=== PATIENT | male | born 1960 | race Caucasian/White ===

== ENCOUNTER 2017-08-20 09:49 | Day surgery (SDC) | payer OTHER, SELFPAY ==
--- NOTE | 2017-08-14 09:18 | EKG12_ITS ---
Test Reason : PRE OP Blood Pressure : / mmHG Vent. Rate : 047 BPM Atrial Rate : 047 BPM P-R Int : 220 ms QRS Dur : 098 ms QT Int : 470 ms P-R-T Axes : 069 -06 012 degrees QTc Int : 415 ms Marked sinus bradycardia with 1st degree A-V block Abnormal ECG Confirmed by LIZ BLAKE, ALEX ([id number]), deputy editor in chief MARICRUZ ARANA ([id number]) on 08/15/2017 3:18:30 PM Referred By: Sarkis Mcdonald Confirmed By:ALEX HILL MD
[2017-08-14 11:27] LABS: Anion Gap 5 (5-15); BUN 16 mg/dL (7-18); BUN/Creat Ratio 15.7 RATIO (10-20); Calcium,Total 8.6 mg/dL (8.5-10.1); Chloride 106 mmol/L (98-107); Creatinine, Serum 1.02 mg/dL (0.70-1.30); EST Glomerular Filtration Rate 80 mL/min (>60); Est Glom Filt Rate - Afr Amer 97 mL/min (>60); Glucose 104 mg/dL (74-106); Potassium 3.9 mmol/L (3.5-5.1); Sodium Level 141 mmol/L (136-145)
--- NOTE | 2017-08-20 | TUR_PTH ---
PATIENT: ALEYDA PEPE [place] [facility] [id number] AGE/SX: 56/M ROOM: RE08/20/[address]: Dr. Sarkis Mcdonald MD : [id number] BED: DIS: 08/20/2017 SPEC #: [id number] RECD: 08/20/17 14:33 STATUS: PAPA TORI #: [id number] MIKE: 08/20/17 00:[address]: Sarkis Mcdonald DEPT: SURGICAL PATHOLOGY RECD BY: Channing Richardson ENTERED: 08/20/17 14:33 SP TYPE: TURBINATES OTHR DR: Dr. Octavio García MD Tissues: Nasal turbinate, NOS Procedures: Surgery Specimen Level IV HEADER OPERATION: Submucous resection inferior turbinates, bilaterally PRE-OP DIAGNOSIS: Nasal congestion hypertrophy of nasal turbinates TISSUE SUBMITTED: Turbinate tissue, right and left MICROSCOPIC DIAGNOSIS Turbinate tissue, right and left: Fragments of respiratory mucosal tissue with minimal chronic inflammation, fibroconnective tissue and blood clots. ANIKA:octavio 08/21/17 MICROSCOPIC DESCRIPTION Slides are reviewed. GROSS DESCRIPTION Received in fixative is one container labeled with the patient's name and designated right and left turbinate tissue. The specimen consists of multiple irregular fragments of light mclain soft tissue that in aggregate measure 1 x 0.5 x 0.1 cm. The specimen is totally submitted in one cassette. / AM:octavio 08/20/17 TC:3 CPT: 32405
[2017-08-20 10:06] VITALS: BP 139/91; PULSE 52; RESP 16; TEMP 35.6; O2SAT 96; BMI 29.9
[2017-08-20 10:06] LABS: Hematocrit 41.8 % (40-54); Hemoglobin 14.5 g/dl (13.0-16.5); Mean Corp Hgb Conc 34.7 g/gl (32-36); Mean Corpuscular Hgb 29.3 pg (27.0-32.0); Mean Corpuscular Volume 84.4 fL (80-94); Mean Platelet Vol. 10.1 fl (6.2-12.0); Platelet Count 90 K/mm3 (150-450); RBC Distribution Width CV 13.2 % (11.6-14.6); RBC Distribution Width SD 40.3 fl (35.1-43.9); Red Blood Count 4.95 M/mm3 (4.6-6.2); White Blood Count 2.4 K/mm3 (4.4-11.0)
[2017-08-20 10:07] LABS: Scan Indicated on CBC? Y/N NO
--- NOTE | 2017-08-20 10:12 | PCM.DC ---
You will use the following diet at home:: Regular Discharge Activity: Return to Normal Activity, - - No nose blowing Additional Activity Instructions:: Start saline irrigation 3x/day on 08/21/17. Allergies/Adverse Reactions: Allergies fluoxetine [From Prozac] Allergy (Verified 08/13/17 10:00) Hives oxycodone Adverse Reaction (Verified 08/13/17 10:00) HICCUPS Medications to take at Discharge B Complex with Vitamin C [Vitamin B-Complex with Vit C] 1 each PO DAILY 09/29/16 Doxazosin Mesylate [Cardura] 8 mg PO DAILY 09/29/16 Fish Oil/Dha/Epa [Fish Oil 1,200 mg Fish Oil] 1 each PO BID 09/29/16 Milk Thistle Seed Extract [Milk Thistle] 250 mg PO BID 09/29/16 Multivitamin [Multiple Vitamins] 1 each PO DAILY 09/29/16 Nadolol [Corgard (Beta Chaitanya)] 80 mg PO DAILY 09/29/16 Omeprazole [Prilosec] 40 mg PO DAILY 09/29/16 RX: Hydrochlorothiazide 12.5 mg PO DAILY 09/29/16 RX: Melatonin 10 mg PO QHS 08/13/17 RX: Naproxen 500 mg PO PRN PRN 08/13/17 Rizatriptan Benzoate [Rizatriptan] 10 mg PO PRN PRN 08/13/17 Verapamil HCl [Verapamil ER] 180 mg PO DAILY 08/13/17 Primary Care Physician: Octavio García MD [Primary Care Provider] -
[2017-08-20] MEDS: Mupirocin Ointment 22gm Tube 1 APPLIC (11:00)
[2017-08-20] MEDS: Oxymetazoline 0.05% 1 SPRAY SPRAY.BTL 15 SPRAY (11:00)
--- NOTE | 2017-08-20 11:14 | PCM.OPRPT ---
Report of Operation Date of Procedure: 08/20/17 Pre-Operative Diagnosis: nasal airway obstruction. Inferior turbinate hypertrophy bilaterally Post-Operative Diagnosis: same Surgery/Procedure Performed:: Bilateral submucous resection inferior turbinates Description of Surgical Findings:: 4+ turbinates Type of Anesthesia:: General Anesthesiologist: Rudi Nazario Specimen's removed: turbinate contents Estimated Blood Loss (mL): minimal Description of Procedure: The patient was taken to the OR on 08/20/17. He was placed in the supine position on the operating room table. He was given sufficient general anesthesia. He was draped steriley. 1% lidocaine with epinephrine ([id number]) was injected into the nasal septum, bilateral anterior portion of the inferior turbinates. I made an incision on the left side at the mucocutaneous junction of the anterior end of the inferior turbinate. I then made a submucosal plane with a [place] elevator. Next, submucous resection was carried out with a microdebrider. Afrin pledgets were used for hemostasis. I then closed the incision with a 4-0 chromic. I made an incision on the right side at the mucocutaneous junction of the anterior end of the inferior turbinate. I then made a submucosal plane with a Oscar elevator. Next, submucous resection was carried out with a microdebrider. Afrin pledgets were used for hemostasis. I then closed the incision with a 4-0 chromic. Jean-Pierre was applied to both incisions. Correia nasal splints were applied to each side of the septum and sewn through and through with 3-0 silk. The procedure was terminated. The patient was awoken and brought to the recovery room in stable condition. Blood loss minimal, replacement none. Sponge, needle and instrument count were correct at the end of the procedure.
--- NOTE | 2017-08-20 11:21 | OP.PCM_ITS ---
Report of Operation Date of Procedure: 08/20/17 Pre-Operative Diagnosis: nasal airway obstruction. Inferior turbinate hypertrophy bilaterally Post-Operative Diagnosis: same Surgery/Procedure Performed:: Bilateral submucous resection inferior turbinates Description of Surgical Findings:: 4+ turbinates Type of Anesthesia:: General Anesthesiologist: Rudi Nazario Specimen's removed: turbinate contents Estimated Blood Loss (mL): minimal Description of Procedure: The patient was taken to the OR on 08/20/17. He was placed in the supine position on the operating room table. He was given sufficient general anesthesia. He was draped steriley. 1% lidocaine with epinephrine (1:[id number]) was injected into the nasal septum, bilateral anterior portion of the inferior turbinates. I made an incision on the left side at the mucocutaneous junction of the anterior end of the inferior turbinate. I then made a submucosal plane with a [employer] [place] elevator. Next, submucous resection was carried out with a microdebrider. Afrin pledgets were used for hemostasis. I then closed the incision with a 4-0 chromic. I made an incision on the right side at the mucocutaneous junction of the anterior end of the inferior turbinate. I then made a submucosal plane with a Oscar elevator. Next, submucous resection was carried out with a microdebrider. Afrin pledgets were used for hemostasis. I then closed the incision with a 4-0 chromic. Jean-Pierre was applied to both incisions. Correia nasal splints were applied to each side of the septum and sewn through and through with 3-0 silk. The procedure was terminated. The patient was awoken and brought to the recovery room in stable condition. Blood loss minimal, replacement none. Sponge, needle and instrument count were correct at the end of the procedure.
[2017-08-20 11:23] VITALS: BP 139/91; BP 154/99; PULSE 68; RESP 16; TEMP 36.4; O2SAT 95
[2017-08-20 11:30] VITALS: BP 139/91; BP 162/108; PULSE 67; RESP 16; O2SAT 95
[2017-08-20 11:45] VITALS: BP 139/91; BP 176/107; PULSE 60; RESP 16; O2SAT 95
[2017-08-20 12:00] VITALS: BP 139/91; BP 187/99; PULSE 59; RESP 16; TEMP 36.2; O2SAT 94
[2017-08-20 13:06] VITALS: BP 139/91
== END 2017-08-20 13:12 | disposition home or self-care (01) ==
LOC: SDC 09:50 → AC 09:50
PROVIDERS: Anesthesiology; Family Provider Family Medicine; PCP Family Medicine; Visit Provider Otolaryngology
PROC: (CPT 30520; principal; 2017-08-20 10:50)
DX: J34.3 Hypertrophy of nasal turbinates (principal); J34.89 Other specified disorders of nose and nasal sinuses; I10 Essential (primary) hypertension; K21.9 Gastro-esophageal reflux disease without esophagitis; G43.909 Migraine, unspecified, not intractable, without status migrainosus; Z79.899 Other long term (current) drug therapy; Z82.49 Family history of ischemic heart disease and other diseases of the circulatory system
CPT/HCPCS: 00160; 30140; 36415; 80048; 85027; 88304; 88305; J7120

== ENCOUNTER → 2020-09-24 07:29 | Outpatient (CLI) | payer OTHER, SELFPAY ==
--- NOTE | 2020-09-24 07:38 | US_ITS ---
STUDY: ABDOMINAL ULTRASOUND REASON FOR EXAM: Male, 59 years old. ALCOHOLIC CIRRHOSIS TECHNIQUE: Transabdominal ultrasound was performed with real-time and static corado scale imaging. TECHNICAL QUALITY: Adequate. COMPARISON: None. FINDINGS: Liver: The liver measures 17.3 cm. There is a heterogeneous echogenicity of the liver. The bile ducts are within normal limits. There is hepatic color flow. The direction of portal flow is hepatopetal. There is no demonstrated mass lesion. Portal vein measurement: Gallbladder: The patient is status post cholecystectomy. Common Bile Duct (C.B.D.): The common bile duct measures 5 mm. Pancreas: There is nonvisualization of the pancreas due to overlying bowel gas. Spleen: There is splenomegaly. The spleen measures 19.1 cm x 10.3 cm x 9.2 cm. Right Kidney: Normal size of the right kidney. The right kidney measures 12.6 cm x 5.9 cm x 7.2 cm. Normal renal cortex. The right cortex measures 2.3 cm. There is no demonstrated renal mass or cyst. There is no right hydronephrosis. Left Kidney: Normal size of the left kidney. The left kidney measures 13.1 cm x 5.5 cm x 5.3 cm. Normal renal cortex. The left cortex measures 1.6 cm. There is a 2.6 cm x 1.8 cm x 2.5 cm cyst in the upper pole of the left kidney. There is no left hydronephrosis. Aorta: Unremarkable I.V.C.: The IVC is patent. There is no ascites. US/Abdomen Complete IMPRESSION: Heterogeneous echotexture of the liver. Splenomegaly. Left renal cyst. Electronically Signed: Tam Valdez MD at 10:06 EDT , Service support ,
== END ==
PROVIDERS: PCP Family Medicine; Referring Provider Internal Medicine Gastroenterology; Visit Provider Internal Medicine Gastroenterology
DX: K70.30 Alcoholic cirrhosis of liver without ascites (principal); R16.1 Splenomegaly, not elsewhere classified; D69.6 Thrombocytopenia, unspecified
CPT/HCPCS: 76700

== ENCOUNTER → 2021-10-07 | Outpatient (CLI) | payer OTHER, SELFPAY | END | disposition home or self-care (01) | PROVIDERS: PCP Family Medicine; Visit Provider Otolaryngology | DX: G47.33 Obstructive sleep apnea (adult) (pediatric) (principal) | CPT/HCPCS: 95810 ==

== ENCOUNTER → 2021-12-28 | Outpatient (CLI) | payer OTHER, SELFPAY ==
[2021-12-28 17:42] LABS: Absolute Lymphocyte Count 0.52 X10^3/uL (0.83-4.51); Absolute Neutrophil Count 2.1 X10^3/uL (2.0-7.7); Basophil# 0.01 X10^3/uL; Basophil% 0.3 % (0-1); Eosinophil# 0.03 X10^3/uL; Hemoglobin 15.4 g/dL (13.0-16.5); Lymphocyte # 0.52 X10^3/ul (0.83-4.51); Lymphocyte % 17.6 % (19-41); Mean Corp Hgb Conc 33.5 g/dL (32-36); Mean Corpuscular Hgb 29.2 pg (27.0-32.0); Mean Corpuscular Volume 87.1 fL (80-94); Mean Platelet Vol. 11.1 fl (6.2-12.0); Monocyte# 0.27 X10^3/uL; Monocyte% 9.2 % (0-10); NRBC Flagged by Analyzer 0 % (0-5); Neutrophil # 2.11 X10^3/uL (2.7-7.7); Neutrophil % 71.6 % (47-70); POSITIVE COUNT YES; POSITIVE DIFFERENTIAL YES; Platelet Count 72 K/mm3 (150-450); RBC Distribution Width CV 13.7 % (11.6-14.6); RBC Distribution Width SD 44.2 fl (35.1-43.9); Red Blood Count 5.28 M/mm3 (4.6-6.2)
[2021-12-28 17:48] LABS: Differential Indicated SCAN CRITERIA MET
[2021-12-28 18:07] LABS: Differential Comment SCANNED
[2021-12-28 18:09] LABS: ALB/GLOB Ratio 1.2 RATIO (0.9-2.4); AST(SGOT) 28 U/L (15-37); Alanine Aminotransfer ALT/SGPT 42 U/L (16-61); Albumin, Serum 3.9 g/dL (3.2-5.0); Alkaline Phosphatase 68 U/L (45-117); Anion Gap 7 (5-15); BUN 29 mg/dL (7-18); BUN/Creat Ratio 20.7 RATIO (10-20); Calcium,Total 9.1 mg/dL (8.5-10.1); Chloride 108 mmol/L (98-107); EST Glomerular Filtration Rate 55 mL/min (>60); Est Glom Filt Rate - Afr Amer 66 mL/min (>60); Globulin 3.2 g/dL (2.2-4.2); Glucose 103 mg/dL (74-106); Potassium 3.9 mmol/L (3.5-5.1); Protein, Total 7.1 g/dL (6.4-8.2); Sodium Level 141 mmol/L (136-145)
[2021-12-29 13:22] LABS: Pathologist Review Reviewed
[2021-12-30 10:27] LABS: AFP, Tumor Marker 4.8 ng/mL (0.0-8.4)
== END | disposition home or self-care (01) ==
PROVIDERS: PCP Family Medicine; Referring Provider Internal Medicine Gastroenterology; Visit Provider Internal Medicine Gastroenterology
DX: K74.60 Unspecified cirrhosis of liver (principal)
CPT/HCPCS: 36415; 80053; 82105; 85025; 85730; 87086

== ENCOUNTER → 2022-01-04 | Outpatient (CLI) | payer OTHER, SELFPAY ==
--- NOTE | 2022-01-04 13:00 | MRI_ITS ---
EXAM: MR ABDOMEN WITHOUT AND WITH INTRAVENOUS CONTRAST CLINICAL INDICATION: CIRRHOSIS TECHNIQUE: Multiplanar and multisequence MR images of the abdomen without and with intravenous contrast. This report was created using [employer] report [employer] technology. CONTRAST: IV 22ml Dotarem COMPARISON: None. FINDINGS: LOWER THORAX: Unremarkable. No pleural effusion. LIVER: There is a diffuse contour abnormality of the liver consistent with cirrhotic changes. GALLBLADDER AND BILE DUCTS: There is non-visualization of the gallbladder, which may be secondary to either contraction or a prior cholecystectomy. No intra- or extrahepatic biliary ductal dilation. PANCREAS: Unremarkable. No focal cystic or solid mass. SPLEEN: There is severe splenomegaly. ADRENALS: Unremarkable. No nodules. KIDNEYS AND URETERS: Unremarkable. Normal renal size and position. No hydronephrosis. INTRAPERITONEAL SPACE: Unremarkable. No ascites or other fluid collection. No free air. VASCULATURE: Unremarkable. Abdominal aorta is non-dilated. LYMPH NODES: No enlarged lymph nodes. MRI/MRI Abd WITH and W/O Contrast IMPRESSION: 1. There is a diffuse contour abnormality of the liver consistent with cirrhotic changes. 2. There is severe splenomegaly. Electronically Signed: Derian Padilla MD at 20:10 EDT ,
== END | disposition home or self-care (01) ==
LOC: MRI 12:16
PROVIDERS: PCP Family Medicine; Visit Provider Internal Medicine Gastroenterology
DX: K74.60 Unspecified cirrhosis of liver (principal); R16.1 Splenomegaly, not elsewhere classified
CPT/HCPCS: 74183; A9575; A4216

== ENCOUNTER → 2023-05-21 | Outpatient (CLI) | payer OTHER, SELFPAY ==
--- NOTE | 2023-05-21 06:35 | EKG12_ITS ---
Test Reason : PREOP Blood Pressure : / mmHG Vent. Rate : 062 BPM Atrial Rate : 062 BPM P-R Int : 216 ms QRS Dur : 092 ms QT Int : 432 ms P-R-T Axes : 061 -13 006 degrees QTc Int : 438 ms Sinus rhythm with 1st degree A-V block with Premature atrial complexes Otherwise normal ECG Confirmed by LIZ BLAKE, ALEX ([id number]), food editor HALLEY MCCORMICK ([id number]) on 05/21/2023 2:32:42 PM Referred By: Sarkis Mcdonald Confirmed By:ALEX HILL MD
[2023-05-21 07:04] LABS: Hematocrit 41.9 % (40-54); Mean Corp Hgb Conc 33.4 g/dL (32-36); Mean Corpuscular Hgb 28.7 pg (27.0-32.0); Mean Platelet Vol. 11.3 fl (6.2-12.0); Platelet Count 102 K/mm3 (150-450); RBC Distribution Width CV 13.5 % (11.6-14.6); RBC Distribution Width SD 42.3 fl (35.1-43.9); Red Blood Count 4.87 M/mm3 (4.6-6.2); White Blood Count 3.4 K/mm3 (4.4-11.0)
[2023-05-21 07:32] LABS: Anion Gap 5 (5-15); BUN 24 mg/dL (7-18); BUN/Creat Ratio 25.5 RATIO (10-20); Calcium,Total 8.9 mg/dL (8.5-10.1); Chloride 110 mmol/L (98-107); Creatinine, Serum 0.94 mg/dL (0.70-1.30); EST Glomerular Filtration Rate 86 mL/min (>60); Est Glom Filt Rate - Afr Amer 104 mL/min (>60); Glucose 107 mg/dL (74-106); Potassium 4.2 mmol/L (3.5-5.1); Sodium Level 141 mmol/L (136-145)
== END | disposition home or self-care (01) ==
LOC: PSN 06:35
PROVIDERS: Referring Provider Otolaryngology; Visit Provider Otolaryngology
DX: Z01.818 Encounter for other preprocedural examination (principal)
CPT/HCPCS: 36415; 80048; 85027; 93005

== ENCOUNTER → 2024-02-29 | Outpatient (CLI) | payer OTHER, SELFPAY ==
[2024-02-29 10:29] LABS: Absolute Lymphocyte Count 0.79 X10^3/uL (0.83-4.51); Absolute Neutrophil Count 2.4 X10^3/uL (2.0-7.7); Basophil# 0.03 X10^3/uL; Basophil% 0.8 % (0-1); Eosinophil# 0.04 X10^3/uL; Eosinophils% 1.1 % (0-5); Hematocrit 45.2 % (40-54); Hemoglobin 14.9 g/dL (13.0-16.5); Lymphocyte # 0.79 X10^3/ul (0.83-4.51); Lymphocyte % 21.8 % (19-41); Mean Corpuscular Hgb 28.1 pg (27.0-32.0); Mean Corpuscular Volume 85.3 fL (80-94); Mean Platelet Vol. 10.9 fl (6.2-12.0); Monocyte# 0.36 X10^3/uL; Monocyte% 9.9 % (0-10); NRBC Flagged by Analyzer 0 % (0-5); Neutrophil # 2.39 X10^3/uL (2.7-7.7); Neutrophil % 66.1 % (47-70); POSITIVE COUNT YES; Platelet Count 94 K/mm3 (150-450); RBC Distribution Width SD 43.3 fl (35.1-43.9); White Blood Count 3.6 K/mm3 (4.4-11.0)
[2024-02-29 10:36] LABS: Differential Indicated SCAN CRITERIA MET
[2024-02-29 10:52] LABS: Hemoglobin A1c 5.3 % (3.8-5.6)
[2024-02-29 10:58] LABS: ALB/GLOB Ratio 1.2 RATIO (0.9-2.4); AST(SGOT) 24 U/L (15-37); Alanine Aminotransfer ALT/SGPT 32 U/L (16-61); Albumin, Serum 4.1 g/dL (3.2-5.0); Alkaline Phosphatase 66 U/L (45-117); Anion Gap 5 (5-15); BUN 19 mg/dL (7-18); BUN/Creat Ratio 21.3 RATIO (10-20); CRP < 2.90 mg/L (0.0-3.0); Calcium,Total 9.2 mg/dL (8.5-10.1); Chloride 109 mmol/L (98-107); Cholesterol 207 mg/dL (200); Creatinine, Serum 0.89 mg/dL (0.70-1.30); EST Glomerular Filtration Rate 91 mL/min (>60); Est Glom Filt Rate - Afr Amer 110 mL/min (>60); Ferritin 54 ng/mL (26-388); Globulin 3.3 g/dL (2.2-4.2); Glucose 102 mg/dL (74-106); High Density Lipoprotein 45 mg/dL; Iron 101 ug/dL (65-175); Iron Binding Capacity,Total 374 ug/dL (250-450); Potassium 3.7 mmol/L (3.5-5.1); Protein, Total 7.4 g/dL (6.4-8.2); Sodium Level 140 mmol/L (136-145); Triglycerides 79 mg/dL; Very Low Density Lipoprotein 16 mg/dL (5-40)
[2024-02-29 10:59] LABS: International Normalized Ratio 1.3; Prothrombin Time (Protime)PT. 16.6 SECONDS (11.7-14.9)
[2024-02-29 11:08] LABS: Platelet Estimate MOD DEC (ADEQ)
[2024-02-29 11:14] LABS: HIV - WCH Non-Reactive (Nonreactive); Vitamin D,25 Hydroxy 62.4 ng/mL
[2024-03-03 13:08] LABS: ANTINUCLEAR ANTIBODIES DIRECT Negative (Negative); Anti-Centromere B Ab <0.2 AI (0.0-0.9); Anti-Chromatin <0.2 AI (0.0-0.9); Anti-Jo <0.2 AI (0.0-0.9); Anti-Mitochondrial AB <20.0 Units (0.0-20.0); Anti-Scleroderma-70 AB <0.2 AI (0.0-0.9); Anti-dsDNA Ab <1 IU/mL (0-9); RNP Ab <0.2 AI (0.0-0.9); SJOGREN'S Anti-SS-A test < 0.2 AI (0.0-0.9); SJOGREN'S Anti-SS-B test < 0.2 AI (0.0-0.9); Smith Ab <0.2 AI (0.0-0.9)
[2024-03-06 00:06] LABS: AFP, Tumor Marker 4.6 ng/mL (0.0-8.4); Albumin 3.7 g/dL (2.9-4.4); Alpha-1-Globulins 0.2 g/dL (0.0-0.4); Alpha-2-Globulins 0.7 g/dL (0.4-1.0); Angiotensin Convert Enzyme 27 U/L (14-82); Anti-Smooth Muscle ABS 9 Units (0-19); Ceruloplasmin 17.9 mg/dL (16.0-31.0); Copper, Serum or Plasma 70 ug/dL (69-132); Cytoplasmic Ab (C-ANCA) <1:20 titer (Neg:<1:20); Free Kappa Light Chains 21.1 mg/L (3.3-19.4); Free Lambda Light Chains 18.4 mg/L (5.7-26.3); Gamma Globulin 1.2 g/dL (0.4-1.8); HCV Quant. RNA PCR HCV Not Detected IU/mL (.); HEPATITIS B SURFACE AG Negative (Negative); Haptoglobin 35 mg/dL (32-363); Hep C Antibodies Non Reactive (Non Reactive); Hepatitis A IgM Antibody Negative (Negative); Hepatitis B Core AB IgM Negative (Negative); Immunoglobulin A 169 mg/dL (61-437); Immunoglobulin E 21 IU/mL (6-495); Immunoglobulin G 1089 mg/dL (603-1613); Immunoglobulin M 43 mg/dL (20-172); PROEL- TOTAL PROTEIN 6.9 g/dL (6.0-8.5); Perinuclear Ab (P-ANCA) <1:20 titer (Neg:<1:20)
== END | disposition home or self-care (01) ==
LOC: LAB 09:44
PROVIDERS: Referring Provider Internal Medicine; Visit Provider Internal Medicine
DX: K70.30 Alcoholic cirrhosis of liver without ascites (principal); K21.9 Gastro-esophageal reflux disease without esophagitis; D69.6 Thrombocytopenia, unspecified; I10 Essential (primary) hypertension; B19.20 Unspecified viral hepatitis C without hepatic coma
CPT/HCPCS: 36415; 80053; 80061; 80074; 82105; 82140; 82164; 82306; 82390; 82525; 82728; 82784; 82785; 83010; 83036; 83516; 83540; 83550; 83883; 84165; 84443; 85025; 85610; 86038; 86140; 86225; 86235; 86256; 86334; 86703; 87522

== ENCOUNTER → 2024-06-13 | Outpatient (CLI) | payer OTHER, SELFPAY ==
--- NOTE | 2024-06-13 07:11 | US_ITS ---
STUDY: ABDOMINAL ULTRASOUND - RIGHT UPPER QUADRANT; ELASTOGRAPHY REASON FOR VISIT: Male, 63 years old. Cirrhosis. TECHNIQUE: Ultrasound evaluation of the right upper quadrant was performed with real-time and static corado-scale imaging. Point quantification shear wave elastography was performed ([employer]). TECHNICAL QUALITY: Adequate. COMPARISON: Comparison is made with prior study September 24, 2020. FINDINGS: Liver: The liver measures 16.7 cm. There is a heterogeneous echogenicity of the liver. The bile ducts are within normal limits. There is hepatic color flow. The direction of portal flow is hepatopetal. There is no demonstrated mass lesion. Median liver stiffness measured 13.2 kPa. Gallbladder: The patient is status post cholecystectomy. Common Bile Duct (C.B.D.): The common bile duct measures 4 mm. Pancreas: The pancreas is not visualized due to overlying bowel gas. Right Kidney: Normal size of the right kidney. The right kidney measures 12 cm x 6.1 cm x 6.4 cm. Normal renal cortex. The right cortex measures 1.6 cm. There is no demonstrated renal mass or cyst. There is no right hydronephrosis. IMPRESSION: 1. Liver stiffness measures 13.2 kPa compatible with F3-F4 (Moderate to severe liver fibrosis) Metavir score. Electronically Signed: Tam Valdez MD at 13:22 EST , STUDY: ABDOMINAL ULTRASOUND - LEFT UPPER QUADRANT REASON FOR EXAM: Male, 63 years old. CIRRHOSIS -- including spleen, R/O ascites TECHNIQUE: Transabdominal ultrasound was performed with real-time and static corado scale imaging. TECHNICAL QUALITY: Adequate. COMPARISON: None. FINDINGS: Spleen: There is splenomegaly. The spleen measures 17.2 cm x 9.8 cm x 6.8 cm. US/ABD Limited w/ Elastography IMPRESSION: Splenomegaly. Electronically Signed: Tam Valdez MD at 13:22 EST ,
== END | disposition home or self-care (01) ==
LOC: US 07:09
PROVIDERS: Referring Provider Internal Medicine; Visit Provider Internal Medicine
DX: K70.30 Alcoholic cirrhosis of liver without ascites (principal); K21.9 Gastro-esophageal reflux disease without esophagitis; I10 Essential (primary) hypertension
CPT/HCPCS: 76705; 76981

== ENCOUNTER 2024-07-22 10:35 | Day surgery (SDC) | payer OTHER, SELFPAY ==
--- NOTE | 2024-07-17 17:00 | PAT.ANE_ITS ---
Pre-Assessment Diagnosis/Proposed Procedure Planned Operative Procedure(s): EGD Anesthesia History Anesthesia History - gear tester: Anesthesia History - gear tester Hx Hospitalization No 07/17/24 14:55 Any Problems With Anesthesia No 07/17/24 14:55 Cholinesterase deficiency No 07/17/24 14:55 You/Your Family Experience No 07/17/24 14:55 fever (hyperthermia) with Relationship Recent Exposure to Contagious No 02/29/24 09:30 Disease Does patient have nerve No 07/17/24 14:55 stimulator Patient instructed to have device shut off --Does patient have Pacemaker or ICD? When Was Last Pacemaker Check QUESTION #4 FULL TEXT: You/Your Family Experience fever (hyperthermia) with Anesthesia Last Oral Intake Last Oral intake: Last Oral Intake NPO since Meds taken in AM with sips of water? Meds patient instructed to take am of surgery PONV PONV - gear tester: PONV - gear tester Female No 07/17/24 14:55 HX of Motion Sickness No 07/17/24 14:55 HX of N/V After Surgery No 07/17/24 14:55 Non-Smoker Yes 07/17/24 14:55 Duration of Surgery greater No 07/17/24 14:55 than 60 minutes Number of Risk Factors 1 07/17/24 14:55 PONV Score Low Risk 07/17/24 14:55 Height & Weight Height & Weight: Anesthesia: Height & Weight Height 6 ft 4 in 05/13/24 08:36 Respiratory Assessment Respiratory Assessment - gear tester: Respiratory Tract Infection Hx - gear tester Hx Respiratory Tract Infection No 07/17/24 14:55 STOP Sleep Apnea STOP Sleep Apnea - gear tester: STOP Sleep Apnea - gear tester Hx Hypertension Yes: ON MEDS/NOT ALWAYS 07/17/24 14:55 CONTROLLED Hx Sleep Apnea No 07/17/24 14:55 CPAP No 07/17/24 14:55 BIPAP Do you snore loudly (louder No 07/17/24 14:55 than talking or can be heard Do you often feel tired/ No 07/17/24 14:55 fatigued/ sleepy during daytime? Has anyone observed you stop No 07/17/24 14:55 breathing during sleep? STOP Results Negative 07/17/24 14:55 QUESTION #5 FULL TEXT : Do you snore loudly (louder than talking or can be heard through closed doors)? 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 Specify any problems Hx of Preganancy in last 3 N/A 07/17/24 14:55 Months Nurse Filling Out Transfusion MGRIRADHAITH 07/17/24 14:55 & Questions: Date: 07/17/24 07/17/24 14:55 Time: 14:57 07/17/24 14:55 Patient unable to answer at this time (ie. confused, unrespo /Reproduction History /Reproductive History - gear tester: /Reproductive Hx- gear tester Hx Now Gestational Age (in weeks): EDC: Hx Hx Para Hx [facility] Medical History (Updated 07/17/24 @ 15:02 by Gladys iDetz) Wears hearing aid Wears glasses Cirrhosis Migraine headache Gastric reflux Non-smoker Palpitations Low back pain Dyslipidemia Urinary incontinence, functional Hypertension Erectile dysfunction Chronic migraine Prostate cancer Thrombocytopenia Alcohol abuse Arthritis Hiatal hernia GERD (gastroesophageal reflux disease) Alcoholic cirrhosis of liver Restless leg syndrome Home Medications ?Medication ?Instructions ?Recorded ?Last Taken ?Type multivitamin (Multiple Vitamins 1 ea PO DAILY 09/29/16 Unknown History tablet) coenzyme Q10 75 mg capsule (Ultra 400 mg PO DAILY 10/03 10/23 Unknown History CoQ10) rimegepant 75 mg disintegrating 75 mg PO ONCE PRN migr morelia headache 10/26/21 Unknown History tablet (Nurtec ODT) sumatriptan succinate 100 mg tablet 100 mg PO ONCE PRN migraine 10/26/21 Unknown History headache carvedilol 6.25 mg tablet 12.5 mg PO BID 02/29/24 Unkn own History cholecalciferol (vitamin D3) 125 125 mcg PO QDAY 02/28 Unknown History mcg (5,000 unit) tablet omeprazole 20 mg capsule,delayed 20 mg PO QDAY 4 Unknown History release valsartan 80 mg tablet 80 mg PO QDAY 02/29/24 Unkno wn History verapamil 180 mg tablet,extended 180 mg PO BID 4 Unknown History release vitamin B complex 1 cap PO QDAY 02/29/24 Unkno wn History tadalafil 20 mg tablet 20 mg PO DAILY PRN sexual ac tivity 07/10/24 Unknown History Allergy/AdvReac Type Severity Reaction Status Date / Time fluoxetine (From [facility]) Allergy Hives Verified 07/17/24 14:51 sertraline Allergy Rash Verified 07/17/24 14:51 doxazosin AdvReac Weakness Verified 07/17/24 14:51 oxycodone AdvReac HICCUPS Verified 07/17/24 14:51 Family History Mother Arthritis Hypertension Father CAD (coronary artery disease) Heart disease Brother Cancer Liver Other Alcoholism Surgical History (Updated 07/17/24 @ 14:55 by Gladys Dietz) History of hernia surgery History of esophagogastroduodenoscopy (EGD) History of colonoscopy History of vasectomy History of toe surgery History of radical prostatectomy History of total left knee replacement H/O prostatectomy History of cholecystectomy Social History Smoking Status: Never smoker alcohol intake: former year quit: 2008 substance use type: does not use Audit: Pertinent Findings Pertinent Findings EKG Perinent findings: May 21, 2023. Sinus rhythm with first-degree AV block with premature atrial complexes. Recommendation Anesthesia Recommendation Anesthesia recommendation: OPTIMIZED for anesthesia
[2024-07-22] VITALS (8 sets, daily range): BP systolic 134–160; BP diastolic 90–100; PULSE 49–72; RESP 12–18; TEMP 36.1–36.4; O2SAT 94–97; BMI 29.7
--- NOTE | 2024-07-22 11:49 | PRE.ANES_ITS ---
ASA Classification* ASA Classification ASA Classification: 3 Assessment & Plan Anesthesia* Anesthesia Assessment Anesthesia Assessment: Discussed sedation and/or anesthesia options, risks, benefits, and alternatives with patient/parents/legal guardian/POA. Questions invited. The patient/parents/legal guardian/POA seems to understand and agrees to proceed with anesthesia plan. Reviewed the physical assessment, medical history, allergy history and patient home medications list prior to surgery/procedure/anesthetic and documented any changes. Performed airway and anesthesia risk assessments. Anesthesia Type Anesthesia Type: MAC History Source History Obtained from:: Patient and Chart Anesthesia Focused Assessment* Temperature: 97.6 F Pulse Rate: 49 Blood Pressure: 135/91 Respiratory Rate: 16 Pulse Ox: 97 Oxygen Delivery Method: Room Air Airway Assessment Mouth opens: >3 cm Mallampati Score: III Teeth Condition: Caps/Crowns (Patient has several crowns. They are all tight.) Neck Range of motion (ROM): Full ROM Focused Labs Anesthesia Preop lab: CBC WBC 3.6 K/mm3 (4.4-11.0) L 02/29/24 09:47 02/29/24 RBC 5.30 M/mm3 (4.6-6.2) 02/29/24 09:47 02/29/24 Hgb 14.9 g/dL (13.0-16.5) 02/29/24 09:47 02/29/24 Hct 45.2 % (40-54) 02/29/24 09:47 02/29/24 Plt Count 94 K/mm3 (150-450) L 02/29/24 09:47 02/29/24 CHEMISTRY Potassium 3.7 mmol/L (3.5-5.1) 02/29/24 09:47 02/29/24 Sodium 140 mmol/L (136-145) 02/29/24 09:47 02/29/24 BUN 19 mg/dL (7-18) H 02/29/24 09:47 02/29/24 Creatinine 0.89 mg/dL (0.70-1.30) 02/29/24 09:47 02/29/24 Glucose 102 mg/dL (74-106) 02/29/24 09:47 02/29/24 TSH 1.220 uIU/mL (0.358-3.740) 02/29/24 09:47 02/03 12/25 COAG PT 16.6 SECONDS (11.7-14.9) H 02/29/24 09:47 02/03 12/25 Pre-Assessment Diagnosis/Proposed Procedure Planned Operative Procedure(s): EGD Anesthesia History 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 When Was Last Pacemaker Check QUESTION #4 FULL TEXT: You/Your Family Experience fever (hyperthermia) with Anesthesia Last Oral Intake Last Oral intake: Last Oral Intake NPO since 07:00 07/22/24 11:05 Meds taken in AM with sips of water? Meds patient instructed to take am of surgery Any additional information?: Yes NPO since: 07:00 (Patient had coffee and water all completed by 7 AM.) Meds taken in AM with sips of water?: Yes PONV PONV - building engineer: PONV - building engineer Female No 07/17/24 14:55 HX of Motion Sickness No 07/17/24 14:55 HX of N/V After Surgery No 07/17/24 14:55 Non-Smoker Yes 07/17/24 14:55 Duration of Surgery greater No 07/17/24 14:55 than 60 minutes Number of Risk Factors 1 07/17/24 14:55 PONV Score Low Risk 07/17/24 14:55 Height & Weight Height & Weight: Anesthesia: Height & Weight Height 6 ft 4 in 07/22/24 11:05 Weight: 110.9 kg 07/22/24 11:05 Body Mass Index (BMI) 29.7 07/22/24 11:05 Respiratory Assessment Respiratory Assessment - building engineer: Respiratory Tract Infection Hx - building engineer Hx Respiratory Tract Infection No 07/17/24 14:55 STOP Sleep Apnea STOP Sleep Apnea - building engineer: STOP Sleep Apnea - building engineer Hx Hypertension Yes: ON MEDS/NOT ALWAYS 07/17/24 14:55 CONTROLLED Hx Sleep Apnea No 07/17/24 14:55 CPAP No 07/17/24 14:55 BIPAP Do you snore loudly (louder No 07/17/24 14:55 than talking or can be heard Do you often feel tired/ No 07/17/24 14:55 fatigued/ sleepy during daytime? Has anyone observed you stop No 07/17/24 14:55 breathing during sleep? STOP Results Negative 07/17/24 14:55 QUESTION #5 FULL TEXT : Do you snore loudly (louder than talking or can be heard through closed doors)? 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 Specify any problems Hx of Preganancy in last 3 N/A 07/17/24 14:55 Months Nurse Filling Out Transfusion MGRIANN 07/17/24 14:55 & Questions: Date: 07/17/24 07/17/24 14:55 Time: 14:57 07/17/24 14:55 Patient unable to answer at this time (ie. confused, unrespo /Reproduction History /Reproductive History - building engineer: /Reproductive Hx- building engineer Hx Now Gestational Age (in weeks): EDC: Hx Hx Para Hx Section SAB PFSH Medical History Wears hearing aid Wears glasses Cirrhosis Migraine headache Gastric reflux Non-smoker Palpitations Low back pain Dyslipidemia Urinary incontinence, functional Hypertension Erectile dysfunction Chronic migraine Prostate cancer Thrombocytopenia Alcohol abuse Arthritis Hiatal hernia GERD (gastroesophageal reflux disease) Alcoholic cirrhosis of liver Restless leg syndrome Home Medications ?Medication ?Instructions ?Recorded ?Last Taken ?Type multivitamin (Multiple Vitamins 1 ea PO DAILY 09/29/16 Unknown History tablet) rimegepant 75 mg disintegrating 75 mg PO ONCE PRN migr morelia headache 10/26/21 Unknown History tablet (Nurtec ODT) sumatriptan succinate 100 mg tablet 100 mg PO ONCE PRN migraine 10/26/21 Unknown History headache cholecalciferol (vitamin D3) 125 125 mcg PO QDAY 02/28 Unknown History mcg (5,000 unit) tablet omeprazole 20 mg capsule,delayed 20 mg PO QDAY 4 07/22/24 06:02 History release vitamin B complex 1 cap PO QDAY 02/29/24 Unkno wn History tadalafil 20 mg tablet 20 mg PO DAILY PRN sexual ac tivity 07/10/24 Unknown History amlodipine 10 mg tablet 10 mg PO QDAY #90 tabs 07/1807/22/24 06:00 Rx carvedilol 25 mg tablet 25 mg PO BID #180 tabs 07/1807/22/24 06:01 Rx coenzyme Q10 400 mg capsule 400 mg PO QDAY 07/18/24 Un known History lactobacillus combination no.4 3 3,000 mmu cells PO QD AY 07/18/24 Unknown History billion cell capsule (Probiotic) valsartan 160 mg tablet 160 mg PO QDAY #90 tabs 07/0507/22/24 06:01 Rx Allergy/AdvReac Type Severity Reaction Status Date / Time fluoxetine (From Prozac) Allergy Hives Verified 07/22/24 10:59 sertraline Allergy Rash Verified 07/22/24 10:59 doxazosin AdvReac Weakness Verified 07/22/24 10:59 oxycodone AdvReac HICCUPS Verified 07/22/24 10:59 Family History Mother Arthritis Hypertension Father CAD (coronary artery disease) Heart disease Brother Cancer Liver Other Alcoholism Surgical History History of hernia surgery History of esophagogastroduodenoscopy (EGD) History of colonoscopy History of vasectomy History of toe surgery History of radical prostatectomy History of total left knee replacement History of cholecystectomy Social History Smoking Status: Never smoker alcohol intake: former year quit: 2008 substance use type: does not use caffeine: Yes Type: coffee Number of servings: 2 Review of Systems (Anesthesia) ROS Narrative System reviewed and no additional complaints, except as documented.
--- NOTE | 2024-07-22 12:00 | IMM_PTH ---
PATIENT: ALEYDA PEPE LOC: EN U#:[id number] AGE/SX: 63/M ROOM: RE07/22/[address]: Dr. Bismark Montoya DO : 1960 BED: DIS: 07/22/2024 SPEC #: [id number] RECD: 07/23/24 08:34 STATUS: PAPA YVONLuly #: [id number] MIKE: 07/22/24 12:[address]: Bismark Montoya DEPT: IMMUNOHISTOCHEMISTRY RECD BY: Adelso Fields ENTERED: 07/23/24 08:34 SP TYPE: IMMUNO OTHR DR: Dr. Kevon Mackey DO Tissues: Gastric mucous membrane Procedures: H Pylori (initial) PHYSICIAN & INSTITUTION [place] [id number] SPECIMEN INFORMATION: Tissue Source: Gastric body biopsy Clinical Info: Alcoholic cirrhosis of liver, dyslipidemia Specimen Number: [id number] CPT code: 95906 METHODOLOGY: Deparaffinized sections of prefer/formalin-fixed tissue or PAP/DQ stained slides are incubated with monoclonal/polyclonal antibodies/oligonucleotide probes. Localization is made via biotin free immunoperoxidase method. Appropriate controls are performed and reacted as expected. Results on target cell population are indicated in the following table: RESULTS: ANTIBODY / CLONE RESULT H Pylori (polyclonal) negative These tests were developed and their performance characteristics determined by [facility]. They may not have been cleared or approved by the U.S. Food and Drug Administration. The FDA has determined that such clearance or approval is not necessary. The above immunohistochemical/dualISH markers are ordered and reviewed by the Pathologist. INTERPRETATION: Gastric body, biopsy: Negative for Helicobacter pylori organisms. 07/24/2024
--- NOTE | 2024-07-22 12:00 | EGD_PTH ---
PATIENT: ALEYDA PEPE LOC: EN U#:[id number] AGE/SX: 63/M ROOM: RE07/22/[address]: Dr. Bismark Montoya DO : 1960 BED: DIS: 07/22/2024 SPEC #: [id number] RECD: 07/22/24 14:40 STATUS: PAPA [place] #: [id number] MIKE: 07/22/24 12:[address]: Bismark Montoya DEPT: SURGICAL PATHOLOGY RECD BY: Aundrea Chin ENTERED: 07/23/24 07:50 SP TYPE: EGD BIOPSY NEGRO DR: Dr. Kevon Mackey, DO Tissues: Gastric mucous membrane Procedures: Surgery Specimen Level IV HEADER OPERATION: EGD, biopsy, banding PRE-OP DIAGNOSIS: Alcoholic cirrhosis of liver, dyslipidemia TISSUE SUBMITTED: Gastric body biopsy MICROSCOPIC DIAGNOSIS Gastric body, biopsy: Mild gastritis. See microscopic description and comment. 07/24/2024 COMMENT The results of immunohistochemistry for Helicobacter pylori will be reported separately ([id number]). MICROSCOPIC DESCRIPTION Slides are reviewed. The specimen shows fragments of gastric mucosa with chronic inflammatory cell infiltrates in the lamina propria consisting of lymphocytes and plasma cells, consistent with mild chronic gastritis. Focal mucosal congestion is also noted. GROSS DESCRIPTION Received in fixative is one container labeled with the patient's name and designated Gastric body biopsy. The specimen consists of two irregular fragments of light mclain soft tissue that in aggregate measure 1 x 0.5 x 0.1 cm. The specimen is totally submitted in one cassette. 07/23/2024 TC:3 CPT:77210
--- NOTE | 2024-07-22 12:24 | HP.PCM_ITS ---
[facility] - General General Date of Admission: 07/22/24 Date of Service: 07/22/24 Chief Complaint: varices screening [facility] Narrative ALEYDA PEPE, is a 63 M who presents for an EGD regarding variceal screening. Previously established with Dr. Marr for chronic liver issues. PMH alcoholic cirrhosis of liver, history of alcohol abuse, thrombocytopenia d/t liver disease, GERD. Cessation of alcohol in 2008. Omeprazole taken for GERD, symptoms under control. He is working hard with diet and exercise to lose weight. Denies any family related primary liver pathology but is a brother from [place] cancer metastasized to liver. 01.05.20 CT abdomen w/ contrast- liver is heterogenous with a micronodular contour consistent with given history of cirrhosis. No definite focal lesion identified. S/P cholecystectomy. Spleen heterogenous and enlarged. Portal vein measures 1.7 cm and appears patent. A subcentimeter RIGHT renal hypodensity is too small to accurately characterized but likely represents a cyst. A LEFT renal cycst is also shown. Small hiatal hernia. Atherosclerotic changes shown in the normal caliber aorta. Findings consistent with given history of cirrhosis with evidence of portal hypertension. 01.04.22 MRI abdomen w/wo contrast- Diffuse contour abnormality of liver consistent with cirrhotic changes. Severe splenomegaly. 11.20.22 US abdomen, Liver demonstrates heterogenous echogenicity with a lobulated border. A left renal cyst measures 2.6 x 2.8 x 2.3 cm. Spleen enlarged measures 17.8 x17.9 x 5.7. EGD, trace esophageal varices. No acute complaint. Patient quit alcohol about 15 years ago in 2008. 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 Kuo till now. Last blood work from January [address] abdomen and MRI reviewed. No recent history of GI bleed, ascites, jaundice or bleeding. Cirrhosis seems compensate 02.29.24- MELDna 9 OV 12..24- Pt well since last visit. Denies abdominal pain, changes in bowels, dizziness, confusion or swelling. No complaints today. [facility] Medical History (Updated 07/22/24 @ 12:[address] Sofia Friend, DO) Wears hearing aid Wears glasses Cirrhosis Migraine headache Gastric reflux Non-smoker Palpitations Low back pain Dyslipidemia Urinary incontinence, functional Hypertension Erectile dysfunction Chronic migraine Prostate cancer Thrombocytopenia Alcohol abuse Arthritis Hiatal hernia GERD (gastroesophageal reflux disease) Alcoholic cirrhosis of liver Restless leg syndrome Home Medications ?Medication ?Instructions ?Recorded ?Last Taken ?Type multivitamin (Multiple Vitamins 1 ea PO DAILY 09/29/16 Unknown History tablet) rimegepant 75 mg disintegrating 75 mg PO ONCE PRN migr morelia headache 10/26/21 Unknown History tablet (Nurtec ODT) sumatriptan succinate 100 mg tablet 100 mg PO ONCE PRN migraine 10/26/21 Unknown History headache cholecalciferol (vitamin D3) 125 125 mcg PO QDAY 02/28 Unknown History mcg (5,000 unit) tablet omeprazole 20 mg capsule,delayed 20 mg PO QDAY 4 07/22/24 06:02 History release vitamin B complex 1 cap PO QDAY 02/29/24 Unkno wn History tadalafil 20 mg tablet 20 mg PO DAILY PRN sexual ac tivity 07/10/24 Unknown History amlodipine 10 mg tablet 10 mg PO QDAY #90 tabs 07/1807/22/24 06:00 Rx carvedilol 25 mg tablet 25 mg PO BID #180 tabs 07/1807/22/24 06:01 Rx coenzyme Q10 400 mg capsule 400 mg PO QDAY 07/18/24 Un known History lactobacillus combination no.4 3 3,000 mmu cells PO QD AY 07/18/24 Unknown History billion cell capsule (Probiotic) valsartan 160 mg tablet 160 mg PO QDAY #90 tabs 07/0507/22/24 06:01 Rx Allergy/AdvReac Type Severity Reaction Status Date / Time fluoxetine (From Prozac) Allergy Hives Verified 07/22/24 10:59 sertraline Allergy Rash Verified 07/22/24 10:59 doxazosin AdvReac Weakness Verified 07/22/24 10:59 oxycodone AdvReac HICCUPS Verified 07/22/24 10:59 Family History Mother Arthritis Hypertension Father CAD (coronary artery disease) Heart disease Brother Cancer Liver Other Alcoholism Surgical History History of hernia surgery History of esophagogastroduodenoscopy (EGD) History of colonoscopy History of vasectomy History of toe surgery History of radical prostatectomy History of total left knee replacement History of cholecystectomy Social History Smoking Status: Never smoker alcohol intake: former year quit: 2008 substance use type: does not use caffeine: Yes Type: coffee Number of servings: 2 ROS Constitutional Constitutional: Denies fatigue, fever(s), poor appetite, weight gain or weight loss Gastrointestinal Gastrointestinal: Denies belching, bloating, change in bowel habits, change in stool character, chewing difficulty, coffee ground emesis, constipation, cramping, diarrhea, dyspepsia, dysphagia, early satiety, excessive flatus, fecal incontinence, heartburn, hematemesis, hematochezia, hemorrhoids, loose stools, melena, nausea, odynophagia, rectal bleeding, tenesmus, vomiting or weight changes Vital Signs Vital Signs Vital Signs: 07/22/24 11:05 07/22/24 11:05 07/22/24 12:00 Temperature 97.6 F L 97.6 F L Temperature Source Temporal Pulse Rate 49 L 49 L Respiratory Rate 16 16 Respiratory Pattern Normal Blood Pressure 135/91 H 135/91 H Blood Pressure Mean 105 Blood Pressure Source Monitor Blood Pressure Position Semi-Fowlers Blood Pressure Location Left Arm Pulse Ox 97 97 Oxygen Delivery Method Room Air Room Air Weight Weight: 244 lb 7.882 oz Body Mass Index (BMI) 29.7 Physical Exam Const alert, oriented x3, no apparent distress and healthy appearing General Appearance: cooperative GI normal to inspection, nondistended, normoactive bowel sounds, soft to palpation, non-tender and non-distended Percussion: normal to percussion Rectal Exam: deferred Assessment & Plan Assessment/Plan (1) Cirrhosis: (2) Varices of esophagus determined by endoscopy: PLAN: Plan Assessment and Plan Assessment and Plan (1) Alcoholic cirrhosis of liver: Status: Chronic Qualifiers: Ascites presence: without ascites Qualified Code(s): K70.30 - Alcoholic cirrhosis of liver without ascites Plan: Overall assessment seems compensated alcoholic cirrhosis with no recent features of GI bleed/variceal bleed, jaundice, ascites, hepatic hydrothorax or colopathy. Patient has chronic thrombocytopenia. Patient is physically active. Labs from February 2024 were reviewed with the patient. Viral hepatitis, autoimmune markers, HELEN, ceruloplasmin, ferritin and serologies in normal limit. Overall it seems the etiology is alcohol. Patient stated he has been diagnosed cirrhosis about 14 to 15 years ago. Last triple phage abdomen MRI January 2022 reviewed with the patient does not show liver mass but seen by splenomegaly. Prior to that patient also had CT abdomen with IV contrast. Patient is status postcholecystectomy. Micronodular contour of liver suggestive of cirrhosis. Spleen reported enlarged. Portal vein patent. Pancreas no focal cystic or solid mass. Patient is vaccinated with hepatitis A and B. MELD Na score is 9, CTP score is class A, 5 points Liver ultrasound with elastography ordered. EGD to be scheduled. MELD labs ordered. Follow-up in 4 months (2) Dyslipidemia: Status: Chronic Plan: Fasting profile is abnormal. TC 207, LDL 146. HDL 45. Discussed about different statins including atorvastatin and rosuvastatin. Patient wants to try diet and exercise first. Monitor fasting profile in 3 to 4 months Orders: Orders ABD Limited w/ Elastography 1 Month I10 - Essential (primary) hypertension, K21.9 - Gastro-esophageal reflux disease without esophagitis, K70.30 - Alcoholic cirrhosis of liver without ascites CBC W/Diff, Automated 4 Months I10 - Essential (primary) hypertension, K21.9 - Gastro-esophageal reflux disease without esophagitis, K70.30 - Alcoholic cirrhosis of liver without ascites Comprehensive Metabolic Profil 4 Months I10 - Essential (primary) hypertension, K21.9 - Gastro-esophageal reflux disease without esophagitis, K70.30 - Alcoholic cirrhosis of liver without ascites Prothrombin Time w/INR 4 Months I10 - Essential (primary) hypertension, K21.9 - Gastro-esophageal reflux disease without esophagitis, K70.30 - Alcoholic cirrhosis of liver without ascites Lipid Profile 4 Months
--- NOTE | 2024-07-22 12:50 | OP.EGD_ITS ---
Patient Name: Srinath Villatoro Procedure Date: 07/22/2024 12:26 PM Date of : 1960 Age: 63 Procedure: Upper GI endoscopy Indications: Cirrhosis with suspected esophageal varices Providers: Bismark Montoya DO Referring MD: Kevon Mackey Do Medicines: Monitored Anesthesia Care Patient Profile: This is a 63 year old male. Refer to note in patient chart for documentation of history and physical. Patient has symptoms. Complications: No immediate complications. Procedure: Pre-Anesthesia Assessment: - Prior to the procedure, a History and Physical was performed, and patient medications and allergies were reviewed. The patient is competent. The risks and benefits of the procedure and the sedation options and risks were discussed with the patient. All questions were answered and informed consent was obtained. Patient identification and proposed procedure were verified by the physician in the pre-procedure area. Mental Status Examination: alert and oriented. Airway Examination: normal oropharyngeal airway and neck mobility. Respiratory Examination: clear to auscultation. CV Examination: normal. Prophylactic Antibiotics: The patient does not require prophylactic antibiotics. Prior Anticoagulants: The patient has taken no anticoagulant or antiplatelet agents except for NSAID medication. ASA Grade Assessment: III - A patient with severe systemic disease. After reviewing the risks and benefits, the patient was deemed in satisfactory condition to undergo the procedure. The anesthesia plan was to use monitored anesthesia care (MAC). Immediately prior to administration of medications, the patient was re-assessed for adequacy to receive sedatives. The heart rate, respiratory rate, oxygen saturations, blood pressure, adequacy of pulmonary ventilation, and response to care were monitored throughout the procedure. The physical status of the patient was re-assessed after the procedure. After obtaining informed consent, the endoscope was passed under direct vision. Throughout the procedure, the patient's blood pressure, pulse, and oxygen saturations were monitored continuously. The Endoscope was introduced through the mouth, and advanced to the second part of duodenum. The upper GI endoscopy was accomplished without difficulty. The patient tolerated the procedure well. Scope In: 12:35:02 PM Scope Out: 12:43:20 PM Total Procedure Duration Time 0 hours 8 minutes 18 seconds Findings: Grade II varices were found in the middle third of the esophagus and in the lower third of the esophagus. They were 10 mm in largest diameter. Three bands were successfully placed with incomplete eradication of varices. There was no bleeding during and at the end of the procedure. Severe portal hypertensive gastropathy was found in the entire examined stomach. Biopsies were taken with a cold forceps for histology. Verification of patient identification for the specimen was done. Estimated blood loss was minimal. No gross lesions were noted in the first portion of the duodenum. Impression: - Grade II esophageal varices. Incompletely eradicated. Banded. - Portal hypertensive gastropathy. Biopsied. - No gross lesions in the first portion of the duodenum. Recommendation: - Discharge patient to home. - Full liquid diet today. - Continue present medications. - Await pathology results. - Repeat upper endoscopy in 3 months for retreatment. Procedure Code(s): --- Professional --- 20815, Esophagogastroduodenoscopy, flexible, transoral; with band ligation of esophageal/gastric varices 11463, Esophagogastroduodenoscopy, flexible, transoral; with biopsy, single or multiple CPT copyright 2021 [employer]. All rights reserved. The codes documented in this report are preliminary and upon product planner review may be revised to meet current compliance requirements. Bismark Montoya DO 07/22/2024 12:50:14 PM This report has been signed electronically. Number of Addenda: 0 Note Initiated On: 07/22/2024 12:26 PM
--- NOTE | 2024-07-22 12:50 | OP.CCLET_ITS ---
07/22/2024 Kevon Mackey Do Re : Upper GI endoscopy procedure for Srinath Irving Dear Dr. Mackey This procedure was performed on Monday, July 22, 2024. My impressions and recommendations are as follows: Impressions : - Grade II esophageal varices. Incompletely eradicated. Banded. - Portal hypertensive gastropathy. Biopsied. - No gross lesions in the first portion of the duodenum. Recommendations : - Discharge patient to home. - Full liquid diet today. - Continue present medications. - Await pathology results. - Repeat upper endoscopy in 3 months for retreatment. My findings are described in the full procedure note, which is enclosed. If I can be of further assistance, please feel free to contact me at . Sincerely, Bismark Friend, 07/22/2024 12:50:14 PM This report has been signed electronically.
--- NOTE | 2024-07-22 12:53 | PCM.POST.ANE ---
Anesthesia: Postop Eval I Current Vital Signs Temperature: 97.1 F Pulse Rate: 70 Blood Pressure: 142/99 Respiratory Rate: 16 Pulse Ox: 96 Oxygen Delivery Method: Room Air Assessment Airway patent: Yes Spontaneous unlabored respirations: Yes Mental status: Asleep nausea: No Vomiting: No Anesthesia Complication: No Fluid Hydration Crystalloid volume administer (ml): 30 Total IV fluid infused: 30 Progress Note Anesthesia document: Postop Eval 1 completed: Yes
--- NOTE | 2024-07-22 14:09 | PCM.POSTANE2 ---
Anesthesia Postop Eval I Sum Postop Eval Completion status Anesthesia document: Postop Eval 1 completed: Yes Anesthesia Postop Eval I Summary Anesthesia Postop Eval I Summary: Anesthesia Postop Eval I: Assessment Summary Airway patent Yes 07/22/24 12:54 [email or web address] Spontaneous unlabored Yes 07/22/24 12:54 [email or web address] respirations Mental status Asleep 07/22/24 12:54 [email or web address] nausea No 07/22/24 12:54 [email or web address] Vomiting No 07/22/24 12:54 [email or web address] Anesthesia Postop Eval I: Fluid Summary Crystalloid volume administer 30 07/22/24 12:54 [email or web address] (ml) Colloids volume administered ( ml) Blood Product volume administered (ml) Total IV fluid infused 30 07/22/24 12:54 [email or web address] Anesthesia Postop Eval I: Summary Notes Anesthesia Complication No 07/22/24 12:54 [email or web address] Anesthesia Complication Comment: Post-operative progress note Anesthesia: Postop Eval II Evaluation Mental status: Awake and Calm Pain Level: 0 nausea: No Vomiting: No Complications Anesthesia Complication: No
== END 2024-07-22 13:26 | disposition home or self-care (01) ==
LOC: EN 10:36 → AC 10:39
PROVIDERS: Visit Provider Internal Medicine Gastroenterology
PROC: 0DJ08ZZ Inspection of Upper Intestinal Tract, Via Natural or Artificial Opening Endoscopic (ICD-10-PCS; CPT 43235; principal; 2024-07-22 11:55)
DX: I85.00 Esophageal varices without bleeding (principal); K76.6 Portal hypertension; K70.30 Alcoholic cirrhosis of liver without ascites; K21.9 Gastro-esophageal reflux disease without esophagitis; K29.70 Gastritis, unspecified, without bleeding; G43.709 Chronic migraine without aura, not intractable, without status migrainosus; E78.5 Hyperlipidemia, unspecified; I10 Essential (primary) hypertension; Z80.0 Family history of malignant neoplasm of digestive organs; Z79.899 Other long term (current) drug therapy
CPT/HCPCS: 43244; 43239; 88305; 88342; A4216; J2405

== ENCOUNTER → 2024-08-21 | Outpatient (CLI) | payer OTHER, SELFPAY ==
--- NOTE | 2024-08-21 13:09 | ECHOD_ITS ---
Reason For Study Reason For Study: HYPERTENSION Procedure This was a 2D Doppler, Color Flow transthoracic echocardiogram. Exam performed in department. Left Ventricle Normal LV size. Mild concentric left ventricular hypertrophy. Left ventricular systolic function is normal. The left ventricular ejection fraction is 60 %. No regional wall motion abnormalities noted. Right Ventricle Normal RV size. Normal systolic function. Atria Normal left atrium. Normal right atrium. Mitral Valve Normal mitral valve. Tricuspid Valve Normal tricuspid valve. Mild (1+) tricuspid valve insufficiency. Pulmonary artery systolic pressure is 27 mmHg. Aortic Valve Trisinus/trileaflet aortic valve. Pulmonic Valve Normal pulmonic valve. Great Vessels Normal aortic root. The pulmonary artery is normal size. Inferior vena cava collapse with respiration. Pericardium/Pleural No pericardial effusion. MMode/2D Measurements & Calculations LVIDd: 5.7 cm IVSd: 1.2 cm Ao root diam: 4.0 cm LVIDs: 3.3 cm LVPWd: 1.2 cm FS: 41.1 % LAV(MOD-bp): 103.4 ml LVAd ap4: 39.7 cm2 LVAd ap2: 26.2 cm2 LAV(MOD-bp) Indexed: 42.8 ml/m2 LVLd ap4: 9.2 cm LVLd ap2: 8.3 cm LAV(MOD-sp2): 78.8 ml EDV(MOD-sp4): 137.5 ml EDV(MOD-sp2): 70.6 ml LAV(MOD-sp4): 123.3 ml EDV(sp4-el): 144.8 ml EDV(sp2-el): 70.4 ml LVAs ap4: 21.4 cm2 LVAs ap2: 15.2 cm2 LVLs ap4: 8.0 cm LVLs ap2: 7.3 cm ESV(MOD-sp4): 47.5 ml ESV(MOD-sp2): 27.5 ml ESV(sp4-el): 48.6 ml ESV(sp2-el): 26.8 ml EF(MOD-sp4): 65.4 % EF(MOD-sp2): 61.1 % EF(sp4-el): 66.5 % SV(MOD-sp4): 89.9 ml SV(MOD-sp2): 43.1 ml SV(sp4-el): 96.2 ml SI(MOD-sp4): 37.2 ml/m2 SI(MOD-sp2): 17.8 ml/m2 LA A4 area: 31.0 cm2 LA dimension(2D): 5.2 cm RA A4 area: 22.3 cm2 TAPSE: 2.9 cm Time Measurements MV dec time: 0.22 sec Doppler Measurements & Calculations MV E max dave: 77.8 cm/sec Lat Peak E' Dave: 15.2 cm/sec Med Peak E' Dave: 10.0 cm/sec MV A max dave: 38.4 cm/sec E/E' lat: 5.1 E/E' med: 7.8 MV E/A: 2.0 MV V2 max: 84.9 cm/sec MV P1/2t max dave: 84.2 cm/sec Ao V2 max: 103.8 cm/sec MV max P.9 mmHg MV P1/2t: 62.3 msec Ao max P.3 mmHg MV V2 mean: 38.3 cm/sec Ao V2 mean: 69.2 cm/sec MV mean P.71 mmHg MV dec slope: 395.5 cm/sec2 Ao mean P.1 mmHg MV V2 VTI: 24.2 cm MVA(P1/2t): 3.5 cm2 Ao V2 VTI: 24.4 cm AV (velocity ratio): 0.80 LV V1 max: 86.7 cm/sec PA V2 max: 93.0 cm/sec TR max dave: 248.5 cm/sec LV V1 max P.0 mmHg TR max P.7 mmHg LV V1 mean P.5 mmHg LV V1 mean: 58.7 cm/sec LV V1 VTI: 19.6 cm ECHO/Echo Complete Interpretation Summary Normal LV size. Left ventricular systolic function is normal. The left ventricular ejection fraction is 60 %. Mild concentric left ventricular hypertrophy. Pulmonary artery systolic pressure is 27 mmHg. Ordering Physician: Jonathan Saleem Referring Physician: Kevon Mackey Performed By: Jessica Garcia, LÁZARO, RVT
== END | disposition home or self-care (01) ==
LOC: CVS 13:08
PROVIDERS: Referring Provider Internal Medicine Cardiovascular Disease; Visit Provider Internal Medicine Cardiovascular Disease
DX: I10 Essential (primary) hypertension (principal)
CPT/HCPCS: 93306

== ENCOUNTER → 2024-09-01 | Outpatient (CLI) | payer OTHER, SELFPAY ==
[2024-09-01 16:56] LABS: Absolute Lymphocyte Count 1.47 X10^3/uL (0.83-4.51); Absolute Neutrophil Count 3.1 X10^3/uL (2.0-7.7); Basophil# 0.03 X10^3/uL; Basophil% 0.6 % (0-1); Eosinophil# 0.08 X10^3/uL; Eosinophils% 1.5 % (0-5); Hematocrit 45.6 % (40-54); Hemoglobin 15.7 g/dL (13.0-16.5); Lymphocyte # 1.47 X10^3/ul (0.83-4.51); Lymphocyte % 28.4 % (19-41); Mean Corp Hgb Conc 34.4 g/dL (32-36); Mean Corpuscular Hgb 29.3 pg (27.0-32.0); Mean Corpuscular Volume 85.1 fL (80-94); Mean Platelet Vol. 10.6 fl (6.2-12.0); Monocyte# 0.53 X10^3/uL; Monocyte% 10.3 % (0-10); NRBC Flagged by Analyzer 0 % (0-5); Neutrophil # 3.05 X10^3/uL (2.7-7.7); Platelet Count 112 K/mm3 (150-450); RBC Distribution Width CV 13.5 % (11.6-14.6); RBC Distribution Width SD 42.1 fl (35.1-43.9); Red Blood Count 5.36 M/mm3 (4.6-6.2); White Blood Count 5.2 K/mm3 (4.4-11.0)
[2024-09-01 17:02] LABS: International Normalized Ratio 1.1; Prothrombin Time (Protime)PT. 14.7 SECONDS (11.7-14.9)
[2024-09-01 17:28] LABS: ALB/GLOB Ratio 1.7 RATIO (0.9-2.4); AST(SGOT) 32 U/L (<=37); Alanine Aminotransfer ALT/SGPT 32 U/L (<=46); Albumin, Serum 4.7 g/dL (3.4-4.8); Alkaline Phosphatase 71 U/L (40-129); Anion Gap 11 (5-15); BUN 26 mg/dL (4-19); BUN/Creat Ratio 27.7 RATIO (10-20); Calcium,Total 9.5 mg/dL (7.6-11.0); Carbon Dioxide 23.5 mmol/L (21.0-32.0); Chloride 105 mmol/L (98-108); Cholesterol 182 mg/dL (<=200); Creatinine, Serum 0.94 mg/dL (0.70-1.20); EST Glomerular Filtration Rate 91 (>60); Globulin 2.8 g/dL (2.2-4.2); Glucose 97 mg/dL (70-99); High Density Lipoprotein 48 mg/dL; Low Density Lipoprotein Calc. 119 mg/dL; Protein, Total 7.4 g/dL (5.9-8.4); Sodium Level 139 mmol/L (133-145); Total Bilirubin 0.89 mg/dL (0.00-1.30); Triglycerides 74 mg/dL; Very Low Density Lipoprotein 15 mg/dL (5-40); cholesterol:hdl ratio screen 3.81
== END | disposition home or self-care (01) ==
LOC: LAB 16:01
PROVIDERS: Referring Provider Internal Medicine; Visit Provider Internal Medicine
DX: E78.5 Hyperlipidemia, unspecified (principal); K70.30 Alcoholic cirrhosis of liver without ascites; I10 Essential (primary) hypertension; K21.9 Gastro-esophageal reflux disease without esophagitis
CPT/HCPCS: 36415; 80053; 80061; 85025; 85610

== ENCOUNTER → 2024-10-03 | Outpatient (CLI) | payer OTHER, SELFPAY ==
[2024-10-03 11:40] LABS: Anion Gap 11 (5-15); BUN 25 mg/dL (4-19); BUN/Creat Ratio 25.5 RATIO (10-20); Calcium,Total 9.3 mg/dL (7.6-11.0); Carbon Dioxide 23.3 mmol/L (21.0-32.0); Chloride 104 mmol/L (98-108); Creatinine, Serum 0.99 mg/dL (0.70-1.20); EST Glomerular Filtration Rate 85 (>60); Glucose 126 mg/dL (70-99); Potassium 3.6 mmol/L (3.3-5.1); Sodium Level 139 mmol/L (133-145)
[2024-10-03 12:32] LABS: AST(SGOT) 30 U/L (<=37); Alanine Aminotransfer ALT/SGPT 31 U/L (<=46); Albumin, Serum 4.3 g/dL (3.4-4.8); Alkaline Phosphatase 68 U/L (40-129); Bilirubin, Direct 0.29 mg/dL (0.00-0.30); Cholesterol 156 mg/dL (<=200); Globulin 2.5 g/dL (2.2-4.2); High Density Lipoprotein 41 mg/dL; Low Density Lipoprotein Calc. 98 mg/dL; Protein, Total 6.8 g/dL (5.9-8.4); Triglycerides 81 mg/dL; Very Low Density Lipoprotein 16 mg/dL (5-40); cholesterol:hdl ratio screen 3.77
== END | disposition home or self-care (01) ==
LOC: LAB 10:00
PROVIDERS: Physician Assistant Medical; Referring Provider Nurse Practitioner Gerontology; Visit Provider Nurse Practitioner Gerontology
DX: I25.10 Atherosclerotic heart disease of native coronary artery without angina pectoris (principal); I10 Essential (primary) hypertension; R00.2 Palpitations
CPT/HCPCS: 36415; 80048; 80061; 80076

== ENCOUNTER 2024-11-17 05:51 | Day surgery (SDC) | payer OTHER, SELFPAY ==
--- NOTE | 2024-11-13 15:04 | PAT.ANE_ITS ---
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 When Was Last Pacemaker Check QUESTION #4 FULL TEXT: You/Your Family Experience fever (hyperthermia) with Anesthesia Last Oral Intake Last Oral intake: Last Oral Intake NPO since Meds taken in AM with sips of water? 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 Female Yes 11/13/24 14:50 HX of Motion Sickness No 11/13/24 14:50 HX of N/V After Surgery No 11/13/24 14:50 Non-Smoker Yes 11/13/24 14:50 Duration of Surgery greater No 11/13/24 14:50 than 60 minutes Number of Risk Factors 2 11/13/24 14:50 PONV Score Moderate Risk 11/13/24 14:50 Height & Weight Height & Weight: Anesthesia: Height & Weight Height 6 ft 4 in 10/16/24 12:11 Respiratory Assessment Respiratory Assessment - sales store checker: Respiratory Tract Infection Hx - sales store checker Hx Respiratory Tract Infection No 11/13/24 14:50 STOP Sleep Apnea STOP Sleep Apnea - sales store checker: STOP Sleep Apnea - sales store checker Hx Hypertension Yes: CONTROLLED WITH MEDS 11/13/24 14:50 Hx Sleep Apnea No 11/13/24 14:50 CPAP No 07/22/24 12:48 BIPAP Do you snore loudly (louder No 11/13/24 14:50 than talking or can be heard Do you often feel tired/ No 11/13/24 14:50 fatigued/ sleepy during daytime? Has anyone observed you stop No 11/13/24 14:50 breathing during sleep? STOP Results Negative 11/13/24 14:50 QUESTION #5 FULL TEXT : Do you snore loudly (louder than talking or can be heard through closed doors)? 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 Specify any problems Hx of Preganancy in last 3 N/A 11/13/24 14:50 Months Nurse Filling Out Transfusion [email or web address] 11/13/24 14:50 & Questions: Date: 11/13/24 11/13/24 14:50 Time: 14:51 11/13/24 14:50 Patient unable to answer at this time (ie. confused, unrespo /Reproduction History /Reproductive History - sales store checker: /Reproductive Hx- sales store checker Hx Now No 11/13/24 14:50 Gestational Age (in weeks): EDC: Hx Hx Para Hx Section SAB No 11/13/24 14:50 PFSH Medical History (Updated 11/13/24 @ 14:54 by Gerardo Montes) History of hiatal hernia History of echocardiogram Cardiology follow-up encounter CAD (coronary artery disease) Wears hearing aid Wears glasses Migraine headache Gastric reflux Non-smoker Palpitations Low back pain Dyslipidemia Urinary incontinence, functional Hypertension Erectile dysfunction Chronic migraine Prostate cancer Thrombocytopenia Alcohol abuse Arthritis Hiatal hernia GERD (gastroesophageal reflux disease) Alcoholic cirrhosis of liver Restless leg syndrome Home Medications ?Medication ?Instructions ?Recorded ?Last Taken ?Type multivitamin (Multiple Vitamins 1 ea PO DAILY 09/29/16 Unknown History tablet) rimegepant 75 mg disintegrating 75 mg PO ONCE PRN migr morelia headache 10/26/21 Unknown History tablet (Nurtec ODT) sumatriptan succinate 100 mg tablet 100 mg PO ONCE PRN migraine 10/26/21 Unknown History headache cholecalciferol (vitamin D3) 125 125 mcg PO QDAY 02/28 Unknown History mcg (5,000 unit) tablet omeprazole 20 mg capsule,delayed 20 mg PO QDAY 4 07/22/24 06:02 History release vitamin B complex 1 cap PO QDAY 02/29/24 Unkno wn History tadalafil 20 mg tablet 20 mg PO DAILY PRN sexual ac tivity 07/10/24 Unknown History carvedilol 25 mg tablet 25 mg PO BID #180 tabs 07/1807/22/24 06:01 Rx coenzyme Q10 400 mg capsule 400 mg PO QDAY 07/18/24 Un known History lactobacillus combination no.4 3 3,000 mmu cells PO QD AY 07/18/24 Unknown History billion cell capsule (Probiotic) ezetimibe 10 mg tablet (Zetia) 10 mg PO QDAY #90 tabs 10/16/24 Unknown Rx hydrochlorothiazide 25 mg tablet 25 mg PO QDAY #90 tab s 10/16/24 Unknown Rx valsartan 320 mg tablet 320 mg PO QDAY #90 tabs 10/02 10/26 Unknown Rx Allergy/AdvReac Type Severity Reaction Status Date / Time fluoxetine (From Prozac) Allergy Hives Verified 11/13/24 14:48 sertraline Allergy Rash Verified 11/13/24 14:48 amlodipine AdvReac Severe Swelling Verified 11/13/24 14:48 doxazosin AdvReac Weakness Verified 11/13/24 14:48 oxycodone AdvReac HICCUPS Verified 10/16/24 12:13 Family History Mother Arthritis Hypertension Father CAD (coronary artery disease) Heart disease Brother Cancer Liver Other Alcoholism Surgical History (Updated 11/13/24 @ 14:54 by Gerardo Montes) History of hernia surgery History of esophagogastroduodenoscopy (EGD) History of colonoscopy History of vasectomy History of toe surgery History of radical prostatectomy History of total left knee replacement History of cholecystectomy Social History Smoking Status: Never smoker alcohol intake: former year quit: 2008 substance use type: does not use caffeine: Yes Type: coffee Number of servings: 2 Audit: Pertinent Findings Pertinent Findings EKG Perinent findings: 07/18/2024. Marked sinus bradycardia. Echo (EF%) pertinent findings: 08/21/2024. EF 60% mild LVH. Pulmonary artery pressure 27 mmHg. Consult pertinent findings: Cardiology 10/16/2024. Chronic hypertension. Slightly elevated today. Increase medication valsartan to 320 mg a day. Recommendation Anesthesia Recommendation Anesthesia recommendation: OPTIMIZED for anesthesia
[2024-11-17] VITALS (9 sets, daily range): BP systolic 107–154; BP diastolic 78–91; PULSE 52–61; RESP 14–16; TEMP 36.3–36.6; O2SAT 95–99; BMI 29.2
--- OUTSIDE RECORDS SUMMARY | 2024-11-17 05:54 | XMS RPT_ITS | CCD ---
Author Organization [facility] Inform ion [facility] Care Team Providers Care Engine Boss Name Role Phone DEBRA MADISON Admitting UnavailDEBRA Murcia Attending Unavailabl e MARK SMITH DO Primary Care Physician [phone] Mark Smith DO Primary Care Provider [phone] Dr. Mark Smith Primary Care Provider Dr. Mark Smith Referring Provider Michele NGUYEN, CRISTOPHER Huff Attending Provider KEVON MACKEY DO Primary Care Physician Mark Smith DO Primary Care Provider [phone] Kevon Mackey DO Primary Care Provider Mark Smith DO Primary Care Provider [phone] Dr. Kevon Mackey Primary Care Provider Dr. Jonathan Saleem Attending Provider [phone] Sarkis Mcdonald Referring Provider [phone] ANA VILLA MD Attending Unavailable KEVON MACKEY DO Primary Care Unavailable KEVON MACKEY DO Attending Unavailable KEVON MACKEY DO Primary Care Unavailable ANA VILLA MD Attending Unavailable KEVON MACKEY DO Primary Care Unavailable LENARD ASENCIO MD Attending Unavaila KEVON Staples DO Primary Care Unavailable LENARD ASENCIO MD Attending Unavaila KEVON Staples DO Primary Care Unavailable LENARD ASENCIO MD Attending Unavaila KEVON Staples DO Primary Care Unavailable KEVON MACKEY Primary Care Unavailable GRATER, MATEO Referring Unavailable GRATER, MATEO Attending Unavailable KEVON MACKEY Primary Care Unavailable GRATER, MATEO Attending Unavailable JESE, MATEO Referring Unavailable KEVON MACKEY Primary Care Unavailable KEVON MACKEY Primary Care Unavailable Kevon Mackey DO Primary Care Provider [phone] Mark Smith DO Primary Care Provider [phone] KEVON MACKEY DO Primary Care Unavailable DAISY BLAKE, ANA Zamudio Attending Unavailable DAISY BLAKE, ANA Zamudio Attending Unavailable NARENDRA REES, KEVON E Primary Care Unavailable NARENDRA REES, KEVON E Primary Care Unavailable DAISY BLAKE, ANA Zamudio Attending Unavailable Narendra REES, Dr. Lund Primary Care Provider [phone] Dr. Kevon Mackey DO Referring Provider [phone] Franki BLAKE, Dr. Spaulding Attending Provider Dr. Jasson Doan MD Referring Provider Dr. Jonathan Saleem MD Attending Provider Lindsay REES, Dr. Sofia Attending Provider iLndsay REES, Dr. Sofia Other Provider Harper BLAKE, Dr. Castillo Referring Provider Referred, Self Attending Provider Unavailable Dr. Kevon Mackey DO Primary Care Provider [phone] Dr. Jasson Doan MD Attending Provider Dr. Kevon Mackey DO Referring Provider [phone] Adalgisa Erickson Attending Provider Adalgisa Erickson Referring Provider Dr. Kevon Mackey DO Primary Care Provider [phone] Dr. Jasson Doan MD Attending Provider Franki BLAKE, Dr. Spaulding Referring Provider Kevon Mackey Primary Care Unavailable Harper, Jonathan Referring Unavailable Harper, Jonathan Attending Unavailable Referred, Self Attending Unavailable Kevon Mackey Primary Care Unavailable Harper, [place] Referring Unavailable Kevon Mackey Primary Care Unavailable Harper, Jonathan Attending Unavailable Friend, Bismark Attending Unavailable Friend, Bismark Consulting Unavailable Mackey, Kevon Primary Care Unavailable Mackey, Kevon Referring Unavailable Mackey, Kevon Primary Care Unavailable Franki, Jasson Attending Unavailable Mackey, Kevon Referring Unavailable Mackey, Kevon Primary Care Unavailable Harper, [place] Attending Unavailable Mackey, Kevon Referring Unavailable Mackey, Kevon Primary Care Unavailable Mackey, Kevon Referring Unavailable Franki, Jasson Attending Unavailable Mackey, Kevon Primary Care Unavailable Mackey, Kevon Referring Unavailable Harper, [place] Attending Unavailable Mackey, Kevon Primary Care Unavailable Mackey, Kevon Referring Unavailable Franki, Jasson Attending Unavailable Mackey, Kevon Primary Care Unavailable Franki, Jasson Attending Unavailable Franki, Jasson Referring Unavailable Mackey, Kevon Primary Care Unavailable Harper, [place] Referring Unavailable Harper, Jonathan Attending Unavailable Mackey, Kevon Primary Care Unavailable Franki, Jasson Attending Unavailable Franki, Jasson Referring Unavailable Mackey, Kevon Primary Care Unavailable Lee ANALYTICS DIRECTOR, Adalgisa Referring Unavailable Lee ANALYTICS DIRECTOR, Adalgisa Attending Unavailable Mackey, Kevon Primary Care Unavailable Franki, Jasson Attending Unavailable Franki, Jasson Referring Unavailable Friend, Bismark Attending Unavailable Mackey, Kevon Primary Care Unavailable Mackey, Kevon Referring Unavailable Friend, Bismark Attending Unavailable Mackey, Kevon Referring Unavailable Mackey, Kevon Primary Care Unavailable Allergies Allergy Classification Reported Allergen(s) Allergy Type Date of Onset Reaction(s) Facility (20 sources) Acetaminophen; Translations: [ACETAMINOPHEN] Drug Allergy 6 Other: See Comments [facility] Repository (20 sources) FLUoxetine; Translations: [FLUOXETINE HCL] Drug Allergy 0 Rash [facility] Repository (20 sources) oxyCODONE; Translations: [OXYCODONE] Drug Allergy 6 Cough [facility] Repository (20 sources) FLUoxetine; Translations: [fluoxetine] Drug Allergy 8 [facility], [facility] (20 sources) Sertraline; Translations: [sertraline] Drug Allergy 3 [facility] (20 sources) Doxazosin; Translations: [doxazosin] Drug Allergy 3 Other: See Comments [facility] (1 source) amLODIPine Drug Allergy 5 Swelling [facility] (1 source) amLODIPine Drug Allergy 5 [facility] Repository (1 source) Doxazosin Drug Allergy 5 [facility] Repository (1 source) FLUoxetine Drug Allergy 5 [facility] Repository (1 source) Sertraline Drug Allergy 5 [facility] Repository Medications Current Medications Medication Drug Class(es) Dates Sig (Normalized) Sig (Original) Tylenol (2 sources) Start: 01-29-2024 Tylenol Oral, 0 Refill(s) Start Date: 01/29/24 Status: Ordered albuterol MDI (90 mcg/inh) CFC free inhalation aerosol (2 sources) Start: 08-28-2022 take 1 puff(s) by inhalation every four hours albuterol MDI (90 mcg/inh) CFC free inhalation aerosol 1 puff(s), Inhalation, q4h, # 18 gram(s), 0 Refill(s), Pharmacy: [facility], [facility], , 08/28/22 15:00:00 EDT, Height Start Date: 08/28/22 Status: Ordered amoxicillin 500 mg oral capsule (2 sources) Penicillin-class Antibacterial Start: 03-21-2021 amoxicillin 500 mg oral capsule 0 Refill(s) Start Date: 03/21/21 Status: Ordered ascorbic acid 500 mg oral tablet (19 sources) Vitamin C Start: 11-23-2022 End: 12-07-2022 take 1 tablet by mouth twice daily at mealtime ascorbic acid, vitamin C, (VITAMIN C) 500 mg tablet Take 1 tablet by mouth twice daily with meals for 27 doses. 27 tablet 11/23/2022 Active Start: 02-09-2022 Vitamin C qDay , 0 Refill(s) Start Date: 02/09/22 Status: Ordered Comment on above: Take 1 tablet by jenniefr th twice daily with meals for 27 doses. aspirin 81 mg delayed release oral tablet (13 sources) Platelet Aggregation Inhibitor, Nonsteroidal Anti-inflammatory Drug Start: 11-23-2022 End: 12-21-2022 take 1 tablet by mouth twice daily aspirin, enteric coated (ASPIRIN, ENTERIC COATED) 81 mg EC tablet Take 1 tablet by mouth twice daily for 28 days. 56 tablet 11/23/2022 Active Comment on above: Take 1 tablet by jennifer th twice daily for 28 days. B-Complex SR (11 sources) Start: 01-01-2014 take 1 tablet by mouth once daily B-Complex SR Dose = 1 tab(s), Oral, qDay Start Date: 01/01/14 Status: Ordered B-Complex With Vitamin C (4 sources) Start: 09-29-2016 B-Complex With Vitamin C Active 1 EACH PO DAILY September 29, 2016 3:09pm Start: 09-29-2016 End: 10-26-2021 B-Complex With Vitamin C Dis continued 1 EACH PO DAILY September 28, 2016 11:00pm October 26, 2021 6:43am Start: 09-29-2016 End: 10-26-2021 B-Complex With Vitamin C Dis continued 1 EACH PO DAILY September 29, 2016 12:00am October 26, 2021 7:43am carvedilol 25 mg oral tablet (15 sources) alpha-Adrenergic Chaitanya, beta-Adrenergic Chaitanya Start: 07-18-2024 take 1 tablet by mouth twice daily at mealtime Carvedilol 25 mg tablet Active 25 mg PO TWICE A DAY 180 July 18, 2024 1:00am must administer with a meal/food Start: 03-03-2024 carvedilol 6.2 5 mg oral tablet Dose : 6.25 mg = 1 tab(s), Oral, BID, # 180 tab(s), 3 Refill(s), Pharmacy: [facility]/pharmacy #[id number], 193, cm, 03/03/24 11:13:00 EDT, Height, kg, 03/03/24 11:13:00 EDT, Dosing Weight Start Date: 03/03/24 Status: Ordered Start: 02-29-2024 End: 07-18-2024 take 2 tablets by mouth twice daily Carvedilol 6.25 mg tablet Discontinued 12.5 mg PO TWICE A DAY February 29, 2024 12:00am July 18, 2024 3:36pm Start: 02-26-2023 take 1 tablet by jennifer th once daily, then take 1 tablet by mouth twice daily carvedilol 6.25 mg oral tablet Daily, TAKE ONE TABLET BY MOUTH DAILY FOR 7 DAYS THEN TAKE ONE TABLET TWICE DAILY Start Date: 02/26/23 Status: Ordered Start: 02-24-2022 carvedilol 3.1 25 mg oral tablet Dose : 3.125 mg = 1 tab(s), Oral, BID, pt to take one tab at HS for 7 days then one tab BID., 0 Refill(s) Start Date: 02/24/22 Status: Ordered cholecalciferol 0.125 mg oral tablet (4 sources) Vitamin D Start: 02-29-2024 take 1 tablet by mouth once daily Cholecalciferol (Vitamin D3) 125 mcg (5,000 unit) tablet Active 125 ug PO daily February 29, 2024 12:00am cholecalciferol, vitamin D3, (VITAMIN D3 ORAL) (16 sources) cholecalciferol, vitamin D3, (VITAMIN D3 ORAL) Take by mouth. Active cholecalciferol, vitamin D3, (VITAMIN D3 ORAL) Take by mouth. 0 Active Comment on above: Take by mouth. Co-Q10 (20 sources) Start: 9 take 1 dose by mouth once daily Co-Q10 Dose : 400 mg =, Oral, Daily Start Date: 12/10/18 Status: Ordered diclofenac sodium 50 mg delayed release oral tablet (1 source) Nonsteroidal Anti-inflammatory Drug Start: 2 End: 2 take 1 tablet by mouth twice daily diclofenac, EC, (VOLTAREN) 50 mg EC tablet Indications: Acute pain of left knee , Knee swelling , S/P total knee arthroplasty, left Take 1 tablet by mouth twice daily. 60 tablet 0 11/01/2021 12/01/2021 Active Comment on above: Take 1 tablet by [facility] twice daily. doxazosin 8 mg oral tablet (20 sources) alpha-Adrenergic Chaitanya Start: 2 doxazosin 8 mg oral tablet Dose : 8 mg = 1 tab(s), Oral, qDay, TAKE ONE TABLET BY MOUTH AT BEDTIME, # 90 tab(s), 3 Refill(s), Pharmacy: [facility], BPH associated with nocturia Hypertension, 195, cm, 09/30/21 8:24:00 EDT, Height, kg, 09/30/21 8:24:00 EDT, D... Start Date: 09/30/21 Status: Ordered Start: 05-17-2021 doxazosin 8 mg oral tablet Dose : 8 mg = 1 tab(s), Oral, qDay, TAKE ONE TABLET BY MOUTH AT BEDTIME, # 90 tab(s), 1 Refill(s), Pharmacy: [facility], BPH associated with nocturia Hypertension, 193, cm, 05/09/21 7:55:00 EST, Height, kg, 05/09/21 7:55:00 EST, D... Start Date: 05/17/21 Status: Ordered Start: 05-18-2020 doxazosin 8 mg oral tablet Dose : 8 mg = 1 tab(s), Oral, qDay, TAKE ONE TABLET BY MOUTH AT BEDTIME, # 90 tab(s), 3 Refill(s), Pharmacy: [facility], BPH associated with nocturia Hypertension, 196.5, cm, 05/18/20 8:09:00 EST, Height, kg, 05/18/20 8:09:00 EST,... Start Date: 05/18/20 Status: Ordered Start: 09-29-2016 End: 02-29-2024 take 2 tablets by mouth once daily Doxazosin 4 MG tablet Discontinued 8 mg PO DAILY September 29, 2016 12:00am February 29, 2024 8:28am Start: 09-29-2016 take 8 mg by mouth once daily Doxazosin Active 8 MG PO DAILY September 28, 2016 11:00pm Start: 03-14-2010 End: 11-06-2022 take 1 tablet by mouth once daily at bedtime doxazosin (CARDURA) 4 mg ORAL Tab Indications: Pancytopenia Take one(1) tablet daily at bedtime 03/14/2010 11/06/2022 Discontinued Comment on above: Take one(1) tablet d aily at bedtime Emgality Prefilled Pen 120 mg/mL subcutaneous solution (10 sources) Start: 11-16-19 inject 1 mL by subcutaneous injection every month Emgality Prefilled Pen 120 mg/mL subcutaneous solution Inject 1 mL every month by subcutaneous route. Start Date: 11/15/20 Status: Ordered ezetimibe 10 mg oral tablet (5 sources) Dietary Cholesterol Absorption Inhibitor Start: 08-23-19 End: 10-17-19 take 1 tablet by mouth once daily Ezetimibe (Zetia) 10 mg tablet Active 10 mg PO daily October 16, 2024 12:16pm Fish Oil-Dha-Epa (4 sources) Start: 09-30-19 Fish Oil-Dha-Epa Active 1 EACH PO TWICE A DAY September 29, 2016 3:09pm Start: 09-29-2016 End: 10-26-2021 Fish Oil-Dha-Epa Discontinue d 1 EACH PO TWICE A DAY September 28, 2016 11:00pm October 26, 2021 6:44am Start: 09-29-2016 End: 10-26-2021 Fish Oil-Dha-Epa Discontinue d 1 EACH PO TWICE A DAY September 29, 2016 12:00am October 26, 2021 7:44am Fish Oils (11 sources) Start: 01-01-2014 Fish Oil 1200 mg oral capsule Dose : 1,200 mg = 1 cap(s), Oral, Daily Start Date: 01/01/14 Status: Ordered 1 ml galcanezumab-gnlm 120 mg/ml auto-injector (2 sources) Start: 11-15-2020 inject 1 mL by subcutaneous injection every month Emgality Prefilled Pen 120 mg/mL subcutaneous solution Inject 1 mL every month by subcutaneous route. Start Date: 11/15/20 Status: Ordered hydroCHLOROthiazide 25 mg oral tablet (20 sources) Thiazide Diuretic Start: 09-26-2024 End: 10-16-2024 take 1 tablet by mouth once daily Hydrochlorothiazide 25 mg tablet Active 25 mg PO daily October 16, 2024 12:16pm Start: 09-29-2016 End: 11-06-2022 take 1 tablet by mouth once daily Hydrochlorothiazide 12.5 MG tablet Discontinued 12.5 mg PO DAILY September 29, 2016 12:00am October 26, 2021 7:44am Comment on above: Take 12.5 mg by mout h once daily. Lactobacillus Combination No.4 (Probiotic) 3 billion cell capsule (4 sources) Start: 5 take 3 capsules by mouth once daily Lactobacillus Combination No.4 (Probiotic) 3 billion cell capsule Active 3000 NMA PO daily July 18, 2024 1:00am administer with a meal Magnesium complex 400 mg (3 sources) Start: Magnesium complex 400 mg 0 Refill(s), 113 Start Date: 12/24/20 Status: Ordered magnesium oxide 400 mg oral tablet (20 sources) Start: magnesium oxide 400 mg oral tablet Dose : 400 mg = 1 tab(s), Oral, qHS Start Date: 04/21/21 Status: Ordered Milk Thistle Seed Extract (20 sources) Start: 7 take 250 mg by mouth twice daily Milk Thistle Seed Extract Active 250 MG PO TWICE A DAY September 29, 2016 3:09pm Start: 09-29-2016 End: 10-26-2021 Milk Thistle Seed Extract 20 0 MG capsule Discontinued 250 mg PO TWICE A DAY September 29, 2016 12:00am October 26, 2021 7:45am Start: 09-29-2016 End: 10-26-2021 take 250 mg by mouth twice daily Milk Thistle Seed Extract Discontinued 250 MG PO TWICE A DAY September 28, 2016 11:00pm October 26, 2021 6:45am Start: 09-29-2016 End: 10-26-2021 take 250 mg by mouth twice daily Milk Thistle Seed Extract Discontinued 250 MG PO TWICE A DAY September 29, 2016 12:00am October 26, 2021 7:45am End: 11-06-2022 take 250 mg by mouth once daily MILK THISTLE ORAL Indications: Alcoholic cirrhosis of liver without ascites (HCC) Take 250 mg by mouth once daily. 11/06/2022 Discontinued End: 11-06-2022 take 250 mg by mouth once daily MILK THISTLE ORAL Indications: Alcoholic cirrhosis of liver without ascites (HCC) Take 250 mg by mouth once daily. 0 11/06/2022 Discontinued take 250 mg by mouth once daily MILK THISTLE ORAL Indications: Alcoholic cirrhosis of liver without ascites (HCC) Take 250 mg by mouth once daily. 0 Active Comment on above: Take 250 mg by mouth once daily. Multiple Vitamins oral capsule (8 sources) Start: 08-14-2022 take 1 capsule by mouth once daily Multiple Vitamins oral capsule Dose = 1 cap(s), Oral, Daily, 0 Refill(s) Start Date: 08/14/22 Status: Ordered Multivitamin (Multiple Vitamins) 1 EACH tablet (8 sources) Start: 09-29-2016 take 1 tablet by mouth once daily Multivitamin (Multiple Vitamins) 1 EACH tablet Active 1 EACH PO DAILY September 29, 2016 3:09pm Start: 09-29-2016 take 1 tablet by jennifer once daily Multivitamin (Multiple Vitamins) 1 EACH tablet Active 1 NMA PO DAILY September 29, 2016 12:00am Start: 09-29-2016 take 1 tablet by jennifer th once daily Multivitamin (Multiple Vitamins) 1 EACH tablet Active 1 EACH PO DAILY September 28, 2016 11:00pm Start: 09-29-2016 take 1 tablet by jennifer th once daily Multivitamin (Multiple Vitamins) 1 EACH tablet Active 1 EACH PO DAILY September 29, 2016 12:00am Multivitamin preparation (3 sources) Start: 01-01-2014 take 1 tablet by mouth once daily Multivitamin Dose = 1 tab(s), Oral, Daily Start Date: 01/01/14 Status: Ordered multivitamin tablet (20 sources) Start: 03-22-2010 multivitamin tablet Take one(1) tablet daily. 0 03/22/2010 Active Comment on above: Take one(1) tablet d aily. mupirocin 0.02 mg/mg topical ointment (2 sources) RNA Synthetase Inhibitor Antibacterial Start: 11-06-2022 End: 11-22-2022 mupirocin (BACTROBAN) 2 % ointment Indications: Preoperative examination Apply 0.5 inch with cotton swab (Q-tip) to each nostril in the morning and evening for 5 days prior to and including day of surgery. 22 g 0 11/06/2022 11/22/2022 Active Comment on above: Apply 0.5 inch with cotton swab (Q-tip) to each nostril in the morning and evening for 5 days prior to and including day of surgery. 24 hr propranolol hydrochloride 60 mg extended release oral capsule (20 sources) beta-Adrenergic Chaitanya Start: 03-24-2021 propranolol 60 mg oral capsule, extended release Dose : 60 mg = 1 cap(s), Oral, qHS, 0 Refill(s) Start Date: 03/24/21 Status: Ordered Start: 03-24-2021 propranolol 60 mg oral capsule, extended release Dose : 60 mg = 1 cap(s), Oral, qHS, 0 Refill(s) Start Date: 03/24/21 Status: Ordered Start: 03-24-2021 propranolol 60 mg oral capsule, extended release Dose : 60 mg = 1 cap(s), Oral, qDay, # 30 cap(s), 0 Refill(s) Start Date: 03/24/21 Status: Ordered End: 11-06-2022 take 1 tablet by mouth three times daily propranolol (INDERAL) 60 mg tablet Take 60 mg by mouth three times daily. 0 11/06/2022 Discontinued Comment on above: Take 60 mg by mouth three times daily. rimegepant 75 mg disintegrating oral tablet (20 sources) Start: 2 take 1 tablet by mouth once as needed for headache Rimegepant (Nurtec Odt) 75 mg tablet,disintegrati ng Active 75 mg PO ONCE as needed for migraine headache October 26, 2021 12:00am as a single dose Start: 09-30-2021 End: 10-02-2022 Nurtec ODT 75 mg oral tablet , disintegrating Dose : 75 mg = 1 tab(s), Oral, Once, PRN as needed for migraine headache, # 8 tab(s), 0 Refill(s) Start Date: 09/30/21 Status: Ordered Comment on above: Take 1 tablet by jennifer th as needed for migraine - Limit 1 tablet per 24 hours rimegepant sulfate (NURTEC ODT ORAL) (16 sources) rimegepant sulfa te (NURTEC ODT ORAL) Take by mouth. Takes as needed for migraines Active rimegepant sulfa te (NURTEC ODT ORAL) Take by mouth. Takes as needed for migraines 0 Active rimegepant sulfa te (NURTEC ODT ORAL) Take by mouth. 0 Active Comment on above: Take by mouth. Take by mouth. Takes as needed for migraines sildenafil 20 mg oral tablet (10 sources) Phosphodiesterase 5 Inhibitor Start: 06-13-19 take 1 tablet by mouth once daily, then take 1-5 tablets by mouth every hour, then take 5 tablets by mouth every twenty-four hours sildenafil 20 mg oral tablet Dose : 20 mg =, Oral, qDay, Patient to take 1 to 5 tablets p.o. 1 hour prior to intercourse. (Patient to not exceed 5 tablets in 24 hours), # 30 tab(s), 11 Refill(s), Pharmacy: [facility], Prostate cancer, 193, cm, 06/13/21 9:23:00... Start Date: 06/13/21 Status: Ordered SUMAtriptan 100 mg oral tablet (20 sources) Serotonin-1b and Serotonin-1d Receptor Agonist Start: 02-27-20 take 1 tablet by mouth every twenty-four hours SUMAtriptan 100 mg oral tablet Dose : 100 mg = 1 tab(s), Oral, qDay, PRN as needed for migraine headache, may repeat dose after 2 hours up to a maximum of 200 mg in 24 hours, # 18 tab(s), 0 Refill(s) Start Date: 02/26/23 Status: Ordered Start: 10-26-2021 take 1 tablet by jennifer th once as needed for headache Sumatriptan Succinate 100 mg tablet Active 100 mg PO ONCE as needed for migraine headache October 26, 2021 12:00am Start: 11-15-2020 take 1 tablet by jennifer th every two hours, then take 2 tablets by mouth every twenty-four hours SUMAtriptan 100 mg oral tablet TAKE ONE TABLET BY MOUTH AT ONSET OF migraine. may repeat in 2 hours but no more than 2 tablets in 24 hours Start Date: 11/15/20 Status: Ordered Comment on above: Take 100 mg by mouth as needed. tadalafil 20 mg oral tablet (20 sources) Phosphodiesterase 5 Inhibitor Start: take 1 tablet by mouth once daily as needed Tadalafil 20 mg tablet Active 20 mg PO DAILY as needed for sexual activity July 10, 2024 1:00am Start: 01-03-2024 End: 02-29-2024 take 1 tablet by mouth every twenty-four hours Tadalafil (Cialis) 20 mg tablet Discontinued 20 mg PO DAILY as needed January 03, 2024 12:00am February 29, 2024 8:28am administer approximately 30min before sexual activity; do not use more than 1 dose per 24hrs Start: 10-09-2023 Cialis 20 mg o ral tablet Dose : 20 mg = 1 tab(s), Oral, qDay, # 6 tab(s), 11 Refill(s), Pharmacy: [facility], Prostate cancer -- [facility] 04/2021 PSA >10, 193, cm, 06/15/23 12:57:00 EST, Height, kg, 06/15/23 12:57:00 EST, Dosing Weight Start Date: 10/09/23 Status: Ordered Start: 08-03-2022 Cialis 20 mg o ral tablet Dose : 20 mg = 1 tab(s), Oral, qDay, # 6 tab(s), 11 Refill(s), Pharmacy: [facility], Prostate cancer -- [facility] 04/2021 PSA >10, 193, cm, 08/03/22 8:13:00 EST, Height, kg, 08/03/22 8:13:00 EST, Dosing Weight Start Date: 08/03/22 Status: Ordered Start: 01-16-2022 Cialis 20 mg o ral tablet Dose : 20 mg = 1 tab(s), Oral, qDay, # 6 tab(s), 11 Refill(s), Pharmacy: [facility], Prostate cancer -- [facility] 04/2021 PSA >10, 193, cm, 01/16/22 7:51:00 EDT, Height Start Date: 01/16/22 Status: Ordered ubidecarenone 400 mg oral capsule (20 sources) Start: 07-18-2024 take 10 capsules by mouth once daily Coenzyme Q10 400 mg capsule Active 400 mg PO daily July 18, 2024 1:00am Start: 10-26-2021 End: 07-18-2024 Coenzyme Q10 (Ultra Coq10) 7 5 mg capsule Discontinued 400 mg PO DAILY October 26, 2021 12:00am July 18, 2024 2:39pm Start: 12-10-2018 Coenzyme Q10 4 00 mg cap Take by mouth. 12/10/2018 Active Start: 03-19-2018 End: 10-02-2022 coenzyme Q10 (COQ-10) 100 mg cap capsule 03/19/2018 10/02/2022 Discontinued (Duplicate Entry) Comment on above: Take by mouth. valsartan 160 mg oral tablet (20 sources) Angiotensin 2 Receptor Chaitanya Start: 07-18-2024 take 1 tablet by mouth once daily Valsartan 160 mg tablet Active 160 mg PO daily July 18, 2024 1:00am Start: 02-29-2024 End: 07-18-2024 take 1 tablet by mouth once daily Valsartan 80 mg tablet Discontinued 80 mg PO daily February 29, 2024 12:00am July 18, 2024 3:37pm Start: 01-02-2023 valsartan 80 m g oral tablet Dose : 80 mg = 1 tab(s), Oral, qDay, # 90 tab(s), 3 Refill(s), Pharmacy: [facility], 195, cm, 01/01/23 8:25:00 EDT, Height, kg, 01/01/23 8:25:00 EDT, Dosing Weight Start Date: 01/02/23 Status: Ordered Start: 04-17-2022 valsartan 160 mg oral tablet Dose : 160 mg = 1 tab(s), Oral, qDay, # 90 tab(s), 3 Refill(s), Pharmacy: [facility], 193, cm, 08/14/22 9:29:00 EDT, Height, kg, 08/14/22 9:29:00 EDT, Dosing Weight Start Date: 08/14/22 Status: Ordered Start: 02-09-2022 valsartan 320 mg oral tablet Dose : 320 mg = 1 tab(s), Oral, qDay, increased dose, # 90 tab(s), 1 Refill(s), Pharmacy: [facility], Hypertension, 195, cm, 02/09/22 9:03:00 EDT, Height Start Date: 02/09/22 Status: Ordered Start: 01-09-2022 valsartan 80 m g oral tablet Dose : 80 mg = 1 tab(s), Oral, qHS, # 30 tab(s), 1 Refill(s), Pharmacy: [facility], Hypertension, 195.5, cm, 01/09/22 11:21:00 EDT, Height Start Date: 01/09/22 Status: Ordered Comment on above: Take 160 mg by mouth once daily. 24 hr verapamil hydrochloride 180 mg extended release oral capsule (20 sources) Calcium Channel Chaitanya Start: 03-03-2024 take 1 capsule by mouth twice daily verapamil 180 mg/24 hours oral capsule, extended release 1 cap(s), Oral, BID, # 180 cap(s), 3 Refill(s), Pharmacy: [facility]/pharmacy #[id number], 193, cm, 03/03/24 11:13:00 EDT, Height, kg, 03/03/24 11:13:00 EDT, Dosing Weight Start Date: 03/03/24 Status: Ordered Start: 02-29-2024 End: 07-18-2024 take 1 tablet by mouth twice daily Verapamil 180 mg tablet extended release Discontinued 180 mg PO TWICE A DAY February 29, 2024 8:26am July 18, 2024 3:37pm Start: 04-17-2022 take 1 capsule by mo uth every hour, then take 1 capsule by mouth twice daily, then take 1 capsule by mouth once daily verapamil 180 mg/24 hours oral capsule, extended release Dose : 180 mg = 1 cap(s), Oral, BID, TAKE ONE CAPSULE BY MOUTH EVERY DAY, # 180 cap(s), 3 Refill(s), Pharmacy: [facility], Hypertension, 193, cm, 04/03/22 8:47:00 EDT, Height, kg, 04/03/22 8:47:00 EDT, Dosing Weight Start Date: 04/17/22 Status: Ordered Start: 09-30-2021 take 1 capsule by mo uth every hour, then take 1 capsule by mouth once daily, then take 1 capsule by mouth once daily verapamil 180 mg/24 hours oral capsule, extended release Dose : 180 mg = 1 cap(s), Oral, qDay, TAKE ONE CAPSULE BY MOUTH EVERY DAY, # 90 cap(s), 3 Refill(s), Pharmacy: [facility], Hypertension, 195, cm, 09/30/21 8:24:00 EDT, Height, kg, 09/30/21 8:24:00 EDT, Dosing Weight Start Date: 09/30/21 Status: Ordered Start: 05-17-2021 take 1 capsule by mo uth every hour, then take 1 capsule by mouth once daily, then take 1 capsule by mouth once daily verapamil 180 mg/24 hours oral capsule, extended release Dose : 180 mg = 1 cap(s), Oral, qDay, TAKE ONE CAPSULE BY MOUTH EVERY DAY, # 90 cap(s), 1 Refill(s), Pharmacy: [facility], Hypertension, 193, cm, 05/09/21 7:55:00 EST, Height, kg, 05/09/21 7:55:00 EST, Dosing Weight Start Date: 05/17/21 Status: Ordered Start: 05-17-2021 take 1 capsule by mo uth every hour, then take 1 capsule by mouth once daily, then take 1 capsule by mouth once daily verapamil 180 mg/24 hours oral capsule, extended release Dose : 180 mg = 1 cap(s), Oral, qDay, TAKE ONE CAPSULE BY MOUTH EVERY DAY, # 90 cap(s), 1 Refill(s), Pharmacy: [facility], Hypertension, 193, cm, 05/09/21 7:55:00 EST, Height, kg, 05/09/21 7:55:00 EST, Dosing Weight Start Date: 05/17/21 Status: Ordered Start: 05-18-2020 take 1 capsule by mo [facility] every hour, then take 1 capsule by mouth once daily, then take 1 capsule by mouth once daily verapamil 180 mg/24 hours oral capsule, extended release Dose : 180 mg = 1 cap(s), Oral, qDay, TAKE ONE CAPSULE BY MOUTH EVERY DAY, # 90 cap(s), 3 Refill(s), Pharmacy: [facility], Hypertension, 196.5, cm, 05/18/20 8:09:00 EST, Height, kg, 05/18/20 8:09:00 EST, Dosing Weight Start Date: 05/18/20 Status: Ordered Start: 08-13-2017 End: 02-29-2024 take 1 tablet by mouth once daily Verapamil 180 MG tablet extended release Discontinued 180 mg PO DAILY August 13, 2017 12:00am February 29, 2024 8:29am Start: 05-07-2017 take 1 capsule by [facility] twice daily verapamil ER 180 mg 24 hr capsule Indications: Alcoholic cirrhosis of liver without ascites (HCC) Take 180 mg by mouth twice daily. 05/07/2017 Active Start: 05-07-2017 verapamil ER 1 80 mg 24 hr capsule Comment on above: Take 180 mg by mouth twice daily. Vitamin B Complex 100 (13 sources) Start: 05-09-2021 Vitamin B Complex 100 0 Refill(s) Start Date: 05/09/21 Status: Ordered Vitamin B Complex capsule (4 sources) Start: 02-29-2024 Vitamin B Complex capsule Active 1 NMA PO daily February 29, 2024 12:00am VITAMIN B COMPLEX ORAL (20 sources) take 1 tablet by mouth once daily VITAMIN B COMPLEX ORAL Indications: Alcoholic cirrhosis of liver without ascites (HCC) Take 1 tablet by mouth once daily. Active take 1 tablet by mouth once gustavo y VITAMIN B COMPLEX ORAL Indications: Alcoholic cirrhosis of liver without ascites (HCC) Take 1 tablet by mouth once daily. 0 Active Comment on above: [facility] Vitamin B Complex oral capsule (17 sources) Start: 08-14-2022 take 1 capsule by mouth once daily Vitamin B Complex oral capsule Dose = 1 cap(s), Oral, Daily, 0 Refill(s) Start Date: 08/14/22 Status: Ordered Start: 04-03-2022 take 1 capsule by mo [facility] once daily Vitamin B Complex oral capsule Dose = 1 cap(s), Oral, Daily, 0 Refill(s) Start Date: 04/03/22 Status: Ordered Start: 01-16-2022 take 1 capsule by mo [facility] once daily Vitamin B Complex oral capsule Dose = 1 cap(s), Oral, Daily, 0 Refill(s) Start Date: 01/16/22 Status: Ordered Vitamin D3 125 mcg (5000 int l units) oral capsule (4 sources) Start: 06-15-2023 Vitamin D3 125 mcg (5000 intl units) oral capsule Dose : 125 mcg = 1 cap(s), Oral, qDay, # 100 cap(s), 0 Refill(s) Start Date: 06/15/23 Status: Ordered Completed/Discontinued Medications Medication Drug Class(es) Dates Sig (Normalized) Sig (Original) acetaminophen 325 mg / HYDROcodone bitartrate 5 mg oral tablet (8 sources) Opioid Agonist Start: 11-23-2022 End: 12-07-2022 take 1-2 tablets by mouth every six hours as needed for pain HYDROcodone-acetami nophen (NORCO) 5-325 mg per tablet Indications: S/P revision of total knee, left Take 1-2 tablets by mouth every 6 hours as needed for pain. 50 tablet 12/01/2022 12/07/2022 Discontinued Start: 10-24-2021 End: 10-27-2021 take 1 tablet by mouth every eight hours as needed for pain [place] 325- 5 mg oral tablet Dose = 1 tab(s), Oral, q8h, PRN as needed for pain, X 3 day(s), # 9 tab(s), 0 Refill(s), Knee sprain, 116 Start Date: 10/24/21 Stop Date: 10/27/21 Status: Ordered Start: 04-30-2021 End: 05-07-2021 [place] 325- 5 mg oral tablet Dose = 1 tab(s), Oral, q4h, PRN Pain, scale 4-6, X 7 day(s), # 12 tab(s), 0 Refill(s), CA - Cancer of prostate, 111.2 Start Date: 04/30/21 Stop Date: 05/07/21 Status: Ordered Comment on above: Take 1-2 tablets by mouth every 6 hours as needed for pain. amLODIPine 10 mg oral tablet (4 sources) Dihydropyridine Calcium Channel Chaitanya Start: 025 End: 025 take 1 tablet by mouth once daily Amlodipine 10 mg tablet Discontinued 10 mg PO daily July 18, 2024 1:00am September 26, 2024 9:54am B-Complex With Vitamin C 1 EACH tablet (4 sources) Start: 017 End: 022 take 1 tablet by mouth once daily B-Complex With Vitamin C 1 EACH tablet Discontinued 1 NMA PO DAILY September 29, 2016 12:00am October 26, 2021 7:43am calcium ascorbate 500 mg oral tablet (7 sources) Start: 022 End: 024 take 1 tablet by mouth once daily Ascorbate Calcium (Vitamin C) 500 mg tablet Discontinued 500 mg PO DAILY October 26, 2021 12:00am February 29, 2024 8:25am docosahexanoic acid/epa (FISH OIL ORAL) (16 sources) End: 023 docosahexanoic acid/epa (FISH OIL ORAL) Indications: Alcoholic cirrhosis of liver without ascites (HCC) Take by mouth. 11/06/2022 Discontinued End: 11-06-2022 docosahexanoic acid/epa (FIS H OIL ORAL) Indications: Alcoholic cirrhosis of liver without ascites (HCC) Take by mouth. 0 11/06/2022 Discontinued docosahexanoic a antwon/epa (FISH OIL ORAL) Indications: Alcoholic cirrhosis of liver without ascites (HCC) Take by mouth. 0 Active Comment on above: Take by mouth. docusate sodium 100 mg oral capsule (8 sources) Start: 3 End: 3 take 1 capsule by mouth every twelve hours as needed docusate sodium (COLACE) 100 mg capsule Take 1 capsule by mouth twice daily as needed for constipation. 60 capsule 11/23/2022 12/23/2022 Comment on above: Take 1 capsule by mo ut twice daily as needed for constipation. doxycycline hyclate 100 mg oral capsule (9 sources) Tetracycline-class Drug Start: 3 End: 3 take 1 capsule by mouth every twelve hours doxycycline hyclate (VIBRAMYCIN) 100 mg capsule Take 1 capsule by mouth every 12 hours 6am/6pm for 82 doses. 82 capsule 11/23/2022 12/21/2022 Discontinued Comment on above: Take 1 capsule by mo ut every 12 hours 6am/6pm for 82 doses. Take 1 capsule by mo ut every 12 hours 6am/6pm for 14 doses. Fish Oil-Dha-Epa 1 EACH capsule (4 sources) Start: 7 End: 2 take 1 capsule by mouth twice daily Fish Oil-Dha-Epa 1 EACH capsule Discontinued 1 NMA PO TWICE A DAY September 29, 2016 12:00am October 26, 2021 7:44am 10 ml lidocaine hydrochloride 10 mg/ml injection (1 source) Antiarrhythmic, Amide Local Anesthetic Start: 2 End: 2 lidocaine (PF) 10 mg/mL (1 %) 3 mL injection (XYLOCAINE) Start: 12-30-2021 End: 12-30-2021 lidocaine (PF) 10 mg/mL (1 % ) 3 mL injection (XYLOCAINE) Magnesium (7 sources) Start: 10-26-2021 End: 02-29-2024 Magnesium 250 mg tablet Disc ontinued 400 mg PO DAILY October 26, 2021 12:00am February 29, 2024 8:28am Start: 10-26-2021 take 400 mg by mouth once gustavo y Magnesium Active 400 MG PO DAILY October 25, 2021 11:00pm Start: 10-26-2021 take 400 mg by mouth once gustavo y Magnesium Active 400 MG PO DAILY October 26, 2021 12:00am melatonin 10 mg oral capsule (20 sources) Start: 08-13-2017 End: 11-06-2022 take 1 capsule by mouth at bedtime Melatonin 10 MG capsule Discontinued 10 mg PO AT BEDTIME August 13, 2017 12:00am October 26, 2021 7:45am Comment on above: Take by mouth once d aily. methylPREDNISolone 4 mg oral tablet (2 sources) Corticosteroid Start: 10-25-2021 methylPREDNISolone (MEDROL, RODNEY,) 4 mg Dose-Pack Take 1 tablet by mouth as directed. As directed on package 1 Package 0 10/25/2021 Active Comment on above: Take 1 tablet by jennifer as directed. As directed on package multivitamin (DAILY MULTIVITAMIN) ORAL tablet (7 sources) Start: 03-22-2010 take 1 tablet by mouth once daily multivitamin (DAILY MULTIVITAMIN) ORAL tablet Take one(1) tablet daily. 0 03/22/2010 Active Comment on above: Take one(1) tablet d aily. nadolol 80 mg oral tablet (8 sources) beta-Adrenergic Chaitanya Start: 09-29-2016 End: 10-26-2021 take 1 tablet by mouth once daily Nadolol (Corgard (Beta Chaitanya)) 80 MG tablet Discontinued 80 mg PO DAILY September 29, 2016 12:00am October 26, 2021 7:45am naproxen 500 mg oral tablet (20 sources) Nonsteroidal Anti-inflammatory Drug Start: 06-17-2018 End: 11-01-2021 take 1 tablet by mouth every twelve hours as needed naproxen (NAPROSYN) 500 mg tablet Take 1 tablet by mouth twice daily as needed (for migraine). FOR PAIN. TAKE WITH FOOD. 45 tablet 3 06/17/2018 11/01/2021 Discontinued Start: 08-13-2017 End: 02-29-2024 Naproxen 500 MG tablet,delay ed release (/EC) Discontinued 500 mg PO NEEDED as needed for Migraine Symptoms August 13, 2017 12:00am February 29, 2024 8:28am Comment on above: Take 1 tablet by jennifer twice daily as needed (for migraine). FOR PAIN. TAKE WITH FOOD. omeprazole 40 mg delayed release oral capsule (20 sources) Proton Pump Inhibitor Start: 7 End: take 1 capsule by mouth once daily Omeprazole (Prilosec) 40 MG capsule Discontinued 40 mg PO DAILY September 29, 2016 12:00am February 29, 2024 8:26am Start: 07-06-2009 take 1 capsule by mo [facility] once daily Omeprazole 20 mg capsule,delayed release(DR/EC) Active 20 mg PO daily February 29, 2024 12:00am take 1 tablet by jennifer th once daily Omeprazole Magnesium 20 mg tablet Take 20 mg by mouth once daily. Active Comment on above: Take one(1) capsule daily. Take 20 mg by mouth once daily. polyethylene glycol 3350 58353 mg powder for oral solution (5 sources) Osmotic Laxative Start: 11-23-2022 End: 12-07-2022 polyethylene glycol 3350 17 gram/dose powder Take 17 g by mouth once daily as needed for constipation for up to 10 days. Dissolve dose in 4 - 8 ounces of liquid and take as directed. 238 g 11/23/2022 12/07/2022 Comment on above: Take 17 g by mouth o nce daily as needed for constipation for up to 10 days. Dissolve dose in 4 - 8 ounces of liquid and take as directed. rizatriptan 10 mg oral tablet (20 sources) Serotonin-1b and Serotonin-1d Receptor Agonist Start: 06-17-2018 End: 11-06-2022 rizatriptan (MAXALT) 10 mg tablet Take 1 po at ONSET OF HEADACHE. MAY REPEAT once AFTER 2 HOURS. DO NOT use on more than 2 days per given week. 27 tablet 3 06/17/2018 11/06/2022 Discontinued Start: 08-13-2017 End: 10-26-2021 Rizatriptan 10 MG tablet,dis integrating Discontinued 10 mg PO NEEDED as needed for MIGRAINES August 13, 2017 12:00am October 26, 2021 7:45am Comment on above: Take 1 po at ONSET O F HEADACHE. MAY REPEAT once AFTER 2 HOURS. DO NOT use on more than 2 days per given week. rOPINIRole 0.5 mg oral tablet (7 sources) Nonergot Dopamine Agonist Start: 10-27-19 End: 02-29-20 Ropinirole 0.5 mg tablet Discontinued 0.5 mg PO DAILY 60 October 26, 2021 12:00am February 29, 2024 8:28am 1 tab 1-2 hours before bed, on 4th night may increase to 2 tabs spironolactone 25 mg oral tablet (20 sources) Aldosterone Antagonist Start: 08-15-19 23 End: 02-29-20 24 take 1 tablet by mouth once daily Spironolactone 25 mg tablet Discontinued 25 mg PO DAILY January 03, 2024 12:00am February 29, 2024 8:28am Start: 04-03-2022 spironolactone 25 mg oral tablet Dose : 25 mg = 1 tab(s), Oral, qDay, # 30 tab(s), 5 Refill(s), Pharmacy: [facility], 193, cm, 04/03/22 8:47:00 EDT, Height Start Date: 04/03/22 Status: Ordered Comment on above: Take 25 mg by mouth once daily. topiramate 100 mg oral tablet (16 sources) Start: 9 End: 3 take 1 tablet by mouth once daily at bedtime topiramate (TOPAMAX) 100 mg tablet Take 1 tablet by mouth daily at bedtime. 90 tablet 3 06/17/2018 11/06/2022 Discontinued Comment on above: Take 1 tablet by jennifer th daily at bedtime. traMADol hydrochloride 50 mg oral tablet (14 sources) Opioid Agonist Start: 3 End: 3 take 1 tablet by mouth every six hours as needed for pain traMADol (ULTRAM) 50 mg tablet Indications: Status post revision of total replacement of left knee Take 1 tablet by mouth every 6 hours as needed for pain for up to 7 days. for pain. 28 tablet 0 2022 12/21/2022 Discontinued Start: 08-20-2017 End: 10-26-2021 take 1 tablet by mouth every four hours as needed for pain Tramadol 50 MG tablet Discontinued 50 mg PO EVERY 4 HOURS NEEDED as needed for Pain August 20, 2017 12:00am October 26, 2021 7:45am Comment on above: Take 1 tablet by jennifer th every 6 hours as needed for pain for up to 7 days. for pain. Problems Active Problems Problem Classification Problem Date Documented Date Episodic/Chronic Abdominal hernia (13 sources) Hiatal hernia; Translations: [Diaphragmatic hernia without obstruction or gangrene] 06-13-2022 Episodic Acquired foot deformities (20 sources) Acquired hallux rigidus 04-03-2016 Chronic Comment on above: Right foot Alcohol-related disorders (20 sources) Alcoholic cirrhosis of liver without ascites; Translations: [Alcoholic liver damage] Onset: 11-21-2016 01-01-2014 Chronic Cancer of prostate (20 sources) Malignant tumor of prostate 04-17-2021 Chronic Cancer of prostate (20 sources) History of malignant neoplasm of prostate; Translations: [Personal history of malignant neoplasm of prostate] Onset: 11-06-2022 07-24-2022 Episodic Chronic obstructive pulmonary disease and bronchiectasis (20 sources) Bronchitis 11-20-2020 Episodic Coagulation and hemorrhagic disorders (20 sources) Platelet count below reference range; Translations: [Thrombocytopenia, unspecified] Onset: 06-15-2015 06-15-2015 Chronic Comment on above: d/t liver disease Coronary atherosclerosis and other heart disease (5 sources) Coronary arteriosclerosis; Translations: [Atherosclerotic heart disease of nondalton coronary artery without angina pectoris] Onset: 10-08-2024 08-22-2024 Chronic Deficiency and other anemia (20 sources) Pancytopenia; Translations: [Pancytopenia] Onset: 03-14-2010 03-14-2010 Chronic Diseases of white blood cells (17 sources) Leukopenia; Translations: [Decreased white blood cell count, unspecified] Onset: 11-06-2022 Chronic Disorders of lipid metabolism (9 sources) Dyslipidemia; Translations: [Hyperlipidemia, unspecified] Onset: 09-04-2024 07-10-2024 Chronic Esophageal disorders (20 sources) Gastroesophageal reflux disease without esophagitis; Translations: [Esophageal varices] Onset: 08-09-2011 03-12-2019 Chronic Essential hypertension (20 sources) Hypertensive disorder; Translations: [Essential (primary) hypertension] Onset: 06-15-2015 01-01-2014 Chronic Genitourinary symptoms and ill-defined conditions (20 sources) Unspecified urinary incontinence; Translations: [Functional urinary incontinence] Onset: 05-06-2021 Chronic Headache; including migraine (20 sources) Migraine; Translations: [Refractory migraine without aura] Onset: 06-17-2018 11-26-2019 Chronic Joint disorders and dislocations; trauma-related (1 source) Knee joint laxity; Translations: [Other internal derangements of left knee] Chronic Osteoarthritis (20 sources) Osteoarthritis of left knee joint; Translations: [Unilateral primary osteoarthritis, left knee] Onset: 11-11-2013 Resolved: 06-28-2015 02-26-2015 Chronic Other connective tissue disease (10 sources) History of total knee arthroplasty; Translations: [Presence of left artificial knee joint] Chronic Other connective tissue disease (19 sources) History of revision of left total knee arthroplasty; Translations: [Presence of left artificial knee joint] Onset: 11-23-2022 11-23-2022 Chronic Other connective tissue disease (1 source) Artificial knee joint present; Translations: [Presence of left artificial knee joint] Chronic Other hereditary and degenerative nervous system conditions (7 sources) Restless legs; Translations: [Restless legs syndrome] 10-26-2021 Chronic Other hereditary and degenerative nervous system conditions (2 sources) Restless legs syndrome; Translations: [Restless legs syndrome (RLS)] Chronic Other liver diseases (20 sources) Cirrhosis of liver; Translations: [Unspecified cirrhosis of liver] Onset: 08-09-2011 08-09-2011 Chronic Other liver diseases (2 sources) Unspecified cirrhosis of liver; Translations: [Unspecified cirrhosis of liver] Onset: 02-29-2024 Chronic Other male genital disorders (13 sources) Impotence; Translations: [Male erectile dysfunction, unspecified] 08-03-2022 Chronic Other nervous system disorders (20 sources) Walking difficulty due to pelvic region and thigh; Translations: [Difficulty in walking, not elsewhere classified] Onset: 07-05-2015 07-05-2015 Chronic Other nervous system disorders (1 source) Other chronic pain; Translations: [Chronic pain of left knee] Onset: 07-05-2015 Chronic Other nervous system disorders (1 source) Difficulty walking; Translations: [Difficulty in walking, not elsewhere classified] Onset: 07-05-2015 07-05-2015 Chronic Other non-traumatic joint disorders (20 sources) Pain in left knee; Translations: [Pain in joint, lower leg] Onset: 07-05-2015 Episodic Other non-traumatic joint disorders (5 sources) Swollen knee region; Translations: [Effusion, unspecified knee] Episodic Other non-traumatic joint disorders (3 sources) Effusion of joint of left knee; Translations: [Effusion, left knee] Episodic Other non-traumatic joint disorders (1 source) Stiffness of left knee; Translations: [Stiffness of left knee, not elsewhere classified] Episodic Other non-traumatic joint disorders (1 source) Knee stiff; Translations: [Stiffness of left knee, not elsewhere classified] Episodic Other screening for suspected conditions (not mental disorders or infectious disease) (20 sources) Platelet count below reference range; Translations: [Raised prostate specific antigen] 03-12-2019 Episodic Residual codes; unclassified (7 sources) Daytime hypersomnia; Translations: [Hypersomnia, unspecified] 10-26-2021 Chronic Residual codes; unclassified (2 sources) Hypersomnia, unspecified; Translations: [Hypersomnia, unspecified] Chronic Residual codes; unclassified (20 sources) Requires vaccination 03-11-2020 Episodic Residual codes; unclassified (19 sources) Needs influenza immunization 04-27-2021 Episodic Spondylosis; intervertebral disc disorders; other back problems (20 sources) Spasm of back muscles; Translations: [Low back pain] 04-03-2016 Episodic Sprains and strains (1 source) Sprain of knee; Translations: [Sprain of unspecified site of unspecified knee, initial encounter] Onset: 10-24-2021 Episodic Unclassified (20 sources) Patient encounter status 12-23-2020 Unclassified (9 sources) Grade A1 albuminuria 07-24-2022 Unclassified (9 sources) Long-term current use of proton pump inhibitor therapy 06-13-2022 Viral infection (3 sources) Disease caused by 2019-nCoV; Translations: [COVID-19] Onset: 11-07-2021 Past or Other Problems Problem Classification Problem Date Documented Da te Episodic/Chronic Cardiac dysrhythmias (20 sources) Palpitations; Translations: [Palpitations] Onset: 07-18-2024 09-30-2021 Episodic Complication of device; implant or graft (12 sources) Mechanical complication of genitourinary device, implant AND/OR graft; Translations: [Other mechanical complication of other urinary catheter, initial encounter] Onset: 05-06-2021 Resolved: 11-23-2022 Episodic Malaise and fatigue (20 sources) Asthenia; Translations: [Weakness] Onset: 07-05-2015 07-05-2015 Episodic Other gastrointestinal disorders (1 source) Splenomegaly, not elsewhere classified; Translations: [Splenomegaly, not elsewhere classified] Onset: 04-04-2010 Episodic Other gastrointestinal disorders (20 sources) Splenomegaly; Translations: [Splenomegaly, not elsewhere classified] Onset: 04-04-2010 04-04-2010 Episodic Results Test Name Value Interpretation Reference Range Facility /[facility] 11-13-2024 MR/PAT.[facility] Medical Records Department [address] [facility] [address] PAT - Anesthesia 11/13/24 1504 MR#: [id number] Acct: [id number] Name: SRINATH PEPE Rep #: [id number] : [id number] 63 From: Rudi Nazario MD PCP: Dr. 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 When Was Last Pacemaker Check QUESTION #4 FULL TEXT: You/Your Family Experience fever (hyperthermia) with Anesthesia Last Oral Intake Last Oral intake: Last Oral Intake NPO since Meds taken in AM with sips of water? Meds patient instructed to take am of surgery PONV PONV - sales representative electric service: PONV - sales representative electric service Female Yes 11/13/24 14:50 HX of Motion Sickness No 11/13/24 14:50 HX of N/V After Surgery No 11/13/24 14:50 Non-Smoker Yes 11/13/24 14:50 Duration of Surgery greater No 11/13/24 14:50 than 60 minutes Number of Risk Factors 2 11/13/24 14:50 PONV Score Moderate Risk 11/13/24 14:50 Height Weight Height Weight: Anesthesia: Height Weight Height 6 ft 4 in 10/16/24 12:11 Respiratory Assessment Respiratory Assessment - sales representative electric service: Respiratory Tract Infection Hx - sales representative electric service Hx Respiratory Tract Infection No 11/13/24 14:50 STOP Sleep Apnea STOP Sleep Apnea - sales representative electric service: STOP Sleep Apnea - sales representative electric service Hx Hypertension Yes: CONTROLLED WITH MEDS 11/13/24 14:50 Hx Sleep Apnea No 11/13/24 14:50 CPAP No 07/22/24 12:48 BIPAP Do you snore loudly (louder No 11/13/24 14:50 than talking or can be heard Do you often feel tired/ No 11/13/24 14:50 fatigued/ sleepy during daytime? Has anyone observed you stop No 11/13/24 14:50 breathing during sleep? STOP Results Negative 11/13/24 14:50 QUESTION #5 FULL TEXT : Do you snore loudly (louder than talking or can be heard through closed doors)? Tobacco Use History Tobacco Use History - sales representative electric service: Tobacco Use History - sales representative electric service Tobacco Use Smoking Status Never smoker 11/13/24 14:50 Hx Tobacco Use No 11/13/24 14:50 Years Smoking Packs Smoked per Day Smoking Cessation Date was within the last 15 years Hx Smoking Cessation Date Hx Smoking Cessation Counseling Hematologic Medial History Hematologic Hx - sales representative electric service: Hematologic Medical Hx - adjutant general Hx of Blood Transfusion No 11/13/24 14:50 Hx of Transfusion in last 3 No 11/13/24 14:50 Months Date of Last Transfusion (if within last 3 months) Ever experience any problems No 11/13/24 14:50 with transfusion(s)? Specify any problems Hx of Preganancy in last 3 N/A 11/13/24 14:50 Months Nurse Filling Out Transfusion [email or web address] 11/13/24 14:50 Questions: Date: 11/13/24 11/13/24 14:50 Time: 14:51 11/13/24 14:50 Patient unable to answer at this time (ie. confused, unrespo /Reproduction History /Reproductive History - sales representative electric service: /Reproductive Hx- sales representative electric service Hx Now No 11/13/24 14:50 Gestational Age (in weeks): EDC: Hx Hx Para Hx Section SAB No 11/13/24 14:50 PFSH Medical History (Updated 11/13/24 @ 14:54 by Gerardo Montes) History of hiatal hernia History of echocardiogram Cardiology follow-up encounter CAD (coronary artery disease) Wears hearing aid Wears glasses Migraine headache Gastric reflux Non-smoker Palpitations Low back pain Dyslipidemia Urinary incontinence, functional Hypertension Erectile dysfunction Chronic migraine Prostate cancer Thrombocytopenia Alcohol abuse Arthritis Hiatal hernia GERD (gastroesophageal reflux disease) Alcoholic cirrhosis of liver Restless leg syndrome Home Medications ???Medication ???Instructions ???Recorded ???Last Taken ???Type multivitamin (Multiple Vitamins 1 ea PO DAILY 09/29/16 Unknown His tory tablet) rimegepant 75 mg disintegrating 75 mg PO ONCE PRN migraine headach e 10/26/21 Unknown History tablet (Nurtec ODT) sumatriptan succinate 100 mg tablet 100 mg PO ONCE PRN migraine Unknown History (more content not included)... Normal [facility] Cardiology Visit Reporton Cardiology Visit Report [facility] [address] [place] [address] OFFICE VISIT Date of Service: 10/16/24 MR#: [id number] Acct: [id number] Name: SRINATH PEPE Rep #: [id number] : 1960 Provider: Dr. Jonathan Saleem MD Age/Sex: 63/M Location: [facility] [place] Status: Signed HPI HPI History of Present Illness Details: 63-year-old man with a history of hypertension who presents here for a follow-up evaluation. He had been seen here initially for hypertension and also with underlying cirrhosis. As part of his workup he underwent a series of investigations including an echocardiogram demonstrating ejection fraction of 60%, mild concentric low ventricular hypertrophy. He also had a coronary calcium score done. He tells me that he has lost some weight on his current GLP-1 agonist. He denies any chest pain or shortness breath or paroxysmal nocturnal dyspnea or pedal edema no neck arm or jaw discomfort suggest angina. Intake Vital Signs 07/18/24 13:34 09/10/24 08:19 10/16/24 12:11 Height 6 ft 4 in 6 ft 4 in 6 ft 4 in Weight: 251 lb 243 lb BMI 30.5 29.5 BP 113/75 159/88 H Blood Pressure Location Lt brachial Position Sitting Respiration 16 14 Pulse 64 51 L Pulse Source Monitor Pulse Oximetry (%) 94 Oxygen Delivery Method room air Intake Visit Reasons: 3 M FU Impregnation Operator Required: No Accompanied by: Self Is patient in pain?: No Allergies fluoxetine (From Prozac) Allergy (Verified 10/16/24 12:13) Hives sertraline Allergy (Verified 10/16/24 12:13) Rash amlodipine Adverse Reaction (Severe, Verified 10/16/24 12:13) Swelling doxazosin Adverse Reaction (Verified 10/16/24 12:13) Weakness oxycodone Adverse Reaction (Verified 10/16/24 12:13) HICCUPS Medications ???Medication ???Instructions ???Recorded ???Confirmed ???Type multivitamin (Multiple Vitamins 1 ea PO DAILY 09/29/16 10/16/24 Hi story tablet) rimegepant 75 mg disintegrating 75 mg PO ONCE PRN migraine headach e 10/26/21 10/16/24 History tablet (Nurtec ODT) sumatriptan succinate 100 mg tablet 100 mg PO ONCE PRN migraine 10/16/24 History headache cholecalciferol (vitamin D3) 125 125 mcg PO QDAY 02/29/24 10/16/24 History mcg (5,000 unit) tablet omeprazole 20 mg capsule,delayed 20 mg PO QDAY 02/29/24 10/16/24 Hi story release vitamin B complex 1 cap PO QDAY 02/29/24 10/16/24 Hi story tadalafil 20 mg tablet 20 mg PO DAILY PRN sexual activity 07/10/24 10/16/24 History carvedilol 25 mg tablet 25 mg PO BID #180 tabs 07/18/24 Rx coenzyme Q10 400 mg capsule 400 mg PO QDAY 07/18/24 10/16/24 H istory lactobacillus combination no.4 3 3,000 mmu cells PO QDAY 07/18/24 0 10/16/24 History billion cell capsule (Probiotic) ezetimibe 10 mg tablet (Zetia) 10 mg PO QDAY #90 tabs 10/16/24 Rx hydrochlorothiazide 25 mg tablet 25 mg PO QDAY #90 tabs 10/16/24 Rx valsartan 320 mg tablet 320 mg PO QDAY #90 tabs 10/16/24 0 10/16/24 Rx Have you fallen in the past year?: No PFSH Medical History CAD (coronary artery disease) Wears hearing aid Wears glasses Migraine headache Gastric reflux Non-smoker Palpitations Low back pain Dyslipidemia Urinary incontinence, functional Hypertension Erectile dysfunction Chronic migraine Prostate cancer Thrombocytopenia Alcohol abuse Arthritis Hiatal hernia GERD (gastroesophageal reflux disease) Alcoholic cirrhosis of liver Restless leg syndrome Surgical History History of hernia surgery History of esophagogastroduodenoscopy (EGD) History of colonoscopy History of vasectomy History of toe surgery History of radical prostatectomy History of total left knee replacement History of cholecystectomy Family History Mother Arthritis Hypertension Father CAD (coronary artery disease) Heart disease Brother Cancer Liver Other Alcoholism Social History Smoking Status: Never smoker alcohol intake: former year quit: 2008 substance use type: does not use caffeine: Yes Type: coffee Number of servings: 2 ROS Const Const: Negative for fatigue, weakness, headache(s), daytime sleepiness or difficulty sleeping ENT ENT: Negative for headache(s), dizziness or Nosebleed/epistaxis Cardio Chest Pain: No Palpitations: No Edema: None Resp Respiratory: Negative for SOB with activity, SOB at rest, SOB orthopnea SOB lying down or Cough GI GI: Negative nausea, vomiting or heartburn Neuro Neuro: Negative for dizziness, lightheadedness, near syncope, headache(s) or weakness Endo Endo: (more content not included)... Normal [facility] Anion gap in Serum or Plasma Ordered By: Adalgisa Lee on 10-03-2024 Anion gap [Moles/Vol] 11 mmol/L 10-16 [facility] BUN/creatinine ratioOrdered By: Adalgisa Lee on 10-03-2024 Urea nitrogen/Creatinine [Mass ratio] 25.5 mg/mg High 03-23 [facility] Basic Metabolic Profile (BMP )on 10-03-2024 BUN/CRE 25.5 RATIO High 03-23 [facility] Comment on above: Performed By: #### L 500.2500 ####[facility] [address] [place], [address] Calcium [Mass/Vol] 9.3 mg/dL Normal 7.6-11.0 [facility] Comment on above: Performed By: #### L 500.2500 ####[facility] [address] [place], [address] Chloride [Moles/Vol] 104 mmol/L Normal 98-108 [facility] Comment on above: Performed By: #### L 500.2500 ####[facility] [address] [place], [address] CO2 [Moles/Vol] 23.3 mmol/L Normal 21.0-32.0 [facility] Comment on above: Performed By: #### L 500.2500 ####[facility] [address] [place], [address] Creatinine [Mass/Vol] 0.99 mg/dL Normal 0.70-1.20 [facility] Comment on above: Performed By: #### L 500.2500 ####[facility] [address] [place], [address] GAP 11 Normal 5-15 [facility] Comment on above: Performed By: #### L 500.2500 ####[facility] [address] [place], [address] GFR/1.73 sq M.predicted among non-blacks MDRD (S/P/Bld) [Vol rate/Area] 85 mL/min/{1.73_m2} Normal >60 [facility] Comment on above: Result Comment: mL/m in/1.73m2 CKD-EPI Creatinine Equation (2020) Performed By: #### L 500.2500 ####[facility] [address] [place], [address] Glucose [Mass/Vol] 126 mg/dL High 70-99 [facility] Comment on above: Performed By: #### L 500.2500 ####[facility] [address] [place], [address] Potassium [Moles/Vol] 3.6 mmol/L Normal 3.3-5.1 [facility] Comment on above: Performed By: #### L 500.2500 ####[facility] [address] [place], [place], [id number] Sodium [Moles/Vol] 139 mmol/L Normal 133-145 [facility] Comment on above: Performed By: #### L 500.2500 ####[facility] [address] [place], [place], [id number] Urea nitrogen [Mass/Vol] 25 mg/dL High 4-19 [facility] Comment on above: Performed By: #### L 500.2500 ####[facility] [address] [place], [place], [id number] Bilirubin directOrdered By: Magdalene Driver on 10-03-2024 Bilirubin.direct [Mass/Vol] 0.29 mg/dL 0.00-0.30 [facility] Bilirubin, totalOrdered By: Magdalene Driver on 10-03-2024 Bilirubin [Mass/Vol] 0.60 mg/dL 0.00-1.30 [facility] Calculated very low density lipoprotein (VLDL) cholesterol measurementOrdered By: Magdalene Driver on 10-03-2024 Calculated very low density lipoprotein (VLDL) cholesterol measurement 16 mg/dL 5-40 [facility] Carbon dioxide, total [Moles /volume] in Central venous bloodOrdered By: Adalgisa Lee on 10-03-2024 CO2 [Moles/Vol] 23.3 mmol/L 21.0-32.0 [facility] Chloride assayOrdered By: Jarett Lee on 10-03-2024 Chloride [Moles/Vol] 104 mmol/L 98-108 [facility] Glomerular filtration rate ( GFR) estimation/1.73 sq m using serum, plasma, or whole bOrdered By: Adalgisa Lee on 10-03-2024 GFR/1.73 sq M.predicted among non-blacks MDRD (S/P/Bld) [Vol rate/Area] 85 mL/min/{1.73_m2} >60 [facility] Comment on above: mL/min/1.73m2 CKD-EP I Creatinine Equation (2021) LDL calc ser/plasOrdered By: Magdalene Driver on 10-03-2024 Cholesterol in LDL [Mass/Vol] 98 mg/dL [facility] Comment on above: Zajuscaxgx=454-762 m g/dL & Higher Xuar=385 mg/dL or greater Laboratory - Chemistry and C hemistry - challengeOrdered By: Magdalene Driver on 10-03-2024 AST [Catalytic activity/Vol] 30 U/L <38 [facility] Lipid Profileon 10-03-2024 CHOL:HDL 3.77 Normal [facility] Comment on above: Performed By: #### L 500.4100, L500.3400 ####[facility] [address] [place], [address] Cholesterol [Mass/Vol] 156 mg/dL Normal <=200 [facility] Comment on above: Result Comment: Chol esterol level, Desirable <200 mg/dL Borderline high cholesterol 200-239 mg/dL High cholesterol >=240 mg/dL Recommendations of the NCEP Adult Treatment Panel for the following risk-cutoff thresholds for the [place] population. Performed By: #### L 500.4100, L500.3400 ####[facility] [address] [place], [address] Cholesterol in HDL [Mass/Vol] 41 mg/dL Normal [facility] Comment on above: Result Comment: [place]att [place] Cholesterol Education Program (NCEP) guidelines: <40 mg/dL: Low HDL-cholesterol (major risk factor for CHD) >= 60 mg/dL: High HDL-cholesterol (negative risk factor for CHD) HDL-cholesterol is affected by a number of factors, e.g. smoking, exercise, hormones, sex and age. Performed By: #### L 500.4100, L500.3400 ####[facility] [address] [place], [address] Cholesterol in LDL [Mass/Vol] 98 mg/dL Normal [facility] Comment on above: Result Comment: Bord mtwvmm=394-877 mg/dL Higher Pxow=961 mg/dL or greater Performed By: #### L 500.4100, L500.3400 ####[facility] [address] [place], [address] Cholesterol in VLDL [Mass/Vol] 16 mg/dL Normal 5-40 [facility] Comment on above: Performed By: #### L 500.4100, L500.3400 ####[facility] [address] [place], [address] Triglyceride [Mass/Vol] 81 mg/dL Normal [facility] Comment on above: Result Comment: The drugs N-Acetylcysteine and Metamizole may falsely depress this assay. Normal range: <150 mg/dL Borderline High: 150-199 mg/dL High: 200-499 mg/dL Very High: >500 mg/dL Performed By: #### L 500.4100, L500.3400 ####[facility] [address] [place], [address] Liver Profileon 10-03-2024 Albumin [Mass/Vol] 4.3 g/dL Normal 3.4-4.8 [facility] Comment on above: Performed By: #### L 500.4100, L500.3400 ####[facility] [address] [place], [address] ALK PHOS 68 U/L Normal 40-129 [facility] Comment on above: Performed By: #### L 500.4100, L500.3400 ####[facility] [address] [place], [address] ALT [Catalytic activity/Vol] 31 U/L Normal <=46 [facility] Comment on above: Performed By: #### L 500.4100, L500.3400 ####[facility] [address] [place], [address] AST [Catalytic activity/Vol] 30 U/L Normal <=37 [facility] Comment on above: Performed By: #### L 500.4100, L500.3400 ####[facility] [address] [place], [address] Bilirubin [Mass/Vol] 0.60 mg/dL Normal 0.00-1.30 [facility] Comment on above: Performed By: #### L 500.4100, L500.3400 ####[facility] [address] [place], [address] Bilirubin.direct [Mass/Vol] 0.29 mg/dL Normal 0.00-0.30 [facility] Comment on above: Performed By: #### L 500.4100, L500.3400 ####[facility] [address] [place], [address] Globulin (S) [Mass/Vol] 2.5 g/dL Normal 2.2-4.2 [facility] Comment on above: Performed By: #### L 500.4100, L500.3400 ####[facility] [address] [place], [address] T PROT 6.8 g/dL Normal 5.9-8.4 [facility] Comment on above: Performed By: #### L 500.4100, L500.3400 ####[facility] [address] [place], [address] Potassium measurement (mass/ volume)Ordered By: Adalgisa Lee on 10-03-2024 Potassium (Unsp spec) [Mass/Vol] 3.6 mmol/L 3.3-5.1 [facility] Screening total cholesterol/ high density lipoprotein (HDL) cholesterol ratioOrdered By: Magdalene Driver on 10-03-2024 Cholesterol.total/Cho lesterol in HDL [Mass ratio] 3.77 {ratio} [facility] Serum creatinine measurement (mass/volume)Ordered By: Adalgisa Lee on 10-03-2024 Creatinine [Mass/Vol] 0.99 mg/dL 0.70-1.20 [facility] Serum globulin measurementOr dered By: Magdalene Driver on 10-03-2024 Globulin (S) [Mass/Vol] 2.5 g/dL 2.2-4.2 [facility] Serum glucose measurement (m ass/volume)Ordered By: Adalgisa eLe on 10-03-2024 Glucose [Mass/Vol] 126 mg/dL High 70-99 [facility] Serum or plasma alanine crowe otransferase (ALT) measurementOrdered By: Magdalene Driver on 10-03-2024 ALT [Catalytic activity/Vol] 31 U/L <47 [facility] Serum or plasma albumin martha urement (mass/volume)Ordered By: Magdalene Driver on 10-03-2024 Albumin [Mass/Vol] 4.3 g/dL 3.4-4.8 [facility] Serum or plasma alkaline filomena sphatase measurementOrdered By: Magdalene Driver on 10-03-2024 ALP [Catalytic activity/Vol] 68 U/L 40-129 [facility] Serum or plasma calcium martha urement (mass/volume)Ordered By: Adalgisa Lee on 10-03-2024 Calcium [Mass/Vol] 9.3 mg/dL 7.6-11.0 [facility] Serum or plasma cholesterol in HDL measurement (mass/volume)Ordered By: Magdalene Driver on 10-03-2024 Cholesterol in HDL [Mass/Vol] 41 mg/dL >40 [facility] Comment on above: National Cholesterol Education Program (NCEP) guidelines:<40 mg/dL: Low HDL-cholesterol (major risk factor for CHD)>= 60 mg/dL: High HDL-cholesterol (negative risk factor for CHD)HDL-cholesterol is affected by a number of factors, e.g. smoking, exercise, hormones, sex and age. Serum or plasma cholesterol measurement (mass/volume)Ordered By: Magdalene Driver on 10-03-2024 Cholesterol [Mass/Vol] 156 mg/dL <201 [facility] Comment on above: Cholesterol level, D esirable <200 mg/dLBorderline high cholesterol 200-239 mg/dLHigh cholesterol >=240 mg/dLRecommendations of the NCEP Adult Treatment Panel for the following risk-cutoff thresholds for the [place] population. Serum or plasma urea nitroge n measurement (mass/volume)Ordered By: Adalgisa Lee on 10-03-2024 Urea nitrogen [Mass/Vol] 25 mg/dL High 4-19 [facility] Sodium levelOrdered By: Abril Lee on 10-03-2024 Sodium [Moles/Vol] 139 mmol/L 133-145 [facility] Total proteinOrdered By: Sanchez sylvesterulisses Driver on 10-03-2024 Protein [Mass/Vol] 6.8 g/dL 5.9-8.4 [facility] Triglycerides measurementOrd ered By: Magdalene Driver on 10-03-2024 Triglyceride [Mass/Vol] 81 mg/dL <199 [facility] Comment on above: The drugs N-Acetylcy steine and Metamizole may falsely depress this assay. Normal range: <150 mg/dLBorderline High: 150-199 mg/dLHigh: 200-499 mg/dLVery High: >500 mg/dL Gastroenterology Visit Repor ton 09-10-2024 Gastroenterology Visit Report [facility] Gastroenterology [address] [place] [address] OFFICE VISIT Date of Service: 09/10/24 MR#: [id number] Acct: [id number] Name: SRINATH PEPE Rep #: [id number] : 1960 Provider: Dr. Jasson francois MD Age/Sex: 63/M [place] [facility] [place]: Signed Intake Vital Signs 05/13/24 08:36 07/22/24 11:05 09/10/24 08:19 Height 6 ft 4 in 6 ft 4 in 6 ft 4 in Weight: 251 lb BMI 30.5 BP 113/75 Respiration 16 Pulse 64 Pulse Oximetry (%) 94 Oxygen Delivery Method room air Intake Visit Reasons: 4 M FU Chief Complaint: Cirrhosis Impregnation Operator Required: No Is patient in pain?: No Allergies fluoxetine (From Prozac) Allergy (Verified 09/10/24 08:17) Hives sertraline Allergy (Verified 09/10/24 08:17) Rash doxazosin Adverse Reaction (Verified 09/10/24 08:17) Weakness oxycodone Adverse Reaction (Verified 09/10/24 08:17) HICCUPS Medications ???Medication ???Instructions ???Recorded ???Confirmed ???Type multivitamin (Multiple Vitamins 1 ea PO DAILY 09/29/16 09/10/24 Hi story tablet) rimegepant 75 mg disintegrating 75 mg PO ONCE PRN migraine headach e 10/26/21 09/10/24 History tablet (Nurtec ODT) sumatriptan succinate 100 mg tablet 100 mg PO ONCE PRN migraine 09/10/24 History headache cholecalciferol (vitamin D3) 125 125 mcg PO QDAY 02/29/24 09/10/24 History mcg (5,000 unit) tablet omeprazole 20 mg capsule,delayed 20 mg PO QDAY 02/29/24 09/10/24 Hi story release vitamin B complex 1 cap PO QDAY 02/29/24 09/10/24 Hi story tadalafil 20 mg tablet 20 mg PO DAILY PRN sexual activity 07/10/24 09/10/24 History amlodipine 10 mg tablet 10 mg PO QDAY #90 tabs 07/18/24 Rx carvedilol 25 mg tablet 25 mg PO BID #180 tabs 07/18/24 Rx coenzyme Q10 400 mg capsule 400 mg PO QDAY 07/18/24 09/10/24 H istory lactobacillus combination no.4 3 3,000 mmu cells PO QDAY 07/18/24 0 09/10/24 History billion cell capsule (Probiotic) valsartan 160 mg tablet 160 mg PO QDAY #90 tabs 07/18/24 0 09/10/24 Rx ezetimibe 10 mg tablet (Zetia) 10 mg PO QDAY #30 tabs 08/22/24 Rx Nurse's Note: No complaints. Has been feeling well. [facility] Medical History (Updated 09/10/24 @ 08:[address] Jasson Doan MD) CAD (coronary artery disease) Wears hearing aid Wears glasses Migraine headache Gastric reflux Non-smoker Palpitations Low back pain Dyslipidemia Urinary incontinence, functional Hypertension Erectile dysfunction Chronic migraine Prostate cancer Thrombocytopenia Alcohol abuse Arthritis Hiatal hernia GERD (gastroesophageal reflux disease) Alcoholic cirrhosis of liver Restless leg syndrome Surgical History History of hernia surgery History of esophagogastroduodenoscopy (EGD) History of colonoscopy History of vasectomy History of toe surgery History of radical prostatectomy History of total left knee replacement History of cholecystectomy Family History Mother Arthritis Hypertension Father CAD (coronary artery disease) Heart disease Brother Cancer Liver Other Alcoholism Social History Smoking Status: Never smoker alcohol intake: former year quit: 2008 substance use type: does not use caffeine: Yes Type: coffee Number of servings: 2 HPI HPI Chief Complaint: Cirrhosis Details: SRINATH PEPE, is a 63 M who presents to the office today for follow up. Previously established with Dr. Frye for chronic liver issues. PMH alcoholic cirrhosis of liver, history of alcohol ab use, thrombocytopenia d/t liver disease, GERD. Cessation of alcohol in 2008. Omeprazole taken for GERD, symptoms under control. He is working hard with diet and exercise to lose weight. Denies any family related primary liver pathology but is a brother from GB cancer metastasized to liver. 01.05.20 CT abdomen w/ contrast- liver is heterogenous with a micronodular contour consistent with given history of cirrhosis. No definite focal lesion identified. S/P cholecystectomy. Spleen heterogenous and enlarged. Portal vein measures 1.7 cm and appears patent. A subcentimeter RIGHT renal hypodensity is too small to accurately characterized but likely represents a cyst. A LEFT renal cycst is also shown. Small hiatal hernia. Atherosclerotic changes shown in the normal caliber aorta. Findings consistent with given history of cirrhosis with evidence of portal hypertension. 01.04.22 MRI abdomen w/wo contrast- Diffuse contour abnormality of liver consistent with cirrhotic changes. Severe splenomegaly. 11.20.22 US abdomen, Liver demonstrates heterogenous echogenicity with (more content not included)... Normal [facility] Absolute lymphocyte countOrd ered By: Jasson Doan on 09-01-2024 Lymphocytes Auto (Unsp spec) [#/Vol] 1.47 10*3/uL 0.83-4.51 [facility] Absolute neutrophil countOrd ered By: Jasson Doan on 09-01-2024 Neutrophils (Bld) [#/Vol] 3.1 10*3/uL 2.0-7.7 [facility] Anion gap in Serum or Plasma Ordered By: Jasson Doan on 09-01-2024 Anion gap [Moles/Vol] 11 mmol/L 5-15 [facility] Automated lymphocyte count a s percentage of total leukocytesOrdered By: Jassoncindy Doan on 09-01-2024 Lymphocytes/100 WBC Auto (Unsp spec) 28.4 % 19-41 [facility] BUN/creatinine ratioOrdered By: Jassonmiriam Doan on 09-01-2024 Urea nitrogen/Creatinine [Mass ratio] 27.7 mg/mg High 10-20 [facility] Basophil percentageOrdered B y: Jassonmiriam Doan on 09-01-2024 Basophils/100 WBC (Bld) 0.6 % 0-1 [facility] Bilirubin, totalOrdered By: Jassonmiriam Doan on 09-01-2024 Bilirubin [Mass/Vol] 0.89 mg/dL 0.00-1.30 [facility] CBC W/Diff, Automatedon 08-04 Absolute Lymph 1.47 X10 3/uL Normal 0.83-4.51 [facility] Comment on above: Performed By: #### L 500.4050, L500.4100, L100.0100, L300.3900 ####[facility] [address] [place], [address] Absolute Neut 3.1 X10 3/uL Normal 2.0-7.7 [facility] Comment on above: Performed By: #### L 500.4050, L500.4100, L100.0100, L300.3900 ####[facility] [address] [place], [address] Basophils/100 WBC (Bld) 0.6 % Normal 0-1 [facility] Comment on above: Performed By: #### L 500.4050, L500.4100, L100.0100, L300.3900 ####[facility] [address] [place], [address] Eosinophils/100 WBC (Bld) 1.5 % Normal 0-5 [facility] Comment on above: Performed By: #### L 500.4050, L500.4100, L100.0100, L300.3900 ####[facility] [address] [place], [address] Erythrocyte distribution width (RBC) [Ratio] 13.5 % Normal 11.6-14.6 [facility] Comment on above: Performed By: #### L 500.4050, L500.4100, L100.0100, L300.3900 ####[facility] [address] [place], [address] Hematocrit (Bld) [Volume fraction] 45.6 % Normal 40-54 [facility] Comment on above: Performed By: #### L 500.4050, L500.4100, L100.0100, L300.3900 ####[facility] [address] [place], [address] Hemoglobin (Bld) [Mass/Vol] 15.7 g/dL Normal 13.0-16.5 [facility] Comment on above: Performed By: #### L 500.4050, L500.4100, L100.0100, L300.3900 ####[facility] [address] [place], [address] IG% 0.200 Normal 0.0-0.9 [facility] Comment on above: Result Comment: IG% - Immature Granulocytes (promyelocytes, myelocytes and metamyelocytes) > 1% indicates that a LEFT SHIFT is Present. Performed By: #### L 500.4050, L500.4100, L100.0100, L300.3900 ####[facility] [address] [place], [address] Lymphocytes/100 WBC (Bld) 28.4 % Normal 19-41 [facility] Comment on above: Performed By: #### L 500.4050, L500.4100, L100.0100, L300.3900 ####[facility] [address] [place], [address] MCH (RBC) [Entitic mass] 29.3 pg Normal 27.0-32.0 [facility] Comment on above: Performed By: #### L 500.4050, L500.4100, L100.0100, L300.3900 ####[facility] [address] [place], [address] MCHC (RBC) [Mass/Vol] 34.4 g/dL Normal 32-36 [facility] Comment on above: Performed By: #### L 500.4050, L500.4100, L100.0100, L300.3900 ####[facility] [address] [place], [address] MCV (RBC) [Entitic vol] 85.1 fL Normal 80-94 [facility] Comment on above: Performed By: #### L 500.4050, L500.4100, L100.0100, L300.3900 ####[facility] [address] [place], [address] Monocytes/100 WBC (Bld) 10.3 % High 0-10 [facility] Comment on above: Performed By: #### L 500.4050, L500.4100, L100.0100, L300.3900 ####[facility] [address] [place], [address] Neutrophils/100 WBC (Bld) 59.0 % Normal 47-70 [facility] Comment on above: Performed By: #### L 500.4050, L500.4100, L100.0100, L300.3900 ####[facility] [address] [place], [address] Nucleated RBC (Bld) [#/Vol] 0 10*3/uL Normal 0-5 [facility] Comment on above: Performed By: #### L 500.4050, L500.4100, L100.0100, L300.3900 ####[facility] [address] [place], [address] Platelet mean volume (Bld) [Entitic vol] 10.6 fL Normal 6.2-12.0 [facility] Comment on above: Performed By: #### L 500.4050, L500.4100, L100.0100, L300.3900 ####[facility] [address] [place], [address] Platelets (Bld) [#/Vol] 112 10*3/uL Low 150-450 [facility] Comment on above: Performed By: #### L 500.4050, L500.4100, L100.0100, L300.3900 ####[facility] [address] [place], [address] RBC (Bld) [#/Vol] 5.36 10*6/uL Normal 4.6-6.2 [facility] Comment on above: Performed By: #### L 500.4050, L500.4100, L100.0100, L300.3900 ####[facility] [address] [place], [address] RDW SD 42.1 fl Normal 35.1-43.9 [facility] Comment on above: Performed By: #### L 500.4050, L500.4100, L100.0100, L300.3900 ####[facility] [address] [place], [address] WBC (Bld) [#/Vol] 5.2 10*3/uL Normal 4.4-11.0 [facility] Comment on above: Performed By: #### L 500.4050, L500.4100, L100.0100, L300.3900 ####[facility] [address] [place], [address] Calculated very low density lipoprotein (VLDL) cholesterol measurementOrdered By: Jasson Doan on 09-01-2024 Calculated very low density lipoprotein (VLDL) cholesterol measurement 15 mg/dL 5-40 [facility] VLDL Cholesterol 15 mg/dL 5-40 [facility] Carbon dioxide, total [Moles /volume] in Central venous bloodOrdered By: Jasson Doan on 09-01-2024 CO2 [Moles/Vol] 23.5 mmol/L 21.0-32.0 [facility] Chloride assayOrdered By: Meena Doan on 09-01-2024 Chloride [Moles/Vol] 105 mmol/L 98-108 [facility] Comprehensive Metabolic Prof ilon 09-01-2024 Albumin [Mass/Vol] 4.7 g/dL Normal 3.4-4.8 [facility] Comment on above: Performed By: #### L 500.4050, L500.4100, L100.0100, L300.3900 ####[facility] [address] [place], [address] Albumin/Globulin [Mass ratio] 1.7 {ratio} Normal 0.9-2.4 [facility] Comment on above: Performed By: #### L 500.4050, L500.4100, L100.0100, L300.3900 ####[facility] [address] [place], [address] ALK PHOS 71 U/L Normal 40-129 [facility] Comment on above: Performed By: #### L 500.4050, L500.4100, L100.0100, L300.3900 ####[facility] [address] [place], [address] ALT [Catalytic activity/Vol] 32 U/L Normal <=46 [facility] Comment on above: Performed By: #### L 500.4050, L500.4100, L100.0100, L300.3900 ####[facility] [address] [place], [address] AST [Catalytic activity/Vol] 32 U/L Normal <=37 [facility] Comment on above: Performed By: #### L 500.4050, L500.4100, L100.0100, L300.3900 ####[facility] [address] [place], [address] Bilirubin [Mass/Vol] 0.89 mg/dL Normal 0.00-1.30 [facility] Comment on above: Performed By: #### L 500.4050, L500.4100, L100.0100, L300.3900 ####[facility] [address] [place], [address] BUN/CRE 27.7 RATIO High 10-20 [facility] Comment on above: Performed By: #### L 500.4050, L500.4100, L100.0100, L300.3900 ####[facility] [address] [place], [address] Calcium [Mass/Vol] 9.5 mg/dL Normal 7.6-11.0 [facility] Comment on above: Performed By: #### L 500.4050, L500.4100, L100.0100, L300.3900 ####[facility] [address] [place], [address] Chloride [Moles/Vol] 105 mmol/L Normal 98-108 [facility] Comment on above: Performed By: #### L 500.4050, L500.4100, L100.0100, L300.3900 ####[facility] [address] [place], [address] CO2 [Moles/Vol] 23.5 mmol/L Normal 21.0-32.0 [facility] Comment on above: Performed By: #### L 500.4050, L500.4100, L100.0100, L300.3900 ####[facility] [address] [place], [address] Creatinine [Mass/Vol] 0.94 mg/dL Normal 0.70-1.20 [facility] Comment on above: Performed By: #### L 500.4050, L500.4100, L100.0100, L300.3900 ####[facility] [address] [place], [address] GAP 11 Normal 5-15 [facility] Comment on above: Performed By: #### L 500.4050, L500.4100, L100.0100, L300.3900 ####[facility] [address] [place], [address] GFR/1.73 sq M.predicted among non-blacks MDRD (S/P/Bld) [Vol rate/Area] 91 mL/min/{1.73_m2} Normal >60 [facility] Comment on above: Result Comment: mL/m in/1.73m2 CKD-EPI Creatinine Equation (2020) Performed By: #### L 500.4050, L500.4100, L100.0100, L300.3900 ####[facility] [address] [place], [address] Globulin (S) [Mass/Vol] 2.8 g/dL Normal 2.2-4.2 [facility] Comment on above: Performed By: #### L 500.4050, L500.4100, L100.0100, L300.3900 ####[facility] [address] [place], [address] Glucose [Mass/Vol] 97 mg/dL Normal 70-99 [facility] Comment on above: Performed By: #### L 500.4050, L500.4100, L100.0100, L300.3900 ####[facility] [address] [place], [address] Potassium [Moles/Vol] 4.0 mmol/L Normal 3.3-5.1 [facility] Comment on above: Performed By: #### L 500.4050, L500.4100, L100.0100, L300.3900 ####[facility] [address] [place], [address] Sodium [Moles/Vol] 139 mmol/L Normal 133-145 [facility] Comment on above: Performed By: #### L 500.4050, L500.4100, L100.0100, L300.3900 ####[facility] [address] [place], [address] T PROT 7.4 g/dL Normal 5.9-8.4 [facility] Comment on above: Performed By: #### L 500.4050, L500.4100, L100.0100, L300.3900 ####[facility] [address] [place], [address] Urea nitrogen [Mass/Vol] 26 mg/dL High 4-19 [facility] Comment on above: Performed By: #### L 500.4050, L500.4100, L100.0100, L300.3900 ####[facility] [address] [place], [address] Eosinophil percentageOrdered By: Jasson Doan on 09-01-2024 Eosinophils/100 WBC (Bld) 1.5 % 0-5 [facility] Erythrocyte distribution wid th (RBC) [Ratio]Ordered By: Jasson Doan on 09-01-2024 Erythrocyte distribution width (RBC) [Entitic vol] 42.1 fL 35.1-43.9 [facility] Erythrocyte distribution wid th ratioOrdered By: Jasson Doan on 09-01-2024 Erythrocyte distribution width (RBC) [Ratio] 13.5 % 11.6-14.6 [facility] Erythrocyte distribution wid th standard deviationOrdered By: Jasson Doan on 09-01-2024 Erythrocyte distribution width (RBC) [Ratio] 42.1 fl 35.1-43.9 [facility] GFR/1.73 sq M.predicted lu g non-blacks MDRD (S/P/Bld) [Vol rate/Area]Ordered By: Jasson Doan on 09-01-2024 Estimated GFR (MDRD) Non-Af Amer 91 >60 [facility] Comment on above: mL/min/1.73m2 CKD-EP I Creatinine Equation (2020) Glomerular filtration rate ( GFR) estimation/1.73 sq m using serum, plasma, or whole bOrdered By: Jasson Doan on 09-01-2024 GFR/1.73 sq M.predicted among non-blacks MDRD (S/P/Bld) [Vol rate/Area] 91 mL/min/{1.73_m2} >60 [facility] Comment on above: mL/min/1.73m2 CKD-EP I Creatinine Equation (2020) Hematocrit Auto (Bld) [Volum e fraction]Ordered By: Jasson Doan on 09-01-2024 Hematocrit (Bld) [Volume fraction] 45.6 % 40-54 [facility] Hemoglobin measurementOrdere d By: Jasson Doan on 09-01-2024 Hemoglobin (Bld) [Mass/Vol] 15.7 g/dL 13.0-16.5 [facility] Immature granulocytes/100 WB C Auto (Bld)Ordered By: Jasson Doan on 09-01-2024 Immature granulocytes/100 WBC (Bld) 0.200 % 0.0-0.9 [facility] Comment on above: IG% - Immature Granu locytes (promyelocytes, myelocytes and metamyelocytes) > 1% indicates that a LEFT SHIFT is Present. International normalized rat io (INR) calculationOrdered By: Jasson Doan on 09-01-2024 INR Coag (Bld) [Relative time] 1.1 {INR} [facility] LDL calc ser/plasOrdered By: Jasson Doan on 09-01-2024 Cholesterol in LDL [Mass/Vol] 119 mg/dL [facility] Comment on above: Mpnxjfjchk=902-546 m g/dL & Higher Tpwc=991 mg/dL or greater LDL Cholesterol, Calculated 119 mg/dL [facility] Comment on above: Goeoojxttt=590-435 m g/dL & Higher Nbvj=936 mg/dL or greater Laboratory - Chemistry and C hemistry - challengeOrdered By: Jasson Doan on 09-01-2024 AST [Catalytic activity/Vol] 32 U/L <38 [facility] Lipid Profileon 09-01-2024 CHOL:HDL 3.81 Normal [facility] Comment on above: Performed By: #### L 500.4050, L500.4100, L100.0100, L300.3900 ####[facility] [address] [place], [address] Cholesterol [Mass/Vol] 182 mg/dL Normal <=200 [facility] Comment on above: Result Comment: Chol esterol level, Desirable <200 mg/dL Borderline high cholesterol 200-239 mg/dL High cholesterol >=240 mg/dL Recommendations of the NCEP Adult Treatment Panel for the following risk-cutoff thresholds for the [place] population. Performed By: #### L 500.4050, L500.4100, L100.0100, L300.3900 ####[facility] [address] [place], [address] Cholesterol in HDL [Mass/Vol] 48 mg/dL Normal [facility] Comment on above: Result Comment: [place]att onal Cholesterol Education Program (NCEP) guidelines: <40 mg/dL: Low HDL-cholesterol (major risk factor for CHD) >= 60 mg/dL: High HDL-cholesterol (negative risk factor for CHD) HDL-cholesterol is affected by a number of factors, e.g. smoking, exercise, hormones, sex and age. Performed By: #### L 500.4050, L500.4100, L100.0100, L300.3900 ####[facility] [address] [place], [address] Cholesterol in LDL [Mass/Vol] 119 mg/dL Normal [facility] Comment on above: Result Comment: Bord oonobj=186-577 mg/dL Higher Nmjd=313 mg/dL or greater Performed By: #### L 500.4050, L500.4100, L100.0100, L300.3900 ####[facility] [address] [place], [address] Cholesterol in VLDL [Mass/Vol] 15 mg/dL Normal 5-40 [facility] Comment on above: Performed By: #### L 500.4050, L500.4100, L100.0100, L300.3900 ####[facility] [address] [place], [address] Triglyceride [Mass/Vol] 74 mg/dL Normal [facility] Comment on above: Result Comment: The drugs N-Acetylcysteine and Metamizole may falsely depress this assay. Normal range: <150 mg/dL Borderline High: 150-199 mg/dL High: 200-499 mg/dL Very High: >500 mg/dL Performed By: #### L 500.4050, L500.4100, L100.0100, L300.3900 ####[facility] [address] [place], [address] Lymphocytes Auto (Unsp spec) [#/Vol]Ordered By: Jasson Doan on 09-01-2024 Lymphocytes (Bld) [#/Vol] 1.47 10*3/uL 0.83-4.51 [facility] Lymphocytes/100 WBC Auto (Un sp spec)Ordered By: Jasson Doan on 09-01-2024 Lymphocytes/100 WBC (Bld) 28.4 % 19-41 [facility] MCV (mean corpuscular volume ) determinationOrdered By: Jasson Doan on 09-01-2024 MCV (RBC) [Entitic vol] 85.1 fL 80-94 [facility] Mean corpuscular hemoglobin (MCH) determinationOrdered By: Jasson Doan on 09-01-2024 MCH (RBC) [Entitic mass] 29.3 pg 27.0-32.0 [facility] Mean corpuscular hemoglobin concentration (MCHC) determinationOrdered By: Jasson Doan on 09-01-2024 MCHC (RBC) [Mass/Vol] 34.4 g/dL 32-36 [facility] Mean platelet volume determi nationOrdered By: Jasson Doan on 09-01-2024 Platelet mean volume (Bld) [Entitic vol] 10.6 fL 6.2-12.0 [facility] Monocyte percentageOrdered B y: Jasson Doan on 09-01-2024 Monocytes/100 WBC (Bld) 10.3 % High 0-10 [facility] Neutrophil percentageOrdered By: Jasson Doan on 09-01-2024 Neutrophils/100 WBC (Bld) 59.0 % 47-70 [facility] Nucleated red blood cell per centageOrdered By: Jasson Doan on 09-01-2024 Nucleated RBC/100 WBC (Bld) [Ratio] 0 % 0-5 [facility] Platelet countOrdered By: Meena Doan on 09-01-2024 Platelets (Bld) [#/Vol] 112 10*3/uL Low 150-450 [facility] Potassium (Unsp spec) [Mass/ Vol]Ordered By: Jasson Doan on 09-01-2024 Potassium [Moles/Vol] 4.0 mmol/L 3.3-5.1 [facility] Potassium measurement (mass/ volume)Ordered By: Jasson Doan on 09-01-2024 Potassium (Unsp spec) [Mass/Vol] 4.0 mmol/L 3.3-5.1 [facility] Prothrombin Time w/INRon INR Coag (PPP) [Relative time] 1.1 {INR} Normal [facility] Comment on above: Performed By: #### L 500.4050, L500.4100, L100.0100, L300.3900 ####[facility] [address] [place], [address] PT Coag (PPP) [Time] 14.7 s Normal 11.7-14.9 [facility] Comment on above: Performed By: #### L 500.4050, L500.4100, L100.0100, L300.3900 ####[facility] [address] [place], [address] Prothrombin timeOrdered By: Jasson Doan on 09-01-2024 PT Coag (PPP) [Time] 14.7 s 11.7-14.9 [facility] RBC Auto (Bld) [#/Vol]Ordere d By: Jasson Doan on 09-01-2024 RBC (Bld) [#/Vol] 5.36 10*6/uL 4.6-6.2 [facility] Screening total cholesterol/ high density lipoprotein (HDL) cholesterol ratioOrdered By: Jasson Doan on 09-01-2024 Cholesterol.total/Cho lesterol in HDL [Mass ratio] 3.81 {ratio} [facility] Serum creatinine measurement (mass/volume)Ordered By: Jasson Doan on 09-01-2024 Creatinine [Mass/Vol] 0.94 mg/dL 0.70-1.20 [facility] Serum globulin measurementOr dered By: Jasson Doan on 09-01-2024 Globulin (S) [Mass/Vol] 2.8 g/dL 2.2-4.2 [facility] Serum glucose measurement (m ass/volume)Ordered By: Jasson Doan on 09-01-2024 Glucose [Mass/Vol] 97 mg/dL 70-99 [facility] Serum or plasma alanine crowe otransferase (ALT) measurementOrdered By: Jasson Doan on 09-01-2024 ALT [Catalytic activity/Vol] 32 U/L <47 [facility] Serum or plasma albumin martha urement (mass/volume)Ordered By: aJsson Doan on 09-01-2024 Albumin [Mass/Vol] 4.7 g/dL 3.4-4.8 [facility] Serum or plasma albumin/glob ulin mass ratioOrdered By: Jasson Doan on 09-01-2024 Albumin/Globulin [Mass ratio] 1.7 {ratio} 0.9-2.4 [facility] Serum or plasma alkaline filomena sphatase measurementOrdered By: Jasson Doan on 09-01-2024 ALP [Catalytic activity/Vol] 71 U/L 40-129 [facility] Serum or plasma calcium martha urement (mass/volume)Ordered By: Jasson Doan on 09-01-2024 Calcium [Mass/Vol] 9.5 mg/dL 7.6-11.0 [facility] Serum or plasma cholesterol in HDL measurement (mass/volume)Ordered By: Jasson Doan on 09-01-2024 Cholesterol in HDL [Mass/Vol] 48 mg/dL >40 [facility] Comment on above: National Cholesterol Education Program (NCEP) guidelines:<40 mg/dL: Low HDL-cholesterol (major risk factor for CHD)>= 60 mg/dL: High HDL-cholesterol (negative risk factor for CHD)HDL-cholesterol is affected by a number of factors, e.g. smoking, exercise, hormones, sex and age. Serum or plasma cholesterol measurement (mass/volume)Ordered By: Jasson Doan on 09-01-2024 Cholesterol [Mass/Vol] 182 mg/dL <201 [facility] Comment on above: Cholesterol level, D esirable <200 mg/dLBorderline high cholesterol 200-239 mg/dLHigh cholesterol >=240 mg/dLRecommendations of the NCEP Adult Treatment Panel for the following risk-cutoff thresholds for the [place] population. Serum or plasma urea nitroge n measurement (mass/volume)Ordered By: Jasson Doan on 09-01-2024 Urea nitrogen [Mass/Vol] 26 mg/dL High 4-19 [facility] Sodium levelOrdered By: Sammie Doan on 09-01-2024 Sodium [Moles/Vol] 139 mmol/L 133-145 [facility] Total proteinOrdered By: Mariel Doan on 09-01-2024 Protein [Mass/Vol] 7.4 g/dL 5.9-8.4 [facility] Triglycerides measurementOrd ered By: Jasson Doan on 09-01-2024 Triglyceride [Mass/Vol] 74 mg/dL <199 [facility] Comment on above: The drugs N-Acetylcy steine and Metamizole may falsely depress this assay. Normal range: <150 mg/dLBorderline High: 150-199 mg/dLHigh: 200-499 mg/dLVery High: >500 mg/dL White blood cell (WBC) count Ordered By: Jasson Doan on 09-01-2024 WBC (Bld) [#/Vol] 5.2 10*3/uL 4.4-11.0 [facility] Echo Completeon 08-21-2024 Echo Complete [facility] [address] [place] [address] Echo Complete 08/21/24 1312 MR#: [id number] Acct: [id number] Name: SRINATH PEPE Rep #: [id number] : 1960 [id number] From: Jonathan Saleem MD Attending Dr: Dr. Jonathan Saleem MD Status: REG C Ordering Dr: Jonathan Saleem MD Date: 08/21/24 Location: [facility] Sex: M C Admitted: Reason For Study Reason For Study: HYPERTENSION Procedure This was a 2D Doppler, Color Flow transthoracic echocardiogram. Exam performed in department. Left Ventricle Normal LV size. Mild concentric left ventricular hypertrophy. Left ventricular systolic function is normal. The left ventricular ejection fraction is 60 %. No regional wall motion abnormalities noted. Right Ventricle Normal RV size. Normal systolic function. Atria Normal left atrium. Normal right atrium. Mitral Valve Normal mitral valve. Tricuspid Valve Normal tricuspid valve. Mild (1+) tricuspid valve insufficiency. Pulmonary artery systolic pressure is 27 mmHg. Aortic Valve Trisinus/trileaflet aortic valve. Pulmonic Valve Normal pulmonic valve. Great Vessels Normal aortic root. The pulmonary artery is normal size. Inferior vena cava collapse with respiration. Pericardium/Pleural No pericardial effusion. MMode/2D Measurements Calculations LVIDd: 5.7 cm IVSd: 1.2 cm Ao root diam: 4.0 cm LVIDs: 3.3 cm LVPWd: 1.2 cm FS: 41.1 % LAV(MOD-bp): 103.4 ml LVAd ap4: 39.7 cm2 LVAd ap2: 26.2 cm2 LAV(MOD-bp) Indexed: 42.8 ml/m2 LVLd ap4: 9.2 cm LVLd ap2: 8.3 cm LAV(MOD-sp2): 78.8 ml EDV(MOD-sp4): 137.5 ml EDV(MOD-sp2): 70.6 ml LAV(MOD-sp4): 123.3 ml EDV(sp4-el): 144.8 ml EDV(sp2-el): 70.4 ml LVAs ap4: 21.4 cm2 LVAs ap2: 15.2 cm2 LVLs ap4: 8.0 cm LVLs ap2: 7.3 cm ESV(MOD-sp4): 47.5 ml ESV(MOD-sp2): 27.5 ml ESV(sp4-el): 48.6 ml ESV(sp2-el): 26.8 ml EF(MOD-sp4): 65.4 % EF(MOD-sp2): 61.1 % EF(sp4-el): 66.5 % SV(MOD-sp4): 89.9 ml SV(MOD-sp2): 43.1 ml SV(sp4-el): 96.2 ml SI(MOD-sp4): 37.2 ml/m2 SI(MOD-sp2): 17.8 ml/m2 LA A4 area: 31.0 cm2 LA dimension(2D): 5.2 cm RA A4 area: 22.3 cm2 TAPSE: 2.9 cm Time Measurements MV dec time: 0.22 sec Doppler Measurements Calculations MV E max caleb: 77.8 cm/sec Lat Peak E' Caleb: 15.2 cm/sec Med Peak E' Caleb: 10.0 cm/sec MV A max caleb: 38.4 cm/sec E/E' lat: 5.1 E/E' med: 7.8 MV E/A: 2.0 MV V2 max: 84.9 cm/sec MV P1/2t max caleb: 84.2 cm/sec Ao V2 max: 103.8 cm/sec MV max P.9 mmHg MV P1/2t: 62.3 msec Ao max P.3 mmHg MV V2 mean: 38.3 cm/sec Ao V2 mean: 69.2 cm/sec MV mean P.71 mmHg MV dec slope: 395.5 cm/sec2 Ao mean P.1 mmHg MV V2 VTI: 24.2 cm MVA(P1/2t): 3.5 cm2 Ao V2 VTI: 24.4 cm AV (velocity ratio): 0.80 LV V1 max: 86.7 cm/sec PA V2 max: 93.0 cm/sec TR max caleb: 248.5 cm/sec LV V1 max P.0 mmHg TR max P.7 mmHg LV V1 mean P.5 mmHg LV V1 mean: 58.7 cm/sec LV V1 VTI: 19.6 cm ECHO/Echo Complete Interpretation Summary Normal LV size. Left ventricular systolic function is normal. The left ventricular ejection fraction is 60 %. Mild concentric left ventricular hypertrophy. Pulmonary artery systolic pressure is 27 mmHg. Ordering Physician: Jonathan Saleem Referring Physician: Kevon Mackey Performed By: Jessica Garcia RDCS, RVT 08/21/24 1444 Date Jonathan Saleem MD CC: Dr. Jonathan Saleem MD; Dr. Kevon Mackey, Date Dictated: 08/21/24 1312 Date Transcribed: 08/21/24 1444 Tax Consultant: Signed Normal [facility] Echocardiogram study reportO rdered By: Jonathan Saleem on 08-21-2024 Study report [facility] [address] [place] [address] Echo Complete 08/21/24 1312 MR#: [id number] Acct: [id number] Name: SRINATH PEPE Rep #:[id number] : 1960 63 From: Jonathan Francois Attending Dr: Dr. Jonathan Saleem MD S tatus: REG CLI Ordering Dr: Jonathan Saleem MD Date: Location: [facility] Sex: M C Admitted: Reason For Study Reason For Study: HYPERTENSION Procedure This was a 2D Doppler, Color Flow transthoracic echocardiogram. Exam performed in department. Left Ventricle Normal LV size. Mild concentric left ventricular hypertrophy. Left ventricular systolic function is normal. The left ventricular ejection fraction is 60 %. No regional wall motion abnormalities noted. Right Ventricle Normal RV size. Normal systolic function. Atria Normal left atrium. Normal right atrium. Mitral Valve Normal mitral valve. Tricuspid Valve Normal tricuspid valve. Mild (1+) tricuspid valve insufficiency. Pulmonary artery systolic pressure is 27 mmHg. Aortic Valve Trisinus/trileaflet aortic valve. Pulmonic Valve Normal pulmonic valve. Great Vessels Normal aortic root. The pulmonary artery is normal size. Inferior vena cava collapse with respiration. Pericardium/Pleural No pericardial effusion. MMode/2D Measurements & Calculations LVIDd: 5.7 cm IVSd: 1.2 cm Ao root diam: 4.0 cm LVIDs: 3.3 cm LVPWd: 1.2 cm FS: 41.1 % __ LAV(MOD-bp): 103.4 ml LVAd ap4: 39.7 cm2 LVAd ap2: 26.2 cm2 LAV(MOD-bp) Indexed: 42.8 ml/m2 LVLd ap4: 9.2 cm LVLd ap2: 8.3 cm LAV(MOD-sp2): 78.8 ml EDV(MOD-sp4): 137.5 ml EDV(MOD-sp2): 70.6 ml LAV(MOD-sp4): 123.3 ml EDV(sp4-el): 144.8 ml EDV(sp2-el): 70.4 ml LVAs ap4: 21.4 cm2 LVAs ap2: 15.2 cm2 LVLs ap4: 8.0 cm LVLs ap2: 7.3 cm ESV(MOD-sp4): 47.5 ml ESV(MOD-sp2): 27.5 ml ESV(sp4-el): 48.6 ml ESV(sp2-el): 26.8 ml EF(MOD-sp4): 65.4 % EF(MOD-sp2): 61.1 % EF(sp4-el): 66.5 % __ SV(MOD-sp4): 89.9 ml SV(MOD-sp2): 43.1 ml SV(sp4-el): 96.2 ml SI(MOD-sp4): 37.2 ml/m2 SI(MOD-sp2): 17.8 ml/m2 __ LA A4 area: 31.0 cm2 LA dimension(2D): 5.2 cm RA A4 area: 22.3 cm2 TAPSE: 2.9 cm Time Measurements MV dec time: 0.22 sec Doppler Measurements & Calculations MV E max caleb: 77.8 cm/sec Lat Peak E' Caleb: 15.2 cm/sec Med Peak E' Caleb: 10.0 cm/sec MV A max caleb: 38.4 cm/sec E/E' lat: 5.1 E/E' med: 7.8 MV E/A: 2.0 MV V2 max: 84.9 cm/sec MV P1/2t max caleb: 84.2 cm/sec Ao V2 max: 103.8 cm/sec MV max P.9 mmHg MV P1/2t: 62.3 msec Ao max P.3 mmHg MV V2 mean: 38.3 cm/sec Ao V2 mean: 69.2 cm/sec MV mean P.71 mmHg MV dec slope: 395.5 cm/sec2 Ao mean P.1 mmHg MV V2 VTI: 24.2 cm MVA(P1/2t): 3.5 cm2 Ao V2 VTI: 24.4 cm AV (velocity ratio): 0.80 __ LV V1 max: 86.7 cm/sec PA V2 max: 93.0 cm/sec TR max caleb: 248.5 cm/sec LV V1 max P.0 mmHg TR max P.7 mmHg LV V1 mean P.5 mmHg LV V1 mean: 58.7 cm/sec LV V1 VTI: 19.6 cm ECHO/Echo Complete Interpretation Summary Normal LV size. Left ventricular systolic function is normal. The left ventricular ejection fraction is 60 %. Mild concentric left ventricular hypertrophy. Pulmonary artery systolic pressure is 27 mmHg. Ordering Physician: Jonathan Saleem Referring Physician: Kevon Mackey Performed By: Jessica Garcia, RDCS, RVT 08/21/24 1444 Date _ Jonathan Saleem MD CC: Dr. Jonathan Saleem MD; Dr. Kevon Mackey DO ~ Date Dictated: 08/21/24 1312 Date Transcribed: 08/21/24 1444 Tax Consultant: Signed [facility] Work Phone: Coronary Angiography CTon Coronary Angiography CT [facility] Imaging Services [address] [place] [address] 08/18/24 0741 MR#: [id number] Acct: [id number] Name: SRINATH PEPE Rep #: [id number] : 1960 63 From: Jonathan Saleem MD PCP: Dr. Kevon Mackey DO Status:REG REF Y Location: CT Calcium Scoring Date of Study:: 08/12/24 Indications Indications: Hypertension hyperlipidemia Coronary Calcium Scoring: High-resolution Computed Tomographic imaging of the chest was performed on [08/12/2024], with particular attention paid to the coronary arteries. Images from the examination were analyzed for the presence and extent of coronary artery calcification , using coronary calcium quantification software. The patient tolerated the procedure well and there were no complications. The results of the coronary calcification analysis are provided below. Findings Coronary Artery Left Main (LM): 17.6 Left Anterior Descending (LAD): 221 Left Circumflex (LCX): 8 Right Coronary Artery (RCA): 38.7 Total Agatston Score: 285.3 Percentile Rankinth to 75th percentile Calcium Scoring Interpretation: Different methods to categorize the overall amount of coronary plaque. Overall amount CAC SIS Visual of coronary plaque P1 Mild -100 <2 1-2 vessels with mild amount of plaque P2 Moderate 101-300 3-4 1-2 vessels with moderate amount, 3 vessels with mild amount of plaque P3 Severe 301-999 5-7 3 vessels with moderate amount, 1 vessel with severe amount of plaque P4 Extensive >1000 >8 2-3 vessels with severe amount of plaque Calcium Score: Moderate: 1-2 vessels w/moderate amt, 3 vessels w/mild amt of plaque Conclusion: Moderate two-vessel plaque disease noted. 08/18/24 0742 Date Jonathan Saleem MD Cosigner Signature (if applicable): Date CC: Dr. Jonathan Saleem MD; Dr. Kevon Mackey DO Signed Normal [facility] Limited Chest CT Cardiac Onl yon 08-12-[address] Cardiac Only [facility] Imaging Services [address] [place] [id number] Cardiac Only MR#: [id number] Acct: [id number] Name: SRINATH PEPE Rep #: [id number] : 1960 M 63 From: Tam brady MD PCP: Dr. Kevon Mackey DO Status: REG REF Study: Limited Chest CT Cardiac Only Date of Exam: Exam# [id number] Ordering Dr: Jonathan Saleem MD PROCEDURE: LIMITED CHEST CT CARDIAC ONLY REASON FOR EXAM: HYPERLIDEMIA TECHNIQUE: Chest CT without intravenous contrast and 3D reconstructions. Abdomen and pelvis CT using the same contrast dose. COMPARISON: None. FINDINGS: CHEST: Lines and tubes: None. Mediastinum: Small benign-appearing mediastinal lymph nodes. Heart: Coronary artery calcification. Thoracic Aorta: No evidence of acute traumatic aortic injury. Lungs and Airways: The lungs are normally expanded and clear. Pleura: No pleural effusion. No pneumothorax. Bones: Degenerative changes of the spine. CT/Limited Chest CT Cardiac Only IMPRESSION: Coronary artery calcification. One or more dose reduction techniques were used (e.g., Automated exposure control, adjustment of the mA and/or kV according to patient size, use of iterative reconstruction technique). Reading Location: [facility] CC: Dr. Jonathan Saleem MD; Dr. Kevon Mackey DO Tax Consultant: Signed Normal [facility] EGD Reporton 07-22-2024 EGD Report [facility] Medical Records Department [address] [place] [address] EGD Report MR#: [id number] Acct: [id number] Name: SRINATH PEPE Rep #: [id number] : 1960 63 From: Bismark Montoya DO PCP: Dr. Kevon Mackey DO Status:REG [facility] Patient Name: Srinath Pepe Procedure Date: 07/22/2024 12:26 PM Date of : 1960 Age: 63 Procedure: Upper GI endoscopy Indications: Cirrhosis with suspected esophageal varices Providers: Bismark Montoya DO Referring MD: Kevon Mackey Do Medicines: Monitored Anesthesia Care Patient Profile: This is a 63 year old male. Refer to note in patient chart for documentation of history and physical. Patient has symptoms. Complications: No immediate complications. Procedure: Pre-Anesthesia Assessment: - Prior to the procedure, a History and Physical was performed, and patient medications and allergies were reviewed. The patient is competent. The risks and benefits of the procedure and the sedation options and risks were discussed with the patient. All questions were answered and informed consent was obtained. Patient identification and proposed procedure were verified by the physician in the pre-procedure area. Mental Status Examination: alert and oriented. Airway Examination: normal oropharyngeal airway and neck mobility. Respiratory Examination: clear to auscultation. CV Examination: normal. Prophylactic Antibiotics: The patient does not require prophylactic antibiotics. Prior Anticoagulants: The patient has taken no anticoagulant or antiplatelet agents except for NSAID medication. ASA Grade Assessment: III - A patient with severe systemic disease. After reviewing the risks and benefits, the patient was deemed in satisfactory condition to undergo the procedure. The anesthesia plan was to use monitored anesthesia care (MAC). Immediately prior to administration of medications, the patient was re-assessed for adequacy to receive sedatives. The heart rate, respiratory rate, oxygen saturations, blood pressure, adequacy of pulmonary ventilation, and response to care were monitored throughout the procedure. The physical status of the patient was re-assessed after the procedure. After obtaining informed consent, the endoscope was passed under direct vision. Throughout the procedure, the patient's blood pressure, pulse, and oxygen saturations were monitored continuously. The Endoscope was introduced through the mouth, and advanced to the second part of duodenum. The upper GI endoscopy was accomplished without difficulty. The patient tolerated the procedure well. Scope In: 12:35:02 PM Scope Out: 12:43:20 PM Total Procedure Duration Time 0 hours 8 minutes 18 seconds Findings: Grade II varices were found in the middle third of the esophagus and in the lower third of the esophagus. They were 10 mm in largest diameter. Three bands were successfully placed with incomplete eradication of varices. There was no bleeding during and at the end of the procedure. Severe portal hypertensive gastropathy was found in the entire examined stomach. Biopsies were taken with a cold forceps for histology. Verification of patient identification for the specimen was done. Estimated blood loss was minimal. No gross lesions were noted in the first portion of the duodenum. Impression: - Grade II esophageal varices. Incompletely eradicated. Banded. - Portal hypertensive gastropathy. Biopsied. - No gross lesions in the first portion of the duodenum. Recommendation: - Discharge patient to home. - Full liquid diet today. - Continue present medications. - Await pathology results. - Repeat upper endoscopy in 3 months for retreatment. Procedure Code(s): --- Professional --- 56871, Esophagogastroduodenoscopy , flexible, transoral; with band ligation of esophageal/gastric varices 67212, Esophagogastroduodenoscopy , flexible, transoral; with biopsy, single or multiple CPT copyright 2021 [employer]. All rights reserved. The codes documented in this report are preliminary and upon social work assistant review may be revised to meet current compliance requirements. Bismark Montoya DO 07/22/2024 12:50:14 PM This report has been signed electronically. Number of Addenda: 0 Note Initiated On: 07/22/2024 12:26 PM 07/22/24 1250 Date Bismark Montoya DO Cosigner Signature: Date (if indicated) CC: Dr. Kevon Mackey DO; Bismark Montoya DO Date Dictated: 07/22/24 1226 Date Transcribed: Tax Consultant: VOLODYMYR Signed Normal [facility] H Pylori (initial)on H Pylori (initial) ------ Patient Age/Sex Location Account Attending Physician SRINATH PEPE/Wally EN [id number] Bismark Montoya DO Specimen: [id number] Received: 07/23/24 Status: PAPA Baum Num: [id number] Spec Type: IMMUNO Subm Dr: Bismark Montoya DO PHYSICIAN INSTITUTION [address] [address] SPECIMEN INFORMATION: Tissue Source: Gastric body biopsy Clinical Info: Alcoholic cirrhosis of liver, dyslipidemia Specimen Number: [id number] CPT code: 60925 METHODOLOGY: Deparaffinized sections of prefer/formalin-fixed tissue or PAP/DQ stained slides are incubated with monoclonal/polyclonal antibodies/oligonucleotide probes. Localization is made via biotin free immunoperoxidase method. Appropriate controls are performed and reacted as expected. Results on target cell population are indicated in the following table: RESULTS: ANTIBODY / CLONE RESULT H Pylori (polyclonal) negative These tests were developed and their performance characteristics determined by [facility]. They may not have been cleared or approved by the U.S. Food and Drug Administration. The FDA has determined that such clearance or approval is not necessary. The above immunohistochemical/dualIS H markers are ordered and reviewed by the Pathologist. INTERPRETATION: Gastric body, biopsy: Negative for Helicobacter pylori organisms. 07/24/2024 Signed (signature on file) Dr. Vipin Caruso MD 07/24/24 1359 Normal [facility] Comment on above: Performed By: #### P H.PYLORI ####[facility] [id number] [facility] [place], [place], [id number] MR/POSTOP.Hero 07-22-2024 MR/POSTOP.TARUN [facility] Medical Records Department [address] [place] [address] Anesthesia Postop Eval I 07/22/24 1253 MR#: [id number] Acct: [id number] Name: SRINATH PEPE YANNI Rep #: [id number] : 1960 63 From: Tom Lara PCP: Dr. Kevon Mackey, DO Status:[facility] Y Race: C Location: [place] [address] Anesthesia: Postop Eval I Current Vital Signs Temperature: 97.1 F Pulse Rate: 70 Blood Pressure: 142/99 Respiratory Rate: 16 Pulse Ox: 96 Oxygen Delivery Method: Room Air Assessment Airway patent: Yes Spontaneous unlabored respirations: Yes Mental status: Asleep nausea: No Vomiting: No Anesthesia Complication: No Fluid Hydration Crystalloid volume administer (ml): 30 Total IV fluid infused: 30 Progress Note Anesthesia document: Postop Eval 1 completed: Yes 07/22/24 1254 Date Tom Barlow Signature: Date CC: Signed Normal [facility] MR/PHMQUEJJ3cl 07-22-2024 [facility] Medical Records Department [address] [place] [address] Anesthesia Postop Eval II 07/22/24 1409 MR#: [id number] Acct: [id number] Name: SRINATH PEPE YANNI Rep #: [id number] : 1960 63 From: Roby Maki MD PCP: Dr. Kevon Mackey, DO Status:[facility] Y Race: C Location: EN Anesthesia Postop Eval I Sum Postop Eval Completion status Anesthesia document: Postop Eval 1 completed: Yes Anesthesia Postop Eval I Summary Anesthesia Postop Eval I Summary: Anesthesia Postop Eval I: Assessment Summary Airway patent Yes 07/22/24 12:54 [email or web address] Spontaneous unlabored Yes 07/22/24 12:54 [email or web address] respirations Mental status Asleep 07/22/24 12:54 [email or web address] nausea No 07/22/24 12:54 [email or web address] Vomiting No 07/22/24 12:54 [email or web address] Anesthesia Postop Eval I: Fluid Summary Crystalloid volume administer 30 07/22/24 12:54 [email or web address] (ml) Colloids volume administered ( ml) Blood Product volume administered (ml) Total IV fluid infused 30 07/22/24 12:54 [email or web address] Anesthesia Postop Eval I: Summary Notes Anesthesia Complication No 07/22/24 12:54 [email or web address] Anesthesia Complication Comment: Post-operative progress note Anesthesia: Postop Eval II Evaluation Mental status: Awake and Calm Pain Level: 0 nausea: No Vomiting: No Complications Anesthesia Complication: No 07/22/24 1410 Date Roby Greenwooder Signature: Date CC: Signed Normal [facility] Surgery Specimen Level Nancie 07-22-2024 Surgery Specimen Level IV Patient Age/Sex Location Account Attending Physician SRINATH PEPE 63/M EN [id number] Bismark Montoya DO Specimen: [id number] Received: 07/22/24 Status: PAPA aBum Num: [id number] Spec Type: EGD BIOPSY Subm Dr: Bismark Montoya DO HEADER OPERATION: EGD, biopsy, banding PRE-OP DIAGNOSIS: Alcoholic cirrhosis of liver, dyslipidemia TISSUE SUBMITTED: Gastric body biopsy MICROSCOPIC DIAGNOSIS Gastric body, biopsy: Mild gastritis. See microscopic description and comment. 07/24/2024 COMMENT The results of immunohistochemistry for Helicobacter pylori will be reported separately ([id number]). MICROSCOPIC DESCRIPTION Slides are reviewed. The specimen shows fragments of gastric mucosa with chronic inflammatory cell infiltrates in the lamina propria consisting of lymphocytes and plasma cells, consistent with mild chronic gastritis. Focal mucosal congestion is also noted. GROSS DESCRIPTION Received in fixative is one container labeled with the patient's name and designated Gastric body biopsy. The specimen consists of two irregular fragments of light mclain soft tissue that in aggregate measure 1 x 0.5 x 0.1 cm. The specimen is totally submitted in one cassette. 07/23/2024 TC:3 CPT:22183 Patient Age/Sex Location Account Attending Physician SRINATH PEPE 63/M EN [id number] Bismark Montoya DO Signed (signature on file) Dr. Vipin Caruso MD 07/24/24 121 Normal [facility] Comment on above: Performed By: #### P SUIV #### [facility] [address] [place], [place], [address] 12 Lead EKG performed by [facility] on 07-18-2024 12 Lead EKG performed by [facility] [address] [place] [address] 12 Lead EKG performed by [facility] 07/18/24 1333 MR#: [id number] Acct: [id number] Name: SRINATH PEPE Rep #: [id number] : 1960 63 From: Jonathan Saleem MD Attending Dr: Dr. Jonathan Saleem MD Status: DEP A MB Ordering Dr: Jonathan Saleem MD Date: 07/18/24 Location: [facility] Sex: M C Admitted: BMS/12 Lead EKG performed by [facility] ECG Report Interpretation Marked sinus Bradycardia BORDERLINE RHYTHMElectronically signed on 07/21/2024 at 08:07 by Jonathan Saleem [employer] Version [id number] 07/21/24 0812 Date Jonathan Saleem MD CC: Dr. Kevon Mackey DO Date Dictated: 07/18/24 1333 Date Transcribed: 07/18/241332 Tax Consultant: [place] Signed Normal [facility] Cardiology Visit Reporton Cardiology Visit Report [facility] [address] [place] [address] OFFICE VISIT Date of Service: 07/18/24 MR#: [id number] Acct: [id number] Name: SRINATH PEPE YANNI Rep #: [id number] : 1960 Provider: Dr. Jonathan Saleem MD Age/Sex: 63/M Location: [facility] Status: Signed HPI HPI History of Present Illness Details: 63-year-old man with a history of hypertension who presents here for an evaluation of his blood pressure as well as optimization of care. He does have a history of previous cirrhosis of the liver as well and has been on medication. He did undergo an echocardiographic evaluation in [facility] in 2021 and at that time he was noted to have preserved ejection fraction mild LVH. He has had no chest pain no shortness of breath no paroxysmal nocturnal dyspnea pedal edema he is very active he goes to the gym a few times a week. He has had no neck arm or jaw discomfort suggest angina his physical exam today is unremarkable. His electrocardiogram demonstrates sinus bradycardia with a rate of 49 bpm. Intake Vital Signs 05/13/24 08:36 07/18/24 13:34 Height 6 ft 4 in 6 ft 4 in Weight: 244 lb 246 lb BMI 29.7 29.9 BP 145/86 H 182/98 H Blood Pressure Location Lt brachial Lt brachial Position Sitting Sitting Respiration 16 Pulse 60 79 Pulse Source NIBP Pulse Oximetry (%) 95 Oxygen Delivery Method room air Intake Visit Reasons: EST (SELF) Impregnation Operator Required: No Is patient in pain?: No Allergies fluoxetine (From [employer]) Allergy (Verified 07/18/24 13:37) Hives sertraline Allergy (Verified 07/18/24 13:37) Rash doxazosin Adverse Reaction (Verified 07/18/24 13:37) Weakness oxycodone Adverse Reaction (Verified 07/18/24 13:37) HICCUPS Medications ???Medication ???Instructions ???Recorded ???Confirmed ???Type multivitamin (Multiple Vitamins 1 ea PO DAILY 09/29/16 07/18/24 Hi story tablet) rimegepant 75 mg disintegrating 75 mg PO ONCE PRN migraine headach e 10/26/21 07/18/24 History tablet (Nurtec ODT) sumatriptan succinate 100 mg tablet 100 mg PO ONCE PRN migraine 07/18/24 History headache cholecalciferol (vitamin D3) 125 125 mcg PO QDAY 02/29/24 07/18/24 History mcg (5,000 unit) tablet omeprazole 20 mg capsule,delayed 20 mg PO QDAY 02/29/24 07/18/24 Hi story release vitamin B complex 1 cap PO QDAY 02/29/24 07/18/24 Hi story tadalafil 20 mg tablet 20 mg PO DAILY PRN sexual activity 07/10/24 07/18/24 History amlodipine 10 mg tablet 10 mg PO QDAY #90 tabs 07/18/24 Rx carvedilol 25 mg tablet 25 mg PO BID #180 tabs 07/18/24 Rx coenzyme Q10 400 mg capsule 400 mg PO QDAY 07/18/24 07/18/24 H istory lactobacillus combination no.4 3 3,000 mmu cells PO QDAY 07/18/24 0 07/18/24 History billion cell capsule (Probiotic) valsartan 160 mg tablet 160 mg PO QDAY #90 tabs 07/18/24 0 07/18/24 Rx Ejection fraction %: 60 Have you fallen in the past year?: No PFSH Medical History (Updated 07/17/24 @ 15:02 by Gladys Dietz) Wears hearing aid Wears glasses Cirrhosis Migraine headache Gastric reflux Non-smoker Palpitations Low back pain Dyslipidemia Urinary incontinence, functional Hypertension Erectile dysfunction Chronic migraine Prostate cancer Thrombocytopenia Alcohol abuse Arthritis Hiatal hernia GERD (gastroesophageal reflux disease) Alcoholic cirrhosis of liver Restless leg syndrome Surgical History (Updated 07/18/24 @ 13:42 by Jennifer Bernal) History of hernia surgery History of esophagogastroduodenoscopy (EGD) History of colonoscopy History of vasectomy History of toe surgery History of radical prostatectomy History of total left knee replacement History of cholecystectomy Family History Mother Arthritis Hypertension Father CAD (coronary artery disease) Heart disease Brother Cancer Liver Other Alcoholism Social History (Updated 07/18/24 @ 13:44 by Jennifer Bernal) Smoking Status: Never smoker alcohol intake: former year quit: 2008 substance use type: does not use caffeine: Yes Type: coffee Number of servings: 2 ROS Const Const: Negative for fatigue or weakness Eyes Eyes: Negative for change in vision ENT ENT: Negative for dizziness or balance problems Cardio Chest Pain: No Palpitations: No Edema: None Resp Respiratory: Negative for SOB with activity, SOB at rest or SOB orthopnea SOB lying down GI GI: Negative nausea or heartburn Musc Musc: Negative for balance problems Neuro Neuro: Negative for dizziness, lightheadedness, near syncope, syncope or weakness Endo Endo: Negative for fatigue Supplemental Info Supplemental Information Echocardiogram 04/14/22 ([facility]) Summary L (more content not included)... Normal [facility] MR/Mykel 07-17-2024 MR/TAYLER [facility] Medical Records Department [address] [place] [address] PAT - Anesthesia 07/17/24 1700 MR#: [id number] Acct: [id number] Name: SRINATH PEPE Rep #: [id number] : 1960 63 From: Roby Maki MD PCP: Dr. 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 When Was Last Pacemaker Check QUESTION #4 FULL TEXT: You/Your Family Experience fever (hyperthermia) with Anesthesia Last Oral Intake Last Oral intake: Last Oral Intake NPO since Meds taken in AM with sips of water? Meds patient instructed to take am of surgery PONV PONV - sales representative electric service: PONV - sales representative electric service Female No 07/17/24 14:55 HX of Motion Sickness No 07/17/24 14:55 HX of N/V After Surgery No 07/17/24 14:55 Non-Smoker Yes 07/17/24 14:55 Duration of Surgery greater No 07/17/24 14:55 than 60 minutes Number of Risk Factors 1 07/17/24 14:55 PONV Score Low Risk 07/17/24 14:55 Height Weight Height Weight: Anesthesia: Height Weight Height 6 ft 4 in 05/13/24 08:36 Respiratory Assessment Respiratory Assessment - sales representative electric service: Respiratory Tract Infection Hx - sales representative electric service Hx Respiratory Tract Infection No 07/17/24 14:55 STOP Sleep Apnea STOP Sleep Apnea - sales representative electric service: STOP Sleep Apnea - sales representative electric service Hx Hypertension Yes: ON MEDS/NOT ALWAYS 07/17/24 14:55 CONTROLLED Hx Sleep Apnea No 07/17/24 14:55 CPAP No 07/17/24 14:55 BIPAP Do you snore loudly (louder No 07/17/24 14:55 than talking or can be heard Do you often feel tired/ No 07/17/24 14:55 fatigued/ sleepy during daytime? Has anyone observed you stop No 07/17/24 14:55 breathing during sleep? STOP Results Negative 07/17/24 14:55 QUESTION #5 FULL TEXT : Do you snore loudly (louder than talking or can be heard through closed doors)? Tobacco Use History Tobacco Use History - sales representative electric service: Tobacco Use History - sales representative electric service Tobacco Use Smoking Status Never smoker 07/17/24 14:55 Hx Tobacco Use No 07/17/24 14:55 Years Smoking Packs Smoked per Day Smoking Cessation Date was within the last 15 years Hx Smoking Cessation Date Hx Smoking Cessation Counseling Hematologic Medial History Hematologic Hx - sales representative electric service: Hematologic Medical Hx - adjutant general Hx of Blood Transfusion No 07/17/24 14:55 Hx of Transfusion in last 3 No 07/17/24 14:55 Months Date of Last Transfusion (if within last 3 months) Ever experience any problems No 07/17/24 14:55 with transfusion(s)? Specify any problems Hx of Preganancy in last 3 N/A 07/17/24 14:55 Months Nurse Filling Out Transfusion [place] 07/17/24 14:55 Questions: Date: 07/17/24 07/17/24 14:55 Time: 14:57 07/17/24 14:55 Patient unable to answer at this time (ie. confused, unrespo /Reproduction History /Reproductive History - sales representative electric service: /Reproductive Hx- sales representative electric service Hx Now Gestational Age (in weeks): EDC: Hx Hx Para Hx Section [facility] Medical History (Updated 07/17/24 @ 15:02 by Gladys Dietz) Wears hearing aid Wears glasses Cirrhosis Migraine headache Gastric reflux Non-smoker Palpitations Low back pain Dyslipidemia Urinary incontinence, functional Hypertension Erectile dysfunction Chronic migraine Prostate cancer Thrombocytopenia Alcohol abuse Arthritis Hiatal hernia GERD (gastroesophageal reflux disease) Alcoholic cirrhosis of liver Restless leg syndrome Home Medications ???Medication ???Instructions ???Recorded ???Last Taken ???Type multivitamin (Multiple Vitamins 1 ea PO DAILY 09/29/16 Unknown His tory tablet) coenzyme Q10 75 mg capsule (Ultra 400 mg PO DAILY 10/26/21 Unknown History CoQ10) rimegepant 75 mg disintegrating 75 mg PO ONCE PRN migraine headach e 10/26/21 Unknown History tablet (Nurtec ODT) sumatriptan succinate 100 mg tablet 100 mg PO ONCE PRN migraine Unknown History headache carvedilol 6.25 mg (more content not included)... Normal [facility] ABD Limited w/ Elastographyo n 06-13-2024 ABD Limited w/ Elastography [facility] Imaging Services [address] [place] [address] ABD Limited w/ Elastography MR#: [id number] Acct: [id number] Name: SRINATH PEPE Rep #: [id number] : 1960 M 63 From: Tam brady MD PCP: Dr. Kevon Mackey, DO Status: REG CLI Study: ABD Limited w/ Elastography Date of Exam: 06/04 Exam# [id number] Ordering Dr: Jasson Doan MD [id number] STUDY: ABDOMINAL ULTRASOUND - RIGHT UPPER QUADRANT; ELASTOGRAPHY REASON FOR VISIT: Male, 63 years old. Cirrhosis. TECHNIQUE: Ultrasound evaluation of the right upper quadrant was performed with real-time and static corado-scale imaging. Point quantification shear wave elastography was performed ([employer]). TECHNICAL QUALITY: Adequate. COMPARISON: Comparison is made with prior study September 24, 2020. FINDINGS: Liver: The liver measures 16.7 cm. There is a heterogeneous echogenicity of the liver. The bile ducts are within normal limits. There is hepatic color flow. The direction of portal flow is hepatopetal. There is no demonstrated mass lesion. Median liver stiffness measured 13.2 kPa. Gallbladder: The patient is status post cholecystectomy. Common Bile Duct (C.B.D.): The common bile duct measures 4 mm. Pancreas: The pancreas is not visualized due to overlying bowel gas. Right Kidney: Normal size of the right kidney. The right kidney measures 12 cm x 6.1 cm x 6.4 cm. Normal renal cortex. The right cortex measures 1.6 cm. There is no demonstrated renal mass or cyst. There is no right hydronephrosis. IMPRESSION: 1. Liver stiffness measures 13.2 kPa compatible with F3-F4 (Moderate to severe liver fibrosis) Metavir score. Electronically Signed: Tam Valdez MD at 13:22 EST , [id number] STUDY: ABDOMINAL ULTRASOUND - LEFT UPPER QUADRANT REASON FOR EXAM: Male, 63 years old. CIRRHOSIS -- including spleen, R/O ascites TECHNIQUE: Transabdominal ultrasound was performed with real-time and static corado scale imaging. TECHNICAL QUALITY: Adequate. COMPARISON: None. FINDINGS: Spleen: There is splenomegaly. The spleen measures 17.2 cm x 9.8 cm x 6.8 cm. US/ABD Limited w/ Elastography IMPRESSION: Splenomegaly. Electronically Signed: Tam Valdez MD at 13:22 EST , CC: Dr. Jasson Doan MD; Dr. Kevon Mackey DO Tax Consultant: Signed Normal [facility] Gastroenterology Visit Repor ton 05-13-2024 Gastroenterology Visit Report [facility] Gastroenterology [address] [place] [address] OFFICE VISIT Date of Service: 05/13/24 MR#: [id number] Acct: [id number] Name: SRINATH PEPE Rep #: [id number] : 1960 Provider: Dr. Jasson francois MD Age/Sex: 63/M [place] [facility] [place]: Signed with Addenda ADDENDUM by Dr. Jasson Doan MD on 05/13/24 at 0918 HPI Details: SRINATH PEPE, is a 63 M who presents to the office today for Addendum Follow-up in 4 months. 05/13/24 0918 Date Jasson Doan MD cc: Dr. Kevon Mackey, DO * Signed Intake Vital Signs 02/29/24 08:29 02/29/24 09:30 05/13/24 08:36 Height 6 ft 4 in 6 ft 4 in 6 ft 4 in Weight: 243 lb 244 lb BMI 29.5 29.7 BP 156/86 H 145/86 H Blood Pressure Location Lt brachial Lt brachial Position Sitting Sitting Respiration 16 Pulse 56 L 60 Pulse Source Monitor Temp 98.0 F Temp Source Temporal Pulse Oximetry (%) 96 95 Oxygen Delivery Method room air room air Intake Visit Reasons: 3 M FU Chief Complaint: Cirrhosis Allergies fluoxetine (From Prozac) Allergy (Verified 05/13/24 08:38) Hives sertraline Allergy (Verified 05/13/24 08:38) Rash doxazosin Adverse Reaction (Verified 05/13/24 08:38) Weakness oxycodone Adverse Reaction (Verified 05/13/24 08:38) HICCUPS Medications ???Medication ???Instructions ???Recorded ???Confirmed ???Type multivitamin (Multiple Vitamins 1 ea PO DAILY 09/29/16 05/13/24 History tablet) coenzyme Q10 75 mg capsule (Ultra 400 mg PO DAILY 10/26/21 05/13/24 History CoQ10) rimegepant 75 mg disintegrating 75 mg PO ONCE PRN 10/26/21 05/13/24 History tablet (Nurtec ODT) sumatriptan succinate 100 mg tablet 100 mg PO ONCE PRN 10/26/21 05/13/24 History carvedilol 6.25 mg tablet 6.25 mg PO BID 02/29/24 05/13/24 History cholecalciferol (vitamin D3) 125 125 mcg PO QDAY 02/29/24 05/13/24 History mcg (5,000 unit) tablet omeprazole 20 mg capsule,delayed 20 mg PO QDAY 02/29/24 05/13/24 History release valsartan 80 mg tablet 80 mg PO QDAY 02/29/24 05/13/24 History verapamil 180 mg tablet,extended 180 mg PO BID 02/29/24 05/13/24 History release vitamin B complex 1 cap PO QDAY 02/29/24 05/13/24 History PFSH Medical History Urinary incontinence, functional Hypertension Erectile dysfunction Chronic migraine Prostate cancer Thrombocytopenia Alcohol abuse Surgical History History of vasectomy History of toe surgery History of prostate biopsy History of radical prostatectomy History of total left knee replacement H/O prostatectomy History of cholecystectomy Family History Mother Arthritis Hypertension Father CAD (coronary artery disease) Heart disease Brother Cancer Liver Other Alcoholism Social History Smoking Status: Never smoker alcohol intake: former year quit: 2008 substance use type: does not use HPI HPI Chief Complaint: Cirrhosis Details: SRINATH PEPE, is a 63 M who presents to the office today for follow up. Previously established with Dr. Frye for chronic liver issues. PMH alcoholic cirrhosis of liver, history of alcohol abuse, thrombocytopenia d/t liver disease, GERD. Cessation of alcohol in 2008. Omeprazole taken for GERD, symptoms under control. He is working hard with diet and exercise to lose weight. Denies any family related primary liver pathology but is a brother from GB cancer metastasized to liver. 01.05.20 CT abdomen w/ contrast- liver is heterogenous with a micronodular contour consistent with given history of cirrhosis. No definite focal lesion identified. S/P cholecystectomy. Spleen heterogenous and enlarged. Portal vein measures 1.7 cm and appears patent. A subcentimeter RIGHT renal hypodensity is too small to accurately characterized but likely represents a cyst. A LEFT renal cycst is also shown. Small hiatal hernia. Atherosclerotic changes shown in the normal caliber aorta. Findings consistent with given history of cirrhosis with evidence of portal hypertension. 01.04.22 MRI abdomen w/wo contrast- Diffuse contour abnormality of liver consistent with cirrhotic changes. Severe splenomegaly. 11.20.22 US abdomen, Liver demonstrates heterogenous echogenicity with a lobulated border. A left renal cyst measures 2.6 x 2.8 x 2.3 cm. Spleen enlarged measures 17.8 x17.9 x 5.7. EGD, trace esophageal varices. No acute complaint. Patient quit alcohol about 15 years ago in 2008. 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 Kuo till now. Last blood work from January 2023 a (more content not included)... Normal [facility] AFP, Tumor Markeron 03-06-20 24 AFP TUMOR NERIS 4.6 ng/mL Normal 0.0-8.4 [facility] Comment on above: Order Comment: Test( s) [id number]-Risded, Serum or Plasmawas developed and its performance characteristicsdetermined by [employer]. It has not been cleared or approvedby the Food and Drug Administration.YN Result Comment: [employer] Electrochemiluminescence Immunoassay (ECLIA) Values obtained with different assay methods or kits cannot be used interchangeably. Results cannot be interpreted as absolute evidence of the presence or absence of malignant disease. This test is not interpretable in females. Performed By: #### L 500.4050, L7000.7000, L3100.6900, L503.5510, L503.6030, L3000.0375, L506.1000, L3100.5450, L3100.3425, L3100.1850, L3100.5440, L3890.6005, L3200.1100, L501.9520, L3300.0100, L3130.0010, L500.4100, L501.9985, L3300.0700, L100.0100, L501.6710, L803.2200, L800.1280, L300.3900, L3400.0700, L3300.1200, L503.6550 ####[facility] [address] [place], [address] ANCAon 03-06-2024 Atypical pANCA <1:20 Normal Neg:<1:20 [facility] Comment on above: Order Comment: Test( s) 270329-Nuhkvl, Serum or Plasmawas developed and its performance characteristicsdetermined by [employer]. It has not been cleared or approvedby the Food and Drug Administration.YN Result Comment: The atypical pANCA pattern has been observed in a significant percentage of patients with ulcerative colitis, primary sclerosing cholangitis and autoimmune hepatitis. Performed By: #### L 500.4050, L7000.7000, L3100.6900, L503.5510, L503.6030, L3000.0375, L506.1000, L3100.5450, L3100.3425, L3100.1850, L3100.5440, L3890.6005, L3200.1100, L501.9520, L3300.0100, L3130.0010, L500.4100, L501.9985, L3300.0700, L100.0100, L501.6710, L803.2200, L800.1280, L300.3900, L3400.0700, L3300.1200, L503.6550 ####[facility] [address] [place], [address] Cytoplasmic Ab <1:20 Normal Neg:<1:20 [facility] Comment on above: Order Comment: Test( s) 954722-Bechcg, Serum or Plasmawas developed and its performance characteristicsdetermined by [employer]. It has not been cleared or approvedby the Food and Drug Administration.YN Performed By: #### L 500.4050, L7000.7000, L3100.6900, L503.5510, L503.6030, L3000.0375, L506.1000, L3100.5450, L3100.3425, L3100.1850, L3100.5440, L3890.6005, L3200.1100, L501.9520, L3300.0100, L3130.0010, L500.4100, L501.9985, L3300.0700, L100.0100, L501.6710, L803.2200, L800.1280, L300.3900, L3400.0700, L3300.1200, L503.6550 ####[facility] [address] [place], [place], [id number] Perinuclear Ab. <1:20 Normal Neg:<1:20 [facility] Comment on above: Order Comment: Test( s) [id number]-Tobydq, Serum or Plasmawas developed and its performance characteristicsdetermined by [employer]. It has not been cleared or approvedby the Food and Drug Administration.YN Result Comment: The presence of positive fluorescence exhibiting P-ANCA or C-ANCA patterns alone is not specific for the diagnosis of Edmund's Granulomatosis (WG) or microscopic polyangiitis. Decisions about treatment should not be based solely on ANCA IFA results. The International ANCA Group Consensus recommends follow up testing of positive sera with both DE- 3 and MPO-ANCA enzyme immunoassays. As many as 5% serum samples are positive only by EIA. Ref. AM J Clin Pathol 1999;111:507-513. Performed By: #### L 500.4050, L7000.7000, L3100.6900, L503.5510, L503.6030, L3000.0375, L506.1000, L3100.5450, L3100.3425, L3100.1850, L3100.5440, L3890.6005, L3200.1100, L501.9520, L3300.0100, L3130.0010, L500.4100, L501.9985, L3300.0700, L100.0100, L501.6710, L803.2200, L800.1280, L300.3900, L3400.0700, L3300.1200, L503.6550 ####[facility] [address] [place], [place], [address] Angiotensin Convert Enzymeon 03-06-2024 ANGIOT-CONV.ENZ 27 U/L Normal 14-82 [facility] Comment on above: Order Comment: Test( s) 096351-Yyumya, Serum or Plasmawas developed and its performance characteristicsdetermined by [employer]. It has not been cleared or approvedby the Food and Drug Administration.YN Performed By: #### L 500.4050, L7000.7000, L3100.6900, L503.5510, L503.6030, L3000.0375, L506.1000, L3100.5450, L3100.3425, L3100.1850, L3100.5440, L3890.6005, L3200.1100, L501.9520, L3300.0100, L3130.0010, L500.4100, L501.9985, L3300.0700, L100.0100, L501.6710, L803.2200, L800.1280, L300.3900, L3400.0700, L3300.1200, L503.6550 ####[facility] [address] [place], [address] Anti-Smooth Muscle ABSon ANTISMOOTH MUSC 9 Units Normal 0-19 [facility] Comment on above: Order Comment: Test( s) 370013-Svtwah, Serum or Plasmawas developed and its performance characteristicsdetermined by [employer]. It has not been cleared or approvedby the Food and Drug Administration.YN Result Comment: Nega tive 0 - 19 Weak positive 20 - 30 Moderate to strong positive >30 Actin Antibodies are found in 52-85% of patients with autoimmune hepatitis or chronic active hepatitis and in 22% of patients with primary biliary cirrhosis. Performed By: #### L 500.4050, L7000.7000, L3100.6900, L503.5510, L503.6030, L3000.0375, L506.1000, L3100.5450, L3100.3425, L3100.1850, L3100.5440, L3890.6005, L3200.1100, L501.9520, L3300.0100, L3130.0010, L500.4100, L501.9985, L3300.0700, L100.0100, L501.6710, L803.2200, L800.1280, L300.3900, L3400.0700, L3300.1200, L503.6550 ####[facility] [address] [place], [place], [address] Ceruloplasminon 03-06-2024 CERULOPLASMIN 17.9 mg/dL Normal 16.0-31.0 [facility] Comment on above: Order Comment: Test( s) 529329-Wsfmfi, Serum or Plasmawas developed and its performance characteristicsdetermined by [employer]. It has not been cleared or approvedby the Food and Drug Administration.YN Performed By: #### L 500.4050, L7000.7000, L3100.6900, L503.5510, L503.6030, L3000.0375, L506.1000, L3100.5450, L3100.3425, L3100.1850, L3100.5440, L3890.6005, L3200.1100, L501.9520, L3300.0100, L3130.0010, L500.4100, L501.9985, L3300.0700, L100.0100, L501.6710, L803.2200, L800.1280, L300.3900, L3400.0700, L3300.1200, L503.6550 ####[facility] [address] [place], [place], [address] Copper, Serum or Plasmaon COPPER, SERUM 70 ug/dL Normal 69-132 [facility] Comment on above: Order Comment: Test( s) 693986-Vdjwrs, Serum or Plasmawas developed and its performance characteristicsdetermined by [employer]. It has not been cleared or approvedby the Food and Drug Administration.YN Result Comment: Dete ction Limit = 5 Performed By: #### L 500.4050, L7000.7000, L3100.6900, L503.5510, L503.6030, L3000.0375, L506.1000, L3100.5450, L3100.3425, L3100.1850, L3100.5440, L3890.6005, L3200.1100, L501.9520, L3300.0100, L3130.0010, L500.4100, L501.9985, L3300.0700, L100.0100, L501.6710, L803.2200, L800.1280, L300.3900, L3400.0700, L3300.1200, L503.6550 ####[facility] [address] [place], [address] Haptoglobinon 03-06-2024 HAPTOGLOBIN 35 mg/dL Normal 32-363 [facility] Comment on above: Order Comment: Test( s) 240921-Oajguc, Serum or Plasmawas developed and its performance characteristicsdetermined by [employer]. It has not been cleared or approvedby the Food and Drug Administration.YN Result Comment: Perf ormed at: [address] [id number] Marine Surveyor: Edilberto Cooley PhD, Phone: [phone] Performed at: [address] [id number] Marine Surveyor: Lizabeth Hammer MD, Phone: [phone] Performed By: #### L 500.4050, L7000.7000, L3100.6900, L503.5510, L503.6030, L3000.0375, L506.1000, L3100.5450, L3100.3425, L3100.1850, L3100.5440, L3890.6005, L3200.1100, L501.9520, L3300.0100, L3130.0010, L500.4100, L501.9985, L3300.0700, L100.0100, L501.6710, L803.2200, L800.1280, L300.3900, L3400.0700, L3300.1200, L503.6550 ####[facility] [address] 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 [facility] Comment on above: Order Comment: Test( s) 073523-Ymutzo, Serum or Plasmawas developed and its performance characteristicsdetermined by [employer]. It has not been cleared or approvedby the Food and Drug Administration.YN Performed By: #### L 500.4050, L7000.7000, L3100.6900, L503.5510, L503.6030, L3000.0375, L506.1000, L3100.5450, L3100.3425, L3100.1850, L3100.5440, L3890.6005, L3200.1100, L501.9520, L3300.0100, L3130.0010, L500.4100, L501.9985, L3300.0700, L100.0100, L501.6710, L803.2200, L800.1280, L300.3900, L3400.0700, L3300.1200, L503.6550 ####[facility] [address] [facility], [address] HCV QT RNA PCR Not detected Normal . [facility] Comment on above: Order Comment: Test( s) 929112-Xeqmfv, Serum or Plasmawas developed and its performance characteristicsdetermined by [employer]. It has not been cleared or approvedby the Food and Drug Administration.YN Performed By: #### L 500.4050, L7000.7000, L3100.6900, L503.5510, L503.6030, L3000.0375, L506.1000, L3100.5450, L3100.3425, L3100.1850, L3100.5440, L3890.6005, L3200.1100, L501.9520, L3300.0100, L3130.0010, L500.4100, L501.9985, L3300.0700, L100.0100, L501.6710, L803.2200, L800.1280, L300.3900, L3400.0700, L3300.1200, L503.6550 ####[facility] [address] [place], [address] TEST INFO: Comment Normal . [facility] Comment on above: Order Comment: Test( s) 459769-Tuegpu, Serum or Plasmawas developed and its performance characteristicsdetermined by [employer]. It has not been cleared or approvedby the Food and Drug Administration.YN Result Comment: The quantitative range of this assay is 15 IU/mL to 100 million IU/mL. Performed By: #### L 500.4050, L7000.7000, L3100.6900, L503.5510, L503.6030, L3000.0375, L506.1000, L3100.5450, L3100.3425, L3100.1850, L3100.5440, L3890.6005, L3200.1100, L501.9520, L3300.0100, L3130.0010, L500.4100, L501.9985, L3300.0700, L100.0100, L501.6710, L803.2200, L800.1280, L300.3900, L3400.0700, L3300.1200, L503.6550 ####[facility] [address] [place], [address] Hepatitis Panel Acuteon 10-0 COMMENT Comment Normal . [facility] Comment on above: Order Comment: Test( s) 139628-Inylpf, Serum or Plasmawas developed and its performance characteristicsdetermined by [employer]. It has not been cleared or approvedby the Food and Drug Administration.YN Result Comment: Not infected with HCV unless early or acute infection is suspected (which may be delayed in an immunocompromised individual), or other evidence exists to indicate HCV infection. Performed By: #### L 500.4050, L7000.7000, L3100.6900, L503.5510, L503.6030, L3000.0375, L506.1000, L3100.5450, L3100.3425, L3100.1850, L3100.5440, L3890.6005, L3200.1100, L501.9520, L3300.0100, L3130.0010, L500.4100, L501.9985, L3300.0700, L100.0100, L501.6710, L803.2200, L800.1280, L300.3900, L3400.0700, L3300.1200, L503.6550 ####[facility] [address] [place], [place], [id number] HEP B CORE,IgM Negative Normal Negative [facility] Comment on above: Order Comment: Test( s) 263782-Mrvljw, Serum or Plasmawas developed and its performance characteristicsdetermined by [employer]. It has not been cleared or approvedby the Food and Drug Administration.YN Performed By: #### L 500.4050, L7000.7000, L3100.6900, L503.5510, L503.6030, L3000.0375, L506.1000, L3100.5450, L3100.3425, L3100.1850, L3100.5440, L3890.6005, L3200.1100, L501.9520, L3300.0100, L3130.0010, L500.4100, L501.9985, L3300.0700, L100.0100, L501.6710, L803.2200, L800.1280, L300.3900, L3400.0700, L3300.1200, L503.6550 ####[facility] [address] [place], [place], [id number] HEP B SURF AG Negative Normal Negative [facility] Comment on above: Order Comment: Test( s) 887721-Syvbus, Serum or Plasmawas developed and its performance characteristicsdetermined by [employer]. It has not been cleared or approvedby the Food and Drug Administration.YN Performed By: #### L 500.4050, L7000.7000, L3100.6900, L503.5510, L503.6030, L3000.0375, L506.1000, L3100.5450, L3100.3425, L3100.1850, L3100.5440, L3890.6005, L3200.1100, L501.9520, L3300.0100, L3130.0010, L500.4100, L501.9985, L3300.0700, L100.0100, L501.6710, L803.2200, L800.1280, L300.3900, L3400.0700, L3300.1200, L503.6550 ####[facility] [address] [place], [place], [id number] HEP C VIRUS AB Non-Reactive Normal Non Reactive [facility] Comment on above: Order Comment: Test( s) 240645-Jchkti, Serum or Plasmawas developed and its performance characteristicsdetermined by [employer]. It has not been cleared or approvedby the Food and Drug Administration.YN Performed By: #### L 500.4050, L7000.7000, L3100.6900, L503.5510, L503.6030, L3000.0375, L506.1000, L3100.5450, L3100.3425, L3100.1850, L3100.5440, L3890.6005, L3200.1100, L501.9520, L3300.0100, L3130.0010, L500.4100, L501.9985, L3300.0700, L100.0100, L501.6710, L803.2200, L800.1280, L300.3900, L3400.0700, L3300.1200, L503.6550 ####[facility] [address] [place], [place], [id number] HEPATITIS A-IgM Negative Normal Negative [facility] Comment on above: Order Comment: Test( s) 809837-Fxyuhp, Serum or Plasmawas developed and its performance characteristicsdetermined by [employer]. It has not been cleared or approvedby the Food and Drug Administration.YN Result Comment: A ne gative anti-HAV IgM result suggests no recent or current HAV infection. Performed By: #### L 500.4050, L7000.7000, L3100.6900, L503.5510, L503.6030, L3000.0375, L506.1000, L3100.5450, L3100.3425, L3100.1850, L3100.5440, L3890.6005, L3200.1100, L501.9520, L3300.0100, L3130.0010, L500.4100, L501.9985, L3300.0700, L100.0100, L501.6710, L803.2200, L800.1280, L300.3900, L3400.0700, L3300.1200, L503.6550 ####[facility] [address] [place], [place], [id number] HELEN + Protein Elect, Serumon 03-06-2024 Albumin [Mass/Vol] 3.7 g/dL Normal 2.9-4.4 [facility] Comment on above: Order Comment: Test( s) [id number]-Axvzpq, Serum or Plasmawas developed and its performance characteristicsdetermined by [employer]. It has not been cleared or approvedby the Food and Drug Administration.YN Performed By: #### L 500.4050, L7000.7000, L3100.6900, L503.5510, L503.6030, L3000.0375, L506.1000, L3100.5450, L3100.3425, L3100.1850, L3100.5440, L3890.6005, L3200.1100, L501.9520, L3300.0100, L3130.0010, L500.4100, L501.9985, L3300.0700, L100.0100, L501.6710, L803.2200, L800.1280, L300.3900, L3400.0700, L3300.1200, L503.6550 ####[facility] [address] [place], [place], [id number] Albumin/Globulin [Mass ratio] 1.2 {ratio} Normal 0.7-1.7 [facility] Comment on above: Order Comment: Test( s) 899475-Ttoext, Serum or Plasmawas developed and its performance characteristicsdetermined by [employer]. It has not been cleared or approvedby the Food and Drug Administration.YN Performed By: #### L 500.4050, L7000.7000, L3100.6900, L503.5510, L503.6030, L3000.0375, L506.1000, L3100.5450, L3100.3425, L3100.1850, L3100.5440, L3890.6005, L3200.1100, L501.9520, L3300.0100, L3130.0010, L500.4100, L501.9985, L3300.0700, L100.0100, L501.6710, L803.2200, L800.1280, L300.3900, L3400.0700, L3300.1200, L503.6550 ####[facility] [address] [place], [address] PVKOG-6-HOQQ 0.2 g/dL Normal 0.0-0.4 [facility] Comment on above: Order Comment: Test( s) 797341-Jchpyh, Serum or Plasmawas developed and its performance characteristicsdetermined by [employer]. It has not been cleared or approvedby the Food and Drug Administration.YN Performed By: #### L 500.4050, L7000.7000, L3100.6900, L503.5510, L503.6030, L3000.0375, L506.1000, L3100.5450, L3100.3425, L3100.1850, L3100.5440, L3890.6005, L3200.1100, L501.9520, L3300.0100, L3130.0010, L500.4100, L501.9985, L3300.0700, L100.0100, L501.6710, L803.2200, L800.1280, L300.3900, L3400.0700, L3300.1200, L503.6550 ####[facility] [address] [place], [address] RQGHV-4-TMSA 0.7 g/dL Normal 0.4-1.0 [facility] Comment on above: Order Comment: Test( s) [id number]-Ptokta, Serum or Plasmawas developed and its performance characteristicsdetermined by [employer]. It has not been cleared or approvedby the Food and Drug Administration.YN Performed By: #### L 500.4050, L7000.7000, L3100.6900, L503.5510, L503.6030, L3000.0375, L506.1000, L3100.5450, L3100.3425, L3100.1850, L3100.5440, L3890.6005, L3200.1100, L501.9520, L3300.0100, L3130.0010, L500.4100, L501.9985, L3300.0700, L100.0100, L501.6710, L803.2200, L800.1280, L300.3900, L3400.0700, L3300.1200, L503.6550 ####[facility] [address] [place], [place], [address] BETA GLOBULIN 1.2 g/dL Normal 0.7-1.3 [facility] Comment on above: Order Comment: Test( s) [id number]-Wqaoqo, Serum or Plasmawas developed and its performance characteristicsdetermined by [employer]. It has not been cleared or approvedby the Food and Drug Administration.YN Performed By: #### L 500.4050, L7000.7000, L3100.6900, L503.5510, L503.6030, L3000.0375, L506.1000, L3100.5450, L3100.3425, L3100.1850, L3100.5440, L3890.6005, L3200.1100, L501.9520, L3300.0100, L3130.0010, L500.4100, L501.9985, L3300.0700, L100.0100, L501.6710, L803.2200, L800.1280, L300.3900, L3400.0700, L3300.1200, L503.6550 ####[facility] [address] [facility] [place], [place], [id number] GAMMA GLOBULIN 1.2 g/dL Normal 0.4-1.8 [facility] Comment on above: Order Comment: Test( s) [id number]-Mfsohr, Serum or Plasmawas developed and its performance characteristicsdetermined by [employer]. It has not been cleared or approvedby the Food and Drug Administration.YN Performed By: #### L 500.4050, L7000.7000, L3100.6900, L503.5510, L503.6030, L3000.0375, L506.1000, L3100.5450, L3100.3425, L3100.1850, L3100.5440, L3890.6005, L3200.1100, L501.9520, L3300.0100, L3130.0010, L500.4100, L501.9985, L3300.0700, L100.0100, L501.6710, L803.2200, L800.1280, L300.3900, L3400.0700, L3300.1200, L503.6550 ####[facility] [address] [facility] [place], [place], [address] Globulin (S) [Mass/Vol] 3.2 g/dL Normal 2.2-3.9 [facility] Comment on above: Order Comment: Test( s) 110815-Wipmdl, Serum or Plasmawas developed and its performance characteristicsdetermined by [employer]. It has not been cleared or approvedby the Food and Drug Administration.YN Performed By: #### L 500.4050, L7000.7000, L3100.6900, L503.5510, L503.6030, L3000.0375, L506.1000, L3100.5450, L3100.3425, L3100.1850, L3100.5440, L3890.6005, L3200.1100, L501.9520, L3300.0100, L3130.0010, L500.4100, L501.9985, L3300.0700, L100.0100, L501.6710, L803.2200, L800.1280, L300.3900, L3400.0700, L3300.1200, L503.6550 ####[facility] [address] [place], [place], [id number] HELEN RESULT,S Comment Normal . [facility] Comment on above: Order Comment: Test( s) 719600-Baifoh, Serum or Plasmawas developed and its performance characteristicsdetermined by [employer]. It has not been cleared or approvedby the Food and Drug Administration.YN Result Comment: No m onoclonality detected. Performed By: #### L 500.4050, L7000.7000, L3100.6900, L503.5510, L503.6030, L3000.0375, L506.1000, L3100.5450, L3100.3425, L3100.1850, L3100.5440, L3890.6005, L3200.1100, L501.9520, L3300.0100, L3130.0010, L500.4100, L501.9985, L3300.0700, L100.0100, L501.6710, L803.2200, L800.1280, L300.3900, L3400.0700, L3300.1200, L503.6550 ####[facility] [address] [place], [address] IMMUNOGLOB A QN 169 mg/dL Normal 61-437 [facility] Comment on above: Order Comment: Test( s) 484354-Wgbmfd, Serum or Plasmawas developed and its performance characteristicsdetermined by [employer]. It has not been cleared or approvedby the Food and Drug Administration.YN Performed By: #### L 500.4050, L7000.7000, L3100.6900, L503.5510, L503.6030, L3000.0375, L506.1000, L3100.5450, L3100.3425, L3100.1850, L3100.5440, L3890.6005, L3200.1100, L501.9520, L3300.0100, L3130.0010, L500.4100, L501.9985, L3300.0700, L100.0100, L501.6710, L803.2200, L800.1280, L300.3900, L3400.0700, L3300.1200, L503.6550 ####[facility] [address] [place], [place], [id number] IMMUNOGLOB G QN 1089 mg/dL Normal 603-1613 [facility] Comment on above: Order Comment: Test( s) 325373-Uffgri, Serum or Plasmawas developed and its performance characteristicsdetermined by [employer]. It has not been cleared or approvedby the Food and Drug Administration.YN Performed By: #### L 500.4050, L7000.7000, L3100.6900, L503.5510, L503.6030, L3000.0375, L506.1000, L3100.5450, L3100.3425, L3100.1850, L3100.5440, L3890.6005, L3200.1100, L501.9520, L3300.0100, L3130.0010, L500.4100, L501.9985, L3300.0700, L100.0100, L501.6710, L803.2200, L800.1280, L300.3900, L3400.0700, L3300.1200, L503.6550 ####[facility] [address] [facility] [place], [place], [id number] IMMUNOGLOB M QN 43 mg/dL Normal 20-172 [facility] Comment on above: Order Comment: Test( s) 026473-Dvresa, Serum or Plasmawas developed and its performance characteristicsdetermined by [employer]. It has not been cleared or approvedby the Food and Drug Administration.YN Performed By: #### L 500.4050, L7000.7000, L3100.6900, L503.5510, L503.6030, L3000.0375, L506.1000, L3100.5450, L3100.3425, L3100.1850, L3100.5440, L3890.6005, L3200.1100, L501.9520, L3300.0100, L3130.0010, L500.4100, L501.9985, L3300.0700, L100.0100, L501.6710, L803.2200, L800.1280, L300.3900, L3400.0700, L3300.1200, L503.6550 ####[facility] [address] [place], [place], [address] M-Cole Not Observed Normal Not Observed [facility] Comment on above: Order Comment: Test( s) 134482-Xusfsx, Serum or Plasmawas developed and its performance characteristicsdetermined by [employer]. It has not been cleared or approvedby the Food and Drug Administration.YN Performed By: #### L 500.4050, L7000.7000, L3100.6900, L503.5510, L503.6030, L3000.0375, L506.1000, L3100.5450, L3100.3425, L3100.1850, L3100.5440, L3890.6005, L3200.1100, L501.9520, L3300.0100, L3130.0010, L500.4100, L501.9985, L3300.0700, L100.0100, L501.6710, L803.2200, L800.1280, L300.3900, L3400.0700, L3300.1200, L503.6550 ####[facility] [address] [place], [address] NOTE: Comment Normal . [facility] Comment on above: Order Comment: Test( s) 431378-Qfztoc, Serum or Plasmawas developed and its performance characteristicsdetermined by [employer]. It has not been cleared or approvedby the Food and Drug Administration.YN Result Comment: Prot ein electrophoresis scan will follow via computer, mail, or consignee delivery. Performed By: #### L 500.4050, L7000.7000, L3100.6900, L503.5510, L503.6030, L3000.0375, L506.1000, L3100.5450, L3100.3425, L3100.1850, L3100.5440, L3890.6005, L3200.1100, L501.9520, L3300.0100, L3130.0010, L500.4100, L501.9985, L3300.0700, L100.0100, L501.6710, L803.2200, L800.1280, L300.3900, L3400.0700, L3300.1200, L503.6550 ####[facility] [address] [place], [address] Protein [Mass/Vol] 6.9 g/dL Normal 6.0-8.5 [facility] Comment on above: Order Comment: Test( s) 960757-Fiqpke, Serum or Plasmawas developed and its performance characteristicsdetermined by [employer]. It has not been cleared or approvedby the Food and Drug Administration.YN Performed By: #### L 500.4050, L7000.7000, L3100.6900, L503.5510, L503.6030, L3000.0375, L506.1000, L3100.5450, L3100.3425, L3100.1850, L3100.5440, L3890.6005, L3200.1100, L501.9520, L3300.0100, L3130.0010, L500.4100, L501.9985, L3300.0700, L100.0100, L501.6710, L803.2200, L800.1280, L300.3900, L3400.0700, L3300.1200, L503.6550 ####[facility] [address] [facility] [place], [place], [address] Immunoglobulins G/A/M/Nicolas IMMUNOGLOB E QN 21 IU/mL Normal 6-495 [facility] Comment on above: Order Comment: Test( s) 633886-Eblyww, Serum or Plasmawas developed and its performance characteristicsdetermined by [employer]. It has not been cleared or approvedby the Food and Drug Administration.YN Performed By: #### L 500.4050, L7000.7000, L3100.6900, L503.5510, L503.6030, L3000.0375, L506.1000, L3100.5450, L3100.3425, L3100.1850, L3100.5440, L3890.6005, L3200.1100, L501.9520, L3300.0100, L3130.0010, L500.4100, L501.9985, L3300.0700, L100.0100, L501.6710, L803.2200, L800.1280, L300.3900, L3400.0700, L3300.1200, L503.6550 ####[facility] [address] [place], [place], [address] [facility] Lambda Light Chainson 03-06-2024 FR KAPPA LT CHN 21.1 mg/L Abnormal 3.3-19.4 [facility] Comment on above: Order Comment: Test( s) 340393-Kvjwty, Serum or Plasmawas developed and its performance characteristicsdetermined by [employer]. It has not been cleared or approvedby the Food and Drug Administration.YN Performed By: #### L 500.4050, L7000.7000, L3100.6900, L503.5510, L503.6030, L3000.0375, L506.1000, L3100.5450, L3100.3425, L3100.1850, L3100.5440, L3890.6005, L3200.1100, L501.9520, L3300.0100, L3130.0010, L500.4100, L501.9985, L3300.0700, L100.0100, L501.6710, L803.2200, L800.1280, L300.3900, L3400.0700, L3300.1200, L503.6550 ####[facility] [address] [place], [place], [address] FR LAMBDA LT CH 18.4 mg/L Normal 5.7-26.3 [facility] Comment on above: Order Comment: Test( s) 650893-Zsrebg, Serum or Plasmawas developed and its performance characteristicsdetermined by [employer]. It has not been cleared or approvedby the Food and Drug Administration.YN Performed By: #### L 500.4050, L7000.7000, L3100.6900, L503.5510, L503.6030, L3000.0375, L506.1000, L3100.5450, L3100.3425, L3100.1850, L3100.5440, L3890.6005, L3200.1100, L501.9520, L3300.0100, L3130.0010, L500.4100, L501.9985, L3300.0700, L100.0100, L501.6710, L803.2200, L800.1280, L300.3900, L3400.0700, L3300.1200, L503.6550 ####[facility] [address] [facility] [address] [place], [place], [id number] KAPPA/LAMBDA % 1.15 Normal 0.26-1.65 [facility] Comment on above: Order Comment: Test( s) 902665-Cbcagu, Serum or Plasmawas developed and its performance characteristicsdetermined by [employer]. It has not been cleared or approvedby the Food and Drug Administration.YN Performed By: #### L 500.4050, L7000.7000, L3100.6900, L503.5510, L503.6030, L3000.0375, L506.1000, L3100.5450, L3100.3425, L3100.1850, L3100.5440, L3890.6005, L3200.1100, L501.9520, L3300.0100, L3130.0010, L500.4100, L501.9985, L3300.0700, L100.0100, L501.6710, L803.2200, L800.1280, L300.3900, L3400.0700, L3300.1200, L503.6550 ####[facility] [address] [place], [place], [id number] LABORATORYOrdered By: SYSTEM SYSTEM on 03-04-2024 Prostate specific Ag [Mass/Vol] ng/mL Normal 0.00 - 4.00 ng/mL AO ADM SS PSAon 03-04-2024 Prostate Specific Antigen <0.05 Normal 0.00-4.00 [facility] Comment on above: Performed By: #### P SA #### [address] [address] ELSA Comprehensive Panelon ANTI-CENT B AB <0.2 Normal 0.0-0.9 [facility] Comment on above: Performed By: #### L 500.4050, L7000.7000, L3100.6900, L503.5510, L503.6030, L3000.0375, L506.1000, L3100.5450, L3100.3425, L3100.1850, L3100.5440, L3890.6005, L3200.1100, L501.9520, L3300.0100, L3130.0010, L500.4100, L501.9985, L3300.0700, L100.0100, L501.6710, L803.2200, L800.1280, L300.3900, L3400.0700, L3300.1200, L503.6550 ####[facility] [address] [place], [place], [address] ANTI-DNA (DS)AB <1 Normal 0-9 [facility] Comment on above: Result Comment: Nega tive <5 Equivocal 5 - 9 Positive >9 Performed By: #### L 500.4050, L7000.7000, L3100.6900, L503.5510, L503.6030, L3000.0375, L506.1000, L3100.5450, L3100.3425, L3100.1850, L3100.5440, L3890.6005, L3200.1100, L501.9520, L3300.0100, L3130.0010, L500.4100, L501.9985, L3300.0700, L100.0100, L501.6710, L803.2200, L800.1280, L300.3900, L3400.0700, L3300.1200, L503.6550 ####[facility] [address] [facility] [place], [place], [address] ANTI-YANNI-1 <0.2 Normal 0.0-0.9 [facility] Comment on above: Performed By: #### L 500.4050, L7000.7000, L3100.6900, L503.5510, L503.6030, L3000.0375, L506.1000, L3100.5450, L3100.3425, L3100.1850, L3100.5440, L3890.6005, L3200.1100, L501.9520, L3300.0100, L3130.0010, L500.4100, L501.9985, L3300.0700, L100.0100, L501.6710, L803.2200, L800.1280, L300.3900, L3400.0700, L3300.1200, L503.6550 ####[facility] [address] [place], [place], [address] ANTI-SS-A < 0.2 Normal 0.0-0.9 [facility] Comment on above: Performed By: #### L 500.4050, L7000.7000, L3100.6900, L503.5510, L503.6030, L3000.0375, L506.1000, L3100.5450, L3100.3425, L3100.1850, L3100.5440, L3890.6005, L3200.1100, L501.9520, L3300.0100, L3130.0010, L500.4100, L501.9985, L3300.0700, L100.0100, L501.6710, L803.2200, L800.1280, L300.3900, L3400.0700, L3300.1200, L503.6550 ####[facility] [address] [facility] [place], [place], [address] ANTI-SS-B < 0.2 Normal 0.0-0.9 [facility] Comment on above: Performed By: #### L 500.4050, L7000.7000, L3100.6900, L503.5510, L503.6030, L3000.0375, L506.1000, L3100.5450, L3100.3425, L3100.1850, L3100.5440, L3890.6005, L3200.1100, L501.9520, L3300.0100, L3130.0010, L500.4100, L501.9985, L3300.0700, L100.0100, L501.6710, L803.2200, L800.1280, L300.3900, L3400.0700, L3300.1200, L503.6550 ####[facility] [address] [facility] [place], [place], [address] ANTICHROMATIN <0.2 Normal 0.0-0.9 [facility] Comment on above: Performed By: #### L 500.4050, L7000.7000, L3100.6900, L503.5510, L503.6030, L3000.0375, L506.1000, L3100.5450, L3100.3425, L3100.1850, L3100.5440, L3890.6005, L3200.1100, L501.9520, L3300.0100, L3130.0010, L500.4100, L501.9985, L3300.0700, L100.0100, L501.6710, L803.2200, L800.1280, L300.3900, L3400.0700, L3300.1200, L503.6550 ####[facility] [address] [place], [place], [address] ANTISCLERODERM <0.2 Normal 0.0-0.9 [facility] Comment on above: Performed By: #### L 500.4050, L7000.7000, L3100.6900, L503.5510, L503.6030, L3000.0375, L506.1000, L3100.5450, L3100.3425, L3100.1850, L3100.5440, L3890.6005, L3200.1100, L501.9520, L3300.0100, L3130.0010, L500.4100, L501.9985, L3300.0700, L100.0100, L501.6710, L803.2200, L800.1280, L300.3900, L3400.0700, L3300.1200, L503.6550 ####[facility] [address] [facility] [address] [place], [place], [address] LATEX FASHIONS DESIGNER Ab <0.2 Normal 0.0-0.9 [facility] Comment on above: Performed By: #### L 500.4050, L7000.7000, L3100.6900, L503.5510, L503.6030, L3000.0375, L506.1000, L3100.5450, L3100.3425, L3100.1850, L3100.5440, L3890.6005, L3200.1100, L501.9520, L3300.0100, L3130.0010, L500.4100, L501.9985, L3300.0700, L100.0100, L501.6710, L803.2200, L800.1280, L300.3900, L3400.0700, L3300.1200, L503.6550 ####[facility] [address] [facility] [address] [place], [place], [address] LAKHANI Ab <0.2 Normal 0.0-0.9 [facility] Comment on above: Performed By: #### L 500.4050, L7000.7000, L3100.6900, L503.5510, L503.6030, L3000.0375, L506.1000, L3100.5450, L3100.3425, L3100.1850, L3100.5440, L3890.6005, L3200.1100, L501.9520, L3300.0100, L3130.0010, L500.4100, L501.9985, L3300.0700, L100.0100, L501.6710, L803.2200, L800.1280, L300.3900, L3400.0700, L3300.1200, L503.6550 ####[facility] [address] [place], [address] ELSA w/ Reflex Mult Confirmon 03-03-2024 ELSA,DIRECT Negative Normal Negative [facility] Comment on above: Result Comment: Perf ormed at: - [facility] [id number] Marine Surveyor: Edilberto Cooley PhD, Phone: [phone] Performed By: #### L 500.4050, L7000.7000, L3100.6900, L503.5510, L503.6030, L3000.0375, L506.1000, L3100.5450, L3100.3425, L3100.1850, L3100.5440, L3890.6005, L3200.1100, L501.9520, L3300.0100, L3130.0010, L500.4100, L501.9985, L3300.0700, L100.0100, L501.6710, L803.2200, L800.1280, L300.3900, L3400.0700, L3300.1200, L503.6550 ####[facility] [address] [place], [address] ELSA-D See below Comment Normal . [facility] Comment on above: Result Comment: Auto antibody Disease Association Condition Frequency --------- Antinuclear Antibody, SLE, mixed connective Direct (ELSA-D) tissue diseases --------- dsDNA SLE 40 - 60% --------- Chromatin Drug induced SLE 90% SLE 48 - 97% --------- SSA (Ro) SLE 25 - 35% Sjogren's Syndrome 40 - 70% Lupus 100% --------- SSB (La) SLE 10% Sjogren's Syndrome 30% --------- Sm (anti-Lakhani) SLE 15 - 30% --------- LATEX FASHIONS DESIGNER Mixed Connective Tissue Disease 95% (U1 nRNP, SLE 30 - 50% anti-ribonucleoprotein) Polymyositis and/or Dermatomyositis 20% --------- Scl-70 (antiDNA Scleroderma (diffuse) 20 - 35% topoisomerase) Crest 13% --------- Yanni-1 Polymyositis and/or Dermatomyositis 20 - 40% --------- Centromere B Scleroderma - Crest variant 80% Performed By: #### L 500.4050, L7000.7000, L3100.6900, L503.5510, L503.6030, L3000.0375, L506.1000, L3100.5450, L3100.3425, L3100.1850, L3100.5440, L3890.6005, L3200.1100, L501.9520, L3300.0100, L3130.0010, L500.4100, L501.9985, L3300.0700, L100.0100, L501.6710, L803.2200, L800.1280, L300.3900, L3400.0700, L3300.1200, L503.6550 ####[facility] [address] [place], [place], [address] Anti-Mitochondrial ABon 09-3 ANTIMITOCHON AB <20.0 Normal 0.0-20.0 [facility] Comment on above: Result Comment: Nega tive 0.0 - 20.0 Equivocal 20.1 - 24.9 Positive >24.9 Mitochondrial (M2) Antibodies are found in 90-96% of patients with primary biliary cirrhosis. Performed By: #### L 500.4050, L7000.7000, L3100.6900, L503.5510, L503.6030, L3000.0375, L506.1000, L3100.5450, L3100.3425, L3100.1850, L3100.5440, L3890.6005, L3200.1100, L501.9520, L3300.0100, L3130.0010, L500.4100, L501.9985, L3300.0700, L100.0100, L501.6710, L803.2200, L800.1280, L300.3900, L3400.0700, L3300.1200, L503.6550 ####[facility] [address] [facility] [place], [place], [id number] Ammoniaon 02-29-2024 Ammonia (P) [Moles/Vol] 27.0 umol/L Normal - [facility] Comment on above: Performed By: #### L 500.4050, L7000.7000, L3100.6900, L503.5510, L503.6030, L3000.0375, L506.1000, L3100.5450, L3100.3425, L3100.1850, L3100.5440, L3890.6005, L3200.1100, L501.9520, L3300.0100, L3130.0010, L500.4100, L501.9985, L3300.0700, L100.0100, L501.6710, L803.2200, L800.1280, L300.3900, L3400.0700, L3300.1200, L503.6550 #### [facility] [address] [facility] [place], [place], [address] CBC W/Diff, Automatedon - PLT EST MOD DEC Normal ADEQ [facility] Comment on above: Performed By: #### L 500.4050, L7000.7000, L3100.6900, L503.5510, L503.6030, L3000.0375, L506.1000, L3100.5450, L3100.3425, L3100.1850, L3100.5440, L3890.6005, L3200.1100, L501.9520, L3300.0100, L3130.0010, L500.4100, L501.9985, L3300.0700, L100.0100, L501.6710, L803.2200, L800.1280, L300.3900, L3400.0700, L3300.1200, L503.6550 #### [facility] [address] [place], [address] CRPon 02-29-2024 C-REACTIVE PROT < 2.90 Normal 0.0-3.0 [facility] Comment on above: Result Comment: C-Re active Protein (CRP) provides useful information for the diagnosis, therapy and monitoring of inflammatory processes and associated diseases. For the evaluation of Relative Risk for Cardiovascular Disease, a High Sensitivity CRP (HSCRP) should be ordered. Performed By: #### L 500.4050, L7000.7000, L3100.6900, L503.5510, L503.6030, L3000.0375, L506.1000, L3100.5450, L3100.3425, L3100.1850, L3100.5440, L3890.6005, L3200.1100, L501.9520, L3300.0100, L3130.0010, L500.4100, L501.9985, L3300.0700, L100.0100, L501.6710, L803.2200, L800.1280, L300.3900, L3400.0700, L3300.1200, L503.6550 ####[facility] [address] [place], [address] Comprehensive Metabolic Prof ilon 02-29-2024 Albumin [Mass/Vol] 4.1 g/dL Normal 3.2-5.0 [facility] Comment on above: Performed By: #### L 500.4050, L7000.7000, L3100.6900, L503.5510, L503.6030, L3000.0375, L506.1000, L3100.5450, L3100.3425, L3100.1850, L3100.5440, L3890.6005, L3200.1100, L501.9520, L3300.0100, L3130.0010, L500.4100, L501.9985, L3300.0700, L100.0100, L501.6710, L803.2200, L800.1280, L300.3900, L3400.0700, L3300.1200, L503.6550 ####[facility] [address] [place], [address] Albumin/Globulin [Mass ratio] 1.2 {ratio} Normal 0.9-2.4 [facility] Comment on above: Performed By: #### L 500.4050, L7000.7000, L3100.6900, L503.5510, L503.6030, L3000.0375, L506.1000, L3100.5450, L3100.3425, L3100.1850, L3100.5440, L3890.6005, L3200.1100, L501.9520, L3300.0100, L3130.0010, L500.4100, L501.9985, L3300.0700, L100.0100, L501.6710, L803.2200, L800.1280, L300.3900, L3400.0700, L3300.1200, L503.6550 ####[facility] [address] [place], [address] ALK P 66 U/L Normal 45-117 [facility] Comment on above: Performed By: #### L 500.4050, L7000.7000, L3100.6900, L503.5510, L503.6030, L3000.0375, L506.1000, L3100.5450, L3100.3425, L3100.1850, L3100.5440, L3890.6005, L3200.1100, L501.9520, L3300.0100, L3130.0010, L500.4100, L501.9985, L3300.0700, L100.0100, L501.6710, L803.2200, L800.1280, L300.3900, L3400.0700, L3300.1200, L503.6550 ####[facility] [address] [place], [place], [id number] ALT [Catalytic activity/Vol] 32 U/L Normal 16-61 [facility] Comment on above: Performed By: #### L 500.4050, L7000.7000, L3100.6900, L503.5510, L503.6030, L3000.0375, L506.1000, L3100.5450, L3100.3425, L3100.1850, L3100.5440, L3890.6005, L3200.1100, L501.9520, L3300.0100, L3130.0010, L500.4100, L501.9985, L3300.0700, L100.0100, L501.6710, L803.2200, L800.1280, L300.3900, L3400.0700, L3300.1200, L503.6550 ####[facility] [address] [place], [place], [id number] AST [Catalytic activity/Vol] 24 U/L Normal 15-37 [facility] Comment on above: Performed By: #### L 500.4050, L7000.7000, L3100.6900, L503.5510, L503.6030, L3000.0375, L506.1000, L3100.5450, L3100.3425, L3100.1850, L3100.5440, L3890.6005, L3200.1100, L501.9520, L3300.0100, L3130.0010, L500.4100, L501.9985, L3300.0700, L100.0100, L501.6710, L803.2200, L800.1280, L300.3900, L3400.0700, L3300.1200, L503.6550 ####[facility] [address] [place], [place], [id number] Bilirubin [Mass/Vol] 1.00 mg/dL Normal 0.20-1.00 [facility] Comment on above: Result Comment: For patients on eltrombopag therapy, use of Dimension [place] TBIL is not recommended. Performed By: #### L 500.4050, L7000.7000, L3100.6900, L503.5510, L503.6030, L3000.0375, L506.1000, L3100.5450, L3100.3425, L3100.1850, L3100.5440, L3890.6005, L3200.1100, L501.9520, L3300.0100, L3130.0010, L500.4100, L501.9985, L3300.0700, L100.0100, L501.6710, L803.2200, L800.1280, L300.3900, L3400.0700, L3300.1200, L503.6550 ####[facility] [address] [place], [place], [id number] BUN/CRE 21.3 RATIO High 10-20 [facility] Comment on above: Performed By: #### L 500.4050, L7000.7000, L3100.6900, L503.5510, L503.6030, L3000.0375, L506.1000, L3100.5450, L3100.3425, L3100.1850, L3100.5440, L3890.6005, L3200.1100, L501.9520, L3300.0100, L3130.0010, L500.4100, L501.9985, L3300.0700, L100.0100, L501.6710, L803.2200, L800.1280, L300.3900, L3400.0700, L3300.1200, L503.6550 ####[facility] [address] [place], [place], [id number] CA,Total 9.2 mg/dL Normal 8.5-10.1 [facility] Comment on above: Performed By: #### L 500.4050, L7000.7000, L3100.6900, L503.5510, L503.6030, L3000.0375, L506.1000, L3100.5450, L3100.3425, L3100.1850, L3100.5440, L3890.6005, L3200.1100, L501.9520, L3300.0100, L3130.0010, L500.4100, L501.9985, L3300.0700, L100.0100, L501.6710, L803.2200, L800.1280, L300.3900, L3400.0700, L3300.1200, L503.6550 ####[facility] [address] [facility] [place], [place], [address] Chloride [Moles/Vol] 109 mmol/L High 98-107 [facility] Comment on above: Performed By: #### L 500.4050, L7000.7000, L3100.6900, L503.5510, L503.6030, L3000.0375, L506.1000, L3100.5450, L3100.3425, L3100.1850, L3100.5440, L3890.6005, L3200.1100, L501.9520, L3300.0100, L3130.0010, L500.4100, L501.9985, L3300.0700, L100.0100, L501.6710, L803.2200, L800.1280, L300.3900, L3400.0700, L3300.1200, L503.6550 ####[facility] [address] [place], [place], [id number] CO2 [Moles/Vol] 26.0 mmol/L Normal 21.0-32.0 [facility] Comment on above: Performed By: #### L 500.4050, L7000.7000, L3100.6900, L503.5510, L503.6030, L3000.0375, L506.1000, L3100.5450, L3100.3425, L3100.1850, L3100.5440, L3890.6005, L3200.1100, L501.9520, L3300.0100, L3130.0010, L500.4100, L501.9985, L3300.0700, L100.0100, L501.6710, L803.2200, L800.1280, L300.3900, L3400.0700, L3300.1200, L503.6550 ####[facility] [address] [place], [place], [phone] Creatinine [Mass/Vol] 0.89 mg/dL Normal 0.70-1.30 [facility] Comment on above: Result Comment: The validity of the calculated GFR GFRAA in patients over 70 years has not been determined. Clinical correlation is essential. Performed By: #### L 500.4050, L7000.7000, L3100.6900, L503.5510, L503.6030, L3000.0375, L506.1000, L3100.5450, L3100.3425, L3100.1850, L3100.5440, L3890.6005, L3200.1100, L501.9520, L3300.0100, L3130.0010, L500.4100, L501.9985, L3300.0700, L100.0100, L501.6710, L803.2200, L800.1280, L300.3900, L3400.0700, L3300.1200, L503.6550 ####[facility] [address] [facility] [place], [address] EST GFR - AA 110 mL/min Normal >60 [facility] Comment on above: Result Comment: Afri can Luxembourger GFR Calc Performed By: #### L 500.4050, L7000.7000, L3100.6900, L503.5510, L503.6030, L3000.0375, L506.1000, L3100.5450, L3100.3425, L3100.1850, L3100.5440, L3890.6005, L3200.1100, L501.9520, L3300.0100, L3130.0010, L500.4100, L501.9985, L3300.0700, L100.0100, L501.6710, L803.2200, L800.1280, L300.3900, L3400.0700, L3300.1200, L503.6550 ####[facility] [address] [place], [address] GAP 5 Normal 5-15 [facility] Comment on above: Performed By: #### L 500.4050, L7000.7000, L3100.6900, L503.5510, L503.6030, L3000.0375, L506.1000, L3100.5450, L3100.3425, L3100.1850, L3100.5440, L3890.6005, L3200.1100, L501.9520, L3300.0100, L3130.0010, L500.4100, L501.9985, L3300.0700, L100.0100, L501.6710, L803.2200, L800.1280, L300.3900, L3400.0700, L3300.1200, L503.6550 ####[facility] [address] [place], [address] GFR/1.73 sq M.predicted among non-blacks MDRD (S/P/Bld) [Vol rate/Area] 91 mL/min/{1.73_m2} Normal >60 [facility] Comment on above: Result Comment: Non- GFR Calc Performed By: #### L 500.4050, L7000.7000, L3100.6900, L503.5510, L503.6030, L3000.0375, L506.1000, L3100.5450, L3100.3425, L3100.1850, L3100.5440, L3890.6005, L3200.1100, L501.9520, L3300.0100, L3130.0010, L500.4100, L501.9985, L3300.0700, L100.0100, L501.6710, L803.2200, L800.1280, L300.3900, L3400.0700, L3300.1200, L503.6550 ####[facility] [address] [facility] [place], [place], [phone]) Globulin (S) [Mass/Vol] 3.3 g/dL Normal 2.2-4.2 [facility] Comment on above: Performed By: #### L 500.4050, L7000.7000, L3100.6900, L503.5510, L503.6030, L3000.0375, L506.1000, L3100.5450, L3100.3425, L3100.1850, L3100.5440, L3890.6005, L3200.1100, L501.9520, L3300.0100, L3130.0010, L500.4100, L501.9985, L3300.0700, L100.0100, L501.6710, L803.2200, L800.1280, L300.3900, L3400.0700, L3300.1200, L503.6550 ####[facility] [address] [place], [place], [id number] Glucose [Mass/Vol] 102 mg/dL Normal 74-106 [facility] Comment on above: Result Comment: Fast ing Glucose result from 100 to 125 mg/dL suggests IMPAIRED HOMEOSTASIS per A.D.A. criteria. Performed By: #### L 500.4050, L7000.7000, L3100.6900, L503.5510, L503.6030, L3000.0375, L506.1000, L3100.5450, L3100.3425, L3100.1850, L3100.5440, L3890.6005, L3200.1100, L501.9520, L3300.0100, L3130.0010, L500.4100, L501.9985, L3300.0700, L100.0100, L501.6710, L803.2200, L800.1280, L300.3900, L3400.0700, L3300.1200, L503.6550 ####[facility] [address] [place], [place], [id number] Potassium [Moles/Vol] 3.7 mmol/L Normal 3.5-5.1 [facility] Comment on above: Performed By: #### L 500.4050, L7000.7000, L3100.6900, L503.5510, L503.6030, L3000.0375, L506.1000, L3100.5450, L3100.3425, L3100.1850, L3100.5440, L3890.6005, L3200.1100, L501.9520, L3300.0100, L3130.0010, L500.4100, L501.9985, L3300.0700, L100.0100, L501.6710, L803.2200, L800.1280, L300.3900, L3400.0700, L3300.1200, L503.6550 ####[facility] [address] [place], [place], [id number] Sodium [Moles/Vol] 140 mmol/L Normal 136-145 [facility] Comment on above: Performed By: #### L 500.4050, L7000.7000, L3100.6900, L503.5510, L503.6030, L3000.0375, L506.1000, L3100.5450, L3100.3425, L3100.1850, L3100.5440, L3890.6005, L3200.1100, L501.9520, L3300.0100, L3130.0010, L500.4100, L501.9985, L3300.0700, L100.0100, L501.6710, L803.2200, L800.1280, L300.3900, L3400.0700, L3300.1200, L503.6550 ####[facility] [address] [place], [place], [address] T PROT 7.4 g/dL Normal 6.4-8.2 [facility] Comment on above: Performed By: #### L 500.4050, L7000.7000, L3100.6900, L503.5510, L503.6030, L3000.0375, L506.1000, L3100.5450, L3100.3425, L3100.1850, L3100.5440, L3890.6005, L3200.1100, L501.9520, L3300.0100, L3130.0010, L500.4100, L501.9985, L3300.0700, L100.0100, L501.6710, L803.2200, L800.1280, L300.3900, L3400.0700, L3300.1200, L503.6550 ####[facility] [address] [place], [place], [id number] Urea nitrogen [Mass/Vol] 19 mg/dL High 7-18 [facility] Comment on above: Performed By: #### L 500.4050, L7000.7000, L3100.6900, L503.5510, L503.6030, L3000.0375, L506.1000, L3100.5450, L3100.3425, L3100.1850, L3100.5440, L3890.6005, L3200.1100, L501.9520, L3300.0100, L3130.0010, L500.4100, L501.9985, L3300.0700, L100.0100, L501.6710, L803.2200, L800.1280, L300.3900, L3400.0700, L3300.1200, L503.6550 ####[facility] [address] [place], [place], [address] Ferritinon 02-29-2024 Ferritin [Mass/Vol] 54 ng/mL Normal 26-388 [facility] Comment on above: Performed By: #### L 500.4050, L7000.7000, L3100.6900, L503.5510, L503.6030, L3000.0375, L506.1000, L3100.5450, L3100.3425, L3100.1850, L3100.5440, L3890.6005, L3200.1100, L501.9520, L3300.0100, L3130.0010, L500.4100, L501.9985, L3300.0700, L100.0100, L501.6710, L803.2200, L800.1280, L300.3900, L3400.0700, L3300.1200, L503.6550 ####[facility] [address] [place], [place], [address] Gastroenterology Visit Repor ton 02-29-2024 Gastroenterology Visit Report [facility] Gastroenterology [address] [place] [address] OFFICE VISIT Date of Service: 02/29/24 MR#: [id number] Acct: [id number] Name: SRINATH PEPE YANNI Rep #: [id number] : 1960 Provider: Dr. Jasson francois MD Age/Sex: 63/M Location: [facility] Status: Signed Intake Vital Signs 10/26/21 07:41 02/29/24 08:29 Height 6 ft 4 in 6 ft 4 in Weight: 243 lb BMI 29.5 BP 156/86 H Blood Pressure Location Lt brachial Position Sitting Respiration 16 Pulse 56 L Pulse Source Monitor Temp 98.0 F Temp Source Temporal Pulse Oximetry (%) 96 Oxygen Delivery Method room air Intake Visit Reasons: Cirrhosis Chief Complaint: establish for cirrhosis Accompanied by: Self Is patient in pain?: No Allergies fluoxetine (From Prozac) Allergy (Verified 10/26/21 07:43) Hives sertraline Allergy (Verified 02/29/24 07:55) Rash doxazosin Adverse Reaction (Verified 02/29/24 07:55) Weakness oxycodone Adverse Reaction (Verified 10/26/21 07:43) HICCUPS Medications ???Medication ???Instructions ???Recorded ???Confirmed ???Type multivitamin (Multiple Vitamins 1 ea PO DAILY 09/29/16 02/29/24 History tablet) coenzyme Q10 75 mg capsule (Ultra 400 mg PO DAILY 10/26/21 02/29/24 History CoQ10) rimegepant 75 mg disintegrating 75 mg PO ONCE PRN 10/26/21 02/29/24 History tablet (Nurtec ODT) sumatriptan succinate 100 mg tablet 100 mg PO ONCE PRN 10/26/21 02/29/24 History carvedilol 6.25 mg tablet 6.25 mg PO BID 02/29/24 02/29/24 History cholecalciferol (vitamin D3) 125 125 mcg PO QDAY 02/29/24 02/29/24 History mcg (5,000 unit) tablet omeprazole 20 mg capsule,delayed 20 mg PO QDAY 02/29/24 02/29/24 History release valsartan 80 mg tablet 80 mg PO QDAY 02/29/24 02/29/24 History verapamil 180 mg tablet,extended 180 mg PO BID 02/29/24 History release vitamin B complex 1 cap PO QDAY 02/29/24 02/29/24 History PFSH Medical History Urinary incontinence, functional Hypertension Erectile dysfunction Chronic migraine Prostate cancer Thrombocytopenia Alcohol abuse Surgical History History of vasectomy History of toe surgery History of prostate biopsy History of radical prostatectomy History of total left knee replacement H/O prostatectomy History of cholecystectomy Family History Mother Arthritis Hypertension Father CAD (coronary artery disease) Heart disease Brother Cancer Liver Other Alcoholism Social History Smoking Status: Never smoker alcohol intake: former year quit: 2008 substance use type: does not use HPI HPI Chief Complaint: establish for cirrhosis Details: SRINATH PEPE, is a 63 M who presents to the office today to establish 02.29.2024 for cirrhosis of liver. Previously established with Dr. Frye for chronic liver issues. PMH alcoholic cirrhosis of liver, history of alcohol abuse, thrombocytopenia d/t liver disease, GERD. Cessation of alcohol in 2008. Omeprazole taken for GERD, symptoms under control. He is working hard with diet and exercise to lose weight. 01.05.20 CT abdomen w/ contrast- liver is heterogenous with a micronodular contour consistent with given history of cirrhosis. No definite focal lesion identified. S/P cholecystectomy. Spleen heterogenous and enlarged. Portal vein measures 1.7 cm and appears patent. A subcentimeter RIGHT renal hypodensity is too smal to accurately characterized but likey represents a cyst. A LEFT renal cycst is also shown. Small hiatal hernia. Atheroscerotic changes shown in the normal caliber aorta. Findings consistent with given history of cirrhosis with evidence of portal hypertension. 01.04.22 MRI abdomen w/wo contrast- Diffuse contour abnormality of liver consistent with cirrhotic changes. Severe splenomegaly. 11.20.22 US abdomen, Liver demonstrates heterogenous echogencity with a lobulated border. A left renal cyst measures 2.6 x 2.8 x 2.3 cm. Spleen enlarged measures 17.8 x17.9 x 5.7. EGD, trace esophageal varices. No acute complaint. Patient quit alcohol about 15 years ago in 2008. 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 Saunders till now. Last blood work from January [address] abdomen and MRI reviewed. No recent history of GI bleed, ascites, jaundice or bleeding. Cirrhosis seems compensated ROS Const Constitutional: No fever(s), decreased energy, weakness or weight change Eyes Eyes: No blurry vision, change in vision or double vision ENT ENT: No dizziness/vertigo, nosebleed/epistaxis or tongue swelling Resp Respiratory: No shortness of breath or wheezing Ca (more content not included)... Normal [facility] HIV - WCHon 02-29-2024 HIV Non-Reactive Normal Nonreactive [facility] Comment on above: Performed By: #### L 500.4050, L7000.7000, L3100.6900, L503.5510, L503.6030, L3000.0375, L506.1000, L3100.5450, L3100.3425, L3100.1850, L3100.5440, L3890.6005, L3200.1100, L501.9520, L3300.0100, L3130.0010, L500.4100, L501.9985, L3300.0700, L100.0100, L501.6710, L803.2200, L800.1280, L300.3900, L3400.0700, L3300.1200, L503.6550 ####[facility] [address] [place], [address] Hemoglobin A1con 02-29-2024 HbA1c (Bld) [Mass fraction] 5.3 % Normal 3.8-5.6 [facility] Comment on above: Result Comment: Norm al < 5.7 % Prediabetic 5.7 - 6.4 % Diabetic >or= 6.5 % Please note range changes. Performed By: #### L 500.4050, L7000.7000, L3100.6900, L503.5510, L503.6030, L3000.0375, L506.1000, L3100.5450, L3100.3425, L3100.1850, L3100.5440, L3890.6005, L3200.1100, L501.9520, L3300.0100, L3130.0010, L500.4100, L501.9985, L3300.0700, L100.0100, L501.6710, L803.2200, L800.1280, L300.3900, L3400.0700, L3300.1200, L503.6550 #### [facility] [address] [place], [address] Iron+Iron Binding Capacityon 09-27-2024 Iron [Mass/Vol] 101 ug/dL Normal 65-175 [facility] Comment on above: Performed By: #### L 500.4050, L7000.7000, L3100.6900, L503.5510, L503.6030, L3000.0375, L506.1000, L3100.5450, L3100.3425, L3100.1850, L3100.5440, L3890.6005, L3200.1100, L501.9520, L3300.0100, L3130.0010, L500.4100, L501.9985, L3300.0700, L100.0100, L501.6710, L803.2200, L800.1280, L300.3900, L3400.0700, L3300.1200, L503.6550 ####[facility] [address] [place], [address] IRON SATURATION 27.0 Normal 15.0-55.0 [facility] Comment on above: Performed By: #### L 500.4050, L7000.7000, L3100.6900, L503.5510, L503.6030, L3000.0375, L506.1000, L3100.5450, L3100.3425, L3100.1850, L3100.5440, L3890.6005, L3200.1100, L501.9520, L3300.0100, L3130.0010, L500.4100, L501.9985, L3300.0700, L100.0100, L501.6710, L803.2200, L800.1280, L300.3900, L3400.0700, L3300.1200, L503.6550 ####[facility] [address] [place], [address] TIBC 374 ug/dL Normal 250-450 [facility] Comment on above: Performed By: #### L 500.4050, L7000.7000, L3100.6900, L503.5510, L503.6030, L3000.0375, L506.1000, L3100.5450, L3100.3425, L3100.1850, L3100.5440, L3890.6005, L3200.1100, L501.9520, L3300.0100, L3130.0010, L500.4100, L501.9985, L3300.0700, L100.0100, L501.6710, L803.2200, L800.1280, L300.3900, L3400.0700, L3300.1200, L503.6550 ####[facility] [address] [place], [place], [id number] Lipid Profileon 02-29-2024 Cholesterol [Mass/Vol] 207 mg/dL High 200 [facility] Comment on above: Result Comment: <200 mg/dL Desirable 200-240 mg/dL Borderline >240 mg/dL High Risk Performed By: #### L 500.4050, L7000.7000, L3100.6900, L503.5510, L503.6030, L3000.0375, L506.1000, L3100.5450, L3100.3425, L3100.1850, L3100.5440, L3890.6005, L3200.1100, L501.9520, L3300.0100, L3130.0010, L500.4100, L501.9985, L3300.0700, L100.0100, L501.6710, L803.2200, L800.1280, L300.3900, L3400.0700, L3300.1200, L503.6550 ####[facility] [address] [facility] [place], [address] Cholesterol in HDL [Mass/Vol] 45 mg/dL Normal [facility] Comment on above: Result Comment: The drugs N-Acetylcysteine and Metamizole may falsely depress this assay. Reference Range HDL <40 mg/dL Low HDL Cholesterol HDL >or= 60 mg/dL High HDL Cholesterol Performed By: #### L 500.4050, L7000.7000, L3100.6900, L503.5510, L503.6030, L3000.0375, L506.1000, L3100.5450, L3100.3425, L3100.1850, L3100.5440, L3890.6005, L3200.1100, L501.9520, L3300.0100, L3130.0010, L500.4100, L501.9985, L3300.0700, L100.0100, L501.6710, L803.2200, L800.1280, L300.3900, L3400.0700, L3300.1200, L503.6550 ####[facility] [address] [place], [address] Cholesterol in LDL [Mass/Vol] 146 mg/dL High 0-130 [facility] Comment on above: Performed By: #### L 500.4050, L7000.7000, L3100.6900, L503.5510, L503.6030, L3000.0375, L506.1000, L3100.5450, L3100.3425, L3100.1850, L3100.5440, L3890.6005, L3200.1100, L501.9520, L3300.0100, L3130.0010, L500.4100, L501.9985, L3300.0700, L100.0100, L501.6710, L803.2200, L800.1280, L300.3900, L3400.0700, L3300.1200, L503.6550 ####[facility] [address] [place], [address] Cholesterol in VLDL [Mass/Vol] 16 mg/dL Normal 5-40 [facility] Comment on above: Performed By: #### L 500.4050, L7000.7000, L3100.6900, L503.5510, L503.6030, L3000.0375, L506.1000, L3100.5450, L3100.3425, L3100.1850, L3100.5440, L3890.6005, L3200.1100, L501.9520, L3300.0100, L3130.0010, L500.4100, L501.9985, L3300.0700, L100.0100, L501.6710, L803.2200, L800.1280, L300.3900, L3400.0700, L3300.1200, L503.6550 ####[facility] [address] [place], [place], [address] Triglyceride [Mass/Vol] 79 mg/dL Normal [facility] Comment on above: Result Comment: The drugs N-Acetylcysteine and Metamizole may falsely depress this assay. Serum Triglycerides Reference Interval Normal <150 mg/dL Borderline high 150 - 199 mg/dL High 200 - 499 mg/dL Very High > or = 500 mg/dL Performed By: #### L 500.4050, L7000.7000, L3100.6900, L503.5510, L503.6030, L3000.0375, L506.1000, L3100.5450, L3100.3425, L3100.1850, L3100.5440, L3890.6005, L3200.1100, L501.9520, L3300.0100, L3130.0010, L500.4100, L501.9985, L3300.0700, L100.0100, L501.6710, L803.2200, L800.1280, L300.3900, L3400.0700, L3300.1200, L503.6550 ####[facility] [address] [place], [place], [address] Prothrombin Time w/INRon INR Coag (PPP) [Relative time] 1.3 {INR} Normal [facility] Comment on above: Performed By: #### L 500.4050, L7000.7000, L3100.6900, L503.5510, L503.6030, L3000.0375, L506.1000, L3100.5450, L3100.3425, L3100.1850, L3100.5440, L3890.6005, L3200.1100, L501.9520, L3300.0100, L3130.0010, L500.4100, L501.9985, L3300.0700, L100.0100, L501.6710, L803.2200, L800.1280, L300.3900, L3400.0700, L3300.1200, L503.6550 ####[facility] [address] [place], [place], [id number] PT Coag (PPP) [Time] 16.6 s High 11.7-14.9 [facility] Comment on above: Performed By: #### L 500.4050, L7000.7000, L3100.6900, L503.5510, L503.6030, L3000.0375, L506.1000, L3100.5450, L3100.3425, L3100.1850, L3100.5440, L3890.6005, L3200.1100, L501.9520, L3300.0100, L3130.0010, L500.4100, L501.9985, L3300.0700, L100.0100, L501.6710, L803.2200, L800.1280, L300.3900, L3400.0700, L3300.1200, L503.6550 ####[facility] [address] [place], [place], [address] Thyroid Stim Hormone (TSH)on 02-29-2024 TSH 1.220 uIU/mL Normal 0.358-3.740 [facility] Comment on above: Performed By: #### L 500.4050, L7000.7000, L3100.6900, L503.5510, L503.6030, L3000.0375, L506.1000, L3100.5450, L3100.3425, L3100.1850, L3100.5440, L3890.6005, L3200.1100, L501.9520, L3300.0100, L3130.0010, L500.4100, L501.9985, L3300.0700, L100.0100, L501.6710, L803.2200, L800.1280, L300.3900, L3400.0700, L3300.1200, L503.6550 ####[facility] [address] [place], [place], [id number] Vitamin D,25 Hydroxyon 02-28 Vitamin D 25-OH 62.4 ng/mL Normal [facility] Comment on above: Result Comment: [place] min D 25(OH) Status Range Deficiency <20 ng/mL (50nmol/L) Insufficiency 20 - 30 ng/mL (50 - 75 nmol/L) Sufficiency 30 - 100 ng/mL (75 - 250 nmol/L) Toxicity >100 ng/mL (>250 nmol/L) Performed By: #### L 500.4050, L7000.7000, L3100.6900, L503.5510, L503.6030, L3000.0375, L506.1000, L3100.5450, L3100.3425, L3100.1850, L3100.5440, L3890.6005, L3200.1100, L501.9520, L3300.0100, L3130.0010, L500.4100, L501.9985, L3300.0700, L100.0100, L501.6710, L803.2200, L800.1280, L300.3900, L3400.0700, L3300.1200, L503.6550 ####[facility] [address] [place], [place], [id number] CNOVon 02-05-2024 CNOV Office Visit (ORMDNA ) -- SRINATH PEPE ([id number]) 1960 M Date Time Provider Department 02/05/24 9:30 AM MATEO SAWANT During your visit today, we recorded the following information about you: Mateo Sawant APRN.CNP 02/05/2024 9:50 AM Signed Orthopaedic Office Note: February 05, 2024 9:47 AM Srinath Pepe 63 year old History: Srinath is a very pleasant 63-year-old male who presents today for left knee evaluation. He is well-known to me having undergone a left total knee revision with Dr. Thomas on 11/22/2022. He is here for his 1 year follow-up. He reports no pain. He reports he has been very active on the knee doing yard work and exercising and reports no difficulties doing any activities. He is overall very happy with his progress and surgery. Subjective: Left knee 1 year follow-up Updated ROS: No changes Updated Exam: Left Lower Extremity: KNEE EXAM: Left: Incision healed without erythema or warmth Range of motion is 0 degrees in extension and 130 degrees of flexion. Pain with ROM: No Effusion: None Tender to the palpation of None Pain with patellar compression: No Stability: Anterior/Posterior stable and Varus/Valgus stable Hip Exam: flexion to 100+ degrees, full extension, internal/external rotation adequate and no pain with log roll Neurovascular Status: Sensation Intact and Moves foot and ankle up AND down Updated Imaging: Left total knee arthroplasty in appropriate position without evidence for loosening osteolysis. No fracture. Assessment and Plan: Status post left knee revision Srinath presents today for left knee follow up. X-rays show well-appearing left knee revision. Vascular exam is likely normal limits. Overall, he continues to do very well following his left knee revision surgery with Dr. Thomas. He can continue to do activities as tolerated. Should follow-up in 2 years time with repeat x-rays. APC sooner if needed. All questions answered today. Mateo Sawant APRN.CNP Orthopaedic Surgery I spent a total of approximately 15 minutes on the date of the service which included preparing to see the patient, [id number] patient care, completing clinical documentation, obtaining and/or reviewing separately obtained history, performing a medically appropriate examination, counseling and educating the patient/family/caregiver, and care coordination (not separately reported). Referring Provider: MATEO SAWANT [[id number]] Allergies As of Date: 02/05/2024 Noted Allergy Reaction OXYCODONE 08/13/2015 3 - Cough TYLENOL (ACETAMINOPHEN) 06/28/2015 14 - Other: See Comments Comments: Cannot take secondary to liver disease PROZAC (FLUOXETINE HCL) 03/14/2010 2 - Rash DOXAZOSIN 11/06/2022 14 - Other: See Comments Comments: Dizziness, lightheadedness, low BP SERTRALINE 11/06/2022 2 - Rash Date Reviewed: 02/05/2024 Reviewed by: Mateo Sawant APRN.RADIOPHONE OPERATOR - Fully Assessed Reason for Visit: Established Patient [175] Follow Up [171] Knee Pain [132] Knee Replacement [363] Post Op [174] Primary Visit Diagnosis: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 - aspirin, enteric coated (ASPIRIN, ENTERIC COATED) 81 mg EC tablet Take 1 tablet by mouth twice daily for 28 days. - Omeprazole Magnesium 20 mg tablet Take 20 mg by mouth once daily. - cholecalciferol, vitamin D3, (VITAMIN D3 ORAL) Take by mouth. - rimegepant sulfate (NURTEC ODT ORAL) Take by mouth. Takes as needed for migraines - Coenzyme Q10 400 mg cap Take by mouth. - spironolactone (ALDACTONE) 25 mg tablet Take 25 mg by mouth once daily. - valsartan (DIOVAN) 160 mg tablet Take 160 mg by mouth once daily. - SUMAtriptan (IMITREX) 100 mg tablet Take 100 mg by mouth as needed. - verapamil ER 180 mg 24 hr capsule Take 180 mg by mouth twice daily. - VITAMIN B COMPLEX ORAL Take 1 tablet by mouth once daily. - multivitamin tablet Take one(1) tablet daily. - omeprazole(PRILOSEC 20 MG CAP) Take one(1) capsule daily. Problem List As Of Date 02/05/2024 Noted Resolved Pancytopenia [284.1] 03/14/2010 Splenomegaly [R16.1] 04/04/2010 Cirrhosis [K74.60] 08/09/2011 Esophageal varices [I85.00] 08/09/2011 Arthritis of left knee [M17.12] 11/11/2013 06/28/2015 Primary osteoarthritis of left knee [M17.12] 02/26/2015 HTN (hypertension) [I10] 06/15/2015 GERD (gastroesophageal reflux disease) [K21.9] 06/15/2015 Thrombocytopenia (HCC) [D69.6] 06/15/2015 Arthritis of knee, left [M17.12] 06/28/2015 06/28/2015 Pain in left knee [M25.562] 07/05/2015 Weakness [R53.1] 07/05/2015 Difficulty in walking involving joint of pelvic*07/05/2015 Alcoholic cirrhosis of liver without ascites (H*11/21/2016 Migraine without (more content not included)... Normal [facility] XR KNEE 3V AP/LAT/MERCHANT L Ton 02-05-2024 XR KNEE 3V AP/LAT/MERCHANT LT * * *Final Report* * * DATE OF EXAM: Feb 05 2024 9:08AM KRISTOPHER 5208 - XR KNEE 3V AP/LAT/MERCHANT LT / PROCEDURE REASON: M25.562-Left knee pain, unspecified chronicity * * * * Physician Interpretation * * * * PROCEDURE: Left knee INDICATION: Left knee pain, unspecified chronicity .f/u left knee replacement TECHNIQUE: XR KNEE 3V AP/LAT/MERCHANT LT COMPARISON: 02/27/2023 FINDINGS: The total knee arthroplasty remains in satisfactory position without evidence for loosening. No periprosthetic fracture or joint effusion. IMPRESSION: Stable TKA Tax Consultant: KELECHI Transcribe Date/Time: Feb 05 2024 9:34A Dictated by : LUCY BOYD MD This examination was interpreted and the report reviewed and electronically signed by: LUCY BOYD MD on Feb 05 2024 9:34AM EST [id number] [facility] XR Knee AP and Lateral and M erchantson 02-05-2024 IMPRESSION: Stable T KA Tax Consultant: KELECHI Transcribe Date/Time: Feb 05 2024 9:34A Dictated by : LUCY BOYD MD This examination was interpreted and the report reviewed and electronically signed by: LUCY BOYD MD on Feb 05 2024 9:34AM EST [facility] * * *Final Report* * * DATE OF EXAM: Feb 05 2024 9:08AM KRISTOPHER 5208 - XR KNEE 3V AP/LAT/MERCHANT LT / PROCEDURE REASON: M25.562-Left knee pain, unspecified chronicity * * * * Physician Interpretation * * * * PROCEDURE: Left knee INDICATION: Left knee pain, unspecified chronicity .f/u left knee replacement TECHNIQUE: XR KNEE 3V AP/LAT/MERCHANT LT COMPARISON: 02/27/2023 FINDINGS: The total knee arthroplasty remains in satisfactory position without evidence for loosening. No periprosthetic fracture or joint effusion. [facility] Provider, Nabor Yancey [facility] - 02/05/2024 * * *Final Report* * * DATE OF EXAM: Feb 05 2024 9:08AM KRISTOPHER 5208 - XR KNEE 3V AP/LAT/MERCHANT LT / PROCEDURE REASON: M25.562-Left knee pain, unspecified chronicity * * * * Physician Interpretation * * * * PROCEDURE: Left knee INDICATION: Left knee pain, unspecified chronicity .f/u left knee replacement TECHNIQUE: XR KNEE 3V AP/LAT/MERCHANT LT COMPARISON: 02/27/2023 FINDINGS: The total knee arthroplasty remains in satisfactory position without evidence for loosening. No periprosthetic fracture or joint effusion. IMPRESSION IMPRESSION: Stable TKA Tax Consultant: KELECHI Transcribe Date/Time: Feb 05 2024 9:34A Dictated by : LUCY BOYD MD This examination was interpreted and the report reviewed and electronically signed by: LUCY BOYD MD on Feb 05 2024 9:34AM EST [facility] Radiology Study observation (narrative) [facility] XR Knee AP and Lateral and M erchantsOrdered By: Ccf Provider on 02-05-2024 [facility] .Auto Diffon 01-02-2024 Basophil, Absolute 0.0 10 3/mcL Normal 0.0-0.2 [facility] ([place]) Comment on above: Performed By: #### A SKYLA, CMP, CBC, ADIFF, PSA, LIPID, TSHR, GFR #### Myesha [address] [address] #### B12 #### [address] [address] Basophils/100 WBC (Bld) 0.6 % Normal 0.0-2.5 [facility] ([place]) Comment on above: Performed By: #### A SKYLA, CMP, CBC, ADIFF, PSA, LIPID, TSHR, GFR #### [address] [address] #### B12 #### [address] [address] Eosinophil, Absolute 0.0 10 3/mcL Normal 0.0-0.4 [facility] ([place]) Comment on above: Performed By: #### A SKYLA, CMP, CBC, ADIFF, PSA, LIPID, TSHR, GFR #### [place] [address] #### B12 #### [address] [address] Eosinophils/100 WBC (Bld) 1.1 % Normal 0.0-7.0 [facility] ([place]) Comment on above: Performed By: #### A SKYLA, CMP, CBC, ADIFF, PSA, LIPID, TSHR, GFR #### [place] [address] #### B12 #### [address] [address] Lymphocyte, Absolute 0.8 10 3/mcL Normal 0.8-3.9 [facility] ([place]) Comment on above: Performed By: #### A SKYLA, CMP, CBC, ADIFF, PSA, LIPID, TSHR, GFR #### [place] [address] #### B12 #### [address] [address] Lymphocytes/100 WBC (Bld) 22.7 % Normal 10.0-50.0 [facility] ([place]) Comment on above: Performed By: #### A SKYLA, CMP, CBC, ADIFF, PSA, LIPID, TSHR, GFR #### [place] [address] #### B12 #### [address] [address] Monocyte, Absolute 0.4 10 3/mcL Normal 0.2-1.0 [facility] ([place]) Comment on above: Performed By: #### A SKYLA, CMP, CBC, ADIFF, PSA, LIPID, TSHR, GFR #### [address] [address] #### B12 #### [address] [address] Monocytes/100 WBC (Bld) 11.0 % Normal 1.7-13.0 [facility] ([place]) Comment on above: Performed By: #### A SKYLA, CMP, CBC, ADIFF, PSA, LIPID, TSHR, GFR #### [address] [address] #### B12 #### [address] [address] Neutrophils/100 WBC (Bld) 64.6 % Normal 37.0-80.0 [facility] ([place]) Comment on above: Performed By: #### A SKYLA, CMP, CBC, ADIFF, PSA, LIPID, TSHR, GFR #### [address] [address] #### B12 #### [address] [address] .GFRon 01-02-2024 GFR 86 ml/min/1.73sqm Normal [facility] ([place]) Comment on above: Result Comment: GFR Population mean for , Non- Americans Ages 20-29 = 116 mL/min/1.73 sq.m. Ages 30-39 = 107 mL/min/1.73 sq.m. Ages 40-49 = 99 mL/min/1.73 sq.m. Ages 50-59 = 93 mL/min/1.73 sq.m. Ages 60-69 = 85 mL/min/1.73 sq.m. Ages 70+ = 75 mL/min/1.73 sq.m. Chronic Kidney Disease: Less than 60 mL/min/1.73 square meters End Stage Renal Disease: Less than 15 mL/min/1.73 square meters Performed By: #### A SKYLA, CMP, CBC, ADIFF, PSA, LIPID, TSHR, GFR #### [address] [address] #### B12 #### [address] [address] GFR Non- 71 ml/min/1.73sqm Normal [facility] ([place]) Comment on above: Result Comment: GFR Population mean for , Non- Americans Ages 20-29 = 116 mL/min/1.73 sq.m. Ages 30-39 = 107 mL/min/1.73 sq.m. Ages 40-49 = 99 mL/min/1.73 sq.m. Ages 50-59 = 93 mL/min/1.73 sq.m. Ages 60-69 = 85 mL/min/1.73 sq.m. Ages 70+ = 75 mL/min/1.73 sq.m. Chronic Kidney Disease: Less than 60 mL/min/1.73 square meters End Stage Renal Disease: Less than 15 mL/min/1.73 square meters Performed By: #### A SKYLA, CMP, CBC, ADIFF, PSA, LIPID, TSHR, GFR #### [address] [address] #### B12 #### [address] [address] .NEUABSon 01-02-2024 Neutrophil, Absolute 2.2 10 3/mcL Low 2.9-6.2 [facility] ([place]) Comment on above: Performed By: #### A SKYLA, CMP, CBC, ADIFF, PSA, LIPID, TSHR, GFR #### [address] [address] #### B12 #### [address] [address] B12on 01-02-2024 Cobalamin (Vitamin B12) [Mass/Vol] 605 pg/mL Normal 211-911 [facility] ([place]) Comment on above: Performed By: #### A SKYLA, CMP, CBC, ADIFF, PSA, LIPID, TSHR, GFR #### [address] [address] #### B12 #### [place] [address] CBCon 01-02-2024 Erythrocyte distribution width (RBC) [Ratio] 15.1 % High 11.5-14.5 [facility] ([place]) Comment on above: Performed By: #### A SKYLA, CMP, CBC, ADIFF, PSA, LIPID, TSHR, GFR #### [place] [address] #### B12 #### [place] [address] Hematocrit (Bld) [Volume fraction] 44.1 % Normal 42.0-52.0 [facility] ([place]) Comment on above: Performed By: #### A SKYLA, CMP, CBC, ADIFF, PSA, LIPID, TSHR, GFR #### [place] [address] #### B12 #### [place] [address] Hgb 14.9 G/dL Normal 14.0-18.0 [facility] ([place]) Comment on above: Performed By: #### A SKYLA, CMP, CBC, ADIFF, PSA, LIPID, TSHR, GFR #### [address] [address] #### B12 #### [place] [address] MCH (RBC) [Entitic mass] 29.1 pg Normal 27.0-31.2 [facility] ([place]) Comment on above: Performed By: #### A SKYLA, CMP, CBC, ADIFF, PSA, LIPID, TSHR, GFR #### [place] [address] #### B12 #### [place] [address] MCHC 33.8 G/dL Normal 31.8-35.4 [facility] ([place]) Comment on above: Performed By: #### A SKYLA, CMP, CBC, ADIFF, PSA, LIPID, TSHR, GFR #### [place] [address] #### B12 #### [place] [address] MCV (RBC) [Entitic vol] 86.3 fL Normal 80.0-94.0 [facility] ([place]) Comment on above: Performed By: #### A SKYLA, CMP, CBC, ADIFF, PSA, LIPID, TSHR, GFR #### [place] [address] #### B12 #### [place] [address] Platelet 86 10 3/mcL Low 130-400 [facility] ([place]) Comment on above: Performed By: #### A SKYLA, CMP, CBC, ADIFF, PSA, LIPID, TSHR, GFR #### [place] [address] #### B12 #### [place] [address] Platelet mean volume (Bld) [Entitic vol] 9.4 fL Normal 7.4-10.4 [facility] ([place]) Comment on above: Performed By: #### A SKYLA, CMP, CBC, ADIFF, PSA, LIPID, TSHR, GFR #### [place] [address] #### B12 #### [place] [address] RBC 5.11 10 6/mcL Normal 4.04-6.13 [facility] ([place]) Comment on above: Performed By: #### A SKYLA, CMP, CBC, ADIFF, PSA, LIPID, TSHR, GFR #### [place] [address] #### B12 #### [place] [address] WBC 3.5 10 3/mcL Low 4.6-10.8 [facility] ([place]) Comment on above: Performed By: #### A SKYLA, CMP, CBC, ADIFF, PSA, LIPID, TSHR, GFR #### [address] [address] #### B12 #### [address] [address] [facility] 01-02-2024 Albumin Level 4.0 G/dL Normal 3.4-4.8 [facility] ([place] Comment on above: Performed By: #### A SKYLA, CMP, CBC, ADIFF, PSA, LIPID, TSHR, GFR #### [address] [address] #### B12 #### [address] [address] Albumin/Globulin [Mass ratio] 1.4 {ratio} Normal 1.1-2.5 [facility] ([place]) Comment on above: Performed By: #### A SKYLA, CMP, CBC, ADIFF, PSA, LIPID, TSHR, GFR #### [place] [address] #### B12 #### [address] [address] ALP [Catalytic activity/Vol] 67 U/L Normal 40-135 [facility] ([place]) Comment on above: Performed By: #### A SKYLA, CMP, CBC, ADIFF, PSA, LIPID, TSHR, GFR #### [address] [address] #### B12 #### [address] [address] ALT [Catalytic activity/Vol] 37 U/L Normal 16-63 [facility] ([place]) Comment on above: Performed By: #### A SKYLA, CMP, CBC, ADIFF, PSA, LIPID, TSHR, GFR #### [address] [address] #### B12 #### [address] [address] AST [Catalytic activity/Vol] 24 U/L Normal 10-40 [facility] ([place]) Comment on above: Performed By: #### A SKYLA, CMP, CBC, ADIFF, PSA, LIPID, TSHR, GFR #### [address] [address] #### B12 #### [address] [address] Bili Total 1.0 mg/dL Normal 0.2-1.0 [facility] ([place]) Comment on above: Result Comment: Use of this assay is not recommended for patients undergoing treatment with eltrombopag due to the potential for falsely elevated results. Performed By: #### A SKYLA, CMP, CBC, ADIFF, PSA, LIPID, TSHR, GFR #### [place] [address] #### B12 #### [address] [address] BUN/Creatinine Ratio 22 ratio Normal 7-27 [facility] ([place]) Comment on above: Performed By: #### A SKYLA, CMP, CBC, ADIFF, PSA, LIPID, TSHR, GFR #### [place] [address] #### B12 #### [address] [address] Calcium [Mass/Vol] 9.3 mg/dL Normal 8.4-10.2 [facility] ([place]) Comment on above: Performed By: #### A SKYLA, CMP, CBC, ADIFF, PSA, LIPID, TSHR, GFR #### [place] [address] #### B12 #### [address] [address] Chloride [Moles/Vol] 108 mmol/L High 98-107 [facility] ([place]) Comment on above: Performed By: #### A SKYLA, CMP, CBC, ADIFF, PSA, LIPID, TSHR, GFR #### [address] [address] #### B12 #### [address] [address] CO2 [Moles/Vol] 26 mmol/L Normal 23-31 [facility] ([place]) Comment on above: Performed By: #### A SKYLA, CMP, CBC, ADIFF, PSA, LIPID, TSHR, GFR #### [address] [address] #### B12 #### [address] [address] Creatinine [Mass/Vol] 1.05 mg/dL Normal 0.70-1.30 [facility] ([place]) Comment on above: Performed By: #### A SKYLA, CMP, CBC, ADIFF, PSA, LIPID, TSHR, GFR #### [address] [address] #### B12 #### [address] [address] Electrolyte Balance 11.0 mEq/L Normal 4.0-15.0 [facility] ([place]) Comment on above: Performed By: #### A SKYLA, CMP, CBC, ADIFF, PSA, LIPID, TSHR, GFR #### [address] [address] #### B12 #### [address] [address] Globulin 2.9 G/dL Normal [facility] ([place]) Comment on above: Performed By: #### A SKYLA, CMP, CBC, ADIFF, PSA, LIPID, TSHR, GFR #### [address] [address] #### B12 #### [address] [address] Glucose [Mass/Vol] 94 mg/dL Normal 80-115 [facility] ([place]) Comment on above: Performed By: #### A SKYLA, CMP, CBC, ADIFF, PSA, LIPID, TSHR, GFR #### [address] [address] #### B12 #### [address] [address] Potassium [Moles/Vol] 4.1 mmol/L Normal 3.5-5.1 [facility] ([place]) Comment on above: Performed By: #### A SKYLA, CMP, CBC, ADIFF, PSA, LIPID, TSHR, GFR #### [address] [address] #### B12 #### [address] [address] Sodium [Moles/Vol] 145 mmol/L Normal 136-145 [facility] ([place]) Comment on above: Performed By: #### A SKYLA, CMP, CBC, ADIFF, PSA, LIPID, TSHR, GFR #### [address] [address] #### B12 #### [address] [address] Total Protein 6.9 G/dL Normal 6.4-8.2 [facility] ([place]) Comment on above: Performed By: #### A SKYLA, CMP, CBC, ADIFF, PSA, LIPID, TSHR, GFR #### [address] [address] #### B12 #### [address] [address] Urea nitrogen [Mass/Vol] 23 mg/dL High 7-18 [facility] ([place]) Comment on above: Performed By: #### A SKYLA, CMP, CBC, ADIFF, PSA, LIPID, TSHR, GFR #### [address] [address] #### B12 #### [address] [address] LABORATORYOrdered By: Ghada Lima on 01-02-2024 Albumin DL <= 20 mg/L (U) [Mass/Vol] 2496 mcg/dL Invalid Interpretation Code AO ADM SS Albumin/Creatinine DL <= 20 mg/L (U) [Mass ratio] 14 mcg/mg Normal 0 - 30 mcg/mg AO ADM SS Creatinine (U) [Mass/Vol] 178.7 mg/dL Normal 39.0 - 259.0 mg/dL AO ADM SS Cholesterol [Mass/Vol] 206 mg/dL High 0 - 200 mg/dL AO ADM SS Comment on above: Interpretive Data: C holesterol Reference Interval: Less than 200 Desirable 200-239 Borderline high risk 240 and above High risk Cholesterol in HDL [Mass/Vol] 50 mg/dL Normal 40 - 60 mg/dL AO ADM SS Cholesterol in LDL [Mass/Vol] 142 mg/dL High 0 - 130 mg/dL AO ADM SS Triglyceride [Mass/Vol] 71 mg/dL Normal 0 - 150 mg/dL AO ADM SS Comment on above: Interpretive Data: T riglyceride Reference Interval: Less than 150 Normal 150-199 Borderline high risk 200-499 High risk 500 or higher Very high risk LABORATORYOrdered By: SYSTEM SYSTEM on 01-02-2024 Albumin BCP dye [Mass/Vol] 4.0 G/dL Normal 3.4 - 4.8 G/dL AO ADM SS Albumin/Globulin [Mass ratio] 1.4 {ratio} Normal 1.1 - 2.5 ratio AO ADM SS ALP [Catalytic activity/Vol] 67 U/L Normal 40 - 135 U/L AO ADM SS ALT With P-5'-P [Catalytic activity/Vol] 37 U/L Normal 16 - 63 U/L AO ADM SS AST With P-5'-P [Catalytic activity/Vol] 24 U/L Normal 10 - 40 U/L AO ADM SS Basophil, Absolute 0.0 103/mcL Normal 0.0 - 0.2 10^3/mcL AO Workflow SS Basophils/100 WBC (Bld) 0.6 % Normal 0.0 - 2.5 % AO Workflow SS Bilirubin [Mass/Vol] 1.0 mg/dL Normal 0.2 - 1 .0 mg/dL AO ADM SS Comment on above: Interpretive Data: U se of this assay is not recommended for patients undergoing treatment with eltrombopag due to the potential for falsely elevated results. Calcium [Mass/Vol] 9.3 mg/dL Normal 8.4 - 10. 2 mg/dL AO ADM SS Chloride [Moles/Vol] 108 mmol/L High 98 - 10 7 mmol/L AO ADM SS CO2 [Moles/Vol] 26 mmol/L Normal 23 - 31 mmol/L AO ADM SS Cobalamin (Vitamin B12) [Mass/Vol] 605 pg/mL Normal 211 - 911 pg/mL AH ADM SS Creatinine [Mass/Vol] 1.05 mg/dL Normal 0.70 - 1.30 mg/dL AO ADM SS Electrolyte Balance 11.0 mEq/L Normal 4.0 - 15 .0 mEq/L AO ADM SS Eosinophil, Absolute 0.0 103/mcL Normal 0.0 - 0 .4 10^3/mcL AO Workflow SS Eosinophils/100 WBC (Bld) 1.1 % Normal 0.0 - 7.0 % AO Workflow SS Erythrocyte distribution width (RBC) [Ratio] 15.1 % High 11.5 - 14.5 % AO Workflow SS GFR/1.73 sq M.predicted among blacks MDRD (S/P/Bld) [Vol rate/Area] 86 ml/min/1.73sqm Invalid Interpretation Code AO Chemistry S Comment on above: Interpretive Data: GFR Population mean for , Non- Americans Ages 20-29 = 116 mL/min/1.73 sq.m. Ages 30-39 = 107 mL/min/1.73 sq.m. Ages 40-49 = 99 mL/min/1.73 sq.m. Ages 50-59 = 93 mL/min/1.73 sq.m. Ages 60-69 = 85 mL/min/1.73 sq.m. Ages 70+ = 75 mL/min/1.73 sq.m. Chronic Kidney Disease: Less than 60 mL/min/1.73 square meters End Stage Renal Disease: Less than 15 mL/min/1.73 square meters GFR/1.73 sq M.predicted among non-blacks MDRD (S/P/Bld) [Vol rate/Area] 71 ml/min/1.73sqm Invalid Interpretation Code AO Chemistry S Comment on above: Interpretive Data: GFR Population mean for , Non- Americans Ages 20-29 = 116 mL/min/1.73 sq.m. Ages 30-39 = 107 mL/min/1.73 sq.m. Ages 40-49 = 99 mL/min/1.73 sq.m. Ages 50-59 = 93 mL/min/1.73 sq.m. Ages 60-69 = 85 mL/min/1.73 sq.m. Ages 70+ = 75 mL/min/1.73 sq.m. Chronic Kidney Disease: Less than 60 mL/min/1.73 square meters End Stage Renal Disease: Less than 15 mL/min/1.73 square meters Globulin 2.9 G/dL Invalid Interpretation Code AO ADM SS Glucose [Mass/Vol] 94 mg/dL Normal 80 - 115 mg/dL AO ADM SS Hematocrit (Bld) [Volume fraction] 44.1 % Normal 42.0 - 52.0 % AO Workflow SS Hemoglobin (Bld) [Mass/Vol] 14.9 G/dL Normal 14.0 - 18.0 G/dL AO Workflow SS Lymphocyte, Absolute 0.8 103/mcL Normal 0.8 - 3 .9 10^3/mcL AO Workflow SS Lymphocytes/100 WBC (Bld) 22.7 % Normal 10.0 - 50.0 % AO Workflow SS MCH (RBC) [Entitic mass] 29.1 pg Normal 27.0 - 31.2 pg AO Workflow SS MCHC 33.8 G/dL Normal 31.8 - 35.4 G/dL AO Workflow SS MCV (RBC) [Entitic vol] 86.3 fL Normal 80.0 - 94.0 fL AO Workflow SS Monocyte, Absolute 0.4 103/mcL Normal 0.2 - 1.0 10^3/mcL AO Workflow SS Monocytes/100 WBC (Bld) 11.0 % Normal 1.7 - 13.0 % AO Workflow SS Neutrophil, Absolute 2.2 103/mcL Low 2.9 - 6 .2 10^3/mcL AO Workflow SS Neutrophils/100 WBC (Bld) 64.6 % Normal 37.0 - 80.0 % AO Workflow SS Platelet mean volume (Bld) [Entitic vol] 9.4 fL Normal 7.4 - 10.4 fL AO Workflow SS Platelets (Bld) [#/Vol] 86 103/mcL Low 130 - 400 10^3/mcL AO Workflow SS Potassium [Moles/Vol] 4.1 mmol/L Normal 3.5 - 5.1 mmol/L AO ADM SS Prostate specific Ag [Mass/Vol] ng/mL Normal 0.00 - 4.00 ng/mL AO ADM SS Protein [Mass/Vol] 6.9 G/dL Normal 6.4 - 8.2 G/dL AO ADM SS RBC (Bld) [#/Vol] 5.11 106/mcL Normal 4.04 - 6.1 3 10^6/mcL AO Workflow SS Sodium [Moles/Vol] 145 mmol/L Normal 136 - 145 mmol/L AO ADM SS TSH Qn 1.15 m[IU]/L Normal 0.36 - 3.74 mcIU/mL AO ADM SS Urea nitrogen [Mass/Vol] 23 mg/dL High 7 - 18 mg/dL AO ADM SS Urea nitrogen/Creatinine [Mass ratio] 22 ratio Normal 7 - 27 ratio AO ADM SS WBC (Bld) [#/Vol] 3.5 103/mcL Low 4.6 - 10.8 10^3/mcL AO Workflow SS LIPIDon 01-02-2024 Cholesterol [Mass/Vol] 206 mg/dL High 0-200 [facility] ([place]) Comment on above: Result Comment: Chol esterol Reference Interval: Less than 200 Desirable 200-239 Borderline high risk 240 and above High risk Performed By: #### A SKYLA, CMP, CBC, ADIFF, PSA, LIPID, TSHR, GFR #### [place] [address] #### B12 #### [address] [address] Cholesterol in HDL [Mass/Vol] 50 mg/dL Normal 40-60 [facility] ([place]) Comment on above: Performed By: #### A SKYLA, CMP, CBC, ADIFF, PSA, LIPID, TSHR, GFR #### [place] [address] #### B12 #### [address] [address] Cholesterol in LDL [Mass/Vol] 142 mg/dL High 0-130 [facility] ([place]) Comment on above: Performed By: #### A SKYLA, CMP, CBC, ADIFF, PSA, LIPID, TSHR, GFR #### [place] [address] #### B12 #### [address] [address] Triglyceride [Mass/Vol] 71 mg/dL Normal 0-150 [facility] ([place]) Comment on above: Result Comment: Trig lyceride Reference Interval: Less than 150 Normal 150-199 Borderline high risk 200-499 High risk 500 or higher Very high risk Performed By: #### A SKYLA, CMP, CBC, ADIFF, PSA, LIPID, TSHR, GFR #### [place] [id number] #### B12 #### [address] [address] MALBRon 01-02-2024 U Creatinine 178.7 mg/dL Normal 39.0-259.0 [facility] ([place]) Comment on above: Performed By: #### M ALBR #### [address] [address] U Microalb 2496 mcg/dL Normal [facility] ([place]) Comment on above: Performed By: #### M ALBR #### [address] [address] U Ratio Alb/Cre 14 mcg/mg Normal 0-30 [facility] ([place]) Comment on above: Performed By: #### M ALBR #### [address] [address] PSAon 01-02-2024 Prostate Specific Antigen <0.05 Normal 0.00-4.00 [facility] ([place]) Comment on above: Performed By: #### A SKYLA, CMP, CBC, ADIFF, PSA, LIPID, TSHR, GFR #### [address] [address] #### B12 #### [address] [address] TSHRon 01-02-2024 TSH Qn 1.15 m[IU]/L Normal 0.36-3.74 [facility] ([place]) Comment on above: Performed By: #### A SKYLA, CMP, CBC, ADIFF, PSA, LIPID, TSHR, GFR #### [address] [address] #### B12 #### [address] [address] [place] MAMMOGRAM DIAGNOSTIC BILA TERAL W/TOMOon 07-18-2023 [place] MAMMOGRAM DIAGNOSTIC BILATERAL W/JANNETH ORIGINAL FROM: [address] [address] PROCEDURE FOR: [place] [address] Home: PID#: [id number] Exam#: [id number] : 1960 Age: 62 TO: LENARD ASENCIO MD [address] [place], [place] [address] Fax: NO FAX EXAMINATION: DIAGNOSTIC BILATERAL MAMMOGRAM WITH TOMOSYNTHESIS, 07/18/2023 8:11 am TECHNIQUE: Tomosynthesis was performed as part of the diagnostic bilateral mammogram. 2D standard and 3D tomosynthesis combination imaging performed. Current study was also evaluated with a Computer Aided Detection (CAD) system. COMPARISON: None. HISTORY: ORDERING SYSTEM PROVIDED HISTORY: Reason for Exam: Breast pain and tenderness FINDINGS: BREAST DENSITY: Predominantly Fatty There is bilateral gynecomastia, greater on the right, which likely explains the patient's symptoms. No additional significant masses, calcifications, or other findings. IMPRESSION: No mammographic evidence of malignancy. Gynecomastia which likely explains the patient's symptoms. Continued clinical follow-up is recommended. BIRADS: MAMMOGRAM BI-RADS: 2: Benign finding RECALL: none RECALL TYPE: mammo LETTER SENT: Gynecomastia Interpreted by: Cele Guadalupe MD Preliminary Report By: Cele Guadalupe MD Electronically signed By Cele Guadalupe MD Dictated Date: 07/18/2023 8:46:29 AM Prelim Date: 07/18/2023 8:48:35 AM Sign Date: 07/18/2023 8:48:35 AM Ordering Provider: LENARD ASENCIO CLINICAL: BILATERAL PAIN/TENDERNESS NIPPLE AREA/ BASELINE. Advice Clerk: DINAH REYES RT(R)(M) letter sent: Gynecomastia Mammogram BI-RADS: 2 Benign Normal [facility] ([place]) Basophil percentageOrdered B y: Sarkis Mcdonald on 05-21-2023 Chloride [Moles/Vol] 110 mmol/L 98-107 [facility] Glucose [Mass/Vol] 107 mg/dL 74-106 [facility] Comment on above: Fasting Glucose resu lt from 100 to 125 mg/dL suggests IMPAIRED HOMEOSTASIS per A.D.A. criteria. Potassium [Moles/Vol] 4.2 mmol/L 3.5-5.1 [facility] Sodium [Moles/Vol] 141 mmol/L 136-145 [facility] WBC (Bld) [#/Vol] 3.4 10*3/uL 4.4-11.0 [facility] Blood erythrocytes count (nu mber/volume)Ordered By: Sarkis Mcdonald on 05-21-2023 RBC (Bld) [#/Vol] 4.87 10*6/uL 4.6-6.2 [facility] Blood hemoglobin measurement (mass/volume)Ordered By: Sarkis Mcdonald on 05-21-2023 Hemoglobin (Bld) [Mass/Vol] 14.0 g/dL 13.0-16.5 [facility] Blood platelet mean volumeOr dered By: Sarkis Mcdonald on 05-21-2023 Platelet mean volume (Bld) [Entitic vol] 11.3 fL 6.2-12.0 [facility] Determination of erythrocyte mean corpuscular volume (MCV)Ordered By: Sarkis Mcdonald on 05-21-2023 MCV (RBC) [Entitic vol] 86.0 fL 80-94 [facility] Hematocrit Auto (Bld) [Volum e fraction]Ordered By: Sarkis Mcdonald on 05-21-2023 Hematocrit (Bld) [Volume fraction] 41.9 % 40-54 [facility] - Chemistry and C hemistry - challengeOrdered By: Sarkis Mcdonald on 05-21-2023 CO2 [Moles/Vol] 26.0 mmol/L 21.0-32.0 [facility] Urea nitrogen/Creatinine [Mass ratio] 25.5 mg/mg 10-20 [facility] - Hematology and Cell countsOrdered By: Sarkis Mcdonald on 05-21-2023 Erythrocyte distribution width (RBC) [Entitic vol] 42.3 fL 35.1-43.9 [facility] Erythrocyte distribution width (RBC) [Ratio] 13.5 % 11.6-14.6 [facility] MCH (RBC) [Entitic mass] 28.7 pg 27.0-32.0 [facility] MCHC Auto (RBC) [Mass/Vol]Or dered By: Sarkis Mcdonald on 05-21-2023 MCHC (RBC) [Mass/Vol] 33.4 g/dL 32-36 [facility] No Panel InformationOrdered By: Sarkis Mcdonald on 05-21-2023 Estimated GFR (MDRD) Amer 104 mL/min >60 [facility] Comment on above: GFR Calc Estimated GFR (MDRD) Non-Af Amer 86 mL/min >60 [facility] Comment on above: Non- GFR Calc Platelets bldOrdered By: Will Mcdonald on 05-21-2023 Platelets (Bld) [#/Vol] 102 10*3/uL 150-450 [facility] Serum or plasma calcium martha urement (mass/volume)Ordered By: Sarkis Mcdonald on 05-21-2023 Calcium [Mass/Vol] 8.9 mg/dL 8.5-10.1 [facility] Serum or plasma creatinine m easurement (mass/volume)Ordered By: Sarkis Mcdonald on 05-21-2023 Creatinine [Mass/Vol] 0.94 mg/dL 0.70-1.30 [facility] Comment on above: The validity of the calculated GFR & GFRAA in patients over 70 years has not been determined. Clinical correlation is essential. Serum or plasma urea nitroge n measurement (mass/volume)Ordered By: Sarkis Mcdonald on 05-21-2023 Urea nitrogen [Mass/Vol] 24 mg/dL 12-19 [facility] Thin prep Papanicolaou smear with manual screeningOrdered By: Sarkis Mcdonald on 05-21-2023 Thin prep Papanicolaou smear with manual screening 5 5-15 [facility] PSAon 03-05-2023 Prostate Specific Antigen <0.05 Normal 0.00-4.00 [facility] ([place]) Comment on above: Performed By: #### A SKYLA, CMP, CBC, ADIFF, PSA, LIPID, TSHR, GFR #### [facility] [address], [place] [address] #### B12 #### [facility] [address] [place] [id number] XR Knee AP and Lateral and M erchantson 02-28-2023 IMPRESSION: Unchanged LEFT total knee arthroplasty. Tax Consultant: KELECHI Transcribe Date/Time: Feb 28 2023 9:29A Dictated by : JAY DUDLEY DO This examination was interpreted and the report reviewed and electronically signed by: JAY DUDLEY DO on Feb 28 2023 9:35AM EST [facility] * * *Final Report* * * DATE OF EXAM: Feb 27 2023 8:17AM KRISTOPHER 5208 - XR KNEE 3V AP/LAT/MERCHANT LT / PROCEDURE REASON: multiple diagnoses * * * * Physician Interpretation * * * * EXAMINATION: XR KNEE 3V AP/LAT/MERCHANT LT PATIENT/TECHNOLOGIST PROVIDED HISTORY: CHRONIC PAIN OF LEFT KNEE CLINICAL INFORMATION: 62 years old Male with Chronic pain of left knee. TECHNIQUE: XR KNEE 3V AP/LAT/MERCHANT LT Laterality: LEFT Number of different views (projections): 3 COMPARISON: Radiographs 01/09/2023 RESULT: Status post semi-constrained LEFT total knee arthroplasty with patellar resurfacing unchanged in alignment and position without evidence of loosening or failure. No periprosthetic fracture. Similar soft tissue swelling anteriorly. [facility] Provider, Nabor aparicio [place] - 02/28/2023 * * *Final Report* * * DATE OF EXAM: Feb 27 2023 8:17AM KRISTOPHER 5208 - XR KNEE 3V AP/LAT/MERCHANT LT / PROCEDURE REASON: multiple diagnoses * * * * Physician Interpretation * * * * EXAMINATION: XR KNEE 3V AP/LAT/MERCHANT LT PATIENT/TECHNOLOGIST PROVIDED HISTORY: CHRONIC PAIN OF LEFT KNEE CLINICAL INFORMATION: 62 years old Male with Chronic pain of left knee. TECHNIQUE: XR KNEE 3V AP/LAT/MERCHANT LT Laterality: LEFT Number of different views (projections): 3 COMPARISON: Radiographs 01/09/2023 RESULT: Status post semi-constrained LEFT total knee arthroplasty with patellar resurfacing unchanged in alignment and position without evidence of loosening or failure. No periprosthetic fracture. Similar soft tissue swelling anteriorly. IMPRESSION IMPRESSION: Unchanged LEFT total knee arthroplasty. Tax Consultant: KELECHI Transcribe Date/Time: Feb 28 2023 9:29A Dictated by : JAY DUDLEY DO This examination was interpreted and the report reviewed and electronically signed by: JAY DUDLEY DO on Feb 28 2023 9:35AM [facility] XR Knee AP and Lateral and M erchantsOrdered By: [facility] Provider on 02-28-2023 [facility] CNCOon 02-27-2023 CNCO Letter Text Normal [facility] CNOVon 02-27-2023 CNOV Office Visit (ORMDNA ) -- SRINATH PEPE ([id number]) 1960 M Date Time Provider Department 02/27/23 9:00 AM MATEO SAWANT During your visit today, we recorded the following information about you: Mateo Sawant APRN.CNP 02/27/2023 9:11 AM Signed Post-op Office Visit Srinath Pepe 62 year old February 27, 2023 9:08 AM Surgery Date: 11/22/22 History: Srinath Pepe Is now 12 weeks out from S/P Left knee revision. Post-operative course has been without complication. No readmission/complications Subjective: Patient reports no pain. Overall is doing well. No ambulatory aid No opioid pain medication Objective: Ambulates with none Incision well-healed ROM 0 - 115 Distally DP/PT palpable Distally S/S/SP/DP/T intact at baseline Distally DF/EHL/PF intact at baseline Negative ginger/calf tenderness Xrays: Left revision knee arthroplasty in appropriate position without evidence for loosening or osteolysis Assessment and Plan: Srinath Pepe Is here for repeat office visit -continued ice, rest, and use of non-narcotic analgesia as needed -discussed home exercises and slow advancement of activities -Letter to return to gym -WBAT on operative extremity -will see back at 1 year post-op for repeat exam and xrays--can see sooner if needed -discussed red flag symptoms of acutely increasing pain, new erythema, new swelling, drainage, shortness of breath Mateo Sawant APRN.CNP Orthopaedic Surgery Referring Provider: SELF [200] Allergies As of Date: 02/27/2023 Noted Allergy Reaction OXYCODONE 08/13/2015 3 - Cough TYLENOL (ACETAMINOPHEN) 06/28/2015 14 - Other: See Comments Comments: Cannot take secondary to liver disease PROZAC (FLUOXETINE HCL) 03/14/2010 2 - Rash DOXAZOSIN 11/06/2022 14 - Other: See Comments Comments: Dizziness, lightheadedness, low BP SERTRALINE 11/06/2022 2 - Rash Date Reviewed: 02/27/2023 Reviewed by: Mateo Sawant APRN.RADIOPHONE OPERATOR - Fully Assessed Reason for Visit: Established Patient [175] Follow Up [171] Post Op [174] Knee Replacement [363] ROM check [Other] Primary Visit Diagnosis: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 - aspirin, enteric coated (ASPIRIN, ENTERIC COATED) 81 mg EC tablet Take 1 tablet by mouth twice daily for 28 days. - Omeprazole Magnesium 20 mg tablet Take 20 mg by mouth once daily. - cholecalciferol, vitamin D3, (VITAMIN D3 ORAL) Take by mouth. - rimegepant sulfate (NURTEC ODT ORAL) Take by mouth. Takes as needed for migraines - Coenzyme Q10 400 mg cap Take by mouth. - spironolactone (ALDACTONE) 25 mg tablet Take 25 mg by mouth once daily. - valsartan (DIOVAN) 160 mg tablet Take 160 mg by mouth once daily. - SUMAtriptan (IMITREX) 100 mg tablet Take 100 mg by mouth as needed. - verapamil ER 180 mg 24 hr capsule Take 180 mg by mouth twice daily. - VITAMIN B COMPLEX ORAL Take 1 tablet by mouth once daily. - multivitamin tablet Take one(1) tablet daily. - omeprazole(PRILOSEC 20 MG CAP) Take one(1) capsule daily. Problem List As Of Date 02/27/2023 Noted Resolved Pancytopenia [284.1] 03/14/2010 Splenomegaly [R16.1] 04/04/2010 Cirrhosis [K74.60] 08/09/2011 Esophageal varices [I85.00] 08/09/2011 Arthritis of left knee [M17.12] 11/11/2013 06/28/2015 Primary osteoarthritis of left knee [M17.12] 02/26/2015 HTN (hypertension) [I10] 06/15/2015 GERD (gastroesophageal reflux disease) [K21.9] 06/15/2015 Thrombocytopenia (HCC) [D69.6] 06/15/2015 Arthritis of knee, left [M17.12] 06/28/2015 06/28/2015 Pain in left knee [M25.562] 07/05/2015 Weakness [R53.1] 07/05/2015 Difficulty in walking involving joint of pelvic*07/05/2015 Alcoholic cirrhosis of liver without ascites (H*11/21/2016 Migraine without aura and without status migrai*06/17/2018 Leukopenia [D72.819] 11/06/2022 History of prostate cancer [Z85.46] 11/06/2022 Aseptic loosening of prosthetic knee, 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 XR KNEE 3V AP/LAT/MERCHANT L Ton 02-27-2023 XR KNEE 3V AP/LAT/MERCHANT LT * * *Final Report* * * DATE OF EXAM: Feb 27 2023 8:17AM KRISTOPHER 5208 - XR KNEE 3V AP/LAT/MERCHANT LT / PROCEDURE REASON: multiple diagnoses * * * * Physician Interpretation * * * * EXAMINATION: XR KNEE 3V AP/LAT/MERCHANT LT PATIENT/TECHNOLOGIST PROVIDED HISTORY: CHRONIC PAIN OF LEFT KNEE CLINICAL INFORMATION: 62 years old Male with Chronic pain of left knee. TECHNIQUE: XR KNEE 3V AP/LAT/MERCHANT LT Laterality: LEFT Number of different views (projections): 3 COMPARISON: Radiographs 01/09/2023 RESULT: Status post semi-constrained LEFT total knee arthroplasty with patellar resurfacing unchanged in alignment and position without evidence of loosening or failure. No periprosthetic fracture. Similar soft tissue swelling anteriorly. IMPRESSION: Unchanged LEFT total knee arthroplasty. Tax Consultant: KELECHI Transcribe Date/Time: Feb 28 2023 9:29A Dictated by : JAY DUDLEY DO This examination was interpreted and the report reviewed and electronically signed by: JAY DUDLEY DO on Feb 28 2023 9:35AM EST [id number] Normal [facility] XR Knee AP and Lateral and M erchantson 02-27-2023 Radiology Study observation (narrative) [facility] .GFRon 02-01-2023 GFR Non- 73 ml/min/1.73sqm Normal [facility] ([place]) Comment on above: Result Comment: GFR Population mean for , Non- Americans Ages 20-29 = 116 mL/min/1.73 sq.m. Ages 30-39 = 107 mL/min/1.73 sq.m. Ages 40-49 = 99 mL/min/1.73 sq.m. Ages 50-59 = 93 mL/min/1.73 sq.m. Ages 60-69 = 85 mL/min/1.73 sq.m. Ages 70+ = 75 mL/min/1.73 sq.m. Chronic Kidney Disease: Less than 60 mL/min/1.73 square meters End Stage Renal Disease: Less than 15 mL/min/1.73 square meters Performed By: #### A SKYLA, CMP, CBC, ADIFF, PSA, LIPID, TSHR, GFR #### [address] [address] #### B12 #### [place] [address] GFR 88 ml/min/1.73sqm Normal [facility] ([place]) Comment on above: Result Comment: GFR Population mean for , Non- Americans Ages 20-29 = 116 mL/min/1.73 sq.m. Ages 30-39 = 107 mL/min/1.73 sq.m. Ages 40-49 = 99 mL/min/1.73 sq.m. Ages 50-59 = 93 mL/min/1.73 sq.m. Ages 60-69 = 85 mL/min/1.73 sq.m. Ages 70+ = 75 mL/min/1.73 sq.m. Chronic Kidney Disease: Less than 60 mL/min/1.73 square meters End Stage Renal Disease: Less than 15 mL/min/1.73 square meters Performed By: #### A SKYLA, CMP, CBC, ADIFF, PSA, LIPID, TSHR, GFR #### [place] [address] #### B12 #### [address] [address] .Manual Diffon 02-01-2023 Bands 1.0 % Normal 0.0-5.0 [facility] ([place]) Comment on above: Performed By: #### A SKYLA, CMP, CBC, ADIFF, PSA, LIPID, TSHR, GFR #### [place] [address] #### B12 #### [place] [address] Basophil %, Manual 0.0 % Normal 0.0-2.5 [facility] ([place]) Comment on above: Performed By: #### A SKYLA, CMP, CBC, ADIFF, PSA, LIPID, TSHR, GFR #### [place] [address] #### B12 #### [place] [address] Basophil, Abs Manual 0.0 10 3/mcL Normal 0.0-0.2 [facility] ([place]) Comment on above: Performed By: #### A SKYLA, CMP, CBC, ADIFF, PSA, LIPID, TSHR, GFR #### [place] [address] #### B12 #### [place] [address] Eosinophil %, Manual 4.0 % Normal 0.0-7.0 [facility] ([place]) Comment on above: Performed By: #### A SKYLA, CMP, CBC, ADIFF, PSA, LIPID, TSHR, GFR #### [place] [address] #### B12 #### [place] [address] Eosinophil, Abs Manual 0.1 10 3/mcL Normal 0.0-0.4 [facility] ([place]) Comment on above: Performed By: #### A SKYLA, CMP, CBC, ADIFF, PSA, LIPID, TSHR, GFR #### [place] [address] #### B12 #### [address] [address] Lymphocyte %, Manual 22.0 % Normal 10.0-50.0 [facility] ([place]) Comment on above: Performed By: #### A SKYLA, CMP, CBC, ADIFF, PSA, LIPID, TSHR, GFR #### [place] [address] #### B12 #### [address] [address] Lymphocyte, Abs Manual 0.7 10 3/mcL Low 0.8-3.9 [facility] ([place]) Comment on above: Performed By: #### A SKYLA, CMP, CBC, ADIFF, PSA, LIPID, TSHR, GFR #### [place] [address] #### B12 #### [address] [address] Monocyte %, Manual 10.0 % Normal 1.7-13.0 [facility] ([place]) Comment on above: Performed By: #### A SKYLA, CMP, CBC, ADIFF, PSA, LIPID, TSHR, GFR #### [place] [address] #### B12 #### [address] [address] Monocyte, Abs Manual 0.3 10 3/mcL Normal 0.2-1.0 [facility] ([place]) Comment on above: Performed By: #### A SKYLA, CMP, CBC, ADIFF, PSA, LIPID, TSHR, GFR #### [place] [address] #### B12 #### [address] [address] Neutrophil %, Manual 63.0 % Normal 37.0-80.0 [facility] ([place]) Comment on above: Performed By: #### A SKYLA, CMP, CBC, ADIFF, PSA, LIPID, TSHR, GFR #### [place] [address] #### B12 #### [place] [address] Neutrophil, Abs Manual 1.9 10 3/mcL Low 2.9-6.2 [facility] ([place]) Comment on above: Performed By: #### A SKYLA, CMP, CBC, ADIFF, PSA, LIPID, TSHR, GFR #### [place] [address] #### B12 #### [place] [address] Nucleated RBC 0.0 /100 WBC Normal [facility] ([place]) Comment on above: Performed By: #### A SKYLA, CMP, CBC, ADIFF, PSA, LIPID, TSHR, GFR #### [place] [address] #### B12 #### [place] [address] .Morphon 02-01-2023 Giant Platelets Few [facility] ([place]) Comment on above: Performed By: #### A SKYLA, CMP, CBC, ADIFF, PSA, LIPID, TSHR, GFR #### [place] [address] #### B12 #### [place] [address] Hyperseg 1+ Normal [facility] ([place]) Comment on above: Performed By: #### A SKYLA, CMP, CBC, ADIFF, PSA, LIPID, TSHR, GFR #### [place] [address] #### B12 #### [place] [address] Large Platelets Few [facility] ([place]) Comment on above: Performed By: #### A SKYLA, CMP, CBC, ADIFF, PSA, LIPID, TSHR, GFR #### [place] [address] #### B12 #### [address] [address] Platelet Estimate Decreased Normal [facility] ([place]) Comment on above: Performed By: #### A SKYLA, CMP, CBC, ADIFF, PSA, LIPID, TSHR, GFR #### [address] [address] #### B12 #### [address] [address] CBCon 02-01-2023 Erythrocyte distribution width (RBC) [Ratio] 13.6 % Normal 11.5-14.5 [facility] ([place]) Comment on above: Order Comment: today and 1 year Performed By: #### A SKYLA, CMP, CBC, ADIFF, PSA, LIPID, TSHR, GFR #### [address] [address] #### B12 #### [address] [address] Hematocrit (Bld) [Volume fraction] 37.0 % Low 42.0-52.0 [facility] ([place]) Comment on above: Order Comment: today and 1 year Performed By: #### A SKYLA, CMP, CBC, ADIFF, PSA, LIPID, TSHR, GFR #### [address] [address] #### B12 #### [place] [address] Hgb 12.4 G/dL Low 14.0-18.0 [facility] ([place]) Comment on above: Order Comment: today and 1 year Performed By: #### A SKYLA, CMP, CBC, ADIFF, PSA, LIPID, TSHR, GFR #### [address] [address] #### B12 #### [address] [address] MCH (RBC) [Entitic mass] 28.6 pg Normal 27.0-31.2 [facility] ([place] Comment on above: Order Comment: today and 1 year Performed By: #### A SKYLA, CMP, CBC, ADIFF, PSA, LIPID, TSHR, GFR #### [place] [address] #### B12 #### [place] [address] MCHC 33.5 G/dL Normal 31.8-35.4 [facility] ([place] Comment on above: Order Comment: today and 1 year Performed By: #### A SKYLA, CMP, CBC, ADIFF, PSA, LIPID, TSHR, GFR #### [place] [address] #### B12 #### [place] [address] MCV (RBC) [Entitic vol] 85.4 fL Normal 80.0-94.0 [facility] ([place] Comment on above: Order Comment: today and 1 year Performed By: #### A SKYLA, CMP, CBC, ADIFF, PSA, LIPID, TSHR, GFR #### [place] [address] #### B12 #### [place] [address] Platelet 87 10 3/mcL Low 130-400 [facility] ([place] Comment on above: Order Comment: today and 1 year Performed By: #### A SKYLA, CMP, CBC, ADIFF, PSA, LIPID, TSHR, GFR #### [place] [address] #### B12 #### [place] [address] Platelet mean volume (Bld) [Entitic vol] 8.8 fL Normal 7.4-10.4 [facility] ([place] Comment on above: Order Comment: today and 1 year Performed By: #### A SKYLA, CMP, CBC, ADIFF, PSA, LIPID, TSHR, GFR #### [place] [address] #### B12 #### [place] [address] RBC 4.33 10 6/mcL Normal 4.04-6.13 [facility] ([place] Comment on above: Order Comment: today and 1 year Performed By: #### A SKYLA, CMP, CBC, ADIFF, PSA, LIPID, TSHR, GFR #### [address] [address] #### B12 #### [address] [address] WBC 3.0 10 3/mcL Low 4.6-10.8 [facility] ([place] Comment on above: Order Comment: today and 1 year Performed By: #### A SKYLA, CMP, CBC, ADIFF, PSA, LIPID, TSHR, GFR #### [address] [address] #### B12 #### [address] [address] CMPon 02-01-2023 Albumin Level 3.9 G/dL Normal 3.4-4.8 [facility] ([place] Comment on above: Order Comment: today and 1 year Performed By: #### A SKYLA, CMP, CBC, ADIFF, PSA, LIPID, TSHR, GFR #### [place] [address] #### B12 #### [address] [address] Albumin/Globulin [Mass ratio] 1.4 {ratio} Normal 1.1-2.5 [facility] ([place] Comment on above: Order Comment: today and 1 year Performed By: #### A SKYLA, CMP, CBC, ADIFF, PSA, LIPID, TSHR, GFR #### [address] [address] #### B12 #### [address] [address] ALP [Catalytic activity/Vol] 69 U/L Normal 40-135 [facility] ([place]) Comment on above: Order Comment: today and 1 year Performed By: #### A SKYLA, CMP, CBC, ADIFF, PSA, LIPID, TSHR, GFR #### [address] [address] #### B12 #### [address] [address] ALT [Catalytic activity/Vol] 35 U/L Normal 16-63 [facility] ([place] Comment on above: Order Comment: today and 1 year Performed By: #### A SKYLA, CMP, CBC, ADIFF, PSA, LIPID, TSHR, GFR #### [address] [address] #### B12 #### [address] [address] AST [Catalytic activity/Vol] 24 U/L Normal 10-40 [facility] ([place] Comment on above: Order Comment: today and 1 year Performed By: #### A SKYLA, CMP, CBC, ADIFF, PSA, LIPID, TSHR, GFR #### [address] [address] #### B12 #### [address] [address] Bili Total 0.4 mg/dL Normal 0.2-1.0 [facility] ([place]) Comment on above: Order Comment: today and 1 year Result Comment: Use of this assay is not recommended for patients undergoing treatment with eltrombopag due to the potential for falsely elevated results. Performed By: #### A SKYLA, CMP, CBC, ADIFF, PSA, LIPID, TSHR, GFR #### [address] [address] #### B12 #### [address] [address] BUN/Creatinine Ratio 25 ratio Normal 7-27 [facility] ([place]) Comment on above: Order Comment: today and 1 year Performed By: #### A SKYLA, CMP, CBC, ADIFF, PSA, LIPID, TSHR, GFR #### [address] [address] #### B12 #### [address] [address] Calcium [Mass/Vol] 8.7 mg/dL Normal 8.4-10.2 [facility] ([place]) Comment on above: Order Comment: today and 1 year Performed By: #### A SKYLA, CMP, CBC, ADIFF, PSA, LIPID, TSHR, GFR #### [address] [address] #### B12 #### [address] [address] Chloride [Moles/Vol] 106 mmol/L Normal 98-107 [facility] ([place] Comment on above: Order Comment: today and 1 year Performed By: #### A SKYLA, CMP, CBC, ADIFF, PSA, LIPID, TSHR, GFR #### [place] [address] #### B12 #### [place] [address] CO2 [Moles/Vol] 26 mmol/L Normal 23-31 [facility] ([place] Comment on above: Order Comment: today and 1 year Performed By: #### A SKYLA, CMP, CBC, ADIFF, PSA, LIPID, TSHR, GFR #### [place] [address] #### B12 #### [place] [address] Creatinine [Mass/Vol] 1.03 mg/dL Normal 0.70-1.30 [facility] ([place]) Comment on above: Order Comment: today and 1 year Performed By: #### A SKYLA, CMP, CBC, ADIFF, PSA, LIPID, TSHR, GFR #### [place] [address] #### B12 #### [place] [address] Electrolyte Balance 8.0 mEq/L Normal 4.0-15.0 [facility] ([place]) Comment on above: Order Comment: today and 1 year Performed By: #### A SKYLA, CMP, CBC, ADIFF, PSA, LIPID, TSHR, GFR #### [place] [address] #### B12 #### [place] [address] Globulin 2.8 G/dL Normal [facility] ([place]) Comment on above: Order Comment: today and 1 year Performed By: #### A SKYLA, CMP, CBC, ADIFF, PSA, LIPID, TSHR, GFR #### [address] [address] #### B12 #### [address] [address] Glucose [Mass/Vol] 110 mg/dL Normal 80-115 [facility] ([place]) Comment on above: Order Comment: today and 1 year Performed By: #### A SKYLA, CMP, CBC, ADIFF, PSA, LIPID, TSHR, GFR #### [address] [address] #### B12 #### [address] [address] Potassium [Moles/Vol] 4.1 mmol/L Normal 3.5-5.1 [facility] ([place]) Comment on above: Order Comment: today and 1 year Performed By: #### A SKYLA, CMP, CBC, ADIFF, PSA, LIPID, TSHR, GFR #### [address] [address] #### B12 #### [address] [address] Sodium [Moles/Vol] 140 mmol/L Normal 136-145 [facility] ([place]) Comment on above: Order Comment: today and 1 year Performed By: #### A SKYLA, CMP, CBC, ADIFF, PSA, LIPID, TSHR, GFR #### [address] [address] #### B12 #### [address] [address] Total Protein 6.7 G/dL Normal 6.4-8.2 [facility] ([place]) Comment on above: Order Comment: today and 1 year Performed By: #### A SKYLA, CMP, CBC, ADIFF, PSA, LIPID, TSHR, GFR #### [address] [address] #### B12 #### [address] [address] Urea nitrogen [Mass/Vol] 26 mg/dL High 7-18 [facility] ([place]) Comment on above: Order Comment: today and 1 year Performed By: #### A SKYLA, CMP, CBC, ADIFF, PSA, LIPID, TSHR, GFR #### [address] [address] #### B12 #### [address] [address] Guillermo 02-01-2023 Ferritin [Mass/Vol] 192.0 ng/mL Normal 26.0-388.0 [facility] ([place]) Comment on above: Order Comment: today and 1 year Performed By: #### A SKYLA, CMP, CBC, ADIFF, PSA, LIPID, TSHR, GFR #### [address] [address] #### B12 #### [address] [address] FESon 02-01-2023 Iron [Mass/Vol] 44 ug/dL Low 65-175 [facility] ([place]) Comment on above: Order Comment: today and 1 year Performed By: #### A SKYLA, CMP, CBC, ADIFF, PSA, LIPID, TSHR, GFR #### [address] [address] #### B12 #### [address] [address] Iron Sat 17 % Normal [facility] ([place] Comment on above: Order Comment: today and 1 year Performed By: #### A SKYLA, CMP, CBC, ADIFF, PSA, LIPID, TSHR, GFR #### [address] [address] #### B12 #### [place] [address] TIBC 256 mcg/dL Normal 250-450 [facility] ([place] Comment on above: Order Comment: today and 1 year Performed By: #### A SKYLA, CMP, CBC, ADIFF, PSA, LIPID, TSHR, GFR #### [address] [address] #### B12 #### [place] [address] LABORATORYOrdered By: SYSTEM SYSTEM on 02-01-2023 Albumin BCP dye [Mass/Vol] 3.9 G/dL Invalid Interpretation Code 3.4 - 4.8 G/dL AO ADM SS Albumin/Globulin [Mass ratio] 1.4 {ratio} Invalid Interpretation Code 1.1 - 2.5 ratio AO ADM SS ALP [Catalytic activity/Vol] 69 U/L Invalid Interpretation Code 40 - 135 U/L AO ADM SS ALT With P-5'-P [Catalytic activity/Vol] 35 U/L Invalid Interpretation Code 16 - 63 U/L AO ADM SS AST With P-5'-P [Catalytic activity/Vol] 24 U/L Invalid Interpretation Code 10 - 40 U/L AO ADM SS Bands 1.0 1 Invalid Interpretation Code 0.0 - 5.0 % AO Workflow SS Basophil %, Manual 0.0 1 Invalid Interpretation Code 0.0 - 2.5 % AO Workflow SS Basophil, Abs Manual 0.0 103/mcL Invalid Interpretation Code 0.0 - 0.2 10^3/mcL AO Workflow SS Bilirubin [Mass/Vol] 0.4 mg/dL Invalid Interpretation Code 0.2 - 1.0 mg/dL AO ADM SS Comment on above: Interpretive Data: U se of this assay is not recommended for patients undergoing treatment with eltrombopag due to the potential for falsely elevated results. Calcium [Mass/Vol] 8.7 mg/dL Invalid Interpretation Code 8.4 - 10.2 mg/dL AO ADM SS Chloride [Moles/Vol] 106 mmol/L Invalid Interpretation Code 98 - 107 mmol/L AO ADM SS CO2 [Moles/Vol] 26 mmol/L Invalid Interpretation Code 23 - 31 mmol/L AO ADM SS Creatinine [Mass/Vol] 1.03 mg/dL Invalid Interpretation Code 0.70 - 1.30 mg/dL AO ADM SS Electrolyte Balance 8.0 mEq/L Invalid Interpretation Code 4.0 - 15.0 mEq/L AO ADM SS Eosinophil %, Manual 4.0 1 Invalid Interpretation Code 0.0 - 7.0 % AO Workflow SS Eosinophils (Bld) [#/Vol] 0.1 103/mcL Invalid Interpretation Code 0.0 - 0.4 10^3/mcL AO Workflow SS Erythrocyte distribution width (RBC) [Ratio] 13.6 % Invalid Interpretation Code 11.5 - 14.5 % AO Workflow SS Ferritin [Mass/Vol] 192.0 ng/mL Invalid Interpretation Code 26.0 - 388.0 ng/mL AO ADM SS GFR/1.73 sq M.predicted among blacks MDRD (S/P/Bld) [Vol rate/Area] 88 ml/min/1.73sqm Invalid Interpretation Code AO Chemistry S Comment on above: Interpretive Data: GFR Population mean for , Non- Americans Ages 20-29 = 116 mL/min/1.73 sq.m. Ages 30-39 = 107 mL/min/1.73 sq.m. Ages 40-49 = 99 mL/min/1.73 sq.m. Ages 50-59 = 93 mL/min/1.73 sq.m. Ages 60-69 = 85 mL/min/1.73 sq.m. Ages 70+ = 75 mL/min/1.73 sq.m. Chronic Kidney Disease: Less than 60 mL/min/1.73 square meters End Stage Renal Disease: Less than 15 mL/min/1.73 square meters GFR/1.73 sq M.predicted among non-blacks MDRD (S/P/Bld) [Vol rate/Area] 73 ml/min/1.73sqm Invalid Interpretation Code AO Chemistry S Comment on above: Interpretive Data: GFR Population mean for , Non- Americans Ages 20-29 = 116 mL/min/1.73 sq.m. Ages 30-39 = 107 mL/min/1.73 sq.m. Ages 40-49 = 99 mL/min/1.73 sq.m. Ages 50-59 = 93 mL/min/1.73 sq.m. Ages 60-69 = 85 mL/min/1.73 sq.m. Ages 70+ = 75 mL/min/1.73 sq.m. Chronic Kidney Disease: Less than 60 mL/min/1.73 square meters End Stage Renal Disease: Less than 15 mL/min/1.73 square meters Giant Platelets Few *NA* (02/01/23 4:12 PM) Invalid Interpretation Code AO Workflow SS Globulin 2.8 G/dL Invalid Interpretation Code AO ADM SS Glucose [Mass/Vol] 110 mg/dL Invalid Interpretation Code 80 - 115 mg/dL AO ADM SS Hematocrit (Bld) [Volume fraction] 37.0 % Invalid Interpretation Code 42.0 - 52.0 % AO Workflow SS Hemoglobin (Bld) [Mass/Vol] 12.4 G/dL Invalid Interpretation Code 14.0 - 18.0 G/dL AO Workflow SS Iron [Mass/Vol] 44 ug/dL Invalid Interpretation Code 65 - 175 mcg/dL AO ADM SS Iron binding capacity [Mass/Vol] 256 mcg/dL Invalid Interpretation Code 250 - 450 mcg/dL AO ADM SS Iron Sat 17 1 Invalid Interpretation Code AO ADM SS Large Platelets Few *NA* (02/01/23 4:12 PM) Invalid Interpretation Code AO Workflow SS LDH [Catalytic activity/Vol] 142 U/L Invalid Interpretation Code 85 - 227 U/L AO ADM SS Lymphocyte %, Manual 22.0 1 Invalid Interpretation Code 10.0 - 50.0 % AO Workflow SS Lymphocyte, Abs Manual 0.7 103/mcL Invalid Interpretation Code 0.8 - 3.9 10^3/mcL AO Workflow SS MCH (RBC) [Entitic mass] 28.6 pg Invalid Interpretation Code 27.0 - 31.2 pg AO Workflow SS MCHC 33.5 G/dL Invalid Interpretation Code 31.8 - 35.4 G/dL AO Workflow SS MCV (RBC) [Entitic vol] 85.4 fL Invalid Interpretation Code 80.0 - 94.0 fL AO Workflow SS Monocyte %, Manual 10.0 1 Invalid Interpretation Code 1.7 - 13.0 % AO Workflow SS Monocyte, Abs Manual 0.3 103/mcL Invalid Interpretation Code 0.2 - 1.0 10^3/mcL AO Workflow SS Neutrophil %, Manual 63.0 1 Invalid Interpretation Code 37.0 - 80.0 % AO Workflow SS Neutrophil, Abs Manual 1.9 103/mcL Invalid Interpretation Code 2.9 - 6.2 10^3/mcL AO Workflow SS Neutrophils.hypersegm ented LM Ql (Bld) 1+ *NA* (02/01/23 4:12 PM) Invalid Interpretation Code AO Workflow SS Nucleated RBC 0.0 /100 WBC Invalid Interpretation Code AO Workflow SS Platelet Estimate Decreased *NA* (02/01/23 4:12 PM) Invalid Interpretation Code AO Workflow SS Platelet mean volume (Bld) [Entitic vol] 8.8 fL Invalid Interpretation Code 7.4 - 10.4 fL AO Workflow SS Platelets (Bld) [#/Vol] 87 103/mcL Invalid Interpretation Code 130 - 400 10^3/mcL AO Workflow SS Potassium [Moles/Vol] 4.1 mmol/L Invalid Interpretation Code 3.5 - 5.1 mmol/L AO ADM SS Protein [Mass/Vol] 6.7 G/dL Invalid Interpretation Code 6.4 - 8.2 G/dL AO ADM SS RBC (Bld) [#/Vol] 4.33 106/mcL Invalid Interpretation Code 4.04 - 6.13 10^6/mcL AO Workflow SS Sodium [Moles/Vol] 140 mmol/L Invalid Interpretation Code 136 - 145 mmol/L AO ADM SS Urea nitrogen [Mass/Vol] 26 mg/dL Invalid Interpretation Code 7 - 18 mg/dL AO ADM SS Urea nitrogen/Creatinine [Mass ratio] 25 ratio Invalid Interpretation Code 7 - 27 ratio AO ADM SS WBC (Bld) [#/Vol] 3.0 103/mcL Invalid Interpretation Code 4.6 - 10.8 10^3/mcL AO Workflow SS LDHon 02-01-2023 LDH 142 U/L Normal 85-227 [facility] ([place]) Comment on above: Order Comment: today and 1 year Performed By: #### A SKYLA, CMP, CBC, ADIFF, PSA, LIPID, TSHR, GFR #### [facility] [address], [place] [address] #### B12 #### [facility] [address] [place] [id number] XR Knee AP and Lateral and M erchantson 01-09-2023 IMPRESSION: Postsurg ical changes without complication. Tax Consultant: PSCB Transcribe Date/Time: Jan 09 2023 5:05P Dictated by : GAB BARAHONA MD This examination was interpreted and the report reviewed and electronically signed by: GAB BARAHONA MD on Jan 09 2023 5:06PM [facility] * * *Final Report* * * DATE OF EXAM: Jan 09 2023 11:06AM KRISTOPHER 5208 - XR KNEE 3V AP/LAT/MERCHANT LT / PROCEDURE REASON: multiple diagnoses * * * * Physician Interpretation * * * * History: Chronic left knee pain FINDINGS: AP, lateral, and merchant views of the left knee are compared to the prior study of 12/07/2022. Patient has had prior left knee arthroplasty place, hardware intact and alignment satisfactory. No evidence of hardware loosening or acute bony process is seen. Prepatellar edema noted. [facility] Provider, Nabor aparicio [place] - 01/09/2023 * * *Final Report* * * DATE OF EXAM: Jan 09 2023 11:06AM KRISTOPHER 5208 - XR KNEE 3V AP/LAT/MERCHANT LT / PROCEDURE REASON: multiple diagnoses * * * * Physician Interpretation * * * * History: Chronic left knee pain FINDINGS: AP, lateral, and merchant views of the left knee are compared to the prior study of 12/07/2022. Patient has had prior left knee arthroplasty place, hardware intact and alignment satisfactory. No evidence of hardware loosening or acute bony process is seen. Prepatellar edema noted. IMPRESSION IMPRESSION: Postsurgical changes without complication. Tax Consultant: KELECHI Transcribe Date/Time: Jan 09 2023 5:05P Dictated by : GAB BARAHONA MD This examination was interpreted and the report reviewed and electronically signed by: GAB BARAHONA MD on Jan 09 2023 5:06PM EST [facility] Radiology Study observation (narrative) [facility] XR Knee AP and Lateral and M erchantsOrdered By: Ccf Provider on 01-09-2023 [facility] XR Knee - left AP and Latera damien 12-07-2022 IMPRESSION: Left total knee arthroplasty without complication. Tax Consultant: PSCKera Transcribe Date/Time: Dec 07 2022 1:31P Dictated by : ENRIQUE SPARKS DO This examination was interpreted and the report reviewed and electronically signed by: ENRIQUE SPARKS DO on Dec 07 2022 1:34PM EST [facility] * * *Final Report* * * DATE OF EXAM: Dec 07 2022 10:52AM KRISTOPHER 5206 - XR KNEE 2V AP/LAT LT / PROCEDURE REASON: multiple diagnoses * * * * Physician Interpretation * * * * EXAMINATION: XR KNEE 2V AP/LAT LT CLINICAL HISTORY: 1ST POST-OP FOLLOW-UP FOR LEFT KNEE Chronic pain of left knee Chronic pain of left knee Technique: XR KNEE 2V AP/LAT LT -- LEFT with 2 views on 2 images Comparison: 11/22/2022 RESULT: Constrained left knee arthroplasty is unchanged in position and alignment. No evidence of hardware failure or loosening. No fracture or dislocation. Small knee effusion. Anterior knee soft tissue swelling. Resolved postoperative soft tissue gas. [facility] Provider, Nabor Vo - 12/07/2022 * * *Final Report* * * DATE OF EXAM: Dec 07 2022 10:52AM KRISTOPHER 5206 - XR KNEE 2V AP/LAT LT / PROCEDURE REASON: multiple diagnoses * * * * Physician Interpretation * * * * EXAMINATION: XR KNEE 2V AP/LAT LT CLINICAL HISTORY: 1ST POST-OP FOLLOW-UP FOR LEFT KNEE Chronic pain of left knee Chronic pain of left knee Technique: XR KNEE 2V AP/LAT LT -- LEFT with 2 views on 2 images Comparison: 11/22/2022 RESULT: Constrained left knee arthroplasty is unchanged in position and alignment. No evidence of hardware failure or loosening. No fracture or dislocation. Small knee effusion. Anterior knee soft tissue swelling. Resolved postoperative soft tissue gas. IMPRESSION IMPRESSION: Left total knee arthroplasty without complication. Tax Consultant: PSCKera Transcribe Date/Time: Dec 07 2022 1:31P Dictated by : ENRIQUE SPARKS DO This examination was interpreted and the report reviewed and electronically signed by: ENRIQUE SPARKS DO on Dec 07 2022 1:34PM [facility] Radiology Study observation (narrative) [facility] XR Knee - left AP and Latera lOrdered By: Ccf Provider on 12-07-2022 [facility] LABORATORYOrdered By: SYSTEM SYSTEM on 11-20-2022 AFP [Mass/Vol] 5.5 ng/mL Invalid Interpretation Code 0.0 - 8.5 ng/mL AH ADM SS LABORATORYOrdered By: Dragan Ye on 11-20-2022 aPTT Coag (PPP) [Time] 32.8 s Invalid Interpretation Code 25.0 - 35.0 seconds AO [facility] SS Heparin dose (APTT) Unknown (11/20/22 3:49 PM) Invalid Interpretation Code AO [facility] SS INR Coag (PPP) [Relative time] 1.2 {INR} Invalid Interpretation Code AO [facility] SS PT Coag (PPP) [Time] 13.4 s Invalid Interpretation Code 9.1 - 14.2 seconds AO [facility] SS CBC W Auto Differential pane l (Bld)on 11-06-2022 Basophils (Bld) [#/Vol] <0.11 k/uL [facility] Basophils/100 WBC (Bld) 0.6 % [facility] Differential cell count method Nom (Bld) Auto [facility] Eosinophils (Bld) [#/Vol] 0.04 10*3/uL <0.46 k/uL [facility] Eosinophils/100 WBC (Bld) 1.3 % [facility] Erythrocyte distribution width (RBC) [Ratio] 13.5 % 11.5 - 15.0 % [facility] Hematocrit (Bld) [Volume fraction] 39.8 % 39.0 - 51.0 % [facility] Hemoglobin (Bld) [Mass/Vol] 13.5 g/dL 13.0 - 17.0 g/dL [facility] Immature granulocytes (Bld) [#/Vol] <0.10 k/uL [facility] Immature granulocytes/100 WBC (Bld) 0.3 % [facility] Lymphocytes (Bld) [#/Vol] 0.67 10*3/uL Low 1.00 - 4.00 k/uL [facility] Lymphocytes/100 WBC (Bld) 21.2 % [facility] MCH (RBC) [Entitic mass] 29.5 pg 26.0 - 34.0 pg [facility] MCHC (RBC) [Mass/Vol] 33.9 g/dL 30.5 - 36.0 g/dL [facility] MCV (RBC) [Entitic vol] 86.9 fL 80.0 - 100.0 fL [facility] Monocytes (Bld) [#/Vol] 0.34 10*3/uL <0.87 k/uL [facility] Monocytes/100 WBC (Bld) 10.8 % [facility] Neutrophils (Bld) [#/Vol] 2.08 10*3/uL 1.45 - 7.50 k/uL [facility] Neutrophils/100 WBC (Bld) 65.8 % [facility] Nucleated RBC (Bld) [#/Vol] <0.01 k/uL [facility] Nucleated RBC/100 WBC (Bld) [Ratio] 0.0 /100 WBC [facility] Platelet mean volume (Bld) [Entitic vol] 10.4 fL 9.0 - 12.7 fL [facility] Platelets (Bld) [#/Vol] 85 10*3/uL Low 150 - 400 k/uL [facility] RBC (Bld) [#/Vol] 4.58 10*6/uL 4.20 - 6.0 0 m/uL [facility] WBC (Bld) [#/Vol] 3.16 10*3/uL Low 3.70 - 11. 00 k/uL [facility] Comprehensive metabolic 2000 panelon 11-06-2022 Albumin [Mass/Vol] 4.3 g/dL 3.9 - 4.9 g/dL [facility] ALP [Catalytic activity/Vol] 57 U/L 38 - 113 U/L [facility] ALT [Catalytic activity/Vol] 27 U/L 10 - 54 U/L [facility] Anion gap [Moles/Vol] 10 mmol/L 9 - 18 mmol/L [facility] AST [Catalytic activity/Vol] 27 U/L 14 - 40 U/L [facility] Bilirubin [Mass/Vol] 0.4 mg/dL 0.2 - 1 .3 mg/dL [facility] Calcium [Mass/Vol] 9.2 mg/dL 8.5 - 10. 2 mg/dL [facility] Chloride [Moles/Vol] 106 mmol/L High 97 - 10 5 mmol/L [facility] CO2 [Moles/Vol] 23 mmol/L 22 - 30 mmol/L [facility] Creatinine [Mass/Vol] 0.91 mg/dL 0.73 - 1.22 mg/dL [facility] Estimated Glomerular Filtration Rate 95 mL/min/1.73m >=60 mL/min/1.73m [facility] Glucose [Mass/Vol] 115 mg/dL High 74 - 99 mg/dL [facility] Potassium [Moles/Vol] 4.5 mmol/L 3.7 - 5.1 mmol/L [facility] Protein [Mass/Vol] 6.3 g/dL 6.3 - 8.0 g/dL [facility] Sodium [Moles/Vol] 139 mmol/L 136 - 144 mmol/L [facility] Urea nitrogen [Mass/Vol] 32 mg/dL High 9 - 24 mg/dL [facility] No Panel Informationon 10-02 [facility] LABORATORYOrdered By: SYSTEM SYSTEM on 06-09-2022 AFP [Mass/Vol] 4.0 ng/mL Invalid Interpretation Code 0.0 - 8.5 ng/mL ADM SS Albumin BCP dye [Mass/Vol] 4.0 G/dL Invalid Interpretation Code 3.2 - 4.8 G/dL ADM SS Albumin/Globulin [Mass ratio] 1.5 {ratio} Invalid Interpretation Code 0.9 - 1.6 ratio AH ADM SS ALP [Catalytic activity/Vol] 64 U/L Invalid Interpretation Code 38 - 126 U/L ADM SS ALT No additional P-5'-P [Catalytic activity/Vol] 39 U/L Invalid Interpretation Code 12 - 55 U/L ADM SS AST [Catalytic activity/Vol] 32 U/L Invalid Interpretation Code 8 - 34 U/L ADM SS Basophils (Bld) [#/Vol] 0.0 103/mcL Invalid Interpretation Code 0.0 - 0.3 10^3/mcL AH Workflow SS Basophils/100 WBC (Bld) 0.5 % Invalid Interpretation Code 0.0 - 2.5 % Workflow SS Bilirubin [Mass/Vol] 0.70 mg/dL Invalid Interpretation Code 0.20 - 1.20 mg/dL ADM SS Calcium [Mass/Vol] 9.4 mg/dL Invalid Interpretation Code 8.7 - 10.4 mg/dL ADM SS Chloride [Moles/Vol] 107 mmol/L Invalid Interpretation Code 98 - 110 mEq/L ADM SS CO2 [Moles/Vol] 23 mmol/L Invalid Interpretation Code 22 - 32 mEq/L ADM SS Creatinine [Mass/Vol] 0.95 mg/dL Invalid Interpretation Code 0.60 - 1.40 mg/dL ADM SS Electrolyte Balance 9.0 mEq/L Invalid Interpretation Code 4.0 - 15.0 mEq/L ADM SS Eosinophils (Bld) [#/Vol] 0.0 103/mcL Invalid Interpretation Code 0.0 - 0.7 10^3/mcL AH Workflow SS Eosinophils/100 WBC (Bld) 1.0 % Invalid Interpretation Code 0.0 - 6.0 % AH Workflow SS Erythrocyte distribution width (RBC) [Ratio] 14.5 % Invalid Interpretation Code 11.5 - 15.5 % Workflow SS Ferritin [Mass/Vol] 156.4 ng/mL Invalid Interpretation Code 26.0 - 388.0 ng/mL ADM SS GFR/1.73 sq M.predicted among blacks MDRD (S/P/Bld) [Vol rate/Area] ml/min/1.73sqm Invalid Interpretation Code Chemistry S GFR/1.73 sq M.predicted among non-blacks MDRD (S/P/Bld) [Vol rate/Area] ml/min/1.73sqm Invalid Interpretation Code Chemistry S Globulin 2.7 G/dL Invalid Interpretation Code 1.5 - 3.8 G/dL ADM SS Glucose [Mass/Vol] 129 mg/dL Invalid Interpretation Code 82 - 115 mg/dL ADM SS Hematocrit (Bld) [Volume fraction] 43.8 % Invalid Interpretation Code 40.0 - 52.0 % Workflow SS Hemoglobin (Bld) [Mass/Vol] 14.8 G/dL Invalid Interpretation Code 13.0 - 17.5 G/dL Workflow SS Iron [Mass/Vol] 108 ug/dL Invalid Interpretation Code 65 - 175 mcg/dL ADM SS Iron binding capacity [Mass/Vol] 305 mcg/dL Invalid Interpretation Code 250 - 500 mcg/dL ADM SS Iron saturation [Mass fraction] 35 1 Invalid Interpretation Code ADM SS LDH Lactate to pyruvate reaction [Catalytic activity/Vol] 147 1 Invalid Interpretation Code 120 - 246 U/L ADM SS Lymphocytes (Bld) [#/Vol] 0.7 103/mcL Invalid Interpretation Code 0.9 - 4.3 10^3/mcL Workflow SS Lymphocytes/100 WBC (Bld) 17.0 % Invalid Interpretation Code 20.0 - 40.0 % Workflow SS MCH (RBC) [Entitic mass] 29.1 pg Invalid Interpretation Code 27.0 - 33.0 pg Workflow SS MCHC 33.9 G/dL Invalid Interpretation Code 32.0 - 36.0 G/dL Workflow SS MCV (RBC) [Entitic vol] 85.9 fL Invalid Interpretation Code 81.0 - 100.0 fL Workflow SS Monocytes (Bld) [#/Vol] 0.3 103/mcL Invalid Interpretation Code 0.1 - 1.4 10^3/mcL Workflow SS Monocytes/100 WBC (Bld) 7.6 % Invalid Interpretation Code 2.0 - 13.0 % Workflow SS Neutrophils (Bld) [#/Vol] 3.0 103/mcL Invalid Interpretation Code 2.3 - 8.1 10^3/mcL AH Workflow SS Neutrophils/100 WBC (Bld) 73.9 % Invalid Interpretation Code 50.0 - 75.0 % AH Workflow SS Platelet mean volume (Bld) [Entitic vol] 9.1 fL Invalid Interpretation Code 6.4 - 10.5 fL AH Workflow SS Platelets (Bld) [#/Vol] 94 103/mcL Invalid Interpretation Code 150 - 450 10^3/mcL AH Workflow SS Potassium [Moles/Vol] 4.2 mmol/L Invalid Interpretation Code 3.5 - 5.0 mEq/L AH ADM SS Comment on above: Result Comment: Spec imen slightly hemolyzed. Prostate specific Ag [Mass/Vol] ng/mL Invalid Interpretation Code 0.02 - 4.00 ng/mL AH ADM SS Protein [Mass/Vol] 6.7 G/dL Invalid Interpretation Code 5.7 - 8.2 G/dL AH ADM SS RBC (Bld) [#/Vol] 5.10 106/mcL Invalid Interpretation Code 4.50 - 6.00 10^6/mcL AH Workflow SS Sodium [Moles/Vol] 139 mmol/L Invalid Interpretation Code 136 - 145 mEq/L AH ADM SS Urea nitrogen [Mass/Vol] 25.0 mg/dL Invalid Interpretation Code 8.0 - 22.0 mg/dL AH ADM SS Urea nitrogen/Creatinine [Mass ratio] 26.3 ratio Invalid Interpretation Code 10.0 - 22.0 ratio AH ADM SS WBC (Bld) [#/Vol] 4.0 103/mcL Invalid Interpretation Code 4.5 - 10.8 10^3/mcL Workflow SS LABORATORYOrdered By: Lary Rodriguez on 04-03-2022 Calcium [Mass/Vol] 9.2 mg/dL Invalid Interpretation Code 8.4 - 10.2 mg/dL AO ADM SS Chloride [Moles/Vol] 104 mmol/L Invalid Interpretation Code 98 - 107 mmol/L AO ADM SS CO2 [Moles/Vol] 27 mmol/L Invalid Interpretation Code 23 - 31 mmol/L AO ADM SS Creatinine [Mass/Vol] 0.92 mg/dL Invalid Interpretation Code 0.70 - 1.30 mg/dL AO ADM SS Electrolyte Balance 10.0 mEq/L Invalid Interpretation Code 4.0 - 15.0 mEq/L AO ADM SS Glucose [Mass/Vol] 99 mg/dL Invalid Interpretation Code 80 - 115 mg/dL AO ADM SS Potassium [Moles/Vol] 3.9 mmol/L Invalid Interpretation Code 3.5 - 5.1 mmol/L AO ADM SS Sodium [Moles/Vol] 141 mmol/L Invalid Interpretation Code 136 - 145 mmol/L AO ADM SS TSH Qn 1.37 m[IU]/L Invalid Interpretation Code 0.36 - 3.74 mcIU/mL AO ADM SS Urea nitrogen [Mass/Vol] 26 mg/dL Invalid Interpretation Code 7 - 18 mg/dL AO ADM SS Urea nitrogen/Creatinine [Mass ratio] 28 ratio Invalid Interpretation Code 7 - 27 ratio AO ADM SS Uric Acid Lvl 4.7 mg/dL Invalid Interpretation Code 3.5 - 7.2 mg/dL AO ADM SS LABORATORYOrdered By: SYSTEM SYSTEM on 04-03-2022 GFR 101 ml/min/1.73sqm Invalid Interpretation Code AO Chemistry S GFR Non- 83 ml/min/1.73sqm Invalid Interpretation Code AO Chemistry S LABORATORYOrdered By: Lary Rodriguez on 02-09-2022 Calcium [Mass/Vol] 9.0 mg/dL Invalid Interpretation Code 8.4 - 10.2 mg/dL AO ADM SS Chloride [Moles/Vol] 105 mmol/L Invalid Interpretation Code 98 - 107 mmol/L AO ADM SS CO2 [Moles/Vol] 30 mmol/L Invalid Interpretation Code 23 - 31 mmol/L AO ADM SS Creatinine [Mass/Vol] 1.02 mg/dL Invalid Interpretation Code 0.70 - 1.30 mg/dL AO ADM SS Electrolyte Balance 7.0 mEq/L Invalid Interpretation Code 4.0 - 15.0 mEq/L AO ADM SS Glucose [Mass/Vol] 105 mg/dL Invalid Interpretation Code 80 - 115 mg/dL AO ADM SS Potassium [Moles/Vol] 4.1 mmol/L Invalid Interpretation Code 3.5 - 5.1 mmol/L AO ADM SS Sodium [Moles/Vol] 142 mmol/L Invalid Interpretation Code 136 - 145 mmol/L AO ADM SS Urea nitrogen [Mass/Vol] 25 mg/dL Invalid Interpretation Code 7 - 18 mg/dL AO ADM SS Urea nitrogen/Creatinine [Mass ratio] 25 ratio Invalid Interpretation Code 7 - 27 ratio AO ADM SS LABORATORYOrdered By: SYSTEM SYSTEM on 02-09-2022 GFR 90 ml/min/1.73sqm Invalid Interpretation Code AO Chemistry S GFR Non- 74 ml/min/1.73sqm Invalid Interpretation Code AO Chemistry S LABORATORYOrdered By: Trip Huang on 01-09-2022 Prostate specific Ag [Mass/Vol] ng/mL Invalid Interpretation Code 0.00 - 4.00 ng/mL AO ADM SS Absolute lymphocyte counton 12-28-2021 Lymphocytes Auto (Unsp spec) [#/Vol] 0.52 10*3/uL 0.83-4.51 [facility] Work Phone: Basophil percentageon 2021 Basophils/100 WBC (Bld) 0.3 % 0-1 [facility] Work Phone: Bilirubin [Mass/Vol] 0.50 mg/dL 0.20-1.00 [facility] Work Phone: Comment on above: For patients on eltr ombopag therapy, use of Dimension [place] TBIL is not recommended. Chloride [Moles/Vol] 108 mmol/L 98-107 [facility] Work Phone: Eosinophils/100 WBC (Bld) 1.0 % 0-5 [facility] Work Phone: Glucose [Mass/Vol] 103 mg/dL 74-106 [facility] Work Phone: Comment on above: Fasting Glucose resu lt from 100 to 125 mg/dL suggests IMPAIRED HOMEOSTASIS per A.D.A. criteria. Neutrophils (Bld) [#/Vol] 2.1 10*3/uL 2.0-7.7 [facility] Work Phone: Neutrophils/100 WBC (Bld) 71.6 % 47-70 [facility] Work Phone: [phone] Potassium [Moles/Vol] 3.9 mmol/L 3.5-5.1 [facility] Work Phone: Protein [Mass/Vol] 7.1 g/dL 6.4-8.2 [facility] Work Phone: Sodium [Moles/Vol] 141 mmol/L 136-145 [facility] Work Phone: WBC (Bld) [#/Vol] 3.0 10*3/uL 4.4-11.0 [facility] Work Phone: Blood erythrocytes count (nu mber/volume)on 12-28-2021 RBC (Bld) [#/Vol] 5.28 10*6/uL 4.6-6.2 [facility] Work Phone: Blood hemoglobin measurement (mass/volume)on 12-28-2021 Hemoglobin (Bld) [Mass/Vol] 15.4 g/dL 13.0-16.5 [facility] Work Phone: Blood lymphocytes/100 leukoc yteson 12-28-2021 Lymphocytes/100 WBC (Bld) 17.6 % 19-41 [facility] Work Phone: Blood manual differential co mment interpretation (narrative result)on 12-28-2021 Manual differential comment Jimbo (Bld) [Interp] SCANNED [facility] Work Phone: Blood monocytes/100 leukocyt eson 12-28-2021 Monocytes/100 WBC (Bld) 9.2 % 0-10 [facility] Work Phone: Blood platelet mean volumeon 12-28-2021 Platelet mean volume (Bld) [Entitic vol] 11.1 fL 6.2-12.0 [facility] Work Phone: C-REACTIVE PROTEIN (CRP)on 0 12-28-2021 CRP [Mass/Vol] mg/L <0.9 mg/dL [facility] Determination of erythrocyte mean corpuscular volume (MCV)on 12-28-2021 MCV (RBC) [Entitic vol] 87.1 fL 80-94 [facility] Work Phone: Hematocrit Auto (Bld) [Volum e fraction]on 12-28-2021 Hematocrit (Bld) [Volume fraction] 46.0 % 40-54 [facility] Work Phone: Laboratory - Chemistry and C hemistry - challengeon 12-28-2021 ALP [Catalytic activity/Vol] 68 U/L 45-117 [facility] Work Phone: ALT [Catalytic activity/Vol] 42 U/L 16-61 [facility] Work Phone: CO2 [Moles/Vol] 26.0 mmol/L 21.0-32.0 [facility] Work Phone: Globulin (S) [Mass/Vol] 3.2 g/dL 2.2-4.2 [facility] Work Phone: Urea nitrogen/Creatinine [Mass ratio] 20.7 mg/mg 10-20 [facility] Work Phone: Laboratory - Coagulationon 0 12-28-2021 aPTT Coag (Bld) [Time] 30.0 s 24.1-36.2 [facility] Work Phone: Laboratory - Hematology and Cell countson 12-28-2021 Erythrocyte distribution width (RBC) [Entitic vol] 44.2 fL 35.1-43.9 [facility] Work Phone: Erythrocyte distribution width (RBC) [Ratio] 13.7 % 11.6-14.6 [facility] Work Phone: Immature granulocytes/100 WBC (Bld) 0.300 % 0.0-0.9 [facility] Work Phone: Comment on above: IG% - Immature Granu locytes (promyelocytes, myelocytes and metamyelocytes) > 1% indicates that a LEFT SHIFT is Present. MCH (RBC) [Entitic mass] 29.2 pg 27.0-32.0 [facility] Work Phone: Nucleated RBC/100 WBC (Bld) [Ratio] 0 % 0-5 [facility] [facility] Work Phone: MCHC Auto (RBC) [Mass/Vol]on 12-28-2021 MCHC (RBC) [Mass/Vol] 33.5 g/dL 32-36 [facility] Work Phone: No Panel Informationon 12-28 Estimated GFR (MDRD) Amer 66 mL/min >60 [facility] Work Phone: Comment on above: GFR Calc Estimated GFR (MDRD) Non-Af Amer 55 mL/min >60 [facility] Work Phone: Comment on above: Non- GFR Calc Platelets bldon 12-28-2021 Platelets (Bld) [#/Vol] 72 10*3/uL 150-450 [facility] Work Phone: Review by pathologiston 12-03 Pathologist review Jimbo (Unsp spec) [Interp] Reviewed [facility] Work Phone: Comment on above: Previous reported re sult: Adwoa cardona Edited by: CAROLYNE on 12/29/21:1322Leukopenia and Thrombocytopenia.Vipin Caruso M.D. 12/29/21 AMENDED REPORT 12/29/21 1322 PATH REV previously reported as: Adwoa cardona Serum or plasma albumin martha urement (mass/volume)on 12-28-2021 Albumin [Mass/Vol] 3.9 g/dL 3.2-5.0 [facility] Work Phone: Serum or plasma albumin/glob ulin mass ratioon 12-28-2021 Albumin/Globulin [Mass ratio] 1.2 {ratio} 0.9-2.4 [facility] Work Phone: Serum or plasma uatnh-5-bikz protein tumor marker measurement (units/volume)on 12-28-2021 AFP.tumor marker Qn 4.8 ng/mL 0.0-8.4 [facility] Work Phone: Comment on above: [facility] [employer] El ectrochemiluminescence Immunoassay(ECLIA)Values obtained with different assay methods or kits cannotbe used interchangeably. Results cannot be interpreted asabsolute evidence of the presence or absence of malignantdisease.This test is not interpretable in females.Performed at: [facility] [address] [id number] Director: Edilberto Cooley PhD, Phone: [phone] Serum or plasma calcium martha urement (mass/volume)on 12-28-2021 Calcium [Mass/Vol] 9.1 mg/dL 8.5-10.1 [facility] Work Phone: Serum or plasma creatinine m easurement (mass/volume)on 12-28-2021 Creatinine [Mass/Vol] 1.40 mg/dL 0.70-1.30 [facility] Work Phone: Comment on above: The validity of the calculated GFR & GFRAA in patients over 70 years has not been determined. Clinical correlation is essential. Serum or plasma urea nitroge n measurement (mass/volume)on 12-28-2021 Urea nitrogen [Mass/Vol] 29 mg/dL 7-18 [facility] Work Phone: Thin prep Papanicolaou smear with manual screeningon 12-28-2021 Thin prep Papanicolaou smear with manual screening 28 U/L 15-37 [facility] Work Phone: Thin prep Papanicolaou smear with manual screening 7 5-15 [facility] Work Phone: XR KNEE POST OP 3V AP/LAT/ME RCHANT LEFTon 12-28-2021 [facility] XR Knee - left 4 Viewson IMPRESSION: 1. Left knee arthroplasty in anatomic position with no acute fracture or progressive osteolysis 2. Increased knee joint effusion Tax Consultant: KELECHI Transcribe Date/Time: Oct 25 2021 2:06P Dictated by : MANUEL STEWART MD This examination was interpreted and the report reviewed and electronically signed by: MANUEL STEWART MD on Oct 25 2021 2:08PM EST ZZZ_DO_NOT_ USE_DIVISIO N OF RADIOLOGY * * *Final Report* * * DATE OF EXAM: Oct 25 2021 9:58AM STX 5202 - XR KNEE 4V AP/PA BOTH+LAT/HARRIS LT / PROCEDURE REASON: Left knee pain, unspecified chronicity * * * * Physician Interpretation * * * * Left knee radiographs HISTORY: Left knee pain TECHNIQUE: 4 views of the left knee COMPARISON: 05/24/2020 FINDINGS: Left knee prosthesis is in anatomic position. No acute fracture or progressive osteolysis. The patella is in normal position. There is a joint effusion. ZZZ_DO_NOT_ USE_DIVISIO N OF RADIOLOGY Provider, Nabor Vo - 10/25/2021 * * *Final Report* * * DATE OF EXAM: Oct 25 2021 9:58AM STX 5202 - XR KNEE 4V AP/PA BOTH+LAT/HARRIS LT / PROCEDURE REASON: Left knee pain, unspecified chronicity * * * * Physician Interpretation * * * * Left knee radiographs HISTORY: Left knee pain TECHNIQUE: 4 views of the left knee COMPARISON: 05/24/2020 FINDINGS: Left knee prosthesis is in anatomic position. No acute fracture or progressive osteolysis. The patella is in normal position. There is a joint effusion. IMPRESSION IMPRESSION: 1. Left knee arthroplasty in anatomic position with no acute fracture or progressive osteolysis 2. Increased knee joint effusion Tax Consultant: [facility] Transcribe Date/Time: Oct 25 2021 2:06P Dictated by : MANUEL STEWART MD This examination was interpreted and the report reviewed and electronically signed by: MANUEL STEWART MD on Oct 25 2021 2:08PM EST [facility] Radiology Study observation (narrative) [facility] XR Knee - left 4 ViewsOrdere d By: Ccf Provider on 10-25-2021 [facility] LABORATORYOrdered By: Dragan Ye on 09-30-2021 Albumin BCP dye [Mass/Vol] 4.1 G/dL Invalid Interpretation Code 3.4 - 4.8 G/dL AO ADM SS Albumin/Globulin [Mass ratio] 1.4 {ratio} Invalid Interpretation Code 1.1 - 2.5 ratio AO ADM SS ALP [Catalytic activity/Vol] 67 U/L Invalid Interpretation Code 40 - 135 U/L AO ADM SS ALT With P-5'-P [Catalytic activity/Vol] 42 U/L Invalid Interpretation Code 16 - 63 U/L AO ADM SS AST With P-5'-P [Catalytic activity/Vol] 32 U/L Invalid Interpretation Code 10 - 40 U/L AO ADM SS Bilirubin [Mass/Vol] 0.9 mg/dL Invalid Interpretation Code 0.2 - 1.0 mg/dL AO ADM SS Calcium [Mass/Vol] 9.1 mg/dL Invalid Interpretation Code 8.4 - 10.2 mg/dL AO ADM SS Chloride [Moles/Vol] 104 mmol/L Invalid Interpretation Code 98 - 107 mmol/L AO ADM SS CO2 [Moles/Vol] 28 mmol/L Invalid Interpretation Code 23 - 31 mmol/L AO ADM SS Creatinine [Mass/Vol] 1.02 mg/dL Invalid Interpretation Code 0.70 - 1.30 mg/dL AO ADM SS Electrolyte Balance 8.0 mEq/L Invalid Interpretation Code 4.0 - 15.0 mEq/L AO ADM SS Globulin 3.0 G/dL Invalid Interpretation Code AO ADM SS Glucose [Mass/Vol] 97 mg/dL Invalid Interpretation Code 80 - 115 mg/dL AO ADM SS Potassium [Moles/Vol] 4.1 mmol/L Invalid Interpretation Code 3.5 - 5.1 mmol/L AO ADM SS Protein [Mass/Vol] 7.1 G/dL Invalid Interpretation Code 6.4 - 8.2 G/dL AO ADM SS Sodium [Moles/Vol] 140 mmol/L Invalid Interpretation Code 136 - 145 mmol/L AO ADM SS TSH Qn 1.20 m[IU]/L Invalid Interpretation Code 0.36 - 3.74 mcIU/mL AO ADM SS Urea nitrogen [Mass/Vol] 23 mg/dL Invalid Interpretation Code 7 - 18 mg/dL AO ADM SS Urea nitrogen/Creatinine [Mass ratio] 23 ratio Invalid Interpretation Code 7 - 27 ratio AO ADM SS LABORATORYOrdered By: Trip Huang on 09-30-2021 Basophil, Absolute 0.00 103/mcL Invalid Interpretation Code 0.00 - 0.19 10^3/mcL AO Auto Heme SS Basophils/100 WBC (Bld) 0.6 % Invalid Interpretation Code 0.0 - 2.5 % AO Auto Heme SS Eosinophil, Absolute 0.00 103/mcL Invalid Interpretation Code 0.00 - 0.40 10^3/mcL AO Auto Heme SS Eosinophils/100 WBC (Bld) 0.8 % Invalid Interpretation Code 0.0 - 7.0 % AO Auto Heme SS Erythrocyte distribution width (RBC) [Ratio] 14.5 % Invalid Interpretation Code 11.5 - 14.5 % AO Auto Heme SS Hematocrit (Bld) [Volume fraction] 45.5 % Invalid Interpretation Code 42.0 - 52.0 % AO Auto Heme SS Hemoglobin (Bld) [Mass/Vol] 15.4 G/dL Invalid Interpretation Code 14.0 - 18.0 G/dL AO Auto Heme SS Lymphocyte, Absolute 0.70 103/mcL Invalid Interpretation Code 0.77 - 3.85 10^3/mcL AO Auto Heme SS Lymphocytes/100 WBC (Bld) 23.6 % Invalid Interpretation Code 10.0 - 50.0 % AO Auto Heme SS MCH (RBC) [Entitic mass] 28.9 pg Invalid Interpretation Code 27.0 - 31.2 pg AO Auto Heme SS MCHC (RBC) [Mass/Vol] 34.0 G/dL Invalid Interpretation Code 31.8 - 35.4 G/dL AO Auto Heme SS MCV (RBC) [Entitic vol] 85.1 fL Invalid Interpretation Code 80.0 - 94.0 fL AO Auto Heme SS Monocyte, Absolute 0.30 103/mcL Invalid Interpretation Code 0.15 - 1.00 10^3/mcL AO Auto Heme SS Monocytes/100 WBC (Bld) 11.1 % Invalid Interpretation Code 1.7 - 13.0 % AO Auto Heme SS Neutrophil, Absolute 1.80 103/mcL Invalid Interpretation Code 2.85 - 6.16 10^3/mcL AO Auto Heme SS Neutrophils/100 WBC (Bld) 63.9 % Invalid Interpretation Code 37.0 - 80.0 % AO Auto Heme SS Platelet Estimate Decreased (09/30/21 9:28 AM) Invalid Interpretation Code AO Auto Heme SS Platelet mean volume (Bld) [Entitic vol] 8.9 fL Invalid Interpretation Code 7.4 - 10.4 fL AO Auto Heme SS Platelets (Bld) [#/Vol] 88 103/mcL Invalid Interpretation Code 130 - 400 10^3/mcL AO Auto Heme SS RBC (Bld) [#/Vol] 5.34 106/mcL Invalid Interpretation Code 4.04 - 6.13 10^6/mcL AO Auto Heme SS WBC (Bld) [#/Vol] 2.80 103/mcL Invalid Interpretation Code 4.60 - 10.80 10^3/mcL AO Auto Heme SS LABORATORYOrdered By: SYSTEM SYSTEM on 09-30-2021 GFR 90 ml/min/1.73sqm Invalid Interpretation Code AO Chemistry S GFR Non- 74 ml/min/1.73sqm Invalid Interpretation Code AO Chemistry S LABORATORYOrdered By: Teri Cannon on 09-30-2021 Hep C Ab Non-Reactive (09/30/21 9:28 AM) Invalid Interpretation Code Non-Reactive AH ADM SS Hep C Ab Int Nonreactive: Samples with a value < 0.80 are considered nonreactive (negative) for antibodies to HCV.A negative test result does not exclude the possibility of exposure to or infection with HCV. HCV antibodies may be undetectable in some stages of the infection and in some clinical conditions. Invalid Interpretation Code AH Chemistry S LABORATORYOrdered By: Ghada Lima on 09-12-2021 Prostate specific Ag [Mass/Vol] ng/mL Invalid Interpretation Code 0.00 - 4.00 ng/mL AO ADM SS LABORATORYOrdered By: [employer] SYSTEM on 06-20-2021 Albumin BCP dye [Mass/Vol] 4.2 G/dL Invalid Interpretation Code 3.2 - 4.8 G/dL AH ADM SS Albumin/Globulin [Mass ratio] 1.7 {ratio} Invalid Interpretation Code 0.9 - 1.6 ratio AH ADM SS ALP [Catalytic activity/Vol] 74 U/L Invalid Interpretation Code 38 - 126 U/L AH ADM SS ALT No additional P-5'-P [Catalytic activity/Vol] 45 U/L Invalid Interpretation Code 12 - 55 U/L AH ADM SS AST [Catalytic activity/Vol] 36 U/L Invalid Interpretation Code 8 - 34 U/L AH ADM SS Basophils (Bld) [#/Vol] 0.00 103/mcL Invalid Interpretation Code 0.00 - 0.27 10^3/mcL AH Remisol SS Basophils/100 WBC (Bld) 0.5 % Invalid Interpretation Code 0.0 - 2.5 % AH Remisol SS Bilirubin [Mass/Vol] 0.70 mg/dL Invalid Interpretation Code 0.20 - 1.20 mg/dL AH ADM SS Calcium [Mass/Vol] 9.9 mg/dL Invalid Interpretation Code 8.7 - 10.4 mg/dL AH ADM SS Chloride [Moles/Vol] 110 mmol/L Invalid Interpretation Code 98 - 110 mEq/L AH ADM SS CO2 [Moles/Vol] 30 mmol/L Invalid Interpretation Code 22 - 32 mEq/L AH ADM SS Creatinine [Mass/Vol] 1.16 mg/dL Invalid Interpretation Code 0.60 - 1.40 mg/dL AH ADM SS Electrolyte Balance 6.0 mEq/L Invalid Interpretation Code 4.0 - 15.0 mEq/L AH ADM SS Eosinophils (Bld) [#/Vol] 0.00 103/mcL Invalid Interpretation Code 0.00 - 0.65 10^3/mcL AH Remisol SS Eosinophils/100 WBC (Bld) 1.0 % Invalid Interpretation Code 0.0 - 6.0 % AH Remisol SS Erythrocyte distribution width (RBC) [Ratio] 14.9 % Invalid Interpretation Code 11.5 - 15.5 % AH Remisol SS Ferritin [Mass/Vol] 107.8 ng/mL Invalid Interpretation Code 26.0 - 388.0 ng/mL AH ADM SS GFR/1.73 sq M.predicted among blacks MDRD (S/P/Bld) [Vol rate/Area] ml/min/1.73sqm Invalid Interpretation Code AH Chemistry S GFR/1.73 sq M.predicted among non-blacks MDRD (S/P/Bld) [Vol rate/Area] ml/min/1.73sqm Invalid Interpretation Code Chemistry S Globulin 2.5 G/dL Invalid Interpretation Code 1.5 - 3.8 G/dL AH ADM SS Glucose [Mass/Vol] 86 mg/dL Invalid Interpretation Code 82 - 115 mg/dL AH ADM SS Hematocrit (Bld) [Volume fraction] 43.4 % Invalid Interpretation Code 40.0 - 52.0 % AH Remisol SS Hemoglobin (Bld) [Mass/Vol] 14.7 G/dL Invalid Interpretation Code 13.0 - 17.5 G/dL AH Remisol SS Iron [Mass/Vol] 101 ug/dL Invalid Interpretation Code 65 - 175 mcg/dL AH ADM SS Iron binding capacity [Mass/Vol] 321 mcg/dL Invalid Interpretation Code 250 - 500 mcg/dL AH ADM SS Iron saturation [Mass fraction] 31 1 Invalid Interpretation Code AH ADM SS LDH Lactate to pyruvate reaction [Catalytic activity/Vol] 179 1 Invalid Interpretation Code 120 - 246 U/L AH ADM SS Lymphocytes (Bld) [#/Vol] 0.80 103/mcL Invalid Interpretation Code 0.90 - 4.32 10^3/mcL AH Remisol SS Lymphocytes/100 WBC (Bld) 19.2 % Invalid Interpretation Code 20.0 - 40.0 % AH Remisol SS MCH (RBC) [Entitic mass] 29.0 pg Invalid Interpretation Code 27.0 - 33.0 pg AH Remisol SS MCHC (RBC) [Mass/Vol] 33.9 G/dL Invalid Interpretation Code 32.0 - 36.0 G/dL AH Remisol SS MCV (RBC) [Entitic vol] 85.5 fL Invalid Interpretation Code 81.0 - 100.0 fL AH Remisol SS Monocytes (Bld) [#/Vol] 0.40 103/mcL Invalid Interpretation Code 0.09 - 1.40 10^3/mcL AH Remisol SS Monocytes/100 WBC (Bld) 9.1 % Invalid Interpretation Code 2.0 - 13.0 % AH Remisol SS Neutrophils (Bld) [#/Vol] 3.00 103/mcL Invalid Interpretation Code 2.25 - 8.10 10^3/mcL AH Remisol SS Neutrophils/100 WBC (Bld) 70.2 % Invalid Interpretation Code 50.0 - 75.0 % AH Remisol SS Platelet mean volume (Bld) [Entitic vol] 9.4 fL Invalid Interpretation Code 6.4 - 10.5 fL AH Remisol SS Platelets (Bld) [#/Vol] 90 103/mcL Invalid Interpretation Code 150 - 450 10^3/mcL AH Remisol SS Potassium [Moles/Vol] 4.4 mmol/L Invalid Interpretation Code 3.5 - 5.0 mEq/L AH ADM SS Protein [Mass/Vol] 6.7 G/dL Invalid Interpretation Code 5.7 - 8.2 G/dL AH ADM SS RBC (Bld) [#/Vol] 5.08 106/mcL Invalid Interpretation Code 4.50 - 6.00 10^6/mcL AH Remisol SS Sodium [Moles/Vol] 146 mmol/L Invalid Interpretation Code 136 - 145 mEq/L AH ADM SS Urea nitrogen [Mass/Vol] 31.0 mg/dL Invalid Interpretation Code 8.0 - 22.0 mg/dL AH ADM SS Urea nitrogen/Creatinine [Mass ratio] 26.7 ratio Invalid Interpretation Code 10.0 - 22.0 ratio AH ADM SS WBC (Bld) [#/Vol] 4.30 103/mcL Invalid Interpretation Code 4.50 - 10.80 10^3/mcL AH Remisol SS LABORATORYOrdered By: Ghada Lima on 06-06-2021 Prostate specific Ag [Mass/Vol] ng/mL Invalid Interpretation Code 0.00 - 4.00 ng/mL AO ADM SS LABORATORYOrdered By: Lary Rodriguez on 05-13-2021 ADMITTED TO INTENSIVE CARE UNIT FOR CONDITION OF INTEREST:FIND:PT:^PAT IENT:ORD: No (05/13/21 12:22 PM) Invalid Interpretation Code AO Auto Urine SS EMPLOYED IN A HEALTHCARE SETTING:FIND:PT:^BROCK ENT:ORD: No (05/13/21 12:22 PM) Invalid Interpretation Code AO Auto Urine SS FIRST TEST FOR CONDITION OF INTEREST:FIND:PT:^PAT IENT:ORD: Unknown (05/13/21 12:22 PM) Invalid Interpretation Code AO Auto Urine SS HAS SYMPTOMS RELATED TO CONDITION OF INTEREST:FIND:PT:^PAT IENT:ORD: Unknown (05/13/21 12:22 PM) Invalid Interpretation Code AO Auto Urine SS Illness or injury onset date and time [id number] Invalid Interpretation Code AO Auto Urine SS Patient was hospitalized because of this condition No (05/13/21 12:22 PM) Invalid Interpretation Code AO Auto Urine SS status Not (05/13/21 12:22 PM) Invalid Interpretation Code AO Auto Urine SS RESIDES IN A CONGREGATE CARE SETTING:FIND:PT:^BROCK ENT:ORD: Unknown (05/13/21 12:22 PM) Invalid Interpretation Code AO Auto Urine SS SARS-CoV-2 (COVID-19) RNA YUE+probe Ql (Resp) Negative (05/13/21 12:22 PM) Invalid Interpretation Code Negative AO Auto Urine SS SARS-CoV-2 (COVID-19) RNA YEU+probe Ql (Unsp spec) Negative results do not preclude SARS-CoV-2 infection and should not be used as the sole basis for patient management decisions. Negative results must be combined with clinical observations, patient history, and epidemiological information.There is a risk of false negative values resulting from improperly collected, transported, or handled specimens.There is a risk of false negative values due to the presence of sequence variants in the pathogen targets of the assay, procedural errors, amplification inhibitors in specimens, or inadequate numbers of organisms for amplification.CAROLINE SARS-CoV-2 Assay is a Real-Time reverse-transcriptase polymerase chain reaction (RT-PCR) based qualitative in vitro diagnostic test intended for the qualitative detection of nucleic acid from the SARS-CoV-2 in nasopharyngeal swab specimens collected from individuals suspected of COVID-19 by their healthcare provider. Testing is limited to laboratories certified under the Clinical Laboratory Improvement Amendments of 1988 (CLIA), 42 U.S.C. 263a, to perform moderate and high complexity tests. Invalid Interpretation Code AO Auto Urine SS LABORATORYOrdered By: SYSTEM SYSTEM on 04-21-2021 Basophils (Bld) [#/Vol] 0.00 103/mcL Invalid Interpretation Code 0.00 - 0.27 10^3/mcL AH Remisol SS Basophils/100 WBC (Bld) 0.6 % Invalid Interpretation Code 0.0 - 2.5 % AH Remisol SS Calcium [Mass/Vol] 9.6 mg/dL Invalid Interpretation Code 8.7 - 10.4 mg/dL AH ADM SS Chloride [Moles/Vol] 109 mmol/L Invalid Interpretation Code 98 - 110 mEq/L AH ADM SS CO2 [Moles/Vol] 32 mmol/L Invalid Interpretation Code 22 - 32 mEq/L AH ADM SS Creatinine [Mass/Vol] 1.04 mg/dL Invalid Interpretation Code 0.60 - 1.40 mg/dL AH ADM SS Electrolyte Balance 1.0 mEq/L Invalid Interpretation Code 4.0 - 15.0 mEq/L AH ADM SS Eosinophils (Bld) [#/Vol] 0.10 103/mcL Invalid Interpretation Code 0.00 - 0.65 10^3/mcL AH Remisol SS Eosinophils/100 WBC (Bld) 1.9 % Invalid Interpretation Code 0.0 - 6.0 % AH Remisol SS Erythrocyte distribution width (RBC) [Ratio] 14.7 % Invalid Interpretation Code 11.5 - 15.5 % AH Remisol SS GFR/1.73 sq M.predicted among blacks MDRD (S/P/Bld) [Vol rate/Area] ml/min/1.73sqm Invalid Interpretation Code AH Chemistry S GFR/1.73 sq M.predicted among non-blacks MDRD (S/P/Bld) [Vol rate/Area] ml/min/1.73sqm Invalid Interpretation Code AH Chemistry S Glucose [Mass/Vol] 105 mg/dL Invalid Interpretation Code 82 - 115 mg/dL AH ADM SS Hematocrit (Bld) [Volume fraction] 43.2 % Invalid Interpretation Code 40.0 - 52.0 % AH Remisol SS Hemoglobin (Bld) [Mass/Vol] 14.6 G/dL Invalid Interpretation Code 13.0 - 17.5 G/dL AH Remisol SS Lymphocytes (Bld) [#/Vol] 0.60 103/mcL Invalid Interpretation Code 0.90 - 4.32 10^3/mcL AH Remisol SS Lymphocytes/100 WBC (Bld) 18.6 % Invalid Interpretation Code 20.0 - 40.0 % AH Remisol SS MCH (RBC) [Entitic mass] 29.0 pg Invalid Interpretation Code 27.0 - 33.0 pg AH Remisol SS MCHC (RBC) [Mass/Vol] 33.8 G/dL Invalid Interpretation Code 32.0 - 36.0 G/dL AH Remisol SS MCV (RBC) [Entitic vol] 85.7 fL Invalid Interpretation Code 81.0 - 100.0 fL AH Remisol SS Monocytes (Bld) [#/Vol] 0.40 103/mcL Invalid Interpretation Code 0.09 - 1.40 10^3/mcL AH Remisol SS Monocytes/100 WBC (Bld) 11.9 % Invalid Interpretation Code 2.0 - 13.0 % AH Remisol SS Neutrophils (Bld) [#/Vol] 2.30 103/mcL Invalid Interpretation Code 2.25 - 8.10 10^3/mcL AH Remisol SS Neutrophils/100 WBC (Bld) 67.0 % Invalid Interpretation Code 50.0 - 75.0 % AH Remisol SS Platelet mean volume (Bld) [Entitic vol] 9.0 fL Invalid Interpretation Code 6.4 - 10.5 fL AH Remisol SS Platelets (Bld) [#/Vol] 82 103/mcL Invalid Interpretation Code 150 - 450 10^3/mcL AH Remisol SS Potassium [Moles/Vol] 4.3 mmol/L Invalid Interpretation Code 3.5 - 5.0 mEq/L AH ADM SS RBC (Bld) [#/Vol] 5.04 106/mcL Invalid Interpretation Code 4.50 - 6.00 10^6/mcL AH Remisol SS Sodium [Moles/Vol] 142 mmol/L Invalid Interpretation Code 136 - 145 mEq/L AH ADM SS Urea nitrogen [Mass/Vol] 28.0 mg/dL Invalid Interpretation Code 8.0 - 22.0 mg/dL AH ADM SS Urea nitrogen/Creatinine [Mass ratio] 26.9 ratio Invalid Interpretation Code 10.0 - 22.0 ratio AH ADM SS WBC (Bld) [#/Vol] 3.50 103/mcL Invalid Interpretation Code 4.50 - 10.80 10^3/mcL [place] SS HISTORY PHYSICALon 9 HISTORY PHYSICAL HNO ID: [id number] Author: Ria Damon (Pac) SOHAM Franklin Service: (none) Author Type: Physician Shoe Treer Type: HANDP Filed: 07/09/2018 11:51 AM Note Text: PROCEDURAL SEDATION HISTORY AND PHYSICAL EXAM SERVICE DATE: 07/09/2018 SERVICE TIME: 11:50 AM Subjective HPI: This is a 57 year old male who presents with cirrhosis of liver. PAST ANESTHESIA HISTORY: No history of adverse event PAST MEDICAL HISTORY Diagnosis Date - Cirrhosis, alcoholic (HCC) - GERD (gastroesophageal reflux disease) - HTN (hypertension) PAST SURGICAL HISTORY Procedure Laterality Date - COLONOSCOPY - EGD - KNEE SCOPE,DIAGNOSTIC Arthroscopy, knee, left - LAPAROSCOPIC CHOLEYCYSTECTOMY Cholecystectomy, lap - REMOVE TONSILS/ADENOIDS,<12 Y/O - REPAIR ING HERNIA,5+Y/O,REDUCIBL Hernia repair, inguinal, right - REPAIR ING HERNIA,5+Y/O,REDUCIBL Hernia repair, inguinal, left Prior to Admission medications as of 07/09/18 1142 Medication Sig Last Dose Taking coenzyme Q10 (COQ-10) 100 mg cap capsule 07/08/2018 at 1300 Yes topiramate (TOPAMAX) 100 mg tablet Take 1 tablet by mouth daily at bedtime. 07/08/2018 at 2300 Yes melatonin 10 mg cap Take by mouth once daily. 07/08/2018 at 2300 Yes docosahexanoic acid/epa (FISH OIL ORAL) Take by mouth. 07/08/2018 at 1300 Yes verapamil ER 180 mg 24 hr capsule 07/08/2018 at 0800 Yes MILK THISTLE ORAL Take 250 mg by mouth once daily. 07/08/2018 at 1300 Yes VITAMIN B COMPLEX ORAL Take 1 tablet by mouth once daily. 07/08/2018 at 0800 Yes HYDROCHLOROTHIAZIDE ORAL Take 12.5 mg by mouth once daily. 07/09/2018 at 0800 Yes multivitamin (DAILY MULTIVITAMIN) ORAL tablet Take one(1) tablet daily. 07/08/2018 at 0800 Yes doxazosin (CARDURA) 4 mg ORAL Tab Take one(1) tablet daily at bedtime 07/08/2018 at 2300 Yes omeprazole(PRILOSEC 20 MG CAP) Take one(1) capsule daily. 07/08/2018 at 0800 Yes rizatriptan (MAXALT) 10 mg tablet Take 1 po at ONSET OF HEADACHE. MAY REPEAT once AFTER 2 HOURS. DO NOT use on more than 2 days per given week. Unknown at Unknown time naproxen (NAPROSYN) 500 mg tablet Take 1 tablet by mouth twice daily as needed (for migraine). FOR PAIN. TAKE WITH FOOD. Unknown at Unknown time ALLERGIES Allergen Reactions - Oxycodone Cough - Tylenol [Acetaminop* Other: See Comments Cannot take secondary to liver disease - Prozac [Fluoxetine * Rash Objective PHYSICAL EXAM: The remainder of the physical exam is noncontributory. AIRWAY: Airway Visualization of Uvula: Yes Mouth opening greater than 2 fingerbreadths: Yes Neck Full Range of Motion: No (See Comment) (limited extension) LUNGS: Lungs clear to auscultation, Good diaphragmatic excursion CARDIAC: Normal S1 and S2; no rubs, murmurs, or gallops, Rhythm: regular rate and rhythm Assessment/Plan ASA Class: ASA Class:: Patient with severe systemic disease Principal Problem: Alcoholic cirrhosis of liver without ascites (HCC) POA: Unknown Assessment AND Plan: alcoholic cirrhosis of liver without ascites/EGD Provisional Diagnosis/Treatment Plan: alcoholic cirrhosis of liver without ascites/EGD SIGNATURE: Rai Franklin PA-C PATIENT NAME: Srinath Pepe DATE: July 09, 2018 TIME: 11:50 AM PAGER: [phone] [facility] PT EDon 07-09-2018 PT ED HNO ID: [id number] Author: Loulou Sosa RN Service: (none) Author Type: Registered Nurse Type: Patient Education Filed: 07/09/2018 12:55 PM Note Text: POST OP LEARNING RESPONSE INSTRUCTION PROVIDED TO: Patient and family member METHOD OF INSTRUCTION: Individual instruction Written instruction - handouts Verbal instruction PATIENT / FAMILY RESPONSE: Verbalizes understanding of: POST-PROCEDURE INSTRUCTIONS-Correct actions to take to reduce post procedure complications FOLLOW-UP PLAN: Patient instructed to call with any further issues SUPPLEMENTAL MATERIAL: None REFERRAL (RECOMMENDATION): None Loulou Sosa RN [facility] PT ED HNO ID: [id number] Author: Dionna Spears) JANETH Marti Service: Nursing Author Type: Registered Nurse Type: Patient Education Filed: 07/09/2018 11:44 AM Note Text: PRE OP LEARNING ASSESSMENT PROCEDURE/SURGERY: GI PROCEDURES: EGD READINESS TO LEARN COGNITIVE ABILITY: Alert and oriented MOTIVATION TO LEARN: Interested FAMILY SUPPORT: High - Very involved in pt care PATIENT LEARNS BEST BY: Verbal Instruction FACTORS AFFECTING LEARNING: None PHYSICAL LIMITATIONS AFFECTING LEARNING: None Electronically Signed By: Dionna Marti RN In Department: PROCEDURES Normal [facility] SURGICAL PATHOLOGYon 019 SURGICAL PATHOLOGY Specimen originated from [facility] Specimen #: [id number] Submitting Physician: DEBRA MCCRACKEN M.D. FINAL DIAGNOSIS 1. Stomach, antral polyps, biopsy (A) - Gastric antral-type mucosa with no pathologic diagnostic abnormality; see comment. 2. Stomach, random biopsies (B) - Gastric antral-type mucosa with focal intestinal metaplasia; negative for dysplasia; see comment. SS/srj 07/10/2018 COMMENT 1,2. No microorganisms morphologically compatible with H-pylori are identified on routine H&E-stained sections. Freddie Irving M.D. (Electronic Signature) SPECIMEN SUBMITTED A: ANTRUM, POLYPS B: RANDOM GASTRIC, BIOPSIES CLINICAL DATA ALCOHOLIC CIRRHOSIS OF LIVER WITHOUT ASCITES (HCC) GROSS DESCRIPTION A. Received in formalin are two pieces of mclain, soft tissue aggregating to 0.6 x 0.2 x 0.2 cm. Totally submitted in one cassette. B. Received in formalin are two pieces of mclain, soft tissue aggregating to 0.5 x 0.3 x 0.2 cm. Totally submitted in one cassette. Gross examination performed at [facility], [address] [place] [address] V 07/09/2018 4:37:14 PM Date of Report: 07/10/2018 Date of Procedure: 07/09/2018 Date of Receipt: 07/09/2018 Submitted by: DEBRA MCCRACKEN M.D. Location: AVEN Diagnostic interpretation performed at [place] [address]. Normal [facility] SURGICAL PATHOLOGY Specimen originated from [facility] Specimen #: [id number] Submitting Physician: DEBRA MCCRACKEN M.D. FINAL DIAGNOSIS 1. Stomach, antral polyps, biopsy (A) - Gastric antral-type mucosa with no pathologic diagnostic abnormality; see comment. 2. Stomach, random biopsies (B) - Gastric antral-type mucosa with focal intestinal metaplasia; negative for dysplasia; see comment. SS/srj 07/10/2018 COMMENT 1,2. No microorganisms morphologically compatible with H-pylori are identified on routine ZOE-stained sections. Freddie Irving M.D. (Electronic Signature) SPECIMEN SUBMITTED A: ANTRUM, POLYPS B: RANDOM GASTRIC, BIOPSIES CLINICAL DATA ALCOHOLIC CIRRHOSIS OF LIVER WITHOUT ASCITES (HCC) GROSS DESCRIPTION A. Received in formalin are two pieces of mclain, soft tissue aggregating to 0.6 x 0.2 x 0.2 cm. Totally submitted in one cassette. B. Received in formalin are two pieces of mclain, soft tissue aggregating to 0.5 x 0.3 x 0.2 cm. Totally submitted in one cassette. Gross examination performed at [facility], [address] [place] [address], [place], [place] [address] VY 07/09/2018 4:37:14 PM Date of Report: 07/10/2018 Date of Procedure: 07/09/2018 Date of Receipt: 07/09/2018 Submitted by: DEBRA MCCRACKEN M.D. Location: [facility] Diagnostic interpretation performed at [facility], [address] [place] [address]. Normal [facility] Reference Lab Comment on above: Performed By: #### S #### See report for performing lab information. HOSPon 03-28-2018 HOSP Patient:Alvaro Pepe MRN: Height:6' 4(1.93 m) Weight:247 lb 8 oz (112.265 kg) Outpatient Medications as of 07/09/18: coenzyme Q10 (COQ-10) 100 mg cap capsule topiramate (TOPAMAX) 100 mg tablet rizatriptan (MAXALT) 10 mg tablet naproxen (NAPROSYN) 500 mg tablet melatonin 10 mg cap docosahexanoic acid/epa (FISH OIL ORAL) verapamil ER 180 mg 24 hr capsule MILK THISTLE ORAL VITAMIN B COMPLEX ORAL HYDROCHLOROTHIAZIDE ORAL multivitamin (DAILY MULTIVITAMIN) ORAL tablet doxazosin (CARDURA) 4 mg ORAL Tab omeprazole(PRILOSEC 20 MG CAP) Admission/Clinic Administered Medications as of 07/09/18: NaCl 0.9% iv infusion Problem List: Pancytopenia [284.1] Splenomegaly [R16.1] Cirrhosis (HCC) [K74.60] Esophageal varices (HCC) [I85.00] Primary osteoarthritis of left knee [M17.12] HTN (hypertension) [I10] GERD (gastroesophageal reflux disease) [K21.9] Thrombocytopenia (HCC) [D69.6] Pain in left knee [M25.562] Weakness [R53.1] Difficulty in walking involving joint of pelvic region and thigh [R26.2] Alcoholic cirrhosis of liver without ascites (HCC) [K70.30] Intractable migraine without aura and without status migrainosus [G43.019] Allergies: Oxycodone Tylenol [Acetaminophen] Prozac [Fluoxetine Hcl] Date Verified: 07/09/18 Lab Values No results within the last 30 days for the following basenames: K,HCT Progress Notes (NEUR HEADACHE MAIN): Jacky Head MD 06/17/2018 5:06 PM Signed HEADACHE MEDICINE ESTABLISHED VISIT SERVICE DATE: March 19, 2018 PREVIOUS DATE: 06/27/2016 SERVICE TIME: 4:00 pm REASON FOR CONSULT: HEADACHES. HISTORY OF PRESENT ILLNESS: Patient returns for follow-up today. Patient had new onset headaches at age 53 with positive family history of intracranial aneurysm. CTA-Brain done at last visit was unremarkable. CT without contrast unremarkable. Past medical history complicated by hepatic cirrhosis. Currently on rizatriptan and naproxen as abortives. Interim History: [facility] improved on the topiramate. Reports that he gets 4-6 days per month. None in the last week. Rescue medications are working better, more effective, more rapid response. Reports that he takes the rizatriptan when the headache is strongly present--works better for him than taking early. Feels that the current medication regimen is working to give some relief to him. Tolerating topiramate ok--occasional tingling in hands, but not dose-limiting at this point. Discussed options--will increase to 100 mg qhs at time of refill to simplify dosing (fewer pills). Currently taking topiramate 75 mg qhs. Discussed diagnosis: Headache nomenclature: Probable migraine without aura without status migrainosus. Still no reported light/sound sensitivity or N/V. Past Medication Trials: Verapamil, nadolol, topiramate. INITIAL VISIT INFORMATION: Srinath Pepe is a 55 year old male who presents with headaches that started approximately 2 years ago, when he started a new job. 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 Cannot link job to headaches in particular manner. Description of Headache: Starts occipitally as a left dull headache and worsens over 6-8 hours. Always on the left side of his head--side-locked. Becomes severe. He reports pain quality as throbbing. Needs to stop activities and lay down at times. Duration: 24 hours Frequency of Headache: He reports an average of 2 headache days per month (ranges from 1-4 per month). Associated Features: Denies photophonophobia, denies osmophobia, denies nausea, denies vomiting. Aura: Denied. Triggers: None identified Aggravating Factors: No identifiable factors per patient. Alleviating Factors: Excedrin Migraine Morning Awakenings: Once Positional Changes or Valsalva Related Pain: No relationship. Past Medication Trials: Excedrin Migriane PAST MEDICAL HISTORY: PAST MEDICAL HISTORY Diagnosis Date - Cirrhosis, alcoholic (HCC) - GERD (gastroesophageal reflux disease) - HTN (hypertension) CURRENT MEDICATIONS: coenzyme Q10 (COQ-10) 100 mg cap capsule melatonin 10 mg cap Take by mouth once daily. docosahexanoic acid/epa (FISH OIL ORAL) Take by mouth. topiramate (TOPAMAX) 25 mg tablet Take 1-3 tablets by mouth daily at bedtime. verapamil ER 180 mg 24 hr capsule MILK THISTLE ORAL Take 250 mg by mouth once daily. VITAMIN B COMPLEX ORAL Take 1 tablet by mouth once daily. HYDROCHLOROTHIAZIDE ORAL Take 12.5 mg by mouth once daily. naproxen (NAPROSYN) 500 mg tablet Take 1 tablet by mouth twice daily as needed (for migraine). FOR PAIN. TAKE WITH FOOD. rizatriptan (MAXALT) 10 mg tablet Take 1 po at ONSET OF HEADACHE. MAY REPEAT once AFTER 2 HOURS. DO NOT use on more than 2 days per given week. multivitamin (DAILY MULTIVITAMIN) ORAL tablet Take one(1) tablet daily. doxazosin (CARDURA) 4 mg ORAL Tab Take one(1) tablet daily at bedtime omeprazole(PRILOSEC 20 MG CAP) Take one(1) capsule daily. ALLERGIES: ALLERGIES Allergen Reactions - Oxycodone Cough - Tylenol [Acetaminop* Other: See Comments Cannot take secondary to liver disease - Prozac [Fluoxetine * Rash REVIEW OF SYSTEMS PAIN ASSESSMENT: CURRENTLY HAVING PAIN; see HPI GENERAL: No weight loss, malaise or fevers HEENT: No changes in hearing or vision, no nose bleeds or other nasal problems NECK: Negative for lumps, goiter, pain and significant neck swelling RESPIRATORY: Negative for cough, hemoptysis, wheezing, COPD, dyspnea or shortness of breath CARDIOVASCULAR: Negative for chest pain, leg swelling, hypertension, CHF or palpitations GI: No nausea, vomiting, or diarrhea MUSCULOSKELETAL: Negative for joint pain or swelling, back pain or muscle pain SKIN: Negative for lesions, rash, and itching HEMATOLOGY/LYMPHOLOGY: Positive for bleeding/clotting disorder: thrombocytopenia 2/2 cirrhosis ENDOCRINE: Negative for cold or heat intolerance, polyuria, polydipsia and goiter NEURO: Migraine headaches and tingling of hands (medication effect). PHYSICAL EXAMINATION: Vital signs: BP 130/75 Pulse 69 Ht 193 cm (6' 4) Wt 112.3 kg (247 lb 8 oz) BMI 30.13 kg/m? General appearance: Well appearing, alert, in no acute distress, well-hydrated, well nourished. Skin: Skin color, texture, turgor normal, no suspicious rashes or lesions Head: Normocephalic, no masses, lesions, tenderness or abnormalities Eyes: Anicteric sclera. Pupils are equally round and reactive to light. Extraocular movements are intact. Oropharynx: Lips, mucosa, and tongue normal, teeth and gums normal, oropharynx normal Neck: Supple, no adenopathy Lungs: CTAB. Heart: RRR without MRG Extremities: No deformities, edema, skin discoloration, clubbing or cyanosis. Good capillary refill. Musculoskeletal: No joint swelling, deformity, or tenderness Peripheral pulses: Capillary refill <2secs, strong peripheral pulses Neuro: Negative findings: R handed., speech normal, mental status intact, cranial nerves 2-12 intact, muscle tone normal, muscle strength normal, reflexes normal and symmetric DATA: Diagnostic tests reviewed for today's visit: Most recent labs and imaging results. ASSESSMENT AND PLAN: 57 year old male with intractable migraine without aura without status migrainosus ? Continue topiramate 100 mg po qhs for probable migraine ? Continue CoQ10 400 mg daily; ? Return in 6 months with virtual visit. Jacky Head MD June 17, 2018 5:03 PM [facility] Large Joint Arthro/Inj: L kn ee joint [facility] Vital Signs Date Time Vital Sign Value Performing Clinician Facility 10-16-2024 12:11-0400 Body height 193.[address] Kevon Mackey DO Work Phone: [facility] 10-16-2024 12:11-0400 Body mass index (BMI) [Ratio] 29.5 kg/m2 Dr. Kevon Mackey DO Work Phone: [facility] 10-16-2024 12:11-0400 Body weight 110.[address] Kevon Mackey DO Work Phone: [facility] 10-16-2024 12:11-0400 Diastolic blood pressure 88 mm[Hg] Dr. Kevon Mackey DO Work Phone: [facility] 10-16-2024 12:11-0400 Heart rate 51 /min Dr. Kevon Mackey DO Work Phone: [facility] 10-16-2024 12:11-0400 Respiratory rate 14 /min Dr. Kevon Mackey DO Work Phone: [facility] 10-16-2024 12:11-0400 Systolic blood pressure 159 mm[Hg] Dr. Kevon Mackey DO Work Phone: [facility] 09-10-2024 08:19-0400 Body height 193.[address] Kevon Mackey DO Work Phone: [facility] 09-10-2024 08:19-0400 Body mass index (BMI) [Ratio] 30.5 kg/m2 Dr. Kevon Mackey DO Work Phone: [facility] 09-10-2024 08:19-0400 Body weight 113.[address] Kevon Mackey DO Work Phone: [facility] 09-10-2024 08:19-0400 Diastolic blood pressure 75 mm[Hg] Dr. Kevon Mackey DO Work Phone: [facility] 09-10-2024 08:19-0400 Heart rate 64 /min Dr. Kevon Mackey DO Work Phone: [facility] 09-10-2024 08:19-0400 Respiratory rate 16 /min Dr. Kevon Mackey DO Work Phone: [facility] 09-10-2024 08:19-0400 SaO2% (BldA) [Mass fraction] 94 % Dr. Kevon Mackey DO Work Phone: [facility] 09-10-2024 08:19-0400 Systolic blood pressure 113 mm[Hg] Dr. Kevon Mackey DO Work Phone: [facility] 07-22-2024 13:00-0500 Body temperature 97 [degF] Dr. Kevon Mackey DO Work Phone: [facility] 07-22-2024 13:00-0500 Diastolic blood pressure 90 mm[Hg] Dr. Kevon Mackey DO Work Phone: [facility] 07-22-2024 13:00-0500 Heart rate 59 /min Dr. Kevon Mackey DO Work Phone: [facility] 07-22-2024 13:00-0500 Respiratory rate 16 /min Dr. Kevon Mackey DO Work Phone: [facility] 07-22-2024 13:00-0500 SaO2% (BldA) [Mass fraction] 97 % Dr. Kevon Mackey DO Work Phone: [facility] 07-22-2024 13:00-0500 Systolic blood pressure 134 mm[Hg] Dr. Kevon Mackey DO Work Phone: [facility] 07-22-2024 11:05-0500 Body height 193.[address] Kevon Mackey DO Work Phone: [facility] 07-22-2024 11:05-0500 Body mass index (BMI) [Ratio] 29.7 kg/m2 Dr. Kevon Mackey DO Work Phone: [facility] 07-22-2024 11:05-0500 Body weight 110.[address] Kevon Mackey DO Work Phone: [facility] 07-18-2024 13:34-0500 Body mass index (BMI) [Ratio] 29.9 kg/m2 Dr. Kevon Mackey DO Work Phone: [facility] 07-18-2024 13:34-0500 Body weight 111.[address] Kevon Mackey DO Work Phone: [facility] 07-18-2024 13:34-0500 Diastolic blood pressure 98 mm[Hg] Dr. Kevon Mackey DO Work Phone: [facility] 07-18-2024 13:34-0500 Heart rate 79 /min Dr. Kevon Mackey DO Work Phone: [facility] 07-18-2024 13:34-0500 Respiratory rate 16 /min Dr. Kevon Mackey DO Work Phone: [facility] 07-18-2024 13:34-0500 Systolic blood pressure 182 mm[Hg] Dr. Kevon Mackey DO Work Phone: [facility] 05-13-2024 08:36-0500 Body mass index (BMI) [Ratio] 29.7 kg/m2 Dr. Kevon Mackey DO Work Phone: [facility] 05-13-2024 08:36-0500 Body weight 110.[address] Kevon Mackey DO Work Phone: [facility] 05-13-2024 08:36-0500 Diastolic blood pressure 86 mm[Hg] Dr. Kevon Mackey DO Work Phone: [facility] 05-13-2024 08:36-0500 Heart rate 60 /min Dr. Kevon Mackey DO Work Phone: [facility] 05-13-2024 08:36-0500 SaO2% (BldA) [Mass fraction] 95 % Dr. Kevon Mackey DO Work Phone: [facility] 05-13-2024 08:36-0500 Systolic blood pressure 145 mm[Hg] Dr. Kevon Mackey DO Work Phone: [facility] 11-06-2022 08:43-0400 Body height 193 cm Pacc 1 Work Phone: [facility] 11-06-2022 08:43-0400 Body temperature 97.59 [degF] Pacc 1 Work Phone: [facility] 11-06-2022 08:43-0400 Body weight 107.05 kg Pacc 1 Work Phone: [facility] 11-06-2022 08:43-0400 Diastolic blood pressure 76 mm[Hg] Pacc 1 Work Phone: [facility] 11-06-2022 08:43-0400 Heart rate 64 /min Pacc 1 Work Phone: [facility] 11-06-2022 08:43-0400 Respiratory rate 14 /min Pacc 1 Work Phone: [facility] 11-06-2022 08:43-0400 SaO2% (BldA) [Mass fraction] 97 % Pacc 1 Work Phone: [facility] 11-06-2022 08:43-0400 Systolic blood pressure 124 mm[Hg] Pacc 1 Work Phone: [facility] 10-02-2022 13:12-0400 Body height 193 cm Ge Maguire MD, PhD Work Phone: [facility] 10-02-2022 13:12-0400 Body weight 111.13 kg Ge Maguire MD, PhD Work Phone: [facility] 02-24-2022 10:05-0400 Diastolic Blood Pressure NBP [address] EDILBERTO FRYE MD [facility] 02-24-2022 10:05-0400 Heart rate 58 /min DR EDILBERTO FRYE MD [facility] 02-24-2022 10:05-0400 Respiratory rate 14 /min DR EDILBERTO FRYE MD [facility] 02-24-2022 10:05-0400 Systolic Blood Pressure NBP [address] EDILBERTO FRYE MD [facility] 02-24-2022 09:55-0400 Diastolic Blood Pressure NBP [address] EDILBERTO FRYE MD [facility] 02-24-2022 09:55-0400 Heart rate 59 /min DR EDILBERTO FRYE MD [facility] 02-24-2022 09:55-0400 Respiratory rate 14 /min DR EDILBERTO FRYE MD [facility] 02-24-2022 09:55-0400 Systolic Blood Pressure NBP [address] EDILBERTO FRYE MD [facility] 02-24-2022 09:47-0400 Diastolic Blood Pressure NBP [address] EDILBERTO FRYE MD [facility] 02-24-2022 09:47-0400 Heart rate 66 /min DR EDILBERTO FRYE MD [facility] 02-24-2022 09:47-0400 Respiratory rate 12 /min DR EDILBERTO FRYE MD [facility] 02-24-2022 09:47-0400 Systolic Blood Pressure NBP [address] EDILBERTO FRYE MD [facility] 02-24-2022 08:15-0400 Body height [address] EDILBERTO FRYE MD [facility] 02-24-2022 08:15-0400 Body temperature 96.8 [degF] DR EDILBERTO FRYE MD [facility] 02-24-2022 08:15-0400 Body weight 109.[address] EDILBERTO FRYE MD [facility] 02-24-2022 08:15-0400 Body weight 29.29 kg/m2 DR EDILBERTO FRYE MD [facility] 02-24-2022 08:15-0400 diastolic 103 mm[Hg] DR EDILBERTO FRYE MD [facility] 02-24-2022 08:15-0400 Heart rate 59 /min DR EDILBERTO FRYE MD [facility] 02-24-2022 08:15-0400 systolic 183 mm[Hg] DR EDILBERTO FRYE MD [facility] 12-28-2021 14:39-0400 Body height 193 cm Ge Maguire MD Work Phone: [facility] 12-28-2021 14:39-0400 Body weight 111.13 kg Ge Maguire MD Work Phone: [facility] 11-07-2021 13:56-0400 Body temperature 97.7 [degF] CURT COSME MD [facility] 11-07-2021 13:56-0400 Diastolic blood pressure 92 mm[Hg] CURT COSME MD [facility] 11-07-2021 13:56-0400 Heart rate 92 /min CURT COSME MD [facility] 11-07-2021 13:56-0400 Respiratory rate 18 /min CURT COSME MD [facility] 11-07-2021 13:56-0400 Systolic blood pressure 127 mm[Hg] CURT COSME MD [facility] 11-01-2021 15:26-0400 Body height 193 cm Suzette Amberson PA-C Work Phone: [facility] 11-01-2021 15:26-0400 Body weight 111.13 kg Suzette Amberson PA-C Work Phone: [facility] 10-26-2021 07:41-0400 Body height 193.[address] Mark Smith Work Phone: [facility] Work Phone: 10-26-2021 07:41-0400 Body mass index (BMI) [Ratio] 30.9 kg/m2 Dr. Mark Smith Work Phone: [facility] Work Phone: 10-26-2021 07:41-0400 Body temperature 97.7 [degF] Dr. Mark Smith Work Phone: [facility] Work Phone: 10-26-2021 07:41-0400 Body weight 115.[address] Mark Smith Work Phone: [facility] Work Phone: 10-26-2021 07:41-0400 Diastolic blood pressure 91 mm[Hg] Dr. Mark Smith Work Phone: [facility] Work Phone: 10-26-2021 07:41-0400 Heart rate 74 /min Dr. Mark Smith Work Phone: [facility] Work Phone: 10-26-2021 07:41-0400 Respiratory rate 16 /min Dr. Mark Smith Work Phone: [facility] Work Phone: 10-26-2021 07:41-0400 SaO2% (BldA) [Mass fraction] 94 % Dr. Mark Smith Work Phone: [facility] Work Phone: 10-26-2021 07:41-0400 Systolic blood pressure 152 mm[Hg] Dr. Mark Smith Work Phone: [facility] Work Phone: 10-25-2021 10:01-0400 Body height 193 cm Ge Maguire MD Work Phone: [facility] 10-25-2021 10:01-0400 Body weight 111.13 kg Ge Maguire MD Work Phone: [facility] 10-24-2021 22:55-0400 Diastolic blood pressure 95 mm[Hg] DR PARKER FERGUSON MD [facility] 10-24-2021 22:55-0400 Heart rate 57 /min DR PARKER FERGUSON MD [facility] 10-24-2021 22:55-0400 Reason For Taking VItal Signs DR PARKER FERGUSON MD [facility] 10-24-2021 22:55-0400 Respiratory rate 16 /min DR PARKER FERGUSON MD [facility] 10-24-2021 22:55-0400 Systolic blood pressure 149 mm[Hg] DR PARKER FERGUSON MD [facility] 10-24-2021 20:45-0400 Body temperature 98.24 [degF] DR PARKER FERGUSON MD [facility] 10-24-2021 20:45-0400 Diastolic blood pressure 89 mm[Hg] DR PARKER FERGUSON MD [facility] 10-24-2021 20:45-0400 Heart rate 78 /min DR PARKER FERGUSON MD [facility] 10-24-2021 20:45-0400 Respiratory rate 18 /min DR PARKER FERGUSON MD [facility] 10-24-2021 20:45-0400 Systolic blood pressure 155 mm[Hg] DR PARKER FERGUSON MD [facility] 05-06-2021 14:41-0500 Body temperature 98.06 [degF] LISA SHANNON MD [facility] 05-06-2021 14:41-0500 Body weight 109.1 kg LISA SHANNON MD [facility] 05-06-2021 14:41-0500 Diastolic blood pressure 98 mm[Hg] LISA SHANNON MD [facility] 05-06-2021 14:41-0500 Heart rate 77 /min LISA SHANNON MD [facility] 05-06-2021 14:41-0500 Respiratory rate 20 /min LISA SHANNON MD [facility] 05-06-2021 14:41-0500 Systolic blood pressure 134 mm[Hg] LISA SHANNON MD [facility] 04-21-2021 08:20-0500 Diastolic blood pressure 85 mm[Hg] ANA VILLA MD [facility] 04-21-2021 08:20-0500 Systolic blood pressure 155 mm[Hg] ANA VILLA MD [facility] 04-21-2021 07:37-0500 Body height 191 cm ANA VILLA MD [facility] 04-21-2021 07:37-0500 Body temperature 98.06 [degF] ANA VILLA MD [facility] 04-21-2021 07:37-0500 Body weight 113.3 kg ANA VILLA MD [facility] 04-21-2021 07:37-0500 diastolic 92 mm[Hg] ANA VILLA MD [facility] 04-21-2021 07:37-0500 Heart rate 61 /min ANA VILLA MD [facility] 04-21-2021 07:37-0500 systolic 163 mm[Hg] ANA VILLA MD [facility] Encounters Encounter Date Encounter Type Care Provider Facility Start: 11-17-2024 [facility] Start: 10-16-2024 End: 10-16-[address] Jonathan Saleem MD -[facility] Work Phone: Start: 10-16-2024 End: 10-16-[address] Kevon Mackey DO Work Phone: [facility] Work Phone: Start: 10-03-2024 End: 10-03-[address] Kevon Mackey DO Work Phone: [facility] Work Phone: Start: 10-03-2024 End: 10-03-2024 Patient encounter procedure Adalgisa CARTAGENAC -Laboratory Work Phone: Start: 10-03-2024 End: 10-03-2024 ambulatory Kevon Mackey Facility:[facility] Start: 09-10-2024 End: 09-10-[address] Jasson Doan MD -[facility] Work Phone: Start: 09-10-2024 End: 09-10-2024 ambulatory [facility] Facility:[facility] Start: 09-01-2024 End: 09-01-[address] Kevon Mackey DO Work Phone: [facility] Work Phone: Start: 09-01-2024 End: 09-01-[address] Jasson Doan MD -Laboratory Work Phone: Start: 09-01-2024 End: 09-01-2024 ambulatory [facility] Facility:[facility] Start: 08-21-2024 Non-patient / Non-visit Dr. Jonathan Saleem MD -[facility] Start: 08-21-2024 End: 08-21-[address] Kevon Mackey DO Work Phone: [facility] Work Phone: Start: 08-21-2024 End: 08-21-[address] Jonathan Saleem MD -Cardiovascular Services Work Phone: Start: 08-21-2024 End: 08-21-2024 ambulatory [facility] Facility:[facility] Start: 08-12-[address] Jonathan Saleem MD -Cat Scan, [facility] Work Phone: Start: 08-12-2024 ambulatory [facility] Facility: [facility] Start: 08-11-2024 Registered Referred Self Referred -[facility] Services Work Phone: Start: 08-11-2024 ambulatory Self Referred Facility: [facility] Start: 07-22-2024 ambulatory Bismark Montoya Facility :[facility] Start: 07-22-2024 Non-patient / Non-visit Bismark Montoya DO -[facility] Start: 07-22-2024 End: 07-22-2024 Admission to same day surgery center Bismark Montoya DO -Endoscopy Work Phone: Start: 07-22-2024 End: 07-22-2024 ambulatory Bismark Lindsay Facility:[facility] Start: 07-18-2024 End: 07-18-[address] Jonathan Saleem MD -[facility] Work Phone: Start: 07-18-2024 End: 07-18-2024 ambulatory [facility] Facility:[facility] Start: 06-13-2024 End: 06-13-[address] Jasson Doan MD -Ultrasound, [facility] Work Phone: Start: 06-13-2024 End: 06-13-2024 ambulatory [facility] Facility:[facility] Start: 05-13-2024 End: 05-13-[address] Jasson Doan MD -[facility] Work Phone: Start: 05-13-2024 End: 05-13-2024 ambulatory Kevon Mackey Facility:[facility] Start: 03-31-2024 End: 04-28-2024 ambulatory KEVON MACKEY DO Facility:[facility] Start: 03-07-2024 End: 03-07-2024 ambulatory ANA VILLA MD Facility:[facility] Start: 03-07-2024 End: 03-07-2024 Patient encounter procedure ANA VILLA MD [place] [facility] Start: 03-04-2024 End: 03-04-2024 ambulatory KEVON MACKEY DO Facility:[facility] Start: 03-04-2024 End: 03-04-2024 Patient encounter procedure ANA VILLA MD [facility] Start: 02-29-2024 End: 02-29-2024 ambulatory Kevon Mackey Facility:[facility] Start: 02-29-2024 End: 02-29-2024 ambulatory Kevon Mackey Facility:[facility] Start: 02-05-2024 End: 02-05-2024 Patient encounter procedure Mateo Sawant APRN.RADIOPHONE OPERATOR Work Phone: Orthopaedics Comment on above: 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) Start: 02-05-2024 End: 02-05-2024 ambulatory KEVON MACKEY Facility:[facility] Start: 02-05-2024 End: 02-05-2024 Subsequent hospital visit by physician Radio General Katiana Ricci Work Phone: Radiology Comment on above: Left knee pain, unsp ecified chronicity [M25.562] Start: 01-02-2024 End: 01-02-2024 ambulatory KEVON MACKEY DO Facility:B Start: 01-02-2024 End: 01-02-2024 Patient encounter procedure KEVON MACKEY DO [facility] Start: 07-18-2023 End: 07-18-2023 ambulatory LENARD ASENCIO MD Facility:A Start: 07-18-2023 End: 07-18-2023 Patient encounter procedure LENARD ASENCIO MD [facility] Start: 06-15-2023 End: 06-15-2023 ambulatory LENARD ASENCIO MD Facility:A Start: 05-21-2023 End: 05-21-2023 Non-patient / Non-visit Dr. Kevon Mackey Work Phone: [facility] Work Phone: Start: 05-21-2023 End: 05-21-[address] Kevon Mackey Work Phone: [facility] Work Phone: Start: 05-21-2023 End: 05-21-[address] Kevon Mackey Work Phone: [facility]Neu[facility] Work Phone: Start: 03-07-2023 End: 03-07-2023 ambulatory ANA VILLA MD Facility:A Start: 03-07-2023 End: 03-07-2023 Patient encounter procedure ANA VILLA MD [facility] Start: 03-05-2023 End: 03-05-2023 ambulatory ANA VILLA MD Facility:B Start: 02-27-2023 End: 02-27-2023 ambulatory KEVON MACKEY Facility:[facility] Start: 02-27-2023 End: 02-27-2023 Subsequent hospital visit by physician avVenta Mob Work Phone: Radiology Comment on above: Chronic pain of left knee [M25.562, G89.29] Start: 02-01-2023 End: 02-01-2023 ambulatory LENARD ASENCIO MD Facility:B Start: 02-01-2023 End: 02-01-2023 Patient encounter procedure LENARD ASENCIO MD [facility] Start: 01-09-2023 End: 01-09-2023 Patient encounter procedure Mateo Sawant APRN.RADIOPHONE OPERATOR Work Phone: Orthopaedics Comment on above: 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) Start: 01-09-2023 End: 01-09-2023 Subsequent hospital visit by physician [facility] LYYN Mob Work Phone: Radiology Comment on above: Chronic pain of left knee [M25.562, G89.29] Start: 12-27-2022 ambulatory Rao Francois Work Phone: Orthopaedics Comment on above: Return To [facility] Start: 12-21-2022 End: 12-21-2022 Patient encounter procedure Mateo Sawatn APRN.RADIOPHONE OPERATOR Work Phone: Orthopaedics Comment on above: Status post revision of total replacement of left knee Start: 12-15-2022 Telephone encounter Rao groves MD Work Phone: Orthopaedics Comment on above: Patient Question Start: 12-11-2022 End: 03-05-2023 Physical therapy management MR. 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); Stiffness of left knee Start: 12-07-2022 End: 12-07-2022 Subsequent hospital visit by physician [facility] Work Phone: Radiology Comment on above: Chronic pain of left knee [M25.562, G89.29] Start: 12-01-2022 Refill Rao Francois Work Phone: [facility] [place] Comment on above: Refill Request Start: 11-30-2022 Telephone encounter Rao groves MD Work Phone: Orthopaedics Comment on above: Patient Question Start: 11-27-2022 Orders Only Mateo Sawant APRN.RADIOPHONE OPERATOR Work Phone: Orthopaedics Comment on above: Chronic pain of left knee (Primary Dx) Start: 11-20-2022 End: 11-20-[address] EDILBERTO FRYE MD [facility] Start: 11-09-2022 ambulatory Rao Francois Work Phone: [facility] Start: 11-09-2022 Letter encounter Rao Thomas MD Work Phone: Orthopaedics Comment on above: Letter Start: 11-06-2022 End: 11-06-2022 Admission to establishment [facility] Work Phone: [facility] Start: 11-06-2022 End: 11-06-2022 ambulatory [facility] [place] [facility] Work Phone: Pre Anesthesia Comment on above: Preoperative examina tion (Primary Dx); Migraine without aura and without status migrainosus, not intractable; Primary hypertension; Gastroesophageal reflux disease, unspecified whether esophagitis present; Splenomegaly; Alcoholic cirrhosis of liver without ascites (HCC); Leukopenia, unspecified type; Thrombocytopenia (HCC); History of prostate cancer Start: 11-06-2022 End: 11-06-[address] [facility] [place] [facility] Work Phone: Pre Anesthesia Start: 10-10-2022 End: 10-10-2022 Orders Only Rao Thomas MD Work Phone: Orthopaedics Comment on above: Joint laxity of left knee (Primary Dx); Effusion of left knee; Pain due to internal orthopedic prosthetic devices, implants and grafts, initial encounter ([facility]); S/P total knee arthroplasty, left Pain due to internal orthopedic prosthetic devices, implants and grafts, initial encounter ([facility]) (Primary Dx) PAC APPOINTMENT Start: 10-04-2022 Telephone encounter Rao groves MD Work Phone: [facility] Comment on above: Appointment Start: 10-02-2022 End: 10-02-2022 Subsequent hospital visit by physician [facility] Radiology Comment on above: Effusion of left kne e [M25.462] Start: 10-02-2022 End: 10-02-2022 Patient encounter procedure Ge Maguire MD, PhD Work Phone: Orthopaedics Comment on above: Effusion of left kne e (Primary Dx); Pain due to internal orthopedic prosthetic devices, implants and grafts, initial encounter ([facility]) Start: 08-03-2022 End: 08-03-2022 Patient encounter procedure MARIA A STRICKLAND SPLITTER MACHINE-RADIOPHONE OPERATOR [facility] Start: 06-09-2022 End: 06-09-2022 Patient encounter procedure LENARD ASENCIO MD [facility] Start: 04-14-2022 End: 04-14-2022 Patient encounter procedure DEXTER ROLDAN SPLITTER MACHINE-RADIOPHONE OPERATOR [facility] Start: 04-03-2022 End: 04-03-2022 Patient encounter procedure DEXTER ROLDAN SPLITTER MACHINE-RADIOPHONE OPERATOR [facility] Start: 02-24-2022 End: 02-24-[address] EDILBERTO FRYE MD [facility] Start: 02-09-2022 End: 02-09-2022 Patient encounter procedure JUNITO MILES DO [facility] Start: 01-16-2022 End: 01-16-2022 Patient encounter procedure ANA VILLA MD [facility] Start: 01-09-2022 End: 01-09-2022 Patient encounter procedure ANA VILLA MD [facility] Start: 01-05-2022 End: 01-05-2022 Subsequent hospital visit by physician [facility] 1 Work Phone: Molecular Imaging Comment on above: Pain due to internal orthopedic prosthetic devices, implants and grafts, initial encounter ([facility]) [T84.84XA] Start: 01-05-2022 End: 01-05-2022 Subsequent hospital visit by physician [facility] 1 Work Phone: Molecular Imaging Comment on above: Pain due to internal orthopedic prosthetic devices, implants and grafts, initial encounter (HCC) [T84.84XA] Start: 01-04-2022 End: 01-04-[address] Mark Smith Work Phone: [facility] Start: 12-30-2021 End: 12-30-2021 Patient encounter procedure Suzette Paul PA-C Work Phone: Orthopaedics Comment on above: Knee swelling (Prima ry Dx); Pain due to internal orthopedic prosthetic devices, implants and grafts, initial encounter ([facility]); S/P total knee arthroplasty, left Start: 12-28-2021 End: 12-28-[address] Mark Smith Work Phone: [facility] Start: 12-28-2021 End: 12-28-2021 Subsequent hospital visit by physician [facility] Radiology Comment on above: Knee swelling [M25.4 69] Start: 12-28-2021 End: 12-28-2021 Patient encounter procedure Ge Maguire MD Work Phone: Orthopaedics Comment on above: Knee swelling (Prima ry Dx); Pain due to internal orthopedic prosthetic devices, implants and grafts, initial encounter ([facility]) Start: 12-28-2021 E-mail encounter claudia damon caregiver Suzette Paul PA-C Work Phone: [facility] Start: 12-28-2021 Letter encounter Suzette hernandez PA-C Work Phone: Orthopaedics Comment on above: letter Start: 11-07-2021 End: 11-07-2021 Emergency department patient visit CURT COSME MD [facility] Start: 11-01-2021 End: 11-01-2021 Patient encounter procedure Suzette Paul PA-C Work Phone: Orthopaedics Comment on above: Acute pain of left k nee (Primary Dx); Knee swelling; S/P total knee arthroplasty, left Start: 10-26-2021 End: 10-26-[address] Mark Smith Work Phone: [facility] Start: 10-25-2021 End: 10-25-2021 Patient encounter procedure Ge Maguire MD Work Phone: Orthopaedics Comment on above: Acute pain of left k nee (Primary Dx); Knee swelling Start: 10-25-2021 End: 10-25-2021 Subsequent hospital visit by physician [facility] Work Phone: Radiology Comment on above: Left knee pain, unsp ecified chronicity [M25.562] Start: 10-24-2021 End: 10-24-2021 Emergency department patient visit DR PARKER FERGUSON MD [facility] Start: 10-07-2021 End: 10-07-2021 Patient encounter procedure [facility] Start: 09-30-2021 End: 09-30-2021 Patient encounter procedure MARK SMITH DO [facility] Start: 09-19-2021 End: 09-19-2021 Patient encounter procedure ANA VILLA MD [facility] Start: 09-12-2021 End: 09-12-2021 Patient encounter procedure ANA VILLA MD [facility] Start: 07-25-2021 End: 07-25-2021 Patient encounter procedure ANITA BARNHART MD [facility] Start: 06-20-2021 End: 06-20-2021 Patient encounter procedure LENARD ASENCIO MD [facility] Start: 06-13-2021 End: 06-13-2021 Patient encounter procedure ANA VILLA MD [facility] Start: 06-06-2021 End: 06-06-2021 Patient encounter procedure ANA VILLA MD [facility] Start: 05-13-2021 End: 05-13-2021 Patient encounter procedure MARK SMITH DO [facility] Start: 05-09-2021 End: 05-09-2021 Patient encounter procedure MARIA A Damon MARCO A SPLITTER MACHINE-RADIOPHONE OPERATOR [facility] Start: 05-06-2021 End: 05-06-2021 Emergency department patient visit LISA SHANNON MD [facility] Start: 04-21-2021 End: 04-21-2021 Admission to [facility] ANA VILLA MD [facility] Start: 04-18-2021 End: 04-18-2021 Patient encounter procedure ANA VILLA MD [facility] Start: 04-06-2021 End: 04-06-2021 Patient encounter procedure ANA IVLLA MD [facility] Start: 07-09-2018 End: 07-09-2018 Patient encounter procedure [facility] Procedures Date Procedure Procedure Detail Performing Clinician Start: 08-12-2024 CT angiography of coronary arteries Dr. Kevon Mackey DO Work Phone: Start: 07-18-2024 Evaluation of diagno stic study results Dr. Kevon Mackey DO Work Phone: Start: 06-13-2024 Ultrasound elastogra phy of liver Dr. Kevon Mackey DO Work Phone: Start: 02-05-2024 Radiologic examinati on knee 3 views Mateo Grater SPLITTER MACHINE.RADIOPHONE OPERATOR Work Phone: Start: 02-27-2023 Radiologic examinati on knee 3 views Mateo Grater SPLITTER MACHINE.RADIOPHONE OPERATOR Work Phone: Start: 01-09-2023 Radiologic examinati on knee 3 views Mateo Grater SPLITTER MACHINE.RADIOPHONE OPERATOR Work Phone: Start: 12-07-2022 Radiologic examinati on knee 1/2 views Mateodeniz Sawant APRN.RADIOPHONE OPERATOR Work Phone: Start: 11-06-2022 Ecg routine ecg w/le ast 12 lds i&r only [facility] Provider Start: 10-02-2022 Radiologic examinati on knee 3 views Ge Maguire MD Work Phone: Start: 06-04-2022 Total knee replacement LENARD ASENCIO MD Comment on above: Revision Start: 01-05-2022 Bone &/joint imaging 3 phase study Ge Maguire MD Work Phone: Start: 01-04-2022 MRI of abdomen with contrast Dr. Mark Smith Work Phone: Start: 12-30-2021 Arthrocentesis aspir &/inj major jt/bursa w/o us Suzette Paul PA-C Work Phone: Start: 12-28-2021 Radiologic examinati on knee 3 views Ge Maguire MD Work Phone: Start: 10-25-2021 Radiologic exam knee complete 4/more views Ge Maguire MD Work Phone: Start: 05-04-2021 Prostatectomy ANA DODGE MD Start: 04-29-2021 Robot assisted laparoscopic radical prostatectomy MARIA A STRICKLAND SPLITTER MACHINE-RADIOPHONE OPERATOR Start: 04-06-2021 Biopsy of prostate BERTA VILLA MD Start: 04-04-2021 Biopsy of prostate BERTA VILLA MD Start: 06-17-2018 Adult depression screening assessment Ge Maguire MD Work Phone: Start: 06-04-2016 Toe structure (body structure) ANA VILLA MD Comment on above: right great toe Start: 06-04-2015 Total knee replacement ANA VILLA MD Comment on above: Left knee Start: 06-04-1994 Cholecystectomy ANA VILLA MD Start: 06-04-1987 Vasectomy ANA VELA MD Start: 06-04-1977 Bilateral inguinal h ernia (disorder) ANA VILLA MD Comment on above: x 2 1994 and 1977 Arthroscopy of knee ANA VILLA MD Comment on above: Left knee x2 Bacteria identified in Urine by Culture Dr. Mark Smith Work Phone: Bilateral inguinal h ernia (disorder) ANA VILLA MD Cholecystectomy ANA PÉREZ MD H/O: surgery History of prostatectomy ANA VILLA MD H/O: surgery H/O prostatectomy Dr. Kevon Mackey DO Work Phone: Comment on above: 2020 Total knee replacement KARTIK VILLA MD Comment on above: Left knee Plan of Treatment Date Care Activity Detail Author Start: 11-23-2025 DIABETES SCREEN DIABETES SCREEN [facility] Start: 11-23-2025 Diabetes Screening Diabetes Screenin g [facility] Start: 11-06-2025 DIABETES SCREEN DIABETES SCREEN [facility] Start: 11-24-2024 Urine microalbumin profile DTaP,Tdap,Td Vaccine (2 - Td or Tdap) [facility] Start: 07-22-2024 Egd band ligation esophgeal/gastric varices EGD VARICES LIGATION [facility] Start: 07-22-2024 Egd transoral biopsy single/multiple EGD BIOPSY SINGLE/MULTIPLE [facility] Start: 07-22-2024 Patient discharge [facility] Start: 02-03-2024 Covid-19 Vaccine () Covid-19 Vaccine () [facility] Start: 02-03-2024 Covid-19 Vaccine () Covid-19 Vaccine () [facility] Start: 02-03-2024 Influenza vaccination Influenza Vacc ine (#1) [facility] Start: 11-07-2023 BP CONTROLLED (<130/80) BP CONTROLLE D (<130/80) [facility] Start: 02-02-2023 Covid-19 Vaccine ( season) Covid-19 Vaccine ( season) [facility] Start: 02-02-2023 Influenza vaccination C [facility] Start: 11-06-2022 End: 01-06-2023 TYPE AND SCREEN,30 DAY [facility] Work Phone: Comment on above: Expected: 11/06/2022 , Expires: 01/06/2023 Start: 08-04-2022 DIABETES SCREEN DIABETES SCREEN [facility] Start: 06-04-2022 DEPRESSION ASSESSMENT DEPRESSION ASS ESSMENT [facility] Start: 02-02-2022 Influenza vaccination INFLUENZA (#1) [facility] Start: 01-04-2022 MR Abdomen WO and W contrast IV [facility] Work Phone: Start: 01-04-2022 MRI of abdomen with contrast MRI Abd WITH and W/O Contrast [facility] Work Phone: Start: 12-28-2021 End: 02-27-2022 Erythrocyte sedimentation rate [facility] Work Phone: Comment on above: Expected: 12/28/2021 , Expires: 02/27/2022 Start: 08-16-2021 COVID-19 VACCINE (4 - Booster for Moderna series) COVID-19 VACCINE (4 - Booster for Moderna series) [facility] Start: 06-13-2021 COVID-19 VACCINE (4 - Booster for Moderna series) COVID-19 VACCINE (4 - Booster for Moderna series) [facility] Start: 06-13-2021 COVID-19 VACCINE (4 - Moderna series) COVID-19 VACCINE (4 - Moderna series) [facility] Start: 2019 RSV Vaccine (1 - 1-d ose 60+ series) RSV Vaccine (1 - 1-dose 60+ series) [facility] Start: 2019 RSV Vaccine (1 - Ris k 60-74 years 1-dose series) RSV Vaccine (1 - Risk 60-74 years 1-dose series) [facility] Start: 06-17-2019 Adult depression screening assessment DEPRESSION SCREENING [facility] Start: 12-13-2014 PROSTATE CANCER SCREENING DISCUSSION PROSTATE CANCER SCREENING DISCUSSION [facility] Start: 12-13-2014 Prostate specific antigen measurement Prostate Cancer Screening Discussion [facility] Start: 07-05-2011 HEPATITIS A (4 of 4 - Hep A Twinrix risk 4-dose series) HEPATITIS A (4 of 4 - Hep A Twinrix risk 4-dose series) [facility] Start: 12-13-2009 SHINGRIX VACCINE (1 of 2) SHINGRIX VACCINE (1 of 2) [facility] Start: 12-13-2004 COLOGUARD (FIT-DNA) COLOGUARD (FIT-D NA) [facility] Start: 12-13-2004 Colonoscopy COLONOSCOPY [facility] Start: 12-13-2004 COLORECTAL CANCER SCREENING COLORECTAL CANCER SCREENING [facility] Start: 12-13-[address] COLONOGRAPHY [facility] Start: 12-13-2004 FECAL OCCULT BLOOD FECAL OCCULT BLOO D [facility] Start: 12-13-2004 Screening for malign ant neoplasm of colon [facility] Start: 12-13-2004 SIGMOIDOSCOPY SIGMOIDOSCOPY [facility] Start: 12-13-1994 Lipid 1996 panel - S marcos or Plasma Lipid Screening [facility] Start: 12-13-1994 Lipid panel Lipid Screening [facility] Start: 12-13-1994 LIPID SCREEN LIPID SCREEN [facility] Start: 12-13-1978 Urine microalbumin profile DTAP,TDAP,TD (1 - Tdap) [facility] Start: 12-13-1977 ANNUAL PCP TEAM GERM DRIER INOCENCIO DISEASE VISIT ANNUAL PCP TEAM CHRONIC DISEASE VISIT [facility] Start: 12-13-1977 Anxiety Screening Anxiety Screening [facility] Start: 12-13-1977 BP CONTROLLED (<130/80) BP CONTROLLE D (<130/80) [facility] Start: 12-13-1977 Depression Screening Depression Scre ening [facility] Start: 12-13-1977 HIV SCREENING HIV SCREENING [facility] Start: 12-13-1977 HIV screening HIV Screening [facility] Start: 12-13-1965 PNEUMOCOCCAL (1 - PCV) PNEUMOCOCCAL (1 - PCV) [facility] Equan-[id number]. tumo r marker [Units/volume] in Serum or Plasma [facility] End: 01-27-2023 Bone &/joint imaging 3 phase study NM BONE 3 PHASE Radiology Routine Pain due to internal orthopedic prosthetic devices, implants and grafts, initial encounter ([facility]) 1 Occurrences starting 12/28/2021 until 01/27/2023 [facility] Work Phone: Comment on above: 1 Occurrences starti ng 12/28/2021 until 01/27/2023 Bone &/joint imaging 3 phase study NM BONE 3 PHASE Radiology Routine Pain due to internal orthopedic prosthetic devices, implants and grafts, initial encounter ([facility]) 01/05/2022 3:14 PM EDT [facility] Work Phone: C reactive protein [Mass/volume] in Serum or Plasma [facility] CBC W Auto Different ial panel - Blood [facility] CBC W Auto Different ial panel - Blood [facility] metabo lic 1999 panel - Serum or Plasma [facility] metabo lic 1999 panel - Serum or Plasma [facility] End: 11-07-2023 ECG COMPLETE ECG COMPLETE ECG Routine Preoperative examination 1 Occurrences starting 11/06/2022 until 11/07/2023 [facility] Work Phone: Comment on above: 1 Occurrences starti ng 11/06/2022 until 11/07/2023 ECG COMPLETE ECG COMPLETE ECG 11/06/2022 8:55 AM EDT [facility] Lipid 1996 panel - S marcos or Plasma [facility] Patient referral [facility] Work Phone: Prothrombin time [facility] Prothrombin time [facility] End: 12-28-2023 XR KNEE LIMITED 2V AP/LAT LEFT XR KNEE LIMITED 2V AP/LAT LEFT Radiology Routine Chronic pain of left knee 1 Occurrences starting 11/28/2022 until 12/28/2023 [facility] Work Phone: Comment on above: 1 Occurrences starti ng 11/28/2022 until 12/28/2023 XR KNEE POST OP 3V AP/LAT/MERCHANT LEFT XR KNEE POST OP 3V AP/LAT/MERCHANT LEFT Radiology Routine Knee swelling 12/28/2021 3:05 PM EDT [facility] Work Phone: [facility] Immunizations Immunization Date Immunization Notes Care Provider Xiao snell 06-13-2022 Pneumococcal conjuga te PCV20, polysaccharide [id number] conjugate, adjuvant, PF; Translations: [Prevnar 20] MARIA A STRICKLAND SPLITTER MACHINE-RADIOPHONE OPERATOR [facility] 03-09-2022 influenza, injectabl e, quadrivalent, contains preservative; Translations: [Fluarix PF Quadrivalent ] DEXTER ROLDAN SPLITTER MACHINE-RADIOPHONE OPERATOR [facility] 03-09-2022 influenza virus vacc ine, unspecified formulation [facility] 04-18-2021 COVID-19, mRNA, LNP- S, PF, 100 mcg/ 0.5 mL dose; Translations: [Moderna COVID-19 Vaccine] ANA VILLA MD [facility] 03-16-2021 influenza virus vacc ine, unspecified formulation ANA VILLA MD [facility] 09-16-2020 SARS-CoV-2 (COVID-19 ) mRNA-1273 vaccine ANA VILLA MD [facility] Comment on above: Result Comment: 2020: [id number] 08-19-2020 SARS-CoV-2 (COVID-19 ) mRNA-1273 vaccine ANA VILLA MD [facility] Comment on above: Result Comment: 2020: [id number] 07-21-2020 zoster vaccine recombinant ANA VILLA MD [facility] 05-20-2020 zoster vaccine recombinant ANA VILLA MD [facility] 03-11-2020 influenza, injectabl e, quadrivalent, preservative free; Translations: [Fluarix PF Quadrivalent ] ANA VILLA MD [facility] 03-12-2019 influenza, injectabl e, quadrivalent, preservative free; Translations: [Fluarix PF Quadrivalent ] ANA VILLA MD [facility] 04-10-2018 influenza virus vacc ine, unspecified formulation ANA VILLA MD [facility] 02-28-2017 influenza virus vacc ine, unspecified formulation ANA VILLA MD [facility] 08-03-2016 zoster vaccine, live ANA VILLA MD [facility] 03-19-2016 influenza virus vacc ine, unspecified formulation ANA VILLA MD [facility] 03-04-2016 influenza virus vacc ine, unspecified formulation ANA VILLA MD [facility] 04-28-2015 influenza virus vacc ine, unspecified formulation ANA VILLA MD [facility] 04-28-2015 influenza, seasonal, injectable Ge Maguire MD Work Phone: [facility] 04-02-2015 influenza virus vacc ine, unspecified formulation ANA VILLA MD [facility] 11-24-2014 tetanus toxoid, redu jie diphtheria toxoid, and acellular pertussis vaccine, adsorbed ANA VILLA MD [facility] 05-14-2014 influenza virus vacc ine, unspecified formulation ANA VILLA MD [facility] 04-04-2013 influenza virus vacc ine, unspecified formulation ANA VILLA MD [facility] 09-06-2012 hepatitis A vaccine, adult dosage ANA VILLA MD [facility] 01-15-2012 hepatitis A vaccine, adult dosage ANA VILLA MD [facility] 01-15-2012 pneumococcal polysaccharide vaccine, 23 valent ANA VILLA MD [facility] 01-02-2011 hepatitis A and hepatitis B vaccine Ge Maguire MD Work Phone: [facility] 09-07-2010 hepatitis A and hepatitis B vaccine Ge Maguire MD Work Phone: [facility] 07-05-2010 hepatitis A and hepatitis B vaccine Ge Maguire MD Work Phone: [facility] Payers Date Payer Category Payer Self-pay [id number] 2021 Unknown [id number] 2021 Unknown [id number] 2016 Unknown [id number] 2011 Unknown [id number] 1.2 .[id number] 1959 Unknown [id number] 2.16.8 40.1.002825.3.579.2.627 1959 Unknown [id number] 2.16.8 40.1.501863.3.579.2.627 1959 Unknown [id number] 2.16.8 40.1.056738.3.579.2.627 1959 Unknown [id number] 2.16.8 40.1.270200.3.579.2.627 1959 Unknown [id number] 2.16.8 40.1.247516.3.579.2.627 1959 Unknown [id number] 2.16.8 40.1.192810.3.579.2.627 1959 Unknown [id number] 2.16.8 40.1.361600.3.579.2.627 1959 Unknown [id number] 2.16.8 40.1.582703.3.579.2.627 1959 Unknown [id number] 2.16.8 40.1.047622.3.579.2.627 Unknown [id number] 2.16.8 40.1.619226.3.579.2.462 Unknown [id number] 2.16.8 40.1.841468.3.579.2.462 Unknown [id number] 2.16.8 40.1.555029.3.579.2.462 Unknown [id number] 2.16.8 40.1.866525.3.579.2.462 Unknown [id number] 2.16.8 40.1.157751.3.579.2.462 Unknown [id number] 2.16.8 40.1.973878.3.579.2.462 Unknown [id number] 2.16.8 40.1.192363.3.579.2.462 Unknown [id number] 2.16.8 40.1.863365.3.579.2.462 Unknown [id number] 2.16.8 40.1.607126.3.579.2.462 Unknown [id number] 2.16.8 40.1.898481.3.579.2.462 Unknown [id number] 2.16.8 40.1.827286.3.579.2.462 Unknown [id number] 2.16.8 40.1.256874.3.579.2.462 Unknown [id number] 2.16.8 40.1.907521.3.579.2.462 Unknown [id number] 2.16.8 40.1.007020.3.579.2.462 Unknown [id number] 2.16.8 40.1.915951.3.579.2.462 Unknown [id number] 2.16.8 40.1.799293.3.579.2.462 Unknown [id number] 2.16.8 40.1.850157.3.579.2.462 Social History Date Type Detail Facility Start: 11-26-2019 End: 07-18-2024 Never smoked tobacco (finding) [facility] Start: 1960 Sex Assigned At Male A [facility] Start: 08-13-2017 End: 10-26-2021 Tobacco smoking status GAIS Unknown if ever smoked [facility] Start: 10-25-2021 End: 11-06-2022 Alcohol intake Current non-drinker of alcohol (finding) [facility] Start: 06-15-2015 History SDOH Alcohol Comment former ETOH use. [facility] Start: 10-15-2021 End: 01-05-2022 Exposure to SARS-CoV-2 (event) Not sure [facility] Start: 11-04-2012 Tobacco use and exposure Smokeless tobacco non-user [facility] Start: 05-11-2020 End: 11-06-2022 History of Social function [facility] Start: 05-11-2020 End: 11-06-2022 Tobacco use panel [facility] Adult Depression Screening Assessment 0 [facility] Start: 09-17-2020 Gender identity Identifies as male gender (finding) [facility] Start: 09-17-2020 Sexual orientation Heterosexual (fin ding) [facility] Start: 08-28-2024 End: 09-04-2024 Sex Male (finding) [facility] Medical Equipment Procedure Code Equipment Code Equipment Origin al Text Equipment Identifier Dates EGD, with monitored anesthesia care Oesophageal endoscopic ligator, single-useHaemorrhoi d ligator [id number] FDA Start: 07-22-2024 AMELIA 3GRM HEMO STAT ABS FDA Start: 08-20-2017 Cement Palacos R Green Bone 40gm - [id number] Start: 06-28-2015 Component Person a Triathlon 12 Standard Cocr Femoral Cemented Posterior - [id number] Start: 06-28-2015 Component 41mm A ll Poly Patellar Psn - [id number] Start: 06-28-2015 Insert Persona 1 0-11 E-F Polyethylene 12mm Articular Posterior Stabilized - [id number] Start: 06-28-2015 Baseplate Person a 5d H Tivanium Tibial Cemented Stem Knee Left - [id number] Start: 06-28-2015 AMELIA 3GRM HEMO STAT ABS FDA Start: 08-20-2017 AMELIA 3GRM HEMO STAT ABS FDA Start: 08-20-2017 Kit Bioprep Bone Cement Preparation Plug [employer] [place] Curette Suction - [id number] Start: 11-22-2022 Triathlon Centra l Femoral Cone Augment Left [id number] Start: 11-22-2022 Augment Triathlo n 8 5mm Femoral Total Stabilize Knee Posterior - [id number] Start: 11-22-2022 AMELIA 3GRM HEMO STAT ABS FDA Start: 08-20-2017 Cement Simplex P Bone Radiopaque Full Dose Sterile - [id number] Start: 11-22-2022 Cement Simplex P Bone Radiopaque Full Dose Sterile - [id number] Start: 11-22-2022 Kit Bioprep Bone Cement Preparation Plug [employer] [place] Curette Suction - [id number] Start: 11-22-2022 Augment Triath T ib Cone Sz E - [id number] Start: 11-22-2022 Baseplate Triath damien 7 [place] Cocr Tibial Total Stabilize Cemented Knee - [id number] Start: 11-22-2022 Component Triath damien 8 Cocr Femoral Total Stabilize Knee Left - [id number] Start: 11-22-2022 Stem Triathlon 1 5mm Cocr 50mm Femoral Cemented Total Stabilize Knee - [id number] Start: 11-22-2022 Augment Triathlo n 8 5mm Femoral Total Stabilize Knee Posterior - [id number] Start: 11-22-2022 Augment Triathlo n 7 5mm Tibial Total Stabilize Right Medial Left Lateral - [id number] Start: 11-22-2022 Stem Triathlon 1 5mm Cocr 50mm Femoral Cemented Total Stabilize Knee - [id number] Start: 11-22-2022 Augment Triathlo n 7 5mm Tibial Total Stabilize Left Medial Right Lateral - [id number] Start: 11-22-2022 AMELIA 3GRM HEMO STAT ABS FDA Start: 08-20-2017 AMELIA 3GRM HEMO STAT ABS FDA Start: 08-20-2017 AMELIA 3GRM HEMO STAT ABS FDA Start: 08-20-2017 AMELIA 3GRM HEMO STAT ABS FDA Start: 08-20-2017 Goals Date Patient Goal Desired Activity /State Functional Status Date Assessment Result Facility 12-11-2022 Functional Status Home Living Ad ditional Information Objective: Cardiovascular screen: BP: 130/80 HR: 67 BPM 98% Gait: Ambulates with FWW and 50% weight bearing. Does fairly well once given cues and walker Weight bearing status: 50% WB with cruthces or walker. Observation: no excess redness to L knee, no obvious signs of infection, Steri strips still intact Effusion: min to no effusion L knee [facility] 02-24-2022 Functional Status Sleeping quiet ly with easy respirations [facility] 02-24-2022 Functional Status [facility] 11-07-2021 Functional Status Standard Safet y ID band on, Allergy Band on, Call device within reach, Bed in low position, Wheels locked, Upper/Half-Length side-rails up, Bedside Cart Locked, Safety level maintained [facility] 10-24-2021 Functional Status [facility] 10-24-2021 Functional Status [facility] Mental Status Date Assessment Result Facility 07-22-2024 Cognitive function Level Of Consciousness Sedated [facility] Work Phone: 02-24-2022 Mental Status Orientation Asse ssment Oriented x 4 [facility] 11-07-2021 Mental Status Orientation Oriented x 4 [facility] 10-24-2021 Mental Status [facility] 10-24-2021 Mental Status [facility] Clinical Notes 06-28-2015 to 07-22-2024 Note Date & Type Note Facility 07-22-2024 Note [facility] Medical Records Department [address] [place] [address] History Physical Exam 07/22/24 1224 MR#: [id number] Acct: [id number] Name: SRINATH PEPE Rep #: [id number] : 1960 63 From: Bism[place] Montoya DO PCP: Dr. Kevon Mackey, DO Status:REG [facility] Location: [place] [address] HPI - General General Date of Admission: 07/22/24 Date of Service: 07/22/24 Chief Complaint: varices screening HPI Narrative SRINATH PEPE, is a 63 M who presents for an EGD regarding variceal screening. Previously established with Dr. Frye for chronic liver issues. [facility] alcoholic cirrhosis of liver, history of alcohol abuse, thrombocytopenia d/t liver disease, GERD. Cessation of alcohol in 2008. Omeprazole taken for GERD, symptoms under control. He is working hard with diet and exercise to lose weight. Denies any family related primary liver pathology but is a brother from [place] cancer metastasized to liver. 01.05.20 CT abdomen w/ contrast- liver is heterogenous with a micronodular contour consistent with given history of cirrhosis. No definite focal lesion identified. S/P cholecystectomy. Spleen heterogenous and enlarged. Portal vein measures 1.7 cm and appears patent. A subcentimeter RIGHT renal hypodensity is too small to accurately characterized but likely represents a cyst. A LEFT renal cycst is also shown. Small hiatal hernia. Atherosclerotic changes shown in the normal caliber aorta. Findings consistent with given history of cirrhosis with evidence of portal hypertension. 01.04.22 MRI abdomen w/wo contrast- Diffuse contour abnormality of liver consistent with cirrhotic changes. Severe splenomegaly. 11.20.22 US abdomen, Liver demonstrates heterogenous echogenicity with a lobulated border. A left renal cyst measures 2.6 x 2.8 x 2.3 cm. Spleen enlarged measures 17.8 x17.9 x 5.7. EGD, trace esophageal varices. No acute complaint. Patient quit alcohol about 15 years ago in 2008. 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 Kuo till now. Last blood work from January [address] abdomen and MRI reviewed. No recent history of GI bleed, ascites, jaundice or bleeding. Cirrhosis seems compensate 02.29.24- MELDna 9 OV 12..24- Pt well since last visit. Denies abdominal pain, changes in bowels, dizziness, confusion or swelling. No complaints today. [facility] Medical History (Updated 07/22/24 @ 12:[address] Sofia Friend, DO) Wears hearing aid Wears glasses Cirrhosis Migraine headache Gastric reflux Non-smoker Palpitations Low back pain Dyslipidemia Urinary incontinence, functional Hypertension Erectile dysfunction Chronic migraine Prostate cancer Thrombocytopenia Alcohol abuse Arthritis Hiatal hernia GERD (gastroesophageal reflux disease) Alcoholic cirrhosis of liver Restless leg syndrome Home Medications ???Medication ???Instructions ???Recorded ???Last Taken ???Type multivitamin (Multiple Vitamins 1 ea PO DAILY 09/29/16 Unknown His tory tablet) rimegepant 75 mg disintegrating 75 mg PO ONCE PRN migraine headach e 10/26/21 Unknown History tablet (Nurtec ODT) sumatriptan succinate 100 mg tablet 100 mg PO ONCE PRN migraine Unknown History headache cholecalciferol (vitamin D3) 125 125 mcg PO QDAY 02/29/24 Unknown H istory mcg (5,000 unit) tablet omeprazole 20 mg capsule,delayed 20 mg PO QDAY 02/29/24 07/22/24 06 :02 History release vitamin B complex 1 cap PO QDAY 02/29/24 Unknown His tory tadalafil 20 mg tablet 20 mg PO DAILY PRN sexual activity 07/10/24 Unknown History amlodipine 10 mg tablet 10 mg PO QDAY #90 tabs 07/18/24 06:00 Rx carvedilol 25 mg tablet 25 mg PO BID #180 tabs 07/18/24 06:01 Rx coenzyme Q10 400 mg capsule 400 mg PO QDAY 07/18/24 Unknown Hi story lactobacillus combination no.4 3 3,000 mmu cells PO QDAY 07/18/24 U nknown History billion cell capsule (Probiotic) valsartan 160 mg tablet 160 mg PO QDAY #90 tabs 07/18/24 0 07/22/24 06:01 Rx Allergy/AdvReac Type Severity Reaction Status Date / Time fluoxetine (From Prozac) Allergy Hives Verified 07/22/24 10:59 sertraline Allergy Rash Verified 07/22/24 10:59 doxazosin AdvReac Weakness Verified 07/22/24 10:59 oxycodone AdvReac HICCUPS Verified 07/22/24 10:59 Family History Mother Arthritis Hypertension Father CAD (coronary artery disease) Heart disease Brother Cancer Liver Other Alcoholism Surgical History History of hernia surgery History of esophagogastroduodenoscopy (EGD) History of colonoscopy History of vasectomy History of toe surgery History of radical prostatectomy History of total left knee repl (more content not included)... [facility] 07-18-2024 Evaluation note Diagnosis Onset Date Resolution Hypertension chronic July 1:23pm Varices of esophagus determined by endoscopy acute July 22, 2024 10:35am Cirrhosis deleted July 22, 2024 10:35am Varices of esophagus determined by endoscopy acute September 8:08am Alcoholic cirrhosis of liver chronic September 10, 2024 8:08am Dyslipidemia chronic September 10, 8:08am [facility] Work Phone: 1(469) 776-104512-10-2024 Evaluation note* Diagnosis Onset Date Resolution Status Admit Date Alcoholic cirrhosis of liver chronic May 13, 2024 8:06am Dyslipidemia chronic May 8:06am Hypertension chronic July 1:23pm Cirrhosis acute July 22, 2024 10:35am Varices of esophagus determined by endoscopy acute July 22, 2024 10:35am [facility] Work Phone: 1(391) 223-571109-03-2024 NoteHNO ID: [id number] Author: MATEO SAWANT APRN.RADIOPHONE OPERATOR Service: ? Author Type: Nurse Practitioner Type: Progress Notes Filed: 02/05/2024 09:50 Note Text: Orthopaedic Office Note: February 05, 2024 9:47 AM Srinath Elizabeth My 63 year old History: Srinath is a very pleasant 63-year-old male who presents today for left knee evaluation. He is well-known to me having undergone a left total knee revision with Dr. Thomas on 11/22/2022. He is here for his 1 year follow-up. He reports no pain. He reports he has been very active on the knee doing yard work and exercising and reports no difficulties doing any activities. He is overall very happy with his progress and surgery. Subjective: Left knee 1 year follow-up Updated ROS: No changes Updated Exam: Left Lower Extremity: KNEE EXAM: Left: Incision healed without erythema or warmth Range of motion is 0 degrees in extension and 130 degrees of flexion. Pain with ROM: No Effusion: None Tender to the palpation of None Pain with patellar compression: No Stability: Anterior/Posterior stable and Varus/Valgus stable Hip Exam: flexion to 100+ degrees, full extension, internal/external rotation adequate and no pain with log roll Neurovascular Status: Sensation Intact and Moves foot and ankle up AND down Updated Imaging: Left total knee arthroplasty in appropriate position without evidence for loosening osteolysis. No fracture. Assessment and Plan: Status post left knee revision Srinath presents today for left knee follow up. X-rays show well-appearing left knee revision. Vascular exam is likely normal limits. Overall, he continues to do very well following his left knee revision surgery with Dr. Thomas. He can continue to do activities as tolerated. Should follow-up in 2 years time with repeat x-rays. APC sooner if needed. All questions answered today. Mateo Sawant APRN.RADIOPHONE OPERATOR Orthopaedic Surgery I spent a total of approximately 15 minutes on the date of the service which included preparing to see the patient, [id number] patient care, completing clinical documentation, obtaining and/or reviewing separately obtained history, performing a medically appropriate examination, counseling and educating the patient/family/caregiver, and care coordination (not separately reported). [facility]09-03-2024 History of Present illness Narrative* Mateo Sawant APRN.RADIOPHONE OPERATOR - 02/05/2024 9:47 AM EDT Orthopaedic Office Note: February 05, 2024 9:47 AM Srinath Pepe 63 year old History: Srinath is a very pleasant 63-year-old male who presents today for left knee evaluation. He is well-known to me having undergone a left total knee revision with Dr. Thomas on 11/22/2022. He is here forhis 1 year follow-up. He reports no pain. He reports he has been very active on the knee doing yardwork and exercising and reports no difficulties doing any activities. He is overall very happy withhis progress and surgery. Subjective: Left knee 1 year follow-up Updated ROS: No changes Updated Exam: Left Lower Extremity: KNEE EXAM: Left: Incision healed without erythema or warmth Range of motion is 0 degrees in extension and 130 degrees of flexion. Pain with ROM: No Effusion: None Tender to the palpation of None Pain with patellar compression: No Stability: Anterior/Posterior stable and Varus/Valgus stable Hip Exam: flexion to 100+ degrees, full extension, internal/external rotation adequate and no pain with log roll Neurovascular Status: Sensation Intact and Moves foot and ankle up & down Updated Imaging: Left total knee arthroplasty in appropriate position without evidence for loosening osteolysis. No fracture. Assessment and Plan: Status post left knee revision Srinath presents today for left knee follow up. X-rays show well-appearing left knee revision. Vascular exam is likely normal limits. Overall, he continues to do very well following his left knee revision surgery with Dr. Thomas. He can continue to do activities as tolerated. Should follow-up in 2 years time with repeat x-rays. APC sooner if needed. All questions answered today. Mateo Sawant APRN.JOYCE Orthopaedic Surgery I spent a total of approximately 15 minutes on the date of the service which included preparing to see the patient, [id number] patient care, completing clinical documentation, obtaining and/or reviewing separately obtained history, performing a medically appropriate examination, counseling and educating the patient/family/caregiver, and care coordination (not separately reported). [facility] History of Present illness Narrative* Nelia Mazariegos Tech - 02/05/2024 9:00 AM EDT Radiology Service Progress Note PATIENT NAME: Srinath Pepe DATE OF SERVICE: February 05, 2024 TIME: 9:08 AM PATIENT IDENTITY VERIFICATION COMPLETED USING TWO (2) IDENTIFIERS: Name and Date of confirmedby patient verbally. FALL SCREENING: Has the patient had 2 falls in the last year or 1 fall with injury or currently using an Ambulatory Assistive Device (Walker, Cane, Wheelchair, Crutches, etc.)? No PATIENT GENDER DATA: Male PATIENT RELEVANT IMPLANT DATA REVIEWED: Not Applicable PATIENT PRESENTS WITH AN IMPLANTABLE OR ATTACHED PADDLE DYEING MACHINE OPERATOR: No RADIOLOGY DEPARTMENT: General X-ray: Exam(s) Completed: Lower Extremity X- Ray(s): Knee, AP / Lat / Merchant Left and Wt. Bearing PERIPHERAL IV DATA: Not applicable SIGNED BY: Abdifatah Alfonso February 05, 2024 9:08 AM documented in this encounterTr[facility]09-03-2024 NoteHNO ID: [id number] Author: NELIA MAZARIEGOS Tech Service: ? Author Type: Sewing Machine Operator Plastic Zipper Type: Progress Notes Filed: 02/05/2024 09:09 Note Text: Radiology Service Progress Note PATIENT NAME: Srinath Pepe DATE OF SERVICE: February 05, 2024 TIME: 9:08 AM PATIENT IDENTITY VERIFICATION COMPLETED USING TWO (2) IDENTIFIERS: Name and Date of confirmed by patient verbally. FALL SCREENING: Has the patient had 2 falls in the last year or 1 fall with injury or currently using an Ambulatory Assistive Device (Walker, Cane, Wheelchair, Crutches, etc.)? No PATIENT GENDER DATA: Male PATIENT RELEVANT IMPLANT DATA REVIEWED: Not Applicable PATIENT PRESENTS WITH AN IMPLANTABLE OR ATTACHED PADDLE DYEING MACHINE OPERATOR: No RADIOLOGY DEPARTMENT: General X-ray: Exam(s) Completed: Lower Extremity X-Ray(s): Knee, AP / Lat / Merchant Left and Wt. Bearing PERIPHERAL IV DATA: Not applicable SIGNED BY: Abdifatah Alfonso February 05, 2024 9:08 AMMain Campus Medical [id number] NoteHNO ID: [id number] Author: Mateo Sawant APRN.CNP Service: ? Author Type: Nurse Practitioner Type: Progress Notes Filed: 02/27/2023 9:11 AM Note Text: Post-op Office Visit Srinath Pepe 62 year old February 27, 2023 9:08 AM Surgery Date: 11/22/22 History: Srinath Pepe Is now 12 weeks out from S/P Left knee revision. Post-operative course has been without complication. No readmission/complications Subjective: Patient reports no pain. Overall is doing well. No ambulatory aid No opioid pain medication Objective: Ambulates with none Incision well-healed ROM 0 - 115 Distally DP/PT palpable Distally S/S/SP/DP/T intact at baseline Distally DF/EHL/PF intact at baseline Negative ginger/calf tenderness Xrays: Left revision knee arthroplasty in appropriate position without evidence for loosening or osteolysis Assessment and Plan: Srinath Pepe Is here for repeat office visit -continued ice, rest, and use of non-narcotic analgesia as needed -discussed home exercises and slow advancement of activities -Letter to return to gym -WBAT on operative extremity -will see back at 1 year post-op for repeat exam and xrays--can see sooner if needed -discussed red flag symptoms of acutely increasing pain, new erythema, new swelling, drainage, shortness of breath Mateo Sawant APRN.JOYCE [facility] History of Present illness Narrative* Alison Alexander RT(R) - 02/27/2023 8:20 AM EDT Radiology Service Progress Note PATIENT NAME: Srinath Pepe DATE OF SERVICE: February 27, 2023 TIME: 8:16 AM PATIENT IDENTITY VERIFICATION COMPLETED USING TWO (2) IDENTIFIERS: Name and Date of confirmedby patient verbally. FALL SCREENING: Has the patient had 2 falls in the last year or 1 fall with injury or currently using an Ambulatory Assistive Device (Walker, Cane, Wheelchair, Crutches, etc.)? No PATIENT GENDER DATA: Male PATIENT RELEVANT IMPLANT DATA REVIEWED: Not Applicable RADIOLOGY DEPARTMENT: General X-ray: Exam(s) Completed: Lower Extremity X- Ray(s): Knee, AP / Lat / Merchant Bilateral and Wt. Bearing PERIPHERAL IV DATA: Not applicable SIGNED BY: RT Daisy(aKit) February 27, 2023 8:16 AM documented in this encounterTr[facility] System09-26-2023 NoteHNO ID: [id number] Author: Alison Alexander RT(R) Service: ? Author Type: Technologist Type: Progress Notes Filed: 02/27/2023 8:16 AM Note Text: Radiology Service Progress Note PATIENT NAME: Srinath Pepe DATE OF SERVICE: February 27, 2023 TIME: 8:16 AM PATIENT IDENTITY VERIFICATION COMPLETED USING TWO (2) IDENTIFIERS: Name and Date of confirmed by patient verbally. FALL SCREENING: Has the patient had 2 falls in the last year or 1 fall with injury or currently using an Ambulatory Assistive Device (Walker, Cane, Wheelchair, Crutches, etc.)? No PATIENT GENDER DATA: Male PATIENT RELEVANT IMPLANT DATA REVIEWED: Not Applicable RADIOLOGY DEPARTMENT: General X-ray: Exam(s) Completed: Lower Extremity X-Ray(s): Knee, AP / Lat / Merchant Bilateral and Wt. Bearing PERIPHERAL IV DATA: Not applicable SIGNED BY: RT Daisy(R) February 27, 2023 8:16 AMMain Campus Medical [id number] History of Present illness Narrative* Mateo Sawant APRN.CNP - 01/09/2023 11:14 AM EDT Post-op Office Visit Srinath Pepe 62 year old January 09, 2023 11:31 AM Surgery Date: 11/22/22 History: Srinath Pepe Is now 6 weeks out from S/P Revision Left TKA. Post-operative course has been without complication. No readmission/complications Subjective: Patient reports no pain. Overall is doing well. Crutches ambulatory aid No opioid pain medication Objective: Ambulates with crutches Incision well-approximated, no drainage, normal hetal-incisional erythema ROM 0 - 120 Distally DP/PT palpable Distally S/S/SP/DP/T intact at baseline Distally DF/EHL/PF intact at baseline Negative ginger/calf tenderness Xrays: Well-positioned total knee replacement in appropriate alignment with no evidence of loosening Assessment and Plan: Srinath Pepe Is here for a second post-op appointment, overall doing well -continued ice, rest, and use of non-narcotic analgesia as needed -discussed home exercises and advancement of activity as tolerated -RTW letter provided -Advance to WBAT on operative extremity -continue ankle pumps and dvt ppx through 4 weeks -will see back in 6-8 weeks with repeat x-rays (3V) -discussed red flag symptoms of acutely increasing pain, new erythema, new swelling, drainage, shortness of breath Mateo Sawant APRN.CNP Orthopaedic Surgery documented in this encounterTr[facility] System08-08-2023 History of Present illness Narrative* Alison Alexander RT(R) - 01/09/2023 11:00 AM EDT Radiology Service Progress Note PATIENT NAME: Srinath Pepe DATE OF SERVICE: January 09, 2023 TIME: 11:09 AM PATIENT IDENTITY VERIFICATION COMPLETED USING TWO (2) IDENTIFIERS: Name and Date of confirmedby patient verbally. FALL SCREENING: Has the patient had 2 falls in the last year or 1 fall with injury or currently using an Ambulatory Assistive Device (Walker, Cane, Wheelchair, Crutches, etc.)? No PATIENT GENDER DATA: Male PATIENT RELEVANT IMPLANT DATA REVIEWED: Not Applicable RADIOLOGY DEPARTMENT: General X-ray: Exam(s) Completed: Lower Extremity X- Ray(s): Knee, AP / Lat / Merchant Bilateral and Wt. Bearing PERIPHERAL IV DATA: Not applicable SIGNED BY: RT Daisy(R) January 09, 2023 11:09 AM documented in this encounterTrinity Health System07-20-2023 History of Present illness Narrative* Mateo Sawant APRN.CNP - 12/21/2022 9:36 AM EDT Srinath Pepe returns for repeat incision check and ROM check. He is now 4 outs from revision left total knee. He reports overall he is doing much better. He is only taking 1-2 Tramadol in a day. He is working outpatient PT at [place]. He has no concerns today. Physical exam demonstrates well healed incision without erythema or warmth. ROM today is 3-105. Stable ligamentous exam. N/V intact. Discussed today he should remain PWB. Continue ROM exercises and PT as scheduled. Follow up in 2 weeks with repeat x-ra\ys (standard post op 3V). Instructed to contact office sooner if he runs into issues. Mateo Sawant APRN.[facility]CE Orthopaedic Surgery documented in this encounterTrinity Health System07-14-2023 Miscellaneous Notes* Telephone Encounter - Nelia Duenas RN - 12/15/2022 8:49 AM EDT Pt calling, S/p L revision TKA States he's having increased and severe thigh pain on the left side, today it's more of a dull pain. PT advised to call. Spoke with Vin, stated that the pain is much better today than the past week. Asked if he is following the 50% PWB, pt stated he is. If pain gets worse, advised to take an anti-inflammatory and if it continues into next week, to give us a call and we can set up imaging (per Dr. Thomas). Pt verbalized understanding. documented in this encounterTrinity Health System07-10-2023 Miscellaneous Notes* Telephone Encounter - Nelia Duenas RN - 12/11/2022 9:01 AM EDT Ramos, PT from [facility]. . [phone] Asking if there are any protocols, restrictions, or precautions that he needs to be aware of. Per Jose's note on 12/07: PWB 50% on operative extremity Spoke with Ramos, told him above, verbalized understanding. Asked about ROM, stated Jose wants to see him back in 2 weeks for an incision and ROM check, so heneeds to work on increasing ROM, verbalized understanding. documented in this encounterTrinity Health System07-06-2023 History of Present illness Narrative* Mateo Sawant APRN.JOYCE - 12/07/2022 11:11 AM EDT Post-op Office Visit Srinath Pepe 61 year old December 07, 2022 11:46 AM Surgery Date: 11/22/22 History: Srinath Pepe Is now 2 weeks out from S/P Revision Left TKA. Post-operative course has been without complication. No readmission/complications Subjective: Patient reports decreasing pain. Overall is doing well. Crutches ambulatory aid [place] and wants to switch to tramadol for opioid pain medication Objective: Ambulates with crutches Incision well-approximated, no drainage, normal hetal-incisional erythema. There is scabbing midlineand proximal incision. ROM 0 - 60 Distally DP/PT palpable Distally S/S/SP/DP/T intact at baseline Distally DF/EHL/PF intact at baseline Negative ginger/calf tenderness Xrays: Well-positioned total knee replacement in appropriate alignment with no evidence of loosening Assessment and Plan: Srinath Pepe Is here for a first post-op appointment, overall doing well -continued ice, rest, and use of non-narcotic analgesia as needed -discussed home exercises and therapy -PWB 50% on operative extremity -continue ankle pumps and dvt ppx through 4 weeks -will see back in 2 weeks for incision check and ROM check -discussed red flag symptoms of acutely increasing pain, new erythema, new swelling, drainage, shortness of breath Mateo Sawant APRN.[facility] Orthopaedic Surgery documented in this encounterTrinity Health System07-06-2023 History of Present illness Narrative* Greer Meredith Tech - 12/07/2022 11:10 AM EDT Radiology Service Progress Note PATIENT NAME: Srinath Pepe DATE OF SERVICE: December 07, 2022 TIME: 10:53 AM PATIENT IDENTITY VERIFICATION COMPLETED USING TWO (2) IDENTIFIERS: Name and Date of confirmedby patient verbally. FALL SCREENING: Has the patient had 2 falls in the last year or 1 fall with injury or currently using an Ambulatory Assistive Device (Walker, Cane, Wheelchair, Crutches, etc.)? No PATIENT GENDER DATA: Male PATIENT RELEVANT IMPLANT DATA REVIEWED: Not Applicable RADIOLOGY DEPARTMENT: General X-ray: Exam(s) Completed: Lower Extremity X- Ray(s): Knee, AP / LAT Left and Wt. Bearing PERIPHERAL IV DATA: Not applicable SIGNED BY: Abdifatah Campos December 07, 2022 10:53 AM documented in this encounterTrinity Health System06-30-2023 Miscellaneous Notes* Telephone Encounter - Madelin Caruso - 12/01/2022 1:01 PM EDT Patient has been identified by name and date of : Yes Requested Prescriptions Pending Prescriptions Disp Refills HYDROcodone-acetaminophen (NORCO) 5-325 mg per tablet 50 tablet 0 Sig: Take 1-2 tablets by mouth every 6 hours as needed for pain. RX INSTRUCTIONS: Patient aware RX will be sent to pharmacy. No need to notify patient. Madelin Caruso documented in this encounterTrinity Health System06-29-2023 Miscellaneous Notes* Telephone Encounter - Nelia Duenas RN - 11/30/2022 8:43 AM EDT Pt calling. S/p revision of L TKA. Stating he has a rash on his back, possibly from the [place]. Spoke with pt, told him the rash could be from the doxycycline. Advised to take benadryl as directed on the bottle and that if the rash gets worse, stop the doxy and call us. Pt verbalized understanding. documented in this encounterTrinity Health System06-21-2023 History of Past illness Narrative* Problem Noted Date Resolved Date Aseptic loosening of prosthetic knee, initial en counter 11/22/2022 11/23/2022 Arthritis of knee, left 06/28/2015 06/28/19 16 Arthritis of left knee 11/11/2013 6 documented as of this encounter (statuses as of 11/28/2022) [facility] of Past illness Narrative* Problem Noted Date Resolved Date Aseptic loosening of prosthetic knee, initial en counter 11/22/2022 11/23/2022 Arthritis of knee, left 06/28/2015 06/28/19 16 Arthritis of left knee 11/11/2013 6 documented as of this encounter (statuses as of 11/30/2022) [facility] of Past illness Narrative* Problem Noted Date Resolved Date Aseptic loosening of prosthetic knee, initial en counter 11/22/2022 11/23/2022 Arthritis of knee, left 06/28/2015 06/28/19 16 Arthritis of left knee 11/11/2013 6 documented as of this encounter (statuses as of 12/01/2022) [place] [address]-21-2023 History of Past illness Narrative* Problem Noted Date Resolved Date Aseptic loosening of prosthetic knee, initial en counter 11/22/2022 11/23/2022 Arthritis of knee, left 06/28/2015 06/28/19 16 Arthritis of left knee 11/11/2013 6 documented as of this encounter (statuses as of 12/07/2022) [facility] of Past illness Narrative* Problem Noted Date Diagnosed Date Resolved Date Aseptic loosening of prosthe tic knee, initial encounter 11/22/2022 11/23/2022 Arthritis of knee, left 06/28/201506/05 Arthritis of left knee 11/11/201306/28 documented as of this encounter (statuses as of 12/11/2022) [facility] of Past illness Narrative* Problem Noted Date Diagnosed Date Resolved Date Aseptic loosening of prosthe tic knee, initial encounter 11/22/2022 11/23/2022 Arthritis of knee, left 06/28/201506/05 Arthritis of left knee 11/11/201306/28 documented as of this encounter (statuses as of 12/15/2022) [facility] of Past illness Narrative* Problem Noted Date Diagnosed Date Resolved Date Aseptic loosening of prosthe tic knee, initial encounter 11/22/2022 11/23/2022 Arthritis of knee, left 06/28/201506/05 Arthritis of left knee 11/11/201306/28 documented as of this encounter (statuses as of 12/21/2022) [facility] of Past illness Narrative* Problem Noted Date Diagnosed Date Resolved Date Aseptic loosening of prosthe tic knee, initial encounter 11/22/2022 11/23/2022 Arthritis of knee, left 06/28/201506/05 Arthritis of left knee 11/11/201306/28 documented as of this encounter (statuses as of 12/29/2022) [facility] of Past illness Narrative* Problem Noted Date Diagnosed Date Resolved Date Aseptic loosening of prosthe tic knee, initial encounter 11/22/2022 11/23/2022 Arthritis of knee, left 06/28/201506/05 Arthritis of left knee 11/11/201306/28 documented as of this encounter (statuses as of 01/09/2023) [facility] Note ORIGINAL EXAMINATION: COMPLETE ABDOMINAL ULTRASOUND 11/20/2022 9:23 am COMPARISON: Prior CT of the abdomen dated 01/05/2020. HISTORY: ORDERING SYSTEM PROVIDED HISTORY: Reason for Exam: CIRRHOSIS FINDINGS: LIVER: The liver demonstrates heterogenous echogenicity with a lobulated border on the basis of known underlying cirrhosis. No evidence of intrahepatic biliary ductal dilatation. BILIARY SYSTEM: Gallbladder is surgically absent. Common bile duct is within normal limits measuring 5 mm. KIDNEYS: The kidneys are unremarkable in appearance without evidence of hydronephrosis. A left renal cyst is seen measuring 2.6 x 2.8 x 2.3 cm PANCREAS: Visualized portions of the pancreas are unremarkable. SPLEEN: The spleen is enlarged measuring 17.8 x 17.9 x 5.7 cm. IVC: The IVC is patent. AORTA: Aorta is patent without aneurysm. OTHER: No evidence of ascites. IMPRESSION: Cirrhotic morphology of the liver with splenomegaly indicative of underlying portal venous hypertension. Left renal cyst. Interpreted by: Darleen Jackson MD Preliminary Report By: Darleen Jackson MD Electronically signed By Darleen Jackson MD Dictated Date: 11/20/2022 1:49:34 PM Prelim Date: 11/20/2022 1:52:51 PM Sign Date: 11/20/2022 1:52:51 PM Ordering Provider: EDILBERTO FRYE [facility]06-19-2023 Note ORIGINAL EXAMINATION: COMPLETE ABDOMINAL ULTRASOUND 11/20/2022 9:23 am COMPARISON: Prior CT of the abdomen dated 01/05/2020. HISTORY: ORDERING SYSTEM PROVIDED HISTORY: Reason for Exam: CIRRHOSIS FINDINGS: LIVER: The liver demonstrates heterogenous echogenicity with a lobulated border on the basis of known underlying cirrhosis. No evidence of intrahepatic biliary ductal dilatation. BILIARY SYSTEM: Gallbladder is surgically absent. Common bile duct is within normal limits measuring 5 mm. KIDNEYS: The kidneys are unremarkable in appearance without evidence of hydronephrosis. A left renal cyst is seen measuring 2.6 x 2.8 x 2.3 cm PANCREAS: Visualized portions of the pancreas are unremarkable. SPLEEN: The spleen is enlarged measuring 17.8 x 17.9 x 5.7 cm. IVC: The IVC is patent. AORTA: Aorta is patent without aneurysm. OTHER: No evidence of ascites. IMPRESSION: Cirrhotic morphology of the liver with splenomegaly indicative of underlying portal venous hypertension. Left renal cyst. Interpreted by: Darleen Jackson MD Preliminary Report By: Darleen Jackson MD Electronically signed By Darleen Jackson MD Dictated Date: 11/20/2022 1:49:34 PM Prelim Date: 11/20/2022 1:52:51 PM Sign Date: 11/20/2022 1:52:51 PM Ordering Provider: [facility] (formerly [facility]06-05-2023 Instructions* Patient Instructions* Loulou Taylor PA-C - 11/06/2022 9:08 AM EDT PATIENT PREOPERATIVE INSTRUCTIONS [facility]: [phone] -- [address] [place] [address]. Please read below carefully for your personalized instructions. Dietary Restrictions: - No solid food after midnight. - You may have 12 ounces of clear liquids (water, clear juices such as apple juice or gatorade, carbonated beverages, clear tea, black coffee, jello) until 2 hours before scheduled arrival at facility. Medications: Unless instructed differently below, stay on all of your medications until your surgery. Approved medications to take the morning of surgery with a sip of water: verapamil, omeprazole. DO NOT TAKE YOUR LOSARTAN THE NIGHT BEFORE OR MORNING OF SURGERY. If you take any medications for erectile dysfunction-Cialis (Tadalafil), Levitra, Staxyn (Vardenafil) Viagra (Sildenenafil please do not take these for 48 hours before surgery. If you start any new medications after today's visit, please contact the surgeon's office. Blood Thinning Medications: - Stop NSAIDS (Ibuprofen, Advil, Aleve, Motrin, Celebrex, Mobic, etc.) 7 days before surgery, as directed by your surgeon. - Stop Aspirin 7 days before surgery, as directed by your surgeon. - Stop Vitamin E, ALL multi-vitamins, herbals and dietary supplements 7 days before surgery. - You may take Tylenol (Acetaminophen) or any of your pain medications that do not contain aspirin or NSAIDS as needed. Important Reminders: - Candy, mints, and tobacco products are NOT permitted the morning of surgery. - Hearing aids, dentures and glasses may be worn the morning of surgery. - NO jewelry, body piercings, makeup, hairpins or contacts are to be worn the day of surgery. If you develop symptoms such as a fever, cold, or flu, or have other changes to your health within TWO DAYS of scheduled surgery or the morning of surgery, please contact the surgery center above. Personal Belongings: -Please have photo ID and insurance cards. -If you do not have a copy of advance directives on file with us, please bring a copy with you on the day of surgery. - Leave ALL valuables and money at home or with family members. Arrival Time for Surgery: - The Surgery Center or hospital where you are having surgery will call the afternoon before surgery (or Sunday for Sunday surgery) with a scheduled arrival time. - If you have not heard by 4 pm, please contact the surgery center above. Please be aware that emergency situations arise, which may delay or change your surgical time. If this happens, we will notify you as soon as possible and regret any inconvenience. If you already have an Advance Directive, please fax a copy to [phone] or email to for it to be added to your chart. If you do not have an Advance Directive, you can find the appropriate form and more information at [email or web address]. We recommend that youcomplete the Advance Directive form found on the website and bring it with you the day of your surgery. It can be witnessed and scanned into your chart that day. documented in this encounterTrinity Health System06-02-2023 History and physical note * Loulou Taylor PA-C - 11/03/2022 12:03 PM EDT HISTORY AND PHYSICAL EXAMINATION SERVICE DATE: 11/06/2022 SERVICE TIME: 8:46 AM PRIMARY CARE PHYSICIAN: Kevon Mackey DO REASON FOR VISIT: Srinath Pepe is a 61 year old male who is scheduled for Procedure(s): REVISION JOINT TOTAL KNEE FEMORAL AND ENTIRE TIBIAL COMPONENT (Left) at the request of Dr. Rao Thomas for consultation. My final recommendation will be communicated back to the requesting physicianby way of shared medical record or letter. 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 Pt has history of left total knee replacement in 2016. He initially did very well. He now reports pain and instability. Above procedure recommended to manage symptoms. Procedure scheduled on 11/22/2022 at [facility]. REVIEW OF SYSTEMS: General: No weight loss, malaise or fevers. Neurological: Positive for: headaches (migraines - on Nurtec PRN). Negative for: seizures, TIA and strokes. Respiratory: No history of current cough or dyspnea, or pneumonia in the past 6 weeks. No history of respiratory/pulmonary symptoms or problems. Cardiovascular: Positive for: hypertension Negative for: arrhythmia, atrial fibrillation, CHF, DVT/PE, hyperlipidemia, recent [place] and murmur/valvular heart disease. GI: +Splenomegaly Positive for: GERD and liver disease (ETOH cirrhosis - follows with outside GI Q 6 months, Dr. Frye) Negative for: irritable bowel syndrome, inflammatory bowel disease and ETOH >2 drinks/day. : +H/o prostate cancer - s/p prostatectomy 04/2021 Negative for: dysuria, hematuria and renal failure. Endocrine: No history of diabetes. Has not taken steroids within the past 30 days. No history of endocrinological symptoms or problems. Hematology: +Leukopenia - follows with heme/onc at [place] annually, Dr. Asencio, last visit 06/09/2022 Positive for: thrombocytopenia. Negative for: anemia, factor V Leiden and chronic anti-coagulation/platelet meds. Oncology: +H/o prostate cancer Psych: No history of psychiatric symptoms or problems. Musculoskeletal: See HPI. Skin: Negative for lesions, rash and itching. PAST MEDICAL HISTORY Diagnosis Date Cirrhosis, alcoholic (HCC) GERD (gastroesophageal reflux disease) History of prostate cancer 2020 HTN (hypertension) PAST SURGICAL HISTORY Procedure Laterality Date ARTHROSCOPY KNEE DIAGNOSTIC W/WO SYNOVIAL BX SPX Arthroscopy, knee, left COLONOSCOPY EGD LAPAROSCOPY SURG CHOLECYSTECTOMY Cholecystectomy, lap PAST SURGICAL HISTORY OF 04/2021 prostatectomy REMOVE TONSILS/ADENOIDS,<11 Y/O RPR 1ST INGUN HRNA AGE 4 YRS/> REDUCIBLE Hernia repair, inguinal, right RPR 1ST INGUN HRNA AGE 5 YRS/> REDUCIBLE Hernia repair, inguinal, left FAMILY HISTORY Problem Relation Age of Onset None Mother Heart Father Cancer Brother Liver Anesthesia Problems No Family History Social History Tobacco Use Smoking status: Never Smokeless tobacco: Never Vaping Use Vaping Use: Never used Substance Use Topics Alcohol use: No Comment: former ETOH use. Drug use: No Prior to Admission medications as of 11/06/22 0901 Medication Sig Last Dose Taking cholecalciferol, vitamin D3, (VITAMIN D3 ORAL) Take by mouth. Taking Yes rimegepant sulfate (NURTEC ODT ORAL) Take by mouth. Taking Yes Coenzyme Q10 400 mg cap Take by mouth. Taking Yes spironolactone (ALDACTONE) 25 mg tablet Take 25 mg by mouth once daily. Taking Yes valsartan (DIOVAN) 160 mg tablet Take 160 mg by mouth once daily. Taking Yes SUMAtriptan (IMITREX) 100 mg tablet Take 100 mg by mouth as needed. Taking Yes verapamil ER 180 mg 24 hr capsule Take 180 mg by mouth twice daily. Taking Yes VITAMIN B COMPLEX ORAL Take 1 tablet by mouth once daily. Taking Yes multivitamin tablet Take one(1) tablet daily. Taking Yes omeprazole(PRILOSEC 20 MG CAP) Take one(1) capsule daily. Yes mupirocin (BACTROBAN) 2 % ointment Apply 0.5 inch with cotton swab (Q-tip) to each nostril in the morning and evening for 5 days prior to and including day of surgery. No medication comments found. ALLERGIES Allergen Reactions Oxycodone Cough Tylenol [Acetaminop* Other: See Comments Cannot take secondary to liver disease Prozac [Fluoxetine * Rash Doxazosin Other: See Comments Dizziness, lightheadedness, low BP Sertraline Rash Objective PHYSICAL EXAM: General: alert and oriented and healthy appearance. Pertinent negatives noted - not distressed. Skin: normal color, no rash or lesions. HEENT: EOM intact and pupils equal round. Pertinent negatives noted - no carotid bruit. Cardiovascular: regular rate and rhythm, normal S1 and S2, no rub, murmurs, or gallop. Pulse characterized as regular.No radial pulse abnormalities. Respiratory: normal breath sounds, no wheezes or crackles. Abdomen: Pertinent negatives noted - not distended. Extremities: no deformity, no edema or tenderness, no joint swelling or clubbing. Neurological: normal cognition and motor skills. Gait normal. No weakness or sensory deficit. PAIN ASSESSMENT: Pain Pain Level: 0 Pain Location: Knee-Left VITALS: BP 124/76 Pulse 64 Temp (Src) 97.6 (Temporal) Resp 14 Ht 6' 4 (1.93m) Wt 236 lb (107.0kg) SpO2 97% BMI 28.74 kg/(m^2). Diagnostic tests reviewed for today's visit: Lab Value Units Date High Low HB No results within date range. HCT No results within date range. WBC No results within date range. PLT No results within date range. NA No results within date range. K No results within date range. GLUC No results within date range. BUN No results within date range. CREAT No results within date range. PTSEC No results within date range. INR No results within date range. APTT No results within date range. ALT No results within date range. AST No results within date range. TBILI No results within date range. TSH No results within date range. Lab Value Units Date High Low HCGQT No results within date range. UHCG No results within date range. HCG, BODY* No results within date range. Lab Value Units Date High Low ABORHD No results within date range. ABSCREEN No results within date range. Hemoglobin A1C (%) Date Value 06/28/2016 5.5 Recent Results (from the past 8760 hour(s)) ECG COMPLETE Collection Time: 11/06/22 8:55 AM Result Value Ventricular Rate 64 Atrial Rate 64 P-R Interval 198 QRS Duration 90 QT Interval 430 QTC Calculation (Bazett) 443 Calculated P [place] 49 Calculated R [place] -23 Calculated T [place] 25 Impression NORMAL SINUS RHYTHM NORMAL ECG No results found for this or any previous visit (from the past 08508 hour(s)). Assessment Patient has the following medical conditions which may affect hetal-operative course: Migraine without aura and without status migrainosus, not intractable Assessment: Stable, reports ~1 migraine per month, on Nurtec PRN. HTN (hypertension) Assessment: Stable, on RX. BP today 124/76. GERD (gastroesophageal reflux disease) Assessment: Stable, sx managed on omeprazole. Splenomegaly Assessment: Chronic, monitored by outside GI, Dr. Frye. Alcoholic cirrhosis of liver without ascites (HCC) Assessment: Stable, follows with outside GI Q 6 months, Dr. Frye. Pt reports that he has upcomingappointment prior to surgery. Denies hx of ascites or EV bandings. Pt continues to abstain from ETOH. Leukopenia Assessment: CBC pending. Pt follows with heme/onc at [place] annually, Dr. Asencio, last visit06/09/22. Thrombocytopenia (HCC) Assessment: 2/2 ETOH cirrhosis. CBC pending. Monitored by outside heme/onc. History of prostate cancer Assessment: S/p prostatectomy 04/2021, denies chemo or XRT. Bowers Activity Status Index: METS: Climb a flight of stairs or walk up a hill (5.50 METs) DASI Score: 5.5 Patient denies any chest pain or undue shortness of breath with the above physical activity. Clinical Frailty Scale: 3. Well, with treated comorbid disease STOP-Bang Score: Has or is being treated for high blood pressure Patient over 50 years old Male patient Denies snoring loudly Denies feeling tired, fatigued, or sleepy during the daytime Has not been observed to stop breathing or choking/gasping during sleep BMI less than or equal to 35 kg/m^2 Does not have a large neck STOP-Bang Score: 3 [id number] Score: Hypertension history: Yes [id number] Score: 1 ASA Class: 3 ANESTHESIA FINDINGS: Intubation History: No history of difficult intubation. No abnormal airway history Significant Anesthesia Considerations: none Airway History: No history of difficult airway No abnormal airway history I - PHYSICAL EVALUATION AIRWAY Patient intubated: No. Tracheostomy tube not present Mallampati: III. TM distance: >3 FB. Neck ROM: full ROM without neurological symptoms. Mouth opening: adequate. Short neck: no. Thick neck: no Webster present: no Lip Bite Test: I Microretrognathia/Micronagthia/Recessed Chin: No DENTAL Additional comments: +Crowns. II - ANESTHESIA PLAN ASA Score: 3 Anesthetic Plan: other Anesthetic plan additional comments: *PACC/TCI - anesthesia choice. Beta Chaitanya Monitoring Plan Post Procedure Analgesic Plan Prepared for Surgery: optimally prepared for surgery, pending [see comment]. LABS and ECG. CONSULTS: Patient does not require consults for optimization at this time Planned Anesthetic: other anesthesia choice The Following Tests/Procedures Have Been Initiated: Orders Placed This Encounter CBC with Differential Standing Status: Future Standing Expiration Date: 01/06/2023 CMP Standing Status: Future Standing Expiration Date: 01/06/2023 Type and Screen, 30 day Standing Status: Future Standing Expiration Date: 01/06/2023 mupirocin (BACTROBAN) 2 % ointment Sig: Apply 0.5 inch with cotton swab (Q-tip) to each nostril in the morning and evening for 5 days prior to and including day of surgery. Dispense: 22 g Refill: 0 ECG COMPLETE Standing Status: Future Standing Expiration Date: 11/07/2023 ECG COMPLETE Order Comments: Ordered by an unspecified provider Instructions Given to Patient: Instructions located in the after visit summary. Patient given verbal and written preop instructions and voices comprehension and compliance. SIGNATURE: Loulou Taylor PA-C PATIENT NAME: Srinath Pepe DATE: November 03, 2022 TIME: 12:03 PM PAGER/CONTACT #: documented in this encounterTr[facility]23 History of Present illness Narrative* Rao Thomas MD - 10/10/2022 1:28 PM EDT Orthopaedic Office Note: October 10, 2022 1:28 PM Srinath Pepe 61 year old History: This is a very nice 61-year-old man who had a left total knee replacement done by my partner Dr. Ge Maguire in 2016. He initially did very well. 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 Inflammatory markers and aspiration have been negative for infection. He is quite active. He did have a fall about 2 years ago. Reports pain and instability. Subjective: See above Updated ROS: No changes Updated Exam: Left lower Extremity Well-healed incision Mild tenderness palpation medial lateral joint line Slight varus valgus laxity Range of motion is outstanding 0 to 115 degrees Moderate effusion Updated Imaging: Aseptic loosening of the total knee replacement Assessment and Plan: I had a long discussion with Vin about his knee today. I agree that he has aseptic loosening. Infection has been ruled out. Revision surgery has been planned. I would use cones augments and possibly stems. I reviewed the more significant nature of revision surgery at length as well as recovery rehab ilitation increased risk of complication expected outcomes. He understands he is well and wishes toproceed and informed consent was signed. We will plan to do this here at [facility]. I spent a total of approximately 25 minutes on the date of the service which included preparing to see the patient, [id number] patient care, completing clinical documentation, obtaining and/or reviewing separately obtained history, performing a medically appropriate examination, counseling and educating the patient/family/caregiver, ordering medications, tests, or procedures, independently interpreting results (not separately reported), communicating results to the patient/family/caregiver, and care coordination (not separately reported). Rao Thomas MD Orthopaedic Surgery documented in this encounterTr[facility]05-03-2023 Miscellaneous Notes* Telephone Encounter - Tiffanie Stephenson - 10/04/2022 9:25 AM EDT Patient accepted sooner appointment. * Telephone Encounter - Carrie Altamirano [facility] - 10/04/2022 8:45 AM EDT You can offer him 5-9-2023 or 10-12-2022 at 12:30 pm either day. Thanks. Carrie * Telephone Encounter - Tiffanie Stephenson - 10/04/2022 7:24 AM EDT Definitely! Team--can we please get in sooner? Thank you! Daniel Please advise where we could get this patient in sooner with . Thanks! documented in this encounterTrinity [facility] System05-01-2023 History of Present illness Narrative* Ge Maguire MD, PhD - 10/02/2022 2:26 PM EDT Patient returns to see me today for his left knee. Briefly, he underwent successful left total kneereplacement by me in 2015 utilizing a Deven persona total knee. He did very well till last year when he showed up with a spontaneous effusion after cutting the lawn. Full work-up including C-reactive protein, sedimentation rate, knee aspiration with synovial fluid analysis sent for synovasure analysis and a bone scan were undertaken. All evaluations were negative for infection and the aspirationwas mostly bloody. Bone scan suggested loosening of all femoral and tibial component. The patient did well until yesterday when out cutting down some trees and working in the backyard he had a spontaneous effusion again yesterday. He is here today utilizing a cane. Examination last year suggested lateral laxity on exam. ROS Musculoskeletal: See history of present illness. Neurological: Denies numbness and tingling in upper or lower extremities Social History Tobacco Use Smoking status: Never Smokeless tobacco: Never Substance Use Topics Alcohol use: No Comment: former ETOH use. Drug use: No Current Outpatient Medications Medication Sig Coenzyme Q10 400 mg cap Take by mouth. spironolactone (ALDACTONE) 25 mg tablet Take 25 mg by mouth once daily. valsartan (DIOVAN) 160 mg tablet Take 160 mg by mouth once daily. multivitamin tablet Take one(1) tablet daily. SUMAtriptan (IMITREX) 100 mg tablet Take 100 mg by mouth as needed. (Patient not taking: Reported on 10/02/2022) propranolol (INDERAL) 60 mg tablet Take 60 mg by mouth three times daily. topiramate (TOPAMAX) 100 mg tablet Take 1 tablet by mouth daily at bedtime. (Patient not taking: Reported on 10/02/2022) rizatriptan (MAXALT) 10 mg tablet Take 1 po at ONSET OF HEADACHE. MAY REPEAT once AFTER 2 HOURS. DONOT use on more than 2 days per given week. melatonin 10 mg cap Take by mouth once daily. docosahexanoic acid/epa (FISH OIL ORAL) Take by mouth. (Patient not taking: Reported on 10/02/2022) verapamil ER 180 mg 24 hr capsule MILK THISTLE ORAL Take 250 mg by mouth once daily. VITAMIN B COMPLEX ORAL Take 1 tablet by mouth once daily. HYDROCHLOROTHIAZIDE ORAL Take 12.5 mg by mouth once daily. doxazosin (CARDURA) 4 mg ORAL Tab Take one(1) tablet daily at bedtime (Patient not taking: Reportedon 01/25/2022) omeprazole(PRILOSEC 20 MG CAP) Take one(1) capsule daily. No current facility-administered medications for this visit. Examination: 61-year-old male no acute distress. Alert and oriented x3. 6 foot 4 inches tall 245 pounds. Moderate effusion is noted. No warmth or redness. Full extension flexion to 110 degrees in a seated position. Increased lateral laxity with a firm endpoint. Radiologic review: X-rays ordered today and to my interpretation suggest some radiolucency on the marginal medial aspect of the tibia in addition to what appears to be some posterior and flange radiolucency on the femur. Impression: Lateral laxity with component loosening. The patient states he is ready to have this addressed in a more permanent fashion. The lateral laxity especially when working on uneven ground high activities is giving him a problem causing effusion. I like to have him see my colleague Dr. Mark for surgical consultation for revision. At the conclusion of the office visit, the patient was asked if they had any questions regarding the diagnosis or care. Also, ample time was provided for the patient to ask any questions regarding the diagnosis therefore plan of care. All the patient's questions if asked were answered to their satisfaction. This note was partially generated using [employer] voice recognition system and as such may contain grammatical or word errors Ge Maguire MD, PhD documented in this encounterTrinity Health System05-01-2023 History of Present illness Narrative* Courtney Arndt RT(R) - 10/02/2022 2:00 PM EDT Radiology Service Progress Note PATIENT NAME: Srinath Pepe DATE OF SERVICE: October 02, 2022 TIME: 1:50 PM PATIENT IDENTITY VERIFICATION COMPLETED USING TWO (2) IDENTIFIERS: Name and Date of confirmedby patient verbally. FALL SCREENING: Has the patient had 2 falls in the last year or 1 fall with injury or currently using an Ambulatory Assistive Device (Walker, Cane, Wheelchair, Crutches, etc.)? No PATIENT GENDER DATA: Male PATIENT RELEVANT IMPLANT DATA REVIEWED: Not Applicable RADIOLOGY DEPARTMENT: General X-ray: Exam(s) Completed: Lower Extremity X- Ray(s): Knee, AP / Lat / Merchant Left PERIPHERAL IV DATA: Not applicable SIGNED BY: RT Saida(R) October 02, 2022 1:50 PM documented in this encounterTrinity Health System09-23-2022 Evaluation + Plan note Extracted from: Title:Clinical Document Author:EDILBERTO FRYE Date:02/24/22 [place] ADMISSION HISTORY AN D PHYSICIAL CHIEF COMPLAINT: HISTORY OF PRESENT ILLNESS: REVIEW OF SYSTEMS: ACTIVE PROBLEMS: (26) Bronchitis (75778001) Elevated PSA (0446802242) GERD without esophagitis (6508862328) Hallux rigidus (421560218) Hypertension (89496810) Liver disease due to alcohol ([id number]) Migraines (40400677) Muscle spasm of back ([id number]) Need for hepatitis C screening test (509379978) Need for influenza vaccination (240569310) Need for vaccination (1789182562) Palpitations (541773907) Preop examination (087289289) Prostate cancer -- [facility] 04/2021 PSA >10 at diagnosis now <0.05 (6816759572) Recovering alcoholic in remission ([id number]) Screening for colon cancer (390060660) Screening for diabetes mellitus (645133809) Screening for ischemic heart disease (171050100) Screening for prostate cancer (481381767) Suspected sleep apnea (84989477) Thrombocytopenia (7000805892) Tinnitus (235840294) Urinary incontinence, functional (590562463) Well adult exam (516478066) Alcoholic cirrhosis of liver Active (3146168635) History of alcohol abuse Active (0880287549) MEDICATIONS: Active Inpt Meds: None Active PRN Meds: None One Time Meds: None Active IV Meds: Lactated Ringers Infusion 1,000 mL (LR 1,000 mL) Start: 02/24/22 8:20:00 EDT, Rate: 50 mL/hr, 02/24/22 8:20:00 EDT ALLERGIES: (3) oxyCODONE PROzac sertraline FAMILY HISTORY: SOCIAL HISTORY: PHYSICAL EXAM: VITALS: IzizvdCwmsVRXejiyLGSiR3PKD3UmxjXq(kg) 02/24 08:1536.0183/741993273VY96/19058.1 24 Hr Tmax: 36.0 at 02/24 08:15 36 Hr Tmax: 36.0 at 02/24 08:15 Vital Signs are the last 5 in the past 48 hours. Weights display the last 5 within 7 days. Initial Wt: 02/24 109.1 kg 240 lb Current Wt: 02/24 109.1 kg 240 lb GENERAL: HEENT: CARDIOVASCULAR: RESPIRATORY: ABDOMEN: EXREMETIES: NEUROLOGICAL: PSYCHIATRIC: LABS: No 36hr Lab Data DIAGNOSTICS: IMPRESSION: PLAN: History and Physical Update I have examined the patient; reviewed the H&P and there are no changes to the H&P unless noted below. Future Appointments Appointment Date:03/09/2022 09:30:00 AM Scheduled Provider:MARK SMITH DO Location:[facility] Appointment Type:PC OV Appointment Date:06/09/2022 01:00:00 PM Scheduled Provider:LENARD ASENCIO MD Location:[facility] Appointment Type:[facility] OV Follow Up Appointment Date:07/04/2022 09:30:00 AM Scheduled Provider:MARK SMITH DO Location:[facility] Appointment Type:PC OV Appointment Date:07/24/2022 11:20:00 AM Scheduled Provider:ANA VILLA MD Location:UROLOGY Appointment Type:URO OV Future Scheduled Tests Laboratory* Basic Metabolic Panel 07/19/22 * Prostate Specific Antigen 07/19/22 * Complete Blood Count 04/29/21 [facility] 09-23-2022 Hospital Discharge instructions Patient Education 02/24/2022 09:51:37 Moderate Conscious Sedation, Adult, Care After Moderate Conscious Sedation, Adult, Care After These instructions provide you with information about caring for yourself after your procedure. Your health care provider may also give you more specific instructions. Your treatment has been plannedaccording to current medical practices, but problems sometimes occur. Call your health care provider if you have any problems or questions after your procedure. What can I expect after the procedure? After your procedure, it is common: To feel sleepy for several hours. To feel clumsy and have poor balance for several hours. To have poor judgment for several hours. To vomit if you eat too soon. Follow these instructions at home: For at least 24 hours after the procedure: Do not: ?Participate in activities where you could fall or become injured. ?Drive. ?Use heavy machinery. ?Drink alcohol. ?Take sleeping pills or medicines that cause drowsiness. ?Make important decisions or sign legal documents. ?Take care of children on your own. Rest. Eating and drinking Follow the diet recommended by your health care provider. If you vomit: ?Drink water, juice, or soup when you can drink without vomiting. ?Make sure you have little or no nausea before eating solid foods. General instructions Have a responsible adult stay with you until you are awake and alert. Take byby-bug-xkqhvhb and prescription medicines only as told by your health care provider. If you smoke, do not smoke without supervision. Keep all follow-up visits as told by your health care provider. This is important. Contact a health care provider if: You keep feeling nauseous or you keep vomiting. You feel light-headed. You develop a rash. You have a fever. Get help right away if: You have trouble breathing. This information is not intended to replace advice given to you by your health care provider. Make sure you discuss any questions you have with your health care provider. Document Released: 03/11/2014 Document Revised: 05/03/2018 Document Reviewed: 09/09/2016 [employer] ([employer]) Patient Education 2020 [employer] 02/24/2022 09:51:34 Esophagogastroduodenoscopy, Care After (84267) Esophagogastroduodenoscopy, Care After Refer to this sheet in the next few weeks. These instructions provide you with information about caring for yourself after your procedure. Your health care provider may also give you more specific instructions. Your treatment has been planned according to current medical practices, but problems sometimes occur. Call your health care provider if you have any problems or questions after your procedure. What can I expect after the procedure? After the procedure, it is common to have: A sore throat. Nausea. Bloating. Dizziness. Fatigue. Follow these instructions at home: Do not eat or drink anything until the numbing medicine (local anesthetic) has worn off and your gag reflex has returned. You will know that the local anesthetic has worn off when you can swallow comfortably. Do not drive for 24 hours if you received a medicine to help you relax (sedative). If your health care provider took a tissue sample for testing during the procedure, make sure to get your test results. This is your responsibility. Ask your health care provider or the department performing the test when your results will be ready. Keep all follow-up visits as told by your health care provider. This is important. Contact a health care provider if: You cannot stop coughing. You are not urinating. You are urinating less than usual. Get help right away if: You have trouble swallowing. You cannot eat or drink. You have throat or chest pain that gets worse. You are dizzy or light-headed. You faint. You have nausea or vomiting. You have chills. You have a fever. You have severe abdominal pain. You have black, tarry, or bloody stools. This information is not intended to replace advice given to you by your health care provider. Make sure you discuss any questions you have with your health care provider. Document Released: 05/07/2013 Document Revised: 10/26/2016 Document Reviewed: 04/13/2016 [employer] ([employer]) Interactive Patient Education 2019 [employer]. 02/24/2022 09:51:28 Colonoscopy, Adult Colonoscopy, Adult A colonoscopy is an exam to look at the entire large intestine. During the exam, a lubricated, flexible tube that has a camera on the end of it is inserted into the anus and then passed into the rectum, colon, and other parts of the large intestine. You may have a colonoscopy as a part of normal colorectal screening or if you have certain symptoms, such as: Lack of red blood cells (anemia). Diarrhea that does not go away. Abdominal pain. Blood in your stool (feces). A colonoscopy can help screen for and diagnose medical problems, including: Tumors. Polyps. Inflammation. Areas of bleeding. Tell a health care provider about: Any allergies you have. All medicines you are taking, including vitamins, herbs, eye drops, creams, and mzcq-tdl-bludwrp medicines. Any problems you or family members have had with anesthetic medicines. Any blood disorders you have. Any surgeries you have had. Any medical conditions you have. Any problems you have had passing stool. What are the risks? Generally, this is a safe procedure. However, problems may occur, including: Bleeding. A tear in the intestine. A reaction to medicines given during the exam. Infection (rare). What happens before the procedure? Eating and drinking restrictions Follow instructions from your health care provider about eating and drinking, which may include: A few days before the procedure follow a low-fiber diet. Avoid nuts, seeds, dried fruit, raw fruits, and vegetables. 1 3 days before the procedure follow a clear liquid diet. Drink only clear liquids, such as clear broth or bouillon, black coffee or tea, clear juice, clear soft drinks or sports drinks, gelatin dessert, and popsicles. Avoid any liquids that contain red or purple dye. On the day of the procedure do not eat or drink anything starting 2 hours before the procedure, or within the time period that your health care provider recommends. Up to 2 hours before the procedure, you may continue to drink clear liquids, such as water or clear fruit juice. Bowel prep If you were prescribed an oral bowel prep to clean out your colon: Take it as told by your health care provider. Starting the day before your procedure, you will needto drink a large amount of medicated liquid. The liquid will cause you to have multiple loose stools until your stool is almost clear or light green. If your skin or anus gets irritated from diarrhea, you may use these to relieve the irritation: ?Medicated wipes, such as adult wet wipes with aloe and vitamin E. ?A skin-soothing product like petroleum jelly. If you vomit while drinking the bowel prep, take a break for up to 60 minutes and then begin the bowel prep again. If vomiting continues and you cannot take the bowel prep without vomiting, call yourhealth care provider. To clean out your colon, you may also be given: ?Laxative medicines. ?Instructions about how to use an enema. General instructions Ask your health care provider about: ?Changing or stopping your regular medicines or supplements. This is especially important if you are taking iron supplements, diabetes medicines, or blood thinners. ?Taking medicines such as aspirin and ibuprofen. These medicines can thin your blood. Do not take these medicines before the procedure if your health care provider tells you not to. Plan to have someone take you home from the hospital or clinic. What happens during the procedure? An IV may be inserted into one of your veins. You will be given medicine to help you relax (sedative). To reduce your risk of infection: ?Your health care team will wash or sanitize their hands. ?Your anal area will be washed with soap. You will be asked to lie on your side with your knees bent. Your health care provider will lubricate a long, thin, flexible tube. The tube will have a camera and a light on the end. The tube will be inserted into your anus. The tube will be gently eased through your rectum and colon. Air will be delivered into your colon to keep it open. You may feel some pressure or cramping. The camera will be used to take images during the procedure. A small tissue sample may be removed to be examined under a microscope (biopsy). If small polyps are found, your health care provider may remove them and have them checked for cancer cells. When the exam is done, the tube will be removed. The procedure may vary among health care providers and hospitals. What happens after the procedure? Your blood pressure, heart rate, breathing rate, and blood oxygen level will be monitored until themedicines you were given have worn off. Do not drive for 24 hours after the exam. You may have a small amount of blood in your stool. You may pass gas and have mild abdominal cramping or bloating due to the air that was used to inflate your colon during the exam. It is up to you to get the results of your procedure. Ask your health care provider, or the department performing the procedure, when your results will be ready. Summary A colonoscopy is an exam to look at the entire large intestine. During a colonoscopy, a lubricated, flexible tube with a camera on the end of it is inserted into the anus and then passed into the colon and other parts of the large intestine. Follow instructions from your health care provider about eating and drinking before the procedure. If you were prescribed an oral bowel prep to clean out your colon, take it as told by your health care provider. After your procedure, your blood pressure, heart rate, breathing rate, and blood oxygen level will be monitored until the medicines you were given have worn off. This information is not intended to replace advice given to you by your health care provider. Make sure you discuss any questions you have with your health care provider. Document Released: 05/18/2001 Document Revised: 03/13/2018 Document Reviewed: 08/01/2016 [employer] ([employer] Patient Education 2020 [employer]. Follow Up Care 02/08/2022 14:18:14 With:EDILBERTO FRYE MD Address: [address] [phone] When: Unknown Comments:Results of biopsy pathology will be called to you. [facility] 09-23-2022 Summary of episode note Discharge Instructions Thank you for allowing [place] to assist you with your healthcare needs. The following is importantdischarge information regarding your hospital visit. Your Care Team MARK SMITH DO What to do next Scheduled Follow-Up Appointments Appointment Type When With Where Contact InformationPC OV 03/09/2022 09:30 AM MARK JACOBO [address] [phone] HEM ONC OV Follow Up 06/09/2022 01:00 PM EST VENNLENARD FRANCOIS MD Hematology and Oncology PC OV 07/04/2022 09:30 AM MARK RAO [address] [phone] URO OV 07/24/2022 11:20 AM ANA FALLON MD Urology Follow Up Appointments Follow Up with EDILBERTO FRYE MD When Why: Results of biopsy pathology will be called to you. Where: [address] [place] [phone] The Following Activity and Diet Have Been Ordered for You No qualifying data available. No qualifying data available. The Following Equipment Has Been Ordered for You No qualifying data available. The Following Treatments Have Been Ordered for You Discharge Labs No qualifying data available. Discharge Radiology No qualifying data available. Other Therapies No qualifying data available. Post Acute Orders No qualifying data available. Someone Will Contact You Regarding These Home Health Referrals No home referrals have been ordered for you. No one will call you. Allergies PROzac (rash) oxyCODONE (Hiccups) sertraline (Rash) Medications Please ask your primary doctor or pharmacist before taking any other medication not listed, including over the counter drugs, herbal medications, vitamins and or supplements as they may interact withyour home medications. What How Much When Why Instructions Last Dose Unchanged ascorbic acid (Vitamin C) Once a day Unchanged magnesium oxide (magnesium oxide 400 mg oral tablet) 1 tab(s) by mouth Daily at bedtime Unchanged multivitamin (Vitamin B Complex oral capsule) 1 cap by mouth Every day Unchanged naproxen (naproxen 500 mg oral tablet) 1 tab(s) by mouth Two (2) times a day as needed for Pain Unchanged omeprazole (omeprazole 40 mg oral delayed release capsule) 1 cap by mouth Once a day before a meal GERD without esophagitis Unchanged rimegepant (Nurtec ODT 75 mg oral tablet, disintegrating) 1 tab(s) by mouth Once as needed for as needed for migraine headache Unchanged tadalafil (Cialis 20 mg oral tablet) 1 tab(s) by mouth Once a day Prostate cancer -- RARP 04/2021 PSA >10 Unchanged ubiquinone (Co-Q10) 400 Milligram by mouth Every day Unchanged valsartan (valsartan 320 mg oral tablet) 1 tab(s) by mouth Once a day Hypertension increased dose Unchanged verapamil (verapamil 180 mg/ 24 hours oral capsule, extended release) 1 cap by mouth Once a day Hypertension TAKE ONE CAPSULE BY MOUTH EVERY DAY Please take this list to your next doctor s visit. Bring all medications you take, including over the counter medications, herbals and other supplements with you to your doctor s visit. Patients and families are reminded to discard old lists and to update any records with all medication providers or retail pharmacies. Education Materials Moderate Conscious Sedation, Adult, Care After These instructions provide you with information about caring for yourself after your procedure. Your health care provider may also give you more specific instructions. Your treatment has been plannedaccording to current medical practices, but problems sometimes occur. Call your health care provider if you have any problems or questions after your procedure. What can I expect after the procedure? After your procedure, it is common: To feel sleepy for several hours. To feel clumsy and have poor balance for several hours. To have poor judgment for several hours. To vomit if you eat too soon. Follow these instructions at home: For at least 24 hours after the procedure: Do not: ? Participate in activities where you could fall or become injured. ? Drive. ? Use heavy machinery. ? Drink alcohol. ? Take sleeping pills or medicines that cause drowsiness. ? Make important decisions or sign legal documents. ? Take care of children on your own. Rest. Eating and drinking Follow the diet recommended by your health care provider. If you vomit: ? Drink water, juice, or soup when you can drink without vomiting. ? Make sure you have little or no nausea before eating solid foods. General instructions Have a responsible adult stay with you until you are awake and alert. Take ptxb-qeb-icbbfql and prescription medicines only as told by your health care provider. If you smoke, do not smoke without supervision. Keep all follow-up visits as told by your health care provider. This is important. Contact a health care provider if: You keep feeling nauseous or you keep vomiting. You feel light-headed. You develop a rash. You have a fever. Get help right away if: You have trouble breathing. This information is not intended to replace advice given to you by your health care provider. Make sure you discuss any questions you have with your health care provider. Document Released: 03/11/2014 Document Revised: 05/03/2018 Document Reviewed: 09/09/2016 [employer] ([employer]) Patient Education 2020 [employer]. Esophagogastroduodenoscopy, Care After Refer to this sheet in the next few weeks. These instructions provide you with information about caring for yourself after your procedure. Your health care provider may also give you more specific instructions. Your treatment has been planned according to current medical practices, but problems sometimes occur. Call your health care provider if you have any problems or questions after your procedure. What can I expect after the procedure? After the procedure, it is common to have: A sore throat. Nausea. Bloating. Dizziness. Fatigue. Follow these instructions at home: Do not eat or drink anything until the numbing medicine (local anesthetic) has worn off and your gag reflex has returned. You will know that the local anesthetic has worn off when you can swallow comfortably. Do not drive for 24 hours if you received a medicine to help you relax (sedative). If your health care provider took a tissue sample for testing during the procedure, make sure to get your test results. This is your responsibility. Ask your health care provider or the department performing the test when your results will be ready. Keep all follow-up visits as told by your health care provider. This is important. Contact a health care provider if: You cannot stop coughing. You are not urinating. You are urinating less than usual. Get help right away if: You have trouble swallowing. You cannot eat or drink. You have throat or chest pain that gets worse. You are dizzy or light-headed. You faint. You have nausea or vomiting. You have chills. You have a fever. You have severe abdominal pain. You have black, tarry, or bloody stools. This information is not intended to replace advice given to you by your health care provider. Make sure you discuss any questions you have with your health care provider. Document Released: 05/07/2013 Document Revised: 10/26/2016 Document Reviewed: 04/13/2016 [employer] [employer] ([employer]) Interactive Patient Education 2019 [employer]. Colonoscopy, Adult A colonoscopy is an exam to look at the entire large intestine. During the exam, a lubricated, flexible tube that has a camera on the end of it is inserted into the anus and then passed into the rectum, colon, and other parts of the large intestine. You may have a colonoscopy as a part of normal colorectal screening or if you have certain symptoms, such as: Lack of red blood cells (anemia). Diarrhea that does not go away. Abdominal pain. Blood in your stool (feces). A colonoscopy can help screen for and diagnose medical problems, including: Tumors. Polyps. Inflammation. Areas of bleeding. Tell a health care provider about: Any allergies you have. All medicines you are taking, including vitamins, herbs, eye drops, creams, and hwai-clw-yowudmo medicines. Any problems you or family members have had with anesthetic medicines. Any blood disorders you have. Any surgeries you have had. Any medical conditions you have. Any problems you have had passing stool. What are the risks? Generally, this is a safe procedure. However, problems may occur, including: Bleeding. A tear in the intestine. A reaction to medicines given during the exam. Infection (rare). What happens before the procedure? Eating and drinking restrictions Follow instructions from your health care provider about eating and drinking, which may include: A few days before the procedure follow a low-fiber diet. Avoid nuts, seeds, dried fruit, raw fruits, and vegetables. 1 3 days before the procedure follow a clear liquid diet. Drink only clear liquids, such as clear broth or bouillon, black coffee or tea, clear juice, clear soft drinks or sports drinks, gelatin dessert, and popsicles. Avoid any liquids that contain red or purple dye. On the day of the procedure do not eat or drink anything starting 2 hours before the procedure, or within the time period that your health care provider recommends. Up to 2 hours before the procedure, you may continue to drink clear liquids, such as water or clear fruit juice. Bowel prep If you were prescribed an oral bowel prep to clean out your colon: Take it as told by your health care provider. Starting the day before your procedure, you will needto drink a large amount of medicated liquid. The liquid will cause you to have multiple loose stools until your stool is almost clear or light green. If your skin or anus gets irritated from diarrhea, you may use these to relieve the irritation: ? Medicated wipes, such as adult wet wipes with aloe and vitamin E. ? A skin-soothing product like petroleum jelly. If you vomit while drinking the bowel prep, take a break for up to 60 minutes and then begin the bowel prep again. If vomiting continues and you cannot take the bowel prep without vomiting, call yourhealth care provider. To clean out your colon, you may also be given: ? Laxative medicines. ? Instructions about how to use an enema. General instructions Ask your health care provider about: ? Changing or stopping your regular medicines or supplements. This is especially important if you aretaking iron supplements, diabetes medicines, or blood thinners. ? Taking medicines such as aspirin and ibuprofen. These medicines can thin your blood. Do not take these medicines before the procedure if your health care provider tells you not to. Plan to have someone take you home from the hospital or clinic. What happens during the procedure? An IV may be inserted into one of your veins. You will be given medicine to help you relax (sedative). To reduce your risk of infection: ? Your health care team will wash or sanitize their hands. ? Your anal area will be washed with soap. You will be asked to lie on your side with your knees bent. Your health care provider will lubricate a long, thin, flexible tube. The tube will have a camera and a light on the end. The tube will be inserted into your anus. The tube will be gently eased through your rectum and colon. Air will be delivered into your colon to keep it open. You may feel some pressure or cramping. The camera will be used to take images during the procedure. A small tissue sample may be removed to be examined under a microscope (biopsy). If small polyps are found, your health care provider may remove them and have them checked for cancer cells. When the exam is done, the tube will be removed. The procedure may vary among health care providers and hospitals. What happens after the procedure? Your blood pressure, heart rate, breathing rate, and blood oxygen level will be monitored until themedicines you were given have worn off. Do not drive for 24 hours after the exam. You may have a small amount of blood in your stool. You may pass gas and have mild abdominal cramping or bloating due to the air that was used to inflate your colon during the exam. It is up to you to get the results of your procedure. Ask your health care provider, or the department performing the procedure, when your results will be ready. Summary A colonoscopy is an exam to look at the entire large intestine. During a colonoscopy, a lubricated, flexible tube with a camera on the end of it is inserted into the anus and then passed into the colon and other parts of the large intestine. Follow instructions from your health care provider about eating and drinking before the procedure. If you were prescribed an oral bowel prep to clean out your colon, take it as told by your health care provider. After your procedure, your blood pressure, heart rate, breathing rate, and blood oxygen level will be monitored until the medicines you were given have worn off. This information is not intended to replace advice given to you by your health care provider. Make sure you discuss any questions you have with your health care provider. Document Released: 05/18/2001 Document Revised: 03/13/2018 Document Reviewed: 08/01/2016 [employer] Patient Education 2020 [employer]. Additional Information VACCINATE! IT SAVES LIVES! Members of the community who have not yet received the COVID-19 vaccine and would like to receive it can visit one of [facility] vaccine clinics. There are many vaccine clinic locations within the [facility]. For locations and available times, please visit [email or web address] It is important to note that some COVID mobile vaccine clinics are held outdoors and may be canceled in rainy or stormy conditions. To learn more about pediatric vaccinations (ages 5-11), we invite you to visit the [facility] webpage. [email or web address] [email or web address] learn more about the COVID-19 vaccine, we invite you to visit the [place] website for a list of frequently asked questions. [email or web address] [facility] Patient Portal Access Instructions: Stay connected with your healthcare team and access your personal medical information anytime with the [facility] Patient Portal.If you would like a full copy of your medical records, please contact the [facility] Medical Records Department, Sunday through Sunday between 8a.m. and 4:30p.m. Please follow the directions below to access the portal: 1.Access the email account you provided upon registration to the [facility].2.Look for an invitation email from [facility].3.Open the email and access the invitation link: Accept Invitation to [facility]4.Fill in the required loyd to create your account. Sign into [email or web address] with your username and password that you created in the above steps to stay up to date. You can then view a summary of results, a summary of your visits, and the ability to download your summaries to your computer or send the information securely to a physician. Remember that your healthcare information is confidential, so carefully consider who you will allow to register on the [facility] Patient Portal for access to your information. You can also access the [facility] Patient Portal on the [employer]. Simply click on Health Records under [place] and then click on the [employer] logo. HOW TO SAFELY DISPOSE OF PRESCRIPTION MEDICATIONS Please use one of the following methods to safely dispose of your unused medications. 1.Use a drug disposal kit: the drug disposal pouch allows you to safely discard your old and unuseddrugs. Ask your nurse to give you one when you are discharged.2.Visit a local take-back location: Many local pharmacies and police departments have programs that collect old and unwanted prescriptiondrugs. Call your local pharmacy or go to http://[employer].Xigen/9C0Mr4i to find one close to you.3.Make use of household items: Use cat litter or old coffee grounds to dispose medications if other options arenot available. Mix your drugs with these household products, seal them in an airtight container andthrow it into the garbage. Call [facility]: [phone] to be sure your drugs can be disposed of in this way. Some medicines may require a different approach.4.Never flush your medications down the toilet. IF YOU HAVE BEEN PRESCRIBED AN OPIOID FOR PAIN If you have been prescribed an opioid (such as hydrocodone, oxycodone or morphine), it is critical to understand the possible side effects and risks of opioid pain medications. Even when taken as directed, opioids can have several side effects including: Tolerance, meaning you might need to take more of a medication for the same pain relief. Nausea, vomiting and/or constipation. Sleepiness, dizziness, dry mouth, confusion, depression or itching. Physical dependence, meaning you have withdrawal symptoms when a medication is stopped, can develop within a few days. KNOW YOUR RESPONSIBILITIES It is important to know exactly how much and how often to take the opioid pain medications you are prescribed. Never take opioids in higher amounts or more often than prescribed. Do not combine opioids with alcohol or other drugs that cause drowsiness, such as benzodiazepines, also known as benzos, including diazepam and alprazolam, muscle relaxants or sleep aids. Never sell or share prescription opioids. This is illegal. Store opioids in a secure place and out of reach of others (including children, family, friends and visitors). The last page of this document has been signed and retained as a CHART COPY. Signatures Patient Education Materials Moderate Conscious Sedation, Adult, Care After Esophagogastroduodenoscopy, Care After (39407) Colonoscopy, Adult Medication Leaflets My discharge plan and instructions have been reviewed and explained to me and I,SRINATH PEPE Kishad my current condition and have read and understand these discharge instructions. I have received a written copy of the plan/instructions. If I have questions, I am aware that I should contact my doctor. Patient/Ap Operator Signature: Date/Time: Relationship to Patient: Witness Name/Signature: Date/Time: [facility]09-23-2022 Anesthesiology Consult note Patient: SRINATH PEPE Age: 61 years Sex: Male : 1960 Associated Diagnoses: None Author: GE ESCOBAR APRN-RETIREMENT SPECIALIST Assessment Postanesthesia assessment Vitals: Vital signs from flowsheet : Vital Signs 02/24/2022 9:40 EDT Heart Rate Monitored 68 bpm bpm Respiratory Rate 12 br/min br/min Systolic Blood Pressure NBP 137 mmHg mmHg Diastolic Blood Pressure NBP 95 mmHg mmHg 02/24/2022 9:35 EDT Heart Rate Monitored 67 bpm bpm Respiratory Rate 19 br/min br/min Systolic Blood Pressure NBP 167 mmHg mmHg Diastolic Blood Pressure NBP 110 mmHg mmHg 02/24/2022 9:30 EDT Heart Rate Monitored 58 bpm bpm Respiratory Rate 11 br/min br/min Systolic Blood Pressure NBP 185 mmHg mmHg Diastolic Blood Pressure NBP 102 mmHg mmHg 02/24/2022 9:25 EDT Heart Rate Monitored 53 bpm bpm Respiratory Rate 13 br/min br/min Systolic Blood Pressure NBP 183 mmHg mmHg Diastolic Blood Pressure NBP 102 mmHg mmHg 02/24/2022 9:23 EDT Systolic Blood Pressure NBP 176 mmHg mmHg Diastolic Blood Pressure NBP 122 mmHg mmHg 02/24/2022 8:15 EDT Temperature Temporal Artery 36.0 DegC Apical Heart Rate 59 bpm LOW Respiratory Rate 17 br/min Systolic BP Left Arm 183 mmHg >HHI Diastolic BP Left Arm 103 mmHg >HHI , Measurements from flowsheet . Mental status: alert & oriented x 4. Respiratory function: respirations are non-labored. Respiratory support: none. CV function: Normal rate. Cardiovascular support: none. Pain. Nausea status: see nursing documentation of medications. Postoperative hydration status: within normal limits. Digitally Signed by GE ESCOBAR on 02/24/2022 09:44 AM [facility]09-23-2022 Note [place] ADMISSION HISTORY AND PHYSICIAL CHIEF COMPLAINT: HISTORY OF PRESENT ILLNESS: REVIEW OF SYSTEMS: ACTIVE PROBLEMS: (26) Bronchitis (33397262) Elevated PSA (4896678344) GERD without esophagitis (9812123577) Hallux rigidus (558930360) Hypertension (39635733) Liver disease due to alcohol ([id number]) Migraines (68919110) Muscle spasm of back ([id number]) Need for hepatitis C screening test (828683933) Need for influenza vaccination (148246735) Need for vaccination (1093810274) Palpitations (424909493) Preop examination (134456291) Prostate cancer -- RARP 04/2021 PSA >10 at diagnosis now <0.05 (9052747698) Recovering alcoholic in remission ([id number]) Screening for colon cancer (919439563) Screening for diabetes mellitus (508019594) Screening for ischemic heart disease (386755213) Screening for prostate cancer (991975063) Suspected sleep apnea (88253751) Thrombocytopenia (7650327774) Tinnitus (044016677) Urinary incontinence, functional (062557308) Well adult exam (440047905) Alcoholic cirrhosis of liver Active (3205022450) History of alcohol abuse Active (6630480039) MEDICATIONS: Active Inpt Meds: None Active PRN Meds: None One Time Meds: None Active IV Meds: Lactated Ringers Infusion 1,000 mL (LR 1,000 mL) Start: 02/24/22 8:20:00 EDT, Rate: 50 mL/hr, 02/24/22 8:20:00 EDT ALLERGIES: (3) oxyCODONE PROzac sertraline FAMILY HISTORY: SOCIAL HISTORY: PHYSICAL EXAM: VITALS: YsqlmzVqnaSGNlnzcYLBcQ9GKY3UscxAb(kg) 02/24 08:1536.0183/[id number]/78176.1 24 Hr Tmax: 36.0 at 02/24 08:15 36 Hr Tmax: 36.0 at 02/24 08:15 Vital Signs are the last 5 in the past 48 hours. Weights display the last 5 within 7 days. Initial Wt: 02/24 109.1 kg 240 lb Current Wt: 02/24 109.1 kg 240 lb GENERAL: HEENT: CARDIOVASCULAR: RESPIRATORY: ABDOMEN: EXREMETIES: NEUROLOGICAL: PSYCHIATRIC: LABS: No 36hr Lab Data DIAGNOSTICS: IMPRESSION: PLAN: History and Physical Update I have examined the patient; reviewed the H&P and there are no changes to the H&P unless noted below. Digitally Signed by EDILBERTO FRYE MD on 02/24/2022 09:29 AM [facility]09-23-2022 Anesthesiology Consult note Patient: SRINATH PEPE Age: 61 years Sex: Male : 1960 Associated Diagnoses: None Author: GE ESCOBAR APRN-RETIREMENT SPECIALIST Preoperative Information Time of last food or liquid consumption: 02/24/2022 00:00:00 Anesthesia history Patient's history: negative. Family's history: negative. Health Status Allergies: Allergic Reactions (Selected) Severity Not Documented OxyCODONE- Hiccups. PROzac- Rash. Sertraline- Rash., Allergies (3) ActiveReaction oxyCODONEHiccups PROzacrash sertralineRash Current medications: (Selected) Inpatient Medications Ordered LR 1,000 mL: 50 mL/hr, Intravenous Prescriptions Prescribed Cialis 20 mg oral tablet: 20 mg, 1 tab(s), Oral, qDay, 6 tab(s), 11 Refill(s) naproxen 500 mg oral tablet: 500 mg, 1 tab(s), Oral, BID, PRN: Pain, 60 tab(s), 1 Refill(s) omeprazole 40 mg oral delayed release capsule: 40 mg, 1 cap(s), Oral, qDayAC, 90 cap(s), 3 Refill(s) valsartan 320 mg oral tablet: 320 mg, 1 tab(s), Oral, qDay, increased dose, 90 tab(s), 1 Refill(s) verapamil 180 mg/24 hours oral capsule, extended release: 180 mg, 1 cap(s), Oral, qDay, TAKE ONE CAPSULE BY MOUTH EVERY DAY, 90 cap(s), 3 Refill(s) Documented Medications Documented Co-Q10: 400 mg, Oral, Daily Nurtec ODT 75 mg oral tablet, disintegratin mg, 1 tab(s), Oral, Once, PRN: as needed for migraine headache, 8 tab(s), 0 Refill(s) Vitamin B Complex oral capsule: 1 cap(s), Oral, Daily, 0 Refill(s) Vitamin C: qDay, 0 Refill(s) magnesium oxide 400 mg oral tablet: 400 mg, 1 tab(s), Oral, qHS, Medications (1) Active Scheduled: (0) Continuous: (1) Lactated Ringers 1,000 mL 1,000 mL, Intravenous, 50 mL/hr PRN: (0) Problem list: Medical Alcoholic cirrhosis of liver Active / SNOMED CT 3478920449 / Confirmed Bronchitis / SNOMED CT 83076632 / Confirmed Suspected sleep apnea / SNOMED CT 97837958 / Confirmed Urinary incontinence, functional / SNOMED CT 734998428 / Confirmed GERD without esophagitis / SNOMED CT 5075559058 / Confirmed Hallux rigidus / SNOMED CT 262008131 / Confirmed History of alcohol abuse Active / SNOMED CT 2646985031 / Confirmed Hypertension / SNOMED CT 32198766 / Confirmed Liver disease due to alcohol / SNOMED CT [id number] / Confirmed Prostate cancer -- RARP 04/2021 PSA >10 at diagnosis now <0.05 / SNOMED CT 3913272431 / Confirmed Migraines / SNOMED CT 27488969 / Confirmed Muscle spasm of back / SNOMED CT [id number] / Confirmed Need for influenza vaccination / SNOMED CT 791844403 / Confirmed Palpitations / SNOMED CT 975352389 / Confirmed Well adult exam / SNOMED CT 250189211 / Confirmed Screening for ischemic heart disease / SNOMED CT 760711881 / Confirmed Screening for diabetes mellitus / SNOMED CT 774275782 / Confirmed Screening for colon cancer / SNOMED CT 767191236 / Confirmed Screening for prostate cancer / SNOMED CT 399367575 / Confirmed Preop examination / SNOMED CT 024594473 / Confirmed Thrombocytopenia / SNOMED CT 4080444300 / Confirmed Elevated PSA / SNOMED CT 4236143755 / Confirmed Recovering alcoholic in remission / SNOMED CT [id number] / Confirmed Need for vaccination / SNOMED CT 1386451268 / Confirmed Need for hepatitis C screening test / SNOMED CT 359825585 / Confirmed, Active Problems (26) Bronchitis Elevated PSA GERD without esophagitis Hallux rigidus Hypertension Liver disease due to alcohol Migraines Muscle spasm of back Need for hepatitis C screening test Need for influenza vaccination Need for vaccination Palpitations Preop examination Prostate cancer -- RARP 04/2021 PSA >10 at diagnosis now <0.05 Recovering alcoholic in remission Screening for colon cancer Screening for diabetes mellitus Screening for ischemic heart disease Screening for prostate cancer Suspected sleep apnea Thrombocytopenia Tinnitus Urinary incontinence, functional Well adult exam Alcoholic cirrhosis of liver Active History of alcohol abuse Active Histories Past Medical History: Active Hypertension ([id number]) Liver disease due to alcohol ([id number]) Recovering alcoholic in remission ([id number]) Muscle spasm of back ([id number]) Hallux rigidus ([id number]) Comments: 04/03/2016 EDT 13:44 ZULAY - Molly Calles RN Right foot Resolved Thrombocytopenia ([id number]): Resolved. Hiatal hernia ([id number]): Resolved. GERD (gastroesophageal reflux disease) ([id number]): Resolved. Arthritis ([id number]): Resolved. Family History: Liver cancer Brother Heart disease Father Arthritis Mother HTN - Hypertension Mother CAD - Coronary artery disease Father Aneurysm Mother Father Procedure history: Prostatectomy ([id number]) in the month of 05/2021 at 60 Years. Robot assisted laparoscopic radical prostatectomy ([id number]) on 04/29/2021 at 60 Years. Biopsy of prostate ([id number]) in the month of 04/2021 at 60 Years. Biopsy of prostate ([id number]) on 04/06/2021 at 60 Years. Toe ([id number]) in 2017 at 56 Years. Comments: 04/21/2021 7:47 MAGALIS - Valerie Smith RN right great toe Total knee replacement ([id number]) in the month of 06/2015 at 54 Years. Comments: 04/03/2016 13:36 ZULAY - JANETH CALLES Left knee Cholecystectomy ([id number]) in 1994 at 34 Years. Vasectomy ([id number]) in 1987 at 27 Years. Inguinal hernia, bilateral ([id number]) in 1977 at 17 Years. Comments: 04/21/2021 7:45 MAGALIS - Valerie Smith V. RN x 2 1994 and 1977 Arthroscopy of knee ([id number]). Comments: 04/03/2016 13:36 EDT - JANETH CALLES MOLLY Left knee x2 Social History Social & Psychosocial Habits Alcohol 12/10/2018 Use: Never 05/06/2021isk Assessment: Denies Alcohol Use Employment/School 04/27/2021 Status: Employed Description: [employer] Substance Abuse 12/10/2018 Use: Never 05/06/2021isk Assessment: Denies Substance Abuse Tobacco 11/26/2019 Tobacco Use: Never (less than 100 in l Exposure to Tobacco Smoke Lives in non-smoking home 05/06/2021 Assessment: Denies Tobacco Use Exercise 01/09/2022 Times per week: 1-2 times/week Home/Environment 04/21/2021 Domestic Concerns None Living situation: Home/Independent Lives In 1st floor bathroom, 2nd floor bathroom, 2nd floor bedroom, Multilevel home Current Home Treatments None Special Services and Community Resources None Marital Status of Patient if Patient Independent Adult: Nutrition/Health 04/21/2021 Type of diet: Regular Appetite Good Eating Difficulties None Caffeine intake amount: 2 cups of coffee daily . Physical Examination Vital Signs 02/24/2022 8:15 EDT Temperature Temporal Artery 36.0 DegC Apical Heart Rate 59 bpm LOW Respiratory Rate 17 br/min Systolic BP Left Arm 183 mmHg >HHI Diastolic BP Left Arm 103 mmHg >HHI Vital Signs(last 24 hrs) Last Charted Resp Rate 17 br/min (FEB 24 08:15) BMI29.29 (FEB 24 08:15) Measurements from flowsheet : Measurements 02/24/2022 8:15 EDT Height 193.0 cm Admission Weight 109.1 kg [place] Body Weight 86.76 kg BSA Admission 2.4 Body Mass Index 29.29 kg/m2 Pain assessment: Pain Assessment 02/24/2022 8:15 EDT Primary Pain Intensity 0 Pain Scale Type 0-10 Pain scale . General: Alert and oriented. Airway: Normal temporomandibular joint mobility, Normal mouth, Normal neck range of motion. Mallampati classification: III (soft palate, base of uvula visible). Dentition Evaluation: Denies loose/chipped teeth. Respiratory: Respirations are non-labored. Cardiovascular: Normal rate. Neurologic: Alert, Oriented. Review / Management Results review: No qualifying data available , Lab results 02/24/2022 9:23 EDT SN - GCD - ASA Class 3 02/24/2022 9:23 EDT SN - Proc - Actual Procedure ESOPHAGOGASTRODUODENOSCOPY WITH POSSIBLE BANDING 02/24/2022 9:17 EDT SN - PP - Body Position Lateral Right Side-up Standard Intra-op 02/24/2022 9:16 EDT SN - GCD - Post-operative Diagnosis CIRRHOSIS SN - GCD - Case Level OPD Level 3 02/24/2022 9:16 EDT SN - CAt - Case Attendee SN - CAt - Case Attendee SN - CAt - Case Attendee SN - CAt - Case Attendee SN - CAt - Case Attendee SN - CAt - Case Attendee SN - CAt - Case Attendee SN - CAt - Case Attendee SN - CAt - Role Performed Primary Surgeon SN - CAt - Role Performed Advice Clerk 1 SN - CAt - Role Performed RETIREMENT SPECIALIST SN - CAt - Role Performed Shank Piece Tacker 02/24/2022 8:26 EDT Lactated Ringers Injection Begin Bag 1,000 mL mL 02/24/2022 8:25 EDT Continuous IV Infusions LR Hand Right 02/24/2022 22 gauge Peripheral IV Activity: Insert new site Peripheral IV Dressing Condition: Clean, Dry, Intact Peripheral IV Dressing Activity: Applied, Transparent dressing Peripheral IV Line Status/Patency: Flushes easily Peripheral IV Site Condition: No complications Peripheral IV Equipment: Extension set, PRN Adaptor 02/24/2022 8:15 EDT Designated Person #1 We May Share [facility] Kyara [phone] Designated Person #1 Relationship Spouse Height 193.0 cm Admission Weight 109.1 kg [place] Body Weight 86.76 kg BSA Admission 2.4 Body Mass Index 29.29 kg/m2 Temperature Temporal Artery 36.0 DegC Apical Heart Rate 59 bpm LOW Respiratory Rate 17 br/min Systolic BP Left Arm 183 mmHg >HHI Diastolic BP Left Arm 103 mmHg >HHI Primary Pain Intensity 0 Pain Scale Type 0-10 Pain scale Heart Rhythm Regular Cardiac Rhythm Sinus rhythm Oxygen Therapy Room air Oxygen Saturation 95 % Status N/A Sensory Deficits None Infectious Disease Symptoms Patient states no symptoms Infectious Disease Recent Exposure No Alcohol and Drug Use No Employee of Institutional Living No Health Care Employee No History of Exposure to TB No History of Positive Chest X-Ray for TB No History of Positive TB Skin Test No Homeless No Known Immunosuppression No Recent Immigrant No Resident of Institutional Living No Bloody Sputum No Fatigue No Fever No Loss of Appetite No Night Sweats No Persistent Cough > 3 Weeks No Weight Loss No Arrival Mode Ambulatory Glasses No Dentures N/A Accompanied By On Arrival Family Barriers to Learning None evident Teaching Method Explanation, Printed materials Preferred Written Language French Preferred Spoken Language French Information Given by Patient Patient's Current Physicians Patient's Current Physicians Discharge To, Anticipated Home independently Activity Status ADL Ambulating in room, Awake Standard Safety ID band on, Allergy Band on, Call device within reach, Bed in low position, Wheels locked, Safety level maintained Prev Test Positive/Diagnosis w/COVID-19 Yes Previous COVID-19 Positive Date november 2021 Current Quarantine/Isolated any Illness No Any Contact with Sick Animals/Birds No Traveled Anywhere in Last 30 Days Yes Travel Where Within [facility](s[place] N/A Personal Devices, Patient Valuables None Admission Note-Nursing Procedure/Therapy Intake . Assessment and Plan [place] [employer] Anesthesiologists (ASA) physical status classification: Class III. Anesthetic Preoperative Plan Anesthetic technique: MAC. Informed consent: signed by patient. Digitally Signed by GE ESCOBAR on 02/24/2022 09:25 AM [facility]08-04-2022 History of Present illness Narrative * Kyara Loya, BIBLIOGRAPHIC SERVICES SPECIALIST - 01/05/2022 9:30 AM EDT RADIOLOGY SERVICE PROGRESS NOTE SERVICE DATE: 01/05/2022 SERVICE TIME: 10:39 AM PATIENT IDENTITY VERIFICATION COMPLETED USING TWO (2) STANDARD IDENTIFIERS: Name and Date of confirmed by patient verbally and Name and Date of confirmed by identification band FALL SCREENING: Has the patient had 2 falls in the last year or 1 fall with injury or currently using an Ambulatory Assistive Device (Walker, Cane, Wheelchair, Crutches, etc.)? No PATIENT GENDER DATA: .male ALLERGIES: Reviewed and unchanged MEDICATIONS REVIEWED: Not applicable PATIENT RELEVANT IMPLANT DATA REVIEWED: Not Applicable CREATININE: Creatinine Date Value Ref Range Status 08/05/2019 1.09 0.73 - 1.22 mg/dL Final 04/05/2018 0.95 0.73 - 1.22 mg/dL Final 06/28/2016 0.87 0.73 - 1.22 mg/dL Final eGFR-All Other Races Date Value Ref Range Status 08/05/2019 >60 . Final Comment: eGFR (Estimated GFR) Units of measure: mL/min/1.73 meters squared eGFR is derived from the reexpressed MDRD Study equation using the following parameters: serum creatinine, age, gender and race. The creatinine assay has been calibrated to be traceable to IDMS. An eGFR <60 mL/min/1.73m2 for >3 months is consistent with chronic kidney disease. Refer to KDOQI guidelines for clinical interpretation. In patients with unstable renal function, e.g. those with acute kidney injury, the eGFR may not accurately reflect actual GFR. eGFR- Date Value Ref Range Status 08/05/2019 >60 Final P.O.C.T. RESULTS: N/A January 05, [address] PERFORMED: No IV SITE: Ambulatory: LA only - direct IV injection in the Right hand POST EXAM PIV STATUS: Not applicable PROCEDURE TYPE: NM INJECT: 3 phase bone scan . 21.6 mCi Tc99m MDP. No other medications given.. ADMINISTRATION TIME: 9:20 PATIENT DISCHARGED TO: Ambulatory patient, left NM department area. A Diagnostic radioactive procedure has taken place, with no further precautions necessary other than routine body substance precautions. More information regarding radiation safety can be found usingthis link: [email or web address] SIGNATURE: GISELE Velasquez PATIENT NAME: Srinath Pepe DATE: January 05, 2022 TIME: 10:39 AM PAGER/CONTACT #: [facility] History of Present illness Narrative* Suzette Paul PA-C - 12/30/2021 1:14 PM EDT Associated Order(s): Large Joint Arthro/Inj: L knee joint Post-Procedure Diagnose(s): Knee swelling; Pain due to internal orthopedic prosthetic devices, implants and grafts, initial encounter (HCC); S/P total knee arthroplasty, left Mr. Srinath Pepe presents today for left knee aspiration. He has persistent knee effusion andpain with the presence of a total joint replacement. Fluid will be sent for synovasure analysis. Large Joint Arthro/Inj: L knee joint Informed Consent Consent Obtained: Verbal [place] Protocol A moment to CARE was completed. SIGN IN Personnel directly involved with the procedure wore the appropriate PPE. Special Equipment: Yes Patient/Surrogate Stated/Verified: Patient name, Date of , Relevant allergies and Intended procedure TIME OUT Intended patient and procedure match the source document(s). Consent documented and matches the intended procedure. Relevant labs, photos, and/or imaging studies have been reviewed. Correct side/site marked and visible. Medications required for procedure verified. No fire risk assessment and interventions applicable. No implant(s) inserted. 12/30/2021 1:16 PM The procedure site was prepped in the usual sterile fashion. Site: L knee joint Aspirate: 95 mL bloody sent for Synovasure analysisAnesthetics: 3 mL lidocaine (PF) 10 mg/mL (1 %) Outcome: Tolerated well, no immediate complications Post-injection instructions were reviewed with the patient and the patient voiced understanding of these instructions. SIGN OUT All specimen containers correctly labeled. No instruments, equipment or retained foreign bodies applicable. Post-procedure follow-up management communicated and Plan of Care Visit completed when applicable Suzette Paul PA-C documented in this encounterTr[facility]07-27-2022 History of Present illness Narrative* Ge Maguire MD - 12/28/2021 3:19 PM EDT Patient returns to see me today for his left knee. Briefly, he was seen approximately 3 months ago where after undergoing successful total knee replacement 9 years ago, he developed an effusion aftermowing the lawn. He was treated with prednisone in the past. This did help reduce the swelling but it recurred. Seem to happen after walking on uneven surfaces. He says he had done well and recently had no effusion and in fact did mow the lawn a few times without issue. There was no injury that he recalls. He is now walking with a cane. Denies fevers and chills. ROS Musculoskeletal: See history of present illness. Neurological: Denies numbness and tingling in upper or lower extremities Social History Tobacco Use Smoking status: Never Smoker Smokeless tobacco: Never Used Substance Use Topics Alcohol use: No Comment: former ETOH use. Drug use: No Current Outpatient Medications Medication Sig SUMAtriptan (IMITREX) 100 mg tablet Take 100 mg by mouth as needed. topiramate (TOPAMAX) 100 mg tablet Take 1 tablet by mouth daily at bedtime. docosahexanoic acid/epa (FISH OIL ORAL) Take by mouth. verapamil ER 180 mg 24 hr capsule multivitamin (DAILY MULTIVITAMIN) ORAL tablet Take one(1) tablet daily. doxazosin (CARDURA) 4 mg ORAL Tab Take one(1) tablet daily at bedtime propranolol (INDERAL) 60 mg tablet Take 60 mg by mouth three times daily. coenzyme Q10 (COQ-10) 100 mg cap capsule rizatriptan (MAXALT) 10 mg tablet Take 1 po at ONSET OF HEADACHE. MAY REPEAT once AFTER 2 HOURS. DONOT use on more than 2 days per given week. melatonin 10 mg cap Take by mouth once daily. MILK THISTLE ORAL Take 250 mg by mouth once daily. VITAMIN B COMPLEX ORAL Take 1 tablet by mouth once daily. HYDROCHLOROTHIAZIDE ORAL Take 12.5 mg by mouth once daily. omeprazole(PRILOSEC 20 MG CAP) Take one(1) capsule daily. No current facility-administered medications for this visit. Examination: 61-year-old male no acute distress. Alert and oriented x3. 6 feet 4 inches tall 245 pounds. Left knee shows a moderate effusion. Range of motion is lacking a few degrees of extension butflexion is limited by the effusion to 90 degrees. There is what I feel is increased lateral laxity on exam. No palpatory tenderness whatsoever. No warmth erythema or cellulitis. Radiologic review: Again x-rays repeated today show no significant radiolucencies loosening or subsidence. Impression: Knee effusion status post knee replacement. This seems to occur with walking on uneven surfaces and may be related to the increased lateral laxity. Again this is all new and the original surgery was approximately 9 years ago. 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 I feels necessary to do the full work-up at this point. Recommendation is a sedimentation rate C-reactive protein today coupled with a bone scan. Additionally given the patient's effusion I would like to aspirate and sent for studies he will return to see us Sunday in my [place] where that will be completed. At the conclusion of the office visit, the patient was asked if they had any questions regarding the diagnosis or care. Also, ample time was provided for the patient to ask any questions regarding the diagnosis therefore plan of care. All the patient's questions if asked were answered to their satisfaction. This note was partially generated using Sonendo recognition system and as such may contain grammatical or word errors Ge Maguire MD documented in this encounterTr[facility]07-27-2022 History of Present illness Narrative* Courtney Arndt RT(R) - 12/28/2021 3:00 PM EDT Radiology Service Progress Note PATIENT NAME: Srinath Pepe DATE OF SERVICE: December 28, 2021 TIME: 3:06 PM PATIENT IDENTITY VERIFICATION COMPLETED USING TWO (2) IDENTIFIERS: Name and Date of confirmedby patient verbally. FALL SCREENING: Has the patient had 2 falls in the last year or 1 fall with injury or currently using an Ambulatory Assistive Device (Walker, Cane, Wheelchair, Crutches, etc.)? No PATIENT GENDER DATA: Male PATIENT RELEVANT IMPLANT DATA REVIEWED: Not Applicable RADIOLOGY DEPARTMENT: General X-ray: Exam(s) Completed: Lower Extremity X- Ray(s): Knee, AP / Lat / Merchant Left PERIPHERAL IV DATA: Not applicable SIGNED BY: RT Saida(R) December 28, 2021 3:06 PM documented in this encounterTr[facility] System06-06-2022 Hospital Discharge instructions Patient Education 11/07/2021 14:05:02 Dizziness, Uncertain Cause Dizziness (Uncertain Cause) Dizziness is a common symptom. It may be described as lightheadedness, spinning, or feeling like you are going to faint. Dizziness can have many causes. Be sure to tell the healthcare provider about: All medicines you take, including prescription, iymh-zsd-qxyrriv, herbs, and supplements Any other symptoms you have Any health problems you are being treated for Any past major health problems you've had, such as a heart attack, balance issues, hearing problems, or blood pressure problems Anything that causes the dizziness to get worse or better Today's exam did not show an exact cause for your dizziness. Other tests may be needed. Follow up with your healthcare provider. Home care Dizziness that occurs with sudden standing may be a sign of mild dehydration. Drink extra fluids for the next few days. If you recently started a new medicine, stopped a medicine, or had the dose of a current medicine changed, talk with the prescribing healthcare provider. Your medicine plan may need adjustment. If dizziness lasts more than a few seconds, sit or lie down until it passes. This may help prevent injury in case you pass out. Get up slowly when you feel better. Don't drive or use power tools or dangerous equipment until you have had no dizziness for at least 48 hours. Follow-up care Follow up with your healthcare provider for further evaluation within the next 7 days or as advised. When to seek medical advice Call your healthcare provider for any of the following: Worsening of symptoms or new symptoms Passing out or seizure Repeated vomiting Headache Palpitations (the sense that your heart is fluttering or beating fast or hard) Shortness of breath Blood in vomit or stool (black or red color) Weakness of an arm or leg or 1 side of the face Vision or hearing changes Trouble walking or speaking Chest, arm, neck, back, or jaw pain [id number] [employer] [address] [place] [address]. All rights reserved. This information is not intended as a substitute for professional medical care. Always follow yourhealthcare professional's instructions. 11/07/2021 14:04:55 COVID-19 Prevent the Spread of COVID-19 If You Are Sick (10/21/2019)(CUSTOM) Prevent the Spread of COVID-19 If You Are Sick Accessible version: https://www.cdc.gov/coronavirus/2019-ncov/sl-ber-tgm-sick/gytyu-otpe-utvw.html If you are sick with COVID-19 or think you might have COVID-19, follow the steps below to help protect other people in your home and community. Stay home except to get medical care. Stay home. Most people with COVID-19 have mild illness and are able to recover at home without medical care. Do not leave your home, except to get medical care. Do not visit public areas. Take care of yourself. Get rest and stay hydrated. Get medical care when needed. Call your doctor before you go to their office for care. But, if you have trouble breathing or other concerning symptoms, call 911 for immediate help. Avoid public transportation, ride-sharing, or taxis. Separate yourself from other people and pets in your home. As much as possible, stay in a specific room and away from other people and pets in your home. Also, you should use a separate bathroom, if available. If you need to be around other people or animalsin or outside of the home, wear a cloth face covering. See COVID-19 and Animals if you have questions about pets: https://www.cdc.gov/coronavirus/2019ncov/faq.html#VWHZH12lttsyfb Monitor your symptoms. Common symptoms of COVID-19 include fever and cough. Trouble breathing is a more serious symptom that means you should get medical attention. Follow care instructions from your healthcare provider and local health department. Your local health authorities will give instructions on checking your symptoms and reporting information. If you develop emergency warning signs for COVID-19 get medical attention immediately. Emergency warning signs include*: Trouble breathing Persistent pain or pressure in the chest New confusion or not able to be woken Bluish lips or face *This list is not all inclusive. Please consult your medical provider for any other symptoms that are severe or concerning to you. Call 911 if you have a medical emergency. If you have a medical emergency and need to call 911, notify the filling machine operator that you have or think you might have, COVID-19. If possible, put on a facemask before medical help arrives Call ahead before visiting your doctor. Call ahead. Many medical visits for routine care are being postponed or done by phone or telemedicine. If you have a medical appointment that cannot be postponed, call your doctor s office. This will help the office protect themselves and other patients. If you are sick, wear a cloth covering over your nose and mouth. You should wear a cloth face covering over your nose and mouth if you must be around other people or animals, including pets (even at home). You don t need to wear the cloth face covering if you are alone. If you can t put on a cloth face covering (because of trouble breathing for example), cover your coughs and sneezes in some other way.Try to stay at least 6 feet away from other people. This will help protect the people around you. Note: During the COVID-19 pandemic, medical grade facemasks are reserved for healthcare workers andsome first responders. You may need to make a cloth face covering using a scarf or bandana. Cover your coughs and sneezes. Cover your mouth and nose with a tissue when you cough or sneeze. Throw used tissues in a lined trash can. Immediately wash your hands with soap and water for at least 20 seconds. If soap and water are not available, clean your hands with an alcohol-based hand harbour master that contains at least 60% alcohol. Clean your hands often. Wash your hands often with soap and water for at least 20 seconds. This is especially important after blowing your nose, coughing, or sneezing; going to the bathroom; and before eating or preparing food. Use hand harbour master if soap and water are not available. Use an alcohol-based hand harbour master with atleast 60% alcohol, covering all surfaces of your hands and rubbing them together until they feel dry. Soap and water are the best option, especially if your hands are visibly dirty. \ Avoid touching your eyes, nose, and mouth with unwashed hands. Avoid sharing personal household items. Do not share dishes, drinking glasses, cups, eating utensils, towels, or bedding with other people in your home. Wash these items thoroughly after using them with soap and water or put them in the middle school director. Clean all high-touch surfaces everyday. Clean and disinfect high-touch surfaces in your sick room and bathroom. Let someone else clean and disinfect surfaces in common areas, but not your bedroom and bathroom. If a caregiver or other person needs to clean and disinfect a sick person s bedroom or bathroom, they should do so on an as-needed basis. The caregiver/other person should wear a mask and wait as long as possible after the sick person has used the bathroom High-touch surfaces include phones, remote controls, counters, tabletops, doorknobs, bathroom fixtures, toilets, keyboards, tablets, and bedside tables. Clean and disinfect areas that may have blood, stool, or body fluids on them. Use household paint line operator and disinfectants. Clean the area or item with soap and water or another detergent if it is dirty. Then use a household disinfectant. Be sure to follow the instructions on the label to ensure safe and effective use of the product. Many products recommend keeping the surface wet for several minutes to ensure germs are killed. Many also recommend precautions such as wearing gloves and making sure you have good ventilation during use of the product. Most EPA-registered household disinfectants should be effective. How to discontinue home isolation. People with COVID-19 who have stayed home (home isolated) can stop home isolation under the following conditions: If you will not have a test to determine if you are still contagious, you can leave home after these three things have happened: You have had no fever for at least 72 hours (that is three full days of no fever without the use ofmedicine that reduces fevers) AND other symptoms have improved (for example, when your cough or shortness of breath has improved) AND at least 10 days have passed since your symptoms first appeared. If you will be tested to determine if you are still contagious, you can leave home after these three things have happened: You no longer have a fever (without the use of medicine that reduces fevers) AND other symptoms have improved (for example, when your cough or shortness of breath has improved) AND you received two negative tests in a row, 24 hours apart. Your doctor will follow CDC guidelines. In all cases, follow the guidance of your healthcare provider and local health department. The decision to stop home isolation should be made in consultation with your healthcare provider and state and local health departments. Local decisions depend on local circumstances. cdc.gov/coronavirus Follow Up Care 11/07/2021 13:54:17 With:MARK SMITH DO Address: [address] [place] [address] [phone] When:2-4 days [facility] 06-02-2022 History of Present illness Narrative* Suzette Paul PA-C - 11/03/2021 9:27 PM EDT Suzette Paul PA-C Established Patient Department of Orthopaedics Orthopaedics [facility] [place] [address] Dept: [phone] Dept November 03, 2021 SUBJECTIVE: CHIEF COMPLAINT: Established Patient, Knee Pain, and Swelling of the Left Knee HPI: Mr. Srinath Pepe is a 60 year old male. He was last seen in the office on 10/25/2021 where he was started on a prednisone taper for acute left knee pain and an effusion after mowing the lawn. He underwent left total knee replacement 6 years ago and was doing well until several weeks ago. He presents today with his for follow-up. Today he rates his pain a 0 on a scale of 0-10. He states that the prednisone taper prescribed previously significantly improved his pain and swelling. She had to go he woke up with increased swelling and pain. His pain has since resolve and his swelling has been improving. He denies any recent fever/chills, redness, warmth or recent injury. Past Medical History: PAST MEDICAL HISTORY Diagnosis Date Cirrhosis, alcoholic (HCC) GERD (gastroesophageal reflux disease) HTN (hypertension) Past Surgical History: PAST SURGICAL HISTORY Procedure Laterality Date ARTHROSCOPY KNEE DIAGNOSTIC W/WO SYNOVIAL BX SPX Arthroscopy, knee, left COLONOSCOPY EGD LAPAROSCOPY SURG CHOLECYSTECTOMY Cholecystectomy, lap REMOVE TONSILS/ADENOIDS,<11 Y/O RPR 1ST INGUN HRNA AGE 4 YRS/> REDUCIBLE Hernia repair, inguinal, right RPR 1ST INGUN HRNA AGE 4 YRS/> REDUCIBLE Hernia repair, inguinal, left Family History: FAMILY HISTORY Problem Relation Age of Onset Heart Father None Mother Cancer Brother Liver Social History: Social History Tobacco Use Smoking status: Never Smoker Smokeless tobacco: Never Used Substance Use Topics Alcohol use: No Comment: former ETOH use. Drug use: No Medications: Current Outpatient Medications Medication Sig SUMAtriptan (IMITREX) 100 mg tablet Take 100 mg by mouth as needed. propranolol (INDERAL) 60 mg tablet Take 60 mg by mouth three times daily. methylPREDNISolone (MEDROL, RODNEY,) 4 mg Dose-Pack Take 1 tablet by mouth as directed. As directed onpackage topiramate (TOPAMAX) 100 mg tablet Take 1 tablet by mouth daily at bedtime. rizatriptan (MAXALT) 10 mg tablet Take 1 po at ONSET OF HEADACHE. MAY REPEAT once AFTER 2 HOURS. DONOT use on more than 2 days per given week. docosahexanoic acid/epa (FISH OIL ORAL) Take by mouth. verapamil ER 180 mg 24 hr capsule VITAMIN B COMPLEX ORAL Take 1 tablet by mouth once daily. multivitamin (DAILY MULTIVITAMIN) ORAL tablet Take one(1) tablet daily. doxazosin (CARDURA) 4 mg ORAL Tab Take one(1) tablet daily at bedtime diclofenac, EC, (VOLTAREN) 50 mg EC tablet Take 1 tablet by mouth twice daily. coenzyme Q10 (COQ-10) 100 mg cap capsule melatonin 10 mg cap Take by mouth once daily. MILK THISTLE ORAL Take 250 mg by mouth once daily. HYDROCHLOROTHIAZIDE ORAL Take 12.5 mg by mouth once daily. omeprazole(PRILOSEC 20 MG CAP) Take one(1) capsule daily. No current facility-administered medications for this visit. Allergies: Oxycodone, Tylenol [Acetaminophen], and Prozac [Fluoxetine Hcl] ROS: General: negative for fatigue, malaise, weight loss/gain Musculoskeletal: see HPI Psych: no depression, anxiety OBJECTIVE: Mr. Srinath Peep is a pleasant 60 year old in no apparent distress. Gen:Ht 6' 4 (1.93m) Wt 245 lb (111.1kg) BMI 29.83 kg/(m^2). nl development, non obese, no deformities ENT: Normocephalic, normal hearing, moist mucosa CV: Pulses:DP/PT= 2+ and symmetric, capillary refill < 2 secs, no peripheral edema/varicosities Skin: no rash, bruising or lesions. Good turgor. Psych: cooperative and appropriate, alert and oriented x 3, good mood and affect. Musculoskeletal: Right knee, bilateral hips and ankles FROM without pain or limitation. LT Knee: Alignment: Neutral Active Extension 0 and Active Flexion 110 Extension lag: No Pain with ROM: No Effusion: Mild Erythema: No Tender to the palpation of None Pain with patellar compression: No Stability: Anterior/Posterior stable and Varus/Valgus stable IMAGING: Not indicated ASSESSMENT: M25.562 Acute pain of left knee (primary encounter diagnosis) M25.469 Knee swelling Z96.652 S/P total knee arthroplasty, left PLAN: Discussed plan with Dr. Maguire. As patient was improving with prednisone therapy recommendation is anti-inflammatories. Advised patient that he should rest his knee for the next few weeks. Patientagreeable with plan will call the office if he were to have any worsening or new symptoms. FOLLOW UP INSTRUCTIONS: [address] Ting Paul PA-C [facility] History of Present illness Narrative* Ge Maguire MD - 10/25/2021 11:04 AM EDT Patient returns to see me for his left knee. Briefly, 6 years ago he underwent a successful left total knee replacement with no problem. Has been doing well since that time but yesterday was mowing the lawn and developed swelling within an hour. He denies any injury twisting his knee or stepping into a hole. This was however a push mower. He is done this activity before with no issues. Denies fevers chills or recent illnesses. ROS Musculoskeletal: See history of present illness. Neurological: Denies numbness and tingling in upper or lower extremities Social History Tobacco Use Smoking status: Never Smoker Smokeless tobacco: Never Used Substance Use Topics Alcohol use: No Comment: former ETOH use. Drug use: No Current Outpatient Medications Medication Sig SUMAtriptan (IMITREX) 100 mg tablet Take 100 mg by mouth as needed. propranolol (INDERAL) 60 mg tablet Take 60 mg by mouth three times daily. rizatriptan (MAXALT) 10 mg tablet Take 1 po at ONSET OF HEADACHE. MAY REPEAT once AFTER 2 HOURS. DONOT use on more than 2 days per given week. naproxen (NAPROSYN) 500 mg tablet Take 1 tablet by mouth twice daily as needed (for migraine). FOR PAIN. TAKE WITH FOOD. docosahexanoic acid/epa (FISH OIL ORAL) Take by mouth. verapamil ER 180 mg 24 hr capsule VITAMIN B COMPLEX ORAL Take 1 tablet by mouth once daily. multivitamin (DAILY MULTIVITAMIN) ORAL tablet Take one(1) tablet daily. doxazosin (CARDURA) 4 mg ORAL Tab Take one(1) tablet daily at bedtime methylPREDNISolone (MEDROL, RODNEY,) 4 mg Dose-Pack Take 1 tablet by mouth as directed. As directed onpackage coenzyme Q10 (COQ-10) 100 mg cap capsule topiramate (TOPAMAX) 100 mg tablet Take 1 tablet by mouth daily at bedtime. (Patient not taking: Reported on 10/25/2021 ) melatonin 10 mg cap Take by mouth once daily. MILK THISTLE ORAL Take 250 mg by mouth once daily. HYDROCHLOROTHIAZIDE ORAL Take 12.5 mg by mouth once daily. omeprazole(PRILOSEC 20 MG CAP) Take one(1) capsule daily. No current facility-administered medications for this visit. Examination: 60-year-old male no acute distress. Alert and oriented x3. 6 feet 4 inches tall 245 pounds. Examination of the left knee reveals a moderate effusion with range of motion limited by that effusion to 45 to 50 degrees of flexion. No warmth is appreciated there is no redness erythema or lymphangitis. No proximal or distal swelling. Radiologic review: X-rays ordered by me and to my interpretation show anatomic placed components with no signs of radiographic loosening. Impression: Probable hematoma left knee. Certainly this could be a normal effusion with synovitis however the patient states this happened very quickly which is more consistent with a hematoma. Recommendation is a Medrol pack with a period of inactivity as well as ice And will see the patient back next week to see how he is faring. At the conclusion of the office visit, the patient was asked if they had any questions regarding the diagnosis or care. Also, ample time was provided for the patient to ask any questions regarding the diagnosis therefore plan of care. All the patient's questions if asked were answered to their satisfaction. This note was partially generated using [employer] voice recognition system and as such may contain grammatical or word errors Ge Maguire MD documented in this encounterTr[facility]05-24-2022 History of Present illness Narrative* Isabel Holm, RT(R) - 10/25/2021 9:00 AM EDT Radiology Service Progress Note PATIENT NAME: Srinath Pepe DATE OF SERVICE: October 25, 2021 TIME: 9:57 AM PATIENT IDENTITY VERIFICATION COMPLETED USING TWO (2) IDENTIFIERS: Name and Date of confirmedby patient verbally. FALL SCREENING: Has the patient had 2 falls in the last year or 1 fall with injury or currently using an Ambulatory Assistive Device (Walker, Cane, Wheelchair, Crutches, etc.)? Yes, Patient High Riskfor Falls What interventions were put in place to prevent falls during this visit? Increased Observations by Caregivers PATIENT GENDER DATA: Male PATIENT RELEVANT IMPLANT DATA REVIEWED: Not Applicable RADIOLOGY DEPARTMENT: General X-ray: Exam(s) Completed: Lower Extremity X- Ray(s): Knee, AP / Lat / Tunne / Merchant Left and Wt. Bearing PERIPHERAL IV DATA: Not applicable SIGNED BY: RT Saurabh(R) October 25, 2021 9:57 AM documented in this encounterTr[facility]05-24-[facility]22 Hospital Discharge instructions Patient Education 10/24/2021 22:30:13 Knee Sprain Knee Sprain A sprain is an injury to the ligaments or capsule that holds a joint together. There are no broken bones. Most sprains take 3 to 6 weeks to heal. If it a severe sprain where the ligament is completely torn, it can take months to recover. Most knee sprains are treated with a splint, knee immobilizer brace, or elastic wrap for support. Severe sprains may rarely require surgery. Home care Stay off the injured leg as much as possible until you can walk on it without pain. If you have a lot of pain with walking, crutches or a walker may be prescribed. (These can be rented or purchased at many pharmacies and surgical or orthopedic supply stores). Follow your healthcare provider's advice about when to begin putting weight on that leg. Keep your leg elevated to reduce pain and swelling. When sleeping, place a pillow under the injuredleg. When sitting, support the injured leg so it is above heart level. This is very important during the first 48 hours. Apply an ice pack over the injured area for 15 to 20 minutes every 3 to 6 hours. You should do thisfor the first 24 to 48 hours. You can make an ice pack by filling a plastic bag that seals at the top with ice cubes and then wrapping it with a thin towel. Continue to use ice packs for relief of pain and swelling as needed. As the ice melts, be careful to avoid getting your wrap, splint, or cast wet. After 48 hours, apply heat (warm shower or warm bath) for 15 to 20 minutes several times a day,or alternate ice and heat. You can place the ice pack directly over the splint. If you have to weara drrm-tqi-dxlo knee brace, you can open it to apply the ice pack, or heat, directly to the knee. Never put ice directly on the skin. Always wrap the ice in a towel or other type of cloth. You may use mjiz-goq-pqnkvue pain medicine to control pain, unless another pain medicine was prescribed. If you have chronic liver or kidney disease or ever had a stomach ulcer or gastrointestinal bleeding, talk with your healthcare provider before using these medicines. If you were given a splint, keep it completely dry at all times. Bathe with your splint out of the water, protected with 2 large plastic bags, sealed with rubber bands or tape at the top end. If a fiberglass splint gets wet, you can dry it with a technologies division chair set to cool. If you have a irra-rzy-buvx knee brace, you can remove this to bathe, unless told otherwise. Follow-up care Follow up with your doctor as advised. Any X-rays you had today don t show any broken bones, breaks, or fractures. Sometimes fractures don t show up on the first X-ray. Bruises and sprains can sometimes hurt as much as a fracture. These injuries can take time to heal completely. If your symptoms don t improve or they get worse, talk with your doctor. You may need a repeat X-ray. If X-rays were taken, you will be told of any new findings that may affect your care. Call 911 Call 911 if you have: Shortness of breath Chest pain When to seek medical advice Call your healthcare provider right away if any of these occur: The splint or knee immobilizer brace becomes wet or soft The fiberglass cast or splint remains wet for more than 24 hours Pain or swelling increases The injured leg or toes become cold, blue, numb, or tingly [employer] [address] [place] [address]. All rights reserved. This information is not intended as a substitute for professional medical care. Always follow [facility] professional's instructions. Follow Up Care 10/24/2021 20:38:41 With:your orthopedic doctor Address: When:2-4 days [facility] 12-03-2021 Hospital Discharge instructions Patient Education 05/06/2021 15:14:06 Oquendo Catheter, Care Oquendo Catheter Care A Oquendo catheter is a rubber tube that is placed through the urethra (opening where urine comes out) and into the bladder. This helps drain urine from the bladder. There is a small balloon on the endof the tube that is inflated after insertion. This keeps the catheter from sliding out of the bladder. A Oquendo catheter is used to treat urinary retention (unable to pass urine). It is also used when there is incontinence (loss of bladder control). Home care Finish taking any prescribed antibiotic even if you are feeling better before then. It is important to keep bacteria from getting into the collection bag. Do not disconnect the catheter from the collection bag. Use a leg band to secure the drainage tube, so it does not pull on the catheter. Drain the collection bag when it becomes full using the drain spout at the bottom of the bag. Do not try to pull or remove your catheter. This will injure your urethra. It must be removed by your healthcare provider or nurse. Follow-up care Follow up with your healthcare provider as advised for repeat urine testing and catheter removal orreplacement. When to seek medical advice Call your healthcare provider right away if any of these occur: Fever of 100.4 F (38 C) or higher, or as directed by your healthcare provider Bladder pain or fullness Abdominal swelling, nausea or vomiting, or back pain Blood or urine leakage around the catheter Bloody urine coming from the catheter (if a new symptom) Catheter falls out Catheter stops draining for 6 hours Weakness, dizziness, or fainting [employer] [address] [place] [address]881. All rights reserved. This information is not intended as a substitute for professional medical care. Always follow [facility] professional's instructions. 05/06/2021 15:13:47 Oquendo Catheter, Care Oquendo Catheter Care A Oquendo catheter is a rubber tube that is placed through the urethra (opening where urine comes out) and into the bladder. This helps drain urine from the bladder. There is a small balloon on the endof the tube that is inflated after insertion. This keeps the catheter from sliding out of the bladder. A Oquendo catheter is used to treat urinary retention (unable to pass urine). It is also used when there is incontinence (loss of bladder control). Home care Finish taking any prescribed antibiotic even if you are feeling better before then. It is important to keep bacteria from getting into the collection bag. Do not disconnect the catheter from the collection bag. Use a leg band to secure the drainage tube, so it does not pull on the catheter. Drain the collection bag when it becomes full using the drain spout at the bottom of the bag. Do not try to pull or remove your catheter. This will injure your urethra. It must be removed by your healthcare provider or nurse. Follow-up care Follow up with your healthcare provider as advised for repeat urine testing and catheter removal orreplacement. When to seek medical advice Call your healthcare provider right away if any of these occur: Fever of 100.4 F (38 C) or higher, or as directed by your healthcare provider Bladder pain or fullness Abdominal swelling, nausea or vomiting, or back pain Blood or urine leakage around the catheter Bloody urine coming from the catheter (if a new symptom) Catheter falls out Catheter stops draining for 6 hours Weakness, dizziness, or fainting [id number] [employer] [address] [place] [address]264. All rights reserved. This information is not intended as a substitute for professional medical care. Always follow yourhealthcare professional's instructions. Follow Up Care 05/06/2021 14:27:40 With:Your urologist Address: When: Unknown Comments:Follow-up sunday as scheduled. With:MARK SMITH DO Address: When:2-4 days With:ANA VILLA MD, [facility] Address: [phone] When:1-2 days Comments:Follow up as scheduled with urology on 05/09/21. [facility] 01-25-2016 History of Past illness Narrative* Problem Noted Date Resolved Date Arthritis of knee, left 06/28/2015 06/28/19 16 Arthritis of left knee 11/11/2013 6 documented as of this encounter (statuses as of 10/25/2021) [facility] Narrative* Problem Noted Date Resolved Date Arthritis of knee, left 06/28/2015 06/28/19 16 Arthritis of left knee 11/11/2013 6 documented as of this encounter (statuses as of 11/04/2021) [facility] Narrative* Problem Noted Date Resolved Date Arthritis of knee, left 06/28/2015 06/28/19 16 Arthritis of left knee 11/11/2013 6 documented as of this encounter (statuses as of 12/28/2021) [facility] Narrative* Problem Noted Date Resolved Date Arthritis of knee, left 06/28/2015 06/28/19 16 Arthritis of left knee 11/11/2013 6 documented as of this encounter (statuses as of 12/28/2021) [facility] Narrative* Problem Noted Date Resolved Date Arthritis of knee, left 06/28/2015 06/28/19 16 Arthritis of left knee 11/11/2013 6 documented as of this encounter (statuses as of 12/30/2021) [facility] Narrative* Problem Noted Date Resolved Date Arthritis of knee, left 06/28/2015 06/28/19 16 Arthritis of left knee 11/11/2013 6 documented as of this encounter (statuses as of 01/06/2022) [facility] Narrative* Problem Noted Date Resolved Date Arthritis of knee, left 06/28/2015 06/28/19 16 Arthritis of left knee 11/11/2013 6 documented as of this encounter (statuses as of 01/06/2022) [facility] Narrative* Problem Noted Date Resolved Date Arthritis of knee, left 06/28/2015 06/28/19 16 Arthritis of left knee 11/11/2013 6 documented as of this encounter (statuses as of 10/03/2022) [facility] Narrative* Problem Noted Date Resolved Date Arthritis of knee, left 06/28/2015 06/28/19 16 Arthritis of left knee 11/11/2013 6 documented as of this encounter (statuses as of 10/04/2022) [facility] Narrative* Problem Noted Date Resolved Date Arthritis of knee, left 06/28/2015 06/28/19 16 Arthritis of left knee 11/11/2013 6 documented as of this encounter (statuses as of 10/10/2022) [address]25-2016 History of Past illness Narrative* Problem Noted Date Resolved Date Arthritis of knee, left 06/28/2015 06/28/19 16 Arthritis of left knee 11/11/2013 6 documented as of this encounter (statuses as of 10/11/2022) [facility] Narrative* Problem Noted Date Resolved Date Arthritis of knee, left 06/28/2015 06/28/19 16 Arthritis of left knee 11/11/2013 6 documented as of this encounter (statuses as of 11/06/2022) [facility] Narrative* Problem Noted Date Resolved Date Arthritis of knee, left 06/28/2015 06/28/19 16 Arthritis of left knee 11/11/2013 6 documented as of this encounter (statuses as of 11/09/2022) [facility] Narrative* Problem Noted Date Diagnosed Date Resolved Date Arthritis of knee, left 06/28/201506/05 Arthritis of left knee 11/11/201306/28 documented as of this encounter (statuses as of 04/08/2023) [address]25-2016 History of Past illness Narrative* Problem Noted Date Diagnosed Date Resolved Date Arthritis of knee, left 06/28/201506/05 Arthritis of left knee 11/11/201306/28 documented as of this encounter (statuses as of 04/08/2023) [facility] Appointment Date:04/12/2021 08:10:00 AM Scheduled Provider:ANA VILLA MD Location:[facility] Appointment Type:[facility] Appointment Date:04/18/2021 11:10:00 AM Scheduled Provider:ANA VILLA MD Location:[facility] Appointment Type:[facility] Talk Appointment Date:05/20/2021 08:00:00 AM Scheduled Provider:MARK SMITH DO Location:[facility] Appointment Type:PC OV Appointment Date:06/20/2021 01:00:00 PM Scheduled Provider:LENARD ASENCIO MD Location:[facility] Appointment Type:[facility] OV Follow Up [facility] Evaluation + Plan note Future Appointments Appointment Date:05/20/2021 08:00:00 AM Scheduled Provider:MARK SMITH DO Location:[facility] Appointment Type:PC OV Appointment Date:06/20/2021 01:00:00 PM Scheduled Provider:LENARD ASENCIO MD Location:[facility] Appointment Type:[facility] OV Follow Up Future Scheduled Tests Laboratory* Basic Metabolic Panel 04/18/21 * Complete Blood Count 04/18/21 [facility] Evaluation + Plan note Future Appointments Appointment Date:05/20/2021 08:00:00 AM Scheduled Provider:MARK SMITH DO Location:[facility] Appointment Type:PC OV Appointment Date:06/20/2021 01:00:00 PM Scheduled Provider:LENARD ASENCIO MD Location:[facility] Appointment Type:[facility] OV Follow Up [facility] Evaluation + Plan note Future Appointments Appointment Date:05/09/2021 08:00:00 AM Scheduled Provider:MARIA A STRICKLAND Location:[facility] Appointment Type:[facility] Appointment Date:05/20/2021 08:00:00 AM Scheduled Provider:MARK SMITH DO Location:[facility] Appointment Type:PC OV Appointment Date:06/13/2021 09:30:00 AM Scheduled Provider:ANA VILLA MD Location:UROLOGY Appointment Type:URO OV Appointment Date:06/20/2021 01:00:00 PM Scheduled Provider:LENARD ASENCIO MD Location:[facility] Appointment Type:[facility] OV Follow Up Future Scheduled Tests Laboratory* Prostate Specific Antigen 06/03/21 * Complete Blood Count 04/29/21 [facility] Evaluation + Plan note Future Appointments Appointment Date:05/20/2021 08:00:00 AM Scheduled Provider:MARK SMITH DO Location:[facility] Appointment Type:PC OV Appointment Date:06/13/2021 09:30:00 AM Scheduled Provider:ANA VILLA MD Location:UROLOGY Appointment Type:URO OV Appointment Date:06/20/2021 01:00:00 PM Scheduled Provider:LENARD ASENCIO MD Location:[facility] Appointment Type:HEM ONC OV Follow Up Future Scheduled Tests Laboratory* Prostate Specific Antigen 06/03/21 * Complete Blood Count 04/29/21 [facility] Evaluation + Plan note Future Appointments Appointment Date:06/10/2021 08:30:00 AM Scheduled Provider:MARK SMITH DO Location:[facility] Appointment Type:PC OV Appointment Date:06/13/2021 09:30:00 AM Scheduled Provider:ANA VILLA MD Location:UROLOGY Appointment Type:URO OV Appointment Date:06/20/2021 01:00:00 PM Scheduled Provider:LENARD ASENCIO MD Location:[facility] Appointment Type:HEM ONC OV Follow Up Future Scheduled Tests Laboratory* Prostate Specific Antigen 06/03/21 * Complete Blood Count 04/29/21 [facility] Evaluation + Plan note Future Appointments Appointment Date:06/10/2021 08:30:00 AM Scheduled Provider:MARK SMITH DO Location:[facility] Appointment Type:PC OV Appointment Date:06/13/2021 09:30:00 AM Scheduled Provider:ANA VILLA MD Location:UROLOGY Appointment Type:URO OV Appointment Date:06/20/2021 01:00:00 PM Scheduled Provider:LENARD ASENCIO MD Location:[facility] Appointment Type:HEM ONC OV Follow Up Future Scheduled Tests Laboratory* Complete Blood Count 04/29/21 [facility] Evaluation + Plan note Future Appointments Appointment Date:06/20/2021 01:00:00 PM Scheduled Provider:LENARD ASENCIO MD Location:[facility] Appointment Type:HEM ONC OV Follow Up Appointment Date:09/19/2021 10:00:00 AM Scheduled Provider:ANA VILLA MD Location:UROLOGY Appointment Type:URO OV Appointment Date:09/30/2021 08:30:00 AM Scheduled Provider:MARK SMITH DO Location:[facility] Appointment Type:PC OV Future Scheduled Tests Laboratory* Prostate Specific Antigen 09/11/21 * Complete Blood Count 04/29/21 [facility] Evaluation + Plan note Future Appointments Appointment Date:09/19/2021 10:00:00 AM Scheduled Provider:ANA VILLA MD Location:UROLOGY Appointment Type:URO OV Appointment Date:09/30/2021 08:30:00 AM Scheduled Provider:MARK SMITH DO Location:[facility] Appointment Type:PC OV Appointment Date:06/09/2022 01:00:00 PM Scheduled Provider:LENARD ASENCIO MD Location:[facility] Appointment Type:HEM ONC OV Follow Up Future Scheduled Tests Laboratory* Prostate Specific Antigen 09/11/21 * Complete Blood Count 04/29/21 [facility] Evaluation + Plan note Future Appointments Appointment Date:09/19/2021 10:00:00 AM Scheduled Provider:ANA VILLA MD Location:UROLOGY Appointment Type:URO OV Appointment Date:09/30/2021 08:30:00 AM Scheduled Provider:MARK SMITH DO Location:[facility] Appointment Type:PC OV Appointment Date:06/09/2022 01:00:00 PM Scheduled Provider:LENARD ASENCIO MD Location:[facility] Appointment Type:HEM ONC OV Follow Up Future Scheduled Tests Laboratory* Complete Blood Count 04/29/21 [facility] Evaluation + Plan note Future Appointments Appointment Date:09/30/2021 08:30:00 AM Scheduled Provider:MARK SMITH DO Location:[facility] Appointment Type:PC OV Appointment Date:01/16/2022 08:10:00 AM Scheduled Provider:ANA VILLA MD Location:UROLOGY Appointment Type:URO OV Appointment Date:06/09/2022 01:00:00 PM Scheduled Provider:LENARD ASENCIO MD Location:[facility] Appointment Type:HEM ONC OV Follow Up Future Scheduled Tests Laboratory* Prostate Specific Antigen 12/19/21 * Complete Blood Count 04/29/21 [facility] Evaluation + Plan note Future Appointments Appointment Date:12/30/2021 09:00:00 AM Scheduled Provider:MARK SMITH DO Location:[facility] Appointment Type:PC Wellness Annual Appointment Date:01/16/2022 08:10:00 AM Scheduled Provider:ANA VILLA MD Location:UROLOGY Appointment Type:URO OV Appointment Date:06/09/2022 01:00:00 PM Scheduled Provider:ELNARD ASENCIO MD Location:[facility] Appointment Type:HEM ONC OV Follow Up Future Scheduled Tests Laboratory* Prostate Specific Antigen 12/19/21 * Complete Blood Count 04/29/21 [facility] evaluation + Plan note Future Appointments Appointment Date:11/15/2021 01:30:00 PM Scheduled Provider:MARK SMITH DO Location:[facility] Appointment Type:PC OV ED Follow Up Appointment Date:12/30/2021 09:00:00 AM Scheduled Provider:MARK SMITH DO Location:[facility] Appointment Type:PC Wellness Annual Appointment Date:01/16/2022 08:10:00 AM Scheduled Provider:ANA VILLA MD Location:UROLOGY Appointment Type:URO OV Appointment Date:06/09/2022 01:00:00 PM Scheduled Provider:LENARD ASENCIO MD Location:[facility] Appointment Type:HEM ONC OV Follow Up Future Scheduled Tests Laboratory* Prostate Specific Antigen 12/19/21 * Complete Blood Count 04/29/21 [facility] Evaluation + Plan note Future Appointments Appointment Date:01/16/2022 08:10:00 AM Scheduled Provider:ANA VILLA MD Location:UROLOGY Appointment Type:URO OV Appointment Date:06/09/2022 01:00:00 PM Scheduled Provider:LENARD ASENCIO MD Location:[facility] Appointment Type:HEM ONC OV Follow Up Appointment Date:07/04/2022 09:30:00 AM Scheduled Provider:MARK SMITH DO Location:[facility] Appointment Type:PC OV Future Scheduled Tests Laboratory* Basic Metabolic Panel 02/06/22 * Complete Blood Count 04/29/21 [facility] evaluation + Plan note Future Appointments Appointment Date:06/09/2022 01:00:00 PM Scheduled Provider:LENARD ASENCIO MD Location:[facility] Appointment Type:HEM ONC OV Follow Up Appointment Date:07/04/2022 09:30:00 AM Scheduled Provider:MARK SMITH DO Location:[facility] Appointment Type:PC OV Appointment Date:07/24/2022 11:20:00 AM Scheduled Provider:ANA VILLA MD Location:UROLOGY Appointment Type:URO OV Future Scheduled Tests Laboratory* Basic Metabolic Panel 07/19/22 * Basic Metabolic Panel 02/06/22 * Prostate Specific Antigen 07/19/22 * Complete Blood Count 04/29/21 [facility] Evaluation + Plan note Future Appointments Appointment Date:03/09/2022 09:30:00 AM Scheduled Provider:MARK SMITH DO Location:[facility] Appointment Type:PC OV Appointment Date:06/09/2022 01:00:00 PM Scheduled Provider:LENARD ASENCIO MD Location:[facility] Appointment Type:HEM ONC OV Follow Up Appointment Date:07/04/2022 09:30:00 AM Scheduled Provider:MARK SMITH DO Location:[facility] Appointment Type:PC OV Appointment Date:07/24/2022 11:20:00 AM Scheduled Provider:ANA VILLA MD Location:UROLOGY Appointment Type:URO OV Future Scheduled Tests Laboratory* Basic Metabolic Panel 07/19/22 * Prostate Specific Antigen 07/19/22 * Complete Blood Count 04/29/21 [facility] Evaluation + Plan note Future Appointments Appointment Date:04/14/2022 10:00:00 AM Scheduled Provider: Location:[facility] Appointment Type:VL AOH - Renal Artery US/Doppler Complet Appointment Date:04/14/2022 11:00:00 AM Scheduled Provider: Location:[facility] Appointment Type:CV Procedure - AOH Echo Appointment Date:04/17/2022 09:00:00 AM Scheduled Provider: Location:[facility] Appointment Type:CV Nurse BP Check Appointment Date:05/03/2022 09:00:00 AM Scheduled Provider:DEXTER ROLDAN Location:[facility] Appointment Type:CV OV Appointment Date:06/09/2022 01:00:00 PM Scheduled Provider:LENARD ASENCIO MD Location:[facility] Appointment Type:HEM ONC OV Follow Up Appointment Date:06/13/2022 09:00:00 AM Scheduled Provider:MARK SMITH DO Location:[facility] Appointment Type:PC OV Appointment Date:07/04/2022 09:30:00 AM Scheduled Provider:MARK SMITH DO Location:[facility] Appointment Type:PC OV Appointment Date:07/24/2022 11:20:00 AM Scheduled Provider:ANA VILLA MD Location:UROLOGY Appointment Type:URO OV Diagnostic Tests Pending * Aldosterone 04/03/22 * Renin, Plasma 04/03/22 Future Scheduled Tests Laboratory* Basic Metabolic Panel 07/19/22 * Prostate Specific Antigen 07/19/22 * Complete Blood Count 04/29/21 [facility] Evaluation + Plan note Future Appointments Appointment Date:04/17/2022 09:00:00 AM Scheduled Provider: Location:[facility] Appointment Type:CV Nurse BP Check Appointment Date:05/03/2022 09:00:00 AM Scheduled Provider:DEXTER ROLDAN Location:[facility] Appointment Type:CV OV Appointment Date:06/09/2022 01:00:00 PM Scheduled Provider:LENARD ASENCIO MD Location:[facility] Appointment Type:HEM ONC OV Follow Up Appointment Date:06/13/2022 09:15:00 AM Scheduled Provider:KEVON MACKEY DO Location:[facility] Appointment Type:PC OV Appointment Date:07/04/2022 09:30:00 AM Scheduled Provider:MARK SMITH DO Location:[facility] Appointment Type:PC OV Appointment Date:07/24/2022 11:20:00 AM Scheduled Provider:ANA VILLA MD Location:UROLOGY Appointment Type:URO OV Future Scheduled Tests Laboratory* Basic Metabolic Panel 07/19/22 * Prostate Specific Antigen 07/19/22 * Complete Blood Count 04/29/21 [facility] Evaluation + Plan note Future Appointments Appointment Date:06/13/2022 09:00:00 AM Scheduled Provider:KEVON MACKEY DO Location:[facility] Appointment Type:PC OV Appointment Date:07/04/2022 09:30:00 AM Scheduled Provider:MARK SMITH DO Location:[facility] Appointment Type:PC OV Appointment Date:07/24/2022 11:20:00 AM Scheduled Provider:ANA VILLA MD Location:UROLOGY Appointment Type:URO OV Appointment Date:08/07/2022 09:00:00 AM Scheduled Provider:DEXTER ROLDAN Location:[facility] Appointment Type:CV OV Appointment Date:06/15/2023 01:00:00 PM Scheduled Provider:LENARD ASENCIO MD Location:[facility] Appointment Type:HEM ONC OV Follow Up Future Scheduled Tests Laboratory* Basic Metabolic Panel 07/19/22 * Ferritin 06/09/23 * Lactate Dehydrogenase 06/09/23 * Prostate Specific Antigen 07/19/22 * Complete Blood Count 06/09/23 * Iron Studies 06/09/23 * Complete Metabolic Panel 06/09/23 [facility] evaluation + Plan note Future Appointments Appointment Date:08/14/2022 09:30:00 AM Scheduled Provider:DEXTER ROLDAN Location:[facility] Appointment Type:Online OV CVC Appointment Date:01/01/2023 08:30:00 AM Scheduled Provider:KEVON MACKEY DO Location:[facility] Appointment Type:PC Wellness Annual Appointment Date:02/02/2023 08:20:00 AM Scheduled Provider:ANA VILLA MD Location:UROLOGY Appointment Type:URO OV Prostate Cancer Follow Up Appointment Date:06/15/2023 01:00:00 PM Scheduled Provider:LENARD ASENCIO MD Location:[facility] Appointment Type:HEM ONC OV Follow Up Future Scheduled Tests Laboratory* Ferritin 06/09/23 * Lactate Dehydrogenase 06/09/23 * Prostate Specific Antigen 02/03/23 * Complete Blood Count 06/09/23 * Iron Studies 06/09/23 * Complete Metabolic Panel 06/09/23 [facility] Evaluation + Plan note Future Appointments Appointment Date:01/01/2023 08:30:00 AM Scheduled Provider:KEVON MACKEY DO Location:[facility] Appointment Type:PC Wellness Annual Appointment Date:02/02/2023 08:20:00 AM Scheduled Provider:ANA VILLA MD Location:UROLOGY Appointment Type:URO OV Prostate Cancer Follow Up Appointment Date:02/26/2023 09:00:00 AM Scheduled Provider:DEXTER ROLDAN Location:[facility] Appointment Type:CV OV Appointment Date:06/15/2023 01:00:00 PM Scheduled Provider:LENARD ASENCIO MD Location:[facility] Appointment Type:HEM ONC OV Follow Up Future Scheduled Tests Laboratory* Ferritin 06/09/23 * Lactate Dehydrogenase 06/09/23 * Prostate Specific Antigen 02/03/23 * Complete Blood Count 06/09/23 * Iron Studies 06/09/23 * Complete Metabolic Panel 06/09/23 [facility] Evaluation + Plan note Future Appointments Appointment Date:02/26/2023 09:00:00 AM Scheduled Provider:DEXTER ROLDAN Location:[facility] Appointment Type:CV OV Appointment Date:03/09/2023 08:20:00 AM Scheduled Provider:ANA VILLA MD Location:UROLOGY Appointment Type:URO OV Prostate Cancer Follow Up Appointment Date:06/15/2023 01:00:00 PM Scheduled Provider:LENARD ASENCIO MD Location:[facility] Appointment Type:HEM ONC OV Follow Up Appointment Date:01/02/2024 08:30:00 AM Scheduled Provider:KEVON MACKEY DO Location:[facility] Appointment Type:PC Wellness Annual [facility] Evaluation + Plan note Future Appointments Appointment Date:03/07/2023 01:20:00 PM Scheduled Provider:ANA VILLA MD Location:UROLOGY Appointment Type:URO OV Prostate Cancer Follow Up Appointment Date:06/15/2023 01:00:00 PM Scheduled Provider:LENARD ASENCIO MD Location:[facility] Appointment Type:HEM ONC OV Follow Up Appointment Date:01/02/2024 08:30:00 AM Scheduled Provider:KEVON MACKEY DO Location:[facility] Appointment Type:PC Wellness Annual Appointment Date:03/03/2024 09:00:00 AM Scheduled Provider:DEXTER ROLDAN Location:[facility] Appointment Type:CV OV [facility] Evaluation + Plan note Future Appointments Appointment Date:06/15/2023 01:00:00 PM Scheduled Provider:LENARD ASENCIO MD Location:[facility] Appointment Type:HEM ONC OV Follow Up Appointment Date:01/02/2024 08:30:00 AM Scheduled Provider:KEVON MACKEY DO Location:[facility] Appointment Type:PC Wellness Annual Appointment Date:03/03/2024 09:00:00 AM Scheduled Provider:DEXTER ROLDAN Location:[facility] Appointment Type:CV OV Appointment Date:03/07/2024 09:40:00 AM Scheduled Provider:ANA VILLA MD Location:UROLOGY Appointment Type:URO OV Future Scheduled Tests Laboratory* Prostate Specific Antigen 03/07/24 [facility] Evaluation + Plan note Future Appointments Appointment Date:01/02/2024 08:30:00 AM Scheduled Provider:KEVON MACKEY DO Location:[facility] Appointment Type:PC Wellness Annual Appointment Date:03/03/2024 09:00:00 AM Scheduled Provider:DEXTER ROLDAN Location:[facility] Appointment Type:CV OV Appointment Date:03/07/2024 09:40:00 AM Scheduled Provider:ANA VILLA MD Location:UROLOGY Appointment Type:URO OV Appointment Date:06/16/2024 01:15:00 PM Scheduled Provider:LENARD ASENCIO MD Location:[facility] Appointment Type:HEM ONC OV Follow Up Future Scheduled Tests Laboratory* Ferritin 06/15/24 * Prostate Specific Antigen 03/07/24 * Complete Blood Count 06/15/24 * Iron Studies 06/15/24 * Complete Metabolic Panel 06/15/24 [facility] Evaluation + Plan note Future Appointments Appointment Date:03/03/2024 09:00:00 AM Scheduled Provider:DEXTER ROLDAN Location:[facility] Appointment Type:CV OV Appointment Date:03/07/2024 09:40:00 AM Scheduled Provider:ANA VILLA MD Location:UROLOGY Appointment Type:URO OV Appointment Date:04/09/2024 09:00:00 AM Scheduled Provider:KEVON MACKEY DO Location:[facility] Appointment Type:PC OV Appointment Date:06/16/2024 01:15:00 PM Scheduled Provider:LENARD ASENCIO MD Location:[facility] Appointment Type:HEM ONC OV Follow Up Appointment Date:12/31/2024 08:30:00 AM Scheduled Provider:KEVON MACKEY DO Location:[facility] Appointment Type:PC Wellness Annual Future Scheduled Tests Laboratory* TSH with Reflex to FT4 01/01/25 * Ferritin 06/15/24 * Prostate Specific Antigen 01/01/25 * Prostate Specific Antigen 03/07/24 * Vitamin B12 Level 01/01/25 * Complete Blood Count 06/15/24 * Complete Blood Count 01/01/25 * Lipid Profile 01/01/25 * Iron Studies 06/15/24 * Albumin/Creatinine Ratio, Random Urine 01/01/25 * Vitamin D Level 01/01/25 * Complete Metabolic Panel 06/15/24 * Complete Metabolic Panel 01/01/25 [facility] Evaluation + Plan note Future Appointments Appointment Date:03/07/2024 09:40:00 AM Scheduled Provider:ANA VILLA MD Location:UROLOGY Appointment Type:URO OV Appointment Date:04/09/2024 09:00:00 AM Scheduled Provider:KEVON MACKEY DO Location:[facility] Appointment Type:PC OV Appointment Date:06/16/2024 01:15:00 PM Scheduled Provider:LENARD ASENCIO MD Location:[facility] Appointment Type:HEM ONC OV Follow Up Appointment Date:12/31/2024 08:30:00 AM Scheduled Provider:KEVON MACKEY DO Location:[facility] Appointment Type:PC Wellness Annual Appointment Date:03/03/2025 09:00:00 AM Scheduled Provider:DEXTER ROLDAN Location:[facility] Appointment Type:CV OV Future Scheduled Tests Laboratory* TSH with Reflex to FT4 01/01/25 * Ferritin 06/15/24 * Prostate Specific Antigen 01/01/25 * Vitamin B12 Level 01/01/25 * Complete Blood Count 06/15/24 * Complete Blood Count 01/01/25 * Lipid Profile 01/01/25 * Iron Studies 06/15/24 * Albumin/Creatinine Ratio, Random Urine 01/01/25 * Vitamin D Level 01/01/25 * Complete Metabolic Panel 06/15/24 * Complete Metabolic Panel 01/01/25 [facility] Evaluation + Plan note Future Appointments Appointment Date:04/09/2024 09:00:00 AM Scheduled Provider:KEVON MACKEY DO Location:[facility] Appointment Type:PC OV Appointment Date:06/16/2024 01:15:00 PM Scheduled Provider:LENARD ASENCIO MD Location:[facility] Appointment Type:HEM ONC OV Follow Up Appointment Date:12/31/2024 08:30:00 AM Scheduled Provider:KEVON MACKEY DO Location:[facility] Appointment Type:PC Wellness Annual Appointment Date:03/03/2025 09:00:00 AM Scheduled Provider:DEXTER ROLDAN Location:[facility] Appointment Type:CV OV Appointment Date:03/09/2025 08:10:00 AM Scheduled Provider:ANA VILLA MD Location:UROLOGY Appointment Type:URO OV Future Scheduled Tests Laboratory* TSH with Reflex to FT4 01/01/25 * Ferritin 06/15/24 * Prostate Specific Antigen 03/07/25 * Prostate Specific Antigen 01/01/25 * Vitamin B12 Level 01/01/25 * Complete Blood Count 06/15/24 * Complete Blood Count 01/01/25 * Lipid Profile 01/01/25 * Iron Studies 06/15/24 * Albumin/Creatinine Ratio, Random Urine 01/01/25 * Vitamin D Level 01/01/25 * Complete Metabolic Panel 06/15/24 * Complete Metabolic Panel 01/01/25 [facility] Evaluation noteNo assessment information available [facility] Work Phone: Evaluation note* Diagnosis Acute pain of left knee- Primary Knee swelling Effusion of lower leg joint documented in this encounter [facility] note* Diagnosis Acute pain of left knee- Primary Knee swelling Effusion of lower leg joint S/P total knee arthroplasty, left documented in this encounter [facility] note* Diagnosis Knee swelling- Primary Effusion of lower leg joint Pain due to internal orthopedic prosthetic devices, implants and grafts, initial encounter ([facility]) documented in this encounter [facility] note* Diagnosis Knee swelling- Primary Effusion of lower leg joint Pain due to internal orthopedic prosthetic devices, implants and grafts, initial encounter ([facility]) S/P total knee arthroplasty, left documented in this encounter [facility] note* Diagnosis Onset Date Resolution Status Daytime hypersomnia acute Restless leg syndrome acute [facility] Work Phone: Evaluation note* Diagnosis Pain due to internal orthopedic prosthetic devices, implants and grafts, initial encounter ([facility]) documented in this encounter [facility] note* Diagnosis Effusion of left knee- Primary Effusion of lower leg joint Pain due to internal orthopedic prosthetic devices, implants and grafts, initial encounter ([facility]) documented in this encounter [facility] note* Diagnosis Joint laxity of left knee- Primary Effusion of left knee Effusion of lower leg joint Pain due to internal orthopedic prosthetic devices, implants and grafts, initial encounter ([facility]) S/P total knee arthroplasty, left Joint laxity of left knee Effusion of left knee Effusion of lower leg joint Pain due to internal orthopedic prosthetic devices, implants and grafts, initial encounter ([facility]) S/P total knee arthroplasty, left [facility]* Diagnosis Pain due to internal orthopedic prosthetic devices, implants and grafts, initial encounter ([facility])- Primary Joint laxity of left knee Effusion of left knee Effusion of lower leg joint Pain due to internal orthopedic prosthetic devices, implants and grafts, initial encounter ([facility]) S/P total knee arthroplasty, left [facility]* Diagnosis Preoperative examination- Primary Preoperative examination, unspecified Migraine without aura and without status migrainosus, not intractable Migraine without aura, without mention of intractable migraine without mention of status migrainosus Primary hypertension Unspecified essential hypertension Gastroesophageal reflux disease, unspecified whether esophagitis present Splenomegaly Alcoholic cirrhosis of liver without ascites (HCC) Alcoholic cirrhosis of liver Leukopenia, unspecified type Thrombocytopenia ([facility]) Thrombocytopenia, unspecified History of prostate cancer Personal history of malignant neoplasm of prostate Joint laxity of left knee Effusion of left knee Effusion of lower leg joint Pain due to internal orthopedic prosthetic devices, implants and grafts, initial encounter ([facility]) S/P total knee arthroplasty, left [facility]* Diagnosis Chronic pain of left knee- Primary Pain in joint, lower leg [facility]* Diagnosis S/P revision of total knee, left [facility]* Diagnosis 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 Stiffness of left knee [facility]* Diagnosis Status post revision of total replacement of left knee [facility] 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 [facility] Knee swelling [facility] of lower [facility] Effusion of left knee Effusion of lower leg joint [facility] Preoperative examination- Primary Preoperative examination, unspecified Migraine without aura and without status migrainosus, not intractable Migraine without aura, without mention of intractable migraine without mention of status migrainosus Primary hypertension Unspecified essential hypertension Gastroesophageal reflux disease, unspecified whether esophagitis present Splenomegaly Alcoholic cirrhosis of liver without ascites (HCC) Alcoholic cirrhosis of liver Leukopenia, unspecified type Thrombocytopenia (HCC) Thrombocytopenia, unspecified History of prostate cancer Personal history of malignant neoplasm of prostate 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 [facility]* Diagnosis Preoperative examination- Primary Preoperative examination, unspecified Migraine without aura and without status migrainosus, not intractable Migraine without aura, without mention of intractable migraine without mention of status migrainosus Primary hypertension Unspecified essential hypertension Gastroesophageal reflux disease, unspecified whether esophagitis present Splenomegaly Alcoholic cirrhosis of liver without ascites (HCC) Alcoholic cirrhosis of liver Leukopenia, unspecified type Thrombocytopenia (HCC) Thrombocytopenia, unspecified History of prostate cancer Personal history of malignant neoplasm of prostate Left knee pain, unspecified chronicity documented in this encounter [facility] note* Diagnosis Preoperative examination- Primary Preoperative examination, unspecified Migraine without aura and without status migrainosus, not intractable Migraine without aura, without mention of intractable migraine without mention of status migrainosus Primary hypertension Unspecified essential hypertension Gastroesophageal reflux disease, unspecified whether esophagitis present Splenomegaly Alcoholic cirrhosis of liver without ascites (HCC) Alcoholic cirrhosis of liver Leukopenia, unspecified type Thrombocytopenia (HCC) Thrombocytopenia, unspecified History of prostate cancer Personal history of malignant neoplasm of prostate Chronic pain of left knee Pain in joint, lower leg documented in this encounter [facility] note* Diagnosis Preoperative examination- Primary Preoperative examination, unspecified Migraine without aura and without status migrainosus, not intractable Migraine without aura, without mention of intractable migraine without mention of status migrainosus Primary hypertension Unspecified essential hypertension Gastroesophageal reflux disease, unspecified whether esophagitis present Splenomegaly Alcoholic cirrhosis of liver without ascites (HCC) Alcoholic cirrhosis of liver Leukopenia, unspecified type Thrombocytopenia (HCC) Thrombocytopenia, unspecified History of prostate cancer Personal history of malignant neoplasm of prostate Chronic pain of left knee Pain in joint, lower leg [facility] Diagnosis Left knee pain, unspecified chronicity Preoperative examination- Primary Preoperative examination, unspecified Migraine without aura and without status migrainosus, not intractable Migraine without aura, without mention of intractable migraine without mention of status migrainosus Primary hypertension Unspecified essential hypertension Gastroesophageal reflux disease, unspecified whether esophagitis present Splenomegaly Alcoholic cirrhosis of liver without ascites (HCC) Alcoholic cirrhosis of liver Leukopenia, unspecified type Thrombocytopenia (HCC) Thrombocytopenia, unspecified History of prostate cancer Personal history of malignant neoplasm of prostate documented in this encounter [facility] course Narrative No data available for this section [facility] Hospital Discharge instructions No data available for this section [facility] Note* DARLEEN JACKSON MD: SIGN, VERIFY Event Display: VL Renal Artery US/Doppler Complete [facility] Progress note No data available for this section [facility] Reason for referral (narrative)* Diagnostic Procedure Only (Routine) - Pending Review Specialty Diagnoses / Procedures Referred By Guillermo duong Referred To Contact MOLECULAR & FUNCTIONAL IMAGING Diagnoses Pain due to internal orthopedic prosthetic devices, implants and grafts, initial encounter ([facility]) Procedures NM BONE 3 PHASE BONE &/JOINT IMAGING [place] [address] [place] [address] [facility] [address] [place] [address] Referral ID Status Reason Start Date Expiration Date Visits Requested Visits Authorized [id number] Pending Review Auto-Generat ed Referral 12/28/2021 01/27/2023 1 1 * Diagnostic Procedure Only (Routine) - Pending Review Specialty Diagnoses / Procedures Referred By Guillermo duong Referred To Contact XR IMAGING Diagnoses Knee swelling Procedures XR KNEE POST OP 3V AP/LAT/MERCHANT LEFT RADIOLOGIC EXAMINATION KNEE 3 [place] [address] [place] [id number] Xr Imaging Referral ID Status Reason Start Date Expiration Date Visits Requested Visits Authorized [id number] Pending Review Auto-Generat ed Referral 12/28/2021 01/27/2023 1 1 [facility] for referral (narrative)* Diagnostic Procedure Only (Routine) - Closed Specialty Diagnoses / Procedures Referred By Contac t Referred To Contact MOLECULAR & FUNCTIONAL IMAGING Diagnoses Pain due to internal orthopedic prosthetic devices, implants and grafts, initial encounter (HCC) Procedures NM BONE 3 PHASE BONE &/JOINT IMAGING 3 [place] [address] [place] [address] Molecular [facility] Functional Imaging [address] [place] [address] Referral ID Status Reason Start Date Expiration Date V isits Requested Visits Authorized [id number] Closed Auto-Generate d Referral 01/02/2022 06/03/2022 1 1 [facility] for referral (narrative)* Diagnostic Procedure Only (Routine) - Closed Specialty Diagnoses / Procedures Referred By Contac t Referred To Contact XR IMAGING Diagnoses Effusion of left knee Procedures XR KNEE POST OP 3V AP/LAT/MERCHANT LEFT RADIOLOGIC EXAMINATION KNEE 3 VIEWS Ge Maguire MD, PhD [address] [place] [address] Xr Imaging Referral ID Status Reason Start Date Expiration Date V isits Requested Visits Authorized [id number] Closed Auto-Generate d Referral 10/02/2022 06/03/2023 1 1 [facility] for referral (narrative)* Outpatient Procedure (Routine) - Closed Specialty Diagnoses / Procedures Referred By Contac t Referred To Contact [facility] Diagnoses Preoperative examination Procedures ECG COMPLETE ECG ROUTINE ECG W/LEAST 12 LDS W/I&R Loulou Taylor PA-C [address] [address] [facility] [place] [address] [place] [address] Referral ID Status Reason Start Date Expiration Date V isits Requested Visits Authorized [id number] Closed Auto-Generate d Referral 11/06/2022 11/06/2023 1 1 [facility] for referral (narrative)* Diagnostic Procedure Only (Routine) - Authorized Specialty Diagnoses / Procedures Referred By Contac t Referred To Contact XR IMAGING Diagnoses Chronic pain of left knee Procedures XR KNEE LIMITED 2V AP/LAT LEFT RADIOLOGIC EXAMINATION KNEE 1/2 VIEWS Mateo Sawant APRN.CNP [address] [address] Xr Imaging Referral ID Status Reason Start Date Expiration Date V isits Requested Visits Authorized [id number] Authorized 12/07/2022 06/03/2023 1 1 [facility] for referral (narrative)* Diagnostic Procedure Only (Routine) - Closed Specialty Diagnoses / Procedures Referred By Contac t Referred To Contact XR IMAGING Diagnoses Knee swelling Procedures XR KNEE POST OP 3V AP/LAT/MERCHANT LEFT RADIOLOGIC EXAMINATION KNEE 3 [place] [address] [place] [address] [place] [address] Referral ID Status Reason Start Date Expiration Date V isits Requested Visits Authorized [id number] Closed Auto-Generate d Referral 12/28/2021 06/03/2022 1 1 [facility] for referral (narrative)* Diagnostic Procedure Only (Routine) - Closed Specialty Diagnoses / Procedures Referred By Contac t Referred To Contact XR IMAGING Diagnoses Effusion of left knee Procedures XR KNEE POST OP 3V AP/LAT/MERCHANT LEFT RADIOLOGIC EXAMINATION KNEE 3 VIEWS Ge Maguire MD [address] [place] [address] [place] [address] Referral ID Status Reason Start Date Expiration Date V isits Requested Visits Authorized [id number] Closed Auto-Generate d Referral 10/02/2022 06/03/2023 1 1 [facility] for referral (narrative)* Diagnostic Procedure Only (Routine) - Closed Specialty Diagnoses / Procedures Referred By Contac t Referred To Contact XR IMAGING Diagnoses Left knee pain, unspecified chronicity Procedures XR KNEE POST OP 3V AP/LAT/MERCHANT LEFT RADIOLOGIC EXAMINATION KNEE 3 VIEWS Mateo Sawant APRN.CNP [address] [place] [address] [place] [address] Referral ID Status Reason Start Date Expiration Date V isits Requested Visits Authorized [id number] Closed Auto-Generate d Referral 01/31/2024 06/03/2024 1 1 T [facility] for referral (narrative)* Diagnostic Procedure Only (Routine) - Closed Specialty Diagnoses / Procedures Referred By Contac t Referred To Contact XR IMAGING Diagnoses Chronic pain of left knee Procedures XR KNEE POST OP 3V AP/LAT/MERCHANT LEFT RADIOLOGIC EXAMINATION KNEE 3 VIEWS Mateo Sawant APRN.CNP [address] [place] [address] [place] [address] Referral ID Status Reason Start Date Expiration Date V isits Requested Visits Authorized [id number] Closed Auto-Generate d Referral 02/13/2023 03/13/2024 1 1 T [facility] for referral (narrative)* Diagnostic Procedure Only (Routine) - Closed Specialty Diagnoses / Procedures Referred By Contac t Referred To Contact XR IMAGING Diagnoses Chronic pain of left knee Procedures XR KNEE POST OP 3V AP/LAT/MERCHANT LEFT RADIOLOGIC EXAMINATION KNEE 3 VIEWS Mateo Sawant APRN.CNP [address] [place] [address] [place] [address] Referral ID Status Reason Start Date Expiration Date V isits Requested Visits Authorized [id number] Closed Auto-Generate d Referral 12/26/2022 01/24/2024 1 1 [facility] for referral (narrative)* Diagnostic Procedure Only (Routine) - Closed Specialty Diagnoses / Procedures Referred By Contac t Referred To Contact XR IMAGING Diagnoses Chronic pain of left knee Procedures XR KNEE LIMITED 2V AP/LAT LEFT RADIOLOGIC EXAMINATION KNEE 1/2 VIEWS Mateo Sawant APRN.CNP [address] [place] [address] [place] [address] Referral ID Status Reason Start Date Expiration Date Visits Re quested Visits Authorized [id number] Closed 12/07/2022 06/03/2023 1 1 [facility] for referral (narrative)* Diagnostic Procedure Only (Routine) - Closed Specialty Diagnoses / Procedures Referred By Contac t Referred To Contact XR IMAGING Diagnoses Left knee pain, unspecified chronicity Procedures XR KNEE GENERAL 4V AP BOTH/PA BOTH/LAT/MERC LEFT RADIOLOGIC EXAM KNEE COMPLETE 4/MORE VIEWS Ge Maguire MD [address] [place] [address] [place] [address] Referral ID Status Reason Start Date Expiration Date V isits Requested Visits Authorized [id number] Closed Auto-Generated Referral Patient Cleared - INN Insurance Found 10/25/2021 11/24/2022 1 1 T [facility] for referral (narrative)No reason for referral [facility] Work Phone: Reason for visit Narrative* Diagnostic Procedure Only (Routine) - Closed Specialty Diagnoses / Procedures Referred By Contac t Referred To Contact MOLECULAR & FUNCTIONAL IMAGING Diagnoses Pain due to internal orthopedic prosthetic devices, implants and grafts, initial encounter ([facility]) Procedures NM BONE 3 PHASE BONE &/JOINT IMAGING 3 [place] [address] [place] [id number] Molecular [facility] Functional Imaging [address] [place] [address] Referral ID Status Reason Start Date Expiration Date V isits Requested Visits Authorized [id number] Closed Auto-Generate d Referral 01/02/2022 06/03/2022 1 1 [facility] for visit Narrative* Diagnostic Procedure Only (Routine) - Closed Specialty Diagnoses / Procedures Referred By Contac t Referred To Contact XR IMAGING Diagnoses Knee swelling Procedures XR KNEE POST OP 3V AP/LAT/MERCHANT LEFT RADIOLOGIC EXAMINATION KNEE 3 [place] [address] [place] [address] [place] [address] Referral ID Status Reason Start Date Expiration Date V isits Requested Visits Authorized [id number] Closed Auto-Generate d Referral 12/28/2021 06/03/2022 1 1 [facility] for visit Narrative* Diagnostic Procedure Only (Routine) - Closed Specialty Diagnoses / Procedures Referred By Contac t Referred To Contact XR IMAGING Diagnoses Left knee pain, unspecified chronicity Procedures XR KNEE POST OP 3V AP/LAT/MERCHANT LEFT RADIOLOGIC EXAMINATION KNEE 3 VIEWS Mateo Sawant, NATY.RADIOPHONE OPERATOR [address] [place] [address] [place] [address] Referral ID Status Reason Start Date Expiration Date V isits Requested Visits Authorized [id number] Closed Auto-Generate d Referral 01/31/2024 06/03/2024 1 1 [facility] for visit Narrative* Diagnostic Procedure Only (Routine) - Closed Specialty Diagnoses / Procedures Referred By Contac t Referred To Contact XR IMAGING Diagnoses Chronic pain of left knee Procedures XR KNEE LIMITED 2V AP/LAT LEFT RADIOLOGIC EXAMINATION KNEE 1/2 VIEWS Mateo Sawant, SPLITTER MACHINE.RADIOPHONE OPERATOR [address] [address] [place] [address] Referral ID Status Reason Start Date Expiration Date Visits Re quested Visits Authorized [id number] Closed 12/07/2022 06/03/2023 1 1 [facility] Summary Purpose Family History No Family History Records Found Relationship Condition Age at Onset Recorded Date/T rio Not Specified Alcoholism Unknown mother Arthritis Unknown Hypertension Unknown father Coronary artery disease Unknown Cardiac disease Unknown brother Malignant neoplasm Unknown Advance Directives No Advanced Directives Records Found Advance Directive Response Recorded Date/ Time Living Will No August 13, 2017 10:06am Power of Economic Consultant Yes August 13 10:06am Documents on File Type Date Recorded Patient Ap Operator Expl anation Advance Directive(s) 07/09/2018 10:31 AM Advance Directive(s) 11/21/2016 10:58 AM Documents on File Type Date Recorded Patient Ap Operator Expl anation Advance Directive(s) 07/09/2018 10:31 AM Advance Directive(s) 11/21/2016 10:58 AM Advance Directive Response Recorded Date/ Time Living Will No August 13, 2017 9:06am Power of Economic Consultant Yes August 13 9:06am Advance Directive Response Recorded Date/ Time Living Will No February 29, 2024 9:30am Do you have a Healthcare Power of Economic Consultant? Yes February 29, 2024 9:30am Living Will Yes July 17, 025 3:55pm Do you have a Healthcare Power of Economic Consultant? Yes July 17, 2024 3:55pm Name of Medical Power of Economic Consultant POA Spouse July 17, 2024 3:55pm Advance Directive Response Recorded Date/ Time Living Will Yes July 17, 025 3:55pm Do you have a Healthcare Power of Economic Consultant? Yes July 17, 2024 3:55pm Name of Medical Power of Economic Consultant POA Spouse July 17, 2024 3:55pm Chief Complaint and Reason for Visit Chief Complaint LEXIS; CONF 4/29 & 5/3 ANS HUNG UP Chief Complaint LEXIS; CONF 4/29 & 5/3 ANS HUNG UP Sleep problems ATTN LIVER CIRRHOSIS Reason for Visit Daytime hypersomnia Restless leg syndrome Chief Complaint PREOP PREOP Chief Complaint Admit Date 3 M FU May 13, 2024 8:06am CIRRHOSIS- including spleen, R/O ascites June 13, 2024 7:08am EST (SELF) July 18, 2024 1:23pm BLOOD FLOW August 11, 2024 8:0 8am HTN August 12, 2024 6:2 4am HYPERTENSION August 21, 2024 1:0 5pm Reason for Visit Admit Date Alcoholic cirrhosis of liver May 132023 8:06am Dyslipidemia May 13, 2024 8:06am Hypertension July 18, 2024 1:23pm Cirrhosis July 22, 2024 10:35am 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 July 22, 2024 10:35am Chief Complaint Admit Date CIRRHOSIS- including spleen, R/O ascites June 13, 2024 7:08am EST (SELF) July 18, 2024 1:23pm BLOOD FLOW August 11, 2024 8:0 8am HTN August 12, 2024 6:2 4am HYPERTENSION August 21, 2024 1:0 5pm 4 M FU September 10, 2024 8:08 am E ORDER October 03, 2024 9:58am Reason for Visit Admit Date Hypertension July 18, 2024 1:23pm 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 July 22, 2024 10:35am Cirrhosis July 22, 2024 10:35am 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 September 10, 2024 8:08am Alcoholic cirrhosis of liver September 10, 2024 8:08am Dyslipidemia September 10, 2024 8:08 am Chief Complaint Admit Date EST (SELF) July 18, 2024 1:23pm BLOOD FLOW August 11, 2024 8:0 8am HTN August 12, 2024 6:2 4am HYPERTENSION August 21, 2024 1:0 5pm 4 M FU September 10, 2024 8:08 am E ORDER October 03, 2024 9:58am 3 M FU October 16, 2024 12:05 pm Medications Administered Section Inactive Administered Medications - up to 3 most recent administrations Medication Order MAR Action Action Date Dose Rate Site lidocaine (PF) 10 mg/mL (1 %) 3 mL injection (XYLOCAINE) 3 mL, Injection - FOR ORTHO USE ONLY, ONE TIME INJECTION, 1 dose, Starting on Sun12/30/21 at 1316, Until Sun12/30/21 at 1316 Given 12/30/2021 1:16 PM EDT 3 mL Reason for Referral Specialty Diagnoses / Procedures Referred By Guillermo t Referred To Contact [facility] Diagnoses Status post revision of total replacement of left knee Stiffness of left knee Procedures CONSULT TO PHYSICAL THERAPY PHYSICAL THERAPY EVALUATION HIGH COMPLEX 45 MINS Mateo Sawant APRN.RADIOPHONE OPERATOR [address] [facility], [address] [place] [address] [facility] [place] [address] [place] [address] Referral ID Status Reason Start Date Expiration Date Visits Requested Visits Authorized [id number] Pending Review Auto-Generat ed Referral 12/07/2022 12/07/2023 1 1 Additional Source Comments (unrecognized sect ion and content) No Status Records FoundNo Status Records FoundNo Status Records FoundNo Status Records FoundNo Status Records FoundNo Status Records FoundNo Status Records FoundNo Status Records Found INFORMATION SOURCE (unrecogn ized section and content) DATE CREATED AUTHOR 07/23/2018 [facility] DATE CREATED AUTHOR AUTHOR'S ORGANIZ ATION 07/23/2018 [facility] DATE CREATED AUTHOR AUTHOR'S ORGANIZ ATION 01/04/2024 [facility] DATE CREATED AUTHOR AUTHOR'S ORGANIZ ATION 02/05/[address] [facility] DATE CREATED AUTHOR AUTHOR'S ORGANIZ ATION 02/05/2024 [facility] DATE CREATED AUTHOR AUTHOR'S ORGANIZ ATION 03/06/2024 [facility] DATE CREATED AUTHOR AUTHOR'S ORGANIZ ATION 04/30/2024 [facility] DATE CREATED AUTHOR AUTHOR'S ORGANIZ ATION 11/16/2024 [facility] Care Team (unrecognized sect ion and content) Engine Boss Relationship Specialty Start Date End Date Mark Smith, DO [address] [place] [address] PCP - General Family Practice 03/19/18 Engine Boss Relationship Specialty Start Date End Date Mark Smith, [place] [address] PCP - General Family Practice 03/19/18 Engine Boss Relationship Specialty Start Date End Date Mark Smith, [place] [address] PCP - General Family Practice 03/19/18 Engine Boss Relationship Specialty Start Date End Date Mark Smith, DO [address] [place] [address] PCP - General Family Practice 03/19/18 Engine Boss Relationship Specialty Start Date End Date Mark Smith, DO [address] [place] [address] PCP - General Family Practice 03/19/18 Engine Boss Relationship Specialty Start Date End Date Mark Smith, DO [address] [place] [address] PCP - General Family Practice 03/19/18 Engine Boss Relationship Specialty Start Date End Date Mark Smith, DO [address] [place] [address] PCP - General Family Medicine 03/19/18 Engine Boss Relationship Specialty Start Date End Date Mark Smith, DO [address] [place] [address] PCP - General Family Medicine 03/19/18 Engine Boss Relationship Specialty Start Date End Date Kevon Mackey DO [address] [place] [address] PCP - General Family Medicine 10/10/22 Engine Boss Relationship Specialty Start Date End Date Kevon Mackey DO [address] [place] [address] PCP - General Family Medicine 10/10/22 Engine Boss Relationship Specialty Start Date End Date Kevon Mackey DO [address] [place] [address] PCP - General Family Medicine 10/10/22 Engine Boss Relationship Specialty Start Date End Date Kevon Mackey DO [address] [place] [address] PCP - General Family Medicine 10/10/22 Engine Boss Relationship Specialty Start Date End Date Kevon Mackey [address] [place] [address] PCP - General Family Medicine 10/10/22 Engine Boss Relationship Specialty Start Date End Date Kevon Mackey DO [address] [place] [address] PCP - General Family Medicine 10/10/22 Engine Boss Relationship Specialty Start Date End Date Kevon Mackey DO [address] [place] [address] PCP - General Family Medicine 10/10/22 Engine Boss Relationship Specialty Start Date End Date Kevon Mackey DO [address] [place] [address] PCP - General Family Medicine 10/10/22 Engine Boss Relationship Specialty Start Date End Date Kevon Mackey DO [address] [place] [address] PCP - General Family Medicine 10/10/22 Engine Boss Relationship Specialty Start Date End Date Kevon Mackey DO [address] [place] [address] PCP - General Family Medicine 10/10/22 Engine Boss Relationship Specialty Start Date End Date Kevon Mackey DO [address] [place] [address] PCP - General Family Medicine 10/10/22 Engine Boss Relationship Specialty Start Date End Date Kevon Mackey DO [address] [place] [address] PCP - General Family Medicine 10/10/22 Engine Boss Relationship Specialty Start Date End Date Mark Smith DO [address] [place] [address] PCP - General Family Medicine 03/19/18 10/09/22 Engine Boss Relationship Specialty Start Date End Date Mark Smith DO [address] [place] [address] PCP - General Family Medicine 03/19/18 10/09/22 Team Status: Active Member Role Status Dates Dr. Junito García MD Family Provider Active Dr. Kevon Mackey DO Primary Care Provider Active Team Status: Active Member Role Status Dates Dr. Kevon Mackey DO Primary Care Provider Active Dr. Jonathan Saleem MD Attending Provider Active Dr. Sarkis Mcdonald MD Referring Provider Active Team Status: Inactive Member Role Status Dates Dr. Sarkis Mcdonald MD Attending Provider, Referring Pr ovider Active Dr. Kevon Mackey DO Primary Care Provider Active Engine Boss Relationship Specialty Start Date End Date Kevon Mackey DO [address] [place] [address] PCP - General Family Medicine 10/10/22 Engine Boss Relationship Specialty Start Date End Date Kevon Mackey DO [address] [place] [address] PCP - General Family Medicine 10/10/22 Engine Boss Relationship Specialty Start Date End Date Kevon Mackey DO [address] [place] [address] PCP - General Family Medicine 10/10/22 Engine Boss Relationship Specialty Start Date End Date Mark Smith DO [address] [place] [address] PCP - General Family Medicine 03/19/18 10/09/22 Team Status: Active Member Role Status Dates Dr. Kevon Mackey DO Primary Care Provider Active Team Status: Inactive Member Role Status Dates Dr. Kevon Mackey DO Primary Care Provider Active Start: May 13, 2024 End: May 13, 2024 Dr. Kevon Mackey DO Referring Provider Active Start: May 13, 2024 End: May 13, 2024 Dr. Jasson Doan MD Attending Provider Active Start: May 13, 2024 End: May 13, 2024 Team Status: Inactive Member Role Status Dates Dr. Kevon Mackey DO Primary Care Provider Active Start: June 13, 2024 End: June 13, 2024 Dr. Jasson Doan MD Attending Provider Active Start: June 13, 2024 End: June 13, 2024 Dr. Jasson Doan MD Referring Provider Active Start: June 13, 2024 End: June 13, 2024 Team Status: Inactive Member Role Status Dates Dr. Kevon Mackey DO Primary Care Provider Active Start: July 18, 2024 End: July 18, 2024 Dr. Kevon Mackey DO Referring Provider Active Start: July 18, 2024 End: July 18, 2024 Dr. Jonathan Saleem MD Attending Provider Active S tart: July 18, 2024 End: July 18, 2024 Team Status: Inactive Member Role Status Dates Dr. Kevon Mackey DO Primary Care Provider Active Start: July 22, 2024 End: July 22, 2024 Dr. Kevon Mackey DO Referring Provider Active Start: July 22, 2024 End: July 22, 2024 Dr. Bismark Montoya DO Attending Provider Active Start: July 22, 2024 End: July 22, 2024 Team Status: Active Member Role Status Dates Dr. Kevon Mackey DO Primary Care Provider Active Start: July 22, 2024 Dr. Kevon Mackey DO Referring Provider Active Start: July 22, 2024 Dr. Bismark Montoya DO Attending Provider Active Start: July 22, 2024 Dr. Bismark Montoya DO Other Provider Active St art: July 22, 2024 Team Status: Active Member Role Status Dates Dr. Kevon Mackey DO Primary Care Provider Active Start: August 11, 2024 Dr. Jonathan Saleem MD Referring Provider Active S tart: August 11, 2024 Self Referred Attending Provider Active Start: 2024 Team Status: Active Member Role Status Dates Dr. Kevon Mackey DO Primary Care Provider Active Start: August 12, 2024 Dr. Jonathan Saleem MD Attending Provider Active S tart: August 12, 2024 Dr. Jonathan Saleem MD Referring Provider Active S tart: August 12, 2024 Team Status: Inactive Member Role Status Dates Dr. Kevon Mackey DO Primary Care Provider Active Start: August 21, 2024 End: August 21, 2024 Dr. Jonathan Saleem MD Attending Provider Active S tart: August 21, 2024 End: August 21, 2024 Dr. Jonathan Saleem MD Referring Provider Active S tart: August 21, 2024 End: August 21, 2024 Team Status: Active Member Role Status Dates Dr. Kevon Mackey DO Primary Care Provider Active Start: August 21, 2024 Dr. Jonathan Saleem MD Attending Provider Active S tart: August 21, 2024 Team Status: Inactive Member Role Status Dates Dr. Kevon Mackey DO Primary Care Provider Active Start: September 01, 2024 End: September 01, 2024 Dr. Jasson Doan MD Attending Provider Active Start: September 01, 2024 End: September 01, 2024 Dr. Jasson Doan MD Referring Provider Active Start: September 01, 2024 End: September 01, 2024 Team Status: Inactive Member Role Status Dates Dr. Kevon Mackey DO Primary Care Provider Active Start: September 10, 2024 End: September 10, 2024 Dr. Kevon Mackey DO Referring Provider Active Start: September 10, 2024 End: September 10, 2024 Dr. Jasson Doan MD Attending Provider Active Start: September 10, 2024 End: September 10, 2024 Team Status: Inactive Member Role Status Dates Dr. Kevon Mackey DO Primary Care Provider Active Start: October 03, 2024 End: October 03, 2024 Adalgisa Lee ANALYTICS DIRECTOR, ANALYTICS DIRECTOR-C Attending Provider Active Start: October 03, 2024 End: October 03, 2024 Adalgisa Lee ANALYTICS DIRECTOR, ANALYTICS DIRECTOR-C Referring Provider Active Start: October 03, 2024 End: October 03, 2024 Team Status: Inactive Member Role Status Dates Dr. Kevon Mackey DO Primary Care Provider Active Start: October 16, 2024 End: October 16, 2024 Dr. Kevon Mackey DO Referring Provider Active Start: October 16, 2024 End: October 16, 2024 Dr. Jonathan Saleem MD Attending Provider Active S tart: October 16, 2024 End: October 16, 2024 Goals (unrecognized section and content) Goals may be documented in a n alternate section Source Comments (unrecognize d section and content) In the event this informatio n is protected by the Federal Confidentiality of Alcohol and Drug Abuse Patient Records regulations: The Federal rules restrict any use of the information to criminally investigate or prosecute any alcohol or drug abuse patient.[facility] SystemIn the event this information is protected by the Federal Confidentiality of Alcohol and Drug Abuse Patient Records regulations: The Federal rules restrict any use of the information to criminally investigate or prosecute any alcohol or drug abuse patient.[facility] SystemIn the event this information is protected by the Federal Confidentiality of Alcohol and Drug Abuse Patient Records regulations: The Federal rules restrict any use of the information to criminally investigate or prosecute any alcohol or drug abuse patient.[facility] SystemIn the event this information is protected by the Federal Confidentiality of Alcohol and Drug Abuse Patient Records regulations: The Federal rules restrict any use of the information to criminally investigate or prosecute any alcohol or drug abuse patient.[facility] SystemIn the event this information is protected by the Federal Confidentiality of Alcohol and Drug Abuse Patient Records regulations: The Federal rules restrict any use of the information to criminally investigate or prosecute any alcohol or drug abuse patient.[facility] SystemIn the event this information is protected by the Federal Confidentiality of Alcohol and Drug Abuse Patient Records regulations: The Federal rules restrict any use of the information to criminally investigate or prosecute any alcohol or drug abuse patient.[facility] SystemIn the event this information is protected by the Federal Confidentiality of Alcohol and Drug Abuse Patient Records regulations: The Federal rules restrict any use of the information to criminally investigate or prosecute any alcohol or drug abuse patient.[facility] SystemIn the event this information is protected by the Federal Confidentiality of Alcohol and Drug Abuse Patient Records regulations: The Federal rules restrict any use of the information to criminally investigate or prosecute any alcohol or drug abuse patient.[facility] SystemIn the event this information is protected by the Federal Confidentiality of Alcohol and Drug Abuse Patient Records regulations: The Federal rules restrict any use of the information to criminally investigate or prosecute any alcohol or drug abuse patient.[facility] SystemIn the event this information is protected by the Federal Confidentiality of Alcohol and Drug Abuse Patient Records regulations: The Federal rules restrict any use of the information to criminally investigate or prosecute any alcohol or drug abuse patient.[facility] SystemIn the event this information is protected by the Federal Confidentiality of Alcohol and Drug Abuse Patient Records regulations: The Federal rules restrict any use of the information to criminally investigate or prosecute any alcohol or drug abuse patient.[facility] SystemIn the event this information is protected by the Federal Confidentiality of Alcohol and Drug Abuse Patient Records regulations: The Federal rules restrict any use of the information to criminally investigate or prosecute any alcohol or drug abuse patient.[facility] SystemIn the event this information is protected by the Federal Confidentiality of Alcohol and Drug Abuse Patient Records regulations: The Federal rules restrict any use of the information to criminally investigate or prosecute any alcohol or drug abuse patient.[facility] SystemIn the event this information is protected by the Federal Confidentiality of Alcohol and Drug Abuse Patient Records regulations: The Federal rules restrict any use of the information to criminally investigate or prosecute any alcohol or drug abuse patient.[facility] SystemIn the event this information is protected by the Federal Confidentiality of Alcohol and Drug Abuse Patient Records regulations: The Federal rules restrict any use of the information to criminally investigate or prosecute any alcohol or drug abuse patient.[facility] SystemIn the event this information is protected by the Federal Confidentiality of Alcohol and Drug Abuse Patient Records regulations: The Federal rules restrict any use of the information to criminally investigate or prosecute any alcohol or drug abuse patient.[facility] SystemIn the event this information is protected by the Federal Confidentiality of Alcohol and Drug Abuse Patient Records regulations: The Federal rules restrict any use of the information to criminally investigate or prosecute any alcohol or drug abuse patient.[facility] SystemIn the event this information is protected by the Federal Confidentiality of Alcohol and Drug Abuse Patient Records regulations: The Federal rules restrict any use of the information to criminally investigate or prosecute any alcohol or drug abuse patient.[facility] SystemIn the event this information is protected by the Federal Confidentiality of Alcohol and Drug Abuse Patient Records regulations: The Federal rules restrict any use of the information to criminally investigate or prosecute any alcohol or drug abuse patient.[facility] SystemIn the event this information is protected by the Federal Confidentiality of Alcohol and Drug Abuse Patient Records regulations: The Federal rules restrict any use of the information to criminally investigate or prosecute any alcohol or drug abuse patient.[facility] SystemIn the event this information is protected by the Federal Confidentiality of Alcohol and Drug Abuse Patient Records regulations: The Federal rules restrict any use of the information to criminally investigate or prosecute any alcohol or drug abuse patient.[facility] SystemIn the event this information is protected by the Federal Confidentiality of Alcohol and Drug Abuse Patient Records regulations: The Federal rules restrict any use of the information to criminally investigate or prosecute any alcohol or drug abuse patient.[facility] SystemIn the event this information is protected by the Federal Confidentiality of Alcohol and Drug Abuse Patient Records regulations: The Federal rules restrict any use of the information to criminally investigate or prosecute any alcohol or drug abuse patient.[facility] SystemIn the event this information is protected by the Federal Confidentiality of Alcohol and Drug Abuse Patient Records regulations: The Federal rules restrict any use of the information to criminally investigate or prosecute any alcohol or drug abuse patient.[facility] SystemIn the event this information is protected by the Federal Confidentiality of Alcohol and Drug Abuse Patient Records regulations: The Federal rules restrict any use of the information to criminally investigate or prosecute any alcohol or drug abuse patient.[facility] SystemIn the event this information is protected by the Federal Confidentiality of Alcohol and Drug Abuse Patient Records regulations: The Federal rules restrict any use of the information to criminally investigate or prosecute any alcohol or drug abuse patient.[facility] SystemIn the event this information is protected by the Federal Confidentiality of Alcohol and Drug Abuse Patient Records regulations: The Federal rules restrict any use of the information to criminally investigate or prosecute any alcohol or drug abuse patient.[facility] SystemIn the event this information is protected by the Federal Confidentiality of Alcohol and Drug Abuse Patient Records regulations: The Federal rules restrict any use of the information to criminally investigate or prosecute any alcohol or drug abuse patient.[facility] SystemIn the event this information is protected by the Federal Confidentiality of Alcohol and Drug Abuse Patient Records regulations: The Federal rules restrict any use of the information to criminally investigate or prosecute any alcohol or drug abuse patient.[facility] SystemIn the event this information is protected by the Federal Confidentiality of Alcohol and Drug Abuse Patient Records regulations: The Federal rules restrict any use of the information to criminally investigate or prosecute any alcohol or drug abuse patient.[facility] SystemIn the event this information is protected by the Federal Confidentiality of Alcohol and Drug Abuse Patient Records regulations: The Federal rules restrict any use of the information to criminally investigate or prosecute any alcohol or drug abuse patient.[facility] Reason for Visit (unrecogniz ed section and content) Reason Comments Established Patient Knee Pain Reason Comments Established Patient Knee Pain Swelling Specialty Diagnoses / Procedures Referred By Contac t Referred To Contact ORTHOPAEDIC SURGERY Diagnoses Left knee injury Procedures Ortho appointment Ge Maguire MD [address] [address] Referral ID Status Reason Start Date Expiration Date V isits Requested Visits Authorized [id number] Closed Financial Clearance Required - OON Payor OON/Self Pay Override 10/26/2021 12/26/2021 1 1 Reason Comments Established Patient Knee Pain Swelling Specialty Diagnoses / Procedures Referred By Contac t Referred To Contact Orthopedics / ORTHOPAEDIC SURGERY Diagnoses f/u left knee pain Procedures [place] [address] [place] [id number] Referral ID Status Reason Start Date Expiration Date V isits Requested Visits Authorized [id number] Pending Review 12/28/2021 03/28/2022 1 1 Specialty Diagnoses / Procedures Referred By Contac t Referred To Contact Orthopedics / ORTHOPAEDIC SURGERY Diagnoses per LM Procedures ABEL Ge Loving MD [address] [place] [address] Suzette Paul PA-C [address] [place] [address] Referral ID Status Reason Start Date Expiration Date Visits Re quested Visits Authorized [id number] Closed 12/30/2021 06/03/2022 1 1 Reason Comments Established Patient Knee Pain Swelling Specialty Diagnoses / Procedures Referred By Contac t Referred To Contact Orthopedics / ORTHOPAEDIC SURGERY Diagnoses LEFT KNEE PAIN, SWELLING - saw Dr. Maguire in Jan. of last year, same problem. Procedures OFFICE/OUTPATIENT ESTABLISHED MOD MDM 30-39 MIN ABEL ESTABLISH Self Ge Maguire MD, PhD [address] [place] [address] Referral ID Status Reason Start Date Expiration Date Visits Re quested Visits Authorized [id number] Closed 10/02/2022 06/03/2023 1 1 Reason Comments Appointment Reason Comments New Pain Reason Comments Consult Reason Comments Patient Question Reason Onset Date Comments Refill Request 12/01/2022 Reason Comments Established Patient Follow Up Post Op Knee Replacement Specialty Diagnoses / Procedures Referred By Contac t Referred To Contact Orthopedics / ORTHOPAEDIC SURGERY Diagnoses S/P L-RTKA 11/22/22 Procedures POST OP Self Mateo Sawant APRN.[address] [address] Referral ID Status Reason Start Date Expiration Date Visits Re quested Visits Authorized [id number] Closed 12/07/2022 06/03/2023 1 1 Reason Comments Established Patient Follow Up Post Op Knee Replacement Reason Comments Radio Gen RMP Specialty Diagnoses / Procedures Referred By Contac t Referred To Contact XR IMAGING Diagnoses Effusion of left knee Procedures XR KNEE POST OP 3V AP/LAT/MERCHANT LEFT RADIOLOGIC EXAMINATION KNEE 3 VIEWS Ge Maguire MD [address] [place] [address] [place] [address] Referral ID Status Reason Start Date Expiration Date V isits Requested Visits Authorized [id number] Closed Auto-Generate d Referral 10/02/2022 06/03/2023 1 1 Reason Comments Established Patient Follow Up Knee Pain Knee Replacement Post Op Specialty Diagnoses / Procedures Referred By Contac t Referred To Contact Radiology / [facility] Diagnoses Presence of left artificial knee joint L knee Procedures RADIOLOGIC EXAMINATION KNEE 3 VIEWS XR ABEL GENERAL Self Radio General [address] [address] Referral ID Status Reason Start Date Expiration Date Visits Re quested Visits Authorized [id number] Closed 02/27/2023 06/03/2023 1 1 Specialty Diagnoses / Procedures Referred By Contac t Referred To Contact Radiology / [facility] Diagnoses Status post revision of total replacement of left knee Pain in left knee L knee Procedures X-RAY KNEE 2 VW XR ABEL GENERAL Kevon Mackey DO [address] [place] [address] Radio General [facility] [address] [place] [address] Referral ID Status Reason Start Date Expiration Date Visits Re quested Visits Authorized [id number] Closed 01/09/2023 06/03/2023 1 1 Specialty Diagnoses / Procedures Referred By Contac t Referred To Contact XR IMAGING Diagnoses Left knee pain, unspecified chronicity Procedures XR KNEE GENERAL 4V AP BOTH/PA BOTH/LAT/MERC LEFT RADIOLOGIC EXAM KNEE COMPLETE 4/MORE VIEWS Ge Maguire MD [address] [address] [place] [address] Referral ID Status Reason Start Date Expiration Date V isits Requested Visits Authorized [id number] Closed Auto-Generated Referral Patient Cleared - INN Insurance Found 10/25/2021 11/24/2022 1 1 Care Team (unrecognized sect ion and content) Care Team Personnel Name: ANA VILLA MD Position: P4 Physician - Urologist Member Role: Urologist Address: Address: [address] [place] [address] [address] [place] [address]- [place] Name: ANITA BARNHART MD Position: CV Physician Med Service: Active Provider Member Role: Neurologist Address: Address: [address] [facility] [place] [address]- [place] Name: EDILBERTO FRYE MD Position: Physician Med Service: Admitting Member Role: Energy Risk Management Analyst Address: Address: [address] [facility] [address] [place] [address]- [place] Name: MARK SMITH DO Position: P4 Physician - Primary Care Med Service: Active Provider Member Role: Primary Care Physician Address: Address: [address] [place], [place] [address] Name: LENARD ASENCIO MD Position: P4 Oncology Provider Med Service: AMB HEM/ONC Member Role: Oncologist Address: Address: [address] [place] [address] Hematology and Oncology [place] [id number]- Care Team Related Persons Name: KYARA PEPE Care Team Personnel Name: ANA VILLA MD Position: P4 Physician - Urologist Member Role: Urologist Address: Address: [address] [place] [address] [place] [phone]- Name: ANITA BARNHART MD Position: CV Physician Med Service: Active Provider Member Role: Neurologist Address: Address: [address] [facility] [place] [address]- [place] Name: EDILBERTO FRYE MD Position: Physician Med Service: Admitting Member Role: Energy Risk Management Analyst Address: Address: [address] [facility] [address] [place] [address]- [place] Name: MARK SMITH DO Position: P4 Physician - Primary Care Med Service: Active Provider Member Role: Primary Care Physician Address: Address: [address] [place] [id number]- Name: LENARD ASENCIO MD Position: P4 Oncology Provider Med Service: AMB HEM/ONC Member Role: Oncologist Address: Address: [address] [place] [address] Hematology and Oncology [place] [id number]- Care Team Related Persons Name: MY KYARA Care Team Personnel Name: ANA VILLA MD Position: P4 Physician - Urologist Member Role: Urologist Address: Address: [address] [place], [place] [id number]- Name: ANITA BARNHART MD Position: CV Physician Med Service: Active Provider Member Role: Neurologist Address: Address: [address] [facility] [place] [address]- [place] Name: EDILBERTO FRYE MD Position: Physician Med Service: Admitting Member Role: Energy Risk Management Analyst Address: Address: [address] [facility] [address] [place] [address]- [place] Name: MARK SMITH DO Position: P4 Physician - Primary Care Med Service: Active Provider Member Role: Primary Care Physician Address: Address: [address] [place] [address]- Name: LENARD ASENCIO MD Position: P4 Oncology Provider Med Service: AMB HEM/ONC Member Role: Oncologist Address: Address: [address] [place] [address] [place] [address]- Care Team Related Persons Name: KYARA PEPE Care Team Personnel Name: ANA VILLA MD Position: P4 Physician - Urologist Member Role: Urologist Address: Address: [address] [place] [address] [place] [id number]- Name: ANITA BARNHART MD Position: [facility] Physician Med Service: Active Provider Member Role: Neurologist Address: Address: [address] [facility] [place] [id number]- [place] Name: EDILBERTO FRYE MD Position: Physician Med Service: Admitting Member Role: Energy Risk Management Analyst Address: Address: [facility] [address] [address]- [place] Name: MARK SMITH DO Position: P4 Physician - Primary Care Med Service: Active Provider Member Role: Primary Care Physician Address: Address: [address] [place] [address]- Name: LENARD ASENCIO MD Position: P4 Oncology Provider Med Service: AMB HEM/ONC Member Role: Oncologist Address: Address: [address] [place] [address] [place] [address]- Care Team Related Persons Name: KYARA PEPE Care Team Personnel Name: ANA VILLA MD Position: P4 Physician - Urologist Member Role: Urologist Address: Address: [address] [place] [address]- Name: ANITA BARNHART MD Position: CV Physician Member Role: Neurologist Address: Address: [address] [facility] [place] [address]- [place] Name: EDILBERTO FRYE MD Position: Physician Member Role: Energy Risk Management Analyst Address: Address: [address] [facility] [address] [place] [address]- Name: MARK SMITH DO Position: P4 Physician - Primary Care Member Role: Primary Care Physician Address: Address: [address] [place] [address] [place] [address]- Name: LENARD ASENCIO MD Position: P4 Oncology Provider Member Role: Oncologist Address: Address: [address] [place] [address] [place] [address]- Care Team Related Persons Name: KYARA PEPE Care Team Personnel Name: ANA VILLA MD Position: P4 Physician - Urologist Member Role: Urologist Address: Address: [address] [place] [address] [place] [address]- [place] Name: ANITA BARNHART MD Position: [facility] Physician Member Role: Neurologist Address: Address: [address] [facility] [place] [address]- [place] Name: EDILBERTO FRYE MD Position: Physician Member Role: Energy Risk Management Analyst Address: Address: [address] [facility] [address] [place] [address]- [place] Name: MARK SMITH DO Position: P4 Physician - Primary Care Member Role: Primary Care Physician Address: Address: [address] [place] [address]- Name: LENARD ASENCIO MD Position: P4 Oncology Provider Member Role: Oncologist Address: Address: [address] [place] [address] [place] [address]- Care Team Related Persons Name: KYARA PEPE Care Team Personnel Name: ANA VILLA MD Position: P4 Physician - Urologist Member Role: Urologist Address: Address: [address] [place] [address]- [place] Name: ANITA BARNHART MD Position: [facility] Physician Member Role: Neurologist Address: Address: [address] [facility] [place] [address]- [place] Name: EDILBERTO FRYE MD Position: Physician Member Role: Energy Risk Management Analyst Address: Address: [address] [facility] [address] [place] [address]- [place] Name: LENARD ASENCIO MD Position: P4 Oncology Provider Member Role: Oncologist Address: Address: [address] [place] [address] [place] [address]- [place] Name: KEVON MACKEY DO Position: P4 Physician - Primary Care Member Role: Primary Care Physician Address: Address: [address] [place] [address]- [place] Care Team Related Persons Name: KYARA PEPE Care Team Personnel Name: ANA VILLA MD Position: P4 Physician - Urologist Member Role: Urologist Address: Address: [address] [place] [address]- Name: ANITA BARNHART MD Position: [facility] Physician Member Role: Neurologist Address: Address: [address] [facility] [place] [address]- [place] Name: EDILBERTO FRYE MD Position: Physician Member Role: Energy Risk Management Analyst Address: Address: [address] [address]- [place] Name: LENARD SAENCIO MD Position: P4 Oncology Provider Member Role: Oncologist Address: Address: [address] [place] [address] [place] [address]- Name: KEVON MACKEY DO Position: P4 Physician - Primary Care Member Role: Primary Care Physician Address: Address: [address] [place], [place] [address] Care Team Related Persons Name: KYARA PEPE FOR RECORDS PERTAINING TO PATIENTS WHO ARE OR HAVE BEEN ENROLLED IN A CHEMICAL DEPENDENCY/SUBSTANCEABUSE PROGRAM, SOME INFORMATION MAY BE OMITTED. This clinical summary was aggregated from multiple sources. Caution should be exercised in using it in the provision of clinical care. This summary normalizes information from multiple sources, and as a consequence, information in this document may materially change the coding, format and clinical context of patient data. In addition, data may be omitted in some cases. CLINICAL DECISIONS SHOULD BE BASED ON THE PRIMARY CLINICAL RECORDS. [facility] [employer] provides no warranty or guarantee of the accuracy or completeness of information in this document.
[2024-11-17] MEDS: Lactated Ringers 1,000 ML 15 ML IV (06:32)
--- NOTE | 2024-11-17 06:41 | PCM.HP.STD ---
HPI - General General Date of Admission: 11/17/24 Date of Service: 11/17/24 Chief Complaint: Esophageal varices HPI Narrative ALEYDA PEPE, is a 63 M who presents for esophageal varices screening. ALEYDA PEPE, is a 63 M who presents to the office today for follow up. Previously established with Dr. Marr for chronic liver issues. PMH alcoholic cirrhosis of liver, history of alcohol abuse, thrombocytopenia d/t liver disease, GERD. Cessation of alcohol in 2008. Omeprazole taken for GERD, symptoms under control. He is working hard with diet and exercise to lose weight. Denies any family related primary liver pathology but is a brother from [place] cancer metastasized to liver. 01.05.20 CT abdomen w/ contrast- liver is heterogenous with a micronodular contour consistent with given history of cirrhosis. No definite focal lesion identified. S/P cholecystectomy. Spleen heterogenous and enlarged. Portal vein measures 1.7 cm and appears patent. A subcentimeter RIGHT renal hypodensity is too small to accurately characterized but likely represents a cyst. A LEFT renal cycst is also shown. Small hiatal hernia. Atherosclerotic changes shown in the normal caliber aorta. Findings consistent with given history of cirrhosis with evidence of portal hypertension. 01.04.22 MRI abdomen w/wo contrast- Diffuse contour abnormality of liver consistent with cirrhotic changes. Severe splenomegaly. 11.20.22 US abdomen, Liver demonstrates heterogenous echogenicity with a lobulated border. A left renal cyst measures 2.6 x 2.8 x 2.3 cm. Spleen enlarged measures 17.8 x17.9 x 5.7. EGD, trace esophageal varices. No acute complaint. Patient quit alcohol about 15 years ago in 2008. He used to follow [facility] bathroom tiling professional Dr. 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 Kuo till now. Last blood work from January [address] abdomen and MRI reviewed. No recent history of GI bleed, ascites, jaundice or bleeding. Cirrhosis seems compensate 02.29.24- MELDna 9 OV 05.13.24- Pt well since last visit. Denies abdominal pain, changes in bowels, dizziness, confusion or swelling. No complaints today. OV 12.11.23 - MELDna 7 Abd Elastography 06/13/24 Liver stiffness measures 13.2 kPa compatible with F3-F4 (Moderate to severe liver fibrosis) Metavir score. OV 09/10/2024: MELD sodium score 8 from 09/01/2024. Patient had EGD on 07/22/2024. No acute complaint [facility] Medical History History of hiatal hernia History of echocardiogram Cardiology follow-up encounter CAD (coronary artery disease) Wears hearing aid Wears glasses Migraine headache Gastric reflux Non-smoker Palpitations Low back pain Dyslipidemia Urinary incontinence, functional Hypertension Erectile dysfunction Chronic migraine Prostate cancer Thrombocytopenia Alcohol abuse Arthritis Hiatal hernia GERD (gastroesophageal reflux disease) Alcoholic cirrhosis of liver Restless leg syndrome Home Medications ?Medication ?Instructions ?Recorded ?Last Taken ?Type multivitamin (Multiple Vitamins 1 ea PO DAILY 09/29/16 11/16/24 History tablet) rimegepant 75 mg disintegrating 75 mg PO ONCE PRN migraine headache 10/26/21 Unknown History tablet (Nurtec ODT) sumatriptan succinate 100 mg tablet 100 mg PO ONCE PRN migraine 10/26/21 Unknown History headache cholecalciferol (vitamin D3) 125 125 mcg PO QDAY 02/29/24 11/16/24 History mcg (5,000 unit) tablet omeprazole 20 mg capsule,delayed 20 mg PO QDAY 02/29/24 11/17/24 History release vitamin B complex 1 cap PO QDAY 02/29/24 11/16/24 History tadalafil 20 mg tablet 20 mg PO DAILY PRN sexual activity 07/10/24 Unknown History carvedilol 25 mg tablet 25 mg PO BID #180 tabs 07/18/24 11/17/24 Rx coenzyme Q10 400 mg capsule 400 mg PO QDAY 07/18/24 11/16/24 History lactobacillus combination no.4 3 3,000 mmu cells PO QDAY 07/18/24 11/16/24 History billion cell capsule (Probiotic) ezetimibe 10 mg tablet (Zetia) 10 mg PO QDAY #90 tabs 10/16/24 11/17/24 Rx hydrochlorothiazide 25 mg tablet 25 mg PO QDAY #90 tabs 10/16/24 11/17/24 Rx valsartan 320 mg tablet 320 mg PO QDAY #90 tabs 10/16/24 11/17/24 Rx Allergy/AdvReac Type Severity Reaction Status Date / Time fluoxetine (From Prozac) Allergy Hives Verified 11/13/24 14:48 sertraline Allergy Rash Verified 11/13/24 14:48 amlodipine AdvReac Severe Swelling Verified 11/13/24 14:48 doxazosin AdvReac Weakness Verified 11/13/24 14:48 oxycodone AdvReac HICCUPS Verified 10/16/24 12:13 Family History Mother Arthritis Hypertension Father CAD (coronary artery disease) Heart disease Brother Cancer Liver Other Alcoholism Surgical History History of hernia surgery History of esophagogastroduodenoscopy (EGD) History of colonoscopy History of vasectomy History of toe surgery History of radical prostatectomy History of total left knee replacement History of cholecystectomy Social History Smoking Status: Never smoker alcohol intake: former year quit: 2008 substance use type: does not use caffeine: Yes Type: coffee Number of servings: 2 ROS Constitutional Constitutional: Denies fatigue, fever(s), poor appetite, weight gain or weight loss Gastrointestinal Gastrointestinal: Denies belching, bloating, change in bowel habits, change in stool character, chewing difficulty, coffee ground emesis, constipation, cramping, diarrhea, dyspepsia, dysphagia, early satiety, excessive flatus, fecal incontinence, heartburn, hematemesis, hematochezia, hemorrhoids, loose stools, melena, nausea, odynophagia, rectal bleeding, tenesmus, vomiting or weight changes Vital Signs Vital Signs Vital Signs: 11/17/24 06:28 11/17/24 06:30 Temperature 97.3 F L Temperature Source Temporal Pulse Rate 52 L Respiratory Rate 16 Respiratory Pattern Normal Blood Pressure 154/91 H Blood Pressure Mean 112 Blood Pressure Source Monitor Blood Pressure Position Semi-Fowlers Blood Pressure Location Right Arm Pulse Ox 97 Oxygen Delivery Method Room Air Weight Weight: 240 lb 4.862 oz Body Mass Index (BMI) 29.2 Physical Exam Const alert, oriented x3, no apparent distress and healthy appearing General Appearance: cooperative GI normal to inspection, nondistended, normoactive bowel sounds, soft to palpation, non-tender and non-distended Percussion: normal to percussion Rectal Exam: deferred Assessment & Plan Assessment/Plan (1) Varices of esophagus determined by endoscopy: PLAN: Assessment and Plan Assessment and Plan (1) Alcoholic cirrhosis of liver: Status: Chronic Qualifiers: Ascites presence: without ascites Qualified Code(s): K70.30 - Alcoholic cirrhosis of liver without ascites Plan: Overall assessment seems compensated alcoholic cirrhosis with no recent features of GI bleed/variceal bleed, jaundice, ascites, hepatic hydrothorax or colopathy. Patient has chronic thrombocytopenia. Patient is physically active. Labs from September 01, 2024 reviewed with the patient. MELD sodium score 8, child score A. No acute issues. Abdominal ultrasound with elastography from June 28 shows median liver stiffness 13.2 compatible with F3 F4 moderate to severe liver fibrosis. Splenomegaly about 17.2 cm. No mass Labs from February 2024 showed viral hepatitis, autoimmune markers, HELEN, ceruloplasmin, ferritin and serologies in normal limit. Overall it seems the etiology is alcohol. Patient stated he has been diagnosed cirrhosis about 14 to 15 years ago. Last triple phage abdomen MRI January 2022 reviewed with the patient does not show liver mass but seen by splenomegaly. Prior to that patient also had CT abdomen with IV contrast. Patient is status postcholecystectomy. Micronodular contour of liver suggestive of cirrhosis. Spleen reported enlarged. Portal vein patent. Pancreas no focal cystic or solid mass. Patient is vaccinated with hepatitis A and B. Follow-up in 4 (2) Varices of esophagus determined by endoscopy: Status: Acute Plan: EGD grade 2 esophageal varices, incompletely eradicated/banded. PHG. No gross lesion in D1. Repeat EGD in 3 months. Will schedule EGD. (3) Dyslipidemia: Status: Chronic Plan: Repeat fasting profile on 09/01 shows improvement in TC, LDL and triglyceride Orders: Orders CBC W/Diff, Automated 4 Months E78.5 - Hyperlipidemia, unspecified, I25.10 - Atherosclerotic heart disease of [place] coronary artery without angina pectoris, I85.00 - Esophageal varices without bleeding, K70.30 - Alcoholic cirrhosis of liver without ascites Comprehensive Metabolic Profil 4 Months E78.5 - Hyperlipidemia, unspecified, I25.10 - Atherosclerotic heart disease of [place] coronary artery without angina pectoris, I85.00 - Esophageal varices without bleeding, K70.30 - Alcoholic cirrhosis of liver without ascites Prothrombin Time w/INR 4 Months E78.5 - Hyperlipidemia, unspecified, I25.10 - Atherosclerotic heart disease of [place] coronary artery without angina pectoris, I85.00 - Esophageal varices without bleeding, K70.30 - Alcoholic cirrhosis of liver without ascites CRP 4 Months E78.5 - Hyperlipidemia, unspecified, I25.10 - Atherosclerotic heart disease of [place] coronary artery without angina pectoris, I85.00 - Esophageal varices without bleeding, K70.30 - Alcoholic cirrhosis of liver without ascites AFP, Tumor Marker 4 Months E78.5 - Hyperlipidemia, unspecified, I25.10 - Atherosclerotic heart disease of [place] coronary artery without angina pectoris, I85.00 - Esophageal varices without bleeding, K70.30 - Alcoholic cirrhosis of liver without ascites
--- NOTE | 2024-11-17 06:46 | PCM.PRE.AN2 ---
ASA Classification* ASA Classification ASA Classification: 3 Assessment & Plan Anesthesia* Anesthesia Assessment Anesthesia Assessment: Discussed sedation and/or anesthesia options, risks, benefits, and alternatives with patient/parents/legal guardian/POA. Questions invited. The patient/parents/legal guardian/POA seems to understand and agrees to proceed with anesthesia plan. Reviewed the physical assessment, medical history, allergy history and patient home medications list prior to surgery/procedure/anesthetic and documented any changes. Performed airway and anesthesia risk assessments. Anesthesia Type Anesthesia Type: MAC History Source History Obtained from:: Patient and Chart Anesthesia Focused Assessment* Temperature: 97.3 F Pulse Rate: 52 Blood Pressure: 154/91 Respiratory Rate: 16 Pulse Ox: 97 Oxygen Delivery Method: Room Air Airway Assessment Mouth opens: >3 cm Mallampati Score: III Teeth Condition: Caps/Crowns (Patient has several crowns. They are tight.) Neck Range of motion (ROM): Full ROM Labs Anesthesia Preop lab: CBC WBC 5.2 K/mm3 (4.4-11.0) 09/01/24 16:07 09/01/24 RBC 5.36 M/mm3 (4.6-6.2) 09/01/24 16:07 09/01/24 Hgb 15.7 g/dL (13.0-16.5) 09/01/24 16:07 09/01/24 Hct 45.6 % (40-54) 09/01/24 16:07 09/01/24 Plt Count 112 K/mm3 (150-450) L 09/01/24 16:07 09/01/24 CHEMISTRY Potassium 3.6 mmol/L (3.3-5.1) 10/03/24 10:05 10/03/24 Sodium 139 mmol/L (133-145) 10/03/24 10:05 10/03/24 BUN 25 mg/dL (4-19) H 10/03/24 10:05 10/03/24 Creatinine 0.99 mg/dL (0.70-1.20) 10/03/24 10:05 10/03/24 Glucose 126 mg/dL (70-99) H 10/03/24 10:05 10/03/24 TSH 1.220 uIU/mL (0.358-3.740) 02/29/24 09:47 02/29/24 COAG PT 14.7 SECONDS (11.7-14.9) 09/01/24 16:07 09/01/24 Pre-Assessment Diagnosis/Proposed Procedure Planned Operative Procedure(s): EGD Anesthesia History 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 When Was Last Pacemaker Check QUESTION #4 FULL TEXT: You/Your Family Experience fever (hyperthermia) with Anesthesia Last Oral Intake Last Oral intake: Last Oral Intake NPO since 00:00 11/17/24 06:30 Meds taken in AM with sips of Yes 11/17/24 06:30 water? 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 Female Yes 11/13/24 14:50 HX of Motion Sickness No 11/13/24 14:50 HX of N/V After Surgery No 11/13/24 14:50 Non-Smoker Yes 11/13/24 14:50 Duration of Surgery greater No 11/13/24 14:50 than 60 minutes Number of Risk Factors 2 11/13/24 14:50 PONV Score Moderate Risk 11/13/24 14:50 Height & Weight Height & Weight: Anesthesia: Height & Weight Height 6 ft 4 in 11/17/24 06:30 Weight: 109 kg 11/17/24 06:30 Body Mass Index (BMI) 29.2 11/17/24 06:30 Respiratory Assessment Respiratory Assessment - 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 Has anyone observed you stop No 11/13/24 14:50 breathing during sleep? STOP Results Negative 11/13/24 14:50 QUESTION #5 FULL TEXT : Do you snore loudly (louder than talking or can be heard through closed doors)? 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 Specify any problems Hx of Preganancy in last 3 N/A 11/13/24 14:50 Months Nurse Filling Out Transfusion [id number] 11/13/24 14:50 & Questions: Date: 11/13/24 11/13/24 14:50 Time: 14:51 11/13/24 14:50 Patient unable to answer at this time (ie. 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 secretary: /Reproductive Hx- alumnae secretary Hx Now No 11/13/24 14:50 Gestational Age (in weeks): EDC: Hx Hx Para Hx Section SAB No 11/13/24 14:50 Active Medications Active Medications: Current Medications Generic Name Dose Route Start Last Admin Trade Name Freq PRN Reason Stop Dose Admin Lactated Ringer's 1,000 mls @ 15 mls/hr 11/17/24 06:15 11/17/24 06:32 IV 15 mls/hr .Q48H VICENTE Administration PFSH Medical History History of hiatal hernia History of echocardiogram Cardiology follow-up encounter CAD (coronary artery disease) Wears hearing aid Wears glasses Migraine headache Gastric reflux Non-smoker Palpitations Low back pain Dyslipidemia Urinary incontinence, functional Hypertension Erectile dysfunction Chronic migraine Prostate cancer Thrombocytopenia Alcohol abuse Arthritis Hiatal hernia GERD (gastroesophageal reflux disease) Alcoholic cirrhosis of liver Restless leg syndrome Home Medications ?Medication ?Instructions ?Recorded ?Last Taken ?Type multivitamin (Multiple Vitamins 1 ea PO DAILY 09/29/16 11/16/24 History tablet) rimegepant 75 mg disintegrating 75 mg PO ONCE PRN migraine headache 10/26/21 Unknown History tablet (Nurtec ODT) sumatriptan succinate 100 mg tablet 100 mg PO ONCE PRN migraine 10/26/21 Unknown History headache cholecalciferol (vitamin D3) 125 125 mcg PO QDAY 02/29/24 11/16/24 History mcg (5,000 unit) tablet omeprazole 20 mg capsule,delayed 20 mg PO QDAY 02/29/24 11/17/24 History release vitamin B complex 1 cap PO QDAY 02/29/24 11/16/24 History tadalafil 20 mg tablet 20 mg PO DAILY PRN sexual activity 07/10/24 Unknown History carvedilol 25 mg tablet 25 mg PO BID #180 tabs 07/18/24 11/17/24 Rx coenzyme Q10 400 mg capsule 400 mg PO QDAY 07/18/24 11/16/24 History lactobacillus combination no.4 3 3,000 mmu cells PO QDAY 07/18/24 11/16/24 History billion cell capsule (Probiotic) ezetimibe 10 mg tablet (Zetia) 10 mg PO QDAY #90 tabs 10/16/24 11/17/24 Rx hydrochlorothiazide 25 mg tablet 25 mg PO QDAY #90 tabs 10/16/24 11/17/24 Rx valsartan 320 mg tablet 320 mg PO QDAY #90 tabs 10/16/24 11/17/24 Rx Allergy/AdvReac Type Severity Reaction Status Date / Time fluoxetine (From Prozac) Allergy Hives Verified 11/13/24 14:48 sertraline Allergy Rash Verified 11/13/24 14:48 amlodipine AdvReac Severe Swelling Verified 11/13/24 14:48 doxazosin AdvReac Weakness Verified 11/13/24 14:48 oxycodone AdvReac HICCUPS Verified 10/16/24 12:13 Family History Mother Arthritis Hypertension Father CAD (coronary artery disease) Heart disease Brother Cancer Liver Other Alcoholism Surgical History History of hernia surgery History of esophagogastroduodenoscopy (EGD) History of colonoscopy History of vasectomy History of toe surgery History of radical prostatectomy History of total left knee replacement History of cholecystectomy Social History Smoking Status: Never smoker alcohol intake: former year quit: 2008 substance use type: does not use caffeine: Yes Type: coffee Number of servings: 2 Review of Systems (Anesthesia) ROS Narrative System reviewed and no additional complaints, except as documented.
--- NOTE | 2024-11-17 07:00 | EGD_PTH ---
PATIENT: ALEYDA PEPE LOC: [facility] U#:[id number] AGE/SX: 63/M ROOM: RE11/17/[address]: Dr. Bismark Montoya DO : 1960 BED: DIS: 11/17/2024 SPEC #: [id number] RECD: 11/17/24 10:42 STATUS: PAPA RELuly #: [id number] MIKE: 11/17/24 07:[address]: Bismark Montoya DEPT: SURGICAL PATHOLOGY RECD BY: Adelso Fields ENTERED: 11/17/24 11:32 SP TYPE: EGD BIOPSY NEGRO DR: Dr. Kevon Mackey DO Tissues: A - Gastric mucous membrane B - Duodenum, NOS C - Esophagus, NOS Procedures: Immunohistochemical Stains Surgery Specimen Level IV HEADER OPERATION: EGD PRE-OP DIAGNOSIS: Varices of esophagus determined by endoscopy TISSUE SUBMITTED: A- Gastric body, B- Duodenum biopsy, C- Distal esophagus biopsy MICROSCOPIC DIAGNOSIS A. Gastric body, biopsy: Oxyntic mucosa with mild chronic inflammation. IHC negative for H.pylori organisms. B. Duodenum, biopsy: Gastric mucin cell metaplasia with Julienne gland hyperplasia and mild acute inflammation, suggestive of peptic injury. Negative for increased intraepithelial lymphocytes. C. Distal esophagus, biopsy: Squamous mucosa with reactive changes. Columnar mucosa negative for goblet cell metaplasia. Negative for dysplasia. MICROSCOPIC DESCRIPTION Slides are reviewed. All matched controls reacted appropriately. These tests were developed and their performance characteristics determined by [facility]. They may not have been cleared or approved by the U.S. Food and Drug Administration. The FDA has determined that such clearance or approval is not necessary. The above immunohistochemical/dualISH markers are viewed by the Pathologist. GROSS DESCRIPTION A. Received in fixative is one container labeled with the patient's name and designated Gastric body. The specimen consists of two irregular fragments of light mclain soft tissue that in aggregate each measuring 0.7 cm. The specimen is totally submitted in one cassette. B. Received in fixative is one container labeled with the patient's name and designated Duodenum biopsy. The specimen consists of two irregular fragments of light mclain soft tissue that in aggregate measure 0.3 and 0.4 cm. The specimen is totally submitted in one cassette. C. Received in fixative is one container labeled with the patient's name and designated Distal esophagus biopsy. The specimen consists of one irregular fragment of light mclain soft tissue that measures 0.3 cm. The specimen is totally submitted in one cassette. CPT:05264l5,17468 [place]/mr 11/17/2024
--- NOTE | 2024-11-17 07:30 | OP.EGD_ITS ---
Patient Name: Srinath Villatoro Procedure Date: 11/17/2024 7:07 AM Date of : 1960 Age: 63 Procedure: Upper GI endoscopy Indications: Cirrhosis with suspected esophageal varices Providers: Bismark Montoya DO Referring MD: Kevon Mackey Do Medicines: Monitored Anesthesia Care Patient Profile: This is a 63 year old male. Refer to note in patient chart for documentation of history and physical. Patient has symptoms. His most recent EGD for biopsy and EGD for treatment of bleeding. Complications: No immediate complications. Procedure: Pre-Anesthesia Assessment: - Prior to the procedure, a History and Physical was performed, and patient medications and allergies were reviewed. The patient is competent. The risks and benefits of the procedure and the sedation options and risks were discussed with the patient. All questions were answered and informed consent was obtained. Patient identification and proposed procedure were verified in the pre-procedure area. Mental Status Examination: alert and oriented. Airway Examination: normal oropharyngeal airway and neck mobility. Respiratory Examination: clear to auscultation. CV Examination: normal. Prophylactic Antibiotics: The patient does not require prophylactic antibiotics. Prior Anticoagulants: The patient has taken no anticoagulant or antiplatelet agents except for NSAID medication. ASA Grade Assessment: II - A patient with mild systemic disease. After reviewing the risks and benefits, the patient was deemed in satisfactory condition to undergo the procedure. The anesthesia plan was to use monitored anesthesia care (MAC). Immediately prior to administration of medications, the patient was re-assessed for adequacy to receive sedatives. The heart rate, respiratory rate, oxygen saturations, blood pressure, adequacy of pulmonary ventilation, and response to care were monitored throughout the procedure. The physical status of the patient was re-assessed after the procedure. After obtaining informed consent, the endoscope was passed under direct vision. Throughout the procedure, the patient's blood pressure, pulse, and oxygen saturations were monitored continuously. The gastroscope was introduced through the mouth, and advanced to the third part of the duodenum. Small bowel enteroscopy was deemed necessary. The upper GI endoscopy was accomplished without difficulty. The patient tolerated the procedure well. Scope In: 7:18:05 AM Scope Out: 7:21:33 AM Total Procedure Duration Time 0 hours 3 minutes 28 seconds Findings: The Z-line was irregular and was found 40 cm from the incisors. Biopsies were taken with a cold forceps for histology. Verification of patient identification for the specimen was done. Estimated blood loss was minimal. Patchy mildly erythematous mucosa without bleeding was found in the gastric body. Biopsies were taken with a cold forceps for histology. Biopsies were taken with a cold forceps for histology. Biopsies were taken with a cold forceps for Helicobacter pylori testing. Verification of patient identification for the specimen was done. Estimated blood loss was minimal. Patchy mildly erythematous mucosa without active bleeding and with no stigmata of bleeding was found in the duodenal bulb. Biopsies were taken with a cold forceps for histology. Verification of patient identification for the specimen was done. Estimated blood loss was minimal. Impression: - Z-line irregular, 40 cm from the incisors. Biopsied. - Erythematous mucosa in the gastric body. Biopsied. - Erythematous duodenopathy. Biopsied. Recommendation: - Discharge patient to home. - Resume previous diet. - Continue present medications. - Await pathology results. Procedure Code(s): --- Professional --- 74829, Small intestinal endoscopy, enteroscopy beyond second portion of duodenum, not including ileum; with biopsy, single or multiple CPT copyright 2021 [employer]. All rights reserved. The codes documented in this report are preliminary and upon sales assistants and salespersons review may be revised to meet current compliance requirements. Bismark Montoya DO 11/17/2024 7:30:11 AM This report has been signed electronically. Number of Addenda: 0 Note Initiated On: 11/17/2024 7:07 AM
--- NOTE | 2024-11-17 07:31 | OP.CCLET_ITS ---
11/17/2024 Kevon Mackey Do Re : Upper GI endoscopy procedure for Srinath Irving Dear Dr. Mackey This procedure was performed on Sunday, November 17, 2024. My impressions and recommendations are as follows: Impressions : - Z-line irregular, 40 cm from the incisors. Biopsied. - Erythematous mucosa in the gastric body. Biopsied. - Erythematous duodenopathy. Biopsied. Recommendations : - Discharge patient to home. - Resume previous diet. - Continue present medications. - Await pathology results. My findings are described in the full procedure note, which is enclosed. If I can be of further assistance, please feel free to contact me at . Sincerely, Bismark Montoya, 11/17/2024 7:30:11 AM This report has been signed electronically.
--- NOTE | 2024-11-17 07:33 | PCM.POST.ANE ---
Anesthesia: Postop Eval I Current Vital Signs Temperature: 97.8 F Pulse Rate: 61 Blood Pressure: 108/79 Respiratory Rate: 14 Pulse Ox: 99 Oxygen Delivery Method: Room Air Assessment Airway patent: Yes Spontaneous unlabored respirations: Yes Mental status: Awake and Calm nausea: No Vomiting: No Anesthesia Complication: No Fluid Hydration Crystalloid volume administer (ml): 300 Total IV fluid infused: 300 Progress Note Anesthesia document: Postop Eval 1 completed: Yes
--- NOTE | 2024-11-17 12:27 | PCM.POSTANE2 ---
Anesthesia Postop Eval I Sum Postop Eval Completion status Anesthesia document: Postop Eval 1 completed: Yes Anesthesia Postop Eval I Summary Anesthesia Postop Eval I Summary: Anesthesia Postop Eval I: Assessment Summary Airway patent Yes 11/17/24 07:34 [email or web address] Spontaneous unlabored Yes 11/17/24 07:34 [email or web address] respirations Mental status Awake,Calm 11/17/24 07:34 [email or web address] nausea No 11/17/24 07:34 [email or web address] Vomiting No 11/17/24 07:34 [email or web address] Anesthesia Postop Eval I: Fluid Summary Crystalloid volume administer 300 11/17/24 07:34 [email or web address] (ml) Colloids volume administered ( ml) Blood Product volume administered (ml) Total IV fluid infused 300 11/17/24 07:34 [email or web address] Anesthesia Postop Eval I: Summary Notes Anesthesia Complication No 11/17/24 07:34 [email or web address] Anesthesia Complication Comment: Post-operative progress note Anesthesia: Postop Eval II Evaluation Mental status: Awake and Calm Pain Level: 0 nausea: No Vomiting: No Complications Anesthesia Complication: No
== END 2024-11-17 08:08 | disposition home or self-care (01) ==
LOC: EN 05:52 → AC 05:52
PROVIDERS: Visit Provider Internal Medicine Gastroenterology
PROC: 0DJ08ZZ Inspection of Upper Intestinal Tract, Via Natural or Artificial Opening Endoscopic (ICD-10-PCS; CPT 43235; principal; 2024-11-17 06:55)
DX: K31.89 Other diseases of stomach and duodenum (principal); I85.00 Esophageal varices without bleeding; K70.30 Alcoholic cirrhosis of liver without ascites; I25.10 Atherosclerotic heart disease of native coronary artery without angina pectoris; K21.9 Gastro-esophageal reflux disease without esophagitis; E78.5 Hyperlipidemia, unspecified; Z79.899 Other long term (current) drug therapy
CPT/HCPCS: 43239; 88305; 88342; J2405

== ENCOUNTER → 2025-01-30 | Outpatient (CLI) | payer OTHER, SELFPAY | END | disposition home or self-care (01) | LOC: CVS 08:37 | PROVIDERS: Referring Provider Internal Medicine Cardiovascular Disease; Visit Provider Internal Medicine Cardiovascular Disease | DX: R03.0 Elevated blood-pressure reading, without diagnosis of hypertension (principal) | CPT/HCPCS: 93788 ==

== ENCOUNTER → 2025-02-10 | Outpatient (CLI) | payer OTHER, SELFPAY ==
[2025-02-10 11:57] LABS: Prothrombin Time (Protime)PT. 15.2 SECONDS (11.7-14.9)
[2025-02-10 12:09] LABS: CRP < 3.00 mg/L (0.0-3.0)
== END | disposition home or self-care (01) ==
LOC: LAB 11:01
PROVIDERS: Referring Provider Internal Medicine; Visit Provider Internal Medicine
DX: I85.00 Esophageal varices without bleeding (principal); K70.30 Alcoholic cirrhosis of liver without ascites; I25.10 Atherosclerotic heart disease of native coronary artery without angina pectoris; E78.5 Hyperlipidemia, unspecified
CPT/HCPCS: 82105; 85610; 86140

== ENCOUNTER 2025-03-02 10:09 | Day surgery (SDC) | payer OTHER, SELFPAY ==
--- OUTSIDE RECORDS SUMMARY | 2025-01-15 07:41 | XMS RPT_ITS ---
Author Name Auto Generated Organization [facility] Care Team Providers Care Creche Attendant Name Role Phone SWAPNA CALDERON DO Primary Care Unavailable SWAPNA CALDERON DO Attending Unavailable SWAPNA CALDERON DO Primary Care Unavailable SWAPNA CALDERON DO Attending Unavailable ANA VILLA MD Attending Unavailable SWAPNA CALDERON DO Primary Care Unavailable SWAPNA CALDERON DO Primary Care Unavailable ANA VILLA MD Attending Unavailable SWAPNA CALDERON DO Primary Care Unavailable ANA VILLA MD Attending Unavailable PROBLEMS DATE TYPE CONDITION / CODE ATTENDING STATUS [facility] 12/31/2024 Admitting Diagnosis Encounter for general adult medical examination without abnormal findings / Z00.00(ICD-10) SWAPNA CALDERON DO Active [facility] 12/31/2024 Admitting Diagnosis Essential (primary) hypertension / I10(ICD-10) SWAPNA CALDERON DO Active [facility] PROCEDURES No Procedure Records Found RESULTS CBC Collected: 5 7:46 AM Status: F Source: [facility] TYPE CODE TESTS RESULT OUT OF RANGE REFERENCE UNITS LAB WBC(LOINC) WBC 4.9 4.5-10.8 10 3/mcL LAB RBCCT(LOINC) RBC 5.55 4.50-6.00 10 6/mcL LAB HGB(LOINC) Hgb 16.2 13.0-17.5 G/dL LAB HCT(LOINC) Hct 47.8 40.0-52.0 % LAB MCV(LOINC) MCV 86.1 81.0-100.0 fL LAB MCH(LOINC) MCH 29.1 27.0-33.0 pg LAB MCHC(LOINC) MCHC 33.8 32.0-36.0 G/dL LAB RDW(LOINC) RDW 14.6 11.5-15.5 % LAB PLT(LOINC) Platelet 112 Low 150-450 10 3/mcL LAB MPV(LOINC) MPV 9.1 6.4-10.5 fL Performed By: #### ANEU, CBC , GFR, VIDH, ADIFF, TSHR, CMP, LIPID, PSA #### [address] [address] #### B12 #### [address] [address] .AUTO DIFF Collected: 01/15/2025 7:46 AM Status: F Source: [facility] TYPE CODE TESTS RESULT OUT OF RANGE REFERENCE UNITS LAB SKYLA(LOINC) Neutrophil % 62.1 50.0-75.0 % LAB LYM(LOINC) Lymphocyte % 24.9 20.0-40.0 % LAB MON(LOINC) Monocyte % 11.2 2.0-13.0 % LAB EO(LOINC) Eosinophil % 1.3 0.0-6.0 % LAB BAS(LOINC) Basophil % 0.5 0.0-2.5 % LAB ABLYM(LOINC) Lymphocyte, Absolute 1.2 0.9-4.3 10 3/mcL LAB MAYRA(LOINC) Monocyte, Absolute 0.5 0.1-1.4 10 3/mcL LAB AEOS(LOINC) Eosinophil, Absolute 0.1 0.0-0.7 10 3/mcL LAB ABAS(LOINC) Basophil, Absolute 0.0 0.0-0.3 10 3/mcL Performed By: #### ANEU, CBC , GFR, VIDH, ADIFF, TSHR, CMP, LIPID, PSA #### [address] [address] #### B12 #### [place] [id number] .NEUABS Collected: 7:46 AM Status: F Source: [facility] TYPE CODE TESTS RESULT OUT OF RANGE REFERENCE UNITS LAB ANEU(INC) Neutrophil, Absolute 3.0 2.3-8.1 10 3/mcL Performed By: #### ANEU, CBC , GFR, VIDH, ADIFF, TSHR, CMP, LIPID, PSA #### [address] [address] #### B12 #### [place] [id number] CMP Collected: 01/15/2025 7:46 AM Status: F Source: [facility] TYPE CODE TESTS RESULT OUT OF RANGE REFERENCE UNITS LAB GLU(LOINC) Glucose Level 96 80-115 mg/dL LAB NA(LOINC) Sodium Level 141 136-145 mmol/L LAB K(LOINC) Potassium Level 3.5 3.5-5.1 mmol/L LAB CL(LOINC) Chloride 105 98-107 mmol/L LAB CO2(LOINC) CO2 28 23-31 mmol/L LAB EBAL(LOINC) Electrolyte Balance 8.0 4.0-15.0 mEq/L LAB BUN(LOINC) BUN 19 High 7-18 mg/dL LAB CRE(LOINC) Creatinine Lvl (s) 1.05 0.67-1.17 mg/dL LAB BC(LOINC) BUN/Creatinine Ratio 18 7-27 ratio LAB CA(LOINC) Calcium Lvl 9.7 8.4-10.2 mg/dL LAB PROT(LOINC) Total Protein 7.2 6.4-8.2 G/dL LAB ALB(LOINC) Albumin Level 4.0 3.4-4.8 G/dL LAB GLB(LOINC) Globulin 3.2 2.7-4.4 G/dL LAB AG(LOINC) A/G Ratio 1.2 1.1-2.5 ratio LAB BILT(LOINC) Bili Total 1.0 0.2-1.0 mg/dL Result Comment: Use of this assay is not recommended for patients undergoing treatment with eltrombopag due to the potential for falsely elevated results. LAB AP(LOINC) Alk Phos 70 40-135 U/L LAB AST(LOINC) AST/SGOT 28 10-40 U/L LAB ALT(LOINC) ALT/SGPT 36 16-63 U/L Performed By: #### ANEU, CBC , GFR, VIDH, ADIFF, TSHR, CMP, LIPID, PSA #### [address] [address] #### B12 #### [place] [address] TSHR Collected: 7:46 AM Status: F Source: [facility] TYPE CODE TESTS RESULT OUT OF RANGE REFERENCE UNITS LAB TSH(LOINC) TSH 1.85 0.36-3.74 mcIU/mL Performed By: #### ANEU, CBC , GFR, VIDH, ADIFF, TSHR, CMP, LIPID, PSA #### [address] [address] #### B12 #### [place] [address] .GFR Collected: 01/15/2025 7:46 AM Status: F Source: [facility] TYPE CODE TESTS RESULT OUT OF RANGE REFERENCE UNITS LAB eGFR(LOINC) Estimated Glomerular Filtration Rate 79 ml/min/1. 73sqm Result Comment: Stages of Chronic Kidney Disease (CKD) Stage Description eGFR(ml/min/1.73 sq.m.) CKD 1 Normal kidney function or >=90 normal kindney function with possible kidney damage (ex. Proteinuria) CKD 2 Kidney damage with mild loss 60-89 of kidney function CKD 3a Mild to moderate loss of kidney 45-59 function CKD 3b Moderate to severe loss of 30-44 of kindey function CKD 4 Severe loss of kidney function 15-29 CKD 5 Kidney failure <15 Note: (go live 2024) the eGFR calculation was updated to the 2020 CKD-EPI creatinine equation without a race factor to calculate the eGFR results. Performed By: #### ANEU, CBC , GFR, VIDH, ADIFF, TSHR, CMP, LIPID, PSA #### [address] [address] #### B12 #### [address] [address] PSA Collected: 01/15/2025 7:46 AM Status: F Source: [facility] TYPE CODE TESTS RESULT OUT OF RANGE REFERENCE UNITS LAB PSA(LOINC) Prostate Specific Antigen <0.05 0.00-4.00 ng/mL Performed By: #### ANEU, CBC , GFR, VIDH, ADIFF, TSHR, CMP, LIPID, PSA #### [address] [address] #### B12 #### [address] [address] VIDH Collected: 7:46 AM Status: F Source: [facility] TYPE CODE TESTS RESULT OUT OF RANGE REFERENCE UNITS LAB VIDH(LOINC) Vit. D 25-Hydroxy 66.7 ng/mL Result Comment: Interpretive Values Based on Total 25(OH) Vitamin D: Deficient <20 ng/mL Insufficient 20 - <30 ng/mL Sufficient 30-100 ng/mL Performed By: #### ANEU, CBC , GFR, VIDH, ADIFF, TSHR, CMP, LIPID, PSA #### [address] [address] #### B12 #### [address] [address] LIPID Collected: 01/15/2025 7:46 AM Status: F Source: [facility] TYPE CODE TESTS RESULT OUT OF RANGE REFERENCE UNITS LAB CHOL(LOINC) Cholesterol 187 0-200 mg/dL Result Comment: Cholesterol Reference Interval: Less than 200 Desirable 200-239 Borderline high risk 240 and above High risk LAB TRIG(LOINC) Triglycerides 79 0-150 mg/dL Result Comment: Triglyceride Reference Interval: Less than 150 Normal 150-199 Borderline high risk 200-499 High risk 500 or higher Very high risk LAB HD(LOINC) HDL Cholesterol 43 40-60 mg/dL LAB LDL(LOINC) LDL Cholesterol 128 0-130 mg/dL Performed By: #### ANEU, CBC , GFR, VIDH, ADIFF, TSHR, CMP, LIPID, PSA #### [place] [id number] [place], [place] [address] #### B12 #### [facility] [address] [place] [address] B12 Collected: 01/15/2025 7:46 AM Status: F Source: [facility] TYPE CODE TESTS RESULT OUT OF RANGE REFERENCE UNITS LAB B12(LOINC) Vitamin B12 Lvl 936 High 211-911 pg/mL Performed By: #### ANEU, CBC , GFR, VIDH, ADIFF, TSHR, CMP, LIPID, PSA #### [place] [id number] [place], [place] [address] #### B12 #### [facility] [address] [place] [address] MALBR Collected: 12/31/2024 4:37 PM Status: F Source: [facility] TYPE CODE TESTS RESULT OUT OF RANGE REFERENCE UNITS LAB CRU(LOINC) U Creatinine 306.3 mg/dL LAB MRUR(LOINC) U Microalb 25.6 mg/L LAB RMAL(LOINC) U Ratio Alb/Cre 8 0-30 mg/G Performed By: #### MALBR ### # [address] [address] PSA Collected: 03/04/2024 4:24 PM Status: F Source: [facility] TYPE CODE TESTS RESULT OUT OF RANGE REFERENCE UNITS LAB PSA(LOINC) Prostate Specific Antigen <0.05 0.00-4.00 ng/mL Performed By: #### PSA #### [address] [address] ALLERGIES No Allergies Records Found ENCOUNTERS ADMIT/DISCHARGE ACCOUNT NUMBER ADMITTING ENCOUNTER CLASS LOC ATION SOURCE 01/15/2025/ 5 [id number] [facility] 12/31/2024/ 5 [id number] Ambulatory [facility]: [facility] 03/31/2024/ 4 [id number] Ambulatory ABuilding:[facility] N [facility] 03/07/2024/ 4 [id number] Ambulatory ABuilding:[facility] 03/04/2024/ 4 [id number] Ambulatory [facility] [facility]: [facility] PAYERS ENCOUNTER GUARANTOR PAYER SUBSCRIBER SOURCE 01/15/2025 ALEYDA Johnson MESSENGERDOB: [id number] [place] [address]~irma .n etTel: (HP) (WP) Primary Insurance:[facility]USTNimiaPO[facility]AL HOSPITALEcorithm INSSELECT [facility] - YOUNGSTOWNolicy Number: [id number] Date:[id number] Name:CPO LANDON LockeMECHE LITTLE [id number]: ALEYDA Elizabeth MESSENGERDOB: [id number] [place] [address]Hma: (HP) (WP) [facility] 12/31/2024 ALEYDA Elizabeth MESSENGERDOB: [id number] [place] [address]~irma .n etTel: (HP) (WP) Primary Insurance:TRUSTOceanlinx INSSELECT [facility] - YOUNG[facility]OWNolicy Number: [id number] Date:5840-53-95Fpeb Name:MCEHE MCKEON [id number]: ALEYDA Elizabeth MESSENGERDOB: [id number] [place] [address]Pjk: (HP) (WP) [facility] 03/31/2024 ALEYDA Elizabeth MESSENGERDOB: [id number] [place] [address]~irma .n etTel: (HP) (WP) Primary Insurance:TRUSTMARK INSCOPolicy Number: [id number] Date:[id number] Name:MECHE MCKEON [id number]: ALEYDA Johnson MESSENGERDOB: [id number] [place] [address]Zec: (HP) (WP) [facility] 03/07/2024 ALEYDA Johnson MESSENGERDOB: [id number] [place] [address]~chi [facility] .n etTel: (HP) (WP) Primary Insurance:TRUSTMARK INSCOPolicy Number: [id number] Date:1664-06-13Qzpn Name:MECHE MCKEON [id number]: ALEYDA Johnson MESSENGERDOB: [id number] [place] [address]Jjw: (HP) () [facility] 03/04/2024 ALEYDA Johnson MESSENGERDOB: [id number] [place] [address]~chi [facility] .n etTel: (HP) (WP) Primary Insurance:[employer] INSCOPolicy Number: [id number] Date:[id number] Name:MECHE MCKEON [id number]: ALEYDA Johnson MESSENGERDOB: [id number] [place] [address]Hes: (HP) (WP) [facility]
[2025-02-10 11:39] LABS: Hematocrit 45.4 % (40-54); Hemoglobin 15.3 g/dL (13.0-16.5); Immature Granulocytes Count 0.020 X10^3/uL (0.0-0.0); Mean Corp Hgb Conc 33.7 g/dL (32-36); Mean Corpuscular Volume 85.7 fL (80-94); Mean Platelet Vol. 11.0 fl (6.2-12.0); NRBC Flagged by Analyzer 0 % (0-5); Platelet Count 117 K/mm3 (150-450); RBC Distribution Width CV 14.3 % (11.6-14.6); RBC Distribution Width SD 45.0 fl (35.1-43.9); Red Blood Count 5.30 M/mm3 (4.6-6.2); White Blood Count 4.8 K/mm3 (4.4-11.0)
[2025-02-10 12:10] LABS: AST(SGOT) 35 U/L (<=37); Alanine Aminotransfer ALT/SGPT 39 U/L (<=46); Albumin, Serum 4.3 g/dL (3.4-4.8); Alkaline Phosphatase 55 U/L (40-129); Anion Gap 9 (5-15); BUN 19 mg/dL (4-19); BUN/Creat Ratio 18.8 RATIO (10-20); Calcium,Total 9.5 mg/dL (7.6-11.0); Carbon Dioxide 26.7 mmol/L (21.0-32.0); Chloride 103 mmol/L (98-108); Globulin 2.6 g/dL (2.2-4.2); Glucose 103 mg/dL (70-99); Potassium 4.0 mmol/L (3.3-5.1); Pro- Brain NATRIURETIC PEPTIDE 713 pg/mL (<=900)
[2025-02-27 11:08] VITALS: BMI 30.2
--- NOTE | 2025-03-02 12:42 | PRO.PCM_ITS ---
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 Informed consent was obtained. Patient was seen by Dr. Edwards of the critical care division. Anterior-posterior pads were applied. The patient was administered 100 mg intravenous propofol. 200 J of synchronized biphasic DC cardioversion energy were applied with prompt reversal to sinus rhythm. Patient tolerated the procedure well. Procedure findings: Successful DC cardioversion from atrial fibrillation to sinus rhythm.
--- NOTE | 2025-03-02 12:51 | PRO.PCM_ITS ---
Procedures Pulmonary Pulmonary Procedures /Diagnostic Testin Con Sedation Non-invasive Procedural Procedure Information Date of Procedure: 03/02/25 Description of procedure: CONSCIOUS SEDATION REPORT DATE OF SERVICE: March 02, 2025 BRIEF HISTORY OF PRESENT ILLNESS: The patient is a 64-year-old male who presented to [facility] to undergo an elective outpatient cardioversion due to underlying atrial fibril lation. The patient has never previously undergone a cardioversion. He denied any prior anesthetic complications. The patient denied a history of COPD, asthma or obstructive sleep apnea. He is systemically anticoagulated on Eliquis. His last surface echocardiogram demonstrated an ejection fraction of approximately 60%. PHYSICAL EXAMINATION: VITAL SIGNS: Reviewed and were acceptable. GENERAL: The patient is a male, in no apparent distress, speaking in full sentences. HEENT: Normocephalic, atraumatic. Mucous membranes are moist and pink. Good mouth opening noted. Trachea is midline. Good neck mobility. CHEST: S1, S2 irregularly irregular. No murmurs, rubs or gallops were noted. LUNGS: Clear to auscultation bilaterally without appreciable wheezes, rales or rhonchi. ABDOMEN: Soft, nontender, nondistended. Positive bowel sounds. EXTREMITIES: There is no clubbing, cyanosis or edema. ASA Class: II DESCRIPTION OF PROCEDURE: After confirmation of informed consent, the patient's anesthesia plan was reviewed in detail. Propofol was chosen. Risks and benefits were reviewed and the patient agreed to proceed. At 1235, the patient was given his first bolus of propofol. In total, the patient required 100 mg of propofol to achieve an appropriate level of sedation, after which time, he was given a 200 J synchronized cardioversion by Dr. Saleem at the bedside. This was successful in achieving normal sinus rhythm. The patient was monitored until 1251, at which time he reached his baseline mental status and function. The patient tolerated the procedure well. COMPLICATIONS: None ESTIMATED BLOOD LOSS: None RECOMMENDATIONS: Okay to recover in usual fashion.
== END 2025-03-02 13:45 | disposition home or self-care (01) ==
PROVIDERS: Nurse Practitioner Gerontology; Referring Provider Internal Medicine Cardiovascular Disease; Visit Provider Internal Medicine Cardiovascular Disease
DX: I48.91 Unspecified atrial fibrillation (principal); Z79.01 Long term (current) use of anticoagulants; I10 Essential (primary) hypertension; Z79.899 Other long term (current) drug therapy; I25.10 Atherosclerotic heart disease of native coronary artery without angina pectoris; K21.9 Gastro-esophageal reflux disease without esophagitis; E78.5 Hyperlipidemia, unspecified; R06.02 Shortness of breath
CPT/HCPCS: 36415; 80053; 83880; 85025; 92960; 93005

== ENCOUNTER → 2025-03-30 | Outpatient (CLI) | payer OTHER, SELFPAY | END | disposition home or self-care (01) | LOC: CVS 06:03 | PROVIDERS: Referring Provider Nurse Practitioner Gerontology; Visit Provider Nurse Practitioner Gerontology | DX: I48.91 Unspecified atrial fibrillation (principal); R53.83 Other fatigue | CPT/HCPCS: 78452; 93017; A9500; A4216 ==

== ENCOUNTER → 2025-05-14 | Outpatient (CLI) | payer OTHER, SELFPAY ==
--- NOTE | 2025-05-14 07:46 | US_ITS ---
PROCEDURE: ABD LIMITED W/ ELASTOGRAPHY REASON FOR EXAM: CIRRHOSIS COMPARISON: June 13, 2024. TECHNIQUE: Procedure Code: USABDLELPARO Modality: US Procedure: ABD LIMITED W/ ELASTOGRAPHY Right upper quadrant abdominal ultrasound. [employer] ElastQ Imaging shear wave elastography for non-invasive assessment of liver tissue stiffness. Germaine EPIQ Elite. FINDINGS: LIVER: Size: Unremarkable Length: 16.6 cm Echotexture: Coarsened Contour: Nodular Lesions: None identified Elastography: EQI Med: 12.6 kPa EQI Med Dave: 2.04 m/s IQR/Med: 8% %* GALLBLADDER: Surgically absent. COMMON BILE DUCT: Normal measuring 5 mm. . PANCREAS: Obscured by bowel gas. Visualized portions of the right kidney are unremarkable. No right upper quadrant ascites. US/ABD Limited w/ Elastography IMPRESSION: MODERATE TO SEVERE HEPATIC FIBROSIS Fatty infiltration of the liver. Status post cholecystectomy. Reference Values: SRU <1.37 m/s (5.7kPa): No to mild fibrosis 1.37 m/s - 2.2 m/s: Moderate to severe fibrosis >2.2 m/s (15kPa): Significant fibrosis / cirrhosis METAVIR Score F2 or higher: 1.34 m/s (5.7kPa) F3 or higher: 1.55 m/s (7.3kPa) F4: 1.80 m/s (10kPa) * If the IQR/Med is >30%, the variance in the measurements is a large and the a ccuracy of the measurement may be in question. Reading Location: [place] [address]
--- OUTSIDE RECORDS SUMMARY | 2025-05-14 07:58 | XMS RPT_ITS | CCD ---
Author Organization [facility] Care Team Providers Care Aircraft Stress Analyst Name Role Phone DEBRA MADISON Admitting UnavailDEBRA Murcia Attending Unavailmichael e MARK SMITH DO Primary Care Physician [phone] Mark Smith DO Primary Care Provider [phone] Dr. Mark Smith Primary Care Provider Dr. Mark Smith Referring Provider [phone] Michele NGUYEN, CRISTOPHER Huff Attending Provider [phone] KEVON MACKEY DO Primary Care Physician Mark Smith DO Primary Care Provider Kevon Mackey DO Primary Care Provider Mark Smith DO Primary Care Provider [phone] Dr. Kevon Mackey Primary Care Provider Dr. Jonathan Saleem Attending Provider [phone] Sarkis Mcdonald Referring Provider [phone] ANA VILLA MD Attending Unavailable KEVON MACKEY [...] Care Unavailable KEVON MACKEY Primary Care Unavailable MATEO SAWANT Referring Unavailable MATEO SAWANT Attending Unavailable KEVON MACKEY Primary Care Unavailable GRATER, MATEO Attending Unavailable GRATEKait, MATEO Referring Unavailable KEVON MACKEY Primary Care Unavailable KEVON MACKEY Primary Care Unavailable Kevon Mackey DO Primary Care Provider [phone] Mark Smith DO Primary Care Provider [phone] Dr. Kevon Mackey DO Primary Care Provider [phone]) Dr. Kevon Mackey DO Referring Provider [phone] Franki BLAKE, Dr. Spaulding Attending Provider Franki BLAKE, Dr. Spaulding Referring Provider Harper BLAKE, Dr. Castillo Attending Provider Lindsay REES, Dr. Sofia Attending Provider Lindsay REES, Dr. Sofia Other Provider Harper BLAKE, Dr. Castillo Referring Provider Referred, Self Attending Provider Unavailable Dr. Kevon Mackey DO Primary Care Provider [phone] Franki BLAKE, Dr. Spaulding Attending Provider Dr. Kevon Mackey DO Referring Provider [phone] Adalgisa Erickson Attending Provider Adalgisa Erickson Referring Provider Dr. Kevon Mackey DO Primary Care Provider [phone]) Dr. Jasson Doan MD Attending Provider Dr. Jasson Doan MD Referring Provider Dr. Kevon Mackey DO Primary Care Provider [phone]) Dr. Kevon Mackey DO Referring Provider [phone] Harper BLAKE, Dr. Castillo Attending Provider [phone] ANA VILLA MD Attending Unavailable KEVON MACKEY Primary Care Unavailable KEVON MACKEY Attending Unavailable KEVON MACKEY Primary Care Unavailable KEVON MACKEY Attending Unavailable KEVON MACKEY Primary Care Unavailable Dr. Kevon Mackey DO Primary Care Provider [phone]) Dr. Kevon Mackey DO Referring Provider [phone] Harper BLAKE, Dr. Castillo Attending Provider Lindsay REES, Dr. Sofia Attending Provider Lindsay REES, Dr. Sofia Other Provider [phone] Naman Crow Attending Provider Mónica NGUYEN-Alta Blackmon Attending Provider Narendra REES, Dr. Lund Primary Care Provider 1([phone]) Harper BLAKE, Dr. Castillo Referring Provider [phone] Adalgisa Erickson Attending Provider [phone] Narendra REES, Dr. Lund Primary Care Physician [phone] Dr. Kevon Mackey DO Referring Provider [phone] Lindsay REES, Dr. Sofia Attending Physician [phone] Lindsay REES, Dr. Sofia Nurse Practitioner Naman Crow Attending Physician Alta Ibrahim Attending Physician Harper BLAKE, Dr. Castillo Attending Physician Adalgisa Erickson Attending Physician Franki BLAKE, Dr. Spaulding Attending Physician Dr. Jasson Doan MD Referring Provider Adalgisa Erickson Nurse Practitioner Dr. Jonathan Saleem MD Nurse Practitioner Dr. Fernando Edwards DO Attending Physician Osei BLAKE, Dr. Carolina Attending Physician Harper, Jonathan Referring Unavailable Kevon Mackey Primary Care Unavailable Harper, Stendal Attending Unavailable Adalgisa Gomez NP Consulting Unavailable Kevon Mackey Primary Care Unavailable Jasson Doan Referring Unavailable Jasson Doan Attending Unavailable Kevon Mackey Primary Care Unavailable Harper, Stendal Attending Unavailable Kevon Mackey Primary Care Unavailable HarperMartinez salazarril Attending Unavailable Harper, Jonathan Referring Unavailable Mackey, Kevon Primary Care Unavailable Harper, Stendal Attending Unavailable Harper, Stendal Referring Unavailable Mackey, Kevon Primary Care Unavailable Gomez RN FACULTY, Adalgisa Attending Unavailable Gomez RN FACULTY, Adalgisa Referring Unavailable Mackey, Kevon Primary Care Unavailable Referred, Self Attending Unavailable Harper, Stendal Referring Unavailable Mackey, Kevon Referring Unavailable Mackey, Kevon Primary Care Unavailable Friend, Bismark Attending Unavailable Mackey, Kevon Primary Care Unavailable Gomez RN FACULTY, Adalgisa Attending Unavailable Mackey, Kevon Primary Care Unavailable Mackey, Kevon Referring Unavailable Friend, Bismark Consulting Unavailable Friend, Bismark Attending Unavailable Alta Sales Attending Unavailable Mackey, Kevon Referring Unavailable Mcakey, Kevon Primary Care Unavailable Mackey, Kevon Referring Unavailable Mackey, Kevon Primary Care Unavailable Franki Jasson Attending Unavailable Mackey, Kevon Referring Unavailable Mackey, Kevon Primary Care Unavailable Harper, Stendal Attending Unavailable Mackey, Kevon Referring Unavailable Mackey, Kevon Primary Care Unavailable Harper, Stendal Attending Unavailable Mackey, Kevon Referring Unavailable Mackey, Kevon Primary Care Unavailable Franki, Jasson Attending Unavailable Harper, Jonathan Referring Unavailable Mackey, Kevon Primary Care Unavailable Harper, Stendal Attending Unavailable Mackey, Kevon Primary Care Unavailable Franki, Jasson Referring Unavailable Franki, Jasson Attending Unavailable Mackey, Kevon Primary Care Unavailable Harper, Stendal Attending Unavailable Gomez RN FACULTY, Adalgisa Consulting Unavailable Harper, Stendal Referring Unavailable Harper, Stendal Consulting Unavailable Mackey, Kevon Primary Care Unavailable Fernando Edwards Attending Unavailable Gomez RN FACULTY, Adalgisa Consulting Unavailable Harper, Jonathan Referring Unavailable Harper, Jonathan Consulting Unavailable Mackey, Kevon Primary Care Unavailable Harper, Stendal Attending Unavailable Gomez RN FACULTY, Adalgisa Referring Unavailable Gomez RN FACULTY, Adalgisa Consulting Unavailable Mackey, Kevon Referring Unavailable Mackey, Kevon Primary Care Unavailable Bismark Montoya Attending Unavailable Mackey, Kevon Referring Unavailable Mackey, Kevon Primary Care Unavailable Gomez RN FACULTY, Adalgisa Attending Unavailable Mackey, Kevon Primary Care Unavailable Gomez RN FACULTY, Adalgisa Attending Unavailable Gomez RN FACULTY, Adalgisa Referring Unavailable Mackey, Kevon Referring Unavailable Mackey, Kevon Primary Care Unavailable Naman Garcia Attending Unavailable Mackey, Kevon Referring Unavailable Mackey, Kevon Primary Care Unavailable DemiterNaman Attending Unavailable Mackey, Kevon Referring Unavailable Mackey, Kevon Primary Care Unavailable Ge Franz Attending Unavailable Mackey, Kevon Referring Unavailable Franki, Jasson Attending Unavailable Maria M Smith Primary Care Unavailable Kevon Mackey Primary Care Unavailable Kevon Mackey Referring Unavailable Naman Garcia Attending Unavailable Kevon Mackey Referring Unavailable Kevon Mackey Primary Care Unavailable Friend, Bismark Consulting Unavailable Friend, Bismark Attending Unavailable Kevon Mackey Primary Care Unavailable Jasson Doan Referring Unavailable Jasson Doan Attending Unavailable KEVON MACKEY DO Primary Care Unavailable ANA VILLA MD Attending Unavailable Allergies Allergy Classification Reported Allergen(s) Allergy Type Date of Onset Reaction(s) Facility (20 sources) Acetaminophen; Translations: [ACETAMINOPHEN] Drug Allergy 6 Other: See Comments [facility] Rep[facility] (20 sources) FLUoxetine; Translations: [FLUOXETINE HCL] Drug Allergy 0 Rash [facility] Rep[facility] (20 sources) oxyCODONE; Translations: [OXYCODONE] Drug Allergy 6 Cough [facility] (20 sources) FLUoxetine; Translations: [fluoxetine] Drug Allergy 8 rash, [facility] (20 sources) Sertraline; Translations: [sertraline] Drug Allergy 3 [facility] (20 sources) Doxazosin; Translations: [doxazosin] Drug Allergy 3 Other: See Comments [facility] (13 sources) amLODIPine; Translations: [amlodipine] Drug Allergy 5 Swelling (morphologic abnormality) [facility] (1 source) amLODIPine Drug Allergy 5 [facility] Rep[facility] (1 source) Doxazosin Drug Allergy 5 [facility] Repository (1 source) FLUoxetine Drug Allergy 5 [facility] Repository (1 source) Sertraline Drug Allergy 5 [facility] Medications Current Medications Medication Drug Class(es) Dates Sig (Normalized) Sig (Original) Tylenol (5 sources) Start: 01-29-2024 Tylenol Oral, 0 Refill(s) Start Date: 01/29/24 Status: Ordered Medication Dispense Status: Completed Total Allowed Fills: 1 Fills Dispensed: 0 Start: 01-29-2024 Tylenol Oral, 0 Refill(s) Start Date: 01/29/24 Status: Ordered Repeat number: 1 Start: 01-29-2024 Tylenol Oral, 0 Refill(s) Start Date: 01/29/24 Status: Ordered albuterol MDI (90 mcg/inh) CFC free inhalation aerosol (2 sources) Start: 08-28-2022 take 1 puff(s) by inhalation every four hours albuterol MDI (90 mcg/inh) CFC free inhalation aerosol 1 puff(s), Inhalation, q4h, # 18 gram(s), 0 Refill(s), Pharmacy: [facility], 194, cm, 08/28/22 15:00:00 EDT, Height Start Date: 08/28/22 Status: Ordered 1 ml alprostadil 0.02 mg/ml cartridge (1 source) Prostaglandin Analog, Prostaglandin E1 Agonist Start: 03-20-2025 Edex 20 mcg injectable kit Dose : 20 mcg =, Intracavernous, Mon/Sun/Sun, # 1 kit(s), 0 Refill(s), Pharmacy: [facility]/pharmacy #[id number], ED (erectile dysfunction), 193, cm, 03/20/25 8:00:00 EDT, Height, kg, 03/20/25 8:00:00 EDT, Dosing Weight Start Date: 03/20/25 Status: Ordered Medication Dispense Status: Completed Quantity: 1.0 Unit: kit(s) Total Allowed Fills: 1 Fills Dispensed: 0 Indications: Male erectile dysfunction, unspecified; amoxicillin 500 mg oral capsule (2 sources) Penicillin-class Antibacterial Start: 03-21-2021 amoxicillin 500 mg oral capsule 0 Refill(s) Start Date: 03/21/21 Status: Ordered apixaban 5 mg oral tablet (11 sources) Factor Xa Inhibitor Start: 01-14-2025 take 1 tablet by mouth twice daily Apixaban (Eliquis) 5 mg tablet Active 5 mg PO TWICE A DAY January 20, 2025 12:00am ordered by Dr. Mackey Complies with drug therapy ascorbic acid 500 mg oral tablet (19 [...] 1 tablet by jennifer th twice daily with meals for 27 [...] 2021 7:43am carvedilol 25 mg oral tablet (20 sources) alpha-Adrenergic Chaitanya, beta-Adrenergic Chaitanya Start: 07-18-2024 carvedilol 25 mg oral tablet Dose : 25 mg = 1 tab(s), Oral, BIDM, 0 Refill(s) Start Date: 01/14/25 Status: Ordered Medication Dispense Status: Completed Total Allowed Fills: 1 Fills Dispensed: 0 Start: 03-03-2024 carvedilol 6.2 5 mg oral tablet Dose : 6.25 mg = 1 tab(s), Oral, BID, # 180 tab(s), 3 Refill(s), Pharmacy: [facility]/pharmacy #[id number], 193, cm, 03/03/24 11:13:00 EDT, Height, kg, [...] Status: Ordered cholecalciferol 0.125 mg oral tablet (14 sources) Vitamin D Start: 02-29-2024 take 1 tablet by mouth once daily Cholecalciferol (Vitamin D3) 125 mcg (5,000 unit) tablet Active 125 ug PO daily February 29, 2024 12:00am Complies with drug therapy cholecalciferol, vitamin D3, (VITAMIN D3 ORAL) (16 sources) cholecalciferol, vitamin D3, (VITAMIN D3 ORAL) Take by mouth. Active cholecalciferol, vitamin D3, (VITAMIN D3 ORAL) Take by mouth. 0 Active Comment on above: Take by mouth. Co-Q10 (20 sources) Start: 12-10-2018 take 1 dose by mouth once daily Co-Q10 Dose : 400 mg =, Oral, Daily Start Date: 12/10/18 Status: Ordered Medication Dispense Status: Completed Total Allowed Fills: 1 Fills Dispensed: 0 Start: 12-10-2018 take 1 dose by mouth once gustavo y Co-Q10 Dose : 400 mg =, Oral, Daily Start Date: 12/10/18 Status: Ordered Repeat number: 1 Start: 12-10-2018 take 1 dose by mouth once gustavo y Co-Q10 Dose : 400 mg =, Oral, Daily Start Date: 12/10/18 Status: Ordered diclofenac sodium 50 mg delayed release oral tablet (1 source) Nonsteroidal Anti-inflammatory Drug Start: 11-01-2021 End: 12-01-2021 take 1 tablet by mouth twice daily diclofenac, EC, (VOLTAREN) 50 mg EC tablet Indications: Acute pain of left knee , Knee swelling , S/P total knee arthroplasty, left Take 1 tablet by mouth twice daily. 60 tablet 0 11/01/2021 12/01/2021 Active Comment on above: Take 1 tablet by mouth twice daily. doxazosin 8 mg oral tablet (20 sources) alpha-Adrenergic Chaitanya Start: 09-30-2021 doxazosin 8 mg oral tablet Dose : 8 mg = 1 tab(s), Oral, qDay, TAKE ONE TABLET BY MOUTH AT BEDTIME, # 90 tab(s), 3 Refill(s), Pharmacy: [facility], BPH associated with nocturia Hypertension, 195, cm, 09/30/21 8:24:00 EDT, Height, kg, 09/30/21 8:24:00 EDT, D... Start Date: 09/30/21 Status: Ordered Start: 05-17-2021 doxazosin 8 mg oral tablet Dose : 8 mg = 1 tab(s), Oral, qDay, TAKE ONE TABLET BY MOUTH AT BEDTIME, # 90 tab(s), 1 Refill(s), Pharmacy: [facility], BPH associated with nocturia Hypertension, 193, cm, 05/09/21 7:55:00 EST, Height, kg, 05/09/21 7:55:00 EST, D... Start Date: 05/17/21 Status: Ordered Start: 05-18-2020 doxazosin 8 mg oral tablet Dose : 8 mg = 1 tab(s), Oral, qDay, TAKE ONE TABLET BY MOUTH AT BEDTIME, # 90 tab(s), 3 Refill(s), Pharmacy: [facility], BPH associated with nocturia Hypertension, 196.5, cm, [...] Status: Ordered ezetimibe 10 mg oral tablet (20 sources) Dietary Cholesterol Absorption Inhibitor Start: 01-15-20 ezetimibe 10 mg oral tablet Dose : 10 mg = 1 tab(s), Oral, qDay, # 90 tab(s), 0 Refill(s) Start Date: 01/14/25 Status: Ordered Medication Dispense Status: Completed Quantity: 90.0 Unit: tab(s) Total Allowed Fills: 1 Fills Dispensed: 0 Start: 08-22-2024 End: 10-16-2024 take 1 tablet by mouth once daily Ezetimibe (Zetia) 10 mg tablet Active 10 mg PO daily 90 October 16, 2024 12:16pm Complies with drug therapy Fish Oil-Dha-Epa (4 sources) Start: 09-29-2016 Fish Oil-Dha-E pa Active 1 EACH PO TWICE A DAY [...] Oral, Daily Start Date: 01/01/14 Status: Ordered 1.5 ml fremanezumab-vfrm 150 mg/ml auto-injector (8 sources) Start: 01-29-2025 Fremanezumab-Vfrm (Ajovy Autoinjector) 225 mg/1.5 mL auto-injector Active 225 mg SC EVERY MONTH 1.5 January 29, 2025 12:00am Complies with drug therapy 1 ml galcanezumab-gnlm 120 mg/ml auto-injector (2 sources) Start: 11-15-2020 inject 1 mL by subcutaneous injection every month Emgality Prefilled Pen 120 mg/mL subcutaneous solution Inject 1 mL every month by subcutaneous route. Start Date: 11/15/20 Status: Ordered hydrALAZINE hydrochloride 50 mg oral tablet (20 sources) Arteriolar Vasodilator Start: 01-22-2025 End: 01-22-2025 take 1 tablet by mouth twice daily Hydralazine 50 mg tablet Active 50 mg PO TWICE A DAY 60 January 22, 2025 3:47pm Complies with drug therapy Start: 01-13-2025 End: 01-22-2025 hydrALAZINE 25 mg oral table t Dose : 25 mg = 1 tab(s), Oral, qDay, # 30 tab(s), 0 Refill(s) Start Date: 01/14/25 Status: Ordered Medication Dispense Status: Completed Quantity: 30.0 Unit: tab(s) Total Allowed Fills: 1 Fills Dispensed: 0 hydroCHLOROthiazide 25 mg oral tablet (20 sources) Thiazide Diuretic Start: 01-14-2025 hydroCHLOROthiazide 25 mg oral tablet Dose : 25 mg = 1 tab(s), Oral, qDay, 0 Refill(s) Start Date: 01/14/25 Status: Ordered Medication Dispense Status: Completed Total Allowed Fills: 1 Fills Dispensed: 0 Start: 09-26-2024 End: 10-16-2024 take 1 tablet by mouth once daily Hydrochlorothiazide 25 mg tablet Active 25 mg PO daily 90 October 16, 2024 12:16pm Complies with drug therapy Start: 09-29-2016 End: 11-06-2022 take 1 tablet by mouth once daily Hydrochlorothiazide 12.5 MG tablet Discontinued 12.5 mg PO DAILY September 29, 2016 12:00am October 26, 2021 7:44am Comment on above: Take 12.5 mg by mout h once daily. Lactobacillus Combination No.4 (Probiotic) 3 billion cell capsule (14 sources) Start: take 3 capsules by mouth once daily Lactobacillus Combination No.4 (Probiotic) 3 billion cell capsule Active 3000 NMA PO daily July 18, 2024 1:00am administer with a meal Complies with drug therapy Start: 07-18-2024 take 3 capsules by m outh once daily Start: 07-18-2024 take 3 capsules by m outh once daily Lactobacillus Combination No.4 (Probiotic) 3 billion cell capsule Active 3000 NMA PO daily July 18, 2024 1:00am administer with a meal Magnesium complex 400 mg (3 sources) Start: 12-24-2020 Magnesium comp sujey 400 mg 0 Refill(s), 113 Start Date: 12/24/20 Status: Ordered magnesium oxide 400 mg oral tablet (20 sources) Start: 04-21-2021 magnesium oxid e 400 mg oral tablet Dose : 400 mg = 1 tab(s), Oral, qHS Start Date: 04/21/21 Status: Ordered Milk Thistle Seed Extract (20 sources) Start: 09-29-2016 take 250 mg by mouth twice daily [...] mouth once daily. Multiple Vitamins oral capsule (11 sources) Start: 08-14-2022 take 1 capsule by mouth once daily Multiple Vitamins oral capsule Dose = 1 cap(s), Oral, Daily, 0 Refill(s) Start Date: 08/14/22 Status: Ordered Medication Dispense Status: Completed Total Allowed Fills: 1 Fills Dispensed: 0 Start: 08-14-2022 take 1 capsule by mo [facility] once daily Multiple Vitamins oral capsule Dose = 1 cap(s), Oral, Daily, 0 Refill(s) Start Date: 08/14/22 Status: Ordered Repeat number: 1 Start: 08-14-2022 take 1 capsule by mo ut once daily Multiple Vitamins oral capsule Dose = 1 cap(s), Oral, Daily, 0 Refill(s) Start Date: 08/14/22 Status: Ordered Multivitamin (Multiple Vitamins) 1 EACH tablet (18 sources) Start: 09-29-2016 take 1 tablet by mouth once daily Multivitamin (Multiple Vitamins) 1 EACH tablet Active 1 EACH PO DAILY September 29, 2016 3:09pm Start: 09-29-2016 take 1 tablet by jennifer th once daily Multivitamin (Multiple Vitamins) 1 EACH tablet Active 1 NMA PO DAILY September 29, 2016 12:00am Complies with drug therapy Start: 09-29-2016 take 1 tablet by jennifer th once daily Start: 09-29-2016 take 1 tablet by jennifer [...] prior to and including day of surgery. omeprazole 20 mg delayed release oral capsule (20 sources) Proton Pump Inhibitor Start: 01-01-2025 omeprazole 20 mg oral delayed release capsule Dose : 20 mg = 1 cap(s), Oral, qDay, # 90 cap(s), 1 Refill(s), Pharmacy: [facility]/pharmacy #[id number], 195, cm, 12/31/24 8:24:00 EDT, Height, kg, 12/31/24 8:24:00 EDT, Dosing Weight Start Date: 01/01/25 Status: Ordered Medication Dispense Status: Completed Quantity: 90.0 Unit: cap(s) Total Allowed Fills: 2 Fills Dispensed: 0 Start: 09-29-2016 End: 02-29-2024 take 1 capsule by mouth once daily Omeprazole (Prilosec) 40 MG capsule Discontinued 40 mg PO DAILY September 29, 2016 12:00am February 29, 2024 8:26am Start: 07-06-2009 End: 11-27-2024 take 1 capsule by mouth once daily Omeprazole 20 mg capsule,delayed release(DR/EC) Discontinued 20 mg PO daily February 29, 2024 12:00am November 27, 2024 1:43pm take 1 tablet by jennifer once daily Omeprazole Magnesium 20 mg tablet Take 20 mg by mouth once daily. Active Comment on above: Take one(1) capsule daily. Take 20 mg by mouth once daily. Probiotic (2 sources) Start: 01-14-2025 Probiotic 1, Daily, OTC, 0 Refill(s) Start Date: 01/14/25 Status: Ordered Medication Dispense Status: Completed Total Allowed Fills: 1 Fills Dispensed: 0 24 hr propranolol hydrochloride 60 mg extended release oral capsule (20 sources) beta-Adrenergic Chaitnaya Start: 03-24-2021 propranolol 60 mg oral capsule, [...] mg by mouth three times daily. rimegepant sulfate (NURTEC ODT ORAL) (16 sources) [...] hours), # 30 tab(s), 11 Refill(s), Pharmacy: [facility], Prostate cancer, 193, cm, 06/13/21 9:23:00... Start [...] Start Date: 02/26/23 Status: Ordered Start: 10-26-2021 End: 01-28-2025 take 1 tablet by mouth once as needed for headache Sumatriptan Succinate 100 mg tablet Discontinued 100 mg PO ONCE as needed for migraine headache October 26, 2021 12:00am January 28, 2025 7:58am Start: 11-15-2020 take 1 tablet by jennifer [...] tablet (20 sources) Phosphodiesterase 5 Inhibitor Start: 07-10-2024 End: 03-12-2025 Cialis 20 mg oral tablet Dose : 20 mg = 1 tab(s), Oral, qDay, # 6 tab(s), 11 Refill(s), Pharmacy: [facility]/pharmacy #[id number], Prostate cancer -- [facility] 04/2021 PSA >10, 195, cm, 12/31/24 8:24:00 EDT, Height, kg, 12/31/24 8:24:00 EDT, Dosing Weight Start Date: 01/01/25 Status: Ordered Medication Dispense Status: Completed Quantity: 6.0 Unit: tab(s) Total Allowed Fills: 12 Fills Dispensed: 0 Indications: Malignant neoplasm of prostate; Start: 01-03-2024 End: 02-29-2024 take 1 tablet [...] qDay, # 6 tab(s), 11 Refill(s), Pharmacy: [facility], Prostate cancer -- [facility] 04/2021 PSA >10, 193, cm, 06/15/23 12:57:00 EST, Height, kg, 06/15/23 12:57:00 EST, Dosing Weight Start Date: 10/09/23 Status: Ordered Start: 08-03-2022 Cialis 20 mg o ral tablet Dose : 20 mg = 1 tab(s), Oral, qDay, # 6 tab(s), 11 Refill(s), Pharmacy: [facility], Prostate cancer -- [facility] 04/2021 PSA >10, 193, cm, 08/03/22 8:13:00 EST, Height, kg, 08/03/22 8:13:00 EST, Dosing Weight Start Date: 08/03/22 Status: Ordered Start: 01-16-2022 Cialis 20 mg o ral tablet Dose : 20 mg = 1 tab(s), Oral, qDay, # 6 tab(s), 11 Refill(s), Pharmacy: [facility], Prostate cancer -- [facility] 04/2021 PSA >10, 193, cm, 01/16/22 7:51:00 EDT, Height Start Date: 01/16/22 Status: Ordered ubidecarenone 400 mg oral capsule (20 sources) Start: 07-18-2024 take 10 capsules by mouth once daily Coenzyme Q10 400 mg capsule Active 400 mg PO daily July 18, 2024 1:00am Complies with drug therapy Start: 10-26-2021 End: 07-18-2024 Coenzyme Q10 (Ultra Coq10) 7 5 mg capsule Discontinued 400 mg PO DAILY October 26, 2021 12:00am July 18, 2024 2:39pm Start: 12-10-2018 Coenzyme Q10 4 00 mg cap Take by mouth. 12/10/2018 Active Start: 03-19-2018 End: 10-02-2022 coenzyme Q10 (COQ-10) 100 mg cap capsule 03/19/2018 10/02/2022 Discontinued (Duplicate Entry) Comment on above: Take by mouth. valsartan 320 mg oral tablet (20 sources) Angiotensin 2 Receptor Chaitanya Start: 10-16-2024 valsartan 320 mg oral tablet Dose : 320 mg = 1 tab(s), Oral, qDay, # 30 tab(s), 0 Refill(s) Start Date: 01/14/25 Status: Ordered Medication Dispense Status: Completed Quantity: 30.0 Unit: tab(s) Total Allowed Fills: 1 Fills Dispensed: 0 Start: 07-18-2024 End: 10-16-2024 take 1 tablet by mouth once daily Valsartan 160 mg tablet Discontinued 160 mg PO daily 90 4 July 18, 2024 1:00am October 16, 2024 12:50pm Start: 02-29-2024 End: 07-18-2024 take 1 tablet by mouth once daily Valsartan 80 mg tablet Discontinued 80 mg PO daily February 29, 2024 12:00am July 18, 2024 3:37pm Start: 01-02-2023 valsartan 80 m g oral tablet Dose : 80 mg = 1 tab(s), Oral, qDay, # 90 tab(s), 3 Refill(s), Pharmacy: [facility], 195, cm, 01/01/23 8:25:00 EDT, Height, kg, 01/01/23 8:25:00 EDT, Dosing Weight Start Date: 01/02/23 Status: Ordered Start: 04-17-2022 valsartan 160 mg oral tablet Dose : 160 mg = 1 tab(s), Oral, qDay, # 90 tab(s), 3 Refill(s), Pharmacy: [facility], 193, cm, 08/14/22 9:29:00 EDT, Height, kg, 08/14/22 9:29:00 EDT, Dosing Weight Start Date: 08/14/22 Status: Ordered Start: 02-09-2022 valsartan 320 mg oral tablet Dose : 320 mg = 1 tab(s), Oral, qDay, increased dose, # 90 tab(s), 1 Refill(s), Pharmacy: [facility], Hypertension, 195, cm, 02/09/22 9:03:00 EDT, Height Start Date: 02/09/22 Status: Ordered Start: 01-09-2022 valsartan 80 m g oral tablet Dose : 80 mg = 1 tab(s), Oral, qHS, # 30 tab(s), 1 Refill(s), Pharmacy: [facility], Hypertension, 195.5, cm, 01/09/22 11:21:00 EDT, Height [...] BID, # 180 cap(s), 3 Refill(s), Pharmacy: [facility]/pharmacy #[id number], 193, cm, 03/03/24 11:13:00 EDT, Height, kg, 03/03/24 11:13:00 EDT, Dosing Weight Start Date: 03/03/24 Status: Ordered Start: 02-29-2024 End: 07-18-2024 take 1 tablet by mouth twice daily Verapamil 180 mg tablet extended release Discontinued 180 mg PO TWICE A DAY February 29, 2024 8:26am July 18, 2024 3:37pm Start: 04-17-2022 take 1 capsule by mo [facility] every hour, then take 1 capsule by mouth twice daily, then take 1 capsule by mouth once daily verapamil 180 mg/24 hours oral capsule, extended release Dose : 180 mg = 1 cap(s), Oral, BID, TAKE ONE CAPSULE BY MOUTH EVERY DAY, # 180 cap(s), 3 Refill(s), Pharmacy: [facility], Hypertension, 193, cm, 04/03/22 8:47:00 EDT, Height, [...] DAY, # 90 cap(s), 3 Refill(s), Pharmacy: [facility], Hypertension, 195, cm, 09/30/21 8:24:00 EDT, Height, [...] DAY, # 90 cap(s), 1 Refill(s), Pharmacy: [facility], Hypertension, 193, cm, 05/09/21 7:55:00 EST, Height, [...] DAY, # 90 cap(s), 1 Refill(s), Pharmacy: [facility], Hypertension, 193, cm, 05/09/21 7:55:00 EST, Height, kg, 05/09/21 7:55:00 EST, Dosing Weight Start Date: 05/17/21 Status: Ordered Start: 05-18-2020 take 1 capsule by mo uth every hour, then take 1 capsule by mouth once daily, then take 1 capsule by mouth once daily verapamil 180 mg/24 hours oral capsule, extended release Dose : 180 mg = 1 cap(s), Oral, qDay, TAKE ONE CAPSULE BY MOUTH EVERY DAY, # 90 cap(s), 3 Refill(s), Pharmacy: [facility], Hypertension, 196.5, cm, 05/18/20 8:09:00 EST, Height, kg, 05/18/20 8:09:00 EST, Dosing Weight Start Date: 05/18/20 Status: Ordered Start: 08-13-2017 End: 02-29-2024 take 1 tablet by mouth once daily Verapamil 180 MG tablet extended release Discontinued 180 mg PO DAILY August 13, 2017 12:00am February 29, 2024 8:29am Start: 05-07-2017 take 1 capsule by [facility] twice daily verapamil ER 180 mg 24 [...] 0 Refill(s) Start Date: 05/09/21 Status: Ordered VITAMIN B COMPLEX ORAL (20 sources) take [...] Comment on above: Take 1 tablet by [facility] once daily. Vitamin B Complex oral capsule (20 sources) Start: 08-14-2022 take 1 capsule by mouth once daily Vitamin B Complex oral capsule Dose = 1 cap(s), Oral, Daily, 0 Refill(s) Start Date: 08/14/22 Status: Ordered Medication Dispense Status: Completed Total Allowed Fills: 1 Fills Dispensed: 0 Start: 08-14-2022 take 1 capsule by [facility] once daily Vitamin B Complex oral capsule Dose = 1 cap(s), Oral, Daily, 0 Refill(s) Start Date: 08/14/22 Status: Ordered Repeat number: 1 Start: 08-14-2022 take 1 capsule by [facility] once daily Vitamin B Complex oral capsule Dose = 1 cap(s), Oral, Daily, 0 Refill(s) Start Date: 08/14/22 Status: Ordered Start: 04-03-2022 take 1 capsule by [facility] once daily Vitamin B Complex oral capsule Dose = 1 cap(s), Oral, Daily, 0 Refill(s) Start Date: 04/03/22 Status: Ordered Start: 01-16-2022 take 1 capsule by [facility] once daily Vitamin B Complex oral capsule Dose = 1 cap(s), Oral, Daily, 0 Refill(s) Start Date: 01/16/22 Status: Ordered Vitamin D3 125 mcg (5000 int l units) oral capsule (7 sources) Start: 06-15-2023 Vitamin D3 125 mcg (5000 intl units) oral capsule Dose : 125 mcg = 1 cap(s), Oral, qDay, # 100 cap(s), 0 Refill(s) Start Date: 06/15/23 Status: Ordered Medication Dispense Status: Completed Quantity: 100.0 Unit: cap(s) Total Allowed Fills: 1 Fills Dispensed: 0 Start: 06-15-2023 Vitamin D3 125 mcg (5000 intl units) oral capsule Dose : 125 mcg = 1 cap(s), Oral, qDay, # 100 cap(s), 0 Refill(s) Start Date: 06/15/23 Status: Ordered Quantity: 100.0 Unit: cap(s) Repeat number: 1 Start: 06-15-2023 Vitamin D3 125 mcg (5000 [...] every eight hours as needed for pain [place] 325- 5 mg oral tablet Dose = 1 tab(s), Oral, q8h, PRN as needed for pain, X 3 day(s), # 9 tab(s), 0 Refill(s), Knee sprain, 116 Start Date: 10/24/21 Stop Date: 10/27/21 Status: Ordered Start: 04-30-2021 End: 05-07-2021 [place] 325- 5 mg oral tablet Dose = 1 tab(s), Oral, q4h, PRN Pain, scale 4-6, X 7 day(s), # 12 tab(s), 0 Refill(s), CA - Cancer of prostate, 111.2 Start Date: 04/30/21 Stop Date: 05/07/21 Status: Ordered Comment on above: Take 1-2 tablets by mouth every 6 hours as needed for pain. amLODIPine 10 mg oral tablet (14 sources) Dihydropyridine Calcium Channel Chaitanya Start: 025 End: take 1 tablet by mouth once daily Amlodipine 10 mg tablet Discontinued 10 mg PO daily 90 3 July 18, 2024 1:00am September 26, 2024 9:54am B-Complex With Vitamin C 1 EACH tablet (14 sources) Start: 017 End: take 1 tablet by mouth once daily B-Complex With Vitamin C 1 EACH tablet Discontinued 1 NMA PO DAILY September 29, 2016 12:00am October 26, 2021 7:43am calcium ascorbate 500 mg oral tablet (17 sources) Start: 022 End: 024 take 1 tablet by mouth once daily Ascorbate Calcium (Vitamin C) 500 mg tablet Discontinued 500 mg PO DAILY October 26, 2021 12:00am February 29, 2024 8:25am docosahexanoic acid/epa (FISH OIL ORAL) (16 sources) End: 023 docosahexanoic acid/epa (FISH OIL ORAL) Indications: Alcoholic cirrhosis of liver without ascites (HCC) Take by mouth. 11/06/2022 Discontinued End: 06-05-2023 docosahexanoic acid/epa (FIS H OIL ORAL) Indications: [...] 14 doses. Fish Oil-Dha-Epa 1 EACH capsule (14 sources) Start: 7 End: 2 take 1 [...] % ) 3 mL injection (XYLOCAINE) Magnesium (17 sources) Start: 10-26-2021 End: 02-29-2024 Magnesium 250 [...] Take 1 tablet by jennifer th as directed. As directed on package multivitamin (DAILY MULTIVITAMIN) ORAL tablet (7 sources) Start: 03-22-2010 take 1 tablet by mouth once daily multivitamin (DAILY MULTIVITAMIN) ORAL tablet Take one(1) tablet daily. 0 03/22/2010 Active Comment on above: Take one(1) tablet d aily. nadolol 80 mg oral tablet (18 sources) beta-Adrenergic Chaitanya Start: 09-29-2016 End: 10-26-2021 [...] 02-29-2024 Naproxen 500 MG tablet,delay ed release (DR/EC) Discontinued 500 mg PO NEEDED as needed for Migraine Symptoms August 13, 2017 12:00am February 29, 2024 8:28am Comment on above: Take 1 tablet by jennifer th twice daily as needed (for migraine). FOR PAIN. TAKE WITH FOOD. polyethylene glycol 3350 43777 mg powder for oral solution (5 sources) Osmotic Laxative Start: 11-24-19 End: 12-08-19 polyethylene glycol 3350 17 gram/dose powder Take [...] ounces of liquid and take as directed. rimegepant 75 mg disintegrating oral tablet (20 sources) Start: 10-27-19 End: 01-29-20 take 1 tablet by mouth once as needed for headache Rimegepant (Nurtec Odt) 75 mg tablet,disintegrati ng Discontinued 75 mg PO ONCE as needed for migraine headache October 26, 2021 12:00am January 28, 2025 7:58am as a single dose Start: 09-30-2021 End: 10-02-2022 Nurtec ODT 75 mg oral tablet , disintegrating Dose : 75 mg = 1 tab(s), Oral, Once, PRN as needed for migraine headache, # 8 tab(s), 0 Refill(s) Start Date: 09/30/21 Status: Ordered Medication Dispense Status: Completed Quantity: 8.0 Unit: tab(s) Total Allowed Fills: 1 Fills Dispensed: 0 Comment on above: Take 1 tablet by jennifer as needed for migraine - Limit 1 tablet per 24 hours rizatriptan 10 mg oral tablet (20 sources) [...] given week. rOPINIRole 0.5 mg oral tablet (17 sources) Nonergot Dopamine Agonist Start: 10-27-19 End: 02-29-20 Ropinirole 0.5 mg tablet Discontinued 0.5 mg PO DAILY 60 1 October 26, 2021 12:00am February 29, 2024 8:28am 1 tab 1-2 hours before bed, on 4th night may increase to 2 tabs spironolactone 25 mg oral tablet (20 sources) Aldosterone Antagonist Start: 08-15-19 End: 02-29-20 take 1 tablet by mouth once daily Spironolactone 25 mg tablet Discontinued 25 mg PO DAILY January 03, 2024 12:00am February 29, 2024 8:28am Start: 04-03-2022 spironolactone 25 mg oral tablet Dose : 25 mg = 1 tab(s), Oral, qDay, # 30 tab(s), 5 Refill(s), Pharmacy: [facility], [facility], , 04/03/22 8:47:00 EDT, Height Start Date: 04/03/22 [...] bedtime. traMADol hydrochloride 50 mg oral tablet (20 sources) Opioid Agonist Start: 3 End: 3 [...] for up to 7 days. for pain. Vitamin B Complex capsule (14 sources) Start: 02-29-2024 End: 01-28-2025 Vitamin B Complex capsule Discontinued 1 NMA PO daily February 29, 2024 12:00am January 28, 2025 7:57am Start: 02-29-2024 Vitamin B Comp sujey capsule Active 1 NMA PO daily February 29, 2024 12:00am Problems Active Problems Problem Classification Problem Date Documented Date Episodic/Chronic Abdominal hernia (20 sources) Hiatal hernia; Translations: [Diaphragmatic hernia without [...] neoplasm of prostate] Onset: 11-06-2022 07-24-2022 Episodic Cardiac dysrhythmias (20 sources) Atrial flutter; Translations: [Unspecified atrial flutter] Onset: 03-09-2025 01-28-2025 Chronic Chronic obstructive pulmonary disease and bronchiectasis (20 sources) Bronchitis 11-20-2020 Episodic Coagulation and hemorrhagic disorders (20 sources) Platelet count below reference range; Translations: [Thrombocytopenia, unspecified] Onset: 06-15-2015 06-15-2015 Chronic Comment on above: d/t liver disease Coronary atherosclerosis and other heart disease (20 sources) Coronary arteriosclerosis; Translations: [Atherosclerotic heart disease of [place] coronary artery without angina pectoris] Onset: 10-08-2024 08-22-2024 Chronic Deficiency and other anemia (20 sources) Pancytopenia; Translations: [Pancytopenia] Onset: 03-14-2010 03-14-2010 Chronic Diseases of white blood cells (17 sources) Leukopenia; Translations: [Decreased white blood cell count, unspecified] Onset: 11-06-2022 Chronic Disorders of lipid metabolism (20 sources) Dyslipidemia; Translations: [Hyperlipidemia, unspecified] Onset: 09-04-2024 [...] [Other internal derangements of left knee] Chronic Malaise and fatigue (20 sources) Asthenia; Translations: [Weakness] Onset: 07-05-2015 07-05-2015 Episodic Osteoarthritis (20 sources) Osteoarthritis of left knee joint; Translations: [Unilateral primary osteoarthritis, left knee] Onset: 11-11-2013 Resolved: 06-28-2015 02-26-2015 Chronic Other and ill-defined heart disease (3 sources) Left ventricular hypertrophy 12-31-2024 Chronic Other circulatory disease (9 sources) Labile hypertension due to being in a clinical environment; Translations: [Elevated blood-pressure reading, without diagnosis of hypertension] 01-21-2025 Episodic Other circulatory disease (1 source) Elevated blood-pressure reading, without diagnosis of hypertension; Translations: [Elevated blood-pressure reading, without diagnosis of hypertension] Onset: 02-06-2025 Episodic Other connective tissue disease (13 sources) History of total knee arthroplasty; Translations: [...] Other hereditary and degenerative nervous system conditions (17 sources) Restless legs; Translations: [Restless legs syndrome] 10-26-2021 Chronic Other hereditary and degenerative nervous system conditions (2 sources) Restless legs syndrome; Translations: [Restless legs syndrome (RLS)] Chronic Other liver diseases (20 sources) Cirrhosis of liver; Translations: [Unspecified cirrhosis of liver] Onset: 08-09-2011 08-09-2011 Chronic Other liver diseases (1 source) Unspecified cirrhosis of liver; Translations: [Unspecified cirrhosis of liver] Onset: 12-23-2024 Chronic Other lower respiratory disease (17 sources) Dyspnea; Translations: [Shortness of breath] 02-10-2025 Episodic Other lower respiratory disease (2 sources) Shortness of breath; Translations: [Shortness of breath] Onset: 02-10-2025 Episodic Other male genital disorders (20 sources) Impotence; Translations: [Male erectile dysfunction, unspecified] [...] conditions (not mental disorders or infectious disease) (3 sources) Computed tomography result abnormal 12-31-2024 Chronic Other screening for suspected conditions (not mental disorders or infectious disease) (20 sources) Platelet count below reference range; Translations: [Raised prostate specific antigen] 03-12-2019 Episodic Residual codes; unclassified (17 sources) Daytime hypersomnia; Translations: [Hypersomnia, unspecified] 10-26-2021 Chronic Residual codes; unclassified (2 sources) Hypersomnia, unspecified; Translations: [Hypersomnia, unspecified] Chronic Residual codes; unclassified (20 sources) Requires vaccination 03-11-2020 Episodic Residual codes; unclassified (19 sources) Needs influenza immunization 04-27-2021 Episodic Residual codes; unclassified (3 sources) History of colonoscopy 12-31-2024 Episodic Spondylosis; intervertebral disc disorders; other back problems (20 sources) Spasm of back muscles; Translations: [Low back pain] 04-03-2016 Episodic Sprains and strains (1 source) Sprain of knee; Translations: [Sprain of unspecified site of unspecified knee, initial encounter] Onset: 10-24-2021 Episodic Unclassified (20 sources) Patient encounter status 12-23-2020 Unclassified (12 sources) Grade A1 albuminuria 07-24-2022 Unclassified (12 sources) Long-term current use of proton pump [...] initial encounter] Onset: 05-06-2021 Resolved: 11-23-2022 Episodic Other gastrointestinal disorders (1 source) Splenomegaly, not elsewhere classified; Translations: [Splenomegaly, not elsewhere classified] Onset: 04-04-2010 Episodic Other gastrointestinal disorders (20 sources) Splenomegaly; Translations: [Splenomegaly, not elsewhere classified] Onset: 04-04-2010 04-04-2010 Episodic Results Test Name Value Interpretation Reference Range Facility Gastroenterology Visit Repor ton 11-05-2025 Gastroenterology Visit Report [facility] [address] [place] [address] OFFICE VISIT Date of Service: 04/08/25 MR#: [id number] Acct: [id number] Name: SRINATH PEPE Rep #: [id number] : 1960 Provider: Dr. Jasson francois MD Age/Sex: 64/M Location: [facility] [place] Status: Signed Intake Vital Signs 03/12/25 07:48 04/08/25 11:52 Height 6 ft 4 in 6 ft 4 in Weight: 247 lb BMI 30.0 BP 153/99 H Blood Pressure Location Rt brachial Position Sitting Pulse 51 L Pulse Oximetry (%) 95 Oxygen Delivery Method room air Intake Visit Reasons: FU Alcoholic cirrhosis of liver Chief Complaint: Cirrhosis Allergies fluoxetine (From Prozac) Allergy (Verified 02/25/25 07:58) Hives sertraline Allergy (Verified 02/25/25 07:58) Rash amlodipine Adverse Reaction (Severe, Verified 02/25/25 07:58) Swelling doxazosin Adverse Reaction (Verified 02/25/25 07:58) Weakness oxycodone Adverse Reaction (Verified 02/25/25 07:58) HICCUPS Have you fallen in the past year?: No [facility] Medical History (Updated 04/08/25 @ 12:[address] Jasson Doan MD) History of cardioversion History of hiatal hernia History of echocardiogram [...] Complaint: Cirrhosis Details: SRINATH PEPE, is a 64 M who presents to the office today [...] 2008. 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 Frye till now. Last blood work from January [address] abdomen and MRI reviewed. No recent history of GI bleed, ascites, jaundice or bleeding. Cirrhosis seems compensate 02.29.24- MELDna 9 OV 05.13.24- Pt well since last visit. Denies abdominal pain, changes in bowels, dizziness, confusion or swelling. No complaints today. OV 12.11.23 - MELDna 7 Abd Elastography 06/13/24 Liver stiffness measures 13.2 kPa compatible with F3-F4 (Moderate to severe liver fibrosis) Metavir score. OV 4.9.25: MELD sodium score 8 from 09/01/2024. Patient had EGD on 07/22/2024. No acute complaint EGD 6.16.25- Erythematous mucosa in the gastric body and duodenum. Path: Gastric body with mild chronic inflammation, Duodenum with gastric mucin cell metaplasia with Julienne gland hyperpla (more content not included)... Normal [facility] Stress Reporton 04-02-2025 Stress Report [facility] [address] [place] [address] MR#: [id number] Acct: [id number] Name: SRINATH PEPE Rep #: [id number] : 1960 64 From: Jonathan Saleem MD Primary Care: Dr. Kevon Mackey, DO Status: REG CLI Referring Dr: Adalgisa Gomez RN FACULTY RN FACULTY-C Sex: M C Stress Test Report Exercise myocardial perfusion stress test. 64-year-old male with a history of coronary artery disease. Stress protocol: Resting EKG demonstrates sinus bradycardia rhythm with a rate of 56 bpm resting blood pressure is 158/90 mmHg. The patient exercised according to the regular George protocol for a total duration of 12 minutes attaining a maximum heart rate of 137 bpm which was 88% of maximum predicted heart rate; the maximum workload was 13.7 metabolic equivalents. At rest there were no ST or T wave changes noted to suggest ischemia and at peak exercise upsloping ST changes only were noted which did not meet the criteria for ischemia. No clinical angina was noted the test was terminated due to the target heart rate being achieved/fatigue. The peak blood pressure was 168/70 mmHg. Rate-pressure product was 21,800. The patient did have a brief period of atrial fibrillation at peak exercise and also supraventricular tachyarrhythmia and spontaneously reverted back to sinus rhythm during recovery Myocardial perfusion protocol. 14.5 mCi of technetium 99m sestamibi was injected at rest. The patient exercised according to regular George protocol for total duration of 12 minutes and at peak exercise 44.4 mCi of technetium 99m sestamibi was injected stress images were obtained stress and rest images were reconstructed in comparing the short axis vertical long and horizontal long axis. Gated images were also obtained. Perfusion SPECT analysis: Review of the stress images demonstrate normal uptake of tracer noted in all areas of the myocardium. The resting images similarly demonstrate normal uptake of tracer noted in all areas of the myocardium. No areas of reversibility are noted to suggest ischemia no previous infarct was noted. Gated SPECT analysis: The gated ejection fraction is 58% %. Conclusion: Normal exercise myocardial perfusion stress test at a high workload. Short paroxysm of atrial fibrillation noted 04/02/252010 Date Jonathan Saleem MD CC: CRISTOPHER Gomez; Dr. Kevon Mackey, Date Dictated: 04/02/252007 Date Transcribed: 04/02/252007 Nickel Plater: [place] Signed Normal [facility] Neurology Visit Reporton Neurology Visit Report [facility] [address] [place] [address], [address] [place] [address] OFFICE VISIT Date of Service: 03/12/25 MR#: [id number] Acct: [id number] Name: SRINATH PEPE Rep #: [id number] : 1960 Provider: Dr. Ge jauregui MD Age/Sex: 64/M Location: [facility] [place]. Status: Signed HPI HPI Details: The patient is a 64-year-old right-handed male who presents for a 6 week follow up on migraines. He established care 01/29/2025 with nurse practitioner Alta Sales who initiated Ajovy monthly inj ections for preventative migraine treatment. At that time he was advised to continue nurtec and tylenol as needed for acute treatment of migraine headaches in reasonable amounts due to diagnosis of alcoholic cirrhosis of the liver. Patient presents by himself for follow-up at this time. Patient continues to have headache 2-3 times per week. He previously had severe headaches which were debilitating but currently his headaches are more bothersome and he would rank them as being 3/10 in severity. They may change in character. Sometimes are migratory aching type headache. They are common migraine. When medications are added the character of the headache seems to change. Currently headache seems to originate as onset of neck pain followed by more typical common migraine symptoms. He does not develop photophobia or phonophobia. He does not experience focal neurologic symptoms. No visual phenomenon noted. Patient has had a recent cardioversion for A-fib. He no longer has episodic palpitations. He is still on Eliquis 5 mg twice daily with plans to have that discontinued soon. He also takes carvedilol Zetia Wegovy hydralazine hydrochlorothiazide omeprazole and valsartan. Patient noted that when he was on amlodipine that his headaches went away completely. Unfortunately he developed ankle edema and that had to be discontinued. He was started on verapamil which did not change his headache character and did not control his hypertension. His father had hypertension late in life and also he had severe headaches likely migraine. As far as can be determined patient does not have coronary artery disease. He will be evaluated for this. I would recommend that patient not use triptan like products such as sumatriptan which causes a hypertensive response and some patients may cause coronary artery spasm. At this point in time patient is relatively functional with some improvement in his migraine with the use of Ajovy. Patient was a former drinker. He has cirrhosis which is gradually correcting. 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 He knows of no particular triggers that cause migraine. ROS: Patient denies bleeding from the nose coughing up blood vomiting blood passing blood in stool or urine. He has had no recent respiratory like or flulike illnesses. He has had a recent cardiac ablation does not have a pacemaker in place and does not have cardiac stents. HEENT: No head traumas no changes in vision no change in hearing. No epistaxis. Respiratory: No shortness of breath cough hemoptysis. Cardiac: Recent cardiac ablation. No chest pain or palpitations. Abdomen: No abdominal pain does not vomit or passed blood in stool has had extensive evaluation for cirrhosis by GI. Extremities: No hot swollen red joints. No trauma to joints. No paralysis. Skin: No lesions noted. Neurologic: No strokes noted. Exam Const Other: Blood pressure 132/82 pulse 68 respiration 16 temperature 98.2 O2 sat 95% on room air. BMI is 30.2%. General appearance that well-developed well-nourished male in no acute distress. Neurologic examination: Mental status: Patient is awake alert oriented x 3. Memory and language functions are intact. Insight and judgment normal. Mood and affect is appropriate. No hallucinations or delusions are identified. CN II-XII: Pupils equal round react to light. Visual loyd full. 4 mm size pupil. Extraocular muscles are intact. No nystagmus. Motor and sensory function face normal. Hearing swallowing phon ation tongue normal. Motor exam: No focal weakness identified. Cerebellar function: No tremors cogwheeling rigidity bradykinesia. Reflexes were difficult to elicit. Biceps and knees. Toe signs not checked. Sensory exam appears to be intact to tactile stimuli. Station gait is normal. Overall patient appears healthy at this time. Assessment and Plan Assessment and Plan (1) Migraine headache: Status: Chronic Qualifiers: Migraine type: chronic migraine (15 or more days per month) without aura Status migrainosus presence: without status migrainosus Intractability: not intractable Qualified Code(s): G43.709 - Chronic migraine without aura, not intractable, without status migrainosus Comment: Patient o (more content not included)... Normal [facility] Procedure Reporton Procedure Report [facility] Medical Records Department [address] [place] [address] Procedure Report 03/02/25 1251 MR#: [id number] Acct: [id number] Name: SRINATH PEPE Rep #: [id number] : 1960 64 From: Fernando Edwards DO PCP: Dr. Kevon Mackey, DO Status:[facility] Location: [facility] Procedures Pulmonary Pulmonary Procedures /Diagnostic Testin Con Sedation Non-invasive Procedural Procedure Information Date of Procedure: 03/02/25 Description of procedure: CONSCIOUS SEDATION REPORT DATE OF SERVICE: March 02, 2025 BRIEF HISTORY OF PRESENT ILLNESS: The patient is a 64-year-old male who presented to [facility] to undergo an elective outpatient cardioversion due to underlying atrial fibrillation. The patient has never previously undergone a cardioversion. He denied any prior anesthetic complications. The patient denied a history of COPD, asthma or obstructive sleep apnea. He is systemically anticoagulated on Eliquis. His last surface echocardiogram demonstrated an ejection fraction of approximately 60%. PHYSICAL EXAMINATION: VITAL SIGNS: Reviewed and were acceptable. GENERAL: The patient is a male, in no apparent distress, speaking in full sentences. HEENT: Normocephalic, atraumatic. Mucous membranes are moist and pink. Good mouth opening noted. Trachea is midline. Good neck mobility. CHEST: S1, S2 irregularly irregular. No murmurs, rubs or gallops were noted. LUNGS: Clear to auscultation bilaterally without appreciable wheezes, rales or rhonchi. ABDOMEN: Soft, nontender, nondistended. Positive bowel sounds. EXTREMITIES: There is no clubbing, cyanosis or edema. ASA Class: II DESCRIPTION OF PROCEDURE: After confirmation of informed consent, the patient's anesthesia plan was reviewed in detail. Propofol was chosen. Risks and benefits were reviewed and the patient agreed to proceed. At 1235, the patient was given his first bolus of propofol. In total, the patient required 100 mg of propofol to achieve an appropriate level of sedation, after which time, he was given a 200 J synchronized cardioversion by Dr. Saleem at the bedside. This was successful in achieving normal sinus rhythm. The patient was monitored until 1251, at which time he reached his baseline mental status and function. The patient tolerated the procedure well. COMPLICATIONS: None ESTIMATED BLOOD LOSS: None RECOMMENDATIONS: Okay to recover in usual fashion. 03/02/25 1253 Cosigner Signature (if applicable): CC: Dr. Jonathan Saleem MD; Dr. Fernando Edwards DO; Dr. Kevon Mackey DO Signed Normal [facility] Procedure Report [facility] Medical Records Department [address] [place] [address] Procedure Report 03/02/25 1242 MR#: [id number] Acct: [id number] Name: SRINATH PEPE Rep #: [id number] : 1960 64 From: Jonathan Saleem MD PCP: Dr. 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 Informed consent was obtained. Patient was seen by Dr. Edwards of the critical care division. Anterior- posterior pads were applied. The patient was administered 100 mg intravenous propofol. 200 J of synchronized biphasic DC cardioversion energy were applied with prompt reversal to sinus rhythm. Patient tolerated the procedure well. Procedure findings: Successful DC cardioversion from atrial fibrillation to sinus rhythm. 03/02/25 1244 Cosigner Signature (if applicable): CC: Dr. Jonathan Saleem MD; Dr. Kevon Mackey DO Signed Normal [facility] Cardiology Visit Reporton Cardiology Visit Report [facility] [address] [place] [address] OFFICE VISIT Date of Service: 02/25/25 MR#: [id number] Acct: [id number] Name: SRINATH PEPE Rep #: [id number] : 1960 Provider: SOHAM Freeman Age/Sex: 64/M Location: [facility] [place] Status: Signed HPI HPI History of Present Illness Surgical H P: Yes Details: Srinath Pepe is a 64-year-old male who presents to office today for follow-up for monitoring her cardiovascular health. He has a history of hypertension and underlying cirrhosis. He has new onset atrial fibrillation. He was evaluated via coronary calcium score 08/12/2024 that demonstrated a total score of 285 with more specific details of left main 17.6, LAD 221, left circumflex 8.03 and RCA 38.7. Upon presentation today, patient reports ongoing significant fatigue reported as feeling run down. He reports feeling like he has the flu and reports this has been going on since going in to [place]. He has been off work since this started due to feeling unwell. He experiences mild SOB feeling like he has to take deep breaths throughout the day at rest and with activity since the atrial fibrillation started. Patient reports a history of migraines and reports these continue at the same rate but have characteristically changed. He reports he can feel his atrial fibrillation with fluttering in his chest. Further ROS below. Intake Vital Signs 01/28/25 07:25 02/25/25 07:48 Height 6 ft 4 in 6 ft 4 in Weight: 247 lb BMI 30.0 BP 121/82 H Blood Pressure Location Lt brachial Position Sitting Respiration 18 Pulse 71 Pulse Source Monitor Pulse Oximetry (%) 97 Intake Visit Reasons: 4 WK FU Receiving Weigher Required: No Is patient in pain?: No Allergies fluoxetine (From Prozac) Allergy (Verified 02/25/25 07:58) Hives sertraline Allergy (Verified 02/25/25 07:58) Rash amlodipine Adverse Reaction (Severe, Verified 02/25/25 07:58) Swelling doxazosin Adverse Reaction (Verified 02/25/25 07:58) Weakness oxycodone Adverse Reaction (Verified 02/25/25 07:58) HICCUPS Medications ???Medication ???Instructions ???Recorded ???Confirmed ???Type multivitamin (Multiple Vitamins 1 ea PO DAILY 09/29/16 02/25/25 Hi story tablet) cholecalciferol (vitamin D3) 125 125 mcg PO QDAY 02/29/24 02/25/25 History mcg (5,000 unit) tablet tadalafil 20 mg tablet 20 mg PO DAILY PRN sexual activity 07/10/24 02/25/25 History carvedilol 25 mg tablet 25 mg PO BID #180 tabs 07/18/24 Rx coenzyme Q10 400 mg capsule 400 mg PO QDAY 07/18/24 02/25/25 H istory lactobacillus combination no.4 3 3,000 mmu cells PO QDAY 07/18/24 0 02/25/25 History billion cell capsule (Probiotic) ezetimibe 10 mg tablet (Zetia) 10 mg PO QDAY #90 tabs 10/16/24 Rx hydrochlorothiazide 25 mg tablet 25 mg PO QDAY #90 tabs 10/16/24 Rx valsartan 320 mg tablet 320 mg PO QDAY #90 tabs 10/16/24 0 02/25/25 Rx omeprazole 20 mg capsule,delayed 20 mg PO QDAY 90 days #90 caps 02/25/25 Rx release apixaban 5 mg tablet (Eliquis) 5 mg PO BID ordered by Dr. Mackey 01/20/25 02/25/25 History hydralazine 50 mg tablet 50 mg PO BID #60 tabs 01/22/25 Rx fremanezumab-vfrm 225 mg/1.5 mL 225 mg (1.5 mL) subcut QMONTH #1.5 01/29/25 02/25/25 Rx subcutaneous auto-injector (Ajovy) mL Ejection fraction %: 60 Have you fallen in the past year?: No PFSH Medical History History of hiatal hernia History of echocardiogram [...] Number of servings: 2 ROS Const Const: Positive (more content not included)... Normal [facility] AFP, Tumor Markeron 02-12-20 AFP TUMOR NERIS 4.7 ng/mL Normal 0.0-8.4 [facility] Comment on above: Order Comment: N Result Comment: [employer] Electrochemiluminescence Immunoassay (ECLIA) Values obtained with different assay methods or kits cannot be used interchangeably. Results cannot be interpreted as absolute evidence of the presence or absence of malignant disease. This test is not interpretable in females. Performed at: [address] [id number] Fish Rod Maker: Edilberto Cooley PhD, Phone: [phone] Performed By: #### L 2350.0500, L300.8930, L100.0100, I014.6372 ####[facility] [address] [place], [address] Absolute lymphocyte countOrd ered By: Adalgisa Gomez on 02-10-2025 Lymphocytes Auto (Unsp spec) [#/Vol] 1.01 10*3/uL 0.83-4.51 [facility] Absolute neutrophil countOrd ered By: Adalgias Gomez on 02-10-2025 Neutrophils (Bld) [#/Vol] 3.2 10*3/uL 2.0-7.7 [facility] Anion gap in Serum or Plasma Ordered By: Adalgisa Gomez on 02-10-2025 Anion gap [Moles/Vol] 9 mmol/L 5-15 [facility] Automated lymphocyte count a s percentage of total leukocytesOrdered By: Adalgisa Gomez on 02-10-2025 Lymphocytes/100 WBC Auto (Unsp spec) 21.0 % - [facility] BUN/creatinine ratioOrdered By: Adalgisa Gomez on 02-10-2025 Urea nitrogen/Creatinine [Mass ratio] 18.8 mg/mg 10-20 [facility] Basophil percentageOrdered B y: Adalgisa Gomez on 02-10-2025 Basophils/100 WBC (Bld) 0.6 % 0-1 [facility] Bilirubin, totalOrdered By: Adalgisa Gomez on 02-10-2025 Bilirubin [Mass/Vol] 0.88 mg/dL 0.00-1.30 [facility] CBC W/Diff, Automatedon Absolute Lymph 1.01 X10 3/uL Normal 0.83-4.51 [facility] Comment on above: Order Comment: SEND CBCD RESULTS TO [facility] Performed By: #### L 500.4050, L503.7505, L100.0100 ####[facility] [address] [place], [address] Absolute Neut 3.2 X10 3/uL Normal 2.0-7.7 [facility] Comment on above: Order Comment: SEND CBCD RESULTS TO [facility] Performed By: #### L 500.4050, L503.7505, L100.0100 ####[facility] [address] [place], [address] Basophils/100 WBC (Bld) 0.6 % Normal 0-1 [facility] Comment on above: Order Comment: SEND CBCD RESULTS TO [facility] Performed By: #### L 500.4050, L503.7505, L100.0100 ####[facility] [address] [place], [address] Eosinophils/100 WBC (Bld) 1.3 % Normal 0-5 [facility] Comment on above: Order Comment: SEND CBCD RESULTS TO [facility] Performed By: #### L 500.4050, L503.7505, L100.0100 ####[facility] [address] [place], [address] Erythrocyte distribution width (RBC) [Ratio] 14.3 % Normal 11.6-14.6 [facility] Comment on above: Order Comment: SEND CBCD RESULTS TO [facility] Performed By: #### L 500.4050, L503.7505, L100.0100 ####[facility] [address] [place], [address] Hematocrit (Bld) [Volume fraction] 45.4 % Normal 40-54 [facility] Comment on above: Order Comment: SEND CBCD RESULTS TO [facility] Performed By: #### L 500.4050, L503.7505, L100.0100 ####[facility] [address] [place], [address] Hemoglobin (Bld) [Mass/Vol] 15.3 g/dL Normal 13.0-16.5 [facility] Comment on above: Order Comment: SEND CBCD RESULTS TO [facility] Performed By: #### L 500.4050, L503.7505, L100.0100 ####[facility] [address] [place], [address] IG% 0.400 Normal 0.0-0.9 [facility] Comment on above: Order Comment: SEND CBCD RESULTS TO [facility] Result Comment: IG% - Immature Granulocytes (promyelocytes, myelocytes and metamyelocytes) > 1% indicates that a LEFT SHIFT is Present. Performed By: #### L 500.4050, L503.7505, L100.0100 ####[facility] [address] [place], [address] Lymphocytes/100 WBC (Bld) 21.0 % Normal 19-41 [facility] Comment on above: Order Comment: SEND CBCD RESULTS TO [facility] Performed By: #### L 500.4050, L503.7505, L100.0100 ####[facility] [address] [place], [address] MCH (RBC) [Entitic mass] 28.9 pg Normal 27.0-32.0 [facility] Comment on above: Order Comment: SEND CBCD RESULTS TO [facility] Performed By: #### L 500.4050, L503.7505, L100.0100 ####[facility] [address] [place], [address] MCHC (RBC) [Mass/Vol] 33.7 g/dL Normal 32-36 [facility] Comment on above: Order Comment: SEND CBCD RESULTS TO [facility] Performed By: #### L 500.4050, L503.7505, L100.0100 ####[facility] [address] [place], [address] MCV (RBC) [Entitic vol] 85.7 fL Normal 80-94 [facility] Comment on above: Order Comment: SEND CBCD RESULTS TO [facility] Performed By: #### L 500.4050, L503.7505, L100.0100 ####[facility] [address] [place], [address] Monocytes/100 WBC (Bld) 11.0 % High 0-10 [facility] Comment on above: Order Comment: SEND CBCD RESULTS TO [facility] Performed By: #### L 500.4050, L503.7505, L100.0100 ####[facility] [address] [place], [address] Neutrophils/100 WBC (Bld) 65.7 % Normal 47-70 [facility] Comment on above: Order Comment: SEND CBCD RESULTS TO [facility] Performed By: #### L 500.4050, L503.7505, L100.0100 ####[facility] [address], [address] Nucleated RBC (Bld) [#/Vol] 0 10*3/uL Normal 0-5 [facility] Comment on above: Order Comment: SEND CBCD RESULTS TO [facility] Performed By: #### L 500.4050, L503.7505, L100.0100 ####[facility] [address] [place], [address] Platelet mean volume (Bld) [Entitic vol] 11.0 fL Normal 6.2-12.0 [facility] Comment on above: Order Comment: SEND CBCD RESULTS TO [facility] Performed By: #### L 500.4050, L503.7505, L100.0100 ####[facility] [address] [place], [address] Platelets (Bld) [#/Vol] 117 10*3/uL Low 150-450 [facility] Comment on above: Order Comment: SEND CBCD RESULTS TO [facility] Performed By: #### L 500.4050, L503.7505, L100.0100 ####[facility] [address] [place], [address] RBC (Bld) [#/Vol] 5.30 10*6/uL Normal 4.6-6.2 [facility] Comment on above: Order Comment: SEND CBCD RESULTS TO [facility] Performed By: #### L 500.4050, L503.7505, L100.0100 ####[facility] [address] [place], [address] RDW SD 45.0 fl High 35.1-43.9 [facility] Comment on above: Order Comment: SEND CBCD RESULTS TO [facility] Performed By: #### L 500.4050, L503.7505, L100.0100 ####[facility] [address] [place], [address] WBC (Bld) [#/Vol] 4.8 10*3/uL Normal 4.4-11.0 [facility] Comment on above: Order Comment: SEND CBCD RESULTS TO [facility] Performed By: #### L 500.4050, L503.7505, L100.0100 ####[facility] [address] [place], [address] Absolute Neut Normal 2.0-7.7 [facility] Comment on above: Result Comment: ON O THER ORDER Performed By: #### L 3300.0700, L300.3900, L100.0100, L501.6710 ####[facility] [address] [place], [address] HCT Normal 40-54 [facility] Comment on above: Result Comment: ON O THER ORDER Performed By: #### L 3300.0700, L300.3900, L100.0100, L501.6710 ####[facility] [address] [place], [address] HGB Normal 13.0-16.5 [facility] Comment on above: Result Comment: ON O THER ORDER Performed By: #### L 3300.0700, L300.3900, L100.0100, L501.6710 ####[facility] [address] [place], [address] MCH Normal 27.0-32.0 [facility] Comment on above: Result Comment: ON O THER ORDER Performed By: #### L 3300.0700, L300.3900, L100.0100, L501.6710 ####[facility] [address] [place], [address] MCHC Normal 32-36 [facility] Comment on above: Result Comment: ON O THER ORDER Performed By: #### L 3300.0700, L300.3900, L100.0100, L501.6710 ####[facility] [address] [place], [address] MCV Normal 80-94 [facility] Comment on above: Result Comment: ON O THER ORDER Performed By: #### L 3300.0700, L300.3900, L100.0100, L501.6710 ####[facility] [address] [place], [address] NEUT% Normal 47-70 [facility] Comment on above: Result Comment: ON O THER ORDER Performed By: #### L 3300.0700, L300.3900, L100.0100, L501.6710 ####[facility] [address] [place], [address] PLT Normal 150-450 [facility] Comment on above: Result Comment: ON O THER ORDER Performed By: #### L 3300.0700, L300.3900, L100.0100, L501.6710 ####[facility] [address] [place], [address] RBC Normal 4.6-6.2 [facility] Comment on above: Result Comment: ON O THER ORDER Performed By: #### L 3300.0700, L300.3900, L100.0100, L501.6710 ####[facility] [address] [place], [address] RDW CV Normal 11.6-14.6 [facility] Comment on above: Result Comment: ON O THER ORDER Performed By: #### L 3300.0700, L300.3900, L100.0100, L501.6710 ####[facility] [address] [place], [address] RDW SD Normal 35.1-43.9 [facility] Comment on above: Result Comment: ON O THER ORDER Performed By: #### L 3300.0700, L300.3900, L100.0100, L501.6710 ####[facility] [address] [place], [address] WBC Normal 4.4-11.0 [facility] Comment on above: Result Comment: ON O THER ORDER Performed By: #### L 3300.0700, L300.3900, L100.0100, L501.6710 ####[facility] [address] [place], [address] CRPon 02-10-2025 C-REACTIVE PROT < 3.00 Normal 0.0-3.0 [facility] Comment on above: Performed By: #### L 3300.0700, L300.3900, L100.0100, L501.6710 ####[facility] [address] [place], [address] Carbon dioxide, total [Moles /volume] in Central venous bloodOrdered By: Adalgisa Gomez on 02-10-2025 CO2 [Moles/Vol] 26.7 mmol/L 21.0-32.0 [facility] Cardiology Visit Reporton Cardiology Visit Report [facility] [place] [address] [place] [address] OFFICE VISIT Date of Service: 02/10/25 MR#: [id number] Acct: [id number] Name: SRINATH PEPE Rep #: [id number] : 1960 Provider: CRISTOPHER ponce Age/Sex: 64/M [place] [facility] [place]: Signed HPI HPI History of Present Illness Details: Srinath Peep is a 64-year-old male who presents to office today for an urgent cardiovascular follow-up visit. He has a history of hypertension and underlying cirrhosis. He has new onset atrial fibrillation. He was evaluated via coronary calcium score 08/12/2024 that demonstrated a total score of 285 with more specific details of left main 17.6, LAD 221, left circumflex 8.03 and RCA 38.7. From a cardiac standpoint, the patient is doing well. He does acknowledge a fluttering sensation. He denies any chest pain, pressure or heaviness. He does acknowledge SOB, and Orthopnea. He denies PND. He does not have bleeding issues; no blood in urine, stool, or nosebleeds. He does acknowledge fatigue. He denies any decrease in energy level, myalgias, or claudication. He does not have edema, or sudden weight gain. He does acknowledge occasional lightheadedness. He denies dizziness, syncopal or near syncopal episodes, and headaches. Intake Vital Signs 01/29/25 13:10 02/10/25 10:28 02/10/25 10:28 Height 6 ft 4 in 6 ft 4 in 6 ft 4 in Weight: 247 lb BMI 30.0 BP 120/60 Blood Pressure Location Rt brachial Position Sitting Respiration 16 Pulse 60 Pulse Source Monitor Intake Visit Reasons: symptomatic a-fib Receiving Weigher Required: No Is patient in pain?: No Allergies fluoxetine (From Prozac) Allergy (Verified 02/10/25 10:37) Hives sertraline Allergy (Verified 02/10/25 10:37) Rash amlodipine Adverse Reaction (Severe, Verified 02/10/25 10:37) Swelling doxazosin Adverse Reaction (Verified 02/10/25 10:37) Weakness oxycodone Adverse Reaction (Verified 02/10/25 10:37) HICCUPS Medications ???Medication ???Instructions ???Recorded ???Confirmed ???Type multivitamin (Multiple Vitamins 1 ea PO DAILY 09/29/16 02/10/25 Hi story tablet) cholecalciferol (vitamin D3) 125 125 mcg PO QDAY 02/29/24 02/10/25 History mcg (5,000 unit) tablet tadalafil 20 mg tablet 20 mg PO DAILY PRN sexual activity 07/10/24 02/10/25 History carvedilol 25 mg tablet 25 mg PO BID #180 tabs 07/18/24 Rx coenzyme Q10 400 mg capsule 400 mg PO QDAY 07/18/24 02/10/25 H istory lactobacillus combination no.4 3 3,000 mmu cells PO QDAY 07/18/24 0 02/10/25 History billion cell capsule (Probiotic) ezetimibe 10 mg tablet (Zetia) 10 mg PO QDAY #90 tabs 10/16/24 Rx hydrochlorothiazide 25 mg tablet 25 mg PO QDAY #90 tabs 10/16/24 Rx valsartan 320 mg tablet 320 mg PO QDAY #90 tabs 10/16/24 0 02/10/25 Rx omeprazole 20 mg capsule,delayed 20 mg PO QDAY 90 days #90 caps 02/10/25 Rx release apixaban 5 mg tablet (Eliquis) 5 mg PO BID ordered by Dr. Mackey 01/20/25 02/10/25 History hydralazine 50 mg tablet 50 mg PO BID #60 tabs 01/22/2502/26 Rx fremanezumab-vfrm 225 mg/1.5 mL 225 mg (1.5 mL) subcut QMONTH #1.5 01/29/25 02/10/25 Rx subcutaneous auto-injector (Ajovy) mL Ejection fraction %: 60 Have you fallen in the past year?: No PFSH Medical History History of hiatal hernia History of echocardiogram [...] Number of servings: 2 ROS Const Const: Positive for fatigue; Negative for weakness, fever(s), headache(s), chills, frequent falls, weight gain (more content not included)... Normal [facility] Chloride assayOrdered By: Jarett Gomez on 02-10-2025 Chloride [Moles/Vol] 103 mmol/L 98-108 [facility] Comprehensive Metabolic Prof ilon 02-10-2025 Albumin [Mass/Vol] 4.3 g/dL Normal 3.4-4.8 [facility] Comment on above: Order Comment: PLEAS E SEND BMP RESULTS TO PATRICIA, AND CMP RESULTS TOCHAND. Performed By: #### L 500.4050, L503.7505, L100.0100 ####[facility] [address] [place], [address] Albumin/Globulin [Mass ratio] 1.7 {ratio} Normal 0.9-2.4 [facility] Comment on above: Order Comment: PLEAS E SEND BMP RESULTS TO PATRICIA, AND CMP RESULTS TOCHAND. Performed By: #### L 500.4050, L503.7505, L100.0100 ####[facility] [address] [place], [address] ALK PHOS 55 U/L Normal 40-129 [facility] Comment on above: Order Comment: PLEAS E SEND BMP RESULTS TO PATRICIA, AND CMP RESULTS TOCHAND. Performed By: #### L 500.4050, L503.7505, L100.0100 ####[facility] [address] [place], [address] ALT [Catalytic activity/Vol] 39 U/L Normal <=46 [facility] Comment on above: Order Comment: PLEAS E SEND BMP RESULTS TO PATRICIA, AND CMP RESULTS TOCHAND. Performed By: #### L 500.4050, L503.7505, L100.0100 ####[facility] [address] [place], [address] AST [Catalytic activity/Vol] 35 U/L Normal <=37 [facility] Comment on above: Order Comment: PLEAS E SEND BMP RESULTS TO GOMEZ, AND CMP RESULTS TOCHAND. Performed By: #### L 500.4050, L503.7505, L100.0100 ####[facility] [address] [place], [address] Bilirubin [Mass/Vol] 0.88 mg/dL Normal 0.00-1.30 [facility] Comment on above: Order Comment: PLEAS E SEND BMP RESULTS TO GOMEZ, AND CMP RESULTS TOCHAND. Performed By: #### L 500.4050, L503.7505, L100.0100 ####[facility] [address] [place], [address] BUN/CRE 18.8 RATIO Normal 10-20 [facility] Comment on above: Order Comment: PLEAS E SEND BMP RESULTS TO GOMEZ, AND CMP RESULTS TOCHAND. Performed By: #### L 500.4050, L503.7505, L100.0100 ####[facility] [address] [place], [address] Calcium [Mass/Vol] 9.5 mg/dL Normal 7.6-11.0 [facility] Comment on above: Order Comment: PLEAS E SEND BMP RESULTS TO GOMEZ, AND CMP RESULTS TOCHAND. Performed By: #### L 500.4050, L503.7505, L100.0100 ####[facility] [address] [place], [address] Chloride [Moles/Vol] 103 mmol/L Normal 98-108 [facility] Comment on above: Order Comment: PLEAS E SEND BMP RESULTS TO GOMEZ, AND CMP RESULTS TOCHAND. Performed By: #### L 500.4050, L503.7505, L100.0100 ####[facility] [address] [place], [address] CO2 [Moles/Vol] 26.7 mmol/L Normal 21.0-32.0 [facility] Comment on above: Order Comment: PLEAS E SEND BMP RESULTS TO PATRICIA, AND CMP RESULTS TOCHAND. Performed By: #### L 500.4050, L503.7505, L100.0100 ####[facility] [address] [place], [address] Creatinine [Mass/Vol] 1.01 mg/dL Normal 0.70-1.20 [facility] Comment on above: Order Comment: PLEAS E SEND BMP RESULTS TO PATRICIA, AND CMP RESULTS TOCHAND. Performed By: #### L 500.4050, L503.7505, L100.0100 ####[facility] [address] [place], [address] GAP 9 Normal 5-15 [facility] Comment on above: Order Comment: PLEAS E SEND BMP RESULTS TO PATRICIA, AND CMP RESULTS TOCHAND. Performed By: #### L 500.4050, L503.7505, L100.0100 ####[facility] [address] [place], [address] GFR/1.73 sq M.predicted among non-blacks MDRD (S/P/Bld) [Vol rate/Area] 83 mL/min/{1.73_m2} Normal >60 [facility] Comment on above: Order Comment: PLEAS E SEND BMP RESULTS TO PATRICIA, AND CMP RESULTS TOCHAND. Result Comment: mL/m in/1.73m2 CKD-EPI Creatinine Equation (2020) Performed By: #### L 500.4050, L503.7505, L100.0100 ####[facility] [address] [place], [address] Globulin (S) [Mass/Vol] 2.6 g/dL Normal 2.2-4.2 [facility] Comment on above: Order Comment: PLEAS E SEND BMP RESULTS TO PATRICIA, AND CMP RESULTS TOCHAND. Performed By: #### L 500.4050, L503.7505, L100.0100 ####[facility] [address] [place], [address] Glucose [Mass/Vol] 103 mg/dL High 70-99 [facility] Comment on above: Order Comment: PLEAS E SEND BMP RESULTS TO GOMEZ, AND CMP RESULTS TOCHAND. Performed By: #### L 500.4050, L503.7505, L100.0100 ####[facility] [address] [place], [address] Potassium [Moles/Vol] 4.0 mmol/L Normal 3.3-5.1 [facility] Comment on above: Order Comment: PLEAS E SEND BMP RESULTS TO GOMEZ, AND CMP RESULTS TOCHAND. Performed By: #### L 500.4050, L503.7505, L100.0100 ####[facility] [address] [place], [address] Sodium [Moles/Vol] 139 mmol/L Normal 133-145 [facility] Comment on above: Order Comment: PLEAS E SEND BMP RESULTS TO GOMEZ, AND CMP RESULTS TOCHAND. Performed By: #### L 500.4050, L503.7505, L100.0100 ####[facility] [address] [place], [address] T PROT 6.9 g/dL Normal 5.9-8.4 [facility] Comment on above: Order Comment: PLEAS E SEND BMP RESULTS TO GOMEZ, AND CMP RESULTS TOCHAND. Performed By: #### L 500.4050, L503.7505, L100.0100 ####[facility] [address] [place], [address] Urea nitrogen [Mass/Vol] 19 mg/dL Normal 4-19 [facility] Comment on above: Order Comment: PLEAS E SEND BMP RESULTS TO GOMEZ, AND CMP RESULTS TOCHAND. Performed By: #### L 500.4050, L503.7505, L100.0100 ####[facility] [address] [place], [address] Eosinophil percentageOrdered By: Adalgisa Gomez on 02-10-2025 Eosinophils/100 WBC (Bld) 1.3 % 0-5 [facility] Erythrocyte distribution wid th ratioOrdered By: Adalgisa Gomez on 02-10-2025 Erythrocyte distribution width (RBC) [Ratio] 14.3 % 11.6-14.6 [facility] Erythrocyte distribution wid th standard deviationOrdered By: Adalgisa Gomez on 02-10-2025 Erythrocyte distribution width (RBC) [Ratio] 45.0 fl High 35.1-43.9 [facility] Glomerular filtration rate ( GFR) estimation/1.73 sq m using serum, plasma, or whole bOrdered By: Adalgisa Gomez on 02-10-2025 GFR/1.73 sq M.predicted among non-blacks MDRD (S/P/Bld) [Vol rate/Area] 83 mL/min/{1.73_m2} >60 [facility] Comment on above: mL/min/1.73m2 CKD-EP I Creatinine Equation (2020) Hematocrit Auto (Bld) [Volum e fraction]Ordered By: Adalgisa Gomez on 02-10-2025 Hematocrit (Bld) [Volume fraction] 45.4 % 40-54 [facility] Hemoglobin measurementOrdere d By: Adalgisa Gomez on 02-10-2025 Hemoglobin (Bld) [Mass/Vol] 15.3 g/dL 13.0-16.5 [facility] Immature granulocytes/100 WB C Auto (Bld)Ordered By: Adalgisa Gomez on 02-10-2025 Immature granulocytes/100 WBC (Bld) 0.400 % 0.0-0.9 [facility] Comment on above: IG% - Immature Granu locytes (promyelocytes, myelocytes and metamyelocytes) > 1% indicates that a LEFT SHIFT is Present. International normalized rat io (INR) calculationOrdered By: Jasson Doan on 02-10-2025 INR Coag (Bld) [Relative time] 1.2 {INR} [facility] Laboratory - Chemistry and C hemistry - challengeOrdered By: Adalgisa oGmez on 02-10-2025 AST [Catalytic activity/Vol] 35 U/L <38 [facility] MCV (mean corpuscular volume ) determinationOrdered By: Adalgisa Gomez on 02-10-2025 MCV (RBC) [Entitic vol] 85.7 fL 80-94 [facility] Mean corpuscular hemoglobin (MCH) determinationOrdered By: Adalgisa Gomez on 02-10-2025 MCH (RBC) [Entitic mass] 28.9 pg 27.0-32.0 [facility] Mean corpuscular hemoglobin concentration (MCHC) determinationOrdered By: Adalgisa Gomez on 02-10-2025 MCHC (RBC) [Mass/Vol] 33.7 g/dL 32-36 [facility] Mean platelet volume determi nationOrdered By: Adalgisa Gomez on 02-10-2025 Platelet mean volume (Bld) [Entitic vol] 11.0 fL 6.2-12.0 [facility] Monocyte percentageOrdered B y: Adalgisa Gomez on 02-10-2025 Monocytes/100 WBC (Bld) 11.0 % High 0-10 [facility] Natriuretic peptide.B prohor alondra N-Terminal [Mass/volume] in Serum or PlasmaOrdered By: Adalgisa Gomez on 02-10-2025 Natriuretic peptide.B prohormone N-Terminal [Mass/Vol] 713 pg/mL <900 [facility] Comment on above: Heart Failure Unlike ly: < 300 pg/mLHeart Failure Likely< 50 Years: > 450 pg/mL50-75 Years: > 900 pg/mL>75 Years: > 1800 pg/mL Neutrophil percentageOrdered By: Adalgisa Gomez on 02-10-2025 Neutrophils/100 WBC (Bld) 65.7 % 47-70 [facility] Nucleated red blood cell per centageOrdered By: Adalgisa Gomez on 02-10-2025 Nucleated RBC/100 WBC (Bld) [Ratio] 0 % 0-5 [facility] Platelet countOrdered By: Jarett Gomez on 02-10-2025 Platelets (Bld) [#/Vol] 117 10*3/uL Low 150-450 [facility] Potassium measurement (mass/ volume)Ordered By: Adalgisa Gomez on 02-10-2025 Potassium (Unsp spec) [Mass/Vol] 4.0 mmol/L 3.3-5.1 [facility] Pro- Brain NATRIURETIC PEPTI Antonia 02-10-2025 Natriuretic peptide B (Bld) [Mass/Vol] 713 pg/mL Normal <=900 [facility] Comment on above: Order Comment: ADEEL Paulino SEND BMP RESULTS TO PATRICIA, AND CMP RESULTS TOCHAND. Result Comment: Hear t Failure Unlikely: < 300 pg/mL Heart Failure Likely < 50 Years: > 450 pg/mL 50-75 Years: > 900 pg/mL >75 Years: > 1800 pg/mL Performed By: #### L 500.4050, L503.7505, L100.0100 ####[facility] [address] [place], [address] Prothrombin Time w/INRon INR Coag (PPP) [Relative time] 1.2 {INR} Normal [facility] Comment on above: Performed By: #### L 3300.0700, L300.3900, L100.0100, L501.6710 ####[facility] [address] [place], [address] PT Coag (PPP) [Time] 15.2 s High 11.7-14.9 [facility] Comment on above: Performed By: #### L 3300.0700, L300.3900, L100.0100, L501.6710 ####[facility] [address] [place], [address] Prothrombin timeOrdered By: Jasson oDan on 02-10-2025 PT Coag (PPP) [Time] 15.2 s High 11.7-14.9 [facility] RBC Auto (Bld) [#/Vol]Ordere d By: Adalgisa Gomez on 02-10-2025 RBC (Bld) [#/Vol] 5.30 10*6/uL 4.6-6.2 [facility] Serum creatinine measurement (mass/volume)Ordered By: Adalgisa Gomez on 02-10-2025 Creatinine [Mass/Vol] 1.01 mg/dL 0.70-1.20 [facility] Serum globulin measurementOr dered By: Adalgisa Gomez on 02-10-2025 Globulin (S) [Mass/Vol] 2.6 g/dL 2.2-4.2 [facility] Serum glucose measurement (m ass/volume)Ordered By: Adalgisa Gomez on 02-10-2025 Glucose [Mass/Vol] 103 mg/dL High 70-99 [facility] Serum or plasma C reactive p rotein measurement (mass/volume)Ordered By: Jasson Doan on 02-10-2025 CRP [Mass/Vol] mg/L 0.0-3.0 [facility] Serum or plasma alanine crowe otransferase (ALT) measurementOrdered By: Adalgisa Gomez on 02-10-2025 ALT [Catalytic activity/Vol] 39 U/L <47 [facility] Serum or plasma albumin martha urement (mass/volume)Ordered By: Adalgisa Gomez on 02-10-2025 Albumin [Mass/Vol] 4.3 g/dL 3.4-4.8 [facility] Serum or plasma albumin/glob ulin mass ratioOrdered By: Adalgisa Gomez on 02-10-2025 Albumin/Globulin [Mass ratio] 1.7 {ratio} 0.9-2.4 [facility] Serum or plasma alkaline filomena sphatase measurementOrdered By: Adalgisa Gomez on 02-10-2025 ALP [Catalytic activity/Vol] 55 U/L 40-129 [facility] Serum or plasma calcium martha urement (mass/volume)Ordered By: Adalgisa Gomez on 02-10-2025 Calcium [Mass/Vol] 9.5 mg/dL 7.6-11.0 [facility] Serum or plasma urea nitroge n measurement (mass/volume)Ordered By: Adalgisa Gomez on 02-10-2025 Urea nitrogen [Mass/Vol] 19 mg/dL 4-19 [facility] Sodium levelOrdered By: Abril Gomez on 02-10-2025 Sodium [Moles/Vol] 139 mmol/L 133-145 [facility] Total proteinOrdered By: Awais Gomez on 02-10-2025 Protein [Mass/Vol] 6.9 g/dL 5.9-8.4 [facility] White blood cell (WBC) count Ordered By: Adalgisa Gmoez on 02-10-2025 WBC (Bld) [#/Vol] 4.8 10*3/uL 4.4-11.0 [facility] Neurology Visit Reporton Neurology Visit Report [facility] [address], [address] [place] [address] OFFICE VISIT Date of Service: 01/29/25 MR#: [id number] Acct: [id number] Name: SRINATH PEPE Rep #: [id number] : 1960 Provider: CRISTOPHER rider Age/Sex: 64/M Location: [facility] Status: Signed with Addenda ADDENDUM by CRISTOPHER Sales on 01/29/25 at 1446 Assessment and Plan Assessment and Plan (1) Chronic migraine: Status: Chronic (2) New onset atrial fibrillation: Status: Acute (3) Hypertension: Status: Chronic (4) Alcoholic cirrhosis of liver: Status: Chronic Qualifiers: Ascites presence: without ascites Qualified Code(s): K70.30 - Alcoholic cirrhosis of liver without ascites Medications: New fremanezumab-vfrm (Ajovy) 225 mg (1.5 mL) subcut QMONTH 1.5 mL 1RF 01/29/25 1446 Date Alta Sales cc: * Signed HPI HPI Chief Complaint: Establish Care Details: History of present illness: Mr. Pepe is a 64-year-old right-handed male who presents unaccompanied to neurology today 01/29/2025 to establish care for chronic migraines. He was previously being seen by neurologist Dr. Anita Barnhart at [facility]. Aside from migraine, pertinent past medical history includes alcoholic liver cirrhosis (sober since 2008), trace esophageal varices, thrombocytopenia d/t liver disease, hypertension, new onset atrial fibrillation (01/16/2025) now on Eliquis, restless leg syndrome, dyslipidemia, GERD, and prostate cancer. He has never been a smoker and does not use any illicit drugs. There is no history of head trauma. Family history is positive for aneurysms in both father (cardiac) and mother (brain). His father also had migraines. Onset of migraines was around the year 2014. Headaches are described as throbbing located in the frontal region, often times unilateral on the right side. Without medication, headache can last up to 3 days. He often times has associated symptoms of stiff neck, brain fog, and difficulty focusing his vision. Patient denies neck pain otherwise. He denied light/sound sensitivity. He denied presence of nausea/vomiting. He has not identified any triggers for migraines. Position changes seem to be unrelated to migraine occurrence. At times he wakes up with a migraine and other times it develops throughout the day. Patient had a sleep study conducted in 2021 that was negative for sleep apnea but reported presence of periodic limb movements attributed to restless legs syndrome. Patient reports good quality sleep of at least 8 hours per night. Caffeine intake includes 3 cups of coffee in the morning. He drinks approximately 60-70 ounces of water per day. Recently, patient was diagnosed with atrial fibrillation. He was initiated on Eliquis with plans for a cardioversion in approximately 1 month. He reports blood pressure fluctuations and has had several antihypertensive medication adjustments. He follows with cardiology. Most recent neuroimaging was an MRI brain W/WO contrast in July 2021 that was reported unremarkable. These images are not available for personal review but the full report is available on patient chart. He states that he is monitored for aneurysms approximately every [address] Migraines are occurring once weekly with a duration up to 3 days resulting in approximately 12 headache days per month. Current medications include Nurtec ODT 75mg as needed and sumatriptan 100mg as needed; however, patient had discontinued both of these with concern they were raising his blood pressure. Patient supplements with co-Q10 400 mg daily that he reports a migraine improvement on. Failed medications include topiramate, amitriptyline, propranolol, and Emgality. Emgality lost its efficacy. ROS: General: No fatigue. No recent weight loss/gain. No recent illness. No fevers. No recent falls. Neuro: Frequent headaches. No dizziness. No numbness/tingling. No weakness. No tremors. Psych: No insomnia or hypersomnia. No agitation. No depressive or anxiety symptoms. No memory difficulties. Cardio: No palpitations. No chest pain or discomfort. No edema. Respiratory: Nonsmoker. No cough. No shortness of breath. No wheezing. Musculoskeletal: No use of assistive devices. No neck pain. No back pain. He has had a left knee replacement. HEENT: No hearing loss. No blurry vision. No diplopia. No dysphagia. GI: No hematochezia. No NVD. No constipation. No abdominal pain or discomfort. : No hematuria. No frequency or urgency. No incontinence. No dysuria. Skin: No ecchymosis. No wounds, rashes, or lesions. PHYSICAL EXAM: Constitutional: Well-dev (more content not included)... Normal [facility] Cardiology Visit Reporton Cardiology Visit Report [facility] [address] [place], [place] [address]lor[address]. [address] [place] [address] OFFICE VISIT Date of Service: 01/28/25 MR#: [id number] Acct: [id number] Name: SRINATH PEPE Rep #: [id number] : 1960 Provider: SOHAM Freeman Age/Sex: 64/M [place] [facility] [place]: Signed HPI HPI History of Present Illness Details: Srinath Pepe is a 64-year-old male who presents to office today for follow-up for monitoring his cardiovascular health. He has a history of hypertension and underlying cirrhosis. He recently has noticed an increase in his blood pressure and has been treated with several medication adjustments. He is scheduled to undergo evaluation via ambulatory blood pressure monitor 01/30/2025. He has new onset atrial fibrillation. He was evaluated via coronary calcium score 08/12/2024 that demonstrated a total score of 285 with more specific details of left main 17.6, LAD 221, left circumflex 8.03 and RCA 38.7. Upon presentation today, patient reports higher blood pressure readings observed on home monitor. Blood pressure this morning prior to taking his medications is noted to be 153/106 with a pulse of 68 on his home monitor. He reports that he occasionally does observe lower readings as well depending on the time of the day. However, he has been observing higher readings on the majority of occasions. He was seen at his primary care approximately 2 weeks ago and was noted to have an irregular heart rate, EKG demonstrated atrial flutter. He was initiated on anticoagulation. He denies any symptoms such as chest pain, shortness of breath or palpitations related to his arrhythmia; however, reports that he notices irregular pulse when he checks his pulse. Further ROS below. Intake Vital Signs 11/17/24 06:30 01/28/25 07:25 Height 6 ft 4 in 6 ft 4 in Weight: 248 lb BMI 30.2 BP 135/86 H Blood Pressure Location Lt brachial Position Sitting Respiration 18 Pulse 70 Pulse Source Monitor Pulse Oximetry (%) 95 Oxygen Delivery Method room air Intake Visit Reasons: PER MACKEY Receiving Weigher Required: No Is patient in pain?: No Allergies fluoxetine (From Prozac) Allergy (Verified 01/28/25 07:55) Hives sertraline Allergy (Verified 01/28/25 07:55) Rash amlodipine Adverse Reaction (Severe, Verified 01/28/25 07:55) Swelling doxazosin Adverse Reaction (Verified 01/28/25 07:55) Weakness oxycodone Adverse Reaction (Verified 01/28/25 07:55) HICCUPS Medications ???Medication ???Instructions ???Recorded ???Confirmed ???Type multivitamin (Multiple Vitamins 1 ea PO DAILY 09/29/16 01/28/25 Hi story tablet) cholecalciferol (vitamin D3) 125 125 mcg PO QDAY 02/29/24 01/28/25 History mcg (5,000 unit) tablet tadalafil 20 mg tablet 20 mg PO DAILY PRN sexual activity 07/10/24 01/28/25 History carvedilol 25 mg tablet 25 mg PO BID #180 tabs 07/18/24 Rx coenzyme Q10 400 mg capsule 400 mg PO QDAY 07/18/24 01/28/25 H istory lactobacillus combination no.4 3 3,000 mmu cells PO QDAY 07/18/24 0 01/28/25 History billion cell capsule (Probiotic) ezetimibe 10 mg tablet (Zetia) 10 mg PO QDAY #90 tabs 10/16/24 Rx hydrochlorothiazide 25 mg tablet 25 mg PO QDAY #90 tabs 10/16/24 Rx valsartan 320 mg tablet 320 mg PO QDAY #90 tabs 10/16/24 0 01/28/25 Rx omeprazole 20 mg capsule,delayed 20 mg PO QDAY 90 days #90 caps 01/28/25 Rx release apixaban 5 mg tablet (Eliquis) 5 mg PO BID ordered by Dr. Mackey 01/20/25 01/28/25 History hydralazine 50 mg tablet 50 mg PO BID #60 tabs 01/22/25 Rx Ejection fraction %: 60 Have you fallen in the past year?: No PFSH Medical History History of hiatal hernia History of echocardiogram [...] Brother Cancer Liver Other Alcoholism Social History (R (more content not included)... Normal [facility] .Auto Diffon 01-15-2025 Basophil, Absolute 0.0 10 3/mcL Normal 0.0-0.3 [facility] Comment on above: Performed By: #### A SKYLA, CBC, GFR, VIDH, ADIFF, TSHR, CMP, LIPID, PSA #### [address] [address] #### B12 #### [address] [address] Basophils/100 WBC (Bld) 0.5 % Normal 0.0-2.5 [facility] Comment on above: Performed By: #### A SKYLA, CBC, GFR, VIDH, ADIFF, TSHR, CMP, LIPID, PSA #### [place] [address] #### B12 #### [address] [address] Eosinophil, Absolute 0.1 10 3/mcL Normal 0.0-0.7 [facility] Comment on above: Performed By: #### A SKYLA, CBC, GFR, VIDH, ADIFF, TSHR, CMP, LIPID, PSA #### [place] [address] #### B12 #### [address] [address] Eosinophils/100 WBC (Bld) 1.3 % Normal 0.0-6.0 [facility] Comment on above: Performed By: #### A SKYLA, CBC, GFR, VIDH, ADIFF, TSHR, CMP, LIPID, PSA #### [place] [address] #### B12 #### [address] [address] Lymphocyte, Absolute 1.2 10 3/mcL Normal 0.9-4.3 [facility] Comment on above: Performed By: #### A SKYLA, CBC, GFR, VIDH, ADIFF, TSHR, CMP, LIPID, PSA #### [place] [address] #### B12 #### [address] [address] Lymphocytes/100 WBC (Bld) 24.9 % Normal 20.0-40.0 [facility] Comment on above: Performed By: #### A SKYLA, CBC, GFR, VIDH, ADIFF, TSHR, CMP, LIPID, PSA #### [place] [address] #### B12 #### [address] [address] Monocyte, Absolute 0.5 10 3/mcL Normal 0.1-1.4 [facility] Comment on above: Performed By: #### A SKYLA, CBC, GFR, VIDH, ADIFF, TSHR, CMP, LIPID, PSA #### [place] [address] #### B12 #### [address] [address] Monocytes/100 WBC (Bld) 11.2 % Normal 2.0-13.0 [facility] Comment on above: Performed By: #### A SKYLA, CBC, GFR, VIDH, ADIFF, TSHR, CMP, LIPID, PSA #### [place] [address] #### B12 #### [address] [address] Neutrophils/100 WBC (Bld) 62.1 % Normal 50.0-75.0 [facility] Comment on above: Performed By: #### A SKYLA, CBC, GFR, VIDH, ADIFF, TSHR, CMP, LIPID, PSA #### [place] [address] #### B12 #### [address] [address] .GFRon 01-15-2025 Estimated Glomerular Filtration Rate 79 ml/min/1.73sqm Normal [facility] Comment on above: Result Comment: Stages of Chronic Kidney Disease [...] calculate the eGFR results. Performed By: #### A SKYLA, CBC, GFR, VIDH, ADIFF, TSHR, CMP, LIPID, PSA #### [place] [address] #### B12 #### [place] [address] .NEUABSon 01-15-2025 Neutrophil, Absolute 3.0 10 3/mcL Normal 2.3-8.1 [facility] Comment on above: Performed By: #### A SKYLA, CBC, GFR, VIDH, ADIFF, TSHR, CMP, LIPID, PSA #### [place] [address] #### B12 #### [place] [address] B12on 01-15-2025 Cobalamin (Vitamin B12) [Mass/Vol] 936 pg/mL High 211-911 [facility] Comment on above: Performed By: #### A SKYLA, CBC, GFR, VIDH, ADIFF, TSHR, CMP, LIPID, PSA #### [place] [id number] #### B12 #### [place] [address] CBCon 01-15-2025 Erythrocyte distribution width (RBC) [Ratio] 14.6 % Normal 11.5-15.5 [facility] Comment on above: Performed By: #### A SKYLA, CBC, GFR, VIDH, ADIFF, TSHR, CMP, LIPID, PSA #### [place] [address] #### B12 #### [place] [address] Hematocrit (Bld) [Volume fraction] 47.8 % Normal 40.0-52.0 [facility] Comment on above: Performed By: #### A SKYLA, CBC, GFR, VIDH, ADIFF, TSHR, CMP, LIPID, PSA #### [place] [address] #### B12 #### [place] [address] Hgb 16.2 G/dL Normal 13.0-17.5 [facility] Comment on above: Performed By: #### A SKYLA, CBC, GFR, VIDH, ADIFF, TSHR, CMP, LIPID, PSA #### [place] [address] #### B12 #### [place] [address] MCH (RBC) [Entitic mass] 29.1 pg Normal 27.0-33.0 [facility] Comment on above: Performed By: #### A SKYLA, CBC, GFR, VIDH, ADIFF, TSHR, CMP, LIPID, PSA #### [place] [address] #### B12 #### [place] [address] MCHC 33.8 G/dL Normal 32.0-36.0 [facility] Comment on above: Performed By: #### A SKYLA, CBC, GFR, VIDH, ADIFF, TSHR, CMP, LIPID, PSA #### [place] [address] #### B12 #### [place] [address] MCV (RBC) [Entitic vol] 86.1 fL Normal 81.0-100.0 [facility] Comment on above: Performed By: #### A SKYLA, CBC, GFR, VIDH, ADIFF, TSHR, CMP, LIPID, PSA #### [place] [address] #### B12 #### [place] [address] Platelet 112 10 3/mcL Low 150-450 [facility] Comment on above: Performed By: #### A SKYLA, CBC, GFR, VIDH, ADIFF, TSHR, CMP, LIPID, PSA #### [place] [address] #### B12 #### [place] [address] Platelet mean volume (Bld) [Entitic vol] 9.1 fL Normal 6.4-10.5 [facility] Comment on above: Performed By: #### A SKYLA, CBC, GFR, VIDH, ADIFF, TSHR, CMP, LIPID, PSA #### [place] [address] #### B12 #### [place] [address] RBC 5.55 10 6/mcL Normal 4.50-6.00 [facility] Comment on above: Performed By: #### A SKYLA, CBC, GFR, VIDH, ADIFF, TSHR, CMP, LIPID, PSA #### [place] [address] #### B12 #### [place] [address] WBC 4.9 10 3/mcL Normal 4.5-10.8 [facility] Comment on above: Performed By: #### A SKYLA, CBC, GFR, VIDH, ADIFF, TSHR, CMP, LIPID, PSA #### [place] [address] #### B12 #### [place] [address] CMPon 01-15-2025 Albumin Level 4.0 G/dL Normal 3.4-4.8 [facility] Comment on above: Performed By: #### A SKYLA, CBC, GFR, VIDH, ADIFF, TSHR, CMP, LIPID, PSA #### [place] [address] #### B12 #### [address] [address] Albumin/Globulin [Mass ratio] 1.2 {ratio} Normal 1.1-2.5 [facility] Comment on above: Performed By: #### A SKYLA, CBC, GFR, VIDH, ADIFF, TSHR, CMP, LIPID, PSA #### [place] [address] #### B12 #### [address] [address] ALP [Catalytic activity/Vol] 70 U/L Normal 40-135 [facility] Comment on above: Performed By: #### A SKYLA, CBC, GFR, VIDH, ADIFF, TSHR, CMP, LIPID, PSA #### [place] [address] #### B12 #### [place] [address] ALT [Catalytic activity/Vol] 36 U/L Normal 16-63 [facility] Comment on above: Performed By: #### A SKYLA, CBC, GFR, VIDH, ADIFF, TSHR, CMP, LIPID, PSA #### [place] [address] #### B12 #### [place] [id number] AST [Catalytic activity/Vol] 28 U/L Normal 10-40 [facility] Comment on above: Performed By: #### A SKYLA, CBC, GFR, VIDH, ADIFF, TSHR, CMP, LIPID, PSA #### [place] [address] #### B12 #### [address] [address] Bili Total 1.0 mg/dL Normal 0.2-1.0 [facility] Comment on above: Result Comment: Use of this assay is not recommended for patients undergoing treatment with eltrombopag due to the potential for falsely elevated results. Performed By: #### A SKYLA, CBC, GFR, VIDH, ADIFF, TSHR, CMP, LIPID, PSA #### [address] [address] #### B12 #### [address] [address] BUN/Creatinine Ratio 18 ratio Normal 7-27 [facility] Comment on above: Performed By: #### A SKYLA, CBC, GFR, VIDH, ADIFF, TSHR, CMP, LIPID, PSA #### [place] [address] #### B12 #### [address] [address] Calcium [Mass/Vol] 9.7 mg/dL Normal 8.4-10.2 [facility] Comment on above: Performed By: #### A SKYLA, CBC, GFR, VIDH, ADIFF, TSHR, CMP, LIPID, PSA #### [place] [address] #### B12 #### [address] [address] Chloride [Moles/Vol] 105 mmol/L Normal 98-107 [facility] Comment on above: Performed By: #### A SKYLA, CBC, GFR, VIDH, ADIFF, TSHR, CMP, LIPID, PSA #### [place] [address] #### B12 #### [address] [address] CO2 [Moles/Vol] 28 mmol/L Normal 23-31 [facility] Comment on above: Performed By: #### A SKYLA, CBC, GFR, VIDH, ADIFF, TSHR, CMP, LIPID, PSA #### [place] [address] #### B12 #### [address] [address] Creatinine [Mass/Vol] 1.05 mg/dL Normal 0.67-1.17 [facility] Comment on above: Performed By: #### A SKYLA, CBC, GFR, VIDH, ADIFF, TSHR, CMP, LIPID, PSA #### [place] [address] #### B12 #### [address] [address] Electrolyte Balance 8.0 mEq/L Normal 4.0-15.0 [facility] Comment on above: Performed By: #### A SKYLA, CBC, GFR, VIDH, ADIFF, TSHR, CMP, LIPID, PSA #### [place] [address] #### B12 #### [address] [address] Globulin 3.2 G/dL Normal 2.7-4.4 [facility] Comment on above: Performed By: #### A SKYLA, CBC, GFR, VIDH, ADIFF, TSHR, CMP, LIPID, PSA #### [place] [address] #### B12 #### [address] [address] Glucose [Mass/Vol] 96 mg/dL Normal 80-115 [facility] Comment on above: Performed By: #### A SKYLA, CBC, GFR, VIDH, ADIFF, TSHR, CMP, LIPID, PSA #### [place] [address] #### B12 #### [address] [address] Potassium [Moles/Vol] 3.5 mmol/L Normal 3.5-5.1 [facility] Comment on above: Performed By: #### A SKYLA, CBC, GFR, VIDH, ADIFF, TSHR, CMP, LIPID, PSA #### [place] [address] #### B12 #### [address] [address] Sodium [Moles/Vol] 141 mmol/L Normal 136-145 [facility] Comment on above: Performed By: #### A SKYLA, CBC, GFR, VIDH, ADIFF, TSHR, CMP, LIPID, PSA #### [address] [address] #### B12 #### [place] [address] Total Protein 7.2 G/dL Normal 6.4-8.2 [facility] Comment on above: Performed By: #### A SKYLA, CBC, GFR, VIDH, ADIFF, TSHR, CMP, LIPID, PSA #### [address] [address] #### B12 #### [place] [address] Urea nitrogen [Mass/Vol] 19 mg/dL High - [facility] Comment on above: Performed By: #### A SKYLA, CBC, GFR, VIDH, ADIFF, TSHR, CMP, LIPID, PSA #### [place] [address] #### B12 #### [place] [address] LABORATORYOrdered By: SYSTEM SYSTEM on 01-15-2025 25-hydroxyvitamin D3 [Mass/Vol] 66.7 ng/mL Invalid Interpretation Code AO ADM SS Comment on above: Interpretive Data: I nterpretive Values Based on Total 25(OH) Vitamin D: Deficient <20 ng/mL Insufficient 20 - <30 ng/mL Sufficient 30-100 ng/mL Albumin BCP dye [Mass/Vol] 4.0 G/dL Normal 3.4 - 4.8 G/dL AO ADM SS Albumin/Globulin [Mass ratio] 1.2 {ratio} Normal 1.1 - 2.5 ratio AO ADM SS ALP [Catalytic activity/Vol] 70 U/L Normal 40 - 135 U/L AO ADM SS ALT With P-5'-P [Catalytic activity/Vol] 36 U/L Normal 16 - 63 U/L AO ADM SS AST With P-5'-P [Catalytic activity/Vol] 28 U/L Normal 10 - 40 U/L AO ADM SS Basophils (Bld) [#/Vol] 0.0 103/mcL Normal 0.0 - 0.3 10^3/mcL AO Workflow SS Basophils/100 WBC (Bld) 0.5 % Normal 0.0 - 2.5 % AO Workflow SS Bilirubin [Mass/Vol] 1.0 mg/dL Normal 0.2 - 1 .0 mg/dL AO ADM SS Comment on above: Interpretive Data: U se of this assay is not recommended for patients undergoing treatment with eltrombopag due to the potential for falsely elevated results. Calcium [Mass/Vol] 9.7 mg/dL Normal 8.4 - 10. 2 mg/dL AO ADM SS Chloride [Moles/Vol] 105 mmol/L Normal 98 - 10 7 mmol/L AO ADM SS CO2 [Moles/Vol] 28 mmol/L Normal 23 - 31 mmol/L AO ADM SS Cobalamin (Vitamin B12) [Mass/Vol] 936 pg/mL High 211 - 911 pg/mL AH ADM SS Creatinine [Mass/Vol] 1.05 mg/dL Normal 0.67 - 1.17 mg/dL AO ADM SS Electrolyte Balance 8.0 mEq/L Normal 4.0 - 15 .0 mEq/L AO ADM SS Eosinophil, Absolute 0.1 103/mcL Normal 0.0 - 0 .7 10^3/mcL AO Workflow SS Eosinophils/100 WBC (Bld) 1.3 % Normal 0.0 - 6.0 % AO Workflow SS Erythrocyte distribution width (RBC) [Ratio] 14.6 % Normal 11.5 - 15.5 % AO Workflow SS Estimated Glomerular Filtration Rate 79 ml/min/1.73sqm Invalid Interpretation Code AO Chemistry S Comment on above: Interpretive Data: Stages of Chronic Kidney Disease (CKD) Stage [...] race factor to calculate the eGFR results. Globulin 3.2 G/dL Normal 2.7 - 4.4 G/dL AO ADM SS Glucose [Mass/Vol] 96 mg/dL Normal 80 - 115 mg/dL AO ADM SS Hematocrit (Bld) [Volume fraction] 47.8 % Normal 40.0 - 52.0 % AO Workflow SS Hemoglobin (Bld) [Mass/Vol] 16.2 G/dL Normal 13.0 - 17.5 G/dL AO Workflow SS Lymphocytes (Bld) [#/Vol] 1.2 103/mcL Normal 0.9 - 4.3 10^3/mcL AO Workflow SS Lymphocytes/100 WBC (Bld) 24.9 % Normal 20.0 - 40.0 % AO Workflow SS MCH (RBC) [Entitic mass] 29.1 pg Normal 27.0 - 33.0 pg AO Workflow SS MCHC 33.8 G/dL Normal 32.0 - 36.0 G/dL AO Workflow SS MCV (RBC) [Entitic vol] 86.1 fL Normal 81.0 - 100.0 fL AO Workflow SS Monocytes (Bld) [#/Vol] 0.5 103/mcL Normal 0.1 - 1.4 10^3/mcL AO Workflow SS Monocytes/100 WBC (Bld) 11.2 % Normal 2.0 - 13.0 % AO Workflow SS Neutrophils (Bld) [#/Vol] 3.0 103/mcL Normal 2.3 - 8.1 10^3/mcL AO Workflow SS Neutrophils/100 WBC (Bld) 62.1 % Normal 50.0 - 75.0 % AO Workflow SS Platelet mean volume (Bld) [Entitic vol] 9.1 fL Normal 6.4 - 10.5 fL AO Workflow SS Platelets (Bld) [#/Vol] 112 103/mcL Low 150 - 450 10^3/mcL AO Workflow SS Potassium [Moles/Vol] 3.5 mmol/L Normal 3.5 - 5.1 mmol/L AO ADM SS Prostate specific Ag [Mass/Vol] ng/mL Normal 0.00 - 4.00 ng/mL AO ADM SS Protein [Mass/Vol] 7.2 G/dL Normal 6.4 - 8.2 G/dL AO ADM SS RBC (Bld) [#/Vol] 5.55 106/mcL Normal 4.50 - 6.00 10^6/mcL AO Workflow SS Sodium [Moles/Vol] 141 mmol/L Normal 136 - 145 mmol/L AO ADM SS TSH Qn 1.85 m[IU]/L Normal 0.36 - 3.74 mcIU/mL AO ADM SS Urea nitrogen [Mass/Vol] 19 mg/dL High 7 - 18 mg/dL AO ADM SS Urea nitrogen/Creatinine [Mass ratio] 18 ratio Normal 7 - 27 ratio AO ADM SS WBC (Bld) [#/Vol] 4.9 103/mcL Normal 4.5 - 10.8 10^3/mcL AO Workflow SS LABORATORYOrdered By: Yola Camp on 01-15-2025 Cholesterol [Mass/Vol] 187 mg/dL Normal 0 - 2 00 mg/dL AO ADM SS Comment on above: Interpretive Data: C holesterol Reference Interval: Less than 200 Desirable 200-239 Borderline high risk 240 and above High risk Cholesterol in HDL [Mass/Vol] 43 mg/dL Normal 40 - 60 mg/dL AO ADM SS Cholesterol in LDL [Mass/Vol] 128 mg/dL Normal 0 - 130 mg/dL AO ADM SS Triglyceride [Mass/Vol] 79 mg/dL Normal 0 - 150 mg/dL AO ADM SS Comment on above: Interpretive Data: T riglyceride Reference Interval: Less than 150 Normal 150-199 Borderline high risk 200-499 High risk 500 or higher Very high risk LIPIDon 01-15-2025 Cholesterol [Mass/Vol] 187 mg/dL Normal 0-200 [facility] Comment on above: Result Comment: Chol esterol Reference Interval: Less than 200 Desirable 200-239 Borderline high risk 240 and above High risk Performed By: #### A SKYLA, CBC, GFR, VIDH, ADIFF, TSHR, CMP, LIPID, PSA #### [address] [address] #### B12 #### [address] [address] Cholesterol in HDL [Mass/Vol] 43 mg/dL Normal 40-60 [facility] Comment on above: Performed By: #### A SKYLA, CBC, GFR, VIDH, ADIFF, TSHR, CMP, LIPID, PSA #### [address] [address] #### B12 #### [address] [address] Cholesterol in LDL [Mass/Vol] 128 mg/dL Normal 0-130 [facility] Comment on above: Performed By: #### A SKYLA, CBC, GFR, VIDH, ADIFF, TSHR, CMP, LIPID, PSA #### [address] [address] #### B12 #### [place] [address] Triglyceride [Mass/Vol] 79 mg/dL Normal 0-150 [facility] Comment on above: Result Comment: Trig lyceride Reference Interval: Less than 150 Normal 150-199 Borderline high risk 200-499 High risk 500 or higher Very high risk Performed By: #### A SKYLA, CBC, GFR, VIDH, ADIFF, TSHR, CMP, LIPID, PSA #### [address] [address] #### B12 #### [place] [address] PSAon 01-15-2025 Prostate Specific Antigen <0.05 Normal 0.00-4.00 [facility] Comment on above: Performed By: #### A SKYLA, CBC, GFR, VIDH, ADIFF, TSHR, CMP, LIPID, PSA #### [place] [address] #### B12 #### [place] [address] TSHRon 01-15-2025 TSH Qn 1.85 m[IU]/L Normal 0.36-3.74 [facility] Comment on above: Performed By: #### A SKYLA, CBC, GFR, VIDH, ADIFF, TSHR, CMP, LIPID, PSA #### [place] [address] #### B12 #### [place] [address] VIDHon 01-15-2025 Vit. D 25-Hydroxy 66.7 ng/mL Normal [facility] Comment on above: Result Comment: Inte rpretive Values Based on Total 25(OH) Vitamin D: Deficient <20 ng/mL Insufficient 20 - <30 ng/mL Sufficient 30-100 ng/mL Performed By: #### A SKYLA, CBC, GFR, VIDH, ADIFF, TSHR, CMP, LIPID, PSA #### [address] [address] #### B12 #### [address] [address] LABORATORYOrdered By: Nitza Amador on 12-31-2024 Albumin DL <= 20 mg/L (U) [Mass/Vol] 25.6 mg/L Invalid Interpretation Code AO ADM SS Albumin/Creatinine DL <= 20 mg/L (U) [Mass ratio] 8 mg/G Normal 0 - 30 mg/G AO Chemistry S Creatinine (U) [Mass/Vol] 306.3 mg/dL Invalid Interpretation Code AO ADM SS MALBRon 12-31-2024 U Creatinine 306.3 mg/dL Normal [facility] Comment on above: Performed By: #### A SKYLA, CBC, GFR, VIDH, ADIFF, TSHR, CMP, LIPID, PSA #### [place] [address] #### B12 #### [address] [address] U Microalb 25.6 mg/L Normal [facility] Comment on above: Performed By: #### A SKYLA, CBC, GFR, VIDH, ADIFF, TSHR, CMP, LIPID, PSA #### [address] [address] #### B12 #### [address] [address] U Ratio Alb/Cre 8 mg/G Normal 0-30 [facility] Comment on above: Performed By: #### A SKYLA, CBC, GFR, VIDH, ADIFF, TSHR, CMP, LIPID, PSA #### [address] [address] #### B12 #### [address] [address] EGD Reporton 11-17-2024 EGD Report [facility] Medical Records Department [address] [place] [address] EGD Report MR#: [id number] Acct: [id number] Name: SRINATH PEPE Rep #: [id number] : 1960 63 From: Bismark Montoya DO PCP: Dr. Kevon Mackey DO Status:REG [facility] Patient Name: Srinath Pepe Procedure Date: 11/17/2024 7:07 AM Date of : 1960 Age: 63 Procedure: Upper GI endoscopy Indications: Cirrhosis with suspected esophageal varices Providers: Bismark Montoya DO Referring MD: Kevon Mackey Do Medicines: Monitored Anesthesia Care Patient Profile: This is a 63 year old male. Refer to note in patient chart for documentation of history and physical. Patient has symptoms. His most recent EGD for biopsy and EGD for treatment of bleeding. Complications: No immediate complications. Procedure: Pre-Anesthesia Assessment: - Prior to the procedure, a History and Physical was performed, and patient medications and allergies were reviewed. The patient is competent. The risks and benefits of the procedure and the sedation options and risks were discussed with the patient. All questions were answered and informed consent was obtained. Patient identification and proposed procedure were verified in the pre-procedure area. Mental Status Examination: alert and oriented. Airway Examination: normal oropharyngeal airway and neck mobility. Respiratory Examination: clear to auscultation. CV Examination: normal. Prophylactic Antibiotics: The patient does not require prophylactic antibiotics. Prior Anticoagulants: The patient has taken no anticoagulant or antiplatelet agents except for NSAID medication. ASA Grade Assessment: II - A patient with mild systemic disease. After reviewing the risks and [...] and oxygen saturations were monitored continuously. The gastroscope was introduced through the mouth, and advanced to the third part of the duodenum. Small bowel enteroscopy was deemed necessary. The upper GI endoscopy was accomplished without difficulty. The patient tolerated the procedure well. Scope In: 7:18:05 AM Scope Out: 7:21:33 AM Total Procedure Duration Time 0 hours 3 minutes 28 seconds Findings: The Z-line was irregular and was found 40 cm from the incisors. Biopsies were taken with a cold forceps for histology. Verification of patient identification for the specimen was done. Estimated blood loss was minimal. Patchy mildly erythematous mucosa without bleeding was found in the gastric body. Biopsies were taken with a cold forceps for histology. Biopsies were taken with a cold forceps for histology. Biopsies were taken with a cold forceps for Helicobacter pylori testing. Verification of patient identification for the specimen was done. Estimated blood loss was minimal. Patchy mildly erythematous mucosa without active bleeding and with no stigmata of bleeding was found in the duodenal bulb. Biopsies were taken with a cold forceps for histology. Verification of patient identification for the specimen was done. Estimated blood loss was minimal. Impression: - Z-line irregular, 40 cm from the incisors. Biopsied. - Erythematous mucosa in the gastric body. Biopsied. - Erythematous duodenopathy. Biopsied. Recommendation: - Discharge patient to home. - Resume previous diet. - Continue present medications. - Await pathology results. Procedure Code(s): --- Professional --- 86467, Small intestinal endoscopy, enteroscopy beyond second portion of duodenum, not including ileum; with biopsy, single or multiple CPT copyright 2021 [employer]. All rights reserved. The codes documented in this report are preliminary and upon supervisor machine workers review may be revised to meet current compliance requirements. Bismark Montoya DO 11/17/2024 7:30:11 AM This report has been signed electronically. Number of Addenda: 0 Note Initiated On: 11/17/2024 7:07 AM 11/17/24 0730 Date Bismark Fletcher Signature: Date (if indicated) CC: Dr. Kevon Mackey DO; Bismark Montoya DO Date Dictated: 11/17/24706 Date Prater (more content not included)... Normal [facility] Immunohistochemical Stainson 11-17-2024 Immunohistochemical Stains Patient Age/Sex Location Account Attending Physician SRINATH PEPE 63/M EN [id number] Bismark Montoya DO Specimen: [id number] Received: 11/17/24 Status: PAPA Bautista Num: [id number] Spec Type: EGD BIOPSY Subm Dr: Bismark Montoya DO HEADER OPERATION: EGD PRE-OP DIAGNOSIS: Varices of esophagus determined by endoscopy TISSUE SUBMITTED: A- Gastric body, B- Duodenum biopsy, C- Distal esophagus biopsy MICROSCOPIC DIAGNOSIS A. Gastric body, biopsy: Oxyntic mucosa with mild chronic inflammation. IHC negative for H.pylori organisms. B. Duodenum, biopsy: Gastric mucin cell metaplasia with Julienne gland hyperplasia and mild acute inflammation, suggestive of peptic injury. Negative for increased intraepithelial lymphocytes. C. Distal esophagus, biopsy: Squamous mucosa with reactive changes. Columnar mucosa negative for goblet cell metaplasia. Negative for dysplasia. MICROSCOPIC DESCRIPTION Slides are reviewed. All matched controls reacted appropriately. These tests were developed and their performance characteristics determined by [facility]. They may not have been cleared or approved by the U.S. Food and Drug Administration. The FDA has determined that such clearance or approval is not necessary. The above immunohistochemical/dualISH markers are viewed by the Pathologist. GROSS DESCRIPTION A. Received in fixative is one container labeled with the patient's name and designated Gastric body. The specimen consists of two irregular fragments of light mclain soft tissue that in aggregate each measuring 0.7 cm. The specimen is totally submitted in one cassette. B. Received in fixative is one container labeled with the patient's name and designated Duodenum biopsy. The specimen consists of two irregular fragments of light mclain soft tissue that in aggregate measure 0.3 and 0.4 cm. The specimen is totally submitted in one cassette. C. Received in fixative is one container labeled with the patient's name and designated Distal esophagus biopsy. The specimen consists of one irregular fragment of light mclain soft tissue that measures 0.3 cm. The specimen is totally submitted in one cassette. [facility]:[id number] Patient Age/Sex Location Account Attending Physician SRINATH PEPE/M EN [id number] Bismark Montoya DO PATRICK/ 11/17/2024 Patient Age/Sex Location Account Attending Physician SRINATH PEPE/Wally EN [id number] Bismark Montoya DO Signed (signature on file) Dr. Katrina Ji MD 11/21/24 1008 [facility] Comment on above: Performed By: #### P [facility] #### [facility] [address] [place], [place], [address] MR/POSTOP.Hero 11-17-2024 MR/POSTOP.[facility] Medical Records Department [address] [place] [address] Anesthesia Postop Eval I 11/17/24 0733 MR#: [id number] Acct: [id number] Name: SRINATH PEPE SELIN Rep #: [id number] : 1960 63 From: Tom Lara PCP: Dr. Kevon Mackey, DO Status:REG SDC Y Race: C Location: [place] [address] Anesthesia: Postop Eval I Current Vital Signs Temperature: 97.8 F Pulse Rate: 61 Blood Pressure: 108/79 Respiratory Rate: 14 Pulse Ox: 99 Oxygen Delivery Method: Room Air Assessment Airway patent: Yes Spontaneous unlabored respirations: Yes Mental status: Awake and Calm nausea: No Vomiting: No Anesthesia Complication: No Fluid Hydration Crystalloid volume administer (ml): 300 Total IV fluid infused: 300 Progress Note Anesthesia document: Postop Eval 1 completed: Yes 11/17/24 0734 Date Tom Barlow Signature: Date CC: Signed Normal [facility] [id number] 11-17-2024 MR/POSTOPAN2 [facility] Medical Records Department [address] [place] [address] Anesthesia Postop Eval II 11/17/24 1227 MR#: [id number] Acct: [id number] Name: SRINATH PEPE Rep #: [id number] : 1960 63 From: Roby Maki MD PCP: Dr. Kevon Mackey, DO Status:DEP [facility] Y Race: C Location: EN Anesthesia Postop Eval I Sum Postop Eval Completion status Anesthesia document: Postop Eval 1 completed: Yes Anesthesia Postop Eval I Summary Anesthesia Postop Eval I Summary: Anesthesia Postop Eval I: Assessment Summary Airway patent Yes 11/17/24 07:34 [email or web address] Spontaneous unlabored Yes 11/17/24 07:34 [email or web address] respirations Mental status Awake,Calm 11/17/24 07:34 [email or web address] nausea No 11/17/24 07:34 [email or web address] Vomiting No 11/17/24 07:34 [email or web address] Anesthesia Postop Eval I: Fluid Summary Crystalloid volume administer 300 11/17/24 07:34 [email or web address] (ml) Colloids volume administered ( ml) Blood Product volume administered (ml) Total IV fluid infused 300 11/17/24 07:34 [email or web address] Anesthesia Postop Eval I: Summary Notes Anesthesia Complication No 11/17/24 07:34 [email or web address] Anesthesia Complication Comment: Post-operative progress note Anesthesia: Postop Eval II Evaluation Mental status: Awake and Calm Pain Level: 0 nausea: No Vomiting: No Complications Anesthesia Complication: No 11/17/24 1227 Date Roby Maki MD Cosigner Signature: Date CC: Signed [facility] MR/Mykel 11-13-2024 /[facility] Medical Records Department [address] [place] [address] PAT - Anesthesia 11/13/24 1504 MR#: [id number] Acct: [id number] Name: SRINATH PEPE Rep #: [id number] : 1960 63 From: Rudi Nazario MD PCP: Dr. 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 Hx Hospitalization No 11/13/24 14:50 Any Problems [...] take am of surgery PONV PONV - internet marketing consultant: PONV - internet marketing consultant Female Yes 11/13/24 14:50 HX of Motion [...] 10/16/24 12:11 Respiratory Assessment Respiratory Assessment - internet marketing consultant: Respiratory Tract Infection Hx - internet marketing consultant Hx Respiratory Tract Infection No 11/13/24 14:50 STOP Sleep Apnea STOP Sleep Apnea - internet marketing consultant: STOP Sleep Apnea - internet marketing consultant Hx Hypertension Yes: CONTROLLED WITH MEDS 11/13/24 [...] Tobacco Use History Tobacco Use History - internet marketing consultant: Tobacco Use History - internet marketing consultant Tobacco Use Smoking Status Never smoker 11/13/24 14:50 Hx Tobacco Use No 11/13/24 14:50 Years Smoking Packs Smoked per Day Smoking Cessation Date was within the last 15 years Hx Smoking Cessation Date Hx Smoking Cessation Counseling Hematologic Medial History Hematologic Hx - internet marketing consultant: Hematologic Medical Hx - taper and floater Hx of Blood Transfusion No 11/13/24 14:50 [...] confused, unrespo /Reproduction History /Reproductive History - internet marketing consultant: /Reproductive Hx- internet marketing consultant Hx Now No 11/13/24 14:50 Gestational Age [...] Unknown History (more content not included)... Normal [facility] Cardiology Visit Reporton Cardiology Visit Report [facility] [address] [place] [address] OFFICE VISIT Date of Service: 10/16/24 MR#: [id number] Acct: [id number] Name: SRINATH PEPE Rep #: [id number] : 1960 Provider: Dr. Jonathan Saleem MD Age/Sex: 63/M Location: [facility] [place] Status: Signed HPI HPI History of Present [...] air Intake Visit Reasons: 3 M FU Receiving Weigher Required: No Accompanied by: Self Is patient [...] Endo Endo: (more content not included)... Normal [facility] Anion gap in Serum or Plasma Ordered By: Adalgisa Gomez on 10-03-2024 Anion gap [Moles/Vol] 11 mmol/L 10-16 [facility] BUN/creatinine ratioOrdered By: Adalgisa Gomez on 10-03-2024 Urea nitrogen/Creatinine [Mass ratio] 25.5 mg/mg High 03-23 [facility] Basic Metabolic Profile (BMP )on 10-03-2024 BUN/CRE 25.5 RATIO [facility] Comment on above: Performed By: #### L 500.2500 ####[facility] [address] [place], [address] Calcium [Mass/Vol] 9.3 mg/dL Normal 7.6-11.0 [facility] Comment on above: Performed By: #### L 500.2500 ####[facility] [address] [place], [address] Chloride [Moles/Vol] 104 mmol/L Normal 98-108 [facility] Comment on above: Performed By: #### L 500.2500 ####[facility] [address] [place], [address] CO2 [Moles/Vol] 23.3 mmol/L Normal 21.0-32.0 [facility] Comment on above: Performed By: #### L 500.2500 ####[facility] [address] [place], [address] Creatinine [Mass/Vol] 0.99 mg/dL Normal 0.70-1.20 [facility] Comment on above: Performed By: #### L 500.2500 ####[facility] [address] [place], [address] GAP 11 Normal 5-15 [facility] Comment on above: Performed By: #### L 500.2500 ####[facility] [address] [place], [address] GFR/1.73 sq M.predicted among non-blacks MDRD (S/P/Bld) [Vol rate/Area] 85 mL/min/{1.73_m2} Normal >60 [facility] Comment on above: Result Comment: mL/m in/1.73m2 CKD-EPI Creatinine Equation (2020) Performed By: #### L 500.2500 ####[facility] [address] [place], [address] Glucose [Mass/Vol] 126 mg/dL High 70-99 [facility] Comment on above: Performed By: #### L 500.2500 ####[facility] [address] [place], [address] Potassium [Moles/Vol] 3.6 mmol/L Normal 3.3-5.1 [facility] Comment on above: Performed By: #### L 500.2500 ####[facility] [address] [place], [place], [id number] Sodium [Moles/Vol] 139 mmol/L Normal 133-145 [facility] Comment on above: Performed By: #### L 500.2500 ####[facility] [address] [place], [place], [id number] Urea nitrogen [Mass/Vol] 25 mg/dL High 4-19 [facility] Comment on above: Performed By: #### L 500.2500 ####[facility] [address] [place], [place], [id number] Bilirubin directOrdered By: Magdalene Driver on 10-03-2024 Bilirubin.direct [Mass/Vol] 0.29 mg/dL 0.00-0.30 [facility] Bilirubin, totalOrdered By: Magdalene Driver on 10-03-2024 Bilirubin [Mass/Vol] 0.60 mg/dL 0.00-1.30 [facility] Calculated very low density lipoprotein (VLDL) cholesterol measurementOrdered By: Magdalene Driver on 10-03-2024 Calculated very low density lipoprotein (VLDL) cholesterol measurement 16 mg/dL 5-40 [facility] Carbon dioxide, total [Moles /volume] in Central venous bloodOrdered By: Adalgisa Gomez on 10-03-2024 CO2 [Moles/Vol] 23.3 mmol/L 21.0-32.0 [facility] Chloride assayOrdered By: Jarett Gomez on 10-03-2024 Chloride [Moles/Vol] 104 mmol/L 98-108 [facility] Glomerular filtration rate ( GFR) estimation/1.73 sq m using serum, plasma, or whole bOrdered By: Adalgisa Gomez on 10-03-2024 GFR/1.73 sq M.predicted among non-blacks MDRD (S/P/Bld) [Vol rate/Area] 85 mL/min/{1.73_m2} >60 [facility] Comment on above: mL/min/1.73m2 CKD-EP I Creatinine Equation (2020) LDL calc ser/plasOrdered By: Magdalene Driver on 10-03-2024 Cholesterol in LDL [Mass/Vol] 98 mg/dL [facility] Comment on above: Xczbpvvmtz=028-753 m g/dL & Higher Vhvw=485 mg/dL or greater Laboratory - Chemistry and C hemistry - challengeOrdered By: Magdalene Driver on 10-03-2024 AST [Catalytic activity/Vol] 30 U/L <38 [facility] Lipid Profileon 10-03-2024 CHOL:HDL 3.77 Normal [facility] Comment on above: Performed By: #### L 500.3400, L500.4100 #### [facility] Laboratory [address] [place], [address] Cholesterol [Mass/Vol] 156 mg/dL Normal <=200 [facility] Comment on above: Result Comment: Chol esterol level, Desirable <200 mg/dL Borderline high cholesterol 200-239 mg/dL High cholesterol >=240 mg/dL Recommendations of the NCEP Adult Treatment Panel for the following risk-cutoff thresholds for the [place] population. Performed By: #### L 500.3400, L500.4100 #### [facility] Laboratory [address] [place], [address] Cholesterol in HDL [Mass/Vol] 41 mg/dL Normal [facility] Comment on above: Result Comment: Katt onal Cholesterol Education Program (NCEP) guidelines: <40 mg/dL: Low HDL-cholesterol (major risk factor for CHD) >= 60 mg/dL: High HDL-cholesterol (negative risk factor for CHD) HDL-cholesterol is affected by a number of factors, e.g. smoking, exercise, hormones, sex and age. Performed By: #### L 500.3400, L500.4100 #### [facility] Laboratory [address] [place], [address] Cholesterol in LDL [Mass/Vol] 98 mg/dL Normal [facility] Comment on above: Result Comment: Bord tiving=717-311 mg/dL Higher Tbpu=305 mg/dL or greater Performed By: #### L 500.3400, L500.4100 #### [facility] Laboratory [address] [place], [address] Cholesterol in VLDL [Mass/Vol] 16 mg/dL Normal 5-40 [facility] Comment on above: Performed By: #### L 500.3400, L500.4100 #### [facility] Laboratory [address] [place], [address] Triglyceride [Mass/Vol] 81 mg/dL Normal [facility] Comment on above: Result Comment: The drugs N-Acetylcysteine and Metamizole may falsely depress this assay. Normal range: <150 mg/dL Borderline High: 150-199 mg/dL High: 200-499 mg/dL Very High: >500 mg/dL Performed By: #### L 500.3400, L500.4100 #### [facility] Laboratory [address] [place], [address] Liver Profileon 10-03-2024 Albumin [Mass/Vol] 4.3 g/dL Normal 3.4-4.8 [facility] Comment on above: Performed By: #### L 500.3400, L500.4100 #### [facility] Laboratory [address] [place], [address] ALK PHOS 68 U/L Normal 40-129 [facility] Comment on above: Performed By: #### L 500.3400, L500.4100 #### [facility] Laboratory [address] [place], [address] ALT [Catalytic activity/Vol] 31 U/L Normal <=46 [facility] Comment on above: Performed By: #### L 500.3400, L500.4100 #### [facility] Laboratory [address] [place], [address] AST [Catalytic activity/Vol] 30 U/L Normal <=37 [facility] Comment on above: Performed By: #### L 500.3400, L500.4100 #### [facility] Laboratory [address] [place], [address] Bilirubin [Mass/Vol] 0.60 mg/dL Normal 0.00-1.30 [facility] Comment on above: Performed By: #### L 500.3400, L500.4100 #### [facility] Laboratory [address] [place], [address] Bilirubin.direct [Mass/Vol] 0.29 mg/dL Normal 0.00-0.30 [facility] Comment on above: Performed By: #### L 500.3400, L500.4100 #### [facility] Laboratory [address] [place], [address] Globulin (S) [Mass/Vol] 2.5 g/dL Normal 2.2-4.2 [facility] Comment on above: Performed By: #### L 500.3400, L500.4100 #### [facility] Laboratory [address] [place], [address] T PROT 6.8 g/dL Normal 5.9-8.4 [facility] Comment on above: Performed By: #### L 500.3400, L500.4100 #### [facility] Laboratory [address] [place], [address] Potassium measurement (mass/ volume)Ordered By: Adalgisa Gomez on 10-03-2024 Potassium (Unsp spec) [Mass/Vol] 3.6 mmol/L 3.3-5.1 [facility] Screening total cholesterol/ high density lipoprotein (HDL) cholesterol ratioOrdered By: Magdalene Driver on 10-03-2024 Cholesterol.total/Chol esterol in HDL [Mass ratio] 3.77 {ratio} [facility] Serum creatinine measurement (mass/volume)Ordered By: Adalgisa Gomez on 10-03-2024 Creatinine [Mass/Vol] 0.99 mg/dL 0.70-1.20 [facility] Serum globulin measurementOr dered By: Magdalene Driver on 10-03-2024 Globulin (S) [Mass/Vol] 2.5 g/dL 2.2-4.2 [facility] Serum glucose measurement (m ass/volume)Ordered By: Adalgisa Gomez on 10-03-2024 Glucose [Mass/Vol] 126 mg/dL High 70-99 [facility] Serum or plasma alanine crowe otransferase (ALT) measurementOrdered By: Magdalene Driver on 10-03-2024 ALT [Catalytic activity/Vol] 31 U/L <47 [facility] Serum or plasma albumin martha urement (mass/volume)Ordered By: Magdalene Driver on 10-03-2024 Albumin [Mass/Vol] 4.3 g/dL 3.4-4.8 [facility] Serum or plasma alkaline filomena sphatase measurementOrdered By: Magdalene Driver on 10-03-2024 ALP [Catalytic activity/Vol] 68 U/L 40-129 [facility] Serum or plasma calcium martha urement (mass/volume)Ordered By: Adalgisa Gomez on 10-03-2024 Calcium [Mass/Vol] 9.3 mg/dL 7.6-11.0 [facility] Serum or plasma cholesterol in HDL measurement (mass/volume)Ordered By: Magdalene Driver on 10-03-2024 Cholesterol in HDL [Mass/Vol] 41 mg/dL >40 [facility] Comment on above: National Cholesterol Education Program (NCEP) guidelines:<40 mg/dL: Low HDL-cholesterol (major risk factor for CHD)>= 60 mg/dL: High HDL-cholesterol (negative risk factor for CHD)HDL-cholesterol is affected by a number of factors, e.g. smoking, exercise, hormones, sex and age. Serum or plasma cholesterol measurement (mass/volume)Ordered By: Magdalene Driver on 10-03-2024 Cholesterol [Mass/Vol] 156 mg/dL <201 [facility] Comment on above: Cholesterol level, D esirable <200 mg/dLBorderline high cholesterol 200-239 mg/dLHigh cholesterol >=240 mg/dLRecommendations of the NCEP Adult Treatment Panel for the following risk-cutoff thresholds for the [place] population. Serum or plasma urea nitroge n measurement (mass/volume)Ordered By: Adalgisa Gomez on 10-03-2024 Urea nitrogen [Mass/Vol] 25 mg/dL High 4-19 [facility] Sodium levelOrdered By: Abril Gomez on 10-03-2024 Sodium [Moles/Vol] 139 mmol/L 133-145 [facility] Total proteinOrdered By: Sanchez sylvesterulisses Driver on 10-03-2024 Protein [Mass/Vol] 6.8 g/dL 5.9-8.4 [facility] Triglycerides measurementOrd ered By: Magdalene Driver on 10-03-2024 Triglyceride [Mass/Vol] 81 mg/dL <199 [facility] Comment on above: The drugs N-Acetylcy steine and Metamizole may falsely depress this assay. Normal range: <150 mg/dLBorderline High: 150-199 mg/dLHigh: 200-499 mg/dLVery High: >500 mg/dL Gastroenterology Visit Repor ton 09-10-2024 Gastroenterology Visit Report [facility] [address] [place] [address] OFFICE VISIT Date of Service: 09/10/24 MR#: [id number] Acct: [id number] Name: SRINATH PEPE SELIN Rep #: [id number] : 1960 Provider: Dr. Jasson francois MD Age/Sex: 63/M Location: [facility] Status: Signed Intake Vital Signs 05/13/24 08:36 07/22/24 11:05 09/10/24 08:19 Height 6 ft 4 in 6 ft 4 in 6 ft 4 in Weight: 251 lb BMI 30.5 BP 113/75 Respiration 16 Pulse 64 Pulse Oximetry (%) 94 Oxygen Delivery Method room air Intake Visit Reasons: 4 M FU Chief Complaint: Cirrhosis Receiving Weigher Required: No Is patient in pain?: No [...] Note: No complaints. Has been feeling well. [facility] Medical History (Updated 09/10/24 @ 08:24 by [...] echogenicity with (more content not included)... Normal [facility] Absolute lymphocyte countOrd ered By: Jasson Doan on 09-01-2024 Lymphocytes Auto (Unsp spec) [#/Vol] 1.47 10*3/uL 0.83-4.51 [facility] Absolute neutrophil countOrd ered By: Jasson Doan on 09-01-2024 Neutrophils (Bld) [#/Vol] 3.1 10*3/uL 2.0-7.7 [facility] Anion gap in Serum or Plasma Ordered By: Jasson Doan on 09-01-2024 Anion gap [Moles/Vol] 11 mmol/L 5-15 [facility] Automated lymphocyte count a s percentage of total leukocytesOrdered By: Jasson Doan on 09-01-2024 Lymphocytes/100 WBC Auto (Unsp spec) 28.4 % 19-41 [facility] BUN/creatinine ratioOrdered By: Jasson Doan on 09-01-2024 Urea nitrogen/Creatinine [Mass ratio] 27.7 mg/mg High 10-20 [facility] Basophil percentageOrdered B y: Jasson Doan on 09-01-2024 Basophils/100 WBC (Bld) 0.6 % 0-1 [facility] Bilirubin, totalOrdered By: Jasson Doan on 09-01-2024 Bilirubin [Mass/Vol] 0.89 mg/dL 0.00-1.30 [facility] CBC W/Diff, Automatedon 08-04 Absolute Lymph 1.47 X10 3/uL Normal 0.83-4.51 [facility] Comment on above: Performed By: #### L 100.0100, L500.4050, L300.3900, L500.4100 #### [facility] Laboratory [address] [place], [address] Absolute Neut 3.1 X10 3/uL Normal 2.0-7.7 [facility] Comment on above: Performed By: #### L 100.0100, L500.4050, L300.3900, L500.4100 #### [facility] Laboratory [address] [place], [address] Basophils/100 WBC (Bld) 0.6 % Normal 0-1 [facility] Comment on above: Performed By: #### L 100.0100, L500.4050, L300.3900, L500.4100 #### [facility] Laboratory [address] [place], [address] Eosinophils/100 WBC (Bld) 1.5 % Normal 0-5 [facility] Comment on above: Performed By: #### L 100.0100, L500.4050, L300.3900, L500.4100 #### [facility] Laboratory [address] [place], [address] Erythrocyte distribution width (RBC) [Ratio] 13.5 % Normal 11.6-14.6 [facility] Comment on above: Performed By: #### L 100.0100, L500.4050, L300.3900, L500.4100 #### [facility] Laboratory [address] [place], [address] Hematocrit (Bld) [Volume fraction] 45.6 % Normal 40-54 [facility] Comment on above: Performed By: #### L 100.0100, L500.4050, L300.3900, L500.4100 #### [facility] Laboratory [address] [place], [address] Hemoglobin (Bld) [Mass/Vol] 15.7 g/dL Normal 13.0-16.5 [facility] Comment on above: Performed By: #### L 100.0100, L500.4050, L300.3900, L500.4100 #### [facility] Laboratory [address] [place], [address] IG% 0.200 Normal 0.0-0.9 [facility] Comment on above: Result Comment: IG% - Immature Granulocytes (promyelocytes, myelocytes and metamyelocytes) > 1% indicates that a LEFT SHIFT is Present. Performed By: #### L 100.0100, L500.4050, L300.3900, L500.4100 #### [facility] Laboratory [address] [place], [address] Lymphocytes/100 WBC (Bld) 28.4 % Normal 19-41 [facility] Comment on above: Performed By: #### L 100.0100, L500.4050, L300.3900, L500.4100 #### [facility] [address] [place], [address] MCH (RBC) [Entitic mass] 29.3 pg Normal 27.0-32.0 [facility] Comment on above: Performed By: #### L 100.0100, L500.4050, L300.3900, L500.4100 #### [facility] Laboratory [address] [place], [address] MCHC (RBC) [Mass/Vol] 34.4 g/dL Normal 32-36 [facility] Comment on above: Performed By: #### L 100.0100, L500.4050, L300.3900, L500.4100 #### [facility] Laboratory [address] [place], [address] MCV (RBC) [Entitic vol] 85.1 fL Normal 80-94 [facility] Comment on above: Performed By: #### L 100.0100, L500.4050, L300.3900, L500.4100 #### [facility] Laboratory [address] [place], [address] Monocytes/100 WBC (Bld) 10.3 % High 0-10 [facility] Comment on above: Performed By: #### L 100.0100, L500.4050, L300.3900, L500.4100 #### [facility] Laboratory [address] [place], [address] Neutrophils/100 WBC (Bld) 59.0 % Normal 47-70 [facility] Comment on above: Performed By: #### L 100.0100, L500.4050, L300.3900, L500.4100 #### [facility] Laboratory [address] [place], [address] Nucleated RBC (Bld) [#/Vol] 0 10*3/uL Normal 0-5 [facility] Comment on above: Performed By: #### L 100.0100, L500.4050, L300.3900, L500.4100 #### [facility] Laboratory [address] [place], [address] Platelet mean volume (Bld) [Entitic vol] 10.6 fL Normal 6.2-12.0 [facility] Comment on above: Performed By: #### L 100.0100, L500.4050, L300.3900, L500.4100 #### [facility] Laboratory [address] [place], [address] Platelets (Bld) [#/Vol] 112 10*3/uL Low 150-450 [facility] Comment on above: Performed By: #### L 100.0100, L500.4050, L300.3900, L500.4100 #### [facility] Laboratory [address] [place], [address] RBC (Bld) [#/Vol] 5.36 10*6/uL Normal 4.6-6.2 [facility] Comment on above: Performed By: #### L 100.0100, L500.4050, L300.3900, L500.4100 #### [facility] Laboratory [address] [place], [address] RDW SD 42.1 fl Normal 35.1-43.9 [facility] Comment on above: Performed By: #### L 100.0100, L500.4050, L300.3900, L500.4100 #### [facility] Laboratory [address] [place], [address] WBC (Bld) [#/Vol] 5.2 10*3/uL Normal 4.4-11.0 [facility] Comment on above: Performed By: #### L 100.0100, L500.4050, L300.3900, L500.4100 #### [facility] Laboratory [address] [place], [address] Calculated very low density lipoprotein (VLDL) cholesterol measurementOrdered By: Jasson Doan on 09-01-2024 Calculated very low density lipoprotein (VLDL) cholesterol measurement 15 mg/dL 5-40 [facility] VLDL Cholesterol 15 mg/dL 5-40 [facility] Carbon dioxide, total [Moles /volume] in Central venous bloodOrdered By: Jasson Doan on 09-01-2024 CO2 [Moles/Vol] 23.5 mmol/L 21.0-32.0 [facility] Chloride assayOrdered By: Meena Doan on 09-01-2024 Chloride [Moles/Vol] 105 mmol/L 98-108 [facility] Comprehensive Metabolic Prof ilon 09-01-2024 Albumin [Mass/Vol] 4.7 g/dL Normal 3.4-4.8 [facility] Comment on above: Performed By: #### L 100.0100, L500.4050, L300.3900, L500.4100 ####[facility] [address] [place], [address] Albumin/Globulin [Mass ratio] 1.7 {ratio} Normal 0.9-2.4 [facility] Comment on above: Performed By: #### L 100.0100, L500.4050, L300.3900, L500.4100 ####[facility] [address] [place], [address] ALK PHOS 71 U/L Normal 40-129 [facility] Comment on above: Performed By: #### L 100.0100, L500.4050, L300.3900, L500.4100 ####[facility] [address] [place], [address] ALT [Catalytic activity/Vol] 32 U/L Normal <=46 [facility] Comment on above: Performed By: #### L 100.0100, L500.4050, L300.3900, L500.4100 ####[facility] [address] [place], [address] AST [Catalytic activity/Vol] 32 U/L Normal <=37 [facility] Comment on above: Performed By: #### L 100.0100, L500.4050, L300.3900, L500.4100 ####[facility] [address] [place], [address] Bilirubin [Mass/Vol] 0.89 mg/dL Normal 0.00-1.30 [facility] Comment on above: Performed By: #### L 100.0100, L500.4050, L300.3900, L500.4100 ####[facility] [address] [place], [address] BUN/CRE 27.7 RATIO High 10-20 [facility] Comment on above: Performed By: #### L 100.0100, L500.4050, L300.3900, L500.4100 ####[facility] [address] [place], [address] Calcium [Mass/Vol] 9.5 mg/dL Normal 7.6-11.0 [facility] Comment on above: Performed By: #### L 100.0100, L500.4050, L300.3900, L500.4100 ####[facility] [address] [place], [address] Chloride [Moles/Vol] 105 mmol/L Normal 98-108 [facility] Comment on above: Performed By: #### L 100.0100, L500.4050, L300.3900, L500.4100 ####[facility] [address] [place], [address] CO2 [Moles/Vol] 23.5 mmol/L Normal 21.0-32.0 [facility] Comment on above: Performed By: #### L 100.0100, L500.4050, L300.3900, L500.4100 ####[facility] [address] [place], [address] Creatinine [Mass/Vol] 0.94 mg/dL Normal 0.70-1.20 [facility] Comment on above: Performed By: #### L 100.0100, L500.4050, L300.3900, L500.4100 ####[facility] [address] [place], [address] GAP 11 Normal 5-15 [facility] Comment on above: Performed By: #### L 100.0100, L500.4050, L300.3900, L500.4100 ####[facility] [address] [place], [address] GFR/1.73 sq M.predicted among non-blacks MDRD (S/P/Bld) [Vol rate/Area] 91 mL/min/{1.73_m2} Normal >60 [facility] Comment on above: Result Comment: mL/m in/1.73m2 CKD-EPI Creatinine Equation (2020) Performed By: #### L 100.0100, L500.4050, L300.3900, L500.4100 ####[facility] [address] [place], [address] Globulin (S) [Mass/Vol] 2.8 g/dL Normal 2.2-4.2 [facility] Comment on above: Performed By: #### L 100.0100, L500.4050, L300.3900, L500.4100 ####[facility] [address] [place], [address] Glucose [Mass/Vol] 97 mg/dL Normal 70-99 [facility] Comment on above: Performed By: #### L 100.0100, L500.4050, L300.3900, L500.4100 ####[facility] [address] [place], [address] Potassium [Moles/Vol] 4.0 mmol/L Normal 3.3-5.1 [facility] Comment on above: Performed By: #### L 100.0100, L500.4050, L300.3900, L500.4100 ####[facility] [address] [place], [address] Sodium [Moles/Vol] 139 mmol/L Normal 133-145 [facility] Comment on above: Performed By: #### L 100.0100, L500.4050, L300.3900, L500.4100 ####[facility] [address] [place], [address] T PROT 7.4 g/dL Normal 5.9-8.4 [facility] Comment on above: Performed By: #### L 100.0100, L500.4050, L300.3900, L500.4100 ####[facility] [address] [place], [address] Urea nitrogen [Mass/Vol] 26 mg/dL High 4-19 [facility] Comment on above: Performed By: #### L 100.0100, L500.4050, L300.3900, L500.4100 ####[facility] [address] [place], [address] Eosinophil percentageOrdered By: Jasson Daon on 09-01-2024 Eosinophils/100 WBC (Bld) 1.5 % 0-5 [facility] Erythrocyte distribution wid th (RBC) [Ratio]Ordered By: Jasson Doan on 09-01-2024 Erythrocyte distribution width (RBC) [Entitic vol] 42.1 fL 35.1-43.9 [facility] Erythrocyte distribution wid th ratioOrdered By: Jasson Doan on 09-01-2024 Erythrocyte distribution width (RBC) [Ratio] 13.5 % 11.6-14.6 [facility] Erythrocyte distribution wid th standard deviationOrdered By: Jasson Doan on 09-01-2024 Erythrocyte distribution width (RBC) [Ratio] 42.1 fl 35.1-43.9 [facility] GFR/1.73 sq M.predicted lu g non-blacks MDRD (S/P/Bld) [Vol rate/Area]Ordered By: Jasson Doan on 09-01-2024 Estimated GFR (MDRD) Non-Af Amer 91 >60 [facility] Comment on above: mL/min/1.73m2 CKD-EP I Creatinine Equation (2020) Glomerular filtration rate ( GFR) estimation/1.73 sq m using serum, plasma, or whole bOrdered By: Jasson Doan on 09-01-2024 GFR/1.73 sq M.predicted among non-blacks MDRD (S/P/Bld) [Vol rate/Area] 91 mL/min/{1.73_m2} >60 [facility] Comment on above: mL/min/1.73m2 CKD-EP I Creatinine Equation (2020) Hematocrit Auto (Bld) [Volum e fraction]Ordered By: Jasson Doan on 09-01-2024 Hematocrit (Bld) [Volume fraction] 45.6 % 40-54 [facility] Hemoglobin measurementOrdere d By: Jasson Doan on 09-01-2024 Hemoglobin (Bld) [Mass/Vol] 15.7 g/dL 13.0-16.5 [facility] Immature granulocytes/100 WB C Auto (Bld)Ordered By: Jasson Doan on 09-01-2024 Immature granulocytes/100 WBC (Bld) 0.200 % 0.0-0.9 [facility] Comment on above: IG% - Immature Granu locytes (promyelocytes, myelocytes and metamyelocytes) > 1% indicates that a LEFT SHIFT is Present. International normalized rat io (INR) calculationOrdered By: Jasson Doan on 09-01-2024 INR Coag (Bld) [Relative time] 1.1 {INR} [facility] LDL calc ser/plasOrdered By: Jasson Doan on 09-01-2024 Cholesterol in LDL [Mass/Vol] 119 mg/dL [facility] Comment on above: Yyobmcxyhh=531-500 m g/dL & Higher Cwng=126 mg/dL or greater LDL Cholesterol, Calculated 119 mg/dL [facility] Comment on above: Axklphszps=733-457 m g/dL & Higher Ssqo=283 mg/dL or greater Laboratory - Chemistry and C hemistry - challengeOrdered By: Jasson Doan on 09-01-2024 AST [Catalytic activity/Vol] 32 U/L <38 [facility] Lipid Profileon 09-01-2024 CHOL:HDL 3.81 Normal [facility] Comment on above: Performed By: #### L 100.0100, L500.4050, L300.3900, L500.4100 ####[facility] [address] [place], [address] Cholesterol [Mass/Vol] 182 mg/dL Normal <=200 [facility] Comment on above: Result Comment: Chol esterol level, Desirable <200 mg/dL Borderline high cholesterol 200-239 mg/dL High cholesterol >=240 mg/dL Recommendations of the NCEP Adult Treatment Panel for the following risk-cutoff thresholds for the [place] population. Performed By: #### L 100.0100, L500.4050, L300.3900, L500.4100 ####[facility] [address] [place], [address] Cholesterol in HDL [Mass/Vol] 48 mg/dL Normal [facility] Comment on above: Result Comment: Katt onal Cholesterol Education Program (NCEP) guidelines: <40 mg/dL: Low HDL-cholesterol (major risk factor for CHD) >= 60 mg/dL: High HDL-cholesterol (negative risk factor for CHD) HDL-cholesterol is affected by a number of factors, e.g. smoking, exercise, hormones, sex and age. Performed By: #### L 100.0100, L500.4050, L300.3900, L500.4100 ####[facility] [address] [place], [address] Cholesterol in LDL [Mass/Vol] 119 mg/dL Normal [facility] Comment on above: Result Comment: Bord bsdhny=429-311 mg/dL Higher Ihef=974 mg/dL or greater Performed By: #### L 100.0100, L500.4050, L300.3900, L500.4100 ####[facility] [address] [place], [address] Cholesterol in VLDL [Mass/Vol] 15 mg/dL Normal 5-40 [facility] Comment on above: Performed By: #### L 100.0100, L500.4050, L300.3900, L500.4100 ####[facility] [address] [place], [address] Triglyceride [Mass/Vol] 74 mg/dL Normal [facility] Comment on above: Result Comment: The drugs N-Acetylcysteine and Metamizole may falsely depress this assay. Normal range: <150 mg/dL Borderline High: 150-199 mg/dL High: 200-499 mg/dL Very High: >500 mg/dL Performed By: #### L 100.0100, L500.4050, L300.3900, L500.4100 ####[facility] [address] [place], [address] Lymphocytes Auto (Unsp spec) [#/Vol]Ordered By: Jasson Doan on 09-01-2024 Lymphocytes (Bld) [#/Vol] 1.47 10*3/uL 0.83-4.51 [facility] Lymphocytes/100 WBC Auto (Un sp spec)Ordered By: Jasson Doan on 09-01-2024 Lymphocytes/100 WBC (Bld) 28.4 % 19-41 [facility] MCV (mean corpuscular volume ) determinationOrdered By: Jasson Doan on 09-01-2024 MCV (RBC) [Entitic vol] 85.1 fL 80-94 [facility] Mean corpuscular hemoglobin (MCH) determinationOrdered By: Jasson Doan on 09-01-2024 MCH (RBC) [Entitic mass] 29.3 pg 27.0-32.0 [facility] Mean corpuscular hemoglobin concentration (MCHC) determinationOrdered By: Jasson Doan on 09-01-2024 MCHC (RBC) [Mass/Vol] 34.4 g/dL 32-36 [facility] Mean platelet volume determi nationOrdered By: Jasson Doan on 09-01-2024 Platelet mean volume (Bld) [Entitic vol] 10.6 fL 6.2-12.0 [facility] Monocyte percentageOrdered B y: Jasson Doan on 09-01-2024 Monocytes/100 WBC (Bld) 10.3 % High 0-10 [facility] Neutrophil percentageOrdered By: Jasson Doan on 09-01-2024 Neutrophils/100 WBC (Bld) 59.0 % 47-70 [facility] Nucleated red blood cell per centageOrdered By: Jasson Doan on 09-01-2024 Nucleated RBC/100 WBC (Bld) [Ratio] 0 % 0-5 [facility] Platelet countOrdered By: Meena Doan on 09-01-2024 Platelets (Bld) [#/Vol] 112 10*3/uL Low 150-450 [facility] Potassium (Unsp spec) [Mass/ Vol]Ordered By: Jasson Doan on 09-01-2024 Potassium [Moles/Vol] 4.0 mmol/L 3.3-5.1 [facility] Potassium measurement (mass/ volume)Ordered By: Jasson Doan on 09-01-2024 Potassium (Unsp spec) [Mass/Vol] 4.0 mmol/L 3.3-5.1 [facility] Prothrombin Time w/INRon INR Coag (PPP) [Relative time] 1.1 {INR} Normal [facility] Comment on above: Performed By: #### L 100.0100, L500.4050, L300.3900, L500.4100 #### [facility] Laboratory [address] [place], [address] PT Coag (PPP) [Time] 14.7 s Normal 11.7-14.9 [facility] Comment on above: Performed By: #### L 100.0100, L500.4050, L300.3900, L500.4100 #### [facility] [address] [place], [address] Prothrombin timeOrdered By: Jasson Doan on 09-01-2024 PT Coag (PPP) [Time] 14.7 s 11.7-14.9 [facility] RBC Auto (Bld) [#/Vol]Ordere d By: Jasson Doan on 09-01-2024 RBC (Bld) [#/Vol] 5.36 10*6/uL 4.6-6.2 [facility] Screening total cholesterol/ high density lipoprotein (HDL) cholesterol ratioOrdered By: Jasson Doan on 09-01-2024 Cholesterol.total/Chol esterol in HDL [Mass ratio] 3.81 {ratio} [facility] Serum creatinine measurement (mass/volume)Ordered By: Jasson Doan on 09-01-2024 Creatinine [Mass/Vol] 0.94 mg/dL 0.70-1.20 [facility] Serum globulin measurementOr dered By: Jasson Doan on 09-01-2024 Globulin (S) [Mass/Vol] 2.8 g/dL 2.2-4.2 [facility] Serum glucose measurement (m ass/volume)Ordered By: Jasson Doan on 09-01-2024 Glucose [Mass/Vol] 97 mg/dL 70-99 [facility] Serum or plasma alanine crowe otransferase (ALT) measurementOrdered By: Jasson Doan on 09-01-2024 ALT [Catalytic activity/Vol] 32 U/L <47 [facility] Serum or plasma albumin martha urement (mass/volume)Ordered By: Jasson Doan on 09-01-2024 Albumin [Mass/Vol] 4.7 g/dL 3.4-4.8 [facility] Serum or plasma albumin/glob ulin mass ratioOrdered By: Jasson Doan on 09-01-2024 Albumin/Globulin [Mass ratio] 1.7 {ratio} 0.9-2.4 [facility] Serum or plasma alkaline filomena sphatase measurementOrdered By: Jasson Doan on 09-01-2024 ALP [Catalytic activity/Vol] 71 U/L 40-129 [facility] Serum or plasma calcium martha urement (mass/volume)Ordered By: Jasson Doan on 09-01-2024 Calcium [Mass/Vol] 9.5 mg/dL 7.6-11.0 [facility] Serum or plasma cholesterol in HDL measurement (mass/volume)Ordered By: Jasson Doan on 09-01-2024 Cholesterol in HDL [Mass/Vol] 48 mg/dL >40 [facility] Comment on above: National Cholesterol Education Program (NCEP) guidelines:<40 mg/dL: Low HDL-cholesterol (major risk factor for CHD)>= 60 mg/dL: High HDL-cholesterol (negative risk factor for CHD)HDL-cholesterol is affected by a number of factors, e.g. smoking, exercise, hormones, sex and age. Serum or plasma cholesterol measurement (mass/volume)Ordered By: Jasson Doan on 09-01-2024 Cholesterol [Mass/Vol] 182 mg/dL <201 [facility] Comment on above: Cholesterol level, D esirable <200 mg/dLBorderline high cholesterol 200-239 mg/dLHigh cholesterol >=240 mg/dLRecommendations of the NCEP Adult Treatment Panel for the following risk-cutoff thresholds for the [place] population. Serum or plasma urea nitroge n measurement (mass/volume)Ordered By: Jasson Doan on 09-01-2024 Urea nitrogen [Mass/Vol] 26 mg/dL High 4-19 [facility] Sodium levelOrdered By: Sammie Doan on 09-01-2024 Sodium [Moles/Vol] 139 mmol/L 133-145 [facility] Total proteinOrdered By: Mariel Doan on 09-01-2024 Protein [Mass/Vol] 7.4 g/dL 5.9-8.4 [facility] Triglycerides measurementOrd ered By: Jasson Doan on 09-01-2024 Triglyceride [Mass/Vol] 74 mg/dL <199 [facility] Comment on above: The drugs N-Acetylcy steine and Metamizole may falsely depress this assay. Normal range: <150 mg/dLBorderline High: 150-199 mg/dLHigh: 200-499 mg/dLVery High: >500 mg/dL White blood cell (WBC) count Ordered By: Jasson Doan on 09-01-2024 WBC (Bld) [#/Vol] 5.2 10*3/uL 4.4-11.0 [facility] Echo Completeon 08-21-2024 Echo Complete [facility] [place] [address] Echo Complete 08/21/24 1312 MR#: [id number] Acct: [id number] Name: SRINATH PEPE Rep #: [id number] : 1960 63 From: Jonathan Saleem MD Attending Dr: Dr. Jonathan Saleem MD Status: PHILLY PIERSON Ordering Dr: Jonathan Saleem MD Date: 08/21/24 Location: [facility] Sex: M C Admitted: Reason For Study [...] Physician: Kevon Mackey Performed By: Jessica Garcia, LÁZARO, RVT 08/21/24 1444 Date Jonathan Saleem MD CC: Dr. Jonathan Saleem MD; Dr. Kevon Mackey, Date Dictated: 08/21/24 1312 Date Transcribed: 08/21/24 1444 Nickel Plater: Signed Normal [facility] Echocardiogram study reportO rdered By: Jonathan Saleem on 08-21-2024 Study report [facility] [address] [place] [address] Echo Complete 08/21/24 1312 MR#: [id number] Acct: [id number] Name: SRINATH PEPE Rep #:[id number] : 1960 63 From: Jonathan Francois Attending Dr: Dr. Jonathan Saleem MD S tatus: REG CLI Ordering Dr: Jonathan Saleem MD Date: Location: [facility] Sex: M C Admitted: Reason For Study [...] Dr. Jonathan Saleem MD; Dr. Kevon Mackey, ~ Date Dictated: 08/21/24 1312 Date Transcribed: 08/21/24 1444 Nickel Plater: Signed [facility] Work Phone: Coronary Angiography CTon Coronary Angiography CT [facility] Services [address] [place] [id number] 08/18/24 0741 MR#: [id number] Acct: [id number] Name: SRINATH PEPE SELIN Rep #: [id number] : 1960 63 From: Jonathan Saleem MD [...] MD; Dr. Kevon Mackey DO Signed Normal [facility] Limited Chest CT Cardiac Onl yon 08-12-[address] Cardiac Only [facility] Services [address] [place] [id number] Cardiac Only MR#: [id number] Acct: [id number] Name: SRINATH PEPE Rep #: [id number] : 1960 M 63 From: Tam brady MD PCP: Dr. Kevon Mackey DO Status: REG REF Study: Limited Chest CT Cardiac Only Date of Exam: Exam# [id number] Ordering Dr: Jonathan Saleem MD PROCEDURE: LIMITED [...] use of iterative reconstruction technique). Reading Location: [facility] CC: Dr. Jonathan Saleem MD; Dr. Kevon Mackey DO Nickel Plater: Signed Normal [facility] EGD Reporton 07-22-2024 EGD Report [facility] Medical Records Department [address] [place] [id number] EGD Report MR#: [id number] Acct: [id number] Name: SRINATH PEPE Rep #: [id number] : 1960 63 From: Bismark Montoya DO PCP: Dr. Kevon Mackey DO Status:REG SDC Patient Name: Srinath Pepe Procedure Date: 07/22/2024 [...] for retreatment. Procedure Code(s): --- Professional --- 62133, Esophagogastroduodenoscopy, flexible, transoral; with band ligation of esophageal/gastric varices 91825, Esophagogastroduodenoscopy, flexible, transoral; with biopsy, single or multiple CPT copyright 2021 [employer]. All rights reserved. The codes documented in this report are preliminary and upon supervisor machine workers review may be revised to meet current compliance requirements. Bismark Montoya DO 07/22/2024 12:50:14 PM This report has been signed electronically. Number of Addenda: 0 Note Initiated On: 07/22/2024 12:26 PM 07/22/24 1250 Date Bismark Montoya DO Cosigner Signature: Date (if indicated) CC: Dr. Kevon Mackey DO; Bismark Montoya DO Date Dictated: 07/22/24 1226 Date Transcribed: Nickel Plater: VOLODYMYR Signed Normal [facility] H Pylori (initial)on H Pylori (initial) ------- Patient Age/Sex Location Account Attending Physician SRINATH PEPE/M EN [id number] Bismark Montoya DO Specimen: [id number] Received: 07/23/24 Status: PAPA Baum Num: [id number] Spec Type: IMMUNO Subm Dr: Bismark Montoya, PHYSICIAN INSTITUTION [address] [address] SPECIMEN INFORMATION: Tissue Source: Gastric body biopsy Clinical Info: Alcoholic cirrhosis of liver, dyslipidemia Specimen Number: [id number] CPT code: 55101 METHODOLOGY: Deparaffinized sections of prefer/formalin-fixed tissue or PAP/DQ stained slides are incubated with monoclonal/polyclonal antibodies/oligonucleotide probes. Localization is made via biotin free immunoperoxidase method. Appropriate controls are performed and reacted as expected. Results on target cell population are indicated in the following table: RESULTS: ANTIBODY / CLONE RESULT H Pylori (polyclonal) negative These tests were developed and their performance characteristics determined by [facility]. They may not have been cleared or approved by the U.S. Food and Drug Administration. The FDA has determined that such clearance or approval is not necessary. The above immunohistochemical/dualISH markers are ordered and reviewed by the Pathologist. INTERPRETATION: Gastric body, biopsy: Negative for Helicobacter pylori organisms. 07/24/2024 Signed (signature on file) Dr. Vipin Caruso MD 07/24/24 1359 Normal [facility] Comment on above: Performed By: #### P H.PYLORI #### [facility] Laboratory [address] [place] [address], [id number] MR/POSTOP.Hero 07-22-2024 MR/POSTOP.ANE [facility] Medical Records Department [address] [place] [address] Anesthesia Postop Eval I 07/22/24 1253 MR#: [id number] Acct: [id number] Name: SRINATH PEPE SELIN Rep #: [id number] : 1960 63 From: Tom Lara PCP: Dr. Kevon Mackey, DO Status:[facility] Y Race: C Location: [place] [address] Anesthesia: Postop Eval I Current Vital Signs [...] Tom Barlow Signature: Date CC: Signed Normal [facility] MR/[id number] 07-22-2024 /[facility] Medical Records Department [address] [place] [address] Anesthesia Postop Eval II 07/22/24 1409 MR#: [id number] Acct: [id number] Name: SRINATH PEPE SELIN Rep #: [id number] : 1960 63 From: Roby Maki MD PCP: Dr. Kevon Mackey, DO Status:DEP SD Y Race: C Location: EN Anesthesia Postop [...] Roby Greenwooder Signature: Date CC: Signed Normal [facility] Surgery Specimen Level Nancie 07-22-2024 Surgery Specimen Level IV Patient Age/Sex Location Account Attending Physician SRINATH PEPE 63/M EN [id number] Bismark Montoya DO Specimen: [id number] Received: 07/22/24 Status: PAPA Baum Num: [id number] Spec Type: EGD BIOPSY Subm Dr: Bismark Montoya DO HEADER OPERATION: EGD, biopsy, banding PRE-OP DIAGNOSIS: Alcoholic cirrhosis of liver, dyslipidemia TISSUE SUBMITTED: Gastric body biopsy MICROSCOPIC DIAGNOSIS Gastric body, biopsy: Mild gastritis. See microscopic description and comment. 07/24/2024 COMMENT The results of immunohistochemistry for Helicobacter pylori will be reported separately ([id number]). MICROSCOPIC DESCRIPTION Slides are reviewed. The specimen [...] totally submitted in one cassette. 07/23/2024 TC:3 CPT:67780 Patient Age/Sex Location Account Attending Physician SRINATH PEPE 63/M EN [id number] Bismark Montoya DO Signed (signature on file) Dr. Vipin Caruso MD 07/24/24 1211 Normal [facility] Comment on above: Performed By: #### P SUIV ####[facility] [address] [place], [id number] 12 Lead EKG performed by [facility] on 07-18-2024 12 Lead EKG performed by [facility] [place] [address] [place] [address] 12 Lead EKG performed by [facility] 07/18/24 1333 MR#: [id number] Acct: [id number] Name: SRINATH PEPE Rep #: [id number] : 1960 63 From: Jonathan Saleem MD Attending Dr: Dr. Jonathan Saleem MD Status: DEP A MB Ordering Dr: Jonathan Saleem MD Date: 07/18/24 [place] [facility] Sex: M C Admitted: [facility]/12 Lead EKG performed by [facility] ECG Report Interpretation M arked sinus Bradycardia BORDERLINE RHYTHMElectronically signed on 07/21/2024 at 08:07 by Jonathan Saleem [employer] Version 8610 07/21/24 0812 Date Jonathan Saleem MD CC: Dr. Kevon Mackey DO Date Dictated: 07/18/241332 Date Transcribed: 07/18/241332 Nickel Plater: CO Signed Normal [facility] Cardiology Visit Reporton Cardiology Visit Report [facility]. [address] [place] [address] OFFICE VISIT Date of Service: 07/18/24 MR#: [id number] Acct: [id number] Name: SRINATH PEPE SELIN Rep #: [id number] : 1960 Provider: Dr. Jonathan Saleem MD Age/Sex: 63/M Location[place] [facility] Status: Signed HPI HPI History of Present Illness Details: 63-year-old man with a history of hypertension who presents here for an evaluation of his blood pressure as well as optimization of care. He does have a history of previous cirrhosis of the liver as well and has been on medication. He did undergo an echocardiographic evaluation in [facility] in 2021 and at that time [...] room air Intake Visit Reasons: EST (SELF) Receiving Weigher Required: No Is patient in pain?: No Allergies fluoxetine (From [employer]) Allergy (Verified 07/18/24 13:37) Hives sertraline Allergy [...] fatigue Supplemental Info Supplemental Information Echocardiogram 04/14/22 (Johny Gardner) Summary L (more content not included)... [facility] MR/PATSimin 07-17-2024 MR/PATTYE [facility] Medical Records Department [address] [place] [address] PAT - Anesthesia 07/17/24 1700 MR#: [id number] Acct: [id number] Name: SRINATH PEPE Rep #: [id number] : 1960 63 From: Roby Maki MD PCP: Dr. 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 Hx Hospitalization No 07/17/24 14:55 Any Problems [...] take am of surgery PONV PONV - internet marketing consultant: PONV - internet marketing consultant Female No 07/17/24 14:55 HX of Motion [...] 05/13/24 08:36 Respiratory Assessment Respiratory Assessment - internet marketing consultant: Respiratory Tract Infection Hx - internet marketing consultant Hx Respiratory Tract Infection No 07/17/24 14:55 STOP Sleep Apnea STOP Sleep Apnea - internet marketing consultant: STOP Sleep Apnea - internet marketing consultant Hx Hypertension Yes: ON MEDS/NOT ALWAYS 07/17/24 [...] Tobacco Use History Tobacco Use History - internet marketing consultant: Tobacco Use History - internet marketing consultant Tobacco Use Smoking Status Never smoker 07/17/24 14:55 Hx Tobacco Use No 07/17/24 14:55 Years Smoking Packs Smoked per Day Smoking Cessation Date was within the last 15 years Hx Smoking Cessation Date Hx Smoking Cessation Counseling Hematologic Medial History Hematologic Hx - internet marketing consultant: Hematologic Medical Hx - taper and floater Hx of Blood Transfusion No 07/17/24 14:55 Hx of Transfusion in last 3 No 07/17/24 14:55 Months Date of Last Transfusion (if within last 3 months) Ever experience any problems No 07/17/24 14:55 with transfusion(s)? Specify any problems Hx of Preganancy in last 3 N/A 07/17/24 14:55 Months Nurse Filling Out Transfusion MGRICHARD 07/17/24 14:55 Questions: Date: 07/17/24 07/17/24 14:55 Time: 14:57 07/17/24 14:55 Patient unable to answer at this time (ie. confused, unrespo /Reproduction History /Reproductive History - internet marketing consultant: /Reproductive Hx- internet marketing consultant Hx Now Gestational Age (in weeks): EDC: Hx Hx Para Hx Section SAB [facility] Medical History (Updated 07/17/24 @ 15:02 by [...] 6.25 mg (more content not included)... Normal [facility] ABD Limited w/ Elastographyo n 06-13-2024 ABD Limited w/ Elastography [facility] Services [address] [place] [address] ABD Limited w/ Elastography MR#: [id number] Acct: [id number] Name: SRINATH PEPE Rep #: [id number] : 1960 M 63 From: Tam brady MD PCP: Dr. Kevon Mackey, DO Status: REG CLI Study: ABD Limited w/ Elastography Date of Exam: 06/04 Exam# [id number] Ordering Dr: Jasson Doan MD [id number] STUDY: ABDOMINAL ULTRASOUND - RIGHT UPPER QUADRANT; ELASTOGRAPHY REASON FOR VISIT: Male, 63 years old. Cirrhosis. TECHNIQUE: Ultrasound evaluation of the right upper quadrant was performed with real-time and static corado-scale imaging. Point quantification shear wave elastography was performed (Holidu). TECHNICAL QUALITY: Adequate. COMPARISON: Comparison is made [...] Tam Valdez MD at 13:22 EST , [id number] STUDY: ABDOMINAL ULTRASOUND - LEFT UPPER QUADRANT [...] CC: Dr. Jasson Doan MD; Dr. Kevon Mackey, Nickel Plater: Signed Normal [facility] Gastroenterology Visit Repor ton 05-13-2024 Gastroenterology Visit Report [facility] Gastroenterology [address] [place] [address] OFFICE VISIT Date of Service: 05/13/24 MR#: [id number] Acct: [id number] Name: SRINATH PEPE Rep #: [id number] : 1960 Provider: Dr. Jasson francois MD Age/Sex: 63/M Location: [facility] Status: Signed with Addenda ADDENDUM by Dr. [...] 2008. 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 Kuo till now. Last blood work from January 2023 a (more content not included)... Normal [facility] LABORATORYOrdered By: SYSTEM SYSTEM on 03-04-2024 Prostate specific Ag [Mass/Vol] ng/mL Normal 0.00 - 4.00 ng/mL AO ADM SS PSAon 03-04-2024 Prostate Specific Antigen <0.05 Normal 0.00-4.00 [facility] Comment on above: Performed By: #### A SKYLA, CBC, GFR, VIDH, ADIFF, TSHR, CMP, LIPID, PSA #### [address] [address] #### B12 #### [place] [address] CNOVon 02-05-2024 CNOV Office Visit (ORNA ) SRINATH PEPE ([id number]) 1960 M Date Time Provider Department 02/05/24 9:30 AM MATEO SAWANT During your visit today, we recorded the following information about you: Mateo Sawant APRN.CNP 02/05/2024 9:50 AM Signed Orthopaedic Office Note: February 05, 2024 9:47 AM Srinath Johnson Messenger 63 year old History: Srinath is a [...] needed. All questions answered today. Mateo Sawant APRN.[facility] Orthopaedic Surgery I spent a total of approximately 15 minutes on the date of the service which included preparing to see the patient, [id number] patient care, completing clinical documentation, obtaining and/or reviewing separately obtained history, performing a medically appropriate examination, counseling and educating the patient/family/caregiver, and care coordination (not separately reported). Referring Provider: MATEO SAWANT [[id number]] Allergies As of Date: 02/05/2024 Noted Allergy Reaction OXYCODONE 08/13/2015 3 - Cough TYLENOL (ACETAMINOPHEN) 06/28/2015 14 - Other: See Comments Comments: Cannot take secondary to liver disease PROZAC (FLUOXETINE HCL) 03/14/2010 2 - Rash DOXAZOSIN 11/06/2022 14 - Other: See Comments Comments: Dizziness, lightheadedness, low BP SERTRALINE 11/06/2022 2 - Rash Date Reviewed: 02/05/2024 Reviewed by: Mateo Sawant 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 - Fully Assessed Reason for Visit: Established [...] Migraine without (more content not included)... Normal [facility] XR KNEE 3V AP/LAT/MERCHANT L Ton [...] fracture or joint effusion. IMPRESSION: Stable TKA Nickel Plater: KELECHI Transcribe Date/Time: Feb 05 2024 9:34A Dictated by : LUCY BOYD MD This examination was interpreted and the report reviewed and electronically signed by: LUCY BOYD MD on Feb 05 2024 9:34AM EST [id number] [facility] XR Knee AP and Lateral and M erchantson 02-05-2024 IMPRESSION: Stable T KA Nickel Plater: PSCB Transcribe Date/Time: Feb 05 2024 9:34A Dictated by : LUCY BOYD MD This examination was interpreted and the report reviewed and electronically signed by: LUCY BOYD MD on Feb 05 2024 9:34AM EST [facility] * * *Final Report* * * [...] loosening. No periprosthetic fracture or joint effusion. [facility] Provider, Nabor Vo - 02/05/2024 * * *Final Report* * [...] or joint effusion. IMPRESSION IMPRESSION: Stable TKA Nickel Plater: KELECHI Transcribe Date/Time: Feb 05 2024 9:34A Dictated by : LUCY BOYD MD This examination was interpreted and the report reviewed and electronically signed by: LUCY BOYD MD on Feb 05 2024 9:34AM EST [facility] Radiology Study observation (narrative) [facility] XR Knee AP and Lateral and M erchantsOrdered By: Ccf Provider on 02-05-2024 [facility] .Auto Diffon 01-02-2024 Basophil, Absolute 0.0 10 3/mcL Normal 0.0-0.2 [facility] ([place]) Comment on above: Performed By: #### A SKYLA, CMP, CBC, ADIFF, PSA, LIPID, TSHR, GFR #### [address] [address] #### B12 #### [facility] [address] [place] [address] Basophils/100 WBC (Bld) 0.6 % Normal 0.0-2.5 [facility] ([place]) Comment on above: Performed By: #### A SKYLA, CMP, CBC, ADIFF, PSA, LIPID, TSHR, GFR #### [address] [address] #### B12 #### [address] [address] Eosinophil, Absolute 0.0 10 3/mcL Normal 0.0-0.4 [facility] ([place]) Comment on above: Performed By: #### A SKYLA, CMP, CBC, ADIFF, PSA, LIPID, TSHR, GFR #### [place] [address] #### B12 #### [address] [address] Eosinophils/100 WBC (Bld) 1.1 % Normal 0.0-7.0 [facility] ([place]) Comment on above: Performed By: #### A SKYLA, CMP, CBC, ADIFF, PSA, LIPID, TSHR, GFR #### [place] [address] #### B12 #### [address] [address] Lymphocyte, Absolute 0.8 10 3/mcL Normal 0.8-3.9 [facility] ([place]) Comment on above: Performed By: #### A SKYLA, CMP, CBC, ADIFF, PSA, LIPID, TSHR, GFR #### [place] [address] #### B12 #### [address] [address] Lymphocytes/100 WBC (Bld) 22.7 % Normal 10.0-50.0 [facility] ([place]) Comment on above: Performed By: #### A SKYLA, CMP, CBC, ADIFF, PSA, LIPID, TSHR, GFR #### [place] [address] #### B12 #### [address] [address] Monocyte, Absolute 0.4 10 3/mcL Normal 0.2-1.0 [facility] ([place]) Comment on above: Performed By: #### A SKYLA, CMP, CBC, ADIFF, PSA, LIPID, TSHR, GFR #### [place] [address] #### B12 #### [address] [address] Monocytes/100 WBC (Bld) 11.0 % Normal 1.7-13.0 [facility] ([place]) Comment on above: Performed By: #### A SKYLA, CMP, CBC, ADIFF, PSA, LIPID, TSHR, GFR #### [address] [address] #### B12 #### [address] [address] Neutrophils/100 WBC (Bld) 64.6 % Normal 37.0-80.0 [facility] ([place]) Comment on above: Performed By: #### A SKYLA, CMP, CBC, ADIFF, PSA, LIPID, TSHR, GFR #### [address] [address] #### B12 #### [address] [address] .GFRon 01-02-2024 GFR 86 ml/min/1.73sqm Normal [facility] ([place]) Comment on above: Result Comment: GFR Population [...] CBC, ADIFF, PSA, LIPID, TSHR, GFR #### [address] [address] #### B12 #### [address] [address] GFR Non- 71 ml/min/1.73sqm Normal [facility] ([place]) Comment on above: Result Comment: GFR Population [...] CBC, ADIFF, PSA, LIPID, TSHR, GFR #### [address] [address] #### B12 #### [address] [address] .NEUABSon 01-02-2024 Neutrophil, Absolute 2.2 10 3/mcL Low 2.9-6.2 [facility] ([place]) Comment on above: Performed By: #### A SKYLA, CMP, CBC, ADIFF, PSA, LIPID, TSHR, GFR #### [address] [address] #### B12 #### [address] [address] B12on 01-02-2024 Cobalamin (Vitamin B12) [Mass/Vol] 605 pg/mL Normal 211-911 [facility] ([place]) Comment on above: Performed By: #### A SKYLA, CMP, CBC, ADIFF, PSA, LIPID, TSHR, GFR #### [address] [address] #### B12 #### [address] [address] CBCon 01-02-2024 Erythrocyte distribution width (RBC) [Ratio] 15.1 % High 11.5-14.5 [facility] ([place]) Comment on above: Performed By: #### A SKYLA, CMP, CBC, ADIFF, PSA, LIPID, TSHR, GFR #### [address] [address] #### B12 #### [address] [address] Hematocrit (Bld) [Volume fraction] 44.1 % Normal 42.0-52.0 [facility] ([place]) Comment on above: Performed By: #### A SKYLA, CMP, CBC, ADIFF, PSA, LIPID, TSHR, GFR #### [address] [address] #### B12 #### [place] [address] Hgb 14.9 G/dL Normal 14.0-18.0 [facility] ([place]) Comment on above: Performed By: #### A SKYLA, CMP, CBC, ADIFF, PSA, LIPID, TSHR, GFR #### [place] [address] #### B12 #### [address] [address] MCH (RBC) [Entitic mass] 29.1 pg Normal 27.0-31.2 [facility] ([place]) Comment on above: Performed By: #### A SKYLA, CMP, CBC, ADIFF, PSA, LIPID, TSHR, GFR #### [place] [address] #### B12 #### [place] [address] MCHC 33.8 G/dL Normal 31.8-35.4 [facility] ([place]) Comment on above: Performed By: #### A SKYLA, CMP, CBC, ADIFF, PSA, LIPID, TSHR, GFR #### [place] [address] #### B12 #### [place] [address] MCV (RBC) [Entitic vol] 86.3 fL Normal 80.0-94.0 [facility] ([place]) Comment on above: Performed By: #### A SKYLA, CMP, CBC, ADIFF, PSA, LIPID, TSHR, GFR #### [place] [address] #### B12 #### [place] [address] Platelet 86 10 3/mcL Low 130-400 [facility] ([place]) Comment on above: Performed By: #### A SKYLA, CMP, CBC, ADIFF, PSA, LIPID, TSHR, GFR #### [place] [address] #### B12 #### [place] [address] Platelet mean volume (Bld) [Entitic vol] 9.4 fL Normal 7.4-10.4 [facility] ([place]) Comment on above: Performed By: #### A SKYLA, CMP, CBC, ADIFF, PSA, LIPID, TSHR, GFR #### [place] [address] #### B12 #### [place] [address] RBC 5.11 10 6/mcL Normal 4.04-6.13 [facility] ([place]) Comment on above: Performed By: #### A SKYLA, CMP, CBC, ADIFF, PSA, LIPID, TSHR, GFR #### [place] [address] #### B12 #### [place] [address] WBC 3.5 10 3/mcL Low 4.6-10.8 [facility] ([place]) Comment on above: Performed By: #### A SKYLA, CMP, CBC, ADIFF, PSA, LIPID, TSHR, GFR #### [place] [address] #### B12 #### [place] [address] CMPon 01-02-2024 Albumin Level 4.0 G/dL Normal 3.4-4.8 [facility] ([place]) Comment on above: Performed By: #### A SKYLA, CMP, CBC, ADIFF, PSA, LIPID, TSHR, GFR #### [address] [address] #### B12 #### [address] [address] Albumin/Globulin [Mass ratio] 1.4 {ratio} Normal 1.1-2.5 [facility] ([place]) Comment on above: Performed By: #### A SKYLA, CMP, CBC, ADIFF, PSA, LIPID, TSHR, GFR #### [address] [address] #### B12 #### [address] [address] ALP [Catalytic activity/Vol] 67 U/L Normal 40-135 [facility] ([place]) Comment on above: Performed By: #### A SKYLA, CMP, CBC, ADIFF, PSA, LIPID, TSHR, GFR #### [address] [address] #### B12 #### [address] [address] ALT [Catalytic activity/Vol] 37 U/L Normal 16-63 [facility] ([place]) Comment on above: Performed By: #### A SKYLA, CMP, CBC, ADIFF, PSA, LIPID, TSHR, GFR #### [address] [address] #### B12 #### [address] [address] AST [Catalytic activity/Vol] 24 U/L Normal 10-40 [facility] ([place]) Comment on above: Performed By: #### A SKYLA, CMP, CBC, ADIFF, PSA, LIPID, TSHR, GFR #### [address] [address] #### B12 #### [address] [address] Bili Total 1.0 mg/dL Normal 0.2-1.0 [facility] ([place]) Comment on above: Result Comment: Use of this assay is not recommended for patients undergoing treatment with eltrombopag due to the potential for falsely elevated results. Performed By: #### A SKYLA, CMP, CBC, ADIFF, PSA, LIPID, TSHR, GFR #### [place] [address] #### B12 #### [address] [address] BUN/Creatinine Ratio 22 ratio Normal 7-27 [facility] ([place]) Comment on above: Performed By: #### A SKYLA, CMP, CBC, ADIFF, PSA, LIPID, TSHR, GFR #### [place] [address] #### B12 #### [address] [address] Calcium [Mass/Vol] 9.3 mg/dL Normal 8.4-10.2 [facility] ([place]) Comment on above: Performed By: #### A SKYLA, CMP, CBC, ADIFF, PSA, LIPID, TSHR, GFR #### [place] [address] #### B12 #### [address] [address] Chloride [Moles/Vol] 108 mmol/L High 98-107 [facility] ([place]) Comment on above: Performed By: #### A SKYLA, CMP, CBC, ADIFF, PSA, LIPID, TSHR, GFR #### [place] [address] #### B12 #### [address] [address] CO2 [Moles/Vol] 26 mmol/L Normal 23-31 [facility] ([place]) Comment on above: Performed By: #### A SKYLA, CMP, CBC, ADIFF, PSA, LIPID, TSHR, GFR #### [place] [address] #### B12 #### [address] [address] Creatinine [Mass/Vol] 1.05 mg/dL Normal 0.70-1.30 [facility] ([place]) Comment on above: Performed By: #### A SKYLA, CMP, CBC, ADIFF, PSA, LIPID, TSHR, GFR #### [address] [address] #### B12 #### [address] [address] Electrolyte Balance 11.0 mEq/L Normal 4.0-15.0 [facility] ([place]) Comment on above: Performed By: #### A SKYLA, CMP, CBC, ADIFF, PSA, LIPID, TSHR, GFR #### [address] [address] #### B12 #### [address] [address] Globulin 2.9 G/dL Normal [facility] ([place]) Comment on above: Performed By: #### A SKYLA, CMP, CBC, ADIFF, PSA, LIPID, TSHR, GFR #### [place] [address] #### B12 #### [address] [address] Glucose [Mass/Vol] 94 mg/dL Normal 80-115 [facility] ([place]) Comment on above: Performed By: #### A SKYLA, CMP, CBC, ADIFF, PSA, LIPID, TSHR, GFR #### [place] [address] #### B12 #### [address] [address] Potassium [Moles/Vol] 4.1 mmol/L Normal 3.5-5.1 [facility] ([place]) Comment on above: Performed By: #### A SKYLA, CMP, CBC, ADIFF, PSA, LIPID, TSHR, GFR #### [place] [address] #### B12 #### [address] [address] Sodium [Moles/Vol] 145 mmol/L Normal 136-145 [facility] ([place]) Comment on above: Performed By: #### A SKYLA, CMP, CBC, ADIFF, PSA, LIPID, TSHR, GFR #### [address] [address] #### B12 #### [address] [address] Total Protein 6.9 G/dL Normal 6.4-8.2 [facility] ([place]) Comment on above: Performed By: #### A SKYLA, CMP, CBC, ADIFF, PSA, LIPID, TSHR, GFR #### [address] [address] #### B12 #### [address] [address] Urea nitrogen [Mass/Vol] 23 mg/dL High 7-18 [facility] ([place]) Comment on above: Performed By: #### A SKYLA, CMP, CBC, ADIFF, PSA, LIPID, TSHR, GFR #### [address] [address] #### B12 #### [address] [address] LABORATORYOrdered By: Ghada Lima on 01-02-2024 Albumin DL <= 20 mg/L (U) [Mass/Vol] 2496 mcg/dL Invalid Interpretation Code AO ADM SS Albumin/Creatinine DL <= 20 mg/L (U) [Mass ratio] 14 mcg/mg Normal 0 - 30 mcg/mg AO ADM SS Creatinine (U) [Mass/Vol] 178.7 mg/dL Normal 39.0 - 259.0 mg/dL AO ADM SS Cholesterol [Mass/Vol] 206 mg/dL High 0 - 2 00 mg/dL AO ADM SS Comment on above: [...] (Bld) [#/Vol] 5.11 106/mcL Normal 4.04 - 6.13 10^6/mcL AO Workflow SS Sodium [Moles/Vol] 145 [...] 01-02-2024 Cholesterol [Mass/Vol] 206 mg/dL High 0-200 [facility] ([place]) Comment on above: Result Comment: Chol esterol Reference Interval: Less than 200 Desirable 200-239 Borderline high risk 240 and above High risk Performed By: #### A SKYLA, CMP, CBC, ADIFF, PSA, LIPID, TSHR, GFR #### [address] [address] #### B12 #### [address] [address] Cholesterol in HDL [Mass/Vol] 50 mg/dL Normal 40-60 [facility] ([place]) Comment on above: Performed By: #### A SKYLA, CMP, CBC, ADIFF, PSA, LIPID, TSHR, GFR #### [address] [address] #### B12 #### [address] [address] Cholesterol in LDL [Mass/Vol] 142 mg/dL High 0-130 [facility] ([place]) Comment on above: Performed By: #### A SKYLA, CMP, CBC, ADIFF, PSA, LIPID, TSHR, GFR #### [address] [address] #### B12 #### [address] [address] Triglyceride [Mass/Vol] 71 mg/dL Normal 0-150 [facility] ([place]) Comment on above: Result Comment: Trig lyceride Reference Interval: Less than 150 Normal 150-199 Borderline high risk 200-499 High risk 500 or higher Very high risk Performed By: #### A SKYLA, CMP, CBC, ADIFF, PSA, LIPID, TSHR, GFR #### [address] [address] #### B12 #### [address] [address] MALBRon 01-02-2024 U Creatinine 178.7 mg/dL Normal 39.0-259.0 [facility] ([place]) Comment on above: Performed By: #### M ALBR #### [address] [address] U Microalb 2496 mcg/dL Normal [facility] ([place]) Comment on above: Performed By: #### M ALBR #### [address] [address] U Ratio Alb/Cre 14 mcg/mg Normal 0-30 [facility] ([place]) Comment on above: Performed By: #### M ALBR #### [address] [address] PSAon 01-02-2024 Prostate Specific Antigen <0.05 Normal 0.00-4.00 [facility] ([place]) Comment on above: Performed By: #### A SKYLA, CMP, CBC, ADIFF, PSA, LIPID, TSHR, GFR #### [address] [address] #### B12 #### [place] [address] TSHRon 01-02-2024 TSH Qn 1.15 m[IU]/L Normal 0.36-3.74 [facility] ([place]) Comment on above: Performed By: #### A SKYLA, CMP, CBC, ADIFF, PSA, LIPID, TSHR, GFR #### [address] [address] #### B12 #### [place] [address] [place] MAMMOGRAM DIAGNOSTIC BILA TERAL W/TOMOon 07-18-2023 MA MAMMOGRAM DIAGNOSTIC BILATERAL W/JANNETH ORIGINAL FROM: [place] [address] PROCEDURE FOR: SRINATH PEPE [address] [place] [address] [place] [address] Home: PID#: [id number] Exam#: [id number] : 1960 Age: 62 TO: LENARD ASENCIO MD [address] [place] [address] Fax: NO FAX EXAMINATION: DIAGNOSTIC BILATERAL MAMMOGRAM [...] ASENCIO CLINICAL: BILATERAL PAIN/TENDERNESS NIPPLE AREA/ BASELINE. Lithopone Charger: DINAH REYES RT(R)(M) letter sent: Gynecomastia Mammogram BI-RADS: 2 Benign Normal [facility] ([place]) Basophil percentageOrdered B y: Sarkis Mcdonald on 05-21-2023 Chloride [Moles/Vol] 110 mmol/L 98-107 [facility] Glucose [Mass/Vol] 107 mg/dL 74-106 [facility] Comment on above: Fasting Glucose resu lt from 100 to 125 mg/dL suggests IMPAIRED HOMEOSTASIS per A.D.A. criteria. Potassium [Moles/Vol] 4.2 mmol/L 3.5-5.1 [facility] [place] [facility] Sodium [Moles/Vol] 141 mmol/L 136-145 [facility] WBC (Bld) [#/Vol] 3.4 10*3/uL 4.4-11.0 [facility] Blood erythrocytes count (nu mber/volume)Ordered By: Sarkis Mcdonald on 05-21-2023 RBC (Bld) [#/Vol] 4.87 10*6/uL 4.6-6.2 [facility] Blood hemoglobin measurement (mass/volume)Ordered By: Sarkis Mcdonald on 05-21-2023 Hemoglobin (Bld) [Mass/Vol] 14.0 g/dL 13.0-16.5 [facility] Blood platelet mean volumeOr dered By: Sarkis Mcdonald on 05-21-2023 Platelet mean volume (Bld) [Entitic vol] 11.3 fL 6.2-12.0 [facility] Determination of erythrocyte mean corpuscular volume (MCV)Ordered By: Sarkis Mcdonald on 05-21-2023 MCV (RBC) [Entitic vol] 86.0 fL 80-94 [facility] Hematocrit Auto (Bld) [Volum e fraction]Ordered By: Sarkis Mcdonald on 05-21-2023 Hematocrit (Bld) [Volume fraction] 41.9 % 40-54 [facility] Laboratory - Chemistry and C hemistry - challengeOrdered By: Sarkis Mcdonald on 05-21-2023 CO2 [Moles/Vol] 26.0 mmol/L 21.0-32.0 [facility] Urea nitrogen/Creatinine [Mass ratio] 25.5 mg/mg 10-20 [facility] Laboratory - Hematology and Cell countsOrdered By: Sarkis Mcdonald on 05-21-2023 Erythrocyte distribution width (RBC) [Entitic vol] 42.3 fL 35.1-43.9 [facility] Erythrocyte distribution width (RBC) [Ratio] 13.5 % 11.6-14.6 [facility] MCH (RBC) [Entitic mass] 28.7 pg 27.0-32.0 [facility] MCHC Auto (RBC) [Mass/Vol]Or dered By: Sarkis Mcdonald on 05-21-2023 MCHC (RBC) [Mass/Vol] 33.4 g/dL 32-36 [facility] [place] [facility] No Panel InformationOrdered By: Sarkis Mcdonald on 05-21-2023 Estimated GFR (MDRD) Amer 104 mL/min >60 [facility] Comment on above: GFR Calc Estimated GFR (MDRD) Non-Af Amer 86 mL/min >60 [facility] Comment on above: Non- GFR Calc Platelets bldOrdered By: Will Mcdonald on 05-21-2023 Platelets (Bld) [#/Vol] 102 10*3/uL 150-450 [facility] Serum or plasma calcium martha urement (mass/volume)Ordered By: Sarkis Harry on 05-21-2023 Calcium [Mass/Vol] 8.9 mg/dL 8.5-10.1 [facility] Serum or plasma creatinine m easurement (mass/volume)Ordered By: Sarkis Mcdonald on 05-21-2023 Creatinine [Mass/Vol] 0.94 mg/dL 0.70-1.30 [facility] [place] [facility] Comment on above: The validity of the calculated GFR & GFRAA in patients over 70 years has not been determined. Clinical correlation is essential. Serum or plasma urea nitroge n measurement (mass/volume)Ordered By: Sarkis Mcdonald on 05-21-2023 Urea nitrogen [Mass/Vol] 24 mg/dL - [facility] Thin prep Papanicolaou smear with manual screeningOrdered By: Sarkis Mcdonald on 05-21-2023 Thin prep Papanicolaou smear with manual screening 10-16 [facility] PSAon 03-05-2023 Prostate Specific Antigen <0.05 Normal 0.00-4.00 [facility] ([place]) Comment on above: Performed By: #### A SKYLA, CMP, CBC, ADIFF, PSA, LIPID, TSHR, GFR #### [place] [address] [place], [place] [address] #### B12 #### [address] [address] XR Knee AP and Lateral and M erchantson 02-28-2023 IMPRESSION: Unchanged LEFT total knee arthroplasty. Nickel Plater: KLEECHI Transcribe Date/Time: Feb 28 2023 9:29A Dictated by : JAY DUDLEY DO This examination was interpreted and the report reviewed and electronically signed by: JAY DUDLEY DO on Feb 28 2023 9:35AM [facility] * * *Final Report* * * [...] periprosthetic fracture. Similar soft tissue swelling anteriorly. [facility] * * *Final Report* * [...] IMPRESSION IMPRESSION: Unchanged LEFT total knee arthroplasty. Nickel Plater: PSCB Transcribe Date/Time: Feb 28 2023 9:29A Dictated by : JAY DUDLEY DO This examination was interpreted and the report reviewed and electronically signed by: JAY DUDLEY DO on Feb 28 2023 9:35AM EST [facility] XR Knee AP and Lateral and M erchantsOrdered By: Ccf Provider on 02-28-2023 [facility] CNCOon 02-27-2023 CNCO Letter Text Normal [facility] CNOVon 02-27-2023 CNOV Office Visit (ORMDNA ) SRINTAH PEPE ([id number]) 1960 M Date Time Provider Department 02/27/23 [...] - Rash Date Reviewed: 02/27/2023 Reviewed by: Grater, Mateo, HEMMING AND TACKING MACHINE OPERATOR.ROAD TRAIN DRIVER - Fully Assessed Reason for Visit: Established [...] Status:Closed by MATEO SAWANT on 02/27/23 Normal [facility] XR KNEE 3V AP/LAT/MERCHANT L Ton [...] anteriorly. IMPRESSION: Unchanged LEFT total knee arthroplasty. Nickel Plater: PSCB Transcribe Date/Time: Feb 28 2023 9:29A Dictated by : JAY DUDLEY DO This examination was interpreted and the report reviewed and electronically signed by: JAY DUDLEY DO on Feb 28 2023 9:35AM EST [id number] Normal [facility] XR Knee AP and Lateral and M erchantson 02-27-2023 Radiology Study observation (narrative) [facility] .GFRon 02-01-2023 GFR Non- 73 ml/min/1.73sqm Normal [facility] ([place]) Comment on above: Result Comment: GFR [...] CBC, ADIFF, PSA, LIPID, TSHR, GFR #### [address] [address] #### B12 #### [address] [address] GFR 88 ml/min/1.73sqm Normal [facility] ([place]) Comment on above: Result Comment: GFR Population [...] CBC, ADIFF, PSA, LIPID, TSHR, GFR #### [address] [address] #### B12 #### [address] [address] .Manual Diffon 02-01-2023 Bands 1.0 % Normal 0.0-5.0 [facility] ([place]) Comment on above: Performed By: #### A SKYLA, CMP, CBC, ADIFF, PSA, LIPID, TSHR, GFR #### [place] [address] #### B12 #### [address] [address] Basophil %, Manual 0.0 % Normal 0.0-2.5 [facility] ([place]) Comment on above: Performed By: #### A SKYLA, CMP, CBC, ADIFF, PSA, LIPID, TSHR, GFR #### [place] [address] #### B12 #### [address] [address] Basophil, Abs Manual 0.0 10 3/mcL Normal 0.0-0.2 [facility] ([place]) Comment on above: Performed By: #### A SKYLA, CMP, CBC, ADIFF, PSA, LIPID, TSHR, GFR #### [place] [address] #### B12 #### [address] [address] Eosinophil %, Manual 4.0 % Normal 0.0-7.0 [facility] ([place]) Comment on above: Performed By: #### A SKYLA, CMP, CBC, ADIFF, PSA, LIPID, TSHR, GFR #### [place] [address] #### B12 #### [address] [address] Eosinophil, Abs Manual 0.1 10 3/mcL Normal 0.0-0.4 [facility] ([place]) Comment on above: Performed By: #### A SKYLA, CMP, CBC, ADIFF, PSA, LIPID, TSHR, GFR #### [place] [address] #### B12 #### [address] [address] Lymphocyte %, Manual 22.0 % Normal 10.0-50.0 [facility] ([place]) Comment on above: Performed By: #### A SKYLA, CMP, CBC, ADIFF, PSA, LIPID, TSHR, GFR #### [place] [address] #### B12 #### [address] [address] Lymphocyte, Abs Manual 0.7 10 3/mcL Low 0.8-3.9 [facility] ([place]) Comment on above: Performed By: #### A SKYLA, CMP, CBC, ADIFF, PSA, LIPID, TSHR, GFR #### [place] [address] #### B12 #### [address] [address] Monocyte %, Manual 10.0 % Normal 1.7-13.0 [facility] ([place]) Comment on above: Performed By: #### A SKYLA, CMP, CBC, ADIFF, PSA, LIPID, TSHR, GFR #### [place] [address] #### B12 #### [address] [address] Monocyte, Abs Manual 0.3 10 3/mcL Normal 0.2-1.0 [facility] ([place]) Comment on above: Performed By: #### A SKYLA, CMP, CBC, ADIFF, PSA, LIPID, TSHR, GFR #### [place] [address] #### B12 #### [address] [address] Neutrophil %, Manual 63.0 % Normal 37.0-80.0 [facility] ([place]) Comment on above: Performed By: #### A SKYLA, CMP, CBC, ADIFF, PSA, LIPID, TSHR, GFR #### [place] [address] #### B12 #### [address] [address] Neutrophil, Abs Manual 1.9 10 3/mcL Low 2.9-6.2 [facility] ([place]) Comment on above: Performed By: #### A SKYLA, CMP, CBC, ADIFF, PSA, LIPID, TSHR, GFR #### [address] [address] #### B12 #### [place] [address] Nucleated RBC 0.0 /100 WBC [facility] ([place]) Comment on above: Performed By: #### A SKYLA, CMP, CBC, ADIFF, PSA, LIPID, TSHR, GFR #### [place] [address] #### B12 #### [place] [address] .Morphon 02-01-2023 Giant Platelets Few [facility] ([place]) Comment on above: Performed By: #### A SKYLA, CMP, CBC, ADIFF, PSA, LIPID, TSHR, GFR #### [place] [address] #### B12 #### [place] [address] Hyperseg 1+ Normal [facility] ([place]) Comment on above: Performed By: #### A SKYLA, CMP, CBC, ADIFF, PSA, LIPID, TSHR, GFR #### [place] [address] #### B12 #### [place] [address] Large Platelets Few [facility] ([place]) Comment on above: Performed By: #### A SKYLA, CMP, CBC, ADIFF, PSA, LIPID, TSHR, GFR #### [address] [address] #### B12 #### [place] [address] Platelet Estimate Decreased [facility] ([place]) Comment on above: Performed By: #### A SKYLA, CMP, CBC, ADIFF, PSA, LIPID, TSHR, GFR #### [place] [address] #### B12 #### [place] [address] CBCon 02-01-2023 Erythrocyte distribution width (RBC) [Ratio] 13.6 % Normal 11.5-14.5 [facility] ([place]) Comment on above: Order Comment: today and 1 year Performed By: #### A SKYLA, CMP, CBC, ADIFF, PSA, LIPID, TSHR, GFR #### [address] [address] #### B12 #### [address] [address] Hematocrit (Bld) [Volume fraction] 37.0 % Low 42.0-52.0 [facility] ([place]) Comment on above: Order Comment: today and 1 year Performed By: #### A SKYLA, CMP, CBC, ADIFF, PSA, LIPID, TSHR, GFR #### [address] [address] #### B12 #### [place] [address] Hgb 12.4 G/dL Low 14.0-18.0 [facility] ([place]) Comment on above: Order Comment: today and 1 year Performed By: #### A SKYLA, CMP, CBC, ADIFF, PSA, LIPID, TSHR, GFR #### [address] [address] #### B12 #### [address] [address] MCH (RBC) [Entitic mass] 28.6 pg Normal 27.0-31.2 [facility] ([place]) Comment on above: Order Comment: today and 1 year Performed By: #### A SKYLA, CMP, CBC, ADIFF, PSA, LIPID, TSHR, GFR #### [place] [address] #### B12 #### [place] [address] MCHC 33.5 G/dL Normal 31.8-35.4 [facility] ([place]) Comment on above: Order Comment: today and 1 year Performed By: #### A SKYLA, CMP, CBC, ADIFF, PSA, LIPID, TSHR, GFR #### [place] [address] #### B12 #### [place] [address] MCV (RBC) [Entitic vol] 85.4 fL Normal 80.0-94.0 [facility] ([place]) Comment on above: Order Comment: today and 1 year Performed By: #### A SKYLA, CMP, CBC, ADIFF, PSA, LIPID, TSHR, GFR #### [place] [address] #### B12 #### [place] [address] Platelet 87 10 3/mcL Low 130-400 [facility] ([place]) Comment on above: Order Comment: today and 1 year Performed By: #### A SKYLA, CMP, CBC, ADIFF, PSA, LIPID, TSHR, GFR #### [place] [address] #### B12 #### [place] [address] Platelet mean volume (Bld) [Entitic vol] 8.8 fL Normal 7.4-10.4 [facility] ([place]) Comment on above: Order Comment: today and 1 year Performed By: #### A SKYLA, CMP, CBC, ADIFF, PSA, LIPID, TSHR, GFR #### [place] [address] #### B12 #### [place] [address] RBC 4.33 10 6/mcL Normal 4.04-6.13 [facility] ([place]) Comment on above: Order Comment: today and 1 year Performed By: #### A SKYLA, CMP, CBC, ADIFF, PSA, LIPID, TSHR, GFR #### [place] [address] #### B12 #### [place] [address] WBC 3.0 10 3/mcL Low 4.6-10.8 [facility] ([place]) Comment on above: Order Comment: today and 1 year Performed By: #### A SKYLA, CMP, CBC, ADIFF, PSA, LIPID, TSHR, GFR #### [address] [address] #### B12 #### [address] [address] CMPon 02-01-2023 Albumin Level 3.9 G/dL Normal 3.4-4.8 [facility] ([place]) Comment on above: Order Comment: today and 1 year Performed By: #### A SKYLA, CMP, CBC, ADIFF, PSA, LIPID, TSHR, GFR #### [address] [address] #### B12 #### [address] [address] Albumin/Globulin [Mass ratio] 1.4 {ratio} Normal 1.1-2.5 [facility] ([place]) Comment on above: Order Comment: today and 1 year Performed By: #### A SKYLA, CMP, CBC, ADIFF, PSA, LIPID, TSHR, GFR #### [address] [address] #### B12 #### [address] [address] ALP [Catalytic activity/Vol] 69 U/L Normal 40-135 [facility] ([place]) Comment on above: Order Comment: today and 1 year Performed By: #### A SKYLA, CMP, CBC, ADIFF, PSA, LIPID, TSHR, GFR #### [address] [address] #### B12 #### [address] [address] ALT [Catalytic activity/Vol] 35 U/L Normal 16-63 [facility] ([place]) Comment on above: Order Comment: today and 1 year Performed By: #### A SKYLA, CMP, CBC, ADIFF, PSA, LIPID, TSHR, GFR #### [place] [address] #### B12 #### [address] [address] AST [Catalytic activity/Vol] 24 U/L Normal 10-40 [facility] ([place]) Comment on above: Order Comment: today and 1 year Performed By: #### A SKYLA, CMP, CBC, ADIFF, PSA, LIPID, TSHR, GFR #### [address] [address] #### B12 #### [address] [address] Bili Total 0.4 mg/dL Normal 0.2-1.0 [facility] ([place]) Comment on above: Order Comment: today and 1 year Result Comment: Use of this assay is not recommended for patients undergoing treatment with eltrombopag due to the potential for falsely elevated results. Performed By: #### A SKYLA, CMP, CBC, ADIFF, PSA, LIPID, TSHR, GFR #### [place] [address] #### B12 #### [place] [address] BUN/Creatinine Ratio 25 ratio Normal 7-27 [facility] ([place]) Comment on above: Order Comment: today and 1 year Performed By: #### A SKYLA, CMP, CBC, ADIFF, PSA, LIPID, TSHR, GFR #### [address] [address] #### B12 #### [address] [address] Calcium [Mass/Vol] 8.7 mg/dL Normal 8.4-10.2 [facility] ([place]) Comment on above: Order Comment: today and 1 year Performed By: #### A SKYLA, CMP, CBC, ADIFF, PSA, LIPID, TSHR, GFR #### [place] [address] #### B12 #### [address] [address] Chloride [Moles/Vol] 106 mmol/L Normal 98-107 [facility] ([place]) Comment on above: Order Comment: today and 1 year Performed By: #### A SKYLA, CMP, CBC, ADIFF, PSA, LIPID, TSHR, GFR #### [address] [address] #### B12 #### [address] [address] CO2 [Moles/Vol] 26 mmol/L Normal 23-31 [facility] ([place]) Comment on above: Order Comment: today and 1 year Performed By: #### A SKYLA, CMP, CBC, ADIFF, PSA, LIPID, TSHR, GFR #### [address] [address] #### B12 #### [address] [address] Creatinine [Mass/Vol] 1.03 mg/dL Normal 0.70-1.30 [facility] ([place]) Comment on above: Order Comment: today and 1 year Performed By: #### A SKYLA, CMP, CBC, ADIFF, PSA, LIPID, TSHR, GFR #### [address] [address] #### B12 #### [address] [address] Electrolyte Balance 8.0 mEq/L Normal 4.0-15.0 [facility] ([place]) Comment on above: Order Comment: today and 1 year Performed By: #### A SKYLA, CMP, CBC, ADIFF, PSA, LIPID, TSHR, GFR #### [address] [address] #### B12 #### [address] [address] Globulin 2.8 G/dL Normal [facility] ([place]) Comment on above: Order Comment: today and 1 year Performed By: #### A KSYLA, CMP, CBC, ADIFF, PSA, LIPID, TSHR, GFR #### [address] [address] #### B12 #### [address] [address] Glucose [Mass/Vol] 110 mg/dL Normal 80-115 [facility] ([place]) Comment on above: Order Comment: today and 1 year Performed By: #### A SKYLA, CMP, CBC, ADIFF, PSA, LIPID, TSHR, GFR #### [address] [address] #### B12 #### [address] [address] Potassium [Moles/Vol] 4.1 mmol/L Normal 3.5-5.1 [facility] ([place]) Comment on above: Order Comment: today and 1 year Performed By: #### A SKYLA, CMP, CBC, ADIFF, PSA, LIPID, TSHR, GFR #### [address] [address] #### B12 #### [address] [address] Sodium [Moles/Vol] 140 mmol/L Normal 136-145 [facility] ([place]) Comment on above: Order Comment: today and 1 year Performed By: #### A SKYLA, CMP, CBC, ADIFF, PSA, LIPID, TSHR, GFR #### [address] [address] #### B12 #### [address] [address] Total Protein 6.7 G/dL Normal 6.4-8.2 [facility] ([place]) Comment on above: Order Comment: today and 1 year Performed By: #### A SKYLA, CMP, CBC, ADIFF, PSA, LIPID, TSHR, GFR #### [address] [address] #### B12 #### [address] [address] Urea nitrogen [Mass/Vol] 26 mg/dL High 7-18 [facility] ([place]) Comment on above: Order Comment: today and 1 year Performed By: #### A SKYLA, CMP, CBC, ADIFF, PSA, LIPID, TSHR, GFR #### [address] [address] #### B12 #### [address] [address] Guillermo 02-01-2023 Ferritin [Mass/Vol] 192.0 ng/mL Normal 26.0-388.0 [facility] ([place]) Comment on above: Order Comment: today and 1 year Performed By: #### A SKYLA, CMP, CBC, ADIFF, PSA, LIPID, TSHR, GFR #### [address] [address] #### B12 #### [place] [address] FESon 02-01-2023 Iron [Mass/Vol] 44 ug/dL Low 65-175 [facility] ([place]) Comment on above: Order Comment: today and 1 year Performed By: #### A SKYLA, CMP, CBC, ADIFF, PSA, LIPID, TSHR, GFR #### [address] [address] #### B12 #### [place] [address] Iron Sat 17 % Normal [facility] ([place]) Comment on above: Order Comment: today and 1 year Performed By: #### A SKYLA, CMP, CBC, ADIFF, PSA, LIPID, TSHR, GFR #### [address] [address] #### B12 #### [place] [address] TIBC 256 mcg/dL Normal 250-450 [facility] ([place]) Comment on above: Order Comment: today and 1 year Performed By: #### A SKYLA, CMP, CBC, ADIFF, PSA, LIPID, TSHR, GFR #### [address] [address] #### B12 #### [place] [address] LABORATORYOrdered By: SYSTEM SYSTEM on 02-01-2023 Albumin [...] 2.9 - 6.2 10^3/mcL AO Workflow SS Neutrophils.hypersegme nted LM Ql (Bld) 1+ *NA* (02/01/23 4:12 [...] LDHon 02-01-2023 LDH 142 U/L Normal 85-227 [facility] ([place]) Comment on above: Order Comment: today and 1 year Performed By: #### A SKYLA, CMP, CBC, ADIFF, PSA, LIPID, TSHR, GFR #### [facility] [address] [place], [place] [address] #### B12 #### [address] [address] XR Knee AP and Lateral and M erchantson 01-09-2023 IMPRESSION: Postsurg ical changes without complication. Nickel Plater: PSCB Transcribe Date/Time: Jan 09 2023 5:05P Dictated by : GAB BARAHONA MD This examination was interpreted and the report reviewed and electronically signed by: GAB BARAHONA MD on Jan 09 2023 5:06PM EST [facility] * * *Final Report* * * DATE OF EXAM: Jan 09 2023 11:06AM O 5208 - XR KNEE 3V AP/LAT/MERCHANT LT [...] bony process is seen. Prepatellar edema noted. [facility] Provider, Nabor Vo - 01/09/2023 * * *Final Report* * * DATE OF EXAM: Jan 09 2023 11:06AM MDO 5208 - XR KNEE 3V AP/LAT/MERCHANT LT [...] noted. IMPRESSION IMPRESSION: Postsurgical changes without complication. Nickel Plater: [employer] Transcribe Date/Time: Jan 09 2023 5:05P Dictated by : GAB BARAHONA MD This examination was interpreted and the report reviewed and electronically signed by: GAB BARAHONA MD on Jan 09 2023 5:06PM EST [facility] Radiology Study observation (narrative) [facility] XR Knee AP and Lateral and M erchantsOrdered By: Ccf Provider on 01-09-2023 [facility] XR Knee - left AP and Latera damien 12-07-2022 IMPRESSION: Left total knee arthroplasty without complication. Nickel Plater: [employer] Transcribe Date/Time: Dec 07 2022 1:31P Dictated by : ENRIQUE SPARKS DO This examination was interpreted and the report reviewed and electronically signed by: ENRIQUE SPARKS DO on Dec 07 2022 1:34PM EST [facility] * * *Final Report* * * [...] tissue swelling. Resolved postoperative soft tissue gas. [facility] Provider, Nabor Vo - 12/07/2022 * [...] IMPRESSION: Left total knee arthroplasty without complication. Nickel Plater: [employer] Transcribe Date/Time: Dec 07 2022 1:31P Dictated by : ENRIQUE SPARKS DO This examination was interpreted and the report reviewed and electronically signed by: ENRIQUE SPARKS DO on Dec 07 2022 1:34PM EST [facility] Radiology Study observation (narrative) [facility] XR Knee - left AP and Latera lOrdered By: Ccf Provider on 12-07-2022 [facility] LABORATORYOrdered By: SYSTEM SYSTEM on 11-20-2022 AFP [...] (Bld)on 11-06-2022 Basophils (Bld) [#/Vol] <0.11 k/uL [facility] Basophils/100 WBC (Bld) 0.6 % [facility] Differential cell count method Nom (Bld) Auto [facility] Eosinophils (Bld) [#/Vol] 0.04 10*3/uL <0.46 k/uL [facility] Eosinophils/100 WBC (Bld) 1.3 % [facility] Erythrocyte distribution width (RBC) [Ratio] 13.5 % 11.5 - 15.0 % [facility] Hematocrit (Bld) [Volume fraction] 39.8 % 39.0 - 51.0 % [facility] Hemoglobin (Bld) [Mass/Vol] 13.5 g/dL 13.0 - 17.0 g/dL [facility] Immature granulocytes (Bld) [#/Vol] <0.10 k/uL [facility] Immature granulocytes/100 WBC (Bld) 0.3 % [facility] Lymphocytes (Bld) [#/Vol] 0.67 10*3/uL Low 1.00 - 4.00 k/uL [facility] Lymphocytes/100 WBC (Bld) 21.2 % [facility] MCH (RBC) [Entitic mass] 29.5 pg 26.0 - 34.0 pg [facility] MCHC (RBC) [Mass/Vol] 33.9 g/dL 30.5 - 36.0 g/dL [facility] MCV (RBC) [Entitic vol] 86.9 fL 80.0 - 100.0 fL [facility] Monocytes (Bld) [#/Vol] 0.34 10*3/uL <0.87 k/uL [facility] Monocytes/100 WBC (Bld) 10.8 % [facility] Neutrophils (Bld) [#/Vol] 2.08 10*3/uL 1.45 - 7.50 k/uL [facility] Neutrophils/100 WBC (Bld) 65.8 % [facility] Nucleated RBC (Bld) [#/Vol] <0.01 k/uL [facility] Nucleated RBC/100 WBC (Bld) [Ratio] 0.0 /100 WBC [facility] Platelet mean volume (Bld) [Entitic vol] 10.4 fL 9.0 - 12.7 fL [facility] Platelets (Bld) [#/Vol] 85 10*3/uL Low 150 - 400 k/uL [facility] RBC (Bld) [#/Vol] 4.58 10*6/uL 4.20 - 6.00 m/uL [facility] WBC (Bld) [#/Vol] 3.16 10*3/uL Low 3.70 - 11.00 k/uL [facility] Comprehensive metabolic 2000 panelon 11-06-2022 Albumin [Mass/Vol] 4.3 g/dL 3.9 - 4.9 g/dL [facility] ALP [Catalytic activity/Vol] 57 U/L 38 - 113 U/L [facility] ALT [Catalytic activity/Vol] 27 U/L 10 - 54 U/L [facility] Anion gap [Moles/Vol] 10 mmol/L 9 - 18 mmol/L [facility] AST [Catalytic activity/Vol] 27 U/L 14 - 40 U/L [facility] Bilirubin [Mass/Vol] 0.4 mg/dL 0.2 - 1 .3 mg/dL [facility] Calcium [Mass/Vol] 9.2 mg/dL 8.5 - 10. 2 mg/dL [facility] Chloride [Moles/Vol] 106 mmol/L High 97 - 10 5 mmol/L [facility] CO2 [Moles/Vol] 23 mmol/L 22 - 30 mmol/L [facility] Creatinine [Mass/Vol] 0.91 mg/dL 0.73 - 1.22 mg/dL [facility] Estimated Glomerular Filtration Rate 95 mL/min/1.73m >=60 mL/min/1.7 3m [facility] Glucose [Mass/Vol] 115 mg/dL High 74 - 99 mg/dL [facility] Potassium [Moles/Vol] 4.5 mmol/L 3.7 - 5.1 mmol/L [facility] Protein [Mass/Vol] 6.3 g/dL 6.3 - 8.0 g/dL [facility] Sodium [Moles/Vol] 139 mmol/L 136 - 144 mmol/L [facility] Urea nitrogen [Mass/Vol] 32 mg/dL High 9 - 24 mg/dL [facility] No Panel Informationon 10-02 [facility] LABORATORYOrdered By: SYSTEM SYSTEM on 06-09-2022 AFP [Mass/Vol] 4.0 ng/mL Invalid Interpretation Code 0.0 - 8.5 ng/mL ADM SS Albumin BCP dye [Mass/Vol] 4.0 G/dL Invalid Interpretation Code 3.2 - 4.8 G/dL AH ADM SS Albumin/Globulin [Mass ratio] 1.5 {ratio} [...] Invalid Interpretation Code 0.0 - 0.3 10^3/mcL Workflow SS Basophils/100 WBC (Bld) 0.5 % [...] Invalid Interpretation Code 0.0 - 0.7 10^3/mcL Workflow SS Eosinophils/100 WBC (Bld) 1.0 % Invalid Interpretation Code 0.0 - 6.0 % Workflow SS Erythrocyte distribution width (RBC) [Ratio] [...] [Mass fraction] 35 1 Invalid Interpretation Code [facility] SS LDH Lactate to pyruvate reaction [Catalytic activity/Vol] 147 1 Invalid Interpretation Code 120 - 246 U/L [facility] SS Lymphocytes (Bld) [#/Vol] 0.7 103/mcL Invalid [...] Invalid Interpretation Code 2.3 - 8.1 10^3/mcL Workflow SS Neutrophils/100 WBC (Bld) 73.9 % Invalid Interpretation Code 50.0 - 75.0 % Workflow SS Platelet mean volume (Bld) [Entitic vol] 9.1 fL Invalid Interpretation Code 6.4 - 10.5 fL Workflow SS Platelets (Bld) [#/Vol] 94 103/mcL [...] Invalid Interpretation Code 4.50 - 6.00 10^6/mcL Workflow SS Sodium [Moles/Vol] 139 mmol/L Invalid Interpretation Code 136 - 145 mEq/L AH ADM SS Urea nitrogen [Mass/Vol] 25.0 mg/dL Invalid Interpretation Code 8.0 - 22.0 mg/dL AH ADM SS Urea nitrogen/Creatinine [Mass ratio] 26.3 ratio Invalid Interpretation Code 10.0 - 22.0 ratio ADM SS WBC (Bld) [#/Vol] 4.0 103/mcL [...] Auto (Unsp spec) [#/Vol] 0.52 10*3/uL 0.83-4.51 [facility] Work Phone: Basophil percentageon 2021 Basophils/100 WBC (Bld) 0.3 % 0-1 [facility] Work Phone: Bilirubin [Mass/Vol] 0.50 mg/dL 0.20-1.00 [facility] Work Phone: Comment on above: For patients on eltr ombopag therapy, use of Dimension [place] TBIL is not recommended. Chloride [Moles/Vol] 108 mmol/L 98-107 [facility] Work Phone: Eosinophils/100 WBC (Bld) 1.0 % 0-5 [facility] Work Phone: Glucose [Mass/Vol] 103 mg/dL 74-106 [facility] Work Phone: Comment on above: Fasting Glucose resu lt from 100 to 125 mg/dL suggests IMPAIRED HOMEOSTASIS per A.D.A. criteria. Neutrophils (Bld) [#/Vol] 2.1 10*3/uL 2.0-7.7 [facility] Work Phone: [phone] Neutrophils/100 WBC (Bld) 71.6 % 47-70 [facility] Work Phone: Potassium [Moles/Vol] 3.9 mmol/L 3.5-5.1 [facility] Work Phone: Protein [Mass/Vol] 7.1 g/dL 6.4-8.2 [facility] Work Phone: Sodium [Moles/Vol] 141 mmol/L 136-145 [facility] Work Phone: WBC (Bld) [#/Vol] 3.0 10*3/uL 4.4-11.0 [facility] Work Phone: Blood erythrocytes count (nu mber/volume)on 12-28-2021 RBC (Bld) [#/Vol] 5.28 10*6/uL 4.6-6.2 [facility] Work Phone: Blood hemoglobin measurement (mass/volume)on 12-28-2021 Hemoglobin (Bld) [Mass/Vol] 15.4 g/dL 13.0-16.5 [facility] Work Phone: Blood lymphocytes/100 leukoc yteson 12-28-2021 Lymphocytes/100 WBC (Bld) 17.6 % 19-41 [facility] Work Phone: Blood manual differential co mment interpretation (narrative result)on 12-28-2021 Manual differential comment Jimbo (Bld) [Interp] SCANNED [facility] Work Phone: Blood monocytes/100 leukocyt eson 12-28-2021 Monocytes/100 WBC (Bld) 9.2 % 0-10 [facility] Work Phone: Blood platelet mean volumeon 12-28-2021 Platelet mean volume (Bld) [Entitic vol] 11.1 fL 6.2-12.0 [facility] Work Phone: C-REACTIVE PROTEIN (CRP)on 0 12-28-2021 CRP [Mass/Vol] mg/L <0.9 mg/dL [facility] Determination of erythrocyte mean corpuscular volume (MCV)on 12-28-2021 MCV (RBC) [Entitic vol] 87.1 fL 80-94 [facility] Work Phone: Hematocrit Auto (Bld) [Volum e fraction]on 12-28-2021 Hematocrit (Bld) [Volume fraction] 46.0 % 40-54 [facility] Work Phone: Laboratory - Chemistry and C hemistry - challengeon 12-28-2021 ALP [Catalytic activity/Vol] 68 U/L 45-117 [facility] Work Phone: ALT [Catalytic activity/Vol] 42 U/L 16-61 [facility] Work Phone: CO2 [Moles/Vol] 26.0 mmol/L 21.0-32.0 [facility] Work Phone: Globulin (S) [Mass/Vol] 3.2 g/dL 2.2-4.2 [facility] Work Phone: Urea nitrogen/Creatinine [Mass ratio] 20.7 mg/mg 10-20 [facility] Work Phone: Laboratory - Coagulationon 0 12-28-2021 aPTT Coag (Bld) [Time] 30.0 s 24.1-36.2 [facility] Work Phone: Laboratory - Hematology and Cell countson 12-28-2021 Erythrocyte distribution width (RBC) [Entitic vol] 44.2 fL 35.1-43.9 [facility] Work Phone: Erythrocyte distribution width (RBC) [Ratio] 13.7 % 11.6-14.6 [facility] Work Phone: Immature granulocytes/100 WBC (Bld) 0.300 % 0.0-0.9 [facility] Work Phone: Comment on above: IG% - Immature Granu locytes (promyelocytes, myelocytes and metamyelocytes) > 1% indicates that a LEFT SHIFT is Present. MCH (RBC) [Entitic mass] 29.2 pg 27.0-32.0 [facility] Work Phone: Nucleated RBC/100 WBC (Bld) [Ratio] 0 % 0-5 [facility] Work Phone: MCHC Auto (RBC) [Mass/Vol]on 12-28-2021 MCHC (RBC) [Mass/Vol] 33.5 g/dL 32-36 [facility] Work Phone: No Panel Informationon 12-28 Estimated GFR (MDRD) Amer 66 mL/min >60 [facility] Work Phone: Comment on above: GFR Calc Estimated GFR (MDRD) Non-Af Amer 55 mL/min >60 [facility] Work Phone: Comment on above: Non- GFR Calc Platelets bldon 12-28-2021 Platelets (Bld) [#/Vol] 72 10*3/uL 150-450 [facility] Work Phone: Review by pathologiston 12-03 Pathologist review Jimbo (Unsp spec) [Interp] Reviewed [facility] Work Phone: Comment on above: Previous reported re sult: Adwoa cardona Edited by: RGOMARY on 12/29/21:1322Leukopenia and Thrombocytopenia.Vipin Caruso M.D. 12/29/21 AMENDED REPORT 12/29/21 1322 PATH REV previously reported as: Adwoa dulce Serum or plasma albumin martha urement (mass/volume)on 12-28-2021 Albumin [Mass/Vol] 3.9 g/dL 3.2-5.0 [facility] Work Phone: Serum or plasma albumin/glob ulin mass ratioon 12-28-2021 Albumin/Globulin [Mass ratio] 1.2 {ratio} 0.9-2.4 [facility] Work Phone: Serum or plasma iimfn-1-bteq protein tumor marker measurement (units/volume)on 12-28-2021 AFP.tumor marker Qn 4.8 ng/mL 0.0-8.4 [facility] Work Phone: Comment on above: [facility] El ectrochemiluminescence Immunoassay(ECLIA)Values obtained with different assay methods or kits cannotbe used interchangeably. Results cannot be interpreted asabsolute evidence of the presence or absence of malignantdisease.This test is not interpretable in females.Performed at: [address] [id number] Director: Edilberto Cooley PhD, Phone: [phone] Serum or plasma calcium martha urement (mass/volume)on 12-28-2021 Calcium [Mass/Vol] 9.1 mg/dL 8.5-10.1 [facility] Work Phone: Serum or plasma creatinine m easurement (mass/volume)on 12-28-2021 Creatinine [Mass/Vol] 1.40 mg/dL 0.70-1.30 [facility] Work Phone: Comment on above: The validity of the calculated GFR & GFRAA in patients over 70 years has not been determined. Clinical correlation is essential. Serum or plasma urea nitroge n measurement (mass/volume)on 12-28-2021 Urea nitrogen [Mass/Vol] 29 mg/dL 7-18 [facility] Work Phone: Thin prep Papanicolaou smear with manual screeningon 12-28-2021 Thin prep Papanicolaou smear with manual screening 28 U/L 15-37 [facility] Work Phone: Thin prep Papanicolaou smear with manual screening 7 5-15 [facility] Work Phone: XR KNEE POST OP 3V AP/LAT/ME RCHANT LEFTon 12-28-2021 [facility] XR Knee - left 4 Viewson IMPRESSION: 1. Left knee arthroplasty in anatomic position with no acute fracture or progressive osteolysis 2. Increased knee joint effusion Nickel Plater: [facility] Transcribe Date/Time: Oct 25 2021 2:06P Dictated by : MANUEL STEWART MD This examination was interpreted and the report reviewed and electronically signed by: MANUEL STEWART MD on Oct 25 2021 2:08PM EST ANGELY_DO_NOT_ USE_DIVISIO N OF RADIOLOGY * * *Final [...] normal position. There is a joint effusion. ANGELY_DO_NOT_ USE_DIVISIO N OF RADIOLOGY Provider, [facility] - 10/25/2021 * * *Final Report* * [...] progressive osteolysis 2. Increased knee joint effusion Nickel Plater: [facility] Transcribe Date/Time: Oct 25 2021 2:06P Dictated by : MANUEL STEWART MD This examination was interpreted and the report reviewed and electronically signed by: MANUEL STEWART MD on Oct 25 2021 2:08PM EST [facility] Radiology Study observation (narrative) [facility] XR Knee - left 4 ViewsOrdere d By: Nabor Provider on 10-25-2021 [facility] LABORATORYOrdered By: Dragan Ye on 09-30-2021 Albumin [...] Non-Reactive (09/30/21 9:28 AM) Invalid Interpretation Code Non-Reacti ve AH ADM SS Hep C Ab Int Nonreactive: Samples with a value < 0.80 are considered nonreactive (negative) for antibodies to HCV.A negative test result does not exclude the possibility of exposure to or infection with HCV. HCV antibodies may be undetectable in some stages of the infection and in some clinical conditions. Invalid Interpretation Code Chemistry S LABORATORYOrdered By: Ghada Lima on 09-12-2021 Prostate specific Ag [Mass/Vol] ng/mL Invalid Interpretation Code 0.00 - 4.00 ng/mL AO ADM SS LABORATORYOrdered By: SYSTEM SYSTEM on 06-20-2021 Albumin BCP dye [Mass/Vol] [...] - 3.8 G/dL ADM SS Glucose [Mass/Vol] 86 mg/dL Invalid Interpretation Code 82 - 115 mg/dL ADM SS Hematocrit (Bld) [Volume fraction] 43.4 % Invalid Interpretation Code 40.0 - 52.0 % Remisol SS Hemoglobin (Bld) [Mass/Vol] 14.7 G/dL Invalid Interpretation Code 13.0 - 17.5 G/dL Remisol SS Iron [Mass/Vol] 101 ug/dL Invalid Interpretation Code 65 - 175 mcg/dL ADM SS Iron binding capacity [Mass/Vol] 321 mcg/dL Invalid Interpretation Code 250 - 500 mcg/dL ADM SS Iron saturation [Mass fraction] 31 1 Invalid Interpretation Code ADM SS LDH Lactate to pyruvate reaction [Catalytic activity/Vol] 179 1 Invalid Interpretation Code 120 - 246 U/L ADM SS Lymphocytes (Bld) [#/Vol] 0.80 103/mcL Invalid Interpretation Code 0.90 - 4.32 10^3/mcL AH Remisol SS Lymphocytes/100 WBC (Bld) 19.2 % Invalid Interpretation Code 20.0 - 40.0 % Remisol SS MCH (RBC) [Entitic mass] 29.0 [...] TO INTENSIVE CARE UNIT FOR CONDITION OF INTEREST:FIND:PT:^BROCK ENT:ORD: No (05/13/21 12:22 PM) Invalid Interpretation Code AO Auto Urine SS EMPLOYED IN A HEALTHCARE SETTING:FIND:PT:^PATIE NT:ORD: No (05/13/21 12:22 PM) Invalid Interpretation Code AO Auto Urine SS FIRST TEST FOR CONDITION OF INTEREST:FIND:PT:^BROCK ENT:ORD: Unknown (05/13/21 12:22 PM) Invalid Interpretation Code AO Auto Urine SS HAS SYMPTOMS RELATED TO CONDITION OF INTEREST:FIND:PT:^BROCK ENT:ORD: Unknown (05/13/21 12:22 PM) Invalid Interpretation Code AO Auto Urine SS Illness or injury onset date and time [id number] Invalid Interpretation Code AO Auto Urine SS Patient was hospitalized because of this condition No (05/13/21 12:22 PM) Invalid Interpretation Code AO Auto Urine SS status Not (05/13/21 12:22 PM) Invalid Interpretation Code AO Auto Urine SS RESIDES IN A CONGREGATE CARE SETTING:FIND:PT:^PATIE NT:ORD: Unknown (05/13/21 12:22 PM) Invalid Interpretation Code AO Auto Urine SS SARS-CoV-2 (COVID-19) RNA YUE+probe Ql (Resp) Negative (05/13/21 12:22 PM) Invalid Interpretation Code Negative AO Auto Urine SS SARS-CoV-2 (COVID-19) RNA YUE+probe Ql (Unsp spec) Negative results do not [...] Invalid Interpretation Code 0.00 - 0.27 10^3/mcL Remisol SS Basophils/100 WBC (Bld) 0.6 % [...] rate/Area] ml/min/1.73sqm Invalid Interpretation Code Chemistry S Glucose [Mass/Vol] 105 mg/dL Invalid [...] 4.50 - 10.80 10^3/mcL AH Remisol SS HISTORY PHYSICALon 9 HISTORY PHYSICAL HNO ID: [id number] Author: Ria Lo (Pac) SOHAM Franklin Service: (none) Author Type: Physician Collection Clerk Type: HANDP Filed: 07/09/2018 11:51 AM Note [...] alcoholic cirrhosis of liver without ascites/EGD SIGNATURE: Ria Franklin PA-C PATIENT NAME: Srinath Pepe DATE: July 09, 2018 TIME: 11:50 AM PAGER: [phone] [facility] PT EDon 07-09-2018 PT ED HNO ID: [id number] Author: Loulou FloresRnWang Sosa RN Service: (none) Author Type: Registered [...] None REFERRAL (RECOMMENDATION): None Loulou Sosa RN [facility] PT ED HNO ID: [id number] Author: Dionna Marti RN Service: Nursing Author Type: Registered Nurse Type: [...] Dionna Marti RN In Department: PROCEDURES Normal [facility] SURGICAL PATHOLOGYon 019 SURGICAL PATHOLOGY Specimen originated from [facility] Specimen #: [id number] Submitting Physician: DEBRA MCCRACKEN M.D. FINAL DIAGNOSIS 1. Stomach, antral polyps, biopsy (A) - Gastric antral-type mucosa with no pathologic diagnostic abnormality; see comment. 2. Stomach, random biopsies (B) - Gastric antral-type mucosa with focal intestinal metaplasia; negative for dysplasia; see comment. SS/srkristen 07/10/2018 COMMENT 1,2. No microorganisms morphologically compatible [...] in one cassette. Gross examination performed at [facility], [address] [place] [address] VY 07/09/2018 4:37:14 PM Date of Report: 07/10/2018 Date of Procedure: 07/09/2018 Date of Receipt: 07/09/2018 Submitted by: DEBRA MCCRACKEN M.D. Location: [facility] Diagnostic interpretation performed at [place] [address]. Normal [facility] SURGICAL PATHOLOGY Specimen originated from [facility] Specimen #: [id number] Submitting Physician: DEBRA MCCRACEKN M.D. FINAL DIAGNOSIS 1. Stomach, antral polyps, biopsy (A) - Gastric antral-type mucosa with no pathologic diagnostic abnormality; see comment. 2. Stomach, random biopsies (B) - Gastric antral-type mucosa with focal intestinal metaplasia; negative for dysplasia; see comment. SS/srkristen 07/10/2018 COMMENT 1,2. No microorganisms morphologically compatible [...] in one cassette. Gross examination performed at [facility], [address] [place] [address] VY 07/09/2018 4:37:14 PM Date of Report: 07/10/2018 Date of Procedure: 07/09/2018 Date of Receipt: 07/09/2018 Submitted by: DEBRA MCCRACKEN M.D. Location: [facility] Diagnostic interpretation performed at [place] [address]. Normal [facility] Comment on above: Performed By: [...] started a new job. 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 Kevon Mackey DO Work Phone: [facility] 03-12-2025 07:48-0400 Body mass index (BMI) [Ratio] 30.2 kg/m2 Dr. Kevon Mackey DO Work Phone: [facility] 03-12-2025 07:48-0400 Body temperature 98.2 [degF] Dr. Kevon Mackey DO Work Phone: [facility] 03-12-2025 07:48-0400 Body weight 112.[address] Kevon Mackey DO Work Phone: [facility] 03-12-2025 07:48-0400 Diastolic blood pressure 82 mm[Hg] Dr. Kevon Mackey DO Work Phone: [facility] 03-12-2025 07:48-0400 Heart rate 68 /min Dr. Kevon Mackey DO Work Phone: [facility] 03-12-2025 07:48-0400 Respiratory rate 16 /min Dr. Kevon Mackey DO Work Phone: [facility] 03-12-2025 07:48-0400 SaO2% (BldA) [Mass fraction] 95 % Dr. Kevon Mackey DO Work Phone: [facility] 03-12-2025 07:48-0400 Systolic blood pressure 132 mm[Hg] Dr. Kevon Mackey DO Work Phone: [facility] 03-02-2025 10:36-0400 Body height 193.[address] Kevon Mackey DO Work Phone: [facility] 03-02-2025 10:36-0400 Body weight 112.[address] Kevon Mackey DO Work Phone: [facility] 02-27-2025 11:08-0400 Body mass index (BMI) [Ratio] 30.2 kg/m2 Dr. Kevon Mackey DO Work Phone: [facility] 02-25-2025 07:48-0400 Body mass index (BMI) [Ratio] 30 kg/m2 Dr. Kevon Mackey DO Work Phone: [facility] 02-25-2025 07:48-0400 Body weight 112.[address] Kevon Mackey DO Work Phone: [facility] 02-25-2025 07:48-0400 Diastolic blood pressure 82 mm[Hg] Dr. Kevon Mackey DO Work Phone: [facility] 02-25-2025 07:48-0400 Heart rate 71 /min Dr. Kevon Mackey DO Work Phone: [facility] 02-25-2025 07:48-0400 Respiratory rate 18 /min Dr. Kevon Mackey DO Work Phone: [facility] 02-25-2025 07:48-0400 SaO2% (BldA) [Mass fraction] 97 % Dr. Kevon Mackey DO Work Phone: [facility] 02-25-2025 07:48-0400 Systolic blood pressure 121 mm[Hg] Dr. Kevon Mackey DO Work Phone: [facility] 02-10-2025 10:28-0400 Body height 193.[address] Kevon Mackey DO Work Phone: [facility] 02-10-2025 10:28-0400 Body mass index (BMI) [Ratio] 30 kg/m2 Dr. Kevon Mackey DO Work Phone: [facility] 02-10-2025 10:28-0400 Body weight 112.[address] Kevon Mackey DO Work Phone: [facility] 02-10-2025 10:28-0400 Diastolic blood pressure 60 mm[Hg] Dr. Kevon Mackey DO Work Phone: [facility] 02-10-2025 10:28-0400 Heart rate 60 /min Dr. Kevon Mackey DO Work Phone: [facility] 02-10-2025 10:28-0400 Respiratory rate 16 /min Dr. Kevon Mackey DO Work Phone: [facility] 02-10-2025 10:28-0400 Systolic blood pressure 120 mm[Hg] Dr. Kevon Mackey DO Work Phone: [facility] 01-29-2025 13:10-0400 Body height 193.[address] Kevon Mackey DO Work Phone: [facility] 01-29-2025 13:10-0400 Body mass index (BMI) [Ratio] 30.2 kg/m2 Dr. Kevon Mackey DO Work Phone: [facility] 01-29-2025 13:10-0400 Body temperature 98.2 [degF] Dr. Kevon Mackey DO Work Phone: [facility] 01-29-2025 13:10-0400 Body weight 112.[address] Kevon Mackey DO Work Phone: [facility] 01-29-2025 13:10-0400 Diastolic blood pressure 80 mm[Hg] Dr. Kevon Mackey DO Work Phone: [facility] 01-29-2025 13:10-0400 Heart rate 64 /min Dr. Kevon Mackey DO Work Phone: [facility] 01-29-2025 13:10-0400 Respiratory rate 16 /min Dr. Kevon Mackey DO Work Phone: [facility] 01-29-2025 13:10-0400 SaO2% (BldA) [Mass fraction] 97 % Dr. Kevon Mackey DO Work Phone: [facility] 01-29-2025 13:10-0400 Systolic blood pressure 133 mm[Hg] Dr. Kevon Mackey DO Work Phone: [facility] 01-28-2025 07:25-0400 Body mass index (BMI) [Ratio] 30.2 kg/m2 Dr. Kevon Mackey DO Work Phone: [facility] 01-28-2025 07:25-0400 Body weight 112.[address] Kevon Mackey DO Work Phone: [facility] 01-28-2025 07:25-0400 Diastolic blood pressure 86 mm[Hg] Dr. Kevon Mackey DO Work Phone: [facility] 01-28-2025 07:25-0400 Heart rate 70 /min Dr. Kevon Mackey DO Work Phone: [facility] 01-28-2025 07:25-0400 Respiratory rate 18 /min Dr. Kevon Mackey DO Work Phone: [facility] 01-28-2025 07:25-0400 SaO2% (BldA) [Mass fraction] 95 % Dr. Kevon Mackey DO Work Phone: [facility] 01-28-2025 07:25-0400 Systolic blood pressure 135 mm[Hg] Dr. Kevon Mackey DO Work Phone: [facility] 11-17-2024 07:45-0400 Body temperature 97.6 [degF] Dr. Kevon Mackey DO Work Phone: [facility] 11-17-2024 07:45-0400 Diastolic blood pressure 86 mm[Hg] Dr. Kevon Mackey DO Work Phone: [facility] 11-17-2024 07:45-0400 Heart rate 57 /min Dr. Kevon Mackey DO Work Phone: [facility] 11-17-2024 07:45-0400 Respiratory rate 16 /min Dr. Kevon Mackey DO Work Phone: [facility] 11-17-2024 07:45-0400 SaO2% (BldA) [Mass fraction] 95 % Dr. Kevon Mackey DO Work Phone: [facility] 11-17-2024 07:45-0400 Systolic blood pressure 118 mm[Hg] Dr. Kevon Mackey DO Work Phone: [facility] 11-17-2024 06:30-0400 Body height 193.[address] Kevon Mackey DO Work Phone: [facility] 11-17-2024 06:30-0400 Body mass index (BMI) [Ratio] 29.2 kg/m2 Dr. Kevon Mackey DO Work Phone: [facility] 11-17-2024 06:30-0400 Body weight [address] Kevon Mackey DO Work Phone: [facility] 10-16-2024 12:11-0400 Body height 193.[address] Kevon Mackey DO Work Phone: [facility] 10-16-2024 12:11-0400 Body mass index (BMI) [Ratio] 29.5 kg/m2 Dr. Kevon Mackey DO Work Phone: [facility] 10-16-2024 12:11-0400 Body weight 110.[address] Kevon Mackey DO Work Phone: [facility] 10-16-2024 12:11-0400 Diastolic blood pressure 88 mm[Hg] Dr. Kevon Mackey DO Work Phone: [facility] 10-16-2024 12:11-0400 Heart rate 51 /min Dr. Kevon Mackey DO Work Phone: [facility] 10-16-2024 12:11-0400 Respiratory rate 14 /min Dr. Kevon Mackey DO Work Phone: [facility] 10-16-2024 12:11-0400 Systolic blood pressure 159 mm[Hg] Dr. Kevon Mackey DO Work Phone: [facility] 09-10-2024 08:19-0400 Body height 193.[address] Kevon Mackey DO Work Phone: [facility] 09-10-2024 08:19-0400 Body mass index (BMI) [Ratio] 30.5 kg/m2 Dr. Kevon Mackey DO Work Phone: [facility] 09-10-2024 08:19-0400 Body weight 113.[address] Kevon Mackey DO Work Phone: [facility] 09-10-2024 08:19-0400 Diastolic blood pressure 75 mm[Hg] Dr. Kevon Mackey DO Work Phone: [facility] 09-10-2024 08:19-0400 Heart rate 64 /min Dr. Kevon Mackey DO Work Phone: [facility] 09-10-2024 08:19-0400 Respiratory rate 16 /min Dr. Kevon Mackey DO Work Phone: [facility] 09-10-2024 08:19-0400 SaO2% (BldA) [Mass fraction] 94 % Dr. Kevon Mackey DO Work Phone: [facility] 09-10-2024 08:19-0400 Systolic blood pressure 113 mm[Hg] Dr. Kevon Mackey DO Work Phone: [facility] 07-22-2024 13:00-0500 Body temperature 97 [degF] Dr. Kevon Mackey DO Work Phone: [facility] 07-22-2024 13:00-0500 Diastolic blood pressure 90 mm[Hg] Dr. Kevon Mackey DO Work Phone: [facility] 07-22-2024 13:00-0500 Heart rate 59 /min Dr. Kevon Mackey DO Work Phone: [facility] 07-22-2024 13:00-0500 Respiratory rate 16 /min Dr. Kevon Mackey DO Work Phone: [facility] 07-22-2024 13:00-0500 SaO2% (BldA) [Mass fraction] 97 % Dr. Kevon Mackey DO Work Phone: [facility] 07-22-2024 13:00-0500 Systolic blood pressure 134 mm[Hg] Dr. Kevon Mackey DO Work Phone: [facility] 07-22-2024 11:05-0500 Body height 193.[address] Kevon Mackey DO Work Phone: [facility] 07-22-2024 11:05-0500 Body mass index (BMI) [Ratio] 29.7 kg/m2 Dr. Kevon Mackey DO Work Phone: [facility] 07-22-2024 11:05-0500 Body weight 110.[address] Kevon Mackey DO Work Phone: [facility] 07-18-2024 13:34-0500 Body mass index (BMI) [Ratio] 29.9 kg/m2 Dr. Kevon Mackey DO Work Phone: [facility] 07-18-2024 13:34-0500 Body weight 111.[address] Kevon Mackey DO Work Phone: [facility] 07-18-2024 13:34-0500 Diastolic blood pressure 98 mm[Hg] Dr. Kevon Mackey DO Work Phone: [facility] 07-18-2024 13:34-0500 Heart rate 79 /min Dr. Kevon Mackey DO Work Phone: [facility] 07-18-2024 13:34-0500 Respiratory rate 16 /min Dr. Kevon Mackey DO Work Phone: [facility] 07-18-2024 13:34-0500 Systolic blood pressure 182 mm[Hg] Dr. Kevon Mackey DO Work Phone: [facility] 05-13-2024 08:36-0500 Body mass index (BMI) [Ratio] 29.7 kg/m2 Dr. Kevon Mackey DO Work Phone: [facility] 05-13-2024 08:36-0500 Body weight 110.[address] Kevon Mackey DO Work Phone: [facility] 05-13-2024 08:36-0500 Diastolic blood pressure 86 mm[Hg] Dr. Kevon Mackey DO Work Phone: [facility] 05-13-2024 08:36-0500 Heart rate 60 /min Dr. Kevon Mackey DO Work Phone: [facility] 05-13-2024 08:36-0500 SaO2% (BldA) [Mass fraction] 95 % Dr. Kevon Mackey DO Work Phone: [facility] 05-13-2024 08:36-0500 Systolic blood pressure 145 mm[Hg] Dr. Kevon Mackey DO Work Phone: [facility] 11-06-2022 08:43-0400 Body height 193 cm Pacc 1 Work Phone: [facility] 11-06-2022 08:43-0400 Body temperature 97.59 [degF] Pacc 1 Work Phone: [facility] 11-06-2022 08:43-0400 Body weight 107.05 kg Pacc 1 Work Phone: [facility] 11-06-2022 08:43-0400 Diastolic blood pressure 76 mm[Hg] Pacc 1 Work Phone: [facility] 11-06-2022 08:43-0400 Heart rate 64 /min Pacc 1 Work Phone: [facility] 11-06-2022 08:43-0400 Respiratory rate 14 /min Pacc 1 Work Phone: [facility] 11-06-2022 08:43-0400 SaO2% (BldA) [Mass fraction] 97 % Pacc 1 Work Phone: [facility] 11-06-2022 08:43-0400 Systolic blood pressure 124 mm[Hg] Pacc 1 Work Phone: [facility] 10-02-2022 13:12-0400 Body height 193 cm Ge Maguire MD, PhD Work Phone: [facility] 10-02-2022 13:12-0400 Body weight 111.13 kg Ge Maguire MD, PhD Work Phone: [facility] 02-24-2022 10:05-0400 Diastolic Blood Pressure NBP [address] EDILBERTO FRYE MD [facility] 02-24-2022 10:05-0400 Heart rate 58 /min DR EDILBERTO FRYE MD [facility] 02-24-2022 10:05-0400 Respiratory rate 14 /min DR EDILBERTO FRYE MD [facility] 02-24-2022 10:05-0400 Systolic Blood Pressure NBP [address] EDILBERTO FRYE MD [facility] 02-24-2022 09:55-0400 Diastolic Blood Pressure NBP [address] EDILBERTO RFYE MD [facility] 02-24-2022 09:55-0400 Heart rate 59 /min DR EDILBERTO FRYE MD [facility] 02-24-2022 09:55-0400 Respiratory rate 14 /min DR EDILBERTO FRYE MD [facility] 02-24-2022 09:55-0400 Systolic Blood Pressure NBP [address] EDILBERTO FRYE MD [facility] 02-24-2022 09:47-0400 Diastolic Blood Pressure NBP [address] EDILBERTO FRYE MD [facility] 02-24-2022 09:47-0400 Heart rate 66 /min DR EDILBERTO FRYE MD [facility] 02-24-2022 09:47-0400 Respiratory rate 12 /min DR EDILBERTO FRYE MD [facility] 02-24-2022 09:47-0400 Systolic Blood Pressure NBP [address] EDILBERTO FRYE MD [facility] 02-24-2022 08:15-0400 Body height [address] EDILBERTO FRYE MD [facility] 02-24-2022 08:15-0400 Body temperature 96.8 [degF] DR EDILBERTO FRYE MD [facility] 02-24-2022 08:15-0400 Body weight 109.[address] EDILBERTO FRYE MD [facility] 02-24-2022 08:15-0400 Body weight 29.29 kg/m2 DR EDILBERTO FRYE MD [facility] 02-24-2022 08:15-0400 diastolic 103 mm[Hg] DR EDILBERTO FRYE MD [facility] 02-24-2022 08:15-0400 Heart rate 59 /min DR EDILBERTO FRYE MD [facility] 02-24-2022 08:15-0400 systolic 183 mm[Hg] DR EDILBERTO FRYE MD [facility] 12-28-2021 14:39-0400 Body height 193 cm Ge Maguire MD Work Phone: [facility] 12-28-2021 14:39-0400 Body weight 111.13 kg Ge Maguire MD Work Phone: [facility] 11-07-2021 13:56-0400 Body temperature 97.7 [degF] CURT COSME MD [facility] 11-07-2021 13:56-0400 Diastolic blood pressure 92 mm[Hg] CURT COSME MD [facility] 11-07-2021 13:56-0400 Heart rate 92 /min CURT COSME MD [facility] 11-07-2021 13:56-0400 Respiratory rate 18 /min CURT COSME MD [facility] 11-07-2021 13:56-0400 Systolic blood pressure 127 mm[Hg] CURT COSME MD [facility] 11-01-2021 15:26-0400 Body height 193 cm Suzetet Paul PA-C Work Phone: [facility] 11-01-2021 15:26-0400 Body weight 111.13 kg Suzette Humberto PA-C Work Phone: [facility] 10-26-2021 07:41-0400 Body height 193.[address] Mark Smith Work Phone: [facility] Work Phone: 10-26-2021 07:41-0400 Body mass index (BMI) [Ratio] 30.9 kg/m2 Dr. Mark Smith Work Phone: [facility] Work Phone: 10-26-2021 07:41-0400 Body temperature 97.7 [degF] Dr. Mark Smith Work Phone: [facility] Work Phone: 10-26-2021 07:41-0400 Body weight 115.[address] Mark Smith Work Phone: [facility] Work Phone: 10-26-2021 07:41-0400 Diastolic blood pressure 91 mm[Hg] Dr. Mark Smith Work Phone: [facility] Work Phone: 10-26-2021 07:41-0400 Heart rate 74 /min Dr. Mark Smith Work Phone: [facility] Work Phone: 10-26-2021 07:41-0400 Respiratory rate 16 /min Dr. Mark Smith Work Phone: [facility] Work Phone: 10-26-2021 07:41-0400 SaO2% (BldA) [Mass fraction] 94 % Dr. Mark Smith Work Phone: [facility] Work Phone: 10-26-2021 07:41-0400 Systolic blood pressure 152 mm[Hg] Dr. Mark Smith Work Phone: [facility] Work Phone: 10-25-2021 10:01-0400 Body height 193 cm Ge Maguire MD Work Phone: [facility] 10-25-2021 10:01-0400 Body weight 111.13 kg Ge Maguire MD Work Phone: [facility] 10-24-2021 22:55-0400 Diastolic blood pressure 95 mm[Hg] DR PARKER FERGUSON MD [facility] 10-24-2021 22:55-0400 Heart rate 57 /min DR PARKER FERGUSON MD [facility] 10-24-2021 22:55-0400 Reason For Taking VItal Signs DR PARKER FERGUSON MD [facility] 10-24-2021 22:55-0400 Respiratory rate 16 /min DR PARKER FERGUSON MD [facility] 10-24-2021 22:55-0400 Systolic blood pressure 149 mm[Hg] DR PARKER FERGUSON MD [facility] 10-24-2021 20:45-0400 Body temperature 98.24 [degF] DR PARKER FERGUSON MD [facility] 10-24-2021 20:45-0400 Diastolic blood pressure 89 mm[Hg] DR PARKER FERGUSON MD [facility] 10-24-2021 20:45-0400 Heart rate 78 /min DR PARKER FERGUSON MD [facility] 10-24-2021 20:45-0400 Respiratory rate 18 /min DR PARKER FERGUSON MD [facility] 10-24-2021 20:45-0400 Systolic blood pressure 155 mm[Hg] DR PARKER FERGUSON MD [facility] 05-06-2021 14:41-0500 Body temperature 98.06 [degF] LISA SHANNON MD [facility] 05-06-2021 14:41-0500 Body weight 109.1 kg LISA SHANNON MD [facility] 05-06-2021 14:41-0500 Diastolic blood pressure 98 mm[Hg] LISA SHANNON MD [facility] 05-06-2021 14:41-0500 Heart rate 77 /min LISA SHANNON MD [facility] 05-06-2021 14:41-0500 Respiratory rate 20 /min LISA SHANNON MD [facility] 05-06-2021 14:41-0500 Systolic blood pressure 134 mm[Hg] LISA SHANNON MD [facility] 04-21-2021 08:20-0500 Diastolic blood pressure 85 mm[Hg] ANA VILLA MD [facility] 04-21-2021 08:20-0500 Systolic blood pressure 155 mm[Hg] ANA VILLA MD [facility] 04-21-2021 07:37-0500 Body height 191 cm ANA VILLA MD [facility] 04-21-2021 07:37-0500 Body temperature 98.06 [degF] ANA VILLA MD [facility] 04-21-2021 07:37-0500 Body weight 113.3 kg ANA VILLA MD [facility] 04-21-2021 07:37-0500 diastolic 92 mm[Hg] ANA VILLA MD [facility] 04-21-2021 07:37-0500 Heart rate 61 /min ANA VILLA MD [facility] 04-21-2021 07:37-0500 systolic 163 mm[Hg] ANA VILLA MD [facility] Encounters Encounter Date Encounter Type Care Provider Facility Start: 04-08-2025 End: 04-08-2025 ambulatory Kevon Mackey Facility:[facility] Start: 04-05-2025 ambulatory Kevon Mackey Facility: [facility] Start: 04-02-2025 ambulatory Kevon Mackey Facility: [facility] Start: 03-30-2025 End: 03-30-2025 ambulatory Kevon Mackey Facility:[facility] Start: 03-20-2025 End: 03-20-2025 ambulatory KEVON MACKEY DO Facility:[facility] Start: 03-20-2025 End: 03-20-2025 Patient encounter procedure ANA VILLA MD [facility] Start: 03-12-2025 End: 03-12-[address] Ge Franz MD -[facility] Work Phone: Start: 03-12-2025 End: 03-12-[address] Kevon Mackey DO Work Phone: -[facility] Start: 03-09-2025 End: 03-09-2025 Patient encounter procedure Naman ROUSSEAU -[facility] Work Phone: Start: 03-09-2025 End: 03-09-[address] Kevon Mackey DO Work Phone: -[facility] Start: 03-02-2025 ambulatory Kevon Mackey Facility: [facility] Start: 03-02-2025 Non-patient / Non-visit Dr. Fernando Edwards DO -[facility] Start: 03-02-2025 End: 03-02-2025 Admission to same day surgery center Dr. Jonathan Saleem MD -[facility]/Special Procedures Work Phone: Start: 03-02-2025 End: 03-02-[address] Kevon Mackey DO Work Phone: -[facility] Start: 02-25-2025 End: 02-25-2025 Patient encounter procedure Naman ROUSSEAU -[facility] Work Phone: Start: 02-25-2025 End: 02-25-[address] Kevon Mackey DO Work Phone: -[facility] Start: 02-10-2025 End: 02-10-[address] Kevon Mackey DO Work Phone: -Laboratory Start: 02-10-2025 End: 02-10-[address] Jasson Doan MD -Laboratory Work Phone: Start: 02-10-2025 End: 02-10-2025 Patient encounter procedure Adalgisa NICHOLAS -[facility] Work Phone: Start: 02-10-2025 End: 02-10-[address] Kevon Mackey DO Work Phone: -[facility] Start: 02-10-2025 End: 02-10-2025 ambulatory Kevon Mackey Facility:[facility] Start: 01-30-2025 End: 01-30-[address] Kevon Mackey DO Work Phone: -Cardiovascular Services Start: 01-30-2025 End: 01-30-[address] Jonathan Saleem MD -Cardiovascular Services Work Phone: Start: 01-29-2025 End: 01-29-2025 Patient encounter procedure Alta NICHOLAS -[facility] Work Phone: Start: 01-29-2025 End: 01-30-[address] Kevon Mackey DO Work Phone: -[facility] Start: 01-28-2025 End: 01-28-2025 Patient encounter procedure Naman Garcia PA -[facility] Work Phone: Start: 01-28-2025 End: 01-28-[address] Kevon Mackey DO Work Phone: -[facility] Start: 01-15-2025 End: 01-15-2025 ambulatory KEVON MACKEY Facility:[facility] Start: 01-15-2025 End: 01-15-2025 Patient encounter procedure KEVON MACKEY DO [facility] Start: 12-31-2024 End: 01-04-2025 ambulatory KEVON MACKEY Facility:[facility] Start: 12-31-2024 End: 01-04-2025 Encounter for general adult medical examination without abnormal findings KEVON MACKEY Facility:[facility] Start: 12-31-2024 End: 01-04-2025 Outreach Lab KEVON MACKEY DO [facility] Start: 11-17-2024 Non-patient / Non-visit Bismark Montoya DO -[facility] Start: 11-17-2024 End: 11-17-2024 Admission to same day surgery center Bismark Montoya DO -Endoscopy Work Phone: Start: 11-17-2024 End: 11-17-[address] Kevon Mackey DO Work Phone: [facility] Work Phone: Start: 10-16-2024 End: 10-16-[address] Jonathan Saleem MD -[facility] Work Phone: Start: 10-16-2024 End: 10-16-[address] Kevon Mackey DO Work Phone: [facility] Work Phone: Start: 10-03-2024 End: 10-03-[address] Kevon Mackey DO Work Phone: [facility] Work Phone: Start: 10-03-2024 End: 10-03-2024 Patient encounter procedure Adalgisa NICHOLAS -Laboratory Work Phone: Start: 10-03-2024 End: 10-03-2024 ambulatory [facility] Start: 09-10-2024 End: 09-10-[address] Jasson Doan MD -[facility] Work Phone: Start: 09-10-2024 End: 09-10-2024 ambulatory [facility] Facility:[facility] Start: 09-01-2024 End: 09-01-[address] Kevon Mackey DO Work Phone: [facility] Work Phone: Start: 09-01-2024 End: 09-01-[address] Jasson Doan MD -Laboratory Work Phone: Start: 09-01-2024 End: 09-01-2024 ambulatory [facility] Start: 08-21-2024 Non-patient / Non-visit Dr. Jonathan Saleem MD -[facility] Start: 08-21-2024 End: 08-21-[address] Kevon Mackey DO Work Phone: [facility] Work Phone: Start: 08-21-2024 End: 08-21-[address] Jonathan Saleem MD -Cardiovascular Services Work Phone: Start: 08-21-2024 End: 08-21-2024 ambulatory [facility] Facility:[facility] Start: 08-12-[address] Jonathan Saleem MD -Cat Scan, [facility] Work Phone: Start: 08-12-2024 ambulatory [facility]: [facility] Start: 08-11-2024 Registered Referred Self Referred -[facility] ardiovascular Services Work Phone: Start: 08-11-2024 ambulatory [facility] Facility: [facility] Start: 07-22-2024 ambulatory [facility] Facility: [facility] Start: 07-22-2024 Non-patient / Non-visit Bismark Montoya DO -[facility] Start: 07-22-2024 End: 07-22-2024 Admission to same day surgery center Bismark Montoya DO -Endoscopy Work Phone: Start: 07-22-2024 End: 07-22-2024 [facility] Start: 07-18-2024 End: 07-18-[address] Jonathan Saleem MD -[facility] Work Phone: Start: 07-18-2024 End: 07-18-2024 ambulatory [facility] Facility:[facility] Start: 06-13-2024 End: 06-13-[address] Jasson Doan MD -Ultrasound, [facility] Work Phone: Start: 06-13-2024 End: 06-13-2024 ambulatory [facility] Facility:[facility] Start: 05-13-2024 End: 05-13-[address] 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) Start: 02-05-2024 End: 02-05-2024 ambulatory KEVON MACKEY Facility:[facility] Start: 02-05-2024 End: 02-05-2024 Subsequent hospital visit by physician Radio General Katiana Ricci Work Phone: Radiology Comment on above: Left knee pain, unsp ecified chronicity [M25.562] Start: 01-02-2024 End: 01-02-2024 ambulatory KEVON MACKEY DO Facility:[facility] Start: 01-02-2024 End: 01-02-2024 Patient encounter procedure KEVON MACKEY DO [facility] Start: 07-18-2023 End: 07-18-2023 ambulatory LENARD ASENCIO MD Facility:[facility] Start: 07-18-2023 End: 07-18-2023 Patient encounter procedure LENARD ASENCIO MD [facility] Start: 06-15-2023 End: 06-15-2023 ambulatory LENARD ASENCIO MD Facility:A Start: 05-21-2023 End: 05-21-2023 Non-patient / Non-visit Dr. Kevon Mackey Work Phone: [facility] Work Phone: Start: 05-21-2023 End: 05-21-[address] Kevon Mackey Work Phone: [facility] Work Phone: Start: 05-21-2023 End: 05-21-[address] Kevon Mackey Work Phone: [facility]-Pulmonary Services/Neurology Work Phone: Start: 03-07-2023 End: 03-07-2023 ambulatory ANA VILLA MD Facility:A Start: 03-07-2023 End: 03-07-2023 Patient encounter procedure ANA VILLA MD [facility] Start: 03-05-2023 End: 03-05-2023 ambulatory ANA VILLA MD Facility:B Start: 02-27-2023 End: 02-27-2023 ambulatory KEVON MACKEY Facility:[facility] Start: 02-27-2023 End: 02-27-2023 Subsequent hospital visit by physician [facility] Work Phone: Radiology Comment on above: Chronic pain of left knee [M25.562, G89.29] Start: 02-01-2023 End: 02-01-2023 ambulatory LENARD ASENCIO MD Facility:B Start: 02-01-2023 End: 02-01-2023 Patient encounter procedure LENARD ASENCIO MD [facility] Start: 01-09-2023 End: 01-09-2023 Patient encounter procedure Mateo Sawant 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 Work Phone: Orthopaedics Comment on above: 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) Start: 01-09-2023 End: 01-09-2023 Subsequent hospital visit by physician [facility] Work Phone: Radiology Comment on above: Chronic pain of left knee [M25.562, G89.29] Start: 12-27-2022 ambulatory Rao Francois Work Phone: Orthopaedics Comment on above: Return To [facility]ORK Start: 12-21-2022 End: 12-21-2022 Patient encounter procedure Mateo Grater HEMMING AND TACKING MACHINE OPERATOR.ROAD TRAIN DRIVER Work Phone: Orthopaedics Comment on above: Status post revision of total replacement of left knee Start: 12-15-2022 Telephone encounter Rao groves MD Work Phone: Orthopaedics Comment on above: Patient Question Start: 12-11-2022 End: 03-05-2023 Physical therapy management MR. 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); Stiffness of left knee Start: 12-07-2022 End: 12-07-2022 Subsequent hospital visit by physician [facility] Work Phone: Radiology Comment on above: Chronic pain of left knee [M25.562, G89.29] Start: 12-01-2022 Refill Rao Francois Work Phone: [facility] [place] Comment on above: Refill Request Start: 11-30-2022 Telephone encounter Rao groves MD Work Phone: Orthopaedics Comment on above: Patient Question Start: 11-27-2022 Orders Only Mateo Sawant HEMMING AND TACKING MACHINE OPERATOR.ROAD TRAIN DRIVER Work Phone: Orthopaedics Comment on above: Chronic pain of left knee (Primary Dx) Start: 11-20-2022 End: 11-20-[address] EDILBERTO FRYE MD [facility] Start: 11-09-2022 ambulatory Rao Francois Work Phone: [facility] Start: 11-09-2022 Letter encounter Rao Thomas MD Work Phone: Orthopaedics Comment on above: Letter Start: 11-06-2022 End: 11-06-2022 Admission to establishment [facility] 1 Work Phone: [facility] Start: 11-06-2022 End: 11-06-2022 ambulatory Pac [place] 1 Work Phone: Pre Anesthesia Comment on above: Preoperative examina tion (Primary Dx); Migraine without aura and without status migrainosus, not intractable; Primary hypertension; Gastroesophageal reflux disease, unspecified whether esophagitis present; Splenomegaly; Alcoholic cirrhosis of liver without ascites (HCC); Leukopenia, unspecified type; Thrombocytopenia (HCC); History of prostate cancer Start: 11-06-2022 End: 11-06-2022 Preprocedural examination done Pac [place] 1 Work Phone: Pre Anesthesia Start: 10-10-2022 End: 10-10-2022 Orders Only Rao Thomas MD Work Phone: Orthopaedics Comment on above: Joint laxity of left knee (Primary Dx); Effusion of left knee; Pain due to internal orthopedic prosthetic devices, implants and grafts, initial encounter ([facility]); S/P total knee arthroplasty, left Pain due to internal orthopedic prosthetic devices, implants and grafts, initial encounter (HCC) (Primary Dx) PAC APPOINTMENT Start: 10-04-2022 Telephone encounter Rao groves MD Work Phone: [facility] [place] Comment on above: Appointment Start: 10-02-2022 End: 10-02-2022 Subsequent hospital visit by physician [facility] Radiology Comment on above: Effusion of left kne e [M25.462] Start: 10-02-2022 End: 10-02-2022 Patient encounter procedure Ge Maguire MD, PhD Work Phone: Orthopaedics Comment on above: Effusion of left kne e (Primary Dx); Pain due to internal orthopedic prosthetic devices, implants and grafts, initial encounter (HCC) Start: 08-03-2022 End: 08-03-2022 Patient encounter procedure MARIA A STRICKLAND HEMMING AND TACKING MACHINE OPERATOR-ROAD TRAIN DRIVER [facility] Start: 06-09-2022 End: 06-09-2022 Patient encounter procedure LENARD ASENCIO MD [facility] Start: 04-14-2022 End: 04-14-2022 Patient encounter procedure DEXTER ROLDAN HEMMING AND TACKING MACHINE OPERATOR-ROAD TRAIN DRIVER [facility] Start: 04-03-2022 End: 04-03-2022 Patient encounter procedure DEXTER ROLDAN HEMMING AND TACKING MACHINE OPERATOR-ROAD TRAIN DRIVER [facility] Start: 02-24-2022 End: 02-24-[address] EDILBERTO FRYE MD [facility] Start: 02-09-2022 End: 02-09-2022 Patient encounter procedure JUNITO GINGER [facility] Start: 01-16-2022 End: 01-16-2022 Patient encounter procedure ANA VILLA MD [facility] Start: 01-09-2022 End: 01-09-2022 Patient encounter procedure ANA VILLA MD [facility] Start: 01-05-2022 End: 01-05-2022 Subsequent hospital visit by physician [facility] Imaging [facility] 1 Work Phone: Molecular Imaging Comment on above: Pain due to internal orthopedic prosthetic devices, implants and grafts, initial encounter (HCC) [T84.84XA] Start: 01-05-2022 End: 01-05-2022 Subsequent hospital visit by physician [facility] Work Phone: Molecular Imaging Comment on above: Pain due to internal orthopedic prosthetic devices, implants and grafts, initial encounter (HCC) [T84.84XA] Start: 01-04-2022 End: 01-04-[address] Mark Smith Work Phone: [facility] Start: 12-30-2021 End: 12-30-2021 Patient encounter procedure Suzette Paul PA-C Work Phone: Orthopaedics Comment on above: Knee swelling (Prima ry Dx); Pain due to internal orthopedic prosthetic devices, implants and grafts, initial encounter ([facility]); S/P total knee arthroplasty, left Start: 12-28-2021 End: 12-28-[address] Mark Smith Work Phone: [facility] Start: 12-28-2021 End: 12-28-2021 Subsequent hospital visit by physician [facility] Radiology Comment on above: Knee swelling [M25.4 69] Start: 12-28-2021 End: 12-28-2021 Patient encounter procedure Ge Maguire MD Work Phone: Orthopaedics Comment on above: Knee swelling (Prima ry Dx); Pain due to internal orthopedic prosthetic devices, implants and grafts, initial encounter ([facility]) Start: 12-28-2021 E-mail encounter claudia m caregiver Suzette Paul PA-C Work Phone: [facility] Start: 12-28-2021 Letter encounter Suzette hernandez PA-C Work Phone: Orthopaedics Comment on above: letter Start: 11-07-2021 End: 11-07-2021 Emergency department patient visit CURT COSME MD [facility] Start: 11-01-2021 End: 11-01-2021 Patient encounter procedure Suzette MCCRAYC Work Phone: Orthopaedics Comment on above: Acute pain of left k nee (Primary Dx); Knee swelling; S/P total knee arthroplasty, left Start: 10-26-2021 End: 10-26-[address] Mark Smith Work Phone: [facility]-Pulmonary Medicine [facility] Start: 10-25-2021 End: 10-25-2021 Patient encounter procedure Ge Maguire MD Work Phone: Orthopaedics Comment on above: Acute pain of left k nee (Primary Dx); Knee swelling Start: 10-25-2021 End: 10-25-2021 Subsequent hospital visit by physician [facility] Work Phone: Radiology Comment on above: Left knee pain, unsp ecified chronicity [M25.562] Start: 10-24-2021 End: 10-24-2021 Emergency department patient visit DR PARKER FERGUSON MD [facility] Start: 10-07-2021 End: 10-07-2021 Patient encounter procedure [facility] Start: 09-30-2021 End: 09-30-2021 Patient encounter procedure MARK SMITH DO [facility] Start: 09-19-2021 End: 09-19-2021 Patient encounter procedure ANA VILLA MD [facility] Start: 09-12-2021 End: 09-12-2021 Patient encounter procedure ANA VILLA MD [facility] Start: 07-25-2021 End: 07-25-2021 Patient encounter procedure ANITA BARNHART MD [facility] Start: 06-20-2021 End: 06-20-2021 Patient encounter procedure LENARD ASENCIO MD [facility] Start: 06-13-2021 End: 06-13-2021 Patient encounter procedure ANA VILLA MD [facility] Start: 06-06-2021 End: 06-06-2021 Patient encounter procedure ANA VILLA MD [facility] Start: 05-13-2021 End: 05-13-2021 Patient encounter procedure MARK SMITH DO [facility] Start: 05-09-2021 End: 05-09-2021 Patient encounter procedure MARIA A STRICKLAND HEMMING AND TACKING MACHINE OPERATOR-ROAD TRAIN DRIVER [facility] Start: 05-06-2021 End: 05-06-2021 Emergency department patient visit LISA SHANNON MD [facility] Start: 04-21-2021 End: 04-21-2021 Admission to establishment ANA VILLA MD [facility] Start: 04-18-2021 End: 04-18-2021 Patient encounter procedure ANA VILLA MD [facility] Start: 04-06-2021 End: 04-06-2021 Patient encounter procedure ANA VILLA MD [facility] Start: 07-09-2018 End: 07-09-2018 Patient encounter procedure [facility] Procedures Date Procedure Procedure Detail Performing Clinician Start: 02-10-2025 Uokko-0-Ooiarnssvgw measurement Dr. Jeromy Mackey DO Work Phone: Comment on above: [employer] ([place]) Electrochemiluminescen ce Immunoassay(ECLIA)Values obtained with different assay methods or kits cannotbe used interchangeably. Results cannot be interpreted asabsolute evidence of the presence or absence of malignantdisease.This test is not interpretable in females.Performed at: [address] [id number] Director: Edilberto Cooley PhD, Phone: [phone] Start: 11-17-[address] Kevon pena DO Work Phone: Start: 08-12-2024 CT angiography of coronary arteries Dr. Kevon Mackey DO Work Phone: Start: 07-18-2024 Evaluation of diagnostic study results Dr. Kevon Mackey DO Work Phone: Start: 06-13-2024 Ultrasound elastography of liver Dr[address] Jimenez Mackey DO Work Phone: Start: 02-05-2024 Radiologic examination knee 3 views Mateo Grater HEMMING AND TACKING MACHINE OPERATOR.ROAD TRAIN DRIVER Work Phone: Start: 02-27-2023 Radiologic examination knee 3 views Mateo Grater HEMMING AND TACKING MACHINE OPERATOR.ROAD TRAIN DRIVER Work Phone: Start: 01-09-2023 Radiologic examination knee 3 views Mateo Grater HEMMING AND TACKING MACHINE OPERATOR.ROAD TRAIN DRIVER Work Phone: Start: 12-07-2022 Radiologic examination knee 1/2 views Mateo Grater HEMMING AND TACKING MACHINE OPERATOR.ROAD TRAIN DRIVER Work Phone: Start: 11-06-2022 Ecg routine ecg w/least 12 lds i&r only [facility] Provider Start: 10-02-2022 Radiologic examination knee 3 views Ge Maguire MD Work Phone: Start: 06-04-2022 Total knee replacement LENARD ASENCIO MD Comment on above: Revision Start: 01-05-2022 Bone &/joint imaging 3 phase study Ge Maguire MD Work Phone: Start: 01-04-2022 MRI of abdomen with contrast Dr. Mark Smith Work Phone: Start: 07-29-2022 Arthrocentesis aspir&/inj major jt/bursa w/o us Suzette Paul PA-C Work Phone: Start: 12-28-2021 Radiologic examination knee 3 views Ge Maguire MD Work Phone: Start: 10-25-2021 Radiologic exam knee complete 4/more views Ge Maguire MD Work Phone: Start: 05-04-2021 Prostatectomy ANA VILLA MD Start: 04-29-2021 Robot assisted laparoscopic radical prostatectomy MARIA A STRICKLAND HEMMING AND TACKING MACHINE OPERATOR-ROAD TRAIN DRIVER Start: 04-06-2021 Biopsy of prostate ANA VILLA MD Start: 04-04-2021 Biopsy of prostate ANA VILLA MD Start: 06-17-2018 Adult depression screening assessment Ge Maguire MD Work Phone: Start: 06-04-2016 Toe structure (body structure) ANA DODGE MD Comment on above: right great toe Start: 06-04-2015 Total knee replacement ANA VILLA MD Comment on above: Left knee Start: 06-04-1994 Cholecystectomy ANA VILLA MD Start: 06-04-1987 Vasectomy ANA VILLA MD Start: 06-04-1977 Bilateral inguinal hernia (disorder) ANA VILLA MD Comment on above: [...] Author Start: 11-23-2025 DIABETES SCREEN DIABETES SCREEN [facility] Start: 11-23-2025 Diabetes Screening Diabetes Screenluis aparicio [facility] Start: 11-06-2025 DIABETES SCREEN DIABETES SCREEN [facility] Start: 03-09-2025 End: 03-09-2025 Evaluation of diagnostic study results [facility] Start: 03-02-2025 Cardioversion [facility] Start: 03-02-2025 Non-patient / Non-visit Non-patient / Non-visit -[facility] Start: 03-02-2025 End: 03-02-2025 Admission to same day surgery center [facility] -[facility] Courier/Special Procedures Work Phone: Start: 03-02-2025 Patient discharge [facility] Start: 02-25-2025 End: 02-25-2025 Evaluation of diagnostic study results [facility] Start: 01-28-2025 End: 01-28-2025 Evaluation of diagnostic study results [facility] Start: 11-24-2024 Urine microalbumin profile DTaP,Tdap,Td Vaccine (2 - Td or Tdap) [facility] Start: 11-17-2024 Egd transoral biopsy single/multiple EGD BIOPSY SINGLE/MULTIPLE [facility] Start: 11-17-2024 Patient discharge [facility] Start: 07-22-2024 Egd band ligation esophgeal/gastric varices EGD VARICES LIGATION [facility] Start: 07-22-2024 Egd transoral biopsy single/multiple EGD BIOPSY SINGLE/MULTIPLE [facility] Start: 07-22-2024 Patient discharge [facility] Start: 02-03-2024 Covid-19 Vaccine () Covid-19 Vaccine () [facility] Start: 02-03-2024 Covid-19 Vaccine () Covid-19 Vaccine () [facility] Start: 02-03-2024 Influenza vaccination Influenza Vacc ine (#1) [facility] Start: 11-07-2023 BP CONTROLLED (<130/80) BP CONTROLLE D (<130/80) [facility] Start: 02-02-2023 Covid-19 Vaccine ( season) Covid-19 Vaccine ( season) [facility] Start: 02-02-2023 Influenza vaccination C [facility] Start: 11-06-2022 End: 01-06-2023 TYPE AND SCREEN,30 DAY [facility] Work Phone: Comment on above: Expected: 11/06/2022 , Expires: 01/06/2023 Start: 08-04-2022 DIABETES SCREEN DIABETES SCREEN [facility] Start: 06-04-2022 DEPRESSION ASSESSMENT DEPRESSION ASS ESSMENT [facility] Start: 02-02-2022 Influenza vaccination INFLUENZA (#1) [facility] Start: 01-04-2022 MR Abdomen WO and W contrast IV [facility] Work Phone: Start: 01-04-2022 MRI of abdomen with contrast MRI Abd WITH and W/O Contrast [facility] Work Phone: Start: 12-28-2021 End: 02-27-2022 Erythrocyte sedimentation rate [facility] Work Phone: Comment on above: Expected: 12/28/2021 , Expires: 02/27/2022 Start: 08-16-2021 COVID-19 VACCINE (4 - Booster for Moderna series) COVID-19 VACCINE (4 - Booster for Moderna series) [facility] Start: 06-13-2021 COVID-19 VACCINE (4 - Booster for Moderna series) COVID-19 VACCINE (4 - Booster for Moderna series) [facility] Start: 06-13-2021 COVID-19 VACCINE (4 - Moderna series) COVID-19 VACCINE (4 - Moderna series) [facility] Start: 2019 RSV Vaccine (1 - 1-d ose 60+ series) RSV Vaccine (1 - 1-dose 60+ series) [facility] Start: 2019 RSV Vaccine (1 - Ris k 60-74 years 1-dose series) RSV Vaccine (1 - Risk 60-74 years 1-dose series) [facility] Start: 06-17-2019 Adult depression screening assessment DEPRESSION SCREENING [facility] Start: 12-13-2014 PROSTATE CANCER SCREENING DISCUSSION PROSTATE CANCER SCREENING DISCUSSION [facility] Start: 12-13-2014 Prostate specific antigen measurement Prostate Cancer Screening Discussion [facility] Start: 07-05-2011 HEPATITIS A (4 of 4 - Hep A Twinrix risk 4-dose series) HEPATITIS A (4 of 4 - Hep A Twinrix risk 4-dose series) [facility] Start: 12-13-2009 SHINGRIX VACCINE (1 of 2) SHINGRIX VACCINE (1 of 2) [facility] Start: 12-13-2004 COLOGUARD (FIT-DNA) COLOGUARD (FIT-D NA) [facility] Start: 12-13-2004 Colonoscopy COLONOSCOPY [facility] Start: 12-13-2004 COLORECTAL CANCER SCREENING COLORECTAL CANCER SCREENING [facility] Start: 12-13-[address] COLONOGRAPHY [facility] Start: 12-13-2004 FECAL OCCULT BLOOD FECAL OCCULT BLOO D [facility] Start: 12-13-2004 Screening for malign ant neoplasm of colon [facility] Start: 12-13-2004 SIGMOIDOSCOPY SIGMOIDOSCOPY [facility] Start: 12-13-1994 Lipid 1996 panel - S marcos or Plasma Lipid Screening [facility] Start: 12-13-1994 Lipid panel Lipid Screening [facility] Start: 12-13-1994 LIPID SCREEN LIPID SCREEN [facility] Start: 12-13-1978 Urine microalbumin profile DTAP,TDAP,TD (1 - Tdap) [facility] Start: 12-13-1977 ANNUAL PCP TEAM HABILITATION ASSISTANT INOCENCIO DISEASE VISIT ANNUAL PCP TEAM CHRONIC DISEASE VISIT [facility] Start: 12-13-1977 Anxiety Screening Anxiety Screening [facility] Start: 12-13-1977 BP CONTROLLED (<130/80) BP CONTROLLE D (<130/80) [facility] Start: 12-13-1977 Depression Screening Depression Scre ening [facility] Start: 12-13-1977 HIV SCREENING HIV SCREENING [facility] Start: 12-13-1977 HIV screening HIV Screening [facility] Start: 12-13-1965 PNEUMOCOCCAL (1 - PCV) PNEUMOCOCCAL (1 - PCV) [facility] Sptfd-8-whaobdiluib. tumo r marker [Units/volume] in Serum or Plasma [facility] Basic metabolic 2008 panel with ionized calcium - Serum or Plasma [facility] End: 01-27-2023 Bone &/joint imaging 3 phase study NM BONE 3 PHASE Radiology Routine Pain due to internal orthopedic prosthetic devices, implants and grafts, initial encounter (HCC) 1 Occurrences starting 12/28/2021 until 01/27/2023 [facility] Work Phone: Comment on above: 1 Occurrences starti ng 12/28/2021 until 01/27/2023 Bone &/joint imaging 3 phase study NM BONE 3 PHASE Radiology Routine Pain due to internal orthopedic prosthetic devices, implants and grafts, initial encounter ([facility]) 01/05/2022 3:14 PM EDT [facility] Work Phone: C reactive protein [Mass/volume] in Serum or Plasma [facility] Cardioversion [facility] CBC W Auto Different ial panel - Blood [facility] CBC W Auto Different ial panel - Blood [facility] CBC W Auto Different ial panel - Blood [facility] Comprehensive metabo lic 1999 panel - Serum or Plasma [facility] metabo lic 1999 panel - Serum or Plasma [facility] End: 11-07-2023 ECG COMPLETE ECG COMPLETE ECG Routine Preoperative examination 1 Occurrences starting 11/06/2022 until 11/07/2023 [facility] Work Phone: Comment on above: 1 Occurrences starti ng 11/06/2022 until 11/07/2023 ECG COMPLETE ECG COMPLETE ECG 11/06/2022 8:55 AM EDT [facility] Lipid 1996 panel - S marcos or Plasma [facility] Natriuretic peptide. B prohormone N-Terminal [Mass/volume] in Serum or Plasma [facility] Patient referral [facility] Work Phone: Prothrombin time [facility] Prothrombin time [facility] End: 12-28-2023 XR KNEE LIMITED 2V AP/LAT LEFT XR KNEE LIMITED 2V AP/LAT LEFT Radiology Routine Chronic pain of left knee 1 Occurrences starting 11/28/2022 until 12/28/2023 [facility] Work Phone: Comment on above: 1 Occurrences starti ng 11/28/2022 until 12/28/2023 XR KNEE POST OP 3V AP/LAT/MERCHANT LEFT XR KNEE POST OP 3V AP/LAT/MERCHANT LEFT Radiology Routine Knee swelling 12/28/2021 3:05 PM EDT [facility] Work Phone: [facility] Immunizations Immunization Date Immunization Notes Care Provider Fa [facility] 04-29-2024 influenza, injectabl e, quadrivalent, contains preservative; Translations: [Fluarix PF Prefilled Syringe ] KEVON MACKEY DO [facility] 06-13-2022 Pneumococcal conjuga te PCV20, polysaccharide [id number] conjugate, adjuvant, PF; Translations: [Prevnar 20] MARIA A STRICKLAND 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 04-18-2021 COVID-19, mRNA, LNP- S, PF, 100 mcg/ 0.5 mL dose; Translations: [Moderna COVID-19 Vaccine] ANA VILLA [facility] 03-16-2021 influenza virus vacc ine, unspecified formulation [facility]ILL[facility] 09-16-2020 SARS-CoV-2 (COVID-19 ) mRNA-1273 vaccine ANA VILLA [facility] Comment on above: Result Comment: 2020: [id number] 08-19-2020 SARS-CoV-2 (COVID-19 ) mRNA-1273 vaccine ANA VILLA MD [facility] Comment on above: Result Comment: 2020: [id number] 07-21-2020 zoster vaccine recombinant ANA VILLA MD [facility] 05-20-2020 zoster vaccine recombinant ANA VILLA [facility] 03-11-2020 influenza, injectabl e, quadrivalent, preservative free; Translations: [Fluarix PF Quadrivalent ] ANA VILLA MD [facility] 03-12-2019 influenza, injectabl e, quadrivalent, preservative free; Translations: [Fluarix PF Quadrivalent ] ANA VILLA MD [facility] 04-10-2018 influenza virus vacc ine, unspecified formulation ANA VILL[facility] 02-28-2017 influenza virus vacc ine, unspecified formulation A[facility] 08-03-2016 zoster vaccine, live ANA VILLA [facility] 03-19-2016 influenza virus vacc ine, unspecified formulation ANA VILL[facility] 03-04-2016 influenza virus vacc ine, unspecified formulation ANA [facility] 04-28-2015 influenza virus vacc ine, unspecified formulation A[facility] 04-28-2015 influenza, seasonal, injectable Ge Maguire MD Work Phone: [facility] 04-02-2015 influenza virus vacc ine, unspecified formulation ANA [facility] 11-24-2014 tetanus toxoid, redu jie diphtheria toxoid, and acellular pertussis vaccine, adsorbed ANA [facility]ILL[facility] 05-14-2014 influenza virus vacc ine, unspecified formulation ANA VILLA [facility] 04-04-2013 influenza virus vacc ine, unspecified formulation ANA VILL[facility] 09-06-2012 hepatitis A vaccine, adult dosage ANA VILLA [facility] 01-15-2012 hepatitis A vaccine, adult dosage ANA VILLA [facility] 01-15-2012 pneumococcal polysaccharide vaccine, 23 valent ANA VILLA [facility] 01-02-2011 hepatitis A and hepatitis B vaccine Ge Maguire MD Work Phone: [facility] 09-07-2010 hepatitis A and hepatitis B vaccine Ge Maguire MD Work Phone: [facility] 07-05-2010 hepatitis A and hepatitis B vaccine Ge Maguire MD Work Phone: [facility] Payers Date Payer Category Payer Private Health Insurance [id number] 2024 Unknown [id number] 2024 Unknown 000 2024 Self-pay [id number] 2021 Unknown [id number] 2021 Unknown [id number] 2016 Unknown [id number] 2011 Unknown [id number] 1.2.840.636970.1.13.159.2.7.3.540039.315 1959 Unknown [id number] 2.16.8 40.1.262577.3.579.2.7 1959 Unknown [id number] 2.16.8 40.1.513435.3.579.2.7 1959 Unknown [id number] 2.16.8 40.1.395077.3.579.2.627 1959 Unknown [id number] 2.16.8 40.1.936850.3.579.2.627 1959 Unknown [id number] 2.16.8 40.1.660223.3.579.2.627 1959 Unknown [id number] 2.16.8 40.1.493257.3.579.2.627 1959 Unknown [id number] 2.16. 840.1.548433.3.579.2.627 1959 Unknown [id number] 2.16. 840.1.595780.3.579.2.627 1959 Unknown [id number] 2.16.8 40.1.728307.3.579.2.627 1959 Unknown [id number] 2.16. 840.1.481222.3.579.2.627 Unknown [id number] 2.16.8 40.1.006639.3.579.2.462 Unknown [id number] 2.16.8 40.1.166840.3.579.2.462 Unknown [id number] 2.16.8 40.1.539218.3.579.2.462 Unknown [id number] 2.16.8 40.1.012570.3.579.2.462 Unknown [id number] 2.16.8 40.1.413337.3.579.2.462 Unknown [id number] 2.16.8 40.1.492709.3.579.2.462 Unknown [id number] 2.16.8 40.1.423966.3.579.2.462 Unknown [id number] 2.16.8 40.1.298103.3.579.2.462 Unknown [id number] 2.16.8 40.1.245108.3.579.2.462 Unknown [id number] 2.16.8 40.1.874412.3.579.2.462 Unknown [id number] 2.16.8 40.1.483327.3.579.2.462 Unknown [id number] 2.16.8 40.1.818562.3.579.2.462 Unknown [id number] 2.16.8 40.1.943029.3.579.2.462 Unknown [id number] 2.16.8 40.1.443779.3.579.2.462 Unknown [id number] 2.16.8 40.1.098676.3.579.2.462 Unknown [id number] 2.16.8 40.1.523483.3.579.2.462 Unknown [id number] 2.16.8 40.1.606181.3.579.2.462 Unknown [id number] 2.16.8 40.1.277079.3.579.2.462 Unknown [id number] 2.16.8 40.1.126866.3.579.2.462 Unknown [id number] 2.16.8 40.1.030042.3.579.2.462 Unknown [id number] 2.16.8 40.1.984959.3.579.2.462 Unknown [id number] 2.16.8 40.1.393063.3.579.2.462 Unknown [id number] 2.16.8 40.1.028140.3.579.2.462 Unknown [id number] 2.16.8 40.1.003781.3.579.2.462 Unknown [id number] 2.16.8 40.1.787420.3.579.2.462 Unknown [id number] 2.16.8 40.1.466923.3.579.2.462 Unknown [id number] 2.16.8 40.1.245433.3.579.2.462 Unknown [id number] 2.16.8 40.1.831520.3.579.2.462 Unknown [id number] 2.16.8 40.1.986288.3.579.2.462 Unknown [id number] 2.16.8 40.1.344442.3.579.2.462 Unknown [id number] 2.16.8 40.1.642223.3.579.2.462 Social History Date Type Detail Facility Start: 11-26-2019 End: 03-02-2025 Never smoked tobacco (finding) [facility] Start: 1960 Sex Assigned At Male A [facility] Start: 08-13-2017 End: 10-26-2021 Tobacco smoking status FLIS Unknown if ever smoked [facility] Start: 10-25-2021 End: 11-06-2022 Alcohol intake Current non-drinker of alcohol (finding) [facility] Start: 06-15-2015 History SDOH Alcohol Comment former ETOH use. [facility] Start: 10-15-2021 End: 01-05-2022 Exposure to SARS-CoV-2 (event) Not sure [facility] Start: 11-04-2012 Tobacco use and exposure Smokeless tobacco non-user [facility] Start: 05-11-2020 End: 11-06-2022 History of Social function [facility] Start: 05-11-2020 End: 11-06-2022 Tobacco use panel [facility] Adult Depression Screening Assessment 0 [facility] Start: 09-17-2020 Gender identity Identifies as male gender (finding) [facility] Start: 09-17-2020 Sexual orientation Heterosexual (fin ding) [facility] Start: 03-24-2021 End: 08-28-2024 Sex Male (finding) [facility] Sexual Orientation Johny sancheztal [facility] Medical Equipment Procedure Code Equipment Code Equipment Origin al Text Equipment Identifier Dates EGD, with monitored anesthesia care Oesophageal endoscopic ligator, single-useHaemorrhoi d ligator [id number] FDA Start: 07-22-2024 AMELIA 3GRM HEMO STAT ABS FDA Start: 08-20-2017 Cement Palacos R Green Bone 40gm - [id number] Start: 06-28-2015 Component Person a Triathlon 12 Standard Cocr Femoral Cemented Posterior - [id number] Start: 06-28-2015 Component 41mm A ll Poly Patellar Psn - [id number] Start: 06-28-2015 Insert Persona 1 0-11 E-F Polyethylene 12mm Articular Posterior Stabilized - [id number] Start: 06-28-2015 Baseplate Person a 5d H Tivanium Tibial Cemented Stem Knee Left - [id number] Start: 06-28-2015 AMELIA 3GRM HEMO STAT ABS FDA Start: 08-20-2017 AMELIA 3GRM HEMO STAT ABS FDA Start: 08-20-2017 Kit Bioprep Bone Cement Preparation Plug Drafter Landscape [place] Curette Suction - [id number] Start: 11-22-2022 Triathlon Centra l Femoral Cone Augment Left [id number] Start: 11-22-2022 Augment Triathlo n 8 5mm Femoral Total Stabilize Knee Posterior - [id number] Start: 11-22-2022 AMELIA 3GRM HEMO STAT ABS FDA Start: 08-20-2017 Cement Simplex P Bone Radiopaque Full Dose Sterile - [id number] Start: 11-22-2022 Cement Simplex P Bone Radiopaque Full Dose Sterile - [id number] Start: 11-22-2022 Kit Bioprep Bone Cement Preparation Plug Drafter [place]scape [place] Curette Suction - [id number] Start: 11-22-2022 Augment Triath T ib Cone Sz E - [id number] Start: 11-22-2022 Baseplate Triath damien 7 Biggers Cocr Tibial Total Stabilize Cemented Knee - [id number] Start: 11-22-2022 Component Triath damien 8 Cocr Femoral Total Stabilize Knee Left - [id number] Start: 11-22-2022 Stem Triathlon 1 5mm Cocr 50mm Femoral Cemented Total Stabilize Knee - [id number] Start: 11-22-2022 Augment Triathlo n 8 5mm Femoral Total Stabilize Knee Posterior - [id number] Start: 11-22-2022 Augment Triathlo n 7 5mm Tibial Total Stabilize Right Medial Left Lateral - [id number] Start: 11-22-2022 Stem Triathlon 1 5mm Cocr 50mm Femoral Cemented Total Stabilize Knee - [id number] Start: 11-22-2022 Augment Triathlo n 7 5mm Tibial Total Stabilize Left Medial Right Lateral - [id number] Start: 11-22-2022 AMELIA 3GRM HEMO STAT [...] Effusion: min to no effusion L knee [facility] 02-24-2022 Functional Status Sleeping quiet ly with easy respirations [facility] 02-24-2022 Functional Status [facility] 11-07-2021 Functional Status Standard Safet y ID band on, Allergy Band on, Call device within reach, Bed in low position, Wheels locked, Upper/Half-Length side-rails up, Bedside Cart Locked, Safety level maintained [facility] 10-24-2021 Functional Status [facility] 10-24-2021 Functional Status [facility] Mental Status Date Assessment Result Facility 11-17-2024 Cognitive function Voice/Name [facility] Work Phone: 07-22-2024 Cognitive function Level Of Consciousness Sedated [facility] Work Phone: 02-24-2022 Mental Status Orientation Asse ssment Oriented x 4 [facility] 11-07-2021 Mental Status Orientation Oriented x 4 [facility] 10-24-2021 Mental Status [facility] 10-24-2021 Mental Status [facility] Clinical Notes 06-28-2015 to 03-02-2025 Note Date & Type Note Facility 03-02-2025 Procedure note [facility] 03-02-2025 Procedure note [facility] 02-25-2025 Progress note [facility] 11-17-2024 Evaluation note Diagnosis Onset Date Resolution Varices of esophagus determined by endoscopy acute November 5:51am CAD (coronary artery disease) acute January 28 7:46am New onset atrial fibrillation acute January 28 7:46am Dyslipidemia chronic January 28, 2025 7:46am Hypertension chronic January 28, 2025 7:46am New onset atrial fibrillation acute January 29 1:03pm Alcoholic cirrhosis of liver chronic January 29 1:03pm Chronic migraine chronic January 032024 1:03pm Hypertension chronic January 29, 2025 1:03pm CAD (coronary artery disease) acute February 10, 025 9:58am New onset atrial fibrillation acute February 10 9:58am Shortness of breath acute 2024 9:58am Dyslipidemia chronic February 9:58am Hypertension chronic February 9:58am CAD (coronary artery disease) acute February 25, 2025 7:52am New onset atrial fibrillation acute February 25, 2025 7:52am Shortness of breath acute 2024 7:52am Dyslipidemia chronic February 252024 7:52am Hypertension chronic February 252024 7:52am [facility] Work Phone: [phone]) 277-673906-16-2025 Consult note [facility] Medical Records Department [address] [place] [address] Anesthesia Postop Eval I 11/17/24 0733 MR#: [id number] Acct: [id number] Name: SRINATH PEPE Rep #:[id number] : 1960 63 From: Tom Lara PCP: Dr. Kevon Mackey, DO Status:REG SD Y Race: C Location: [place] [address] Anesthesia: Postop Eval I Current Vital Signs Temperature: 97.8 F Pulse Rate: 61 Blood Pressure: 108/79 Respiratory Rate: 14 Pulse Ox: 99 Oxygen Delivery Method: Room Air Assessment Airway patent: Yes Spontaneous unlabored respirations: Yes Mental status: Awake and Calm nausea: No Vomiting: No Anesthesia Complication: No Fluid Hydration Crystalloid volume administer (ml): 300 Total IV fluid infused: 300 Progress Note Anesthesia document: Postop Eval 1 completed: Yes 11/17/24 0734 > Date _ Tom Barlow Signature: Date CC: ~ Signed [facility]06-16-2025 Procedure note [facility] Medical Records Department [address] [place] [address] Operative Report - CC Letter MR#: [id number] Acct: [id number] Name: SRINATH PEPE Rep #:[id number] : 1960 63 From: Bismark Montoya DO PCP: Dr. Kevon Mackey, DO Status:REG [facility] 11/17/2024 Kevon Mackey Do Re : Upper GI endoscopy procedure for Srinath My Dear Dr. Mackey This procedure was performed on Sunday, November 17, 2024. My impressions and recommendations are as follows: Impressions : - Z-line irregular, 40 cm from the incisors. Biopsied. - Erythematous mucosa in the gastric body. Biopsied. - Erythematous duodenopathy. Biopsied. Recommendations : - Discharge patient to home. - Resume previous diet. - Continue present medications. - Await pathology results. My findings are described in the full procedure note, which is enclosed. If I can be of further assistance, please feel free to contact me at . Sincerely, Bismark Montoya DO 11/17/2024 7:30:11 AM This report has been signed electronically. 11/17/24729 Date _ Bismark Montoya DO Cosigner Signature: Date (if indicated) CC: Dr. Kevon Mackey DO; Bismark Montoya DO ~ Date Dictated: 11/17/24706 Date Transcribed: Nickel Plater: RF Signed [facility]06-16-2025 Procedure note [facility] Medical Records Department [address] [place] [address] EGD Report MR#: [id number] Acct: [id number] Name: SRINATH PEPE Rep #:[id number] : 1960 63 From: Bismark Montoya DO PCP: Dr. Kevon Mackey DO Status:REG [facility] Patient Name: Srinath Pepe Procedure Date: 11/17/2024 7:07 AM Date of : 1960 Age: 63 Procedure: Upper GI endoscopy Indications: Cirrhosis with suspected esophageal varices Providers: Bismark Montoya DO Referring MD: Kevon Mackey Do Medicines: Monitored Anesthesia Care Patient Profile: This is a 63 year old male. Refer to note in patient chart for documentation of history and physical. Patient has symptoms. His most recent EGD for biopsy and EGD for treatment of bleeding. Complications: No immediate complications. Procedure: Pre-Anesthesia Assessment: - Prior to the procedure, a History and Physical was performed, and patient medications and allergies were reviewed. The patient is competent. The risks and benefits of the procedure and the sedation options and risks were discussed with the patient. All questions were answered and informed consent was obtained. Patient identification and proposed procedure were verified in the pre-procedure area. Mental Status Examination: alert and oriented. Airway Examination: normal oropharyngeal airway and neck mobility. Respiratory Examination: clear to auscultation. CV Examination: normal. Prophylactic Antibiotics: The patient does not require prophylactic antibiotics. Prior Anticoagulants: The patient has taken no anticoagulant or antiplatelet agents except for NSAID medication. ASA Grade Assessment: II - A patient with mild systemic disease. After reviewing the risks and [...] and oxygen saturations were monitored continuously. The gastroscope was introduced through the mouth, and advanced to the third part of the duodenum. Small bowel enteroscopy was deemed necessary. The upper GI endoscopy was accomplished without difficulty. The patient tolerated the procedure well. Scope In: 7:18:05 AM Scope Out: 7:21:33 AM Total Procedure Duration Time 0 hours 3 minutes 28 seconds Findings: The Z-line was irregular and was found 40 cm from the incisors. Biopsies were taken with a cold forceps for histology. Verification of patient identification for the specimen was done. Estimated blood loss was minimal. Patchy mildly erythematous mucosa without bleeding was found in the gastric body. Biopsies were taken with a cold forceps for histology. Biopsies were taken with a cold forceps for histology. Biopsies were taken with a cold forceps for Helicobacter pylori testing. Verification of patient identification for the specimen was done. Estimated blood loss was minimal. Patchy mildly erythematous mucosa without active bleeding and with no stigmata of bleeding was found in the duodenal bulb. Biopsies were taken with a cold forceps for histology. Verification of patient identification for the specimen was done. Estimated blood loss was minimal. Impression: - Z-line irregular, 40 cm from the incisors. Biopsied. - Erythematous mucosa in the gastric body. Biopsied. - Erythematous duodenopathy. Biopsied. Recommendation: - Discharge patient to home. - Resume previous diet. - Continue present medications. - Await pathology results. Procedure Code(s): --- Professional --- 38734, Small intestinal endoscopy, enteroscopy beyond second portion of duodenum, not including ileum; with biopsy, single or multiple CPT copyright 2021 [employer]. All rights reserved. The codes documented in this report are preliminary and upon supervisor machine workers review may be revised to meet current compliance requirements. Bismark Montoya DO 11/17/2024 7:30:11 AM This report has been signed electronically. Number of Addenda: 0 Note Initiated On: 11/17/2024 7:07 AM 11/17/24729 Date _ Bismark Montoya DO Cosigner Signature: Date (if indicated) CC: Dr. Kevon Mackey DO; Bismark Montoya DO ~ Date Dictated: 11/17/24706 Date Transcribed: Nickel Plater: RF Signed [facility]06-16-2025 Consult note [facility] Medical Records Department [address] [place] [address] Pre-Anesthesia Evaluation 11/17/24 0646 MR#: [id number] Acct: [id number] Name: SRINATH PEPE Rep #:[id number] : 1960 63 From: Roby Maki MD PCP: Dr. Kevon Mackey DO Status:REG SDC Y Race: C Location: [place] [address]- ASA Classification* ASA Classification ASA Classification: 3 Assessment & Plan Anesthesia* Anesthesia Assessment Anesthesia Assessment: Discussed sedation and/or anesthesia options, risks, benefits, and alternatives with patient/parents/legal guardian/POA. Questions invited. The patient/parents/legal guardian/POA seems to understand and agrees to proceedwith anesthesia plan. Reviewed the physical assessment, medical history, allergy history and patient home medications list prior to surgery/procedure/anesthetic and documented any changes. Performed airway and anesthesia risk assessments. Anesthesia Type Anesthesia Type: MAC History Source History Obtained from:: Patient and Chart Anesthesia Focused Assessment* Temperature: 97.3 F Pulse Rate: 52 Blood Pressure: 154/91 Respiratory Rate: 16 Pulse Ox: 97 Oxygen Delivery Method: Room Air Airway Assessment Mouth opens: >3 cm Mallampati Score: III Teeth Condition: Caps/Crowns (Patient has several crowns. They are tight.) Neck Range of motion (ROM): Full ROM Labs Anesthesia Preop lab: CBC WBC 5.2 K/mm3 (4.4-11.0) 09/01/24 16:07 09/01/24 RBC 5.36 M/mm3 (4.6-6.2) 09/01/24 16:07 09/01/24 Hgb 15.7 g/dL (13.0-16.5) 09/01/24 16:07 09/01/24 Hct 45.6 % (40-54) 09/01/24 16:07 09/01/24 Plt Count 112 K/mm3 (150-450) L 09/01/24 16:07 09/01/24 CHEMISTRY Potassium 3.6 mmol/L (3.3-5.1) 10/03/24 10:05 10/03/24 Sodium 139 mmol/L (133-145) 10/03/24 10:05 10/03/24 BUN 25 mg/dL (4-19) H 10/03/24 10:05 10/03/24 Creatinine 0.99 mg/dL (0.70-1.20) 10/03/24 10:05 10/03/24 Glucose 126 mg/dL (70-99) H 10/03/24 10:05 10/03/24 TSH 1.220 uIU/mL (0.358-3.740) 02/29/24 09:47 02/03 12/25 COAG PT 14.7 SECONDS (11.7-14.9) 09/01/24 16:07 Pre-Assessment Diagnosis/Proposed Procedure Planned Operative Procedure(s): EGD Anesthesia History Anesthesia 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 When Was Last Pacemaker Check QUESTION #4 FULL TEXT: You/Your Family Experience fever (hyperthermia) with Anesthesia Last Oral Intake Last Oral intake: Last Oral Intake NPO since 00:00 11/17/24 06:30 Meds taken in AM with sips of Yes 11/17/24 06:30 water? Meds patient instructed to carvedilol 11/17/24 06:30 take am of surgery zetia hctz omeprazole valsartan PONV PONV - internet marketing consultant: PONV - internet marketing consultant Female Yes 11/13/24 14:50 HX of Motion Sickness No 11/13/24 14:50 HX of N/V After Surgery No 11/13/24 14:50 Non-Smoker Yes 11/13/24 14:50 Duration of Surgery greater No 11/13/24 14:50 than 60 minutes Number of Risk Factors 2 11/13/24 14:50 PONV Score Moderate Risk 11/13/24 14:50 Height & Weight Height & Weight: Anesthesia: Height & Weight Height 6 ft 4 in 11/17/24 06:30 Weight: 109 kg 11/17/24 06:30 Body Mass Index (BMI) 29.2 11/17/24 06:30 Respiratory Assessment Respiratory Assessment - internet marketing consultant: Respiratory Tract Infection Hx - internet marketing consultant Hx Respiratory Tract Infection No 11/13/24 14:50 STOP Sleep Apnea STOP Sleep Apnea - internet marketing consultant: STOP Sleep Apnea - internet marketing consultant Hx Hypertension Yes: CONTROLLED WITH MEDS 11/13/24 [...] than talking or can be heard through closeddoors)? Tobacco Use History Tobacco Use History - internet marketing consultant: Tobacco Use History - internet marketing consultant Tobacco Use Smoking Status Never smoker 11/13/24 14:50 Hx Tobacco Use No 11/13/24 14:50 Years Smoking Packs Smoked per Day Smoking Cessation Date was within the last 15 years Hx Smoking Cessation Date Hx Smoking Cessation Counseling Hematologic Medial History Hematologic Hx - internet marketing consultant: Hematologic Medical Hx - taper and floater Hx of Blood Transfusion No 11/13/24 14:50 Hx of Transfusion in last 3 No 11/13/24 14:50 Months Date of Last Transfusion (if within last 3 months) Ever experience any problems No 11/13/24 14:50 with transfusion(s)? Specify any problems Hx of Preganancy in last 3 N/A 11/13/24 14:50 Months Nurse Filling Out Transfusion [id number] 11/13/24 14:50 & Questions: Date: 11/13/24 11/13/24 14:50 Time: 14:51 11/13/24 14:50 Patient unable to answer at this time (ie. confused, unrespo /Reproduction History /Reproductive History - internet marketing consultant: /Reproductive Hx- internet marketing consultant Hx Now No 11/13/24 14:50 Gestational Age (in weeks): EDC: Hx Hx Para Hx Section SAB No 11/13/24 14:50 Active Medications Active Medications: Current Medications Generic Name Dose Route Start Last Admin Trade Name Freq PRN Reason Stop Dose Admin Lactated Ringer's 1,000 mls @ 15 mls/hr 11/17/24 06:15 11/17/24 06:32 IV 15 mls/hr .Q48H VICENTE Administration PFSH Medical History History of hiatal hernia History of echocardiogram Cardiology follow-up encounter CAD (coronary artery disease) Wears hearing aid Wears glasses Migraine headache Gastric reflux Non-smoker Palpitations Low back pain Dyslipidemia Urinary incontinence, functional Hypertension Erectile dysfunction Chronic migraine Prostate cancer Thrombocytopenia Alcohol abuse Arthritis Hiatal hernia GERD (gastroesophageal reflux disease) Alcoholic cirrhosis of liver Restless leg syndrome Home Medications ?Medication ?Instructions ?Recorded ?Last Taken ?Type multivitamin (Multiple Vitamins 1 ea PO DAILY 09/29/16 11/16/24 History tablet) rimegepant 75 mg disintegrating 75 mg PO ONCE PRN migr morelia headache 10/26/21 Unknown History tablet (Nurtec ODT) sumatriptan succinate 100 mg tablet 100 mg PO ONCE PRN migraine 10/26/21 Unknown History headache cholecalciferol (vitamin D3) 125 125 mcg PO QDAY 02/2811/16/24 History mcg (5,000 unit) tablet omeprazole 20 mg capsule,delayed 20 mg PO QDAY 4 11/17/24 History release vitamin B complex 1 cap PO QDAY 02/29/2411/16 History tadalafil 20 mg tablet 20 mg PO DAILY PRN sexual ac tivity 07/10/24 Unknown History carvedilol 25 mg tablet 25 mg PO BID #180 tabs 07/1811/17/24 Rx coenzyme Q10 400 mg capsule 400 mg PO QDAY 07/18/24 History lactobacillus combination no.4 3 3,000 mmu cells PO QD AY 07/18/24 11/16/24 History billion cell capsule (Probiotic) ezetimibe 10 mg tablet (Zetia) 10 mg PO QDAY #90 tabs 10/16/24 11/17/24 Rx hydrochlorothiazide 25 mg tablet 25 mg PO QDAY #90 tab s 10/16/24 11/17/24 Rx valsartan 320 mg tablet 320 mg PO QDAY #90 tabs 10/0211/17/24 Rx Allergy/AdvReac Type Severity Reaction Status Date / Time fluoxetine (From Prozac) Allergy Hives Verified 11/13/24 14:48 sertraline Allergy Rash Verified 11/13/24 14:48 amlodipine AdvReac Severe Swelling Verified 11/13/24 14:48 doxazosin AdvReac Weakness Verified 11/13/24 14:48 oxycodone AdvReac HICCUPS Verified 10/16/24 12:13 Family History Mother Arthritis Hypertension Father CAD (coronary artery disease) Heart disease Brother Cancer Liver Other Alcoholism Surgical History History of hernia surgery History of esophagogastroduodenoscopy (EGD) History of colonoscopy History of vasectomy History of toe surgery History of radical prostatectomy History of total left knee replacement History of cholecystectomy Social History Smoking Status: Never smoker alcohol intake: former year quit: 2008 substance use type: does not use caffeine: Yes Type: coffee Number of servings: 2 Review of Systems (Anesthesia) ROS Narrative System reviewed and no additional complaints, except as documented. 11/17/24 0651 hipolito BLAKE> Date _ Roby Maki MD Cosigner Signature: Date CC: ~ Signed [facility]06-16-2025 History and physical note [facility] Medical Records Department [address] [place] [address] History & Physical Exam 11/17/24 0641 MR#: [id number] Acct: [id number] Name: SRINATH PEPE SELIN Rep #:[id number] : 1960 63 From: Bismark Friend DO PCP: Dr. Kevon Mackey DO Status:[facility] Location: [place] [address] HPI - General General Date of Admission: 11/17/24 Date of Service: 11/17/24 Chief Complaint: Esophageal varices HPI Narrative SRINATH MY, is a 63 M who presents for esophageal varices screening. SRINATH PEPE, is a 63 M who presents to the office today for follow up. Previously established with Dr. Frye for chronic liver issues. PMH alcoholic cirrhosis of liver, history of alcohol abuse, thrombocytopenia d/t liver disease, GERD. Cessation of alcohol in 2008. Omeprazole taken for GERD, symptomsunder control. He is working hard with diet [...] but likely represents a cyst. A LEFT renalcycst is also shown. Small hiatal hernia. Atherosclerotic changes shown in the normal caliber aorta. Findingsconsistent with given history of cirrhosis with evidence of portal hypertension. 01.04.22 MRI abdomen w/wo contrast- Diffuse contour abnormality of liver consistent with cirrhotic changes. Severe splenomegaly. 11.20.22 US abdomen, Liver demonstrates heterogenous echogenicity with a lobulated border. A left renal cyst measures 2.6 x 2.8 x 2.3 cm. Spleen enlargedmeasures 17.8 x17.9 x 5.7. EGD, trace esophageal varices. No acute complaint. Patient quit alcohol about 15 years ago in 2008. 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 Kuo till now. Last blood work from January [address] abdomen and MRI reviewed. No recenthistory of GI bleed, ascites, jaundice or bleeding. Cirrhosis seems compensate 02.28.24- MELDna 9 OV 12.10.24- Pt well since last visit. Denies abdominal pain, changes in bowels, dizziness, confusion or swelling. No complaints today. OV 12.11.23 - MELDna 7 Abd Elastography 06/13/24 Liver stiffness measures 13.2 kPa compatible with F3-F4 (Moderate to severe liver fibrosis) Metavir score. OV 09/10/2024: MELD sodium score 8 from 09/01/2024. Patient had EGD on 07/22/2024. No acute complaint [facility] History History of hiatal hernia History of echocardiogram Cardiology follow-up encounter CAD (coronary artery disease) Wears hearing aid Wears glasses Migraine headache Gastric reflux Non-smoker Palpitations Low back pain Dyslipidemia Urinary incontinence, functional Hypertension Erectile dysfunction Chronic migraine Prostate cancer Thrombocytopenia Alcohol abuse Arthritis Hiatal hernia GERD (gastroesophageal reflux disease) Alcoholic cirrhosis of liver Restless leg syndrome Home Medications ?Medication ?Instructions ?Recorded ?Last Taken ?Type multivitamin (Multiple Vitamins 1 ea PO DAILY 09/29/16 11/16/24 History tablet) rimegepant 75 mg disintegrating 75 mg PO ONCE PRN migr morelia headache 10/26/21 Unknown History tablet (Nurtec ODT) sumatriptan succinate 100 mg tablet 100 mg PO ONCE PRN migraine 10/26/21 Unknown History headache cholecalciferol (vitamin D3) 125 125 mcg PO QDAY 02/2811/16/24 History mcg (5,000 unit) tablet omeprazole 20 mg capsule,delayed 20 mg PO QDAY 4 11/17/24 History release vitamin B complex 1 cap PO QDAY 02/29/2411/16 History tadalafil 20 mg tablet 20 mg PO DAILY PRN sexual ac tivity 07/10/24 Unknown History carvedilol 25 mg tablet 25 mg PO BID #180 tabs 07/1811/17/24 Rx coenzyme Q10 400 mg capsule 400 mg PO QDAY 07/18/24 History lactobacillus combination no.4 3 3,000 mmu cells PO QD AY 07/18/24 11/16/24 H istory billion cell capsule (Probiotic) ezetimibe 10 mg tablet (Zetia) 10 mg PO QDAY #90 tabs 10/16/24 11/17/24 Rx hydrochlorothiazide 25 mg tablet 25 mg PO QDAY #90 tab s 10/16/24 11/17/24 Rx valsartan 320 mg tablet 320 mg PO QDAY #90 tabs 10/0211/17/24 Rx Allergy/AdvReac Type Severity Reaction Status Date / Time fluoxetine (From Hypiosza) Allergy Hives Verified 11/13/24 14:48 sertraline Allergy Rash Verified 11/13/24 14:48 amlodipine AdvReac Severe Swelling Verified 11/13/24 14:48 doxazosin AdvReac Weakness Verified 11/13/24 14:48 oxycodone AdvReac HICCUPS Verified 10/16/24 12:13 Family History Mother Arthritis Hypertension Father CAD (coronary artery disease) Heart disease Brother Cancer Liver Other Alcoholism Surgical History History of hernia surgery History of esophagogastroduodenoscopy (EGD) History of colonoscopy History of vasectomy History of toe surgery History of radical prostatectomy History of total left knee replacement History of cholecystectomy Social History Smoking Status: Never smoker alcohol intake: former year quit: 2008 substance use type: does not use caffeine: Yes Type: coffee Number of servings: 2 ROS Constitutional Constitutional: Denies fatigue, fever(s), poor appetite, weight gain or weight loss Gastrointestinal Gastrointestinal: Denies belching, bloating, change in bowel habits, change in stool character, chewing difficulty, coffee ground emesis, constipation, cramping, diarrhea, dyspepsia, dysphagia, earlysatiety, excessive flatus, fecalincontinence, heartburn, hematemesis, hematochezia, hemorrhoids, loose stools, melena, nausea, odynophagia, rectal bleeding, tenesmus, vomiting or weight changes Vital Signs Vital Signs Vital Signs: 11/17/24 06:28 11/17/24 06:30 Temperature 97.3 F L Temperature Source Temporal Pulse Rate 52 L Respiratory Rate 16 Respiratory Pattern Normal Blood Pressure 154/91 H Blood Pressure Mean 112 Blood Pressure Source Monitor Blood Pressure Position Semi-Fowlers Blood Pressure Location Right Arm Pulse Ox 97 Oxygen Delivery Method Room Air Weight Weight: 240 lb 4.862 oz Body Mass Index (BMI) 29.2 Physical Exam Const alert, oriented x3, no apparent distress and healthy appearing General Appearance: cooperative GI normal to inspection, nondistended, normoactive bowel sounds, soft to palpation,non-tender and non-distended Percussion: normal to percussion Rectal Exam: deferred Assessment & Plan Assessment/Plan (1) Varices of esophagus determined by endoscopy: PLAN: Assessment and Plan Assessment and Plan (1) Alcoholic cirrhosis of liver: Status: Chronic Qualifiers: Ascites presence: without ascites Qualified Code(s): K70.30 - Alcoholiccirrhosis of liver without ascites Plan: Overall assessment seems compensated alcoholic cirrhosis with no recent featuresof GI bleed/variceal bleed, jaundice, ascites, hepatic hydrothorax or colopathy. Patient has chronic thrombocytopenia. Patient is physically active. Labs from September 01, 2024 reviewed with the patient. MELD sodium score 8, child score A. No acute issues. Abdominal ultrasound with elastography from June 28 shows median liver stiffness 13.2 compatible with F3 F4 moderate to severe liver fibrosis. Splenomegaly about 17.2 cm. No mass Labs from February 2024 showed viral hepatitis, autoimmune markers, HELEN, ceruloplasmin, ferritin and serologies in normal limit. Overall it seems the etiology is alcohol. Patient stated he has been diagnosed cirrhosis about 14 to15 years ago. Last triple phage abdomen MRI January 2022 reviewed with the patient does not show liver mass but seen by splenomegaly. Prior to that patient also had CT abdomen with IV contrast. Patient is status postcholecystectomy. Micronodular contour of liver suggestive of cirrhosis. Spleen reported enlarged. Portal vein patent. Pancreas no focal cystic or solid mass. Patient is vaccinated with hepatitis A and B. Follow-up in 4 (2) Varices of esophagus determined by endoscopy: Status: Acute Plan: EGD grade 2 esophageal varices, incompletely eradicated/banded. PHG. No gross lesion in D1. Repeat EGD in 3 months. Will schedule EGD. (3) Dyslipidemia: Status: Chronic Plan: Repeat fasting profile on 09/01 shows improvement in TC, LDL and triglyceride Orders: Orders CBC W/Diff, Automated 4 Months E78.5 - Hyperlipidemia, unspecified, I25.10 - Atherosclerotic heart disease of [place] coronary artery without angina pectoris,I85.00 - Esophageal varices without bleeding, K70.30 - Alcoholic cirrhosis of liver without ascites Comprehensive Metabolic Profil 4 Months E78.5 - Hyperlipidemia, unspecified, I25.10 - Atherosclerotic heart disease of [place] coronary artery without angina pectoris, I85.00 - Esophageal varices without bleeding, K70.30 - Alcoholic cirrhosis of liver without ascites Prothrombin Time w/INR 4 Months E78.5 - Hyperlipidemia, unspecified, I25.10 - Atherosclerotic heartdisease of [place] coronary artery without angina pectoris,I85.00 - Esophageal varices without bleeding, K70.30 - Alcoholic cirrhosis of liver without ascites CRP 4 Months E78.5 - Hyperlipidemia, unspecified, I25.10 - Atherosclerotic heart disease of [place] coronary artery without angina pectoris, I85.00 - Esophageal varices without bleeding, K70.30 - Alcoholic cirrhosis of liver without ascites AFP, Tumor Marker 4 Months E78.5 - Hyperlipidemia, unspecified, I25.10 - Atherosclerotic heart disease of [place] coronary artery without angina pectoris,I85.00 - Esophageal varices without bleeding, K70.30 - Alcoholic cirrhosis of liver without ascites 11/17/24 0643 Cosigner Signature (if applicable): CC: Dr. Kevon Mackey DO; Bismark Montoya, ~ Signed [facility]06-16-2025 [facility] Medical Records Department [address] [place] [address] History Physical Exam 11/17/24 0641 MR#: [id number] Acct: [id number] Name: SRINATH PEPE Rep #: [id number] : 1960 63 From: Bismark Montoya DO PCP: Dr. Kevon Mackey DO Status:[facility] Location: [place] [address] HPI - General General Date of Admission: 11/17/24 Date of Service: 11/17/24 Chief Complaint: Esophageal varices HPI Narrative SRINATH PEPE, is a 63 M who presents for esophageal varices screening. SRINATH PEPE, is a 63 M who [...] 2008. 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 Kuo till now. Last blood work from January [address] abdomen and MRI reviewed. No recent history of GI bleed, ascites, jaundice or bleeding. Cirrhosis seems compensate 02.29.24- MELDna 9 OV 05.13.24- Pt well since last visit. Denies abdominal pain, changes in bowels, dizziness, confusion or swelling. No complaints today. OV 12.11.23 - MELDna 7 Abd Elastography 06/13/24 Liver stiffness measures 13.2 kPa compatible with F3-F4 (Moderate to severe liver fibrosis) Metavir score. OV 09/10/2024: MELD sodium score 8 from 09/01/2024. Patient had EGD on 07/22/2024. No acute complaint [facility] Medical History History of hiatal hernia History of echocardiogram [...] (Multiple Vitamins 1 ea PO DAILY 09/29/16 11/16/24 Hi story tablet) rimegepant 75 mg disintegrating 75 mg PO ONCE PRN migraine headach e 10/26/21 Unknown History tablet (Nurtec ODT) sumatriptan succinate 100 mg tablet 100 mg PO ONCE PRN migraine Unknown History headache cholecalciferol (vitamin D3) 125 125 mcg PO QDAY 02/29/24 11/16/24 History mcg (5,000 unit) tablet omeprazole 20 mg capsule,delayed 20 mg PO QDAY 02/29/24 11/17/24 Hi story release vitamin B complex 1 cap PO QDAY 02/29/24 11/16/24 Hi story tadalafil 20 mg tablet 20 mg PO DAILY PRN sexual activity 07/10/24 Unknown History carvedilol 25 mg tablet 25 mg PO BID #180 tabs 07/18/24 Rx coenzyme Q10 400 mg capsule 400 mg PO QDAY 07/18/24 11/16/24 H istory lactobacillus combination no.4 3 3,000 mmu cells PO QDAY 07/18/24 0 11/16/24 History billion cell capsule (Probiotic) ezetimibe 10 mg tablet (Zetia) 10 mg PO QDAY #90 tabs 10/16/24 Rx hydrochlorothiazide 25 mg tablet 25 mg PO QDAY #90 tabs 10/16/24 Rx valsartan 320 mg tablet 320 mg PO QDAY #90 tabs 10/16/24 0 11/17/24 Rx Allergy/AdvReac Type Severity Reaction Status Date / Time fluoxetine (From Prozac) Allergy Hives Verified 11/13/24 14:48 sertraline Allergy Rash Verified 11/13/24 14:48 amlodipine AdvReac Severe Swelling Verified 11/13/24 14:48 doxazosin AdvReac Weakness Ve (more content not included)...[facility]05-15-2025 Evaluation note* Diagnosis Onset Date Resolution Status Admit Date Hypertension chronic October 16 12:05pm Varices of esophagus determi dago by endoscopy acute November 17, 2024 5:51am [facility] Work Phone: [phone] Evaluation note* Diagnosis Onset Date Resolution Status Admit Date Hypertension chronic October 16 12:05pm Varices of esophagus determi dago by endoscopy acute November 17, 2024 5:51am CAD (coronary artery disease) acute January 28, 2025 7:46am New onset atrial fibrillation acute January 28, 2025 7:46am Dyslipidemia chronic January 28, 2025 7:46am Hypertension chronic January 28, 2025 7:46am [facility] [employer] Work Phone: 1(437) 168-137105-15-2025 Evaluation note* Diagnosis Onset Date Resolution Status Admit Date Hypertension chronic October 16 12:05pm Varices of esophagus determi dago by endoscopy acute November 17, 2024 5:51am CAD (coronary artery disease) acute January 28, 2025 7:46am New onset atrial fibrillation acute January 28, 2025 7:46am Dyslipidemia chronic January 28, 2025 7:46am Hypertension chronic January 28, 2025 7:46am New onset atrial fibrillation acute January 29, 2025 1:03pm Alcoholic cirrhosis of liver chronic January 29, 2025 1:03pm Chronic migraine chronic January 032024 1:03pm Hypertension chronic January 29, 2025 1:03pm [facility] Work Phone: 1(438) 875-215405-15-2025 Evaluation note* Diagnosis Onset Date Resolution Status Admit Date Hypertension chronic October 16 12:05pm Varices of esophagus determined by endoscopy acute November 5:51am CAD (coronary artery disease) acute January 28, 2025 7:46am New onset atrial fibrillation acute January 28, 2025 7:46am Dyslipidemia chronic January 28, 2025 7:46am Hypertension chronic January 28, 2025 7:46am New onset atrial fibrillation acute January 29, 2025 1:03pm Alcoholic cirrhosis of liver chronic January 29, 2025 1:03pm Chronic migraine chronic January 032024 1:03pm Hypertension chronic January 29, 2025 1:03pm CAD (coronary artery disease) acute February 10, 2025 9:58am New onset atrial fibrillation acute February 10, 2025 9:58am Shortness of breath acute 2024 9:58am Dyslipidemia chronic February 9:58am Hypertension chronic February 9:58am [facility] [employer] [facility] Work Phone: 1(273) 251-230102-18-2025 Evaluation note* Diagnosis Onset Date Resolution Status Admit Date Varices of esophagus determined by endoscopy acute July 22, 2024 10:35am Cirrhosis deleted July 22, 2024 10:35am Varices of esophagus determined by endoscopy acute September 8:08am Alcoholic cirrhosis of liver chronic September 10, 2024 8:08am Dyslipidemia chronic September 10, 8:08am Hypertension chronic October 16 12:05pm Varices of esophagus determined by endoscopy acute November 5:51am [facility] Work Phone: 1(112) 200-771502-18-2025 [facility] Medical Records Department [address] [place] [address] History Physical Exam 07/22/24 1224 MR#: [id number] Acct: [id number] Name: SRINATH PEPE Rep #: [id number] : 1960 63 From: Bismark Friend DO PCP: Dr. Kevon Mackey, DO Status:[facility] Location: [place] [address] HPI - General General Date of Admission: [...] 2008. 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 Kuo till now. Last blood work from January [address] abdomen and MRI reviewed. No recent history of GI bleed, ascites, jaundice or bleeding. Cirrhosis seems compensate 02.29.24- MELDna 9 OV 12.03.27- Pt well since last visit. Denies abdominal pain, changes in bowels, dizziness, confusion or swelling. No complaints today. [facility] Medical History (Updated 07/22/24 @ 12:27 by [...] total left knee repl (more content not included)...[facility]02-14-2025 Evaluation note* Diagnosis Onset Date Resolution Status Admit Date Hypertension chronic July 1:23pm Varices of esophagus determined by endoscopy acute July 22, 2024 10:35am Cirrhosis deleted July 22, 2024 10:35am Varices of esophagus determined by endoscopy acute September 8:08am Alcoholic cirrhosis of liver chronic September 10, 2024 8:08am Dyslipidemia chronic September 10, 025 8:08am [facility] Work Phone: 1(175) 904-924312-10-2024 Evaluation note* Diagnosis Onset Date Resolution Status Admit Date Alcoholic cirrhosis of liver chronic May 13, 2024 8:06am Dyslipidemia chronic May 8:06am Hypertension chronic July 1:23pm Cirrhosis acute July 22, 2024 10:35am Varices of esophagus determined by endoscopy acute July 22, 2024 10:35am [facility] Work Phone: 1(834) 535-246209-03-2024 NoteHNO ID: [id number] Author: MATEO SAWANT APRN.JOYCE Service: ? Author Type: Nurse Practitioner Type: [...] which included preparing to see the patient, [id number] patient care, completing clinical documentation, obtaining and/or reviewing separately obtained history, performing a medically appropriate examination, counseling and educating the patient/family/caregiver, and care coordination (not separately reported). [facility]09-03-2024 History of Present illness Narrative* Mateo Sawant APRN.CNP - 02/05/2024 9:47 AM EDT Orthopaedic Office [...] which included preparing to see the patient, [id number] patient care, completing clinical documentation, obtaining and/or reviewing separately obtained history, performing a medically appropriate examination, counseling and educating the patient/family/caregiver, and care coordination (not separately reported). [facility] History of Present illness Narrative* Nelia Mazariegos [...] PATIENT PRESENTS WITH AN IMPLANTABLE OR ATTACHED [employer] DIRECTOR: No RADIOLOGY DEPARTMENT: General X-ray: Exam(s) Completed: Lower Extremity X- Ray(s): Knee, AP / Lat / Merchant Left and Wt. Bearing PERIPHERAL IV DATA: Not applicable SIGNED BY: Abdifatah Alfonso February 05, 2024 9:08 AM documented in this encounterBlanchard [facility]09-[facility]-2024 NoteHNO ID: [id number] Author: NELIA MAZARIEGOS Tech Service: ? Author Type: Career Agent Type: Progress Notes Filed: 02/05/2024 09:09 Note [...] PATIENT PRESENTS WITH AN IMPLANTABLE OR ATTACHED [employer] DIRECTOR: No RADIOLOGY DEPARTMENT: General X-ray: Exam(s) Completed: Lower Extremity X-Ray(s): Knee, AP / Lat / Merchant Left and Wt. Bearing PERIPHERAL IV DATA: Not applicable SIGNED BY: Abdifatah Alfonso February 05, 2024 9:[address]26-2023 NoteHNO ID: [id number] Author: Mateo Sawant APRN.JOYCE Service: ? Author Type: Nurse Practitioner Type: [...] shortness of breath Mateo Sawant APRN.JOYCE [facility] History of Present illness Narrative* Alison Alexander, RT(R) - 02/27/2023 8:20 AM EDT Radiology [...] BY: RT Daisy(R) February 27, 2023 8:16 AM documented in this encounterBlanchard [facility]09-26-2023 NoteHNO ID: [id number] Author: Alison Alexander RT(R) Service: ? Author [...] BY: RT Daisy(R) February 27, 2023 8:16 AMCrystal Clinic Orthopedic [id number] History of Present illness Narrative* Mateo Sawant 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 - 01/09/2023 11:14 AM EDT Post-op Office [...] Sawant APRN.CNP Orthopaedic Surgery documented in this encounterBlanchard [facility]08-[facility]-20[facility] History of Present illness Narrative* Alison Alexander [...] 09, 2023 11:09 AM documented in this encounterBlanchard [facility]07-20-2023 History of Present illness Narrative* Mateo Sawant APRN.CNP - 12/21/2022 9:36 AM EDT Srinath Pepe returns for repeat incision check and ROM check. He is now 4 outs from revision left total knee. He reports overall he is doing much better. He is only taking 1-2 Tramadol in a day. He is working outpatient PT at [employer]. He has no concerns today. Physical exam [...] Sawant APRN.JOYCE Orthopaedic Surgery documented in this encounterBlanchard Valley [facility]07-14-2023 Miscellaneous Notes* Telephone Encounter - Nelia Duenas [...] Thomas). Pt verbalized understanding. documented in this encounterBlanchard Valley [facility]07-10-2023 Miscellaneous Notes* Telephone Encounter - Nelia Duenas RN - 12/11/2022 9:01 AM EDT Ramos, PT from [facility] calling. Ph. [phone] Asking if there are any protocols, restrictions, [...] increasing ROM, verbalized understanding. documented in this encounterBlanchard Valley [facility]07-06-2023 History of Present illness Narrative* Mateo Sawant APRN.CNP - 12/07/2022 11:11 AM EDT Post-op Office Visit Srinath Pepe 61 year old December 07, 2022 11:46 AM Surgery Date: 11/22/22 History: Srinath Pepe Is now 2 weeks out from S/P Revision Left TKA. Post-operative course has been without complication. No readmission/complications Subjective: Patient reports decreasing pain. Overall is doing well. Crutches ambulatory aid [place] and wants to switch to tramadol for [...] Sawant APRN.JOYCE Orthopaedic Surgery documented in this encounterBlanchard [facility]07-06-2023 History of Present illness Narrative* Greer Meredith [...] 07, 2022 10:53 AM documented in this encounterBlanchard Valley [facility]06-30-2023 Miscellaneous Notes* Telephone Encounter - Madelin Caruso [...] notify patient. Madelin Caruso documented in this encounterBlanchard Valley [facility]06-29-2023 Miscellaneous Notes* Telephone Encounter - Nelia Duenas RN - 11/30/2022 8:43 AM EDT Pt calling. S/p revision of L TKA. Stating he has a rash on his back, possibly from the [place]. Spoke with pt, told him the rash could be from the doxycycline. Advised to take benadryl as directed on the bottle and that if the rash gets worse, stop the doxy and call us. Pt verbalized understanding. [facility] History of Past illness Narrative* Problem Noted Date Resolved Date Aseptic loosening of prosthetic knee, initial en counter 11/22/2022 11/23/2022 Arthritis of knee, left 06/28/2015 06/28/19 16 Arthritis of left knee 11/11/2013 6 documented as of this encounter (statuses as of 11/28/2022) [facility] of Past illness Narrative* Problem Noted Date Resolved Date Aseptic loosening of prosthetic knee, initial en counter 11/22/2022 11/23/2022 Arthritis of knee, left 06/28/2015 06/28/19 16 Arthritis of left knee 11/11/2013 6 documented as of this encounter (statuses as of 11/30/2022) [facility] of Past illness Narrative* Problem Noted Date Resolved Date Aseptic loosening of prosthetic knee, initial en counter 11/22/2022 11/23/2022 Arthritis of knee, left 06/28/2015 06/28/19 16 Arthritis of left knee 11/11/2013 6 documented as of this encounter (statuses as of 12/01/2022) [facility] of Past illness Narrative* Problem Noted Date Resolved Date Aseptic loosening of prosthetic knee, initial en counter 11/22/2022 11/23/2022 Arthritis of knee, left 06/28/2015 06/28/19 16 Arthritis of left knee 11/11/2013 6 documented as of this encounter (statuses as of 12/07/2022) [facility] of Past illness Narrative* Problem Noted Date Diagnosed Date Resolved Date Aseptic loosening of prosthe tic knee, initial encounter 11/22/2022 11/23/2022 Arthritis of knee, left 06/28/201506/05 Arthritis of left knee 11/11/201306/28 documented as of this encounter (statuses as of 12/11/2022) [facility] of Past illness Narrative* Problem Noted Date Diagnosed Date Resolved Date Aseptic loosening of prosthe tic knee, initial encounter 11/22/2022 11/23/2022 Arthritis of knee, left 06/28/201506/05 Arthritis of left knee 11/11/201306/28 documented as of this encounter (statuses as of 12/15/2022) [facility] of Past illness Narrative* Problem Noted Date Diagnosed Date Resolved Date Aseptic loosening of prosthe tic knee, initial encounter 11/22/2022 11/23/2022 Arthritis of knee, left 06/28/201506/05 Arthritis of left knee 11/11/201306/28 documented as of this encounter (statuses as of 12/21/2022) [facility] of Past illness Narrative* Problem Noted Date Diagnosed Date Resolved Date Aseptic loosening of prosthe tic knee, initial encounter 11/22/2022 11/23/2022 Arthritis of knee, left 06/28/201506/05 Arthritis of left knee 11/11/201306/28 documented as of this encounter (statuses as of 12/29/2022) [facility] of Past illness Narrative* Problem Noted Date Diagnosed Date Resolved Date Aseptic loosening of prosthe tic knee, initial encounter 11/22/2022 11/23/2022 Arthritis of knee, left 06/28/201506/05 Arthritis of left knee 11/11/201306/28 documented as of this encounter (statuses as of 01/09/2023) [facility] Note ORIGINAL EXAMINATION: COMPLETE ABDOMINAL ULTRASOUND 11/20/2022 [...] Sign Date: 11/20/2022 1:52:51 PM Ordering Provider: [facility]06-19-2023 Note ORIGINAL EXAMINATION: COMPLETE ABDOMINAL [...] Sign Date: 11/20/2022 1:52:51 PM Ordering Provider: [facility]06-05-2023 Instructions* Patient Instructions* Loulou Taylor PA-C - 11/06/2022 9:08 AM EDT PATIENT PREOPERATIVE INSTRUCTIONS [facility]: [phone] -- [address] [facility] [address]. Please read below carefully for your personalized [...] Advance Directive, please fax a copy to [phone] or email to for it to be [...] your chart that day. documented in this encounterBlanch[facility]06[facility] History and physical note * Loulou Taylor [...] manage symptoms. Procedure scheduled on 11/22/2022 at [facility] REVIEW OF SYSTEMS: General: No weight loss, malaise or fevers. Neurological: Positive for: headaches (migraines - on Nurtec PRN). Negative for: seizures, TIA and strokes. Respiratory: No history of current cough or dyspnea, or pneumonia in the past 6 weeks. No history of respiratory/pulmonary symptoms or problems. Cardiovascular: Positive for: hypertension Negative for: arrhythmia, atrial fibrillation, CHF, DVT/PE, hyperlipidemia, recent [place] and murmur/valvular heart disease. GI: +Splenomegaly Positive [...] Hematology: +Leukopenia - follows with heme/onc at [facility] annually, Dr. Asencio, last visit 06/09/2022 Positive [...] 430 QTC Calculation (Bazett) 443 Calculated P [place] 49 Calculated R [place] -23 Calculated T [place] 25 Impression NORMAL SINUS RHYTHM NORMAL ECG No results found for this or any previous visit (from the past 99385 hour(s)). Assessment Patient has the following medical conditions which may affect heatl-operative course: Migraine without aura and without status [...] CBC pending. Pt follows with heme/onc at [facility] annually, Dr. Asencio, last visit06/09/22. Thrombocytopenia (HCC) [...] have a large neck STOP-Bang Score: 3 CTZ7YV1-LDCf Score: Hypertension history: Yes CSV5NE3-TNUl Score: 1 ASA Class: 3 ANESTHESIA FINDINGS: [...] 12:03 PM PAGER/CONTACT #: documented in this encounterBlanch[facility] History of Present illness Narrative* Rao Thomas [...] will plan to do this here at [facility]. I spent a total of approximately 25 minutes on the date of the service which included preparing to see the patient, toeq-oc-ncie patient care, completing clinical documentation, obtaining and/or reviewing separately obtained history, performing a medically appropriate examination, counseling and educating the patient/family/caregiver, ordering medications, tests, or procedures, independently interpreting results (not separately reported), communicating results to the patient/family/caregiver, and care coordination (not separately reported). Rao Thomas MD Orthopaedic Surgery documented in this encounterBlanchard Valley [facility]05-[facility] Miscellaneous Notes* Telephone Encounter - Tiffanie Stephenson - 10/04/2022 9:25 AM EDT Patient accepted sooner appointment. * Telephone Encounter - Carrie Patel - 10/04/2022 8:45 AM EDT You can offer him 10-10-2022 or 10-12-2022 at 12:30 pm either day. Thanks. Carrie * Telephone Encounter - Tiffanie Stephenson - 10/04/2022 7:24 AM EDT Definitely! Team--can we please get in sooner? Thank you! Daniel Please advise where we could get this patient in sooner with . Thanks! documented in this encounterBlanch[facility]05[facility] History of Present illness Narrative* Ge Maguire [...] satisfaction. This note was partially generated using MedAware voice recognition system and as such may contain grammatical or word errors Ge Maguire MD, PhD documented in this encounterBlanchard Valley [facility]05-[facility] History of Present illness Narrative* Courtney Arndt, RT(R) - 10/02/2022 2:00 PM EDT Radiology [...] 02, 2022 1:50 PM documented in this encounterBlanchard Valley [facility]09-[facility] Evaluation + Plan note Extracted from: Title:Clinical Document Author:EDILBERTO FRYE Date:02/24/22 [facility] ADMISSION HISTORY AN D PHYSICIAL CHIEF COMPLAINT: HISTORY OF PRESENT ILLNESS: REVIEW OF SYSTEMS: ACTIVE PROBLEMS: (26) Bronchitis (75033394) Elevated PSA (9425290488) GERD without esophagitis (0960970526) Hallux rigidus (429673623) Hypertension (59415549) Liver disease due to alcohol (5545G22P-[id number]) Migraines (94186376) Muscle spasm of back ([id number]) Need for hepatitis C screening test (189158943) Need for influenza vaccination (566007079) Need for vaccination (3364462508) Palpitations (955772431) Preop examination (967367018) Prostate cancer -- [facility] 04/2021 PSA >10 at diagnosis now <0.05 (3758816375) Recovering alcoholic in remission ([id number]) Screening for colon cancer (660020459) Screening for diabetes mellitus (364473916) Screening for ischemic heart disease (840983238) Screening for prostate cancer (153303337) Suspected sleep apnea (40920382) Thrombocytopenia (9999049248) Tinnitus (671031198) Urinary incontinence, functional (798856722) Well adult exam (956120922) Alcoholic cirrhosis of liver Active (3809929340) History of alcohol abuse Active (0786343503) MEDICATIONS: Active Inpt Meds: None Active PRN Meds: None One Time Meds: None Active IV Meds: Lactated Ringers Infusion 1,000 mL (LR 1,000 mL) Start: 02/24/22 8:20:00 EDT, Rate: 50 mL/hr, 02/24/22 8:20:00 EDT ALLERGIES: (3) oxyCODONE PROzac sertraline FAMILY HISTORY: SOCIAL HISTORY: PHYSICAL EXAM: VITALS: VvncodDidfXNXdxjaAROdT4NON4HvoeZp(kg) 02/24 08:1536.0183/780469538VF75/73729.1 24 Hr Tmax: 36.0 at 02/24 08:15 [...] Date:03/09/2022 09:30:00 AM Scheduled Provider:MARK SMITH DO Location:[facility] Appointment Type:PC OV Appointment Date:06/09/2022 01:00:00 PM Scheduled Provider:LENARD ASENCIO MD Location:[facility]M [facility]C Appointment Type:HEM ONC OV Follow Up Appointment Date:07/04/2022 09:30:00 AM Scheduled Provider:MARK SMITH DO Location:[facility] Appointment Type:PC OV Appointment Date:07/24/2022 11:20:00 AM Scheduled Provider:ANA VILLA MD Location:UROLOGY Appointment Type:URO OV Future Scheduled Tests Laboratory* Basic Metabolic Panel 07/19/22 * Prostate Specific Antigen 07/19/22 * Complete Blood Count 04/29/21 [facility] 09-23-2022 Hospital Discharge instructions Patient [...] until you are awake and alert. Take zowx-btj-zarwxjc and prescription medicines only as told by [...] 03/11/2014 Document Revised: 05/03/2018 Document Reviewed: 09/09/2016 [employer] Patient Education 2020 [employer]. 02/24/2022 09:51:34 Esophagogastroduodenoscopy, Care After (54665) Esophagogastroduodenoscopy, Care After Refer to this sheet [...] 05/07/2013 Document Revised: 10/26/2016 Document Reviewed: 04/13/2016 [employer] Interactive Patient Education 2019 [employer]. 02/24/2022 09:51:28 Colonoscopy, Adult Colonoscopy, Adult A [...] including vitamins, herbs, eye drops, creams, and mbur-pfp-gntxaxk medicines. Any problems you or family members [...] 05/18/2001 Document Revised: 03/13/2018 Document Reviewed: 08/01/2016 [employer] Patient Education 2020 [employer]. Follow Up Care 02/08/2022 14:18:14 With:EDILBERTO FRYE MD Address: [address] [phone] When: Unknown Comments:Results of biopsy pathology will be called to you. [facility] 09-23-2022 Summary of episode note Discharge Instructions Thank you for allowing [facility] to assist you with your healthcare needs. The following is importantdischarge information regarding your hospital visit. Your Care Team MARK SMITH DO What to do next Scheduled Follow-Up Appointments Appointment Type When With Where Contact InformationPC OV 03/09/2022 09:30 AM EDMARK NIETO [address] [phone] HEM ONC OV Follow Up 06/09/2022 01:00 PM LENARD ARELLANO MD [facility] PC OV 07/04/2022 09:30 AM MARK RAO DO [address] [phone] URO OV 07/24/2022 11:20 AM ANA FALLON MD [facility] Follow Up Appointments Follow Up with EDILBERTO FRYE MD When Why: Results of biopsy pathology will be called to you. Where: [address] [phone] The Following Activity and Diet Have Been [...] until you are awake and alert. Take obsw-exx-pokhafd and prescription medicines only as told by [...] 03/11/2014 Document Revised: 05/03/2018 Document Reviewed: 09/09/2016 [employer] Patient Education 2020 [employer] Esophagogastroduodenoscopy, Care After Refer to this sheet [...] 05/07/2013 Document Revised: 10/26/2016 Document Reviewed: 04/13/2016 [employer] Patient Education 2019 [employer]. Colonoscopy, Adult A colonoscopy is an exam [...] including vitamins, herbs, eye drops, creams, and yfri-nkh-foxwuzh medicines. Any problems you or family members [...] 05/18/2001 Document Revised: 03/13/2018 Document Reviewed: 08/01/2016 [employer] Patient Education 2020 [employer] Additional Information VACCINATE! IT SAVES LIVES! Members of the community who have not yet received the COVID-19 vaccine and would like to receive it can visit one of [facility] vaccine clinics. There are many vaccine clinic locations within the [facility]. For locations and available times, please visit [email or web address] It is important to note that some COVID mobile vaccine clinics are held outdoors and may be canceled in rainy or stormy conditions. To learn more about pediatric vaccinations (ages 5-11), we invite you to visit the [facility] webpage. [email or web address] [email or web address].htmlTo learn more about the COVID-19 vaccine, we invite you to visit the [employer] website for a list of frequently asked questions. [email or web address] _[email or web address]-Questions.pdf [facility] Patient Portal Access Instructions: Stay connected with your healthcare team and access your personal medical information anytime with the [facility] Patient Portal.If you would like a full copy of your medical records, please contact the [facility] Medical Records Department, Sunday through Sunday between 8a.m. and 4:30p.m. Please follow the directions below to access the portal: 1.Access the email account you provided upon registration to the hospital.2.Look for an invitation email from [facility].3.Open the email and access the invitation link: Accept Invitation to [facility]4.Fill in the required loyd to create your account. Sign into [email or web address] with your username and password that you [...] you will allow to register on the [facility] Patient Portal for access to your information. You can also access the [facility] Patient Portal on the Car in the Cloud timmy. Simply click on Health Records under [employer] and then click on the [facility] logo. HOW TO SAFELY DISPOSE OF PRESCRIPTION [...] Call your local pharmacy or go to [email or web address] to find one close to you.3.Make use of household items: Use cat litter or old coffee grounds to dispose medications if other options arenot available. Mix your drugs with these household products, seal them in an airtight container andthrow it into the garbage. Call [facility]: [phone] to be sure your drugs can be [...] Sedation, Adult, Care After Esophagogastroduodenoscopy, Care After (63678) Colonoscopy, Adult Medication Leaflets My discharge plan and instructions have been reviewed and explained to me and IMY DANIEL Junderstand my current condition and have read and understand these discharge instructions. I have received a written copy of the plan/instructions. If I have questions, I am aware that I should contact my doctor. 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: Date/Time: Relationship to Patient: Witness Name/Signature: Date/Time: [facility]09-23-2022 Anesthesiology Consult note Patient: SRINATH PEPE Age: 61 years Sex: Male : 1960 Associated Diagnoses: None Author: GE ESCOBAR APRN-WOOD HEEL ATTACHER Assessment Postanesthesia assessment Vitals: Vital signs from [...] by GE ESCOBAR on 02/24/2022 09:44 AM [facility]09-23-2022 Note [facility] ADMISSION HISTORY AND PHYSICIAL CHIEF COMPLAINT: HISTORY OF PRESENT ILLNESS: REVIEW OF SYSTEMS: ACTIVE PROBLEMS: (26) Bronchitis (11840812) Elevated PSA (3659552876) GERD without esophagitis (2457641172) Hallux rigidus (042829898) Hypertension (01229115) Liver disease due to alcohol (5216T36N-ZAJ9-7480-2M87-E0F5404O357Q) Migraines (11643122) Muscle spasm of back (S337634N-A867-1S2B-D721-782EW5525367) Need for hepatitis C screening test (515875414) Need for influenza vaccination (398433940) Need for vaccination (1946597281) Palpitations (877050181) Preop examination (489375983) Prostate cancer -- [facility] 04/2021 PSA >10 at diagnosis now <0.05 (9878751246) Recovering alcoholic in remission (78H8025C-021O-90M9-458I-E99165801858) Screening for colon cancer (209581338) Screening for diabetes mellitus (117241462) Screening for ischemic heart disease (766692965) Screening for prostate cancer (343363239) Suspected sleep apnea (33496801) Thrombocytopenia (5088512313) Tinnitus (750436923) Urinary incontinence, functional (312565393) Well adult exam (235848251) Alcoholic cirrhosis of liver Active (4888065190) History of alcohol abuse Active (1734351456) MEDICATIONS: Active Inpt Meds: None Active PRN Meds: None One Time Meds: None Active IV Meds: Lactated Ringers Infusion 1,000 mL (LR 1,000 mL) Start: 02/24/22 8:20:00 EDT, Rate: 50 mL/hr, 02/24/22 8:20:00 EDT ALLERGIES: (3) oxyCODONE PROzac sertraline FAMILY HISTORY: SOCIAL HISTORY: PHYSICAL EXAM: VITALS: KmtybcQpsfDCMkvguVQXjG2PAZ8KufyNd(kg) 02/24 08:1536.0183/573266528PC07/71719.1 24 Hr Tmax: 36.0 at 02/24 08:15 [...] EDILBERTO FRYE MD on 02/24/2022 09:29 AM [facility]09-23-2022 Anesthesiology Consult note Patient: SRINATH PEPE Age: 61 years Sex: Male : 1960 Associated Diagnoses: None Author: GE ESCOBAR APRN-WOOD HEEL ATTACHER Preoperative Information Time of last food or [...] cirrhosis of liver Active / SNOMED CT 0131169624 / Confirmed Bronchitis / SNOMED CT 92622714 / Confirmed Suspected sleep apnea / SNOMED CT 18873646 / Confirmed Urinary incontinence, functional / SNOMED CT 160970454 / Confirmed GERD without esophagitis / SNOMED CT 6104376533 / Confirmed Hallux rigidus / SNOMED CT 083447074 / Confirmed History of alcohol abuse Active / SNOMED CT 7056936510 / Confirmed Hypertension / SNOMED CT 81406314 / Confirmed Liver disease due to alcohol / SNOMED CT 0456F20H-NTY0-2351-5D19-A4X4541K371T / Confirmed Prostate cancer -- [facility] 04/2021 PSA >10 at diagnosis now <0.05 / SNOMED CT 4416799189 / Confirmed Migraines / SNOMED CT 19104763 / Confirmed Muscle spasm of back / SNOMED CT V952203V-M598-1P7R-C570-330GC4296775 / Confirmed Need for influenza vaccination / SNOMED CT 468638640 / Confirmed Palpitations / SNOMED CT 078032146 / Confirmed Well adult exam / SNOMED CT 492129094 / Confirmed Screening for ischemic heart disease / SNOMED CT 653890729 / Confirmed Screening for diabetes mellitus / SNOMED CT 376598422 / Confirmed Screening for colon cancer / SNOMED CT 716044798 / Confirmed Screening for prostate cancer / SNOMED CT 952322438 / Confirmed Preop examination / SNOMED CT 052613676 / Confirmed Thrombocytopenia / SNOMED CT 7898700898 / Confirmed Elevated PSA / SNOMED CT 1416968003 / Confirmed Recovering alcoholic in remission / SNOMED CT 20K6994Q-391L-31D8-065X-L99066885340 / Confirmed Need for vaccination / SNOMED CT 2895093026 / Confirmed Need for hepatitis C screening test / SNOMED CT 705183377 / Confirmed, Active Problems (26) Bronchitis Elevated [...] Active Histories Past Medical History: Active Hypertension (45941815) Liver disease due to alcohol (9832P13S-EMA8-9730-5C61-D1W0180L834W) Recovering alcoholic in remission (10R6724F-115S-34G0-738X-X77667648197) Muscle spasm of back (D158950I-G624-7U5F-Z629-118PT3155834) Hallux rigidus (650170977) Comments: 04/03/2016 EDT 13:44 EDT - Molly Coreas RN Right foot Resolved Thrombocytopenia (1397365932): Resolved. Hiatal hernia (0OFSH868-81P4-59RV-V6OS-XH792NQJ0BZ7): Resolved. GERD (gastroesophageal reflux disease) (94VCQ5J3-90W1-1001-HV1Q-CN166YO59XL0): Resolved. Arthritis (27ZF1252-3R0Y-10N3-5Y1Y-SDV7L043O559): Resolved. Family History: Liver cancer Brother Heart disease Father Arthritis Mother HTN - Hypertension Mother CAD - Coronary artery disease Father Aneurysm Mother Father Procedure history: Prostatectomy (551400386) in the month of 05/2021 at 60 Years. Robot assisted laparoscopic radical prostatectomy (9597297572) on 04/29/2021 at 60 Years. Biopsy of prostate (023496393) in the month of 04/2021 at 60 Years. Biopsy of prostate (108023726) on 04/06/2021 at 60 Years. Toe (10629873) in 2017 at 56 Years. Comments: 04/21/2021 7:47 Valerie Keller RN right great toe Total knee replacement (0231489808) in the month of 06/2015 at 54 Years. Comments: 04/03/2016 13:36 JANETH IBRAHIM Left knee Cholecystectomy (97536480) in 1994 at 34 Years. Vasectomy (84246590) in 1987 at 27 Years. Inguinal hernia, bilateral (L32S89C3-00A2-2YC3-Y286-UX3X9T5799N4) in 1977 at 17 Years. Comments: 04/21/2021 7:45 Valerie Keller RN x 2 1994 and 1977 Arthroscopy of knee (412934713). Comments: 04/03/2016 13:36 JANETH IBRAHIM Left knee x2 Social History Social & Psychosocial Habits Alcohol 12/10/2018 Use: Never 1Risk Assessment: Denies Alcohol Use Employment/School 04/27/2021 Status: Employed Description: [employer] Substance Abuse 12/10/2018 Use: Never 1Risk Assessment: Denies Substance Abuse Tobacco 11/26/2019 Tobacco Use: Never (less than 100 in l Exposure to Tobacco Smoke Lives in non-smoking home 05/06/2021isk Assessment: Denies Tobacco Use Exercise 01/09/2022 Times [...] Height 193.0 cm Admission Weight 109.1 kg [place] Body Weight 86.76 kg BSA Admission 2.4 [...] Surgeon SN - CAt - Role Performed Spice Blender 1 SN - CAt - Role Performed WOOD HEEL ATTACHER SN - CAt - Role Performed Community Development Planner 02/24/2022 8:26 EDT Lactated Ringers Injection Begin [...] EDT Designated Person #1 We May Share CARLOS [phone] Designated Person #1 Relationship Spouse Height 193.0 cm Admission Weight 109.1 kg [place] Body Weight 86.76 kg BSA Admission 2.4 [...] Method Explanation, Printed materials Preferred Written Language Monegasque Preferred Spoken Language Monegasque Information Given by Patient Patient's Current Physicians [...] Last 30 Days Yes Travel Where Within [facility](s) Psychiatric N/A Personal Devices, Patient Valuables None Admission Note-Nursing Procedure/Therapy Intake . Assessment and Plan [place] [employer] Anesthesiologists (ASA) physical status classification: Class III. Anesthetic Preoperative Plan Anesthetic technique: MAC. Informed consent: signed by patient. Digitally Signed by GE ESCOBAR on 02/24/2022 09:25 AM [facility]08-04-2022 History of Present illness Narrative * Kyara Loya, CORE CLEANER - 01/05/2022 9:30 AM EDT RADIOLOGY SERVICE [...] DIAGNOSTIC CT PERFORMED: No IV SITE: Ambulatory: NM only - direct IV injection in the Right hand POST EXAM PIV STATUS: Not applicable PROCEDURE TYPE: NM INJECT: 3 phase bone scan . 21.6 mCi Tc99m MDP. No other medications given.. ADMINISTRATION TIME: 9:20 PATIENT DISCHARGED TO: Ambulatory patient, left AR department area. A Diagnostic radioactive procedure has taken place, with no further precautions necessary other than routine body substance precautions. More information regarding radiation safety can be found usingAddys link: [email or web address] [email or web address]%20Medicine%[email or web address] SIGNATURE: GISELE Velasquez PATIENT NAME: Srinath Pepe DATE: January 05, 2022 TIME: 10:39 AM PAGER/CONTACT #: documented in this [facility]Bl[facility] History of Present illness Narrative* Suzette Paul PA-C - 12/30/2021 1:14 PM EDT Associated Order(s): Large Joint Arthro/Inj: L knee joint Post-Procedure Diagnose(s): Knee swelling; Pain due to internal orthopedic prosthetic devices, implants and grafts, initial encounter ([facility]); S/P total knee arthroplasty, left Mr. Srinath Pepe presents today for left knee aspiration. He has persistent knee effusion andpain with the presence of a total joint replacement. Fluid will be sent for synovasure analysis. Large Joint Arthro/Inj: L knee joint Informed Consent Consent Obtained: Verbal Biggers Protocol A moment to CARE was completed. [...] applicable Suzette Paul PA-C documented [facility] History of Present illness Narrative* Ge Maguire [...] satisfaction. This note was partially generated using [employer] voice recognition system and as such may contain grammatical or word errors Ge Maguire MD documented in this encounterBl[facility] History of Present illness Narrative* Courtney Arndt, RT(R) - 12/28/2021 3:00 PM EDT Radiology [...] 28, 2021 3:06 PM documented in this encounterBlanch[facility] Hospital Discharge instructions Patient Education 11/07/2021 14:05:02 Dizziness, Uncertain Cause Dizziness (Uncertain Cause) Dizziness is a common symptom. It may be described as lightheadedness, spinning, or feeling like you are going to faint. Dizziness can have many causes. Be sure to tell the healthcare provider about: All medicines you take, including prescription, haip-ilk-aagiofs, herbs, and supplements Any other symptoms you [...] Chest, arm, neck, back, or jaw pain 9811-7101 [employer]. [address] [place] [address]. All rights reserved. This information is not intended as a substitute for professional medical care. Always follow yourhealthcare professional's instructions. 11/07/2021 14:04:55 COVID-19 Prevent the Spread of COVID-19 If You Are Sick (10/21/2019)(CUSTOM) Prevent the Spread of COVID-19 If You Are Sick Accessible version: https://www.cdc.gov/coronavirus/2019-ncov/rm-zep-usg-sick/istgo-igno-nljl.html If you are sick with COVID-19 or [...] Animals if you have questions about pets: https://www.cdc.gov/coronavirus/2019ncov/faq.html#TDHCO81wsndmka Monitor your symptoms. Common symptoms of COVID-19 [...] and need to call 911, notify the stripping and booking machine operator that you have or think [...] clean your hands with an alcohol-based hand structural engineering project manager that contains at least 60% alcohol. Clean your hands often. Wash your hands often with soap and water for at least 20 seconds. This is especially important after blowing your nose, coughing, or sneezing; going to the bathroom; and before eating or preparing food. Use hand structural engineering project manager if soap and water are not available. Use an alcohol-based hand structural engineering project manager with atleast 60% alcohol, covering all surfaces [...] and water or put them in the neuropsychology director. Clean all high-touch surfaces everyday. Clean [...] or body fluids on them. Use household lead java software engineer and disinfectants. Clean the area or item [...] in consultation with your healthcare provider and [facility] and local health departments. Local decisions depend on local circumstances. cdc.gov/coronavirus Follow Up Care 11/07/2021 13:54:17 With:MARK SMITH DO Address: [address] [place] [address] [place] [address]- [phone] When:2-4 days [facility] 06-02-2022 History of Present illness Narrative* Suzette Paul PA-C - 11/03/2021 9:27 PM EDT Suzette Paul PA-C Established Patient Department of Orthopaedics Orthopaedics [address] [place] [address] Dept: [phone] Dept November 03, 2021 SUBJECTIVE: CHIEF COMPLAINT: [...] Psych: no depression, anxiety OBJECTIVE: Mr. Srinath Pepe is a pleasant 60 year old in [...] Dr. Ting Paul PA-C documented in this encounterBlanchard [facility]05-[facility] History of Present illness Narrative* Ge Maguire [...] satisfaction. This note was partially generated using [employer] voice recognition system and as such may contain grammatical or word errors Ge Maguire MD documented in this encounterBlanchard Valley [facility]05-24[facility] History of Present illness Narrative* Isabel Holm RT(Kait) - 10/25/2021 9:00 AM EDT Radiology Service [...] PERIPHERAL IV DATA: Not applicable SIGNED BY: FILI Wiley) October 25, 2021 9:57 AM documented in this encounterBlanchard Valley [facility]05[facility] Hospital Discharge instructions Patient Education 10/24/2021 22:30:13 [...] the splint. If you have to weara onww-nfm-bler knee brace, you can open it to apply the ice pack, or heat, directly to the knee. Never put ice directly on the skin. Always wrap the ice in a towel or other type of cloth. You may use khly-vkp-tssmclh pain medicine to control pain, unless another [...] wet, you can dry it with a unhairing machine operator set to cool. If you have a fnrr-tmf-kdgu knee brace, you can remove this to [...] toes become cold, blue, numb, or tingly 2912-4365 [employer]. [address] [place] [address]. All rights reserved. This information is not intended as a substitute for professional medical care. Always follow yourhealthcare professional's instructions. Follow Up Care 10/24/2021 20:38:41 With:your orthopedic doctor Address: When:2-4 days [facility] 12-03-2021 Hospital Discharge instructions Patient [...] for 6 hours Weakness, dizziness, or fainting [id number] [employer]. [address] [place] [address]. All rights reserved. This information is not intended as a substitute for professional medical care. Always follow yourhealthcare professional's instructions. 05/06/2021 15:13:47 Oquendo Catheter, Care [...] for 6 hours Weakness, dizziness, or fainting [phone] [employer]. [address] [place] [address]. All rights reserved. This information is not intended as a substitute for professional medical care. Always follow yourhealthcare professional's instructions. Follow Up Care 05/06/2021 14:27:40 With:Your urologist Address: When: Unknown Comments:Follow-up sunday as scheduled. With:MARK SMITH DO Address: When:2-4 days With:ANA VILLA MD, [facility] Address: [phone] When:1-2 days Comments:Follow up as scheduled with urology on 05/09/21. [facility] 01-25-2016 History of Past illness Narrative* Problem Noted Date Resolved Date Arthritis of knee, left 06/28/2015 06/28/19 16 Arthritis of left knee 11/11/2013 6 documented as of this encounter (statuses as of 10/25/2021) [facility] History of Past illness Narrative* Problem Noted Date Resolved Date Arthritis of knee, left 06/28/2015 06/28/19 16 Arthritis of left knee 11/11/2013 6 documented as of this encounter (statuses as of 11/04/2021) [facility] History of Past illness Narrative* Problem Noted Date Resolved Date Arthritis of knee, left 06/28/2015 06/28/19 16 Arthritis of left knee 11/11/2013 6 documented as of this encounter (statuses as of 12/28/2021) [facility] History of Past illness Narrative* Problem Noted Date Resolved Date Arthritis of knee, left 06/28/2015 06/28/19 16 Arthritis of left knee 11/11/2013 6 documented as of this encounter (statuses as of 12/28/2021) [address]25-2016 History of Past illness Narrative* Problem Noted Date Resolved Date Arthritis of knee, left 06/28/2015 06/28/19 16 Arthritis of left knee 11/11/2013 6 documented as of this encounter (statuses as of 12/30/2021) [address]25-2016 History of Past illness Narrative* Problem Noted Date Resolved Date Arthritis of knee, left 06/28/2015 06/28/19 16 Arthritis of left knee 11/11/2013 6 documented as of this encounter (statuses as of 01/06/2022) [address]25-2016 History of Past illness Narrative* Problem Noted Date Resolved Date Arthritis of knee, left 06/28/2015 06/28/19 16 Arthritis of left knee 11/11/2013 6 documented as of this encounter (statuses as of 01/06/2022) [address]25-2016 History of Past illness Narrative* Problem Noted Date Resolved Date Arthritis of knee, left 06/28/2015 06/28/19 16 Arthritis of left knee 11/11/2013 6 documented as of this encounter (statuses as of 10/03/2022) [address]25-2016 History of Past illness Narrative* Problem Noted Date Resolved Date Arthritis of knee, left 06/28/2015 06/28/19 16 Arthritis of left knee 11/11/2013 6 documented as of this encounter (statuses as of 10/04/2022) [address]25-2016 History of Past illness Narrative* Problem Noted Date Resolved Date Arthritis of knee, left 06/28/2015 06/28/19 16 Arthritis of left knee 11/11/2013 6 documented as of this encounter (statuses as of 10/10/2022) [address]25-2016 History of Past illness Narrative* Problem Noted Date Resolved Date Arthritis of knee, left 06/28/2015 06/28/19 16 Arthritis of left knee 11/11/2013 6 documented as of this encounter (statuses as of 10/11/2022) [facility] of Past illness Narrative* Problem Noted Date Resolved Date Arthritis of knee, left 06/28/2015 06/28/19 16 Arthritis of left knee 11/11/2013 6 documented as of this encounter (statuses as of 11/06/2022) [facility] of [facility] illness Narrative* Problem Noted Date Resolved Date Arthritis of knee, left 06/28/2015 06/28/19 16 Arthritis of left knee 11/11/2013 6 documented as of this encounter (statuses as of 11/09/2022) [facility] of Past illness Narrative* Problem Noted Date Diagnosed Date Resolved Date Arthritis of knee, left 06/28/201506/05 Arthritis of left knee 11/11/201306/28 documented as of this encounter (statuses as of 04/08/2023) [facility] History of Past illness Narrative* Problem Noted Date Diagnosed Date Resolved Date Arthritis of knee, left 06/28/201506/05 Arthritis of left knee 11/11/201306/28 documented as of this encounter (statuses as of 04/08/2023) [facility] HospitalConsult note Author Roby [facility] Note Date/Time November 17, 2024 6:51 am [facility] Medical Records Department [address] [place] [address] Pre-Anesthesia Evaluation 11/17/24 0646 MR#: [id number] Acct: [id number] Name: SRINATH PEPE Rep #:[id number] : 1960 63 From: Roby Maki MD PCP: Dr. Kevon Mackey, DO Status:REG SDC Y Race: C Location: [place] [address] ASA Classification* ASA Classification ASA Classification: 3 Assessment & Plan Anesthesia* Anesthesia Assessment Anesthesia Assessment: Discussed sedation and/or anesthesia options, risks, benefits, and alternatives with patient/parents/legal guardian/POA. Questions invited. The patient/parents/legal guardian/POA seems to understand and agrees to proceedwith anesthesia plan. Reviewed the physical assessment, medical history, allergy history and patient home medications list prior to surgery/procedure/anesthetic and documented any changes. Performed airway and anesthesia risk assessments. Anesthesia Type Anesthesia Type: MAC History Source History Obtained from:: Patient and Chart Anesthesia Focused Assessment* Temperature: 97.3 F Pulse Rate: 52 Blood Pressure: 154/91 Respiratory Rate: 16 Pulse Ox: 97 Oxygen Delivery Method: Room Air Airway Assessment Mouth opens: >3 cm Mallampati Score: III Teeth Condition: Caps/Crowns (Patient has several crowns. They are tight.) Neck Range of motion (ROM): Full ROM Labs Anesthesia Preop lab: CBC WBC 5.2 K/mm3 (4.4-11.0) 09/01/24 16:07 09/01/24 RBC 5.36 M/mm3 (4.6-6.2) 09/01/24 16:07 09/01/24 Hgb 15.7 g/dL (13.0-16.5) 09/01/24 16:07 09/01/24 Hct 45.6 % (40-54) 09/01/24 16:07 09/01/24 Plt Count 112 K/mm3 (150-450) L 09/01/24 16:07 09/01/24 CHEMISTRY Potassium 3.6 mmol/L (3.3-5.1) 10/03/24 10:05 10/03/24 Sodium 139 mmol/L (133-145) 10/03/24 10:05 10/03/24 BUN 25 mg/dL (4-19) H 10/03/24 10:05 10/03/24 Creatinine 0.99 mg/dL (0.70-1.20) 10/03/24 10:05 10/03/24 Glucose 126 mg/dL (70-99) H 10/03/24 10:05 10/03/24 TSH 1.220 uIU/mL (0.358-3.740) 02/29/24 09:47 02/03 12/25 COAG PT 14.7 SECONDS (11.7-14.9) 09/01/24 16:07 Pre-Assessment Diagnosis/Proposed Procedure Planned Operative Procedure(s): EGD Anesthesia History Anesthesia 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 When Was Last Pacemaker Check QUESTION #4 FULL TEXT: You/Your Family Experience fever (hyperthermia) with Anesthesia Last Oral Intake Last Oral intake: Last Oral Intake NPO since 00:00 11/17/24 06:30 Meds taken in AM with sips of Yes 11/17/24 06:30 water? Meds patient instructed to carvedilol 11/17/24 06:30 take am of surgery zetia hctz omeprazole valsartan PONV PONV - internet marketing consultant: PONV - internet marketing consultant Female Yes 11/13/24 14:50 HX of Motion Sickness No 11/13/24 14:50 HX of N/V After Surgery No 11/13/24 14:50 Non-Smoker Yes 11/13/24 14:50 Duration of Surgery greater No 11/13/24 14:50 than 60 minutes Number of Risk Factors 2 11/13/24 14:50 PONV Score Moderate Risk 11/13/24 14:50 Height & Weight Height & Weight: Anesthesia: Height & Weight Height 6 ft 4 in 11/17/24 06:30 Weight: 109 kg 11/17/24 06:30 Body Mass Index (BMI) 29.2 11/17/24 06:30 Respiratory Assessment Respiratory Assessment - internet marketing consultant: Respiratory Tract Infection Hx - internet marketing consultant Hx Respiratory Tract Infection No 11/13/24 14:50 STOP Sleep Apnea STOP Sleep Apnea - internet marketing consultant: STOP Sleep Apnea - internet marketing consultant Hx Hypertension Yes: CONTROLLED WITH MEDS 11/13/24 [...] Tobacco Use History Tobacco Use History - internet marketing consultant: Tobacco Use History - internet marketing consultant Tobacco Use Smoking Status Never smoker 11/13/24 14:50 Hx Tobacco Use No 11/13/24 14:50 Years Smoking Packs Smoked per Day Smoking Cessation Date was within the last 15 years Hx Smoking Cessation Date Hx Smoking Cessation Counseling Hematologic Medial History Hematologic Hx - internet marketing consultant: Hematologic Medical Hx - taper and floater Hx of Blood Transfusion No 11/13/24 14:50 Hx of Transfusion in last 3 No 11/13/24 14:50 Months Date of Last Transfusion (if within last 3 months) Ever experience any problems No 11/13/24 14:50 with transfusion(s)? Specify any problems Hx of Preganancy in last 3 N/A 11/13/24 14:50 Months Nurse Filling Out Transfusion [id number] 11/13/24 14:50 & Questions: Date: 11/13/24 11/13/24 14:50 Time: 14:51 11/13/24 14:50 Patient unable to answer at this time (ie. confused, unrespo /Reproduction History /Reproductive History - internet marketing consultant: /Reproductive Hx- internet marketing consultant Hx Now No 11/13/24 14:50 Gestational Age (in weeks): EDC: Hx Hx Para Hx Section SAB No 11/13/24 14:50 Active Medications Active Medications: Current Medications Generic Name Dose Route Start Last Admin Trade Name Freq PRN Reason Stop Dose Admin Lactated Ringer's 1,000 mls @ 15 mls/hr 11/17/24 06:15 11/17/24 06:32 IV 15 mls/hr .Q48H VICENTE Administration PFSH Medical History History of hiatal hernia History of echocardiogram Cardiology follow-up encounter CAD (coronary artery disease) Wears hearing aid Wears glasses Migraine headache Gastric reflux Non-smoker Palpitations Low back pain Dyslipidemia Urinary incontinence, functional Hypertension Erectile dysfunction Chronic migraine Prostate cancer Thrombocytopenia Alcohol abuse Arthritis Hiatal hernia GERD (gastroesophageal reflux disease) Alcoholic cirrhosis of liver Restless leg syndrome Home Medications ?Medication ?Instructions ?Recorded ?Last Taken ?Type multivitamin (Multiple Vitamins 1 ea PO DAILY 09/29/16 11/16/24 History tablet) rimegepant 75 mg disintegrating 75 mg PO ONCE PRN migr morelia headache 10/26/21 Unknown History tablet (Nurtec ODT) sumatriptan succinate 100 mg tablet 100 mg PO ONCE PRN migraine 10/26/21 Unknown History headache cholecalciferol (vitamin D3) 125 125 mcg PO QDAY 02/2811/16/24 History mcg (5,000 unit) tablet omeprazole 20 mg capsule,delayed 20 mg PO QDAY 4 11/17/24 History release vitamin B complex 1 cap PO QDAY 02/29/2411/16 History tadalafil 20 mg tablet 20 mg PO DAILY PRN sexual ac tivity 07/10/24 Unknown History carvedilol 25 mg tablet 25 mg PO BID #180 tabs 07/1811/17/24 Rx coenzyme Q10 400 mg capsule 400 mg PO QDAY 07/18/24 History lactobacillus combination no.4 3 3,000 mmu cells PO QD AY 07/18/24 11/16/24 History billion cell capsule (Probiotic) ezetimibe 10 mg tablet (Zetia) 10 mg PO QDAY #90 tabs 10/16/24 11/17/24 Rx hydrochlorothiazide 25 mg tablet 25 mg PO QDAY #90 tab s 10/16/24 11/17/24 Rx valsartan 320 mg tablet 320 mg PO QDAY #90 tabs 10/0211/17/24 Rx Allergy/AdvReac Type Severity Reaction Status Date / Time fluoxetine (From Prozac) Allergy Hives Verified 11/13/24 14:48 sertraline Allergy Rash Verified 11/13/24 14:48 amlodipine AdvReac Severe Swelling Verified 11/13/24 14:48 doxazosin AdvReac Weakness Verified 11/13/24 14:48 oxycodone AdvReac HICCUPS Verified 10/16/24 12:13 Family History Mother Arthritis Hypertension Father CAD (coronary artery disease) Heart disease Brother Cancer Liver Other Alcoholism Surgical History History of hernia surgery History of esophagogastroduodenoscopy (EGD) History of colonoscopy History of vasectomy History of toe surgery History of radical prostatectomy History of total left knee replacement History of cholecystectomy Social History Smoking Status: Never smoker alcohol intake: former year quit: 2008 substance use type: does not use caffeine: Yes Type: coffee Number of servings: 2 Review of Systems (Anesthesia) ROS Narrative System reviewed and no additional complaints, except as documented. 11/17/24 0651 <Electronically signed by Roby mcmillan MD> Date _ Roby Maki MD Cosign Signature: Date CC: ~ Signed [facility] Work Phone: Consult note Author Tom Lara [facility] Note Date/Time November 17, 2024 7:34 am [facility] Medical Records Department [address] [place] [address] Anesthesia Postop Eval I 11/17/24 0733 MR#: [id number] Acct: [id number] Name: SRINATH PEPE Rep #:[id number] : 1960 63 From: Tom Lara PCP: Dr. Kevon Mackey, DO Status:REG SDC Y Race: C Location: [place] [address] Anesthesia: Postop Eval I Current Vital Signs Temperature: 97.8 F Pulse Rate: 61 Blood Pressure: 108/79 Respiratory Rate: 14 Pulse Ox: 99 Oxygen Delivery Method: Room Air Assessment Airway patent: Yes Spontaneous unlabored respirations: Yes Mental status: Awake and Calm nausea: No Vomiting: No Anesthesia Complication: No Fluid Hydration Crystalloid volume administer (ml): 300 Total IV fluid infused: 300 Progress Note Anesthesia document: Postop Eval 1 completed: Yes 11/17/24 0734 <Electronically signed by Tom Lara > Date _ Tom Wallaceigner Signature: Date CC: ~ Signed [facility] Work Phone: Evaluation + Plan note Future Appointments Appointment Date:04/12/2021 08:10:00 AM Scheduled Provider:ANA VILLA MD Location:[facility] Appointment Type:[facility] Appointment Date:04/18/2021 11:10:00 AM Scheduled Provider:ANA VILLA MD Location:[facility] Appointment Type:[facility] Talk Appointment Date:05/20/2021 08:00:00 AM Scheduled Provider:MARK SMITH DO Location:[facility] Appointment Type:PC OV Appointment Date:06/20/2021 01:00:00 PM Scheduled Provider:LENARD ASENCIO MD Location:[facility] Appointment Type:[facility] OV Follow Up [facility] Evaluation + Plan note Future Appointments Appointment Date:05/20/2021 08:00:00 AM Scheduled Provider:MARK SMITH DO Location:[facility] Appointment Type:PC OV Appointment Date:06/20/2021 01:00:00 PM Scheduled Provider:LENARD ASENCIO MD Location:[facility] Appointment Type:[facility] OV Follow Up Future Scheduled Tests Laboratory* Basic Metabolic Panel 04/18/21 * Complete Blood Count 04/18/21 [facility] evaluation + Plan note Future Appointments Appointment Date:05/20/2021 08:00:00 AM Scheduled Provider:MARK SMITH DO Location[facility] Appointment Type:PC OV Appointment Date:06/20/2021 01:00:00 PM Scheduled Provider:LENARD ASENCIO MD Location:[facility] Appointment Type:[facility] OV Follow Up [facility] Evaluation + Plan note Future Appointments Appointment Date:05/09/2021 08:00:00 AM Scheduled Provider:MARIA A STRICKLAND Location:[facility] Appointment Type:URO OV Appointment Date:05/20/2021 08:00:00 AM Scheduled Provider:MARK SMITH DO Location:[facility] Appointment Type:PC OV Appointment Date:06/13/2021 09:30:00 AM Scheduled Provider:ANA VILLA MD Location:UROLOGY Appointment Type:URO OV Appointment Date:06/20/2021 01:00:00 PM Scheduled Provider:LENARD ASENCIO MD Location:[facility] Appointment Type:[facility] OV Follow Up Future Scheduled Tests Laboratory* Prostate Specific Antigen 06/03/21 * Complete Blood Count 04/29/21 [facility] Evaluation + Plan note Future Appointments Appointment Date:05/20/2021 08:00:00 AM Scheduled Provider:MARK SMIHT DO Location:[facility] Appointment Type:PC OV Appointment Date:06/13/2021 09:30:00 AM Scheduled Provider:ANA VILLA MD Location:UROLOGY Appointment Type:URO OV Appointment Date:06/20/2021 01:00:00 PM Scheduled Provider:LENARD ASENCIO MD Location:[facility] Appointment Type:[facility] OV Follow Up Future Scheduled Tests Laboratory* Prostate Specific Antigen 06/03/21 * Complete Blood Count 04/29/21 [facility] evaluation + Plan note Future Appointments Appointment Date:06/10/2021 08:30:00 AM Scheduled Provider:MARK SMITH DO Location:[facility] Appointment Type:PC OV Appointment Date:06/13/2021 09:30:00 AM Scheduled Provider:ANA VILLA MD Location:UROLOGY Appointment Type:URO OV Appointment Date:06/20/2021 01:00:00 PM Scheduled Provider:LENARD ASENCIO MD Location:[facility] Appointment Type:[facility] OV Follow Up Future Scheduled Tests Laboratory* Prostate Specific Antigen 06/03/21 * Complete Blood Count 04/29/21 [facility] Evaluation + Plan note Future Appointments Appointment Date:06/10/2021 08:30:00 AM Scheduled Provider:MARK SMITH DO Location:[facility] Appointment Type:PC OV Appointment Date:06/13/2021 09:30:00 AM Scheduled Provider:ANA VILLA MD Location:UROLOGY Appointment Type:URO OV Appointment Date:06/20/2021 01:00:00 PM Scheduled Provider:LENARD ASENCIO MD Location:[facility] Appointment Type:[facility] OV Follow Up Future Scheduled Tests Laboratory* Complete Blood Count 04/29/21 [facility] Evaluation + Plan note Future Appointments Appointment Date:06/20/2021 01:00:00 PM Scheduled Provider:LENARD ASENCIO MD Location:[facility] Appointment Type:[facility] OV Follow Up Appointment Date:09/19/2021 10:00:00 AM Scheduled Provider:ANA VILLA MD Location:UROLOGY Appointment Type:[facility]O [facility] Appointment Date:09/30/2021 08:30:00 AM Scheduled Provider:MARK SMITH DO Location:[facility] Appointment Type:PC OV Future Scheduled Tests Laboratory* Prostate Specific Antigen 09/11/21 * Complete Blood Count 04/29/21 [facility] Evaluation + Plan note Future Appointments Appointment Date:09/19/2021 10:00:00 AM Scheduled Provider:ANA VILLA MD Location:UROLOGY Appointment Type:URO OV Appointment Date:09/30/2021 08:30:00 AM Scheduled Provider:MARK SMITH DO Location:[facility] Appointment Type:PC OV Appointment Date:06/09/2022 01:00:00 PM Scheduled Provider:LENARD ASENCIO MD Location:[facility]M [facility]C Appointment Type:HEM ONC OV Follow Up Future Scheduled Tests Laboratory* Prostate Specific Antigen 09/11/21 * Complete Blood Count 04/29/21 [facility] Evaluation + Plan note Future Appointments Appointment Date:09/19/2021 10:00:00 AM Scheduled Provider:ANA VILLA MD Location:UROLOGY Appointment Type:URO OV Appointment Date:09/30/2021 08:30:00 AM Scheduled Provider:MARK SMITH DO Location:[facility] Appointment Type:PC OV Appointment Date:06/09/2022 01:00:00 PM Scheduled Provider:LENARD ASENCIO MD Location:[facility]M ONC Appointment Type:HEM ONC OV Follow Up Future Scheduled Tests Laboratory* Complete Blood Count 04/29/21 [facility] Evaluation + Plan note Future Appointments Appointment Date:09/30/2021 08:30:00 AM Scheduled Provider:MARK SMITH DO Location:[facility] Appointment Type:PC OV Appointment Date:01/16/2022 08:10:00 AM Scheduled Provider:ANA VILLA MD Location:UROLOGY Appointment Type:URO OV Appointment Date:06/09/2022 01:00:00 PM Scheduled Provider:LENARD ASENCIO MD Location:[facility] Appointment Type:HEM ONC OV Follow Up Future Scheduled Tests Laboratory* Prostate Specific Antigen 12/19/21 * Complete Blood Count 04/29/21 [facility] Evaluation + Plan note Future Appointments Appointment Date:12/30/2021 09:00:00 AM Scheduled Provider:MARK SMITH DO Location:[facility] Appointment Type:PC Wellness Annual Appointment Date:01/16/2022 08:10:00 AM Scheduled Provider:ANA VILLA MD Location:UROLOGY Appointment Type:URO OV Appointment Date:06/09/2022 01:00:00 PM Scheduled Provider:LENARD ASENCIO MD Location:[facility] Appointment Type:HEM ONC OV Follow Up Future Scheduled Tests Laboratory* Prostate Specific Antigen 12/19/21 * Complete Blood Count 04/29/21 [facility] evaluation + Plan note Future Appointments Appointment Date:11/15/2021 01:30:00 PM Scheduled Provider:MARK SMITH DO Location:[facility] Appointment Type:PC OV ED Follow Up Appointment Date:12/30/2021 09:00:00 AM Scheduled Provider:MARK SMITH DO Location:[facility] Appointment Type:PC Wellness Annual Appointment Date:01/16/2022 08:10:00 AM Scheduled Provider:ANA VILLA MD Location:UROLOGY Appointment Type:URO OV Appointment Date:06/09/2022 01:00:00 PM Scheduled Provider:LENARD ASENCIO MD Location:[facility] Appointment Type:HEM ONC OV Follow Up Future Scheduled Tests Laboratory* Prostate Specific Antigen 12/19/21 * Complete Blood Count 04/29/21 [facility] Evaluation + Plan note Future Appointments Appointment Date:01/16/2022 08:10:00 AM Scheduled Provider:ANA VILLA MD Location:UROLOGY Appointment Type:URO OV Appointment Date:06/09/2022 01:00:00 PM Scheduled Provider:LENARD ASENCIO MD Location:[facility] Appointment Type:HEM ONC OV Follow Up Appointment Date:07/04/2022 09:30:00 AM Scheduled Provider:MARK SMITH DO Location:[facility] Appointment Type:PC OV Future Scheduled Tests Laboratory* Basic Metabolic Panel 02/06/22 * Complete Blood Count 04/29/21 [facility] Evaluation + Plan note Future Appointments Appointment Date:06/09/2022 01:00:00 PM Scheduled Provider:LENARD ASENCIO MD Location:[facility] Appointment Type:HEM ONC OV Follow Up Appointment Date:07/04/2022 09:30:00 AM Scheduled Provider:MARK SMITH DO Location:[facility] Appointment Type:PC OV Appointment Date:07/24/2022 11:20:00 AM Scheduled Provider:ANA VILLA MD Location:UROLOGY Appointment Type:URO OV Future Scheduled Tests Laboratory* Basic Metabolic Panel 07/19/22 * Basic Metabolic Panel 02/06/22 * Prostate Specific Antigen 07/19/22 * Complete Blood Count 04/29/21 [facility] Evaluation + Plan note Future Appointments Appointment Date:03/09/2022 09:30:00 AM Scheduled Provider:MARK SMITH DO Location:[facility] [...] Antigen 07/19/22 * Complete Blood Count 04/29/21 [facility] Evaluation + Plan note Future Appointments Appointment Date:04/14/2022 10:00:00 AM Scheduled Provider: Location:[facility] Appointment Type:VL AO - Renal Artery US/Doppler Complet Appointment Date:04/14/2022 11:00:00 AM Scheduled Provider: Location:[facility] Appointment Type:CV Procedure - AOH Echo Appointment Date:04/17/2022 09:00:00 AM Scheduled Provider: Location:[facility] Appointment Type:CV Nurse BP Check Appointment Date:05/03/2022 09:00:00 AM Scheduled Provider:DETXER ROLDAN Location[facility] Appointment Type:CV OV Appointment Date:06/09/2022 [...] Antigen 07/19/22 * Complete Blood Count 04/29/21 [facility] Evaluation + Plan note Future Appointments Appointment Date:04/17/2022 09:00:00 AM Scheduled Provider: Location:[facility] Appointment Type:CV Nurse BP Check Appointment Date:05/03/2022 09:00:00 AM Scheduled Provider:DEXTER ROLDAN Location:[facility] Appointment Type:CV OV Appointment Date:06/09/2022 01:00:00 PM Scheduled Provider:LENARD ASENCIO MD Location:[facility] Appointment Type:HEM ONC OV Follow Up Appointment Date:06/13/2022 09:15:00 AM Scheduled Provider:KEVON MACKEY DO Location:[facility] Appointment Type:PC OV Appointment Date:07/04/2022 09:30:00 AM Scheduled Provider:MARK SMITH DO Location:[facility] Appointment Type:PC OV Appointment Date:07/24/2022 11:20:00 AM Scheduled Provider:ANA VILLA MD Location:UROLOGY Appointment Type:URO OV Future Scheduled Tests Laboratory* Basic Metabolic Panel 07/19/22 * Prostate Specific Antigen 07/19/22 * Complete Blood Count 04/29/21 [facility] Evaluation + Plan note Future Appointments Appointment Date:06/13/2022 09:00:00 AM Scheduled Provider:KEVON MACKEY DO Location:[facility] Appointment Type:PC OV Appointment Date:07/04/2022 09:30:00 AM Scheduled Provider:MARK SMITH DO Location:[facility] Appointment Type:PC OV Appointment Date:07/24/2022 11:20:00 AM Scheduled Provider:ANA VILLA MD Location:UROLOGY Appointment Type:URO OV Appointment Date:08/07/2022 09:00:00 AM Scheduled Provider:DEXTER ROLDAN Location:[facility] Appointment Type:CV OV Appointment Date:06/15/2023 01:00:00 PM Scheduled Provider:LENARD ASENCIO MD Location:[facility] Appointment Type:HEM ONC OV Follow Up Future Scheduled Tests Laboratory* Basic Metabolic Panel 07/19/22 * Ferritin 06/09/23 * Lactate Dehydrogenase 06/09/23 * Prostate Specific Antigen 07/19/22 * Complete Blood Count 06/09/23 * Iron Studies 06/09/23 * Complete Metabolic Panel 06/09/23 [facility] Evaluation + Plan note Future Appointments Appointment Date:08/14/2022 09:30:00 AM Scheduled Provider:DEXTER ROLDAN Location:[facility] Appointment Type:Online OV CVC Appointment Date:01/01/2023 08:30:00 AM Scheduled Provider:KEVON MACKEY DO Location:[facility] Appointment Type:PC Wellness Annual Appointment [...] Studies 06/09/23 * Complete Metabolic Panel 06/09/23 [facility] evaluation + Plan note Future Appointments Appointment Date:01/01/2023 08:30:00 AM Scheduled Provider:KEVON MACKEY DO Location:[facility] Appointment Type:PC Wellness Annual Appointment Date:02/02/2023 08:20:00 AM Scheduled Provider:ANA VILLA MD Location:UROLOGY Appointment Type:URO OV Prostate Cancer Follow Up Appointment Date:02/26/2023 09:00:00 AM Scheduled Provider:DEXTER ROLDAN Location:[facility] Appointment Type:CV OV Appointment Date:06/15/2023 01:00:00 PM Scheduled Provider:LENARD ASENCIO MD Location:[facility] Appointment Type:HEM ONC OV Follow Up Future Scheduled Tests Laboratory* Ferritin 06/09/23 * Lactate Dehydrogenase 06/09/23 * Prostate Specific Antigen 02/03/23 * Complete Blood Count 06/09/23 * Iron Studies 06/09/23 * Complete Metabolic Panel 06/09/23 [facility] Evaluation + Plan note Future Appointments Appointment Date:02/26/2023 09:00:00 AM Scheduled Provider:DEXTER ROLDAN Location:[facility] Appointment Type:CV OV Appointment Date:03/09/2023 08:20:00 AM Scheduled Provider:ANA VILLA MD Location:UROLOGY Appointment Type:URO OV Prostate Cancer Follow Up Appointment Date:06/15/2023 01:00:00 PM Scheduled Provider:LENARD ASENCIO MD Location:[facility] Appointment Type:HEM ONC OV Follow Up Appointment Date:01/02/2024 08:30:00 AM Scheduled Provider:KEVON MACKEY DO Location:[facility] Appointment Type:PC Wellness Annual [facility] Evaluation + Plan note Future Appointments Appointment Date:03/07/2023 01:20:00 PM Scheduled Provider:ANA VILLA MD Location:UROLOGY Appointment Type:URO OV Prostate Cancer Follow Up Appointment Date:06/15/2023 01:00:00 PM Scheduled Provider:LENARD ASENCIO MD Location:[facility] Appointment Type:HEM ONC OV Follow Up Appointment Date:01/02/2024 08:30:00 AM Scheduled Provider:KEVON MACKEY DO Location:[facility] Appointment Type:PC Wellness Annual Appointment Date:03/03/2024 09:00:00 AM Scheduled Provider:DEXTER ROLDAN Location:[facility] Appointment Type:CV OV [facility] Evaluation + Plan note Future Appointments Appointment Date:06/15/2023 01:00:00 PM Scheduled Provider:LENARD ASENCIO MD Location:[facility] Appointment Type:HEM ONC OV Follow Up Appointment Date:01/02/2024 08:30:00 AM Scheduled Provider:KEVON MACKEY DO Location:[facility] Appointment Type:PC Wellness Annual Appointment Date:03/03/2024 09:00:00 AM Scheduled Provider:DEXTER ROLDAN Location:[facility] Appointment Type:CV OV Appointment Date:03/07/2024 09:40:00 AM Scheduled Provider:ANA VILLA MD Location:UROLOGY Appointment Type:URO OV Future Scheduled Tests Laboratory* Prostate Specific Antigen 03/07/24 [facility] evaluation + Plan note Future Appointments Appointment Date:01/02/2024 08:30:00 AM Scheduled Provider:KEVON MACKEY DO Location:[facility] Appointment Type:PC Wellness Annual Appointment Date:03/03/2024 09:00:00 AM Scheduled Provider:DEXTER ROLDAN Location:[facility] Appointment Type:CV OV Appointment Date:03/07/2024 09:40:00 AM Scheduled Provider:ANA VILLA MD Location:UROLOGY Appointment Type:URO OV Appointment Date:06/16/2024 01:15:00 PM Scheduled Provider:LENARD ASENCIO MD Location:[facility] Appointment Type:HEM ONC OV Follow Up Future Scheduled Tests Laboratory* Ferritin 06/15/24 * Prostate Specific Antigen 03/07/24 * Complete Blood Count 06/15/24 * Iron Studies 06/15/24 * Complete Metabolic Panel 06/15/24 [facility] evaluation + Plan note Future Appointments Appointment Date:03/03/2024 09:00:00 AM Scheduled Provider:DEXTER ROLDAN Location:[facility] Appointment Type:CV OV Appointment Date:03/07/2024 09:40:00 AM Scheduled Provider:ANA VILLA MD Location:UROLOGY Appointment Type:URO OV Appointment Date:04/09/2024 09:00:00 AM Scheduled Provider:KEVON MACKEY DO Location:[facility] Appointment Type:PC OV Appointment Date:06/16/2024 01:15:00 PM Scheduled Provider:LENARD ASENCIO MD Location:[facility] Appointment Type:HEM ONC OV Follow Up Appointment Date:12/31/2024 08:30:00 AM Scheduled Provider:KEVON MACKEY DO Location:[facility] Appointment Type:PC Wellness Annual Future [...] Panel 06/15/24 * Complete Metabolic Panel 01/01/25 [facility] Evaluation + Plan note Future Appointments Appointment Date:03/07/2024 09:40:00 AM Scheduled Provider:ANA VILLA MD Location:UROLOGY Appointment Type:URO OV Appointment Date:04/09/2024 09:00:00 AM Scheduled Provider:KEVON MACKEY DO Location:[facility] Appointment Type:PC OV Appointment Date:06/16/2024 01:15:00 PM Scheduled Provider:LEANRD ASENCIO MD Location:[facility] Appointment Type:HEM ONC OV Follow Up Appointment Date:12/31/2024 08:30:00 AM Scheduled Provider:KEVON MACKEY DO Location:[facility] Appointment Type:PC Wellness Annual Appointment Date:03/03/2025 09:00:00 AM Scheduled Provider:DEXTER ROLDAN Location:[facility] Appointment Type:CV OV Future Scheduled Tests [...] Panel 06/15/24 * Complete Metabolic Panel 01/01/25 [facility] Evaluation + Plan note Future Appointments Appointment Date:04/09/2024 09:00:00 AM Scheduled Provider:KEVON MACKEY DO Location:[facility] Appointment Type:PC OV Appointment Date:06/16/2024 01:15:00 PM Scheduled Provider:LENARD ASENCIO MD Location:[facility] Appointment Type:HEM ONC OV Follow Up Appointment Date:12/31/2024 08:30:00 AM Scheduled Provider:KEVON MACKEY DO Location:[facility] Appointment Type:PC Wellness Annual Appointment Date:03/03/2025 09:00:00 AM Scheduled Provider:DEXTER ROLDAN Location:[facility] Appointment Type:CV OV Appointment Date:03/09/2025 08:10:00 [...] Panel 06/15/24 * Complete Metabolic Panel 01/01/25 [facility] Evaluation + Plan note Future Appointments Appointment Date:03/09/2025 08:10:00 AM Scheduled Provider:ANA VILLA MD Location:UROLOGY Appointment Type:URO OV Appointment Date:03/20/2025 08:20:00 AM Scheduled Provider:ANA VILLA MD Location:UROLOGY Appointment Type:URO OV Appointment Date:06/30/2025 08:30:00 AM Scheduled Provider:KEVON MACKEY DO Location:[facility] Appointment Type:PC OV Future Scheduled Tests Laboratory* TSH with Reflex to FT4 01/01/25 * Ferritin 06/15/24 * Prostate Specific Antigen 03/07/25 * Prostate Specific Antigen 01/01/25 * Prostate Specific Antigen 04/06/25 * Vitamin B12 Level 01/01/25 * Complete Blood Count 06/15/24 * Complete Blood Count 01/01/25 * Lipid Profile 01/01/25 * Iron Studies 06/15/24 * Vitamin D Level 01/01/25 * Complete Metabolic Panel 06/15/24 * Complete Metabolic Panel 01/01/25 [facility] Evaluation + Plan note Future Appointments Appointment Date:03/20/2025 08:20:00 AM Scheduled Provider:ANA VILLA MD Location:UROLOGY Appointment Type:URO OV Appointment Date:06/30/2025 08:30:00 AM Scheduled Provider:KEVON MACKEY DO Location:[facility] Appointment Type:PC OV Future Scheduled Tests Laboratory* Ferritin 06/15/24 * Prostate Specific Antigen 03/07/25 * Prostate Specific Antigen 04/06/25 * Complete Blood Count 06/15/24 * Iron Studies 06/15/24 * Complete Metabolic Panel 06/15/24 [facility] Evaluation + Plan note Future Appointments Appointment Date:04/17/2025 11:20:00 AM Scheduled Provider:EFREM PAYAN Location:UROLOGY Appointment Type:URO OV Appointment Date:06/30/2025 08:30:00 AM Scheduled Provider:KEVON MACKEY DO Location:[facility] Appointment Type:PC OV Appointment Date:03/22/2026 08:00:00 AM Scheduled Provider:ANA VILLA MD Location:UROLOGY Appointment Type:URO OV Future Scheduled Tests Laboratory* Ferritin 06/15/24 * Prostate Specific Antigen 03/20/26 * Prostate Specific Antigen 03/07/25 * Prostate Specific Antigen 04/06/25 * Complete Blood Count 06/15/24 * Iron Studies 06/15/24 * Complete Metabolic Panel 06/15/24 [facility] Evaluation noteNo assessment information available [facility] Work Phone: Evaluation note* Diagnosis Acute pain of left knee- Primary Knee swelling Effusion of lower leg joint [facility] Diagnosis Acute pain of left knee- Primary Knee swelling Effusion of lower leg joint S/P total knee arthroplasty, left documented [facility] this [facility] Diagnosis Knee swelling- Primary Effusion of lower leg joint Pain due to internal orthopedic prosthetic devices, implants and grafts, initial encounter ([facility]) documented in this encounter [facility] note* Diagnosis Knee swelling- Primary Effusion of lower leg joint Pain due to internal orthopedic prosthetic devices, implants and grafts, initial encounter ([facility]) S/P total knee arthroplasty, left documented in this encounter [facility] note* Diagnosis Onset Date Resolution Status Daytime hypersomnia acute Restless leg syndrome acute [facility] Work Phone: Evaluation note* Diagnosis Pain due to internal orthopedic prosthetic devices, implants and grafts, initial encounter ([facility]) documented in this encounter [facility] note* Diagnosis Effusion of left knee- Primary Effusion of lower leg joint Pain due to internal orthopedic prosthetic devices, implants and grafts, initial encounter ([facility]) documented in this encounter [facility] note* Diagnosis Joint laxity of left knee- Primary Effusion of left knee Effusion of lower leg joint Pain due to internal orthopedic prosthetic devices, implants and grafts, initial encounter ([facility]) S/P total knee arthroplasty, left Joint laxity of left knee Effusion of left knee Effusion of lower leg joint Pain due to internal orthopedic prosthetic devices, implants and grafts, initial encounter ([facility]) S/P total knee arthroplasty, left documented in this encounter [facility] note* Diagnosis Pain due to internal orthopedic prosthetic devices, implants and grafts, initial encounter ([facility])- Primary Joint laxity of left knee Effusion of left knee Effusion of lower leg joint Pain due to internal orthopedic prosthetic devices, implants and grafts, initial encounter ([facility]) S/P total knee arthroplasty, left documented in this encounter [facility] note* Diagnosis Preoperative examination- Primary Preoperative examination, [...] prosthetic devices, implants and grafts, initial encounter ([facility]) S/P total knee arthroplasty, left documented in this encounter [facility] note* Diagnosis Chronic pain of left knee- Primary Pain in joint, lower leg [facility] Diagnosis S/P revision of total knee, left documented in this encounter [facility] note* Diagnosis 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 Stiffness of left knee [facility]* Diagnosis Status post revision of total replacement of left knee [facility]* Diagnosis 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 [facility]* Diagnosis Knee swelling Effusion of lower leg joint [facility]* Diagnosis Effusion of left knee Effusion of lower leg joint documented in this encounter [facility] Diagnosis Preoperative examination- Primary Preoperative examination, [...] Primary documented in this encounter [facility] note* Diagnosis Preoperative examination- Primary Preoperative examination, [...] pain, unspecified chronicity documented in this encounter [facility] Diagnosis Preoperative examination- Primary Preoperative examination, [...] joint, lower leg documented in this encounter [facility] Diagnosis Preoperative examination- Primary Preoperative examination, [...] joint, lower leg documented in this encounter [facility] Diagnosis Left knee pain, unspecified chronicity [...] neoplasm of prostate documented in this encounter [facility] Author Bismark Montoya [facility] Note Date/Time November 17, 2024 6:43 am [facility] Medical Records Department [address] [place] [address] History & Physical Exam 11/17/24 0641 MR#: [id number] Acct: [id number] Name: SRINATH PEPE SELNI Rep #:[id number] : 1960 63 From: Bismark Montoya DO PCP: Dr. Kevon Mackey, DO Status:[facility] Location: [place] [address] HPI - General General Date of Admission: 11/17/24 Date of Service: 11/17/24 Chief Complaint: Esophageal varices HPI Narrative SRINATH PEPE, is a 63 M who presents for esophageal varices screening. SRINATH PEPE, is a 63 M who presents to the office today for follow up. Previously established with Dr. Frye for chronic liver issues. PMH alcoholic cirrhosis of liver, history of alcohol abuse, thrombocytopenia d/t liver disease, GERD. Cessation of alcohol in 2008. Omeprazole taken for GERD, symptomsunder control. He is working hard with diet [...] but likely represents a cyst. A LEFT renalcycst is also shown. Small hiatal hernia. Atherosclerotic [...] 2.6 x 2.8 x 2.3 cm. Spleen enlargedmeasures 17.8 x17.9 x 5.7. EGD, trace esophageal varices. No acute complaint. Patient quit alcohol about 15 years ago in 2008. 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 Kuo till now. Last blood work from January [address] abdomen and MRI reviewed. No recenthistory of GI bleed, ascites, jaundice or bleeding. Cirrhosis seems compensate 02.28.24- MELDna 9 OV 12.10.24- Pt well since last visit. Denies abdominal pain, changes in bowels, dizziness, confusion or swelling. No complaints today. OV 24 - MELDna 7 Abd Elastography 06/13/24 Liver stiffness measures 13.2 kPa compatible with F3-F4 (Moderate to severe liver fibrosis) Metavir score. OV 09/10/2024: MELD sodium score 8 from 09/01/2024. Patient had EGD on 07/22/2024. No acute complaint [facility] Medical History History of hiatal hernia History of echocardiogram Cardiology follow-up encounter CAD (coronary artery disease) Wears hearing aid Wears glasses Migraine headache Gastric reflux Non-smoker Palpitations Low back pain Dyslipidemia Urinary incontinence, functional Hypertension Erectile dysfunction Chronic migraine Prostate cancer Thrombocytopenia Alcohol abuse Arthritis Hiatal hernia GERD (gastroesophageal reflux disease) Alcoholic cirrhosis of liver Restless leg syndrome Home Medications ?Medication ?Instructions ?Recorded ?Last Taken ?Type multivitamin (Multiple Vitamins 1 ea PO DAILY 09/29/16 11/16/24 History tablet) rimegepant 75 mg disintegrating 75 mg PO ONCE PRN migr morelia headache 10/26/21 Unknown History tablet (Nurtec ODT) sumatriptan succinate 100 mg tablet 100 mg PO ONCE PRN migraine 10/26/21 Unknown History headache cholecalciferol (vitamin D3) 125 125 mcg PO QDAY 02/2811/16/24 History mcg (5,000 unit) tablet omeprazole 20 mg capsule,delayed 20 mg PO QDAY 4 11/17/24 History release vitamin B complex 1 cap PO QDAY 02/29/2411/16 History tadalafil 20 mg tablet 20 mg PO DAILY PRN sexual ac tivity 07/10/24 Unknown History carvedilol 25 mg tablet 25 mg PO BID #180 tabs 07/1811/17/24 Rx coenzyme Q10 400 mg capsule 400 mg PO QDAY 07/18/24 History lactobacillus combination no.4 3 3,000 mmu cells PO QD AY 07/18/24 11/16/24 H istory billion cell capsule (Probiotic) ezetimibe 10 mg tablet (Zetia) 10 mg PO QDAY #90 tabs 10/16/24 11/17/24 Rx hydrochlorothiazide 25 mg tablet 25 mg PO QDAY #90 tab s 10/16/24 11/17/24 Rx valsartan 320 mg tablet 320 mg PO QDAY #90 tabs 10/0211/17/24 Rx Allergy/AdvReac Type Severity Reaction Status Date / Time fluoxetine (From Prozac) Allergy Hives Verified 11/13/24 14:48 sertraline Allergy Rash Verified 11/13/24 14:48 amlodipine AdvReac Severe Swelling Verified 11/13/24 14:48 doxazosin AdvReac Weakness Verified 11/13/24 14:48 oxycodone AdvReac HICCUPS Verified 10/16/24 12:13 Family History Mother Arthritis Hypertension Father CAD (coronary artery disease) Heart disease Brother Cancer Liver Other Alcoholism Surgical History History of hernia surgery History of esophagogastroduodenoscopy (EGD) History of colonoscopy History of vasectomy History of toe surgery History of radical prostatectomy History of total left knee replacement History of cholecystectomy Social History Smoking Status: Never smoker alcohol intake: former year quit: 2008 substance use type: does not use caffeine: Yes Type: coffee Number of servings: 2 ROS Constitutional Constitutional: Denies fatigue, fever(s), poor appetite, weight gain or weight loss Gastrointestinal Gastrointestinal: Denies belching, bloating, change in bowel habits, change in stool character, chewing difficulty, coffee ground emesis, constipation, cramping, diarrhea, dyspepsia, dysphagia, early satiety, excessive flatus, fecalincontinence, heartburn, hematemesis, hematochezia, hemorrhoids, loose stools, melena, nausea, odynophagia, rectal bleeding, tenesmus, vomiting or weight changes Vital Signs Vital Signs Vital Signs: 11/17/24 06:28 11/17/24 06:30 Temperature 97.3 F L Temperature Source Temporal Pulse Rate 52 L Respiratory Rate 16 Respiratory Pattern Normal Blood Pressure 154/91 H Blood Pressure Mean 112 Blood Pressure Source Monitor Blood Pressure Position Semi-Fowlers Blood Pressure Location Right Arm Pulse Ox 97 Oxygen Delivery Method Room Air Weight Weight: 240 lb 4.862 oz Body Mass Index (BMI) 29.2 Physical Exam Const alert, oriented x3, no apparent distress and healthy appearing General Appearance: cooperative GI normal to inspection, nondistended, normoactive bowel sounds, soft to palpation,non-tender and non-distended Percussion: normal to percussion Rectal Exam: deferred Assessment & Plan Assessment/Plan (1) Varices of esophagus determined by endoscopy: PLAN: Assessment and Plan Assessment and Plan (1) Alcoholic cirrhosis of liver: Status: Chronic Qualifiers: Ascites presence: without ascites Qualified Code(s): K70.30 - Alcoholiccirrhosis of liver without ascites Plan: Overall assessment seems compensated alcoholic cirrhosis with no recent featuresof GI bleed/variceal bleed, jaundice, ascites, hepatic hydrothorax or colopathy. Patient has chronic thrombocytopenia. Patient is physically active. Labs from September 01, 2024 reviewed with the patient. MELD sodium score 8, child score A. No acute issues. Abdominal ultrasound with elastography from June 28 shows median liver stiffness 13.2 compatible with F3 F4 moderate to severe liver fibrosis. Splenomegaly about 17.2 cm. No mass Labs from February 2024 showed viral hepatitis, autoimmune markers, HELEN, ceruloplasmin, ferritin and serologies in normal limit. Overall it seems the etiology is alcohol. Patient stated he has been diagnosed cirrhosis about 14 to15 years ago. Last triple phage abdomen MRI January 2022 reviewed with the patient does not show liver mass but seen by splenomegaly. Prior to that patient also had CT abdomen with IV contrast. Patient is status postcholecystectomy. Micronodular contour of liver suggestive of cirrhosis. Spleen reported enlarged. Portal vein patent. Pancreas no focal cystic or solid mass. Patient is vaccinated with hepatitis A and B. Follow-up in 4 (2) Varices of esophagus determined by endoscopy: Status: Acute Plan: EGD grade 2 esophageal varices, incompletely eradicated/banded. PHG. No gross lesion in D1. Repeat EGD in 3 months. Will schedule EGD. (3) Dyslipidemia: Status: Chronic Plan: Repeat fasting profile on 09/01 shows improvement in TC, LDL and triglyceride Orders: Orders CBC W/Diff, Automated 4 Months E78.5 - Hyperlipidemia, unspecified, I25.10 - Atherosclerotic heart disease of [place] coronary artery without angina pectoris,I85.00 - Esophageal varices without bleeding, K70.30 - Alcoholic cirrhosis of liver without ascites Comprehensive Metabolic Profil 4 Months E78.5 - Hyperlipidemia, unspecified, I25.10 - Atherosclerotic heart disease of [place] coronary artery without angina pectoris, I85.00 - Esophageal varices without bleeding, K70.30 - Alcoholic cirrhosis of liver without ascites Prothrombin Time w/INR 4 Months E78.5 - Hyperlipidemia, unspecified, I25.10 - Atherosclerotic heart disease of [place] coronary artery without angina pectoris,I85.00 - Esophageal varices without bleeding, K70.30 - Alcoholic cirrhosis of liver without ascites CRP 4 Months E78.5 - Hyperlipidemia, unspecified, I25.10 - Atherosclerotic heart disease of [place] coronary artery without angina pectoris, I85.00 - Esophageal varices without bleeding, K70.30 - Alcoholic cirrhosis of liver without ascites AFP, Tumor Marker 4 Months E78.5 - Hyperlipidemia, unspecified, I25.10 - Atherosclerotic heart disease of [place] coronary artery without angina pectoris,I85.00 - Esophageal varices without bleeding, K70.30 - Alcoholic cirrhosis of liver without ascites 11/17/24 0643 <Electronically signed by Bismark Montoya DO> Cosigner Signature (if applicable): CC: Dr. Kevon Mackey, ; Bismark Montoya, ~ Signed [facility] Work Phone: Hospital course Narrative No data available for this section [facility] Discharge instructions No data available for this section [facility]* DARLEEN JACKSON MD: SIGN, VERIFY Event Display: VL Renal Artery US/Doppler Complete [facility] Progress note No data available for this section [facility] Progress note Author Naman Garcia [facility] Note Date/Time February 25, 2025 8:40am [facility] [address] [place] [address] OFFICE VISIT Date of Service: 02/25/25 MR#: [id number] Acct: [id number] Name: SRINATH PEPE Rep #: [id number] : 1960 Provider: SOHAM Pagan Age/Sex: 64/M Location: [facility] Status: Signed HPI HPI History of Present Illness Surgical H&P: Yes Details: Srinath Pepe is a 64-year-old male who presents to office today for follow- up for monitoring her cardiovascular health. He has a history of hypertension and underlying cirrhosis. He has new onset atrial fibrillation. He was evaluated via coronary calcium score 08/12/2024 that demonstrated a total score of 285 with more specific details of left main 17.6, LAD 221, left circumflex 8.03 and RCA 38.7. Upon presentation today, patient reports ongoing significant fatigue reported asfeeling run down. He reports feeling like he has the flu and reports this has been going on since going in [place]. He has been off work since this started due to feeling unwell. He experiences mild SOB feeling like he has to take deep breaths throughout the day at rest and with activity since the atrial fibrillation started. Patient reports a history of migraines and reports these continue at the same rate but have characteristically changed. He reports he canfeel his atrial fibrillation with fluttering in his chest. Further ROS below. Intake Vital Signs 01/28/25 07:25 02/25/25 07:48 Height 6 ft 4 in 6 ft 4 in Weight: 247 lb BMI 30.0 BP 121/82 H Blood Pressure Location Lt brachial Position Sitting Respiration 18 Pulse 71 Pulse Source Monitor Pulse Oximetry (%) 97 Intake Visit Reasons: 4 WK FU Receiving Weigher Required: No Is patient in pain?: No Allergies fluoxetine (From Hypioszac) Allergy (Verified 02/25/25 07:58) Hives sertraline Allergy (Verified 02/25/25 07:58) Rash amlodipine Adverse Reaction (Severe, Verified 02/25/25 07:58) Swelling doxazosin Adverse Reaction (Verified 02/25/25 07:58) Weakness oxycodone Adverse Reaction (Verified 02/25/25 07:58) HICCUPS Medications ?Medication ?Instructions ?Recorded ?Confirmed ?Type multivitamin (Multiple Vitamins 1 ea PO DAILY 09/29/16 02/25/25 History tablet) cholecalciferol (vitamin D3) 125 125 mcg PO QDAY 02/2802/25/25 History mcg (5,000 unit) tablet tadalafil 20 mg tablet 20 mg PO DAILY PRN sexual ac tivity 07/10/24 02/25/25 History carvedilol 25 mg tablet 25 mg PO BID #180 tabs 07/1802/25/25 Rx coenzyme Q10 400 mg capsule 400 mg PO QDAY 07/18/24 History lactobacillus combination no.4 3 3,000 mmu cells PO QD AY 07/18/24 02/25/25 History billion cell capsule (Probiotic) ezetimibe 10 mg tablet (Zetia) 10 mg PO QDAY #90 tabs 05/15/25 09/24/25 Rx hydrochlorothiazide 25 mg tablet 25 mg PO QDAY #90 tab s 10/16/24 02/25/25 Rx valsartan 320 mg tablet 320 mg PO QDAY #90 tabs 10/0202/25/25 Rx omeprazole 20 mg capsule,delayed 20 mg PO QDAY 90 days #90 caps 11/27/24 02/25/25 Rx release apixaban 5 mg tablet (Eliquis) 5 mg PO BID ordered by Dr. Mackey 01/20/25 02/25/25 History hydralazine 50 mg tablet 50 mg PO BID #60 tabs 02/25/25 Rx fremanezumab-vfrm 225 mg/1.5 mL 225 mg (1.5 mL) subcut QMONTH #1.5 01/29/25 02/25/25 Rx subcutaneous auto-injector (Ajovy) mL Ejection fraction %: 60 Have you fallen in the past year?: No PFSH Medical History History of hiatal hernia History of echocardiogram [...] Number of servings: 2 ROS Const Const: Positive for fatigue and headache(s); Negative for weakness or frequent falls Eyes Eyes: Negative for blurry vision ENT ENT: Positive for headache(s); Negative for dizziness or Nosebleed/epistaxis Cardio Chest Pain: No Palpitations: Yes Edema: None Muscle aches with walking: None Resp Respiratory: Positive for SOB with activity and SOB at rest; Negative for SOB orthopnea\SOB lying down GI GI: Negative nausea, vomiting, heartburn, bright, red blood in stools or black,tarry stools : Negative for hematuria Neuro Neuro: Positive for headache(s); Negative for dizziness, lightheadedness, near syncope, syncope, frequent falls, weakness or blurry vision Endo Endo: Positive for fatigue Cardiology Exam Const Appearance: cooperative, comfortable, no acute distress and well developed; Negative diaphoretic or ill appearing Nutritional Appearance: average body habitus Orientation: alert and oriented x3 Ambulating without assistive device Head Head: normal to inspection, normocephalic and atraumatic Ears: hearing grossly normal bilaterally Nose: external nose normal and Negative epistaxis Face and Sinus: face symmetric Eyes General: appearance normal, both eyes and all related structures Eyelids: eyelids normal Conjunctivae: conjunctivae normal; Negative scleral icterus EOM: EOM intact bilaterally Neck Neck: no JVD Carotids: normal carotid upstroke; Negative bruit Neck Mass: Negative Neck mass Chest Chest inspection: normal respiratory effort; Negative respiratory distress, audible wheezes or tachypneic Auscultation: Bilateral: Clear to Auscultation Cardio Rhythm: irregularly irregular Heart sounds: S1 normal and S2 normal; Negative rub, gallop or murmur Neuro General: patient alert, patient awake, patient oriented x3 and moves all extremities Skin Skin: no rashes or lesions noted Extremities Pulses: Normal: Right Posterior Tibial Pulse, Left Posterior Tibial Pulse, RightRadial Pulse and Left Radial Pulse Lower Extremity Edema: None: Bilateral Psych Psychological: normal affect Supplemental Info Supplemental Information Echocardiogram 08/21/24 Interpretation Summary Normal LV size. Left ventricular systolic function is normal. The left ventricular ejection fraction is 60 %. Mild concentric left ventricular hypertrophy. Pulmonary artery systolic pressure is 27 mmHg. Echocardiogram 04/14/22 ([facility]) Summary Left ventricle: The cavity size is normal. Wall thickness is mildly increased. Systolic function is normal. The estimated ejection fraction is 60%. Wall motionis normal; there are no regional wall motion abnormalities. Normal diastolic function. Mitral valve: There is mild regurgitation. Left atrium: The atrium is mildly dilated. Right ventricle: The RV systolic pressure by Doppler is 26mmHg. Coronary Angiography 08/18/24 Findings Coronary Artery Left Main (LM): 17.6 Left Anterior Descending (LAD): 221 Left Circumflex (LCX): 8 Right Coronary Artery (RCA): 38.7 Total Agatston Score: 285.3 Conclusion: Moderate two-vessel plaque disease noted. Labs: HDL Cholesterol, (40-) 41 mg/dL Cholesterol, (<=200) 156 mg/dL Triglycerides, (-199) 81 mg/dL Diagnostics: Electrocardiogram Echocardiogram Abdomen Ultrasound Coronary Angiography CT Past Visits: Cardiology Visit Today Assessment and Plan Assessment and Plan (1) New onset atrial fibrillation: Status: Acute Plan: Patient has new onset atrial fibrillation. His EKG from today demonstrates atrial fibrillation with a heart rate of 76 bpm. His echocardiogram on 08/21/2024 demonstrated ejection fraction of 60%, and normal atrial size. His [id number] score is 2. He is symptomatic with this: Fatigue, short of breath,and lightheaded. He is scheduled for a cardioversion on 03/02/2025. Plan: Patient will continue Eliquis 5 mg twice daily along with rate limiting medication, carvedilol. Instructions were provided to patient for day of cardioversion. Will plan for 1 week follow-up for EKG check after his cardioversion. (2) Hypertension: Status: Chronic Qualifiers: Hypertension type: primary hypertension Qualified Code(s): I10 - Essential (primary) hypertension Plan: Patient has a history of hypertension. He reports his blood pressure has been well-controlled up until recently in which he pursued evaluation in our office earlier this year. Ambulatory blood pressure monitor 01/30/2025 demonstrated a mean blood pressure 171/101. BP in office today appears controlled 121/82. Plan: Recommend patient continue antihypertensive agents including valsartan, hydrochlorothiazide, hydralazine and carvedilol. Recommend patient monitor blood pressure at home environment and notify our office with persistently elevated or low readings. Recommend patient monitor blood pressure status post cardioversion as well to assess if achieving normal rhythm helps improve this. (3) CAD (coronary artery disease): Status: Acute Qualifiers: Coronary Disease-Associated Artery/Lesion type: [place] artery [place] vs. transplanted heart: [place] heart Associated angina: without angina Qualified Code(s): I25.10 - Atherosclerotic heart disease of [place] coronary artery without angina pectoris Plan: Patient has known coronary artery disease. He was evaluated via coronary calciumscore on 08/12/2024, which demonstrated a total score of 285. With specific details including left main 17.6, LAD 221, left circumflex 8.03 and RCA 38.7. Plan: Once cardioverted, may consider stress or cardiac catheterization to further assess this. At this time, he will continue Zetia 10 mg daily, along with aggressive risk factor and lifestyle modifications. (4) Shortness of breath: Status: Acute Plan: Patient does acknowledge shortness of breath. I believe this is related to his atrial fibrillation. Will assess how patient feels status post cardioversion. (5) Dyslipidemia: Status: Chronic Plan: Patient has a history of dyslipidemia. His most recent lipid panel from 10/03/2024: Cholesterol 156, HDL 41, LDL 98, triglycerides 81. Would like to see his LDL less than 70 given his elevated calcium score. Plan: We should recheck lipid panel in approximately 2-3 months. Patient will continue Zetia along with risk factor and lifestyle modifications. Orders: Orders 12 Lead EKG performed by [facility] Today I48.91 - Unspecified atrial fibrillation Plan Patient will follow-up in 1 week post cardioversion for EKG check. Thank you for allowing me to participate in the care of your patient. Please don't hesitate to call if any issues arise. This note was generated using a voice recognition system and there may be incorrect words, spelling, or punctuation that were not noted when reviewing theoffice note prior to saving. Portions of this documentation were copied and pasted from previous office visitnotes to provide a cohesive continuity of the history. The note has been reviewed, edited, and updated, as necessary. Patient Instructions: Your cardioversion is scheduled for 03/02/2025 at 12:00 Arrival time 10:30AM Nothing to eat or drink after midnight. Take your morning medications with a small sip of water. DO NOT miss any doses of Eliquis EKG visit 1 weeks after procedure Plan Details Follow Up: 03/09/25 (EKG post DCCV) Coding Level of Care Code Off vis,est,level 4 Diagnoses New onset atrial fibrillation I48.91 Primary hypertension I10 Hypertension type: primary hypertension Coronary artery disease involving [place] coronary artery of [place] heart withoutangina pectoris I25.10 Coronary Disease-Associated Artery/Lesion type: [place] artery [place] vs. transplanted heart: [place] heart Associated angina: without angina Shortness of breath R06.02 Dyslipidemia E78.5 Coding Level of Care Code Off vis,est,level 4 Diagnoses New onset atrial fibrillation I48.91 Primary hypertension I10 Hypertension type: primary hypertension Coronary artery disease involving [place] coronary artery of [place] heart withoutangina pectoris I25.10 Coronary Disease-Associated Artery/Lesion type: [place] artery [place] vs. transplanted heart: [place] heart Associated angina: without angina Shortness of breath R06.02 Dyslipidemia E78.5 Clinical Quality Measures Falls Risk Screening/Assistive Devices Have you fallen in the past year?: No Cardiac Ejection fraction %: 60 02/25/25 0858 <Electronically signed by Naman ROUSSEAU> Date _ Naman ROUSSEAU 02/25/25 1216<Electronically signed by Jonathan Saleem MD> Cosigner Signature: Date (if applicable) Jonathan Saleem MD CC: Dr. Kevon Mackey DO ~ [facility] Work Phone: Reason for referral (narrative)* Diagnostic Procedure Only (Routine) - Pending Review Specialty Diagnoses / Procedures Referred By Contac t Referred To Contact MOLECULAR & FUNCTIONAL IMAGING Diagnoses Pain due to internal orthopedic prosthetic devices, implants and grafts, initial encounter (HCC) Procedures NM BONE 3 PHASE BONE &/JOINT IMAGING 3 [place] [address] [place] [id number] [facility] Functional [facility] [address] [place] [address] Referral ID Status Reason Start Date Expiration Date Visits Requested Visits Authorized [id number] Pending Review Auto-Generat ed Referral 12/28/2021 01/27/2023 1 1 * Diagnostic Procedure Only (Routine) - Pending Review Specialty Diagnoses / Procedures Referred By Contac t Referred To Contact XR IMAGING Diagnoses Knee swelling Procedures XR KNEE POST OP 3V AP/LAT/MERCHANT LEFT RADIOLOGIC EXAMINATION KNEE 3 [place] [address] [place] [address] Xr Imaging Referral ID Status Reason Start Date Expiration Date Visits Requested Visits Authorized [id number] Pending Review Auto-Generat ed Referral 12/28/2021 01/27/2023 1 1 [facility] for referral (narrative)* Diagnostic Procedure Only (Routine) - Closed Specialty Diagnoses / Procedures Referred By Contac t Referred To Contact MOLECULAR & FUNCTIONAL IMAGING Diagnoses Pain due to internal orthopedic prosthetic devices, implants and grafts, initial encounter (HCC) Procedures NM BONE 3 PHASE BONE &/JOINT IMAGING 3 [place] [address] [place] [address] Molecular & Functional Imaging [address] [place] [address] Referral ID Status Reason Start Date Expiration Date V isits Requested Visits Authorized [id number] Closed Auto-Generate d Referral 01/02/2022 06/03/2022 1 1 [facility] for referral (narrative)* Diagnostic Procedure Only (Routine) - Closed Specialty Diagnoses / Procedures Referred By Contac t Referred To Contact XR IMAGING Diagnoses Effusion of left knee Procedures XR KNEE POST OP 3V AP/LAT/MERCHANT LEFT RADIOLOGIC EXAMINATION KNEE 3 VIEWS Ge Maguire MD, PhD [address] [place] [address] Xr Imaging Referral ID Status Reason Start Date Expiration Date V isits Requested Visits Authorized [id number] Closed Auto-Generate d Referral 10/02/2022 06/03/2023 1 1 [facility] for referral (narrative)* Outpatient Procedure (Routine) - Closed Specialty Diagnoses / Procedures Referred By Contac t Referred To Contact [facility] Diagnoses Preoperative examination Procedures ECG COMPLETE ECG ROUTINE ECG W/LEAST 12 LDS W/I&R Loulou Taylor PA-C [address] [address] [facility] [place] [address] [place] [address] Referral ID Status Reason Start Date Expiration Date V isits Requested Visits Authorized [id number] Closed Auto-Generate d Referral 11/06/2022 11/06/2023 1 1 [facility] for referral (narrative)* Diagnostic Procedure Only (Routine) - Authorized Specialty Diagnoses / Procedures Referred By Contac t Referred To Contact XR IMAGING Diagnoses Chronic pain of left knee Procedures XR KNEE LIMITED 2V AP/LAT LEFT RADIOLOGIC EXAMINATION KNEE 1/2 VIEWS Mateo Sawant, NATY.ROAD TRAIN DRIVER [address] [address] Xr Imaging Referral ID Status Reason Start Date Expiration Date V isits Requested Visits Authorized [id number] Authorized 12/07/2022 06/03/2023 1 1 Electronically signed by Mateo Sawant HEMMING AND TACKING MACHINE OPERATOR.ROAD TRAIN DRIVER at 11/28/2022 7:50 AM EDT [facility] for referral (narrative)* Diagnostic Procedure Only (Routine) - Closed Specialty Diagnoses / Procedures Referred By Contac t Referred To Contact XR IMAGING Diagnoses Knee swelling Procedures XR KNEE POST OP 3V AP/LAT/MERCHANT LEFT RADIOLOGIC EXAMINATION KNEE 3 [place] [address] [place] [address] Xr Imaging [facility] Referral ID Status Reason Start Date Expiration Date V isits Requested Visits Authorized [id number] Closed Auto-Generate d Referral 12/28/2021 06/03/2022 1 1 [facility] for referral (narrative)* Diagnostic Procedure Only (Routine) - Closed Specialty Diagnoses / Procedures Referred By Contac t Referred To Contact XR IMAGING Diagnoses Effusion of left knee Procedures XR KNEE POST OP 3V AP/LAT/MERCHANT LEFT RADIOLOGIC EXAMINATION KNEE 3 VIEWS Ge Maguire MD [address] [place] [address] [place] [address] Referral ID Status Reason Start Date Expiration Date V isits Requested Visits Authorized [id number] Closed Auto-Generate d Referral 10/02/2022 06/03/2023 1 1 [facility] for referral (narrative)* Diagnostic Procedure Only (Routine) - Closed Specialty Diagnoses / Procedures Referred By Contac t Referred To Contact XR IMAGING Diagnoses Left knee pain, unspecified chronicity Procedures XR KNEE POST OP 3V AP/LAT/MERCHANT LEFT RADIOLOGIC EXAMINATION KNEE 3 VIEWS Mateo Sawant 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 [address] [place] [address] [place] [address] Referral ID Status Reason Start Date Expiration Date V isits Requested Visits Authorized [id number] Closed Auto-Generate d Referral 01/31/2024 06/03/2024 1 1 [facility] for referral (narrative)* Diagnostic Procedure Only (Routine) - Closed Specialty Diagnoses / Procedures Referred By Contac t Referred To Contact XR IMAGING Diagnoses Chronic pain of left knee Procedures XR KNEE POST OP 3V AP/LAT/MERCHANT LEFT RADIOLOGIC EXAMINATION KNEE 3 VIEWS Mateo Sawant 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 [address] [address] [place] [address] Referral ID Status Reason Start Date Expiration Date V isits Requested Visits Authorized [id number] Closed Auto-Generate d Referral 02/13/2023 03/13/2024 1 1 [facility] for referral (narrative)* Diagnostic Procedure Only (Routine) - Closed Specialty Diagnoses / Procedures Referred By Contac t Referred To Contact XR IMAGING Diagnoses Chronic pain of left knee Procedures XR KNEE POST OP 3V AP/LAT/MERCHANT LEFT RADIOLOGIC EXAMINATION KNEE 3 VIEWS Mateo Sawant APRN.CNP [address] [place] [phone] [place] [address] Referral ID Status Reason Start Date Expiration Date V isits Requested Visits Authorized [id number] Closed Auto-Generate d Referral 12/26/2022 01/24/2024 1 1 [facility] for referral (narrative)* Diagnostic Procedure Only (Routine) - Closed Specialty Diagnoses / Procedures Referred By Contac t Referred To Contact XR IMAGING Diagnoses Chronic pain of left knee Procedures XR KNEE LIMITED 2V AP/LAT LEFT RADIOLOGIC EXAMINATION KNEE 1/2 VIEWS Mateo Sawant APRN.CNP [address] [place] [phone] [place] [address] Referral ID Status Reason Start Date Expiration Date Visits Re quested Visits Authorized [id number] Closed 12/07/2022 06/03/2023 1 1 T [facility] for referral (narrative)* Diagnostic Procedure Only (Routine) - Closed Specialty Diagnoses / Procedures Referred By Contac t Referred To Contact XR IMAGING Diagnoses Left knee pain, unspecified chronicity Procedures XR KNEE GENERAL 4V AP BOTH/PA BOTH/LAT/MERC LEFT RADIOLOGIC EXAM KNEE COMPLETE 4/MORE VIEWS Ge Maguire MD [address] [place] [id number] [place] [address] Referral ID Status Reason Start Date Expiration Date V isits Requested Visits Authorized [id number] Closed Auto-Generated Referral Patient Cleared - INN Insurance Found 10/25/2021 11/24/2022 1 1 [facility] for referral (narrative)No reason for referral information [facility] Narrative* Diagnostic Procedure Only (Routine) - Closed Specialty Diagnoses / Procedures Referred By Contac t Referred To Contact MOLECULAR & FUNCTIONAL IMAGING Diagnoses Pain due to internal orthopedic prosthetic devices, implants and grafts, initial encounter (HCC) Procedures NM BONE 3 PHASE BONE &/JOINT IMAGING 3 [place] [address] [place] [address] Molecular & Functional Imaging [address] [place] [address] Referral ID Status Reason Start Date Expiration Date V isits Requested Visits Authorized [id number] Closed Auto-Generate d Referral 01/02/2022 06/03/2022 1 1 [facility] for visit Narrative* Diagnostic Procedure Only (Routine) - Closed Specialty Diagnoses / Procedures Referred By Contac t Referred To Contact XR IMAGING Diagnoses Knee swelling Procedures XR KNEE POST OP 3V AP/LAT/MERCHANT LEFT RADIOLOGIC EXAMINATION KNEE 3 [place] [address] [place] [address] [place] [address] Referral ID Status Reason Start Date Expiration Date V isits Requested Visits Authorized [id number] Closed Auto-Generate d Referral 12/28/2021 06/03/2022 1 1 [facility] for visit Narrative* Diagnostic Procedure Only (Routine) - Closed Specialty Diagnoses / Procedures Referred By Contac t Referred To Contact XR IMAGING Diagnoses Left knee pain, unspecified chronicity Procedures XR KNEE POST OP 3V AP/LAT/MERCHANT LEFT RADIOLOGIC EXAMINATION KNEE 3 VIEWS Mateo Sawant, NATY.ROAD TRAIN DRIVER [address] [place] [address] [place] [address] Referral ID Status Reason Start Date Expiration Date V isits Requested Visits Authorized [id number] Closed Auto-Generate d Referral 01/31/2024 06/03/2024 1 1 [facility] Diagnostic Procedure Only (Routine) - Closed Specialty Diagnoses / Procedures Referred By Sarthakac t Referred To Contact XR IMAGING Diagnoses Chronic pain of left knee Procedures XR KNEE LIMITED 2V AP/LAT LEFT RADIOLOGIC EXAMINATION KNEE 1/2 VIEWS Mateo Sawant 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 [address] [address] [place] [address] Referral ID Status Reason Start Date Expiration Date Visits Re quested Visits Authorized [id number] Closed 12/07/2022 06/03/2023 1 1 [facility] Summary Purpose Family History No Family History Records Found Relationship Condition Age at Onset Recorded Date/T rio Not Specified Alcoholism Unknown mother Arthritis Unknown Hypertension Unknown father Coronary artery disease Unknown Cardiac disease Unknown brother Malignant neoplasm Unknown Advance Directives No Advanced Directives Records Found Advance Directive Response Recorded Date/ Time Living Will No August 13, 2017 10:06am Power of Aircraft Rigging And Controls Mechanic Yes August 13 10:06am Documents on File Type Date Recorded 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 Yes February 29, 2024 9:30am Living Will Yes July 17 025 3:55pm Do you have a Healthcare Power of Aircraft Rigging And Controls Mechanic? Yes July 17, 2024 3:55pm Name of Medical Power of Aircraft Rigging And Controls Mechanic POA Spouse July 17, 2024 3:55pm Advance Directive Response Recorded Date/ Time Living Will Yes July 17 025 3:55pm Do you have a Healthcare Power of Aircraft Rigging And Controls Mechanic? Yes July 17, 2024 3:55pm Name of Medical Power of Aircraft Rigging And Controls Mechanic POA Spouse July 17, 2024 3:55pm Advance Directive Response Recorded Date/ Time Living Will Yes July 17 3:55pm Do you have a Healthcare Pow er of Aircraft Rigging And Controls Mechanic? Yes July 17, 2024 3:55pm Name of Medical Power of Aircraft Rigging And Controls Mechanic KELSEA Spouse July 17, 2024 3:55pm Do you have a Healthcare Pow er of Aircraft Rigging And Controls Mechanic? Yes November 13, 2024 2:50pm Name of Medical Power of Aircraft Rigging And Controls Mechanic , KYARA WHITE November 13, 2024 2:50pm Advance Directive Response Recorded Date/ Time Do you have a Healthcare Pow er of Aircraft Rigging And Controls Mechanic? Yes November 13, 2024 2:50pm Name of Medical Power of Aircraft Rigging And Controls Mechanic , KYARA WHITE November 13, 2024 2:50pm Advance Directive Response Recorded Date/ Time Do you have a Healthcare Pow er of Aircraft Rigging And Controls Mechanic? Yes November 13, 2024 2:50pm Name of Medical Power of Aircraft Rigging And Controls Mechanic , KYARA WHITE November 13, 2024 2:50pm Advance Directives on File Jewell bermudez 2024 10:36am Living Will Yes March 02, 2025 10:36am Do you have a Healthcare Pow er of Aircraft Rigging And Controls Mechanic? 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 July 22, 2024 10:35am Cirrhosis July 22, 2024 10:35am 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 September 10, 2024 8:08am Alcoholic cirrhosis of liver September 10, 2024 8:08am Dyslipidemia September 10, 2024 8:08 am Hypertension October 16, 2024 12:05 pm 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 November 17, 2024 5:51am Chief Complaint Admit Date E ORDER October 03, 2024 9:58am 3 M FU October 16, 2024 12:05 pm PER MACKEY January 28, 2025 7: 46am Reason for Visit Admit Date Hypertension October 16, 2024 12:05 pm 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 November 17, 2024 5:51am Chief Complaint Admit Date E ORDER October 03, 2024 9:58am 3 M FU October 16, 2024 12:05 pm PER MACKEY January 28, 2025 7: 46am MIGRAINE January 29, 2025 1: 03pm Reason for Visit Admit Date Hypertension October 16, 2024 12:05 pm 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 November 17, 2024 5:51am CAD (coronary artery disease) January 7:46am New onset atrial fibrillation January 7:46am Dyslipidemia January 28, 2025 7: 46am Hypertension January 28, 2025 7: 46am Chief Complaint Admit Date 3 M FU October 16, 2024 12:05 pm PER MACKEY January 28, 2025 7: 46am MIGRAINE January 29, 2025 1: 03pm 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 January 30, 2025 8:36am Reason for Visit Admit Date Hypertension October 16, 2024 12:05 pm 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 November 17, 2024 5:51am CAD (coronary artery disease) January 7:46am New onset atrial fibrillation January 7:46am Dyslipidemia January 28, 2025 7: 46am Hypertension January 28, 2025 7: 46am New onset atrial fibrillation January 1:03pm Alcoholic cirrhosis of liver January 1:03pm Chronic migraine January 29, 2025 1: 03pm Hypertension January 29, 2025 1: 03pm Chief Complaint Admit Date 3 M FU October 16, 2024 12:05 pm PER MACKEY January 28, 2025 7: 46am MIGRAINE January 29, 2025 1: 03pm 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 January 30, 2025 8:36am symptomatic a-fib February 10, 2025 9:58am Reason for Visit Admit Date Hypertension October 16, 2024 12:05 pm 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 November 17, 2024 5:51am CAD (coronary artery disease) January 7:46am New onset atrial fibrillation January 7:46am Dyslipidemia January 28, 2025 7: 46am Hypertension January 28, 2025 7: 46am New onset atrial fibrillation January 1:03pm Alcoholic cirrhosis of liver January 1:03pm Chronic migraine January 29, 2025 1: 03pm Hypertension January 29, 2025 1: 03pm CAD (coronary artery disease) February 10, 2025 9:58am New onset atrial fibrillation February 10, 2025 9:58am Shortness of breath February 10, 2025 9:58am Dyslipidemia February 10, 2025 9:58am Hypertension February 10, 2025 9:58am Chief Complaint Admit Date PER NARENDRA January 28, 2025 7: 46am MIGRAINE January 29, 2025 1: 03pm 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 January 30, 2025 8:36am symptomatic a-fib February 10, 2025 9:58am E ORDERS February 10, 2025 11:00am 4 WK FU February 25, 2025 7:52am AFIB March 02, 2025 10:09am Atrial fibrillation March 02, 2025 12:42pm Atrial fibrillation March 02, 2025 12:51pm Reason for Visit Admit Date 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 November 17, 2024 5:51am CAD (coronary artery disease) January 7:46am New onset atrial fibrillation January 7:46am Dyslipidemia January 28, 2025 7: 46am Hypertension January 28, 2025 7: 46am New onset atrial fibrillation January 1:03pm Alcoholic cirrhosis of liver January 1:03pm Chronic migraine January 29, 2025 1: 03pm Hypertension January 29, 2025 1: 03pm CAD (coronary artery disease) February 10, 2025 9:58am New onset atrial fibrillation February 10, 2025 9:58am Shortness of breath February 10, 2025 9:58am Dyslipidemia February 10, 2025 9:58am Hypertension February 10, 2025 9:58am CAD (coronary artery disease) February 25, 2025 7:52am New onset atrial fibrillation February 25, 2025 7:52am Shortness of breath February 25, 2025 7:52am Dyslipidemia February 25, 2025 7:52am Hypertension February 25, 2025 7:52am Chief Complaint Admit Date PER [facility] January 28, 2025 7: 46am MIGRAINE January 29, 2025 1: 03pm 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 January 30, 2025 8:36am symptomatic a-fib February 10, 2025 9:58am E ORDERS February 10, 2025 11:00am 4 WK FU February 25, 2025 7:52am AFIB March 02, 2025 10:09am Atrial fibrillation March 02, 2025 12:42pm Atrial fibrillation March 02, 2025 12:51pm EKG post DCCV March 09, 2025 8: 45am Chief Complaint Admit Date PER MACKEY January 28, 2025 7: 46am MIGRAINE January 29, 2025 1: 03pm 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 January 30, 2025 8:36am symptomatic a-fib February 10, 2025 9:58am E ORDERS February 10, 2025 11:00am 4 WK FU February 25, 2025 7:52am AFIB March 02, 2025 10:09am Atrial fibrillation March 02, 2025 12:42pm Atrial fibrillation March 02, 2025 12:51pm EKG post DCCV March 09, 2025 8: 45am follow up March 12, 2025 7: 46am Medications Administered Section Inactive Administered Medications - [...] Referral Specialty Diagnoses / Procedures Referred By Contac t Referred To Contact [facility] Diagnoses Status post revision of total replacement of left knee Stiffness of left knee Procedures CONSULT TO PHYSICAL THERAPY PHYSICAL THERAPY EVALUATION HIGH COMPLEX 45 MINS Mateo Sawant 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 [address] [facility], [address] [place] [address] [facility], [facility] [address] [place] [address] Referral ID Status Reason Start Date Expiration Date Visits Requested Visits Authorized [id number] Pending Review Auto-Generat ed Referral 12/07/2022 12/07/2023 1 1 Additional Source Comments (unrecognized sect ion and content) No Status Records FoundNo Status Records FoundNo Status Records FoundNo Status Records FoundNo Status Records FoundNo Status Records FoundNo Status Records FoundNo Status Records Found INFORMATION SOURCE (unrecogn ized section and content) DATE CREATED AUTHOR 07/23/2018 [facility] DATE CREATED AUTHOR AUTHOR'S ORGANIZ ATION 07/23/2018 [facility] DATE CREATED AUTHOR AUTHOR'S ORGANIZ ATION 01/04/2024 [facility] ([place]) DATE CREATED AUTHOR AUTHOR'S ORGANIZ ATION 02/05/2024 [facility] DATE CREATED AUTHOR AUTHOR'S ORGANIZ ATION 02/05/2024 [facility] DATE CREATED AUTHOR AUTHOR'S ORGANIZ ATION 01/16/2025 [facility] DATE CREATED AUTHOR AUTHOR'S ORGANIZ ATION 04/10/2025 [facility] DATE CREATED AUTHOR AUTHOR'S ORGANIZ ATION 04/16/2025 [facility] Care Team (unrecognized sect ion and content) Aircraft Stress Analyst Relationship Specialty Start Date End Date Mark Smith DO [address] [place], [place] [id number] PCP - General Family Practice 03/19/18 Aircraft Stress Analyst Relationship Specialty Start Date End Date Mark Smith DO [address] [place] [id number] PCP - General Family Practice 03/19/18 Aircraft Stress Analyst Relationship Specialty Start Date End Date Mark Smith, [address] [place] [address] PCP - General Family Practice 03/19/18 Aircraft Stress Analyst Relationship Specialty Start Date End Date Mark Smith, DO [address] [place] [address] PCP - General Family Practice 03/19/18 Aircraft Stress Analyst Relationship Specialty Start Date End Date Mark Smith, DO [address] [place] [address] PCP - General Family Practice 03/19/18 Aircraft Stress Analyst Relationship Specialty Start Date End Date Mark Smith, DO [address] [place] [address] PCP - General Family Practice 03/19/18 Aircraft Stress Analyst Relationship Specialty Start Date End Date Mark Smith, DO [address] [place] [address] PCP - General Family Medicine 03/19/18 Aircraft Stress Analyst Relationship Specialty Start Date End Date Mark Smith, DO [address] [place] [address] PCP - General Family Medicine 03/19/18 Aircraft Stress Analyst Relationship Specialty Start Date End Date Kevon Mackey, DO [address] [place] [address] PCP - General Family Medicine 10/10/22 Aircraft Stress Analyst Relationship Specialty Start Date End Date Kevon Mackey DO [address] [place] [address] PCP - General Family Medicine 10/10/22 Aircraft Stress Analyst Relationship Specialty Start Date End Date Kevon Mackey, DO [address] [place] [address] PCP - General Family Medicine 10/10/22 Aircraft Stress Analyst Relationship Specialty Start Date End Date Kevon Mackey, DO [address] [place] [address] PCP - General Family Medicine 10/10/22 Aircraft Stress Analyst Relationship Specialty Start Date End Date Kevon Mackey DO [address] [place] [address] PCP - General Family Medicine 10/10/22 Aircraft Stress Analyst Relationship Specialty Start Date End Date Kevon Mackey DO [address] [place] [address] PCP - General Family Medicine 10/10/22 Aircraft Stress Analyst Relationship Specialty Start Date End Date Kevon Mackey DO [address] [place] [address] PCP - General Family Medicine 10/10/22 Aircraft Stress Analyst Relationship Specialty Start Date End Date Kevon Mackey DO [address] [place] [address] PCP - General Family Medicine 10/10/22 Aircraft Stress Analyst Relationship Specialty Start Date End Date Kevon Mackey DO [address] [place] [address] PCP - General Family Medicine 10/10/22 Aircraft Stress Analyst Relationship Specialty Start Date End Date Kevon Mackey DO [address] [place] [address] PCP - General Family Medicine 10/10/22 Aircraft Stress Analyst Relationship Specialty Start Date End Date Kevon Mackey DO [address] [place] [address] PCP - General Family Medicine 10/10/22 Aircraft Stress Analyst Relationship Specialty Start Date End Date Kevon Mackey DO [address] [place] [id number] PCP - General Family Medicine 10/10/22 Aircraft Stress Analyst Relationship Specialty Start Date End Date Mark Smith DO [address] [place] [address] PCP - General Family Medicine 03/19/18 10/09/22 Aircraft Stress Analyst Relationship Specialty Start Date End Date Mark Smith DO [address] [place] [address] PCP - General Family Medicine 03/19/18 10/09/22 Team Status: Active Member Role Status Dates Dr. Junito García MD Family Provider Active Dr. Kevon Maceky DO Primary Care Provider Active Team Status: Active Member Role Status Dates Dr. Kevon Mackey DO Primary Care Provider Active Dr. Jonathan Saleem MD Attending Provider Active Dr. Sarkis Mcdonald MD Referring Provider Active Team Status: Inactive Member Role Status Dates Dr. Sarkis Mcdonald MD Attending Provider, Referring Pr ovider Active Dr. Kevon Mackey DO Primary Care Provider Active Aircraft Stress Analyst Relationship Specialty Start Date End Date Kevon Mackey DO [address] [place] [address] PCP - General Family Medicine 10/10/22 Aircraft Stress Analyst Relationship Specialty Start Date End Date Kevon Mackey DO [address] [place] [address] PCP - General Family Medicine 10/10/22 Aircraft Stress Analyst Relationship Specialty Start Date End Date Kevon Mackey DO [address] [place] [address] PCP - General Family Medicine 10/10/22 Aircraft Stress Analyst Relationship Specialty Start Date End Date Mark Smith DO [address] [place] [address] PCP - General Family Medicine 03/19/18 10/09/22 [...] 03, 2024 End: October 03, 2024 Adalgisa Gomez RN FACULTY, RN FACULTY-C Attending Provider Active Start: October 03, 2024 End: October 03, 2024 Adalgisa Gomez RN FACULTY, RN FACULTY-C Referring Provider Active Start: October 03, 2024 [...] October 16, 2024 End: October 16, 2024 Team Status: Inactive Member Role Status Dates Dr. Kevon Mackey DO Primary Care Provider Active Start: November 17, 2024 End: November 17, 2024 Dr. Kevon Mackey DO Referring Provider Active Start: November 17, 2024 End: November 17, 2024 Dr. Bismark Montoya DO Attending Provider Active Start: November 17, 2024 End: November 17, 2024 Team Status: Active Member Role Status Dates Dr. Kevon Mackey DO Primary Care Provider Active Start: November 17, 2024 Dr. Kevon Mackey DO Referring Provider Active Start: November 17, 2024 Dr. Bismark Montoya DO Attending Provider Active Start: November 17, 2024 Dr. Bismark Montoya DO Other Provider Active St art: November 17, 2024 Team Status: Active Member Role/Relationship Status Dates Dr. Kevon Mackey DO Primary Care Provider Active Team Status: Inactive Member Role/Relationship Status Dates Dr. Kevon Mackey DO Primary Care Provider Active Start: October 03, 2024 End: October 03, 2024 Adalgisa Gomez RN FACULTY, RN FACULTY-C Attending Provider Active Start: October 03, 2024 End: October 03, 2024 Adalgisa Gomez RN FACULTY, RN FACULTY-C Referring Provider Active Start: October 03, 2024 End: October 03, 2024 Team Status: Inactive Member Role/Relationship Status Dates Dr. Kevon Mackey DO Primary Care Provider Active Start: October 16, 2024 End: October 16, 2024 Dr. Kevon Mackey DO Referring Provider Active Start: October 16, 2024 End: October 16, 2024 Dr. Jonathan Saleem MD Attending Provider Active S tart: October 16, 2024 End: October 16, 2024 Team Status: Inactive Member Role/Relationship Status Dates Dr. Kevon Mackey DO Primary Care Provider Active Start: November 17, 2024 End: November 17, 2024 Dr. Kevon Mackey DO Referring Provider Active Start: November 17, 2024 End: November 17, 2024 Dr. Bismark Montoya DO Attending Provider Active Start: November 17, 2024 End: November 17, 2024 Team Status: Active Member Role/Relationship Status Dates Dr. Kevon Mackey DO Primary Care Provider Active Start: November 17, 2024 Dr. Kevon Mackey DO Referring Provider Active Start: November 17, 2024 Dr. Bismark Montoya DO Attending Provider Active Start: November 17, 2024 Dr. Bismark Montoya DO Other Provider Active St art: November 17, 2024 Team Status: Inactive Member Role/Relationship Status Dates Dr. Kevon Mackey DO Primary Care Provider Active Start: January 28, 2025 End: January 28, 2025 Dr. Kevon Mackey DO Referring Provider Active Start: January 28, 2025 End: January 28, 2025 SOHAM Freeman Attending Provider Active St art: January 28, 2025 End: January 28, 2025 Team Status: Inactive Member Role/Relationship Status Dates Dr. Kevon Mackey DO Primary Care Provider Active Start: January 29, 2025 End: January 29, 2025 Dr. Kevon Mackey DO Referring Provider Active Start: January 29, 2025 End: January 29, 2025 CRISTOPHER Goldstein Attending Provider Active S tart: January 29, 2025 End: January 29, 2025 Team Status: Inactive Member Role/Relationship Status Dates Dr. Kevon Mackey DO Primary Care Provider Active Start: October 16, 2024 End: October 16, 2024 Dr. Kevon Mackey DO Referring Provider Active Start: October 16, 2024 End: October 16, 2024 Dr. Jonathan Saleem MD Attending Provider Active S tart: October 16, 2024 End: October 16, 2024 Team Status: Inactive Member Role/Relationship Status Dates Dr. Kevon Mackey DO Primary Care Provider Active Start: November 17, 2024 End: November 17, 2024 Dr. Kevon Mackey DO Referring Provider Active Start: November 17, 2024 End: November 17, 2024 Dr. Bismark Montoya DO Attending Provider Active Start: November 17, 2024 End: November 17, 2024 Team Status: Active Member Role/Relationship Status Dates Dr. Kevon Mackey DO Primary Care Provider Active Start: November 17, 2024 Dr. Kevon Mackey DO Referring Provider Active Start: November 17, 2024 Dr. Bismark Montoya DO Attending Provider Active Start: November 17, 2024 Dr. Bismark Montoya DO Other Provider Active St art: November 17, 2024 Team Status: Inactive Member Role/Relationship Status Dates Dr. Kevon Mackey DO Primary Care Provider Active Start: January 28, 2025 End: January 28, 2025 Dr. Kevon Mackey DO Referring Provider Active Start: January 28, 2025 End: January 28, 2025 SOHAM Freeman Attending Provider Active St art: January 28, 2025 End: January 28, 2025 Team Status: Inactive Member Role/Relationship Status Dates Dr. Kevon Mackey DO Primary Care Provider Active Start: January 29, 2025 End: January 29, 2025 Dr. Kevon Mackey DO Referring Provider Active Start: January 29, 2025 End: January 29, 2025 CRISTOPHER Goldstein Attending Provider Active S tart: January 29, 2025 End: January 29, 2025 Team Status: Inactive Member Role/Relationship Status Dates Dr. Kevon Mackey DO Primary Care Provider Active Start: January 30, 2025 End: January 30, 2025 Dr. Jonathan Saleem MD Attending Provider Active S tart: January 30, 2025 End: January 30, 2025 Dr. Jonathan Saleem MD Referring Provider Active S tart: January 30, 2025 End: January 30, 2025 Team Status: Inactive Member Role/Relationship Status Dates Dr. Kevon Mackey DO Primary Care Provider Active Start: February 10, 2025 End: February 10, 2025 Dr. Kevon Mackey DO Referring Provider Active Start: February 10, 2025 End: February 10, 2025 MITZI Stock NPC Attending Provider Active Start: February 10, 2025 End: February 10, 2025 Team Status: Active Member Role/Relationship Status Dates Dr. Kevon Mackey DO Primary care physician Active Team Status: Inactive Member Role/Relationship Status Dates Dr. Kevon Mackey DO Primary care physician Active Start: November 17, 2024 End: November 17, 2024 Dr. Kevon Mackey DO Referring Provider Active Start: November 17, 2024 End: November 17, 2024 Dr. Bismark Montoya DO Attending physician Active Start: November 17, 2024 End: November 17, 2024 Team Status: Active Member Role/Relationship Status Dates Dr. Kevon Mackey DO Primary care physician Active Start: November 17, 2024 Dr. Kevon Mackey DO Referring Provider Active Start: November 17, 2024 Dr. Bismark Montoya DO Attending physician Active Start: November 17, 2024 Dr. Bismark Montoya DO Nurse Practitioner Active Start: November 17, 2024 Team Status: Inactive Member Role/Relationship Status Dates Dr. Kevon Mackey DO Primary care physician Active Start: January 28, 2025 End: January 28, 2025 Dr. Kevon Mackey DO Referring Provider Active Start: January 28, 2025 End: January 28, 2025 SOHAM Freeman Attending physician Active S tart: January 28, 2025 End: January 28, 2025 Team Status: Inactive Member Role/Relationship Status Dates Dr. Kevon Mackey DO Primary care physician Active Start: January 29, 2025 End: January 29, 2025 Dr. Kevon Mackey DO Referring Provider Active Start: January 29, 2025 End: January 29, 2025 CRISTOPHER Goldstein Attending physician Active Start: January 29, 2025 End: January 29, 2025 Team Status: Inactive Member Role/Relationship Status Dates Dr. Kevon Mackey DO Primary care physician Active Start: January 30, 2025 End: January 30, 2025 Dr. Jonathan Saleem MD Attending physician Active Start: January 30, 2025 End: January 30, 2025 Dr. Jonathan Saleem MD Referring Provider Active S tart: January 30, 2025 End: January 30, 2025 Team Status: Inactive Member Role/Relationship Status Dates Dr. Kevon Mackey DO Primary care physician Active Start: February 10, 2025 End: February 10, 2025 Dr. Kevon Mackey DO Referring Provider Active Start: February 10, 2025 End: February 10, 2025 Adalgisa Gomez RN FACULTY, RN FACULTY-C Attending physician Active Start: February 10, 2025 End: February 10, 2025 Team Status: Inactive Member Role/Relationship Status Dates Dr. Kevon Mackey DO Primary care physician Active Start: February 10, 2025 End: February 10, 2025 Dr. Jasson Doan MD Attending physician Active Start: February 10, 2025 End: February 10, 2025 Dr. Jasson Doan MD Referring Provider Active Start: February 10, 2025 End: February 10, 2025 Team Status: Inactive Member Role/Relationship Status Dates Dr. Kevon Mackey DO Primary care physician Active Start: February 25, 2025 End: February 25, 2025 Dr. Kevon Mackey DO Referring Provider Active Start: February 25, 2025 End: February 25, 2025 SOHAM Freeman Attending physician Active S tart: February 25, 2025 End: February 25, 2025 Team Status: Inactive Member Role/Relationship Status Dates Dr. Kevon Mackey DO Primary care physician Active Start: March 02, 2025 End: March 02, 2025 Dr. Jonathan Saleem MD Attending physician Active Start: March 02, 2025 End: March 02, 2025 Dr. Jonathan Saleem MD Referring Provider Active S tart: March 02, 2025 End: March 02, 2025 Adalgisa Gomez RN FACULTY, RN FACULTY-C Nurse Practitioner Active Start: March 02, 2025 End: March 02, 2025 Team Status: Active Member Role/Relationship Status Dates Dr. Kevon Mackey DO Primary care physician Active Start: March 02, 2025 Dr. Jonathan Saleem MD Attending physician Active Start: March 02, 2025 Dr. Jonathan Saleem MD Referring Provider Active S tart: March 02, 2025 Dr. Jonathan Saleem MD Nurse Practitioner Active S tart: March 02, 2025 Adalgisa Gomez NP, RN FACULTY-C Nurse Practitioner Active Start: March 02, 2025 Team Status: Active Member Role/Relationship Status Dates Dr. Kevon Mackey DO Primary care physician Active Start: March 02, 2025 Dr. Jonathan Saleem MD Referring Provider Active S tart: March 02, 2025 Dr. Jonathan Saleem MD Nurse Practitioner Active S tart: March 02, 2025 Adalgisa Gomez RN FACULTY, RN FACULTY-C Nurse Practitioner Active Start: March 02, 2025 Dr. Fernando Edwards DO Attending physician Active Start: March 02, 2025 Team Status: Inactive Member Role/Relationship Status Dates Dr. Kevon Mackey DO Primary care physician Active Start: March 09, 2025 End: March 09, 2025 Dr. Kevon Mackey DO Referring Provider Active Start: March 09, 2025 End: March 09, 2025 SOHAM Freeman Attending physician Active S tart: March 09, 2025 End: March 09, 2025 Team Status: Inactive Member Role/Relationship Status Dates Dr. Kevon Mackey DO Primary care physician Active Start: March 12, 2025 End: March 12, 2025 Dr. Kevon Mackey DO Referring Provider Active Start: March 12, 2025 End: March 12, 2025 Dr. Ge Franz MD Attending physician Active Start: March 12, 2025 End: March 12, 2025 Goals (unrecognized section and content) Goals may be documented in a n alternate section Source Comments (unrecognize d section and content) In the event this informatio n is protected by the Federal Confidentiality of Alcohol and Drug Abuse Patient Records regulations: The Federal rules restrict any use of the information to criminally investigate or prosecute any alcohol or drug abuse patient.[facility] the event this information is protected by the Federal Confidentiality of Alcohol and Drug Abuse Patient Records regulations: The Federal rules restrict any use of the information to criminally investigate or prosecute any alcohol or drug abuse patient.[facility] the event this information is protected by the Federal Confidentiality of Alcohol and Drug Abuse Patient Records regulations: The Federal rules restrict any use of the information to criminally investigate or prosecute any alcohol or drug abuse patient.[facility] the event this information is protected by the Federal Confidentiality of Alcohol and Drug Abuse Patient Records regulations: The Federal rules restrict any use of the information to criminally investigate or prosecute any alcohol or drug abuse patient.[facility] the event this information is protected by the Federal Confidentiality of Alcohol and Drug Abuse Patient Records regulations: The Federal rules restrict any use of the information to criminally investigate or prosecute any alcohol or drug abuse patient.[facility] the event this information is protected by the Federal Confidentiality of Alcohol and Drug Abuse Patient Records regulations: The Federal rules restrict any use of the information to criminally investigate or prosecute any alcohol or drug abuse patient.[facility] the event this information is protected by the Federal Confidentiality of Alcohol and Drug Abuse Patient Records regulations: The Federal rules restrict any use of the information to criminally investigate or prosecute any alcohol or drug abuse patient.[facility] the event this information is protected by the Federal Confidentiality of Alcohol and Drug Abuse Patient Records regulations: The Federal rules restrict any use of the information to criminally investigate or prosecute any alcohol or drug abuse patient.[facility] the event this information is protected by the Federal Confidentiality of Alcohol and Drug Abuse Patient Records regulations: The Federal rules restrict any use of the information to criminally investigate or prosecute any alcohol or drug abuse patient.[facility] the event this information is protected by the Federal Confidentiality of Alcohol and Drug Abuse Patient Records regulations: The Federal rules restrict any use of the information to criminally investigate or prosecute any alcohol or drug abuse patient.[facility] the event this information is protected by the Federal Confidentiality of Alcohol and Drug Abuse Patient Records regulations: The Federal rules restrict any use of the information to criminally investigate or prosecute any alcohol or drug abuse patient.[facility] the event this information is protected by the Federal Confidentiality of Alcohol and Drug Abuse Patient Records regulations: The Federal rules restrict any use of the information to criminally investigate or prosecute any alcohol or drug abuse patient.[facility]In the event this information is protected by the Federal Confidentiality of Alcohol and Drug Abuse Patient Records regulations: The Federal rules restrict any use of the information to criminally investigate or prosecute any alcohol or drug abuse patient.[facility]In the event this information is protected by the Federal Confidentiality of Alcohol and Drug Abuse Patient Records regulations: The Federal rules restrict any use of the information to criminally investigate or prosecute any alcohol or drug abuse patient.[facility]In the event this information is protected by the Federal Confidentiality of Alcohol and Drug Abuse Patient Records regulations: The Federal rules restrict any use of the information to criminally investigate or prosecute any alcohol or drug abuse patient.[facility]In the event this information is protected by the Federal Confidentiality of Alcohol and Drug Abuse Patient Records regulations: The Federal rules restrict any use of the information to criminally investigate or prosecute any alcohol or drug abuse patient.[facility] the event this information is protected by the Federal Confidentiality of Alcohol and Drug Abuse Patient Records regulations: The Federal rules restrict any use of the information to criminally investigate or prosecute any alcohol or drug abuse patient.[facility]In the event this information is protected by the Federal Confidentiality of Alcohol and Drug Abuse Patient Records regulations: The Federal rules restrict any use of the information to criminally investigate or prosecute any alcohol or drug abuse patient.[facility]In the event this information is protected by the Federal Confidentiality of Alcohol and Drug Abuse Patient Records regulations: The Federal rules restrict any use of the information to criminally investigate or prosecute any alcohol or drug abuse patient.[facility]In the event this information is protected by the Federal Confidentiality of Alcohol and Drug Abuse Patient Records regulations: The Federal rules restrict any use of the information to criminally investigate or prosecute any alcohol or drug abuse patient.[facility]In the event this information is protected by the Federal Confidentiality of Alcohol and Drug Abuse Patient Records regulations: The Federal rules restrict any use of the information to criminally investigate or prosecute any alcohol or drug abuse patient.[facility]In the event this information is protected by the Federal Confidentiality of Alcohol and Drug Abuse Patient Records regulations: The Federal rules restrict any use of the information to criminally investigate or prosecute any alcohol or drug abuse patient.[facility]In the event this information is protected by the Federal Confidentiality of Alcohol and Drug Abuse Patient Records regulations: The Federal rules restrict any use of the information to criminally investigate or prosecute any alcohol or drug abuse patient.[facility]In the event this information is protected by the Federal Confidentiality of Alcohol and Drug Abuse Patient Records regulations: The Federal rules restrict any use of the information to criminally investigate or prosecute any alcohol or drug abuse patient.[facility]In the event this information is protected by the Federal Confidentiality of Alcohol and Drug Abuse Patient Records regulations: The Federal rules restrict any use of the information to criminally investigate or prosecute any alcohol or drug abuse patient.[facility]In the event this information is protected by the Federal Confidentiality of Alcohol and Drug Abuse Patient Records regulations: The Federal rules restrict any use of the information to criminally investigate or prosecute any alcohol or drug abuse patient.[facility]In the event this information is protected by the Federal Confidentiality of Alcohol and Drug Abuse Patient Records regulations: The Federal rules restrict any use of the information to criminally investigate or prosecute any alcohol or drug abuse patient.[facility]In the event this information is protected by the Federal Confidentiality of Alcohol and Drug Abuse Patient Records regulations: The Federal rules restrict any use of the information to criminally investigate or prosecute any alcohol or drug abuse patient.[facility]In the event this information is protected by the Federal Confidentiality of Alcohol and Drug Abuse Patient Records regulations: The Federal rules restrict any use of the information to criminally investigate or prosecute any alcohol or drug abuse patient.[facility]In the event this information is protected by the Federal Confidentiality of Alcohol and Drug Abuse Patient Records regulations: The Federal rules restrict any use of the information to criminally investigate or prosecute any alcohol or drug abuse patient.[facility]In the event this information is protected by the Federal Confidentiality of Alcohol and Drug Abuse Patient Records regulations: The Federal rules restrict any use of the information to criminally investigate or prosecute any alcohol or drug abuse patient.[facility] Reason for Visit (unrecogniz ed section and content) Reason Comments Established Patient Knee Pain Reason Comments Established Patient Knee Pain Swelling Specialty Diagnoses / Procedures Referred By Contac t Referred To Contact ORTHOPAEDIC SURGERY Diagnoses Left knee injury Procedures Ortho appointment Ge Maguire MD [address] [address] Referral ID Status Reason Start Date Expiration Date V isits Requested Visits Authorized [id number] Closed Financial Clearance Required - OON Payor OON/Self Pay Override 10/26/2021 12/26/2021 1 1 Reason Comments Established Patient Knee Pain Swelling Specialty Diagnoses / Procedures Referred By Contac t Referred To Contact Orthopedics / ORTHOPAEDIC SURGERY Diagnoses f/u left knee pain Procedures ABEL EST[place] [address] [place] [address] Referral ID Status Reason Start Date Expiration Date V isits Requested Visits Authorized [id number] Pending Review 12/28/2021 03/28/2022 1 1 Specialty Diagnoses / Procedures Referred By Contac t Referred To Contact Orthopedics / ORTHOPAEDIC SURGERY Diagnoses per Procedures ABEL ESTABLISH Ge Maguire MD [address] [place] [address] Suzette Paul PA-C [address] [place] [id number] Referral ID Status Reason Start Date Expiration Date Visits Re quested Visits Authorized [id number] Closed 12/30/2021 06/03/2022 1 1 Reason Comments Established Patient Knee Pain Swelling Specialty Diagnoses / Procedures Referred By Contac t Referred To Contact Orthopedics / ORTHOPAEDIC SURGERY Diagnoses LEFT KNEE PAIN, SWELLING - saw Dr. Maguire in Jan. of last year, same problem. Procedures OFFICE/OUTPATIENT ESTABLISHED MOD MDM 30-39 MIN ABEL Ge Flores MD, PhD [address] [place] [address] Referral ID Status Reason Start Date Expiration Date Visits Re quested Visits Authorized [id number] Closed 10/02/2022 06/03/2023 1 1 Reason Comments Appointment Reason Comments New Pain Reason Comments Consult Reason Comments Patient Question Reason Onset Date Comments Refill Request 12/01/2022 Reason Comments Established Patient Follow Up Post Op Knee Replacement Specialty Diagnoses / Procedures Referred By Contac t Referred To Contact Orthopedics / ORTHOPAEDIC SURGERY Diagnoses S/P L-RTKA 11/22/22 Procedures POST OP Self Matoe Sawant APRN.[facility] [address] [address] Referral ID Status Reason Start Date Expiration Date Visits Re quested Visits Authorized [id number] Closed 12/07/2022 06/03/2023 1 1 Reason Comments Established Patient Follow Up Post Op Knee Replacement Reason Comments Radio Gen RMP Specialty Diagnoses / Procedures Referred By Contac t Referred To Contact XR IMAGING Diagnoses Effusion of left knee Procedures XR KNEE POST OP 3V AP/LAT/MERCHANT LEFT RADIOLOGIC EXAMINATION KNEE 3 VIEWS Ge Maguire MD [address] [place] [address] [place] [address] Referral ID Status Reason Start Date Expiration Date V isits Requested Visits Authorized [id number] Closed Auto-Generate d Referral 10/02/2022 06/03/2023 1 1 Reason Comments Established Patient Follow Up Knee Pain Knee Replacement Post Op Specialty Diagnoses / Procedures Referred By Contac t Referred To Contact Radiology / [facility] Diagnoses Presence of left artificial knee joint L knee Procedures RADIOLOGIC EXAMINATION KNEE 3 VIEWS XR [facility] Radio [place] [address] [place] [address] Referral ID Status Reason Start Date Expiration Date Visits Re quested Visits Authorized [id number] Closed 02/27/2023 06/03/2023 1 1 Specialty Diagnoses / Procedures Referred By Contac t [facility] Diagnoses Status post revision of total replacement of left knee Pain in left knee L knee Procedures X-RAY KNEE 2 VW XR ABEL [facility]AL Kevon Mackey, [address] [facility] [place] [address] [place] [address] [place] [address] Referral ID Status Reason Start Date Expiration Date Visits Re quested Visits Authorized [id number] Closed 01/09/2023 06/03/2023 1 1 Specialty Diagnoses / Procedures Referred By Contac t Referred To Contact XR IMAGING Diagnoses Left knee pain, unspecified chronicity Procedures XR KNEE GENERAL 4V AP BOTH/PA BOTH/LAT/MERC LEFT RADIOLOGIC EXAM KNEE COMPLETE 4/MORE VIEWS Ge Maguire MD [address] [address] [place] [address] Referral ID Status Reason Start Date Expiration Date V isits Requested Visits Authorized [id number] Closed Auto-Generated Referral Patient Cleared - INN Insurance Found 10/25/2021 11/24/2022 1 1 Care Team (unrecognized sect ion and content) Care Team Personnel Name: ANA VILLA MD Position: P4 Physician - Urologist Member Role: Urologist Address: Address: [address] [place] [address]- Name: ANITA BARNHART MD Position: CV Physician Med Service: Active Provider Member Role: Neurologist Address: Address: [address] [place] [address]- Name: EDILBERTO FRYE MD Position: Physician Med Service: Admitting Member Role: Power Station Operator Address: Address: [address] [facility] [address] [place] [address]- [place] Name: MARK SMITH DO Position: P4 Physician - Primary Care Med Service: Active Provider Member Role: Primary Care Physician Address: Address: [address] [place] [address] Name: LENARD ASENCIO MD Position: P4 Oncology Provider Med Service: AMB HEM/ONC Member Role: Oncologist Address: Address: [address] [place] [address] Hematology [place] [address]- Care Team Related Persons Name: KYARA PEPE Care Team Personnel Name: ANA VILLA MD Position: P4 Physician - Urologist Member Role: Urologist Address: Address: [address] [place] [address]- Name: ANITA BARNHART MD Position: CV Physician Med Service: Active Provider Member Role: Neurologist Address: Address: [address] [place] [address]- Name: EDILBERTO FRYE MD Position: Physician Med Service: Admitting Member Role: Power Station Operator Address: Address: [address] [facility] [address] [place] [address]- [place] Name: MARK SMITH DO Position: P4 Physician - Primary Care Med Service: Active Provider Member Role: Primary Care Physician Address: Address: [address] [place] [id number] [place] [address] Name: LENARD ASENCIO MD Position: P4 Oncology Provider Med Service: AMB HEM/ONC Member Role: Oncologist Address: Address: [address] [place] [address] Hematology and Oncology [place] [id number] Care Team Related Persons Name: KYARA PEPE Care Team Personnel Name: ANA VILLA MD Position: P4 Physician - Urologist Member Role: Urologist Address: Address: [address] [place], [place] [id number]- Name: ANITA BARNHART MD Position: CV Physician Med Service: Active Provider Member Role: Neurologist Address: Address: [address] [place], [place] [id number]- Name: EDILBERTO FRYE MD Position: Physician Med Service: Admitting Member Role: Power Station Operator Address: Address: [address] [facility] [address] [place] [address]- [place] Name: MARK SMITH DO Position: P4 Physician - Primary Care Med Service: Active Provider Member Role: Primary Care Physician Address: Address: [address] [place] [id number] [place] [address] Name: LENARD ASENCIO MD Position: P4 Oncology Provider Med Service: AMB HEM/ONC Member Role: Oncologist Address: Address: [address] [place] [address] Hematology and Oncology [place] [id number]- Care Team Related Persons Name: MY KYARA Care Team Personnel Name: ANA VILLA MD Position: P4 Physician - Urologist Member Role: Urologist Address: Address: [address] [place], [place] [id number]- Name: ANITA BARNHART MD Position: CV Physician Med Service: Active Provider Member Role: Neurologist Address: Address: [address] [place], [place] [id number]- Name: EDILBERTO FRYE MD Position: Physician Med Service: Admitting Member Role: Power Station Operator Address: Address: [address] [facility] [address] [place] [address]- [place] Name: MARK SMITH DO Position: P4 Physician - Primary Care Med Service: Active Provider Member Role: Primary Care Physician Address: Address: [address] [place] [address]- Name: LENARD ASENCIO MD Position: P4 Oncology Provider Med Service: AMB HEM/ONC Member Role: Oncologist Address: Address: [address] [place] [address] Hematology [place] [address]- Care Team Related Persons Name: MY KYARA Care Team Personnel Name: ANA VILLA MD Position: P4 Physician - Urologist Member Role: Urologist Address: Address: [address] [place], [place] [id number]- Name: ANITA BARNHART MD Position: [facility] Physician Member Role: Neurologist Address: Address: [address] [place], [place] [id number]- Name: EDILBERTO FRYE MD Position: Physician Member Role: Power Station Operator Address: Address: [facility] [address] [facility] [address] [place] [address]- [place] Name: MARK SMITH DO Position: P4 Physician - Primary Care Member Role: Primary Care Physician Address: Address: [address] [place] [address]- Name: LENARD ASENCIO MD Position: P4 Oncology Provider Member Role: Oncologist Address: Address: [address] [place] [address] Hematology [place] [address]- Care Team Related Persons Name: MY [employer] Care Team Personnel Name: ANA VILLA MD Position: P4 Physician - Urologist Member Role: Urologist Address: Address: [address] [place], [place] [id number]- Name: ANITA BARNHART MD Position: [facility] Physician Member Role: Neurologist Address: Address: [address] [place], [place] [id number]- Name: EDILBERTO FRYE MD Position: Physician Member Role: Power Station Operator Address: Address: [address] [place] [address] [address] [place] [address]- [place] Name: AMRK SMITH DO Position: P4 Physician - Primary Care Member Role: Primary Care Physician Address: Address: [address] [place] [address]- Name: LENARD ASENCIO MD Position: P4 Oncology Provider Member Role: Oncologist Address: Address: [address] [place] [address] Hematology [place] [address]- Care Team Related Persons Name: [employer] Care Team Personnel Name: ANA VILLA MD Position: P4 Physician - Urologist Member Role: Urologist Address: Address: [address] [place], [place] [id number]- Name: ANITA BARNHART MD Position: [facility] Physician Member Role: Neurologist Address: Address: [address] [place] [address]- Name: EDILBERTO FRYE MD Position: Physician Member Role: Power Station Operator Address: Address: [address] [facility] [address] [place] [address]- Name: LENARD ASENCIO MD Position: P4 Oncology Provider Member Role: Oncologist Address: Address: [address] [place] [address] Hematology [place] [address]- Name: KEVON MACKEY DO Position: P4 Physician - Primary Care Member Role: Primary Care Physician Address: Address: [address] [place] [address] Care Team Related Persons Name: KYARA PEPE Care Team Personnel Name: ANA VILLA MD Position: P4 Physician - Urologist Member Role: Urologist Address: Address: [address] [place], [place] [id number]- Name: ANITA BARNHART MD Position: [facility] Physician Member Role: Neurologist Address: Address: [address] [place] [id number]- Name: EDILBERTO FRYE MD Position: Physician Member Role: Power Station Operator Address: Address: [address] [place] [address] [address] [place], [place] [id number] [place] [address] Name: LENARD ASENCIO MD Position: P4 Oncology Provider Member Role: Oncologist Address: Address: [address] [place] [address] Hematology and Oncology [place] [id number]- Name: KEVON MACKEY DO Position: P4 Physician - Primary Care Member Role: Primary Care Physician Address: Address: [address] [place] [address] Care Team Related Persons Name: KYARA PEPE [...] BE BASED ON THE PRIMARY CLINICAL RECORDS. [employer] provides no warranty or guarantee of the accuracy or completeness of information in this document.
== END | disposition home or self-care (01) ==
LOC: US 07:44
PROVIDERS: PCP Internal Medicine; Referring Provider Internal Medicine; Visit Provider Internal Medicine
DX: K70.30 Alcoholic cirrhosis of liver without ascites (principal)
CPT/HCPCS: 76705; 76981